=== PATIENT | female | born 1970 | race Caucasian/White ===

== ENCOUNTER → 2023-12-09 | Outpatient (CLI) | payer OTHER, SELFPAY ==
--- NOTE | 2023-12-09 15:57 | MRI_ITS ---
STUDY: MRI LUMBAR SPINE WITHOUT CONTRAST REASON FOR EXAM: Female, 53 years old. Pain TECHNIQUE: Standardized fat and water weighted pulse sequences were obtained in the sagittal and axial planes. COMPARISON: Radiograph lumbar spine November 20, 2023 FINDINGS: T12-L1: Normal endplates. Normal disc height, hydration and morphology. Normal bilateral facet joints. Normal central canal and bilateral lateral recesses. Normal bilateral intervertebral neural foramina. Normal lumbar lordosis. There is no substantial scoliosis. Normal conus medullaris that terminates at the L1 level. Buckling of the cauda equina. L1-2: Normal endplates. Normal disc height, hydration and morphology. Normal bilateral facet joints. Normal central canal and bilateral lateral recesses. Normal bilateral intervertebral neural foramina. L2-3: Fluid-filled hypertrophic facets and mild broad-based annular bulge causing mild narrowing of the thecal sac and neural foramina. L3-4: Moderate circumferential disc marginal osteophyte. Severe trefoil type narrowing of the thecal sac and neural foramina fluid-filled hypertrophic facet disease. L4-5: Normal endplates. Decreased disc height, hydration and morphology. Normal bilateral facet joints. Normal central canal and bilateral lateral recesses. Normal bilateral intervertebral neural foramina. Posterior fusion rods and bilateral pedicular screws L4 and L5. Laminectomy. L5-S1: Normal endplates. Decreased disc height, hydration and morphology. Normal bilateral facet joints. Normal central canal and bilateral lateral recesses. Normal bilateral intervertebral neural foramina. Bilateral pedicular screws and posterior fusion rods L5-S1. Laminectomy. Normal visualized sacral ala. Normal visualized paraspinous soft tissue structures. MRI/Spine Lumbar (Routine) IMPRESSION: Posterior interbody fusion L4-L5 and S1. Severe spinal stenosis and L3-4. Electronically Signed: Ned Parker MD at 1:12 EDT ,
== END | disposition home or self-care (01) ==
LOC: MRI 15:35
PROVIDERS: PCP Internal Medicine; Referring Provider Orthopaedic Surgery Orthopaedic Surgery of the Spine; Visit Provider Orthopaedic Surgery Orthopaedic Surgery of the Spine
DX: M43.16 Spondylolisthesis, lumbar region (principal)
CPT/HCPCS: 72148

== ENCOUNTER → 2024-12-13 | Outpatient (CLI) | payer OTHER, SELFPAY | END | disposition home or self-care (01) | LOC: LAB 15:33 | PROVIDERS: Referring Provider Anesthesiology; Visit Provider Anesthesiology | DX: E11.9 Type 2 diabetes mellitus without complications (principal) | CPT/HCPCS: 36415; 83036 ==

== ENCOUNTER → 2025-02-03 | Outpatient (CLI) | payer OTHER, SELFPAY | END | disposition home or self-care (01) | LOC: LAB 09:12 | PROVIDERS: Referring Provider Anesthesiology; Visit Provider Anesthesiology | DX: E11.9 Type 2 diabetes mellitus without complications (principal) | CPT/HCPCS: 36415; 83036 ==

== ENCOUNTER → 2025-03-16 | Outpatient (CLI) | payer OTHER, SELFPAY ==
--- NOTE | 2025-03-16 16:04 | MRI_ITS ---
PROCEDURE: SPINE CERVICAL (ROUTINE) 03/16/2025 REASON FOR EXAM: CERVICAL RADICULOPATHY TECHNIQUE: SPINE CERVICAL (ROUTINE) Multiplanar and multisequence images were obtained without IV contrast administration. COMPARISON: None. FINDINGS: Vertebrae: Cervical vertebral body heights are preserved. Bone marrow signal is unremarkable. Alignment: Normal. No spondylolisthesis. Spinal Cord: Cervical spinal cord is of normal size and signal intensities. Structures at the foramen magnum are unremarkable. C2-3: Facet joint arthropathy. No foraminal or canal stenosis. C3-4: Disc osteophyte complex. Facet joint arthropathy. Severe right and mild left foramina stenosis. No canal stenosis. C4-5: Disc osteophyte complex. Uncovertebral hypertrophy. Facet joint arthropathy. Severe left and mild right foramina stenosis. No canal stenosis. C5-6: Disc osteophyte complex. Uncovertebral hypertrophy. Facet joint arthropathy. Mild left and moderate right foramina stenosis. Mild canal stenosis. C6-7: Disc osteophyte complex. Facet joint arthropathy. Severe left and mild right foramina stenosis. Mild canal stenosis. C7-T1: Unremarkable MRI/Spine Cervical (Routine) IMPRESSION: Severe right foramina stenosis at C3-C4, severe left foramina stenosis at C4-C5 and C6-C7. No significant canal stenosis. Reading Location: [facility]
--- NOTE | 2025-03-16 16:04 | MRI_ITS ---
PROCEDURE: SPINE LUMBAR (ROUTINE) 03/16/2025 REASON FOR EXAM: LUMBAR RADICULOPATHY TECHNIQUE: SPINE LUMBAR (ROUTINE) COMPARISON: Lumbar spine MRI December 09, 2023. FINDINGS: Vertebrae: Preserved in height and signal Alignment: Normal alignment. Conus Medullaris: Unremarkable. Crowding at the cauda equina nerves posterior to L2. L1-2: No foraminal or canal stenosis. L2-3: Disc bulge. Prominence of the extra dural fat. Facet joint arthropathy. Severe narrowing of the lumbar canal. Mild bilateral inferior neural foramina stenosis. L3-4: Disc bulge. Facet joint arthropathy. Severe canal stenosis. Mild bilateral foramina stenosis. L4-5: Status post posterior fusion and laminectomies. No significant foraminal stenosis. L5-S1: Status post posterior fusion and laminectomies. No significant foraminal stenosis. Sacrum: Unremarkable. MRI/Spine Lumbar (Routine) IMPRESSION: Status post posterior fusion of L4-L5 and L5-S1. Severe canal stenosis at L2-L3 and L3-L4. Compared to MRI December 09, 2023, worsening stenosis of the canal at L2-L3. Reading Location: [id number]
== END | disposition home or self-care (01) ==
LOC: MRI 16:02
PROVIDERS: Referring Provider Orthopaedic Surgery Orthopaedic Surgery of the Spine; Visit Provider Orthopaedic Surgery Orthopaedic Surgery of the Spine
DX: M54.12 Radiculopathy, cervical region (principal); M54.16 Radiculopathy, lumbar region; M43.26 Fusion of spine, lumbar region; M43.16 Spondylolisthesis, lumbar region
CPT/HCPCS: 72141; 72148

== ENCOUNTER → 2025-06-08 | Outpatient (CLI) | payer OTHER, SELFPAY ==
--- NOTE | 2025-06-08 16:27 | CT_ITS ---
PROCEDURE: CT SPINE LUMBAR WITHOUT CONTRAST 06/08/2025 REASON FOR EXAM: LUMBAR STENOSIS TECHNIQUE: Procedure Code: CTSPL Modality: CT Procedure: SPINE LUMBAR WITHOUT CONTRAST Coronal and Sagittal reconstruction series were provided. One or more dose reduction techniques were used (e.g., Automated exposure control, adjustment of the mA and/or kV according to patient size, use of iterative reconstruction technique COMPARISON: Correlation with lumbar spine MRI 03/16/2025. RADIATION DOSE SUMMARY: CTDlvol: 41.85 mGy DLP: 1069.93 mGycm FINDINGS: Postoperative changes of dorsal decompressive laminectomy and posterior metallic instrumented fusion from L4-S1. No evidence of hardware loosening or failure. No acute fracture or subluxation. Alignment is anatomic. Multilevel spondylotic changes with varying degrees of disc space narrowing with vacuum disc phenomena, prominent endplate sclerosis with multiple scattered degenerative Schmorl's nodes and/or subchondral cysts, anterior endplate osteophytosis, and hypertrophic facet arthropathy. Redemonstrated disc bulging with moderate-advanced spinal canal stenosis at L3- 4, and mild-moderate stenosis at L2-3. No high-grade neural foraminal narrowing appreciated. CT/Spine Lumbar without Contrast IMPRESSION: Postop changes of dorsal decompression and instrumented fusion from L4-S1. Multilevel spondylotic changes with disc bulging at the adjacent segments, with redemonstrated moderate-advanced spinal canal stenosis at L3-4, and mild-moderate stenosis at L2-3, which is better depicted on the prior MRI from 03/16/2025. Reading Location: [id number]
== END | disposition home or self-care (01) ==
LOC: CT 16:22
PROVIDERS: Referring Provider Orthopaedic Surgery Orthopaedic Surgery of the Spine; Visit Provider Orthopaedic Surgery Orthopaedic Surgery of the Spine
DX: M48.062 Spinal stenosis, lumbar region with neurogenic claudication (principal); Z98.1 Arthrodesis status
CPT/HCPCS: 72131

== ENCOUNTER 2025-06-12 12:04 | Observation (INO) | payer OTHER, SELFPAY ==
--- NOTE | 2025-06-01 13:37 | EKG12_ITS ---
Test Reason : PREOP
[2025-06-01 15:11] LABS: Hematocrit 37.0 % (37-47); Hemoglobin 13.3 g/dL (12.0-15.0); Immature Granulocytes Count 0.040 X10^3/uL (0.0-0.0); Mean Corp Hgb Conc 35.9 g/dL (32-36); Mean Corpuscular Volume 84.9 fL (81-99); Mean Platelet Vol. 9.1 fl (6.2-12.0); NRBC Flagged by Analyzer 0 % (0-5); Platelet Count 297 K/mm3 (150-450); RBC Distribution Width CV 12.3 % (11.6-14.6); RBC Distribution Width SD 37.7 fl (35.1-43.9); Red Blood Count 4.36 M/mm3 (4.2-5.4); White Blood Count 7.1 K/mm3 (4.4-11.0)
[2025-06-01 16:02] LABS: Anion Gap 14 (5-15); BUN 13 mg/dL (4-19); BUN/Creat Ratio 25.1 RATIO (10-20); Calcium,Total 9.1 mg/dL (7.6-11.0); Carbon Dioxide 18.6 mmol/L (21.0-32.0); Chloride 95 mmol/L (98-108); Glucose 135 mg/dL (70-99); Magnesium 1.8 mg/dL (1.5-2.2); Potassium 4.4 mmol/L (3.3-5.1)
--- NOTE | 2025-06-02 17:22 | PAT.ANESEVAL ---
Pre-Assessment Diagnosis/Proposed Procedure Planned Operative Procedure(s): 360 LUMBAR FUSION L2-L3 L3-4 WITH REVISION OF POSTERIOR INSTRUMENTATION L2-3 L3-4 L4-5 L5-S1 REMOVAL OF PREVIOUS HARDWARE Anesthesia History Anesthesia History - gravedigger: Anesthesia History - gravedigger Hx Hospitalization No 05/26/25 10:10 Any Problems With Anesthesia No 05/26/25 10:10 Cholinesterase deficiency No 05/26/25 10:10 You/Your Family Experience No 05/26/25 10:10 fever (hyperthermia) with Relationship Recent Exposure to Contagious Disease Does patient have nerve No 05/26/25 10:10 stimulator Patient instructed to have device shut off --Does patient have Pacemaker or ICD? When Was Last Pacemaker Check QUESTION #4 FULL TEXT: You/Your Family Experience fever (hyperthermia) with Anesthesia Last Oral Intake Last Oral intake: Last Oral Intake NPO since Meds taken in AM with sips of water? Meds patient instructed to take am of surgery PONV PONV - gravedigger: PONV - gravedigger Female Yes 05/26/25 10:10 HX of Motion Sickness Yes 05/26/25 10:10 HX of N/V After Surgery No 05/26/25 10:10 Non-Smoker Yes 05/26/25 10:10 Duration of Surgery greater Yes 05/26/25 10:10 than 60 minutes Number of Risk Factors 4 05/26/25 10:10 PONV Score Severe Risk 05/26/25 10:10 Height & Weight Height & Weight: Anesthesia: Height & Weight Height 5 ft 6.5 in 03/23/25 13:41 Respiratory Assessment Respiratory Assessment - gravedigger: Respiratory Tract Infection Hx - gravedigger Hx Respiratory Tract Infection No 05/26/25 10:10 STOP Sleep Apnea STOP Sleep Apnea - gravedigger: STOP Sleep Apnea - gravedigger Hx Hypertension Yes: CONTROLLED WITH MEDS 05/26/25 10:10 Hx Sleep Apnea Yes 05/26/25 10:10 CPAP Yes 05/26/25 10:10 BIPAP No 05/26/25 10:10 Do you snore loudly (louder than talking or can be heard Do you often feel tired/ fatigued/ sleepy during daytime? Has anyone observed you stop breathing during sleep? STOP Results Positive 05/26/25 10:10 QUESTION #5 FULL TEXT : Do you snore loudly (louder than talking or can be heard through closed doors)? 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 Specify any problems Hx of Preganancy in last 3 No 05/26/25 10:10 Months Nurse Filling Out Transfusion DSCHRIBER 05/26/25 10:10 & Questions: Date: 05/26/25 05/26/25 10:10 Time: 10:12 05/26/25 10:10 Patient unable to answer at this time (ie. confused, unrespo /Reproduction History /Reproductive History - gravedigger: /Reproductive Hx- gravedigger Hx Now No 05/26/25 10:10 Gestational Age (in weeks): EDC: Hx Hx Para Hx Section SAB No 05/26/25 10:10 PFSH Medical History (Updated 05/26/25 @ 10:23 by Natalya Tejeda) Loss of hearing Wears glasses Post-menopausal Marijuana use Thyroid disease Ambulates with cane Walker as ambulation aid High cholesterol Back pain TIA (transient ischemic attack) Syncope Dietary restriction Vapes nicotine containing substance Former smoker CPAP (continuous positive airway pressure) dependence History of pain when walking History of echocardiogram Lumbar stenosis Cervical radiculopathy PTSD (post-traumatic stress disorder) Bipolar 1 disorder Vitamin D deficiency Neuropathy Hypertension Diabetes type 2, controlled Chronic bronchitis Arthritis Home Medications ?Medication ?Instructions ?Recorded ?Last Taken ?Type carvedilol 6.25 mg tablet 12.5 mg PO BID HEART 09/22/22 Unknown History losartan 100 mg tablet 100 mg PO DAILY BP 09/22/22 Unknown History multivitamin 1 tab PO DAILY SUPPLEMENT 09/22/22 Unknown History aspirin 81 mg tablet 81 mg PO DAILY HEART HEALTH 11/20/23 Unknown History magnesium 250 mg tablet 500 mg PO QHS CRAMPS 11/20/23 Unknown History nifedipine 30 mg tablet,extended 90 mg PO DAILY BP 11/20/23 Unknown History release turmeric root extract 500 mg 1,000 mg PO BID SUPPLEMENT 11/20/23 Unknown History capsule metformin 500 mg tablet,extended 1,000 mg PO BID DIABETES 12/17/23 Unknown History release 24 hr melatonin 3 mg capsule 5 mg PO HS PRN sleep 01/05/25 Unknown History bupropion HCl 300 mg 24 hr tablet, 300 mg PO QAM PTSD 30 days #30 tabs 05/23/25 Unknown Rx extended release venlafaxine 150 mg 150 mg PO DAILY BIPOLAR 30 days 05/23/25 Unknown Rx capsule,extended release 24 hr #30 caps INNO CLEANSE 2 cap PO DAILY FIBER 05/26/25 Unknown History NMNH 2 cap PO DAILY SUPPLEMENT 05/26/25 Unknown History aripiprazole 15 mg tablet 15 mg PO QHS BIPOLAR 05/26/25 Unknown History diclofenac potassium 50 mg tablet 50 mg PO TID PRN pain 05/26/25 Unknown History omega 2-itq-njp-fish oil 1,200 mg 2 cap PO DAILY SUPPLEMENT 05/26/25 Unknown History (144 mg-216 mg) capsule (Fish Oil) pioglitazone 30 mg tablet 30 mg PO QHS DIABETES 05/26/25 Unknown History vitamin D3 125 mcg (5,000 1 cap PO DAILY SUPPLEMENT 05/26/25 Unknown History unit)-vitamin K2 100 mcg capsule carbamazepine 200 mg tablet 300 mg (1.5 x 200 mg) PO BID 05/31/25 Unknown Rx BIPOLAR 30 days #90 tabs Allergy/AdvReac Type Severity Reaction Status Date / Time azithromycin Allergy Mild Hives Verified 05/26/25 09:51 Sulfa (Sulfonamide Allergy Mild Other Verified 05/26/25 09:51 Antibiotics) Family History Other Alcoholism Anxiety Arthritis defect Breast cancer CVA (cerebral vascular accident) Cancer Depression Diabetes Hypertension Mental disorder Myocardial infarction Suicide attempt Surgical History (Updated 05/26/25 @ 10:23 by Natalya Tejeda) Hx of colonoscopy Hx of dilation and curettage Hx of decompressive lumbar laminectomy History of lumbar fusion Social History Smoking Status: Former smoker Smokeless tobacco user: other alcohol intake: current alcohol intake frequency: other details: Rarley 3-4 a year substance use type: does not use Audit: Pertinent Findings Pertinent Findings EKG Perinent findings: 06/01/2025. Normal sinus rhythm. Additional pertinent findings: 06/01/2025. Sodium is 128. Recommendation Anesthesia Recommendation Anesthesia recommendation: F/U recommended (Patient's latest sodium is 128. No previous labs to compare. Patient needs sodium to be over 130 for surgery. Recommend medicine follow-up and treatment.)
--- NOTE | 2025-06-08 16:32 | PAT.ANESEVAL ---
Pre-Assessment Diagnosis/Proposed Procedure Planned Operative Procedure(s): 360 LUMBAR FUSION L2-L3 L3-4 WITH REVISION OF POSTERIOR INSTRUMENTATION L2-3 L3-4 L4-5 L5-S1 REMOVAL OF PREVIOUS HARDWARE Anesthesia History Anesthesia History - progress developer: Anesthesia History - progress developer Hx Hospitalization No 05/26/25 10:10 Any Problems With Anesthesia No 05/26/25 10:10 Cholinesterase deficiency No 05/26/25 10:10 You/Your Family Experience No 05/26/25 10:10 fever (hyperthermia) with Relationship Recent Exposure to Contagious Disease Does patient have nerve No 05/26/25 10:10 stimulator Patient instructed to have device shut off --Does patient have Pacemaker or ICD? When Was Last Pacemaker Check QUESTION #4 FULL TEXT: You/Your Family Experience fever (hyperthermia) with Anesthesia Last Oral Intake Last Oral intake: Last Oral Intake NPO since Meds taken in AM with sips of water? Meds patient instructed to take am of surgery PONV PONV - progress developer: PONV - progress developer Female Yes 05/26/25 10:10 HX of Motion Sickness Yes 05/26/25 10:10 HX of N/V After Surgery No 05/26/25 10:10 Non-Smoker Yes 05/26/25 10:10 Duration of Surgery greater Yes 05/26/25 10:10 than 60 minutes Number of Risk Factors 4 05/26/25 10:10 PONV Score Severe Risk 05/26/25 10:10 Height & Weight Height & Weight: Anesthesia: Height & Weight Height 5 ft 6.5 in 03/23/25 13:41 Respiratory Assessment Respiratory Assessment - progress developer: Respiratory Tract Infection Hx - progress developer Hx Respiratory Tract Infection No 05/26/25 10:10 STOP Sleep Apnea STOP Sleep Apnea - progress developer: STOP Sleep Apnea - progress developer Hx Hypertension Yes: CONTROLLED WITH MEDS 05/26/25 10:10 Hx Sleep Apnea Yes 05/26/25 10:10 CPAP Yes 05/26/25 10:10 BIPAP No 05/26/25 10:10 Do you snore loudly (louder than talking or can be heard Do you often feel tired/ fatigued/ sleepy during daytime? Has anyone observed you stop breathing during sleep? STOP Results Positive 05/26/25 10:10 QUESTION #5 FULL TEXT : Do you snore loudly (louder than talking or can be heard through closed doors)? 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 Specify any problems Hx of Preganancy in last 3 No 05/26/25 10:10 Months Nurse Filling Out Transfusion DSCHRIBER 05/26/25 10:10 & Questions: Date: 05/26/25 05/26/25 10:10 Time: 10:12 05/26/25 10:10 Patient unable to answer at this time (ie. confused, unrespo /Reproduction History /Reproductive History - progress developer: /Reproductive Hx- progress developer Hx Now No 05/26/25 10:10 Gestational Age (in weeks): EDC: Hx Hx Para Hx Section SAB No 05/26/25 10:10 PFSH Medical History (Updated 06/08/25 @ 15:43 by Karen Henry RN) Lumbar stenosis with neurogenic claudication Obesity (BMI 30-39.9) Loss of hearing Wears glasses Post-menopausal Marijuana use Thyroid disease Ambulates with cane Walker as ambulation aid High cholesterol Back pain TIA (transient ischemic attack) Syncope Dietary restriction Vapes nicotine containing substance Former smoker CPAP (continuous positive airway pressure) dependence History of pain when walking History of echocardiogram Lumbar stenosis Cervical radiculopathy PTSD (post-traumatic stress disorder) Bipolar 1 disorder Vitamin D deficiency Neuropathy Hypertension Diabetes type 2, controlled Chronic bronchitis Arthritis Home Medications ?Medication ?Instructions ?Recorded ?Last Taken ?Type carvedilol 6.25 mg tablet 12.5 mg PO BID HEART 09/22/22 Unknown History losartan 100 mg tablet 100 mg PO DAILY BP 09/22/22 Unknown History multivitamin 1 tab PO DAILY SUPPLEMENT 09/22/22 Unknown History aspirin 81 mg tablet 81 mg PO DAILY HEART HEALTH 11/20/23 Unknown History magnesium 250 mg tablet 500 mg PO QHS CRAMPS 11/20/23 Unknown History nifedipine 30 mg tablet,extended 90 mg PO DAILY BP 11/20/23 Unknown History release turmeric root extract 500 mg 1,000 mg PO BID SUPPLEMENT 11/20/23 Unknown History capsule metformin 500 mg tablet,extended 1,000 mg PO BID DIABETES 12/17/23 Unknown History release 24 hr melatonin 3 mg capsule 5 mg PO HS PRN sleep 01/05/25 Unknown History bupropion HCl 300 mg 24 hr tablet, 300 mg PO QAM PTSD 30 days #30 tabs 05/23/25 Unknown Rx extended release venlafaxine 150 mg 150 mg PO DAILY BIPOLAR 30 days 05/23/25 Unknown Rx capsule,extended release 24 hr #30 caps INNO CLEANSE 2 cap PO DAILY FIBER 05/26/25 Unknown History NMNH 2 cap PO DAILY SUPPLEMENT 05/26/25 Unknown History aripiprazole 15 mg tablet 15 mg PO QHS BIPOLAR 05/26/25 Unknown History diclofenac potassium 50 mg tablet 50 mg PO TID PRN pain 05/26/25 Unknown History omega 7-hdf-tpc-fish oil 1,200 mg 2 cap PO DAILY SUPPLEMENT 05/26/25 Unknown History (144 mg-216 mg) capsule (Fish Oil) pioglitazone 30 mg tablet 30 mg PO QHS DIABETES 05/26/25 Unknown History vitamin D3 125 mcg (5,000 1 cap PO DAILY SUPPLEMENT 05/26/25 Unknown History unit)-vitamin K2 100 mcg capsule carbamazepine 200 mg tablet 300 mg (1.5 x 200 mg) PO BID 05/31/25 Unknown Rx BIPOLAR 30 days #90 tabs Allergy/AdvReac Type Severity Reaction Status Date / Time azithromycin Allergy Mild Hives Verified 06/08/25 14:59 Sulfa (Sulfonamide Allergy Mild Other Verified 06/08/25 14:59 Antibiotics) Family History Other Alcoholism Anxiety Arthritis defect Breast cancer CVA (cerebral vascular accident) Cancer Depression Diabetes Hypertension Mental disorder Myocardial infarction Suicide attempt Surgical History Hx of colonoscopy Hx of dilation and curettage Hx of decompressive lumbar laminectomy History of lumbar fusion Social History Smoking Status: Former smoker Smokeless tobacco user: other alcohol intake: current alcohol intake frequency: other details: Rarley 3-4 a year substance use type: does not use Audit: Pertinent Findings HISTORY of Pertinent Findings History of Pertinent Findings: EKG Pertinent Findings EKG Perinent findings 06/01/2025. Normal sinus 06/02/25 17:24 rhythm. Additional Pertinent Findings Additional pertinent findings 06/01/2025. Sodium is 128. 06/02/25 17:24 Pertinent Findings Consult pertinent findings: 06/07/2025. [facility] family medicine. Hyponatremia due to medication per nephrology. Unable to wean medications secondary to dependency. Sodium is 130 on recheck. Sodium bicarb tablet 3 times daily x 3 days. Recommendation Anesthesia Recommendation Anesthesia recommendation: OPTIMIZED for anesthesia (Recheck sodium on day of surgery. As long as over 130, patient is cleared to proceed.)
[2025-06-12] VITALS (13 sets, daily range): BP systolic 114–199; BP diastolic 75–99; PULSE 60–98; RESP 14–18; TEMP 36.1–37.2; O2SAT 94–98; BMI 37.5; BMI 37.0
[2025-06-12] MEDS: Lactated Ringers 1,000 ML 15 ML IV (06:18)
[2025-06-12] MEDS: Magnesium 2 GM for ERAS IV (06:20)
--- NOTE | 2025-06-12 06:30 | RAD_ITS ---
RAD/Lumbar Spine 2 or 3 Views
--- NOTE | 2025-06-12 06:38 | PCM.PRE.AN2 ---
ASA Classification* ASA Classification ASA Classification: 2 Assessment & Plan Anesthesia* Anesthesia Assessment Anesthesia Assessment: Discussed sedation and/or anesthesia options, risks, benefits, and alternatives with patient/parents/legal guardian/POA. Questions invited. The patient/parents/legal guardian/POA seems to understand and agrees to proceed with anesthesia plan. Reviewed the physical assessment, medical history, allergy history and patient home medications list prior to surgery/procedure/anesthetic and documented any changes. Performed airway and anesthesia risk assessments. Anesthesia Type Anesthesia Type: General Anesthesia Focused Assessment* Temperature: 97.0 F Pulse Rate: 77 Blood Pressure: 164/99 Respiratory Rate: 18 Pulse Ox: 98 Airway Assessment Mouth opens: >3 cm Mallampati Score: II Labs Anesthesia Preop lab: CBC WBC, (4.4-11.0) 7.1 K/mm3 06/01/25, 14:22 RBC, (4.2-5.4) 4.36 M/mm3 06/01/25, 14:22 Hgb, (12.0-15.0) 13.3 g/dL 06/01/25, 14:22 Hct, (37-47) 37.0 % 06/01/25, 14:22 Plt Count, (150-450) 297 K/mm3 06/01/25, 14:22 CHEMISTRY Potassium, (3.3-5.1) 4.4 mmol/L 06/01/25, 14:22 Sodium, (133-145) 128 mmol/L L 06/01/25, 14:22 Magnesium, (1.5-2.2) 1.8 mg/dL 06/01/25, 14:22 BUN, (4-19) 13 mg/dL 06/01/25, 14:22 Creatinine, (0.70-1.20) 0.53 mg/dL L 06/01/25, 14:22 Glucose, (70-99) 135 mg/dL H 06/01/25, 14:22 COAG Pre-Assessment Diagnosis/Proposed Procedure Planned Operative Procedure(s): 360 LUMBAR FUSION L2-L3 L3-4 WITH REVISION OF POSTERIOR INSTRUMENTATION L2-3 L3-4 L4-5 L5-S1 REMOVAL OF PREVIOUS HARDWARE Anesthesia History 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 When Was Last Pacemaker Check QUESTION #4 FULL TEXT: You/Your Family Experience fever (hyperthermia) with Anesthesia Last Oral Intake Last Oral intake: Last Oral Intake NPO since 05:30 06/12/25 06:07 Meds taken in AM with sips of Yes 06/12/25 06:07 water? Meds patient instructed to see medlist 06/12/25 06:07 take am of surgery PONV PONV - marketing content specialist: PONV - marketing content specialist Female Yes 05/26/25 10:10 HX of Motion Sickness Yes 05/26/25 10:10 HX of N/V After Surgery No 05/26/25 10:10 Non-Smoker Yes 05/26/25 10:10 Duration of Surgery greater Yes 05/26/25 10:10 than 60 minutes Number of Risk Factors 4 05/26/25 10:10 PONV Score Severe Risk 05/26/25 10:10 Height & Weight Height & Weight: Anesthesia: Height & Weight Height 5 ft 6.5 in 06/12/25 06:07 Weight: 107 kg 06/12/25 06:07 Body Mass Index (BMI) 37.5 06/12/25 06:07 Respiratory Assessment Respiratory Assessment - marketing content specialist: Respiratory Tract Infection Hx - marketing content specialist Hx Respiratory Tract Infection No 05/26/25 10:10 STOP Sleep Apnea STOP Sleep Apnea - marketing content specialist: STOP Sleep Apnea - marketing content specialist Hx Hypertension Yes: CONTROLLED WITH MEDS 05/26/25 10:10 Hx Sleep Apnea Yes 05/26/25 10:10 CPAP Yes 05/26/25 10:10 BIPAP No 05/26/25 10:10 Do you snore loudly (louder than talking or can be heard Do you often feel tired/ fatigued/ sleepy during daytime? Has anyone observed you stop breathing during sleep? STOP Results Positive 05/26/25 10:10 QUESTION #5 FULL TEXT : Do you snore loudly (louder than talking or can be heard through closed doors)? Tobacco Use History Tobacco Use History - marketing content specialist: Tobacco Use History - marketing content specialist Tobacco Use Smoking Status Former smoker 05/26/25 10:10 Hx Tobacco Use No 05/26/25 10:10 Years Smoking Packs Smoked per Day Smoking Cessation Date was Yes - quit smoking within 15 05/26/25 10:10 within the last 15 years years Hx Smoking Cessation Date 08/10/22 05/26/25 10:10 Hx Smoking Cessation No 05/26/25 10:10 Counseling Hematologic Medial History Hematologic Hx - marketing content specialist: Hematologic Medical Hx - supervisor wet room Hx of Blood Transfusion No 05/26/25 10:10 Hx of Transfusion in last 3 No 05/26/25 10:10 Months Date of Last Transfusion (if within last 3 months) Ever experience any problems No 05/26/25 10:10 with transfusion(s)? Specify any problems Hx of Preganancy in last 3 No 05/26/25 10:10 Months Nurse Filling Out Transfusion DSCHRIBER 05/26/25 10:10 & Questions: Date: 05/26/25 05/26/25 10:10 Time: 10:12 05/26/25 10:10 Patient unable to answer at this time (ie. confused, unrespo /Reproduction History /Reproductive History - marketing content specialist: /Reproductive Hx- marketing content specialist Hx Now No 05/26/25 10:10 Gestational Age (in weeks): EDC: Hx Hx Para Hx Section SAB No 05/26/25 10:10 Active Medications Active Medications: Current Medications Generic Name Dose Route Start Last Admin Trade Name Freq PRN Reason Stop Dose Admin Acetaminophen 1,000 mg 06/12/25 07:30 06/12/25 06:19 Acetaminophen 500 Mg Tablet PO 06/12/25 07:31 1,000 mg PREOP ONE Administration Cefazolin Sodium 2 gm/ Sodium 110 mls @ 150 mls/hr 06/12/25 07:30 Chloride IV 06/12/25 08:13 INTRAOP ONE Tranexamic Acid 1,000 mg/ 110 mls @ 440 mls/hr 06/12/25 07:30 Sodium Chloride IV 06/12/25 07:44 INTRAOP ONE Tranexamic Acid 1,000 mg/ 110 mls @ 440 mls/hr 06/12/25 07:30 Sodium Chloride IV 06/12/25 07:44 INTRAOP ONE Magnesium Sulfate 2 gm/ 104 mls @ 208 mls/hr 06/12/25 07:30 06/12/25 06:20 Dextrose IV 06/12/25 07:59 208 mls/hr PREOP ONE Administration Lactated Ringer's 1,000 mls @ 15 mls/hr 06/12/25 05:45 06/12/25 06:18 IV 15 mls/hr .Q48H SANJUANA Administration Insulin Human Lispro 1 - 6 unit 06/12/25 07:30 Insulin Lispro 100 Unit/Ml Insuln.Pen SC 06/13/25 07:31 Q4H PRN PRN BG>/= 180, SEE PROTOCOL Protocol PFS Medical History Lumbar stenosis with neurogenic claudication Obesity (BMI 30-39.9) Loss of hearing Wears glasses Post-menopausal Marijuana use Thyroid disease Ambulates with cane Walker as ambulation aid High cholesterol Back pain TIA (transient ischemic attack) Syncope Dietary restriction Vapes nicotine containing substance Former smoker CPAP (continuous positive airway pressure) dependence History of pain when walking History of echocardiogram Lumbar stenosis Cervical radiculopathy PTSD (post-traumatic stress disorder) Bipolar 1 disorder Vitamin D deficiency Neuropathy Hypertension Diabetes type 2, controlled Chronic bronchitis Arthritis Home Medications ?Medication ?Instructions ?Recorded ?Last Taken ?Type carvedilol 6.25 mg tablet 12.5 mg PO BID HEART 09/22/22 06/12/25 History multivitamin 1 tab PO DAILY SUPPLEMENT 09/22/22 06/10/25 History aspirin 81 mg tablet 81 mg PO DAILY HEART HEALTH 11/20/23 06/10/25 History magnesium 250 mg tablet 500 mg PO QHS CRAMPS 11/20/23 06/10/25 History nifedipine 30 mg tablet,extended 90 mg PO DAILY BP 11/20/23 06/12/25 History release turmeric root extract 500 mg 1,000 mg PO BID SUPPLEMENT 11/20/23 06/10/25 History capsule metformin 500 mg tablet,extended 1,000 mg PO BID DIABETES 12/17/23 06/11/25 History release 24 hr melatonin 3 mg capsule 5 mg PO HS PRN sleep 01/05/25 06/10/25 History bupropion HCl 300 mg 24 hr tablet, 300 mg PO QAM PTSD 30 days #30 tabs 05/23/25 06/11/25 Rx extended release venlafaxine 150 mg 150 mg PO DAILY BIPOLAR 30 days 05/23/25 06/12/25 Rx capsule,extended release 24 hr #30 caps INNO CLEANSE 2 cap PO DAILY FIBER 05/26/25 Unknown History aripiprazole 15 mg tablet 15 mg PO QHS BIPOLAR 05/26/25 06/11/25 History omega 6-ohj-ysh-fish oil 1,200 mg 2 cap PO DAILY SUPPLEMENT 05/26/25 06/10/25 History (144 mg-216 mg) capsule (Fish Oil) pioglitazone 30 mg tablet 30 mg PO QHS DIABETES 05/26/25 06/11/25 History vitamin D3 125 mcg (5,000 1 cap PO DAILY SUPPLEMENT 05/26/25 06/10/25 History unit)-vitamin K2 100 mcg capsule carbamazepine 200 mg tablet 300 mg (1.5 x 200 mg) PO BID 05/31/25 06/12/25 Rx BIPOLAR 30 days #90 tabs meloxicam 7.5 mg tablet 7.5 mg PO DAILY 06/12/25 06/11/25 History valsartan 40 mg tablet (Diovan) 160 mg PO DAILY 06/12/25 06/12/25 History Allergy/AdvReac Type Severity Reaction Status Date / Time azithromycin Allergy Mild Hives Verified 06/12/25 06:01 Sulfa (Sulfonamide Allergy Mild Other Verified 06/12/25 06:01 Antibiotics) Family History Other Alcoholism Anxiety Arthritis defect Breast cancer CVA (cerebral vascular accident) Cancer Depression Diabetes Hypertension Mental disorder Myocardial infarction Suicide attempt Surgical History Hx of colonoscopy Hx of dilation and curettage Hx of decompressive lumbar laminectomy History of lumbar fusion Social History Smoking Status: Former smoker Smokeless tobacco user: other alcohol intake: current alcohol intake frequency: other details: Rarley 3-4 a year substance use type: does not use Review of Systems (Anesthesia) ROS Narrative System reviewed and no additional complaints, except as documented.
--- NOTE | 2025-06-12 07:16 | HP.PCM_ITS ---
History and Physical
--- NOTE | 2025-06-12 07:16 | PCM.HP.BLA ---
History and Physical Date of Admission: 06/12/25 MR#: [id number] Acct: [id number] Name: REINIER EWING Rep #: [id number] : 1970 Provider: Dr. Yair Benedict MD Age/Sex: 55/F Location: [facility] [place] Status: Signed Intake Vital Signs 03/23/2513:41 05/23/2513:49 06/08/2514:55 Height 5 ft 6.5 in 5 ft 6.5 in 5 ft 6.5 in Weight: 235 lb 2 oz 236 lb BMI 37.3 37.5 Intake Visit Reasons: lumbar spine Chief Complaint: Lumbar spine pre op Accompanied by: Self Is patient in pain?: Yes Pain scale (1-10): 5 Allergies azithromycin Allergy (Mild, Verified 06/08/25 14:59) Hives Sulfa (Sulfonamide Antibiotics) Allergy (Mild, Verified 06/08/25 14:59) Other Medications ?Medication ?Instructions ?Recorded ?Confirmed ?Type carvedilol 6.25 mg tablet 12.5 mg PO BID HEART 09/22/22 06/08/25 History losartan 100 mg tablet 100 mg PO DAILY BP 09/22/22 06/08/25 History multivitamin 1 tab PO DAILY SUPPLEMENT 09/22/22 06/08/25 History aspirin 81 mg tablet 81 mg PO DAILY HEART HEALTH 11/20/23 06/08/25 History magnesium 250 mg tablet 500 mg PO QHS CRAMPS 11/20/23 06/08/25 History nifedipine 30 mg tablet,extended 90 mg PO DAILY BP 11/20/23 06/08/25 History release turmeric root extract 500 mg 1,000 mg PO BID SUPPLEMENT 11/20/23 06/08/25 History capsule metformin 500 mg tablet,extended 1,000 mg PO BID DIABETES 12/17/23 06/08/25 History release 24 hr melatonin 3 mg capsule 5 mg PO HS PRN sleep 01/05/25 06/08/25 History bupropion HCl 300 mg 24 hr tablet, 300 mg PO QAM PTSD 30 days #30 tabs 05/23/25 06/08/25 Rx extended release venlafaxine 150 mg 150 mg PO DAILY BIPOLAR 30 days 05/23/25 06/08/25 Rx capsule,extended release 24 hr #30 caps INNO CLEANSE 2 cap PO DAILY FIBER 05/26/25 06/08/25 History NMNH 2 cap PO DAILY SUPPLEMENT 05/26/25 06/08/25 History aripiprazole 15 mg tablet 15 mg PO QHS BIPOLAR 05/26/25 06/08/25 History diclofenac potassium 50 mg tablet 50 mg PO TID PRN pain 05/26/25 06/08/25 History omega 7-wdm-yfk-fish oil 1,200 mg 2 cap PO DAILY SUPPLEMENT 05/26/25 06/08/25 History (144 mg-216 mg) capsule (Fish Oil) pioglitazone 30 mg tablet 30 mg PO QHS DIABETES 05/26/25 06/08/25 History vitamin D3 125 mcg (5,000 1 cap PO DAILY SUPPLEMENT 05/26/25 06/08/25 History unit)-vitamin K2 100 mcg capsule carbamazepine 200 mg tablet 300 mg (1.5 x 200 mg) PO BID 05/31/25 06/08/25 Rx BIPOLAR 30 days #90 tabs Have you fallen in the past year?: Yes PFSH Medical History (Updated 06/08/25 @ 15:43 by Karen Henry RN) Lumbar stenosis with neurogenic claudication Obesity (BMI 30-39.9) Loss of hearing Wears glasses Post-menopausal Marijuana use Thyroid disease Ambulates with cane Walker as ambulation aid High cholesterol Back pain TIA (transient ischemic attack) Syncope Dietary restriction Vapes nicotine containing substance Former smoker CPAP (continuous positive airway pressure) dependence History of pain when walking History of echocardiogram Lumbar stenosis Cervical radiculopathy PTSD (post-traumatic stress disorder) Bipolar 1 disorder Vitamin D deficiency Neuropathy Hypertension Diabetes type 2, controlled Chronic bronchitis Arthritis Surgical History Hx of colonoscopy Hx of dilation and curettage Hx of decompressive lumbar laminectomy History of lumbar fusion Family History Other Alcoholism Anxiety Arthritis defect Breast cancer CVA (cerebral vascular accident) Cancer Depression Diabetes Hypertension Mental disorder Myocardial infarction Suicide attempt Social History Smoking Status: Former smoker Smokeless tobacco user: other alcohol intake: current alcohol intake frequency: other details: Marc 3-4 a year substance use type: does not use HPI lumbar spine Details: This documentation accurately reflects the service provided and the decisions made by me, Dr. Yair Benedict MD 06/08/25 3077. Part of today?s visit was documented by Maliha Mckeon MA, acting as scribe. REINIER EWING is a 55 year old F here today for lumbar spine pre op. She is scheduled for L2-4 anterior and posterior fusion, revision posterior instrumentation from L2-S1, removal of previous hardware on 06-12-25. Patient states that her pain is a 5 today. She had a fall about 3 weeks ago. Patient states that she is okay. The patient is a 55-year-old female presenting with concerns related to hyponatremia and its impact on her upcoming spinal surgery. Hyponatremia has been persistent, with recent sodium levels recorded between 128 and 130 mmol/L, which is below the normal range of 135 to 145 mmol/L. The patient attributes the low sodium levels to excessive water intake and possibly her psychiatric medication, Tegretol, although her psychiatrist disagrees with this assessment. The patient has a history of bipolar disorder, for which she has been on mood stabilizers for the past 20 years. She experienced a manic episode when her medication dose was reduced, necessitating a return to her previous dosage. Her psychiatrist has advised against altering her current medication regimen due to the risk of exacerbating her psychiatric symptoms. The patient also has a history of diabetes mellitus, with a recent HbA1c of 6.3%. She is aware of the need to maintain strict glycemic control to minimize surgical risks. Nicotine use is another concern, as the patient vapes approximately one pod per day. She acknowledges the negative impact of nicotine on healing and plans to reduce her usage. The patient has a history of spinal stenosis and is scheduled for a revision spinal surgery involving levels L3-3 and L3-4. She previously underwent surgery from L4 to S1 and is concerned about the stability of the existing hardware and the potential need for additional fixation points. A CT scan has been ordered to assess bone growth over the previous screws, which will aid in surgical planning. - Neurological: Reports manic episodes when medication dose is reduced. Denies other neurological symptoms. - Endocrine: Reports diabetes mellitus with HbA1c of 6.3%. - Psychiatric: Reports stable mood with current medication regimen. Denies depressive symptoms. - Musculoskeletal: Reports spinal stenosis and previous spinal surgery. Attestation: Documentation on this patient encounter was supported using ambient scribe technology/ voice AI technology. The patient consented to recording for the purpose of documenting the encounter. Provider reviewed content of the generated note prior to signature. 03/23/25: REINIER EWING is a 55 year old F here today for lumbar spine and cervical spine MRI review. Patient states that her pain is an 8 today. She would like to go over the MRI results to discuss what the next step would be. Her last Epidural was about 2-[address] Tolentino. The epidural injection lasted 3 weeks for her. She states that her pain decreased down to a 2 when she got the injection. Patient states that she has done physical therapy in the past for her back. She states that the physical therapy made the pain worse. Patient is currently doing massage therapy at home for about a week. The massage therapy is helping decrease the numbness in the right leg, but the numbness is still there. She reports weakness in her legs the right leg is worse than the left. She does have sleep apnea and uses a CPAP at night. She does have hypertension. She does not take a blood thinner. Ortho Exam General General: Yes no acute distress Neurologic: Yes alert and Yes oriented x3 Psychologic: Yes reasonable and appropriate Spine SPINE TESTING CERVICAL THORACIC LUMBAR Musculoskeletal Strength 0=absent - 5=normal Details: Examination of the lower back shows midline incisional scar. There is midline and paraspinal tenderness to lower lumbar spine. Neurologic evaluation of lower extremity shows 5 x 5 power,, except right ankle dorsiflexion which is grade 4, normal sensations in all dermatomes. Passive straight leg raise test is negative. Upper extremity shows 5 of 5 strength. Fabiano's negative. Romberg's is positive. Gait shows imbalance. Exam Narrative - Musculoskeletal: Examination of the back revealed pain upon palpation and visible scar from previous surgery. - Neurological: Weakness in right foot ankle dorsiflexion noted. - Neurological: Strength testing of upper extremities was performed, including elbow flexion and extension, and hand vp strategic planning strength. Coding Level of Care Code Off vis,est,level 4 Diagnoses Cervical radiculopathy M54.12 Lumbar radiculopathy M54.16 Fusion of lumbar spine M43.26 Spondylolisthesis, lumbar region M43.16 Other intervertebral disc degeneration, lumbar region M51.36 Spinal stenosis of lumbar region with neurogenic claudication M48.062 Neurogenic claudication status: with neurogenic claudication Obesity (BMI 30-39.9) E66.9 Time Spent (min) 35 Assessment and Plan Assessment and Plan (1) Cervical radiculopathy: Status: Acute (2) Lumbar radiculopathy: Status: Acute (3) Fusion of lumbar spine: Status: Acute (4) Spondylolisthesis, lumbar region: Status: Acute (5) Other intervertebral disc degeneration, lumbar region: Status: Acute (6) Lumbar stenosis: Status: Acute Qualifiers: Neurogenic claudication status: with neurogenic claudication Qualified Code(s): M48.062 - Spinal stenosis, lumbar region with neurogenic claudication (7) Obesity (BMI 30-39.9): Status: Acute Orders: Orders Spine Lumbar without Contrast 06/08/25 M48.062 - Spinal stenosis, lumbar region with neurogenic claudication, Z98.1 - Arthrodesis status Plan Again reviewed pt's cervical and lumbar MRI's in detail with patient. Cervical spine shows multilevel cervical disc degeneration without significant cord compression. Multilevel foraminal stenosis noticed. Lumbar spine shows prior L4-S1 fusion with degenerative changes at L2-3 and L3-4 causing severe stenosis. L3-4 shows spondylolisthesis with mild dynamic instability and x-rays done previously. Severe epidural lipomatosis seen. 1. Hyponatremia - The patient's sodium levels are currently below the normal range, which may impact surgical clearance. - The primary care physician and anesthesiologist will review lab results to determine surgical eligibility. 2. Bipolar Disorder - The patient is stable on her current dose of Tegretol, and any changes to her psychiatric medication are not advised due to the risk of manic episodes. 3. Diabetes Mellitus - The patient is advised to maintain strict glycemic control to minimize surgical risks. - Her HbA1c is currently 6.3%. 4. Nicotine Use Disorder - The patient is encouraged to reduce nicotine use to improve surgical outcomes and healing. 5. Spinal Stenosis - The patient is scheduled for revision spinal surgery at levels L3-3 and L3-4. - A CT scan will assess bone growth over previous hardware to aid in surgical planning. - Monitor sodium levels and follow up with primary care physician and anesthesiologist for surgical clearance. - Maintain current psychiatric medication regimen to prevent manic episodes. - Keep diabetes under control with a target HbA1c of 6.3% or lower. - Reduce nicotine use to aid in surgical recovery and healing. - Prepare for upcoming spinal surgery and complete any pre-operative imaging as instructed. Regarding the neck I recommend PT and pain management. The MRI does not show significant pressure on the spinal cord of the cervical spine. There is no surgical intervention at this time regarding the cervical spine. Regarding the lumbar spine, it does show stenosis above her previous fusion at L2-L3 and L3-L4. We discussed options for this including surgical and non surgical. Non surgical would include PT and continuing with pain management. Surgery would be a lumbar fusion extending the fusion to up to L2-4, with revision of posterior instrumented fusion from L2-S1 or a shorter construct depending on difficulty with removing previous hardware. Possibility of doing his stand-alone anterior procedure was also discussed. Discussed this procedure in detail and explained the risks, benefits and alternatives. The risks of surgery include but are not limited to infection, bleeding, injury to nerves or vessels, need for further surgery, ileus, vascular injury, visceral injury, DVT, pulmonary embolism, pneumonia, atelectasis, cardiopulmonary event, pseudoarthrosis, hardware failure, gait abnormality, adjacent segment degeneration. Discussed post-surgery restrictions in detail such as no bending, lifting, or twisting. Answered all questions to the patient?s satisfaction. Patient understands and agrees to proceed with surgery. Consent was signed.Follow up 2 weeks post operatively or sooner if pain, swelling, numbness or associated symptoms, or concerns develop. All questions answered. Patient in agreement of plan.
[2025-06-12] MEDS: Midazolam 2 MG/2 ML Syringe IV (08:03)
[2025-06-12] MEDS: Lidocaine 1% (5 ml sdv) 5 ML Vial IV (08:07)
[2025-06-12] MEDS: Cefazolin 1 GM/5 ML Vial 2 GM IV (08:16)
[2025-06-12] MEDS: PROPOFOL 21.94 MG IV (11:23)
[2025-06-12] MEDS: TRANEXAMIC ACID 1,000 MG/10 ML ML 2000 MG IV (11:24)
--- NOTE | 2025-06-12 12:10 | OP.PCM_ITS ---
Procedures Musculoskeletal
--- NOTE | 2025-06-12 12:10 | PCM.OPRPT ---
Procedures Musculoskeletal [id number]: Other Procedure See Report Operative Report (Standard) Operative Information Date of Procedure: 06/12/25 Pre-Operative Diagnosis: L3-4 spondylolisthesis L2-4 disc degeneration, stenosis with neurogenic claudication, prior L4-S1 fusion Post-Operative Diagnosis: Same Surgery/Procedure Performed: L2-4 oblique lumbar interbody fusion, anterior instrumentation dry cell sealer: Yes Director Of Development And Marketing: Maria Luisa Taylor Tasks completed by list of first job ideas: Closing, Removing tissue, Implanting device, Hemostasis: Electrocautery and Retracting Type of Anesthesia: General RN Documented Start/Stop Times: Operation Date: 06/12/25 07:30 Case Time Into Pre-Op 06/12/25 05:40 Out of Pre-Op 06/12/25 07:51 Anesthesia Start 06/12/25 07:58 Into Room 06/12/25 07:58 Procedure Start 06/12/25 08:44 Procedure End 06/12/25 11:58 Anesthesia End 06/12/25 12:05 Out of Room 06/12/25 12:05 Procedure Start Time: 08:44 Procedure Stop Time: 11:58 Select all DRAINS/GRAFTS/IMPLANTS that apply: Graft Graft details: Allograft cancellous chips, autologous bone marrow aspirate from left iliac crest and Implanted device Implanted device details: DePuy cougar lateral lumbar interbody cage?peek, 4 web 2 hole plate x 2 Estimated Blood Loss: 50 cc Specimen collected: No Description of surgery: Preoperative diagnosis: L3-4 spondylolisthesis, L2-4 disc degeneration, stenosis with neurogenic claudication, prior L4-S1 fusion Postoperative diagnosis: Same Name of procedures L2-4 oblique lumbar interbody fusion (OLIF), anterior instrumentation, minimally invasive left sided approach, lateral decubitus: ? L2-3 anterolateral spinal fusion 80066 ? L3-4 anterolateral fusion 35676/51 ? L2-3 insertion of cage 55301 ? L3-4 insertion of cage 06645/51 . L2-3 anterior instrumentation 83707 . L3-4 anterior instrumentation 55308/51 ? Bone graft aspirate left iliac crest separate incision ? Allograft cancellous chips Attending Surgeon: Dr. Yair Benedict Estimated blood loss: 50 mL Anesthesia: General Complications: None Indications: Patient is a 55-year-old pleasant lady who has had a long history of low back pain and right worse than left lower extremity radiation, difficulty walking distances, baseline right partial foot drop. Xrays & MRI revealed L2-4 disc degeneration with stenosis, L3-4 spondylolisthesis, prior L4-S1 fusion. CT confirmed adequate fusion L4-S1. After undergoing a prolonged period of nonoperative treatment, the patient elected to undergo surgical decompression & fusion. All surgical options were discussed with the patient including anterior and posterior approaches. Due to a very old posterior system, decision was made to perform an anterior stand-alone fusion with indirect decompression. All risks and benefits associated with the procedure were explained to the patient. The risks include but are not limited to infection, bleeding, injury to nerves and vessels including major vessels like IVC and aorta, persistent paresthesia, persistent pain, dural tear, need for further procedures, adjacent segment degeneration, pseudoarthrosis, hardware failure, retrograde ejaculation, paralytic ileus, etc. Procedure: The patient was identified in the preoperative holding suite using Unique patient identifiers. Skin was marked, consent was reviewed, and all questions were answered. The patient was then brought back to the operative room. A surgical timeout was performed to make sure correct procedure was being done on the correct patient and all operative room staff were on the same page. General endotracheal anesthesia was then given to the patient. Servin catheter was inserted. The patient was then carefully positioned in right lateral decubitus position with the left side up on a regular OR table. Axillary roll was placed and all bony prominences were well- padded. Hip positioners were placed in the posterior buttocks and anterior sternal area. The surgical area was prepped and draped in usual fashion. Preoperative antibiotic was injected IV as preoperative antibiotic. A final timeout was then again done just before starting the procedure. A 2 inch incision oblique was taken in the left lower quadrant of the abdomen 2 fingerbreadths away from the iliac crest and the lower ribs. Sharp dissection with Bovie was carried out up to the fascia covering the external oblique. The external oblique, internal oblique and transversus abdominis muscles were split along the muscle fibers and retroperitoneal space was entered. Sponge sticks were utilized to move the bowel and peritoneum fix-hi-yar-way and psoas muscle was exposed staying within the retroperitoneal plane. P[employer]R Labpak retractor system was positioned and the retractor blade was applied onto the psoas. The interval between psoas and midline structures was developed and appropriate retractors were placed. Once adequate interval was cleared, a disc space was identified and a marker x-ray was taken. This identified the L3-4 disc level. The prepsoas interval was then traced superiorly to expose the L2-3 disc. Annulotomy was done with a long handled knife. Pituitary was used to remove disc material. Curettes were used to prepare the endplates. Disc space spreaders were utilized to distract and increase the disc height. Near complete discectomy was performed. Trials of serially increasing sizes were used. A Jamshidi needle was used to aspirate bone marrow from the left anterior iliac crest through a separate incision and this aspirate was mixed with the allograft bone chips. A Depuy [place] cage of size of the 18 x 50 x 10 mm with 15 degrees lordosis was packed with corticocancellous allograft bone chips mixed with bone marrow aspirate. This was inserted into the L3-4 disc space. The retractors were then repositioned to expose the L2-3 disc and the procedure was repeated with complete discectomy and endplate preparation. Smaller disc distractors were also used to bluntly perform a contralateral annulotomy at both levels. Cage size was 18 x 50 x 10 mm at L2-3. AP and lateral C-arm pictures were taken to confirm good position of the cage. Some bone chips were also packed around the cages. To provide the best fixation, decision was made to perform an anterior instrumentation at both levels. A 4 web 2 hole plate was placed over L3-4 with 2 screws going to L3 and L4 bodies under C-arm AP control to make sure adequate fixation was achieved. Screw sizes were 5.5 by 45 mm at L3 and L4. L4 screw was placed in a way to miss the L4 pedicle screw going inferior to the pedicle screw. A similar 2 hole plate was also applied over the L2-3. Both plates were separate from the cage. Screw through the L2-3 plate was 5.5 by 45 mm at L2 and 6.5 x 35 mm at L3. Both AP and lateral C-arm pictures showed adequate positioning of the anterior instrumentation. Hemostasis was confirmed. The retractor blades were removed. Closure was done in layers with a continuous strand of # 1 Vicryl in all muscle layers. 2-0 Vicryl was used for subcutaneous tissue and 4-0 for Monocryl for the skin. Steri-Strips were applied and 4 x 4 gauze and Tegaderm were applied. Clinical Documentation Manager Maria Luisa Taylor PA-C. My physician assistant superintendent was a vital part of this case. They were important in appropriate retraction during the case, and protection of soft tissues during the procedure. Their intimate knowledge of the case and my steps aided in safe and expedient completion of the procedure as well as appropriate position of the patient during the surgery. They were also vital in assisting with closure under my direct supervision. Surgical Findings: See operative note Complications Complications: No
--- NOTE | 2025-06-12 12:15 | POSTOP.ANE_ITS ---
Anesthesia: Postop Eval I
--- NOTE | 2025-06-12 12:15 | PCM.POST.ANE ---
Anesthesia: Postop Eval I Current Vital Signs Temperature: 97.3 F Pulse Rate: 78 Blood Pressure: 137/81 Respiratory Rate: 16 Pulse Ox: 96 Assessment Airway patent: Yes Spontaneous unlabored respirations: Yes nausea: No Vomiting: No Anesthesia Complication: No Fluid Hydration Crystalloid volume administer (ml): 1,700 Total IV fluid infused: 1,700 Progress Note Anesthesia document: Postop Eval 1 completed: Yes
--- NOTE | 2025-06-12 12:56 | POSTOPAN2_ITS ---
Anesthesia Postop Eval I Sum
--- NOTE | 2025-06-12 12:56 | PCM.POSTANE2 ---
Anesthesia Postop Eval I Sum Postop Eval Completion status Anesthesia document: Postop Eval 1 completed: Yes Anesthesia Postop Eval I Summary Anesthesia Postop Eval I Summary: Anesthesia Postop Eval I: Assessment Summary Airway patent Yes 06/12/25 12:15 DIESEL [email or web address] Spontaneous unlabored Yes 06/12/25 12:15 DIESEL BUS [email or web address] respirations Mental status nausea No 06/12/25 12:15 DIESEL [email or web address] Vomiting No 06/12/25 12:15 DIESEL [email or web address] Anesthesia Postop Eval I: Fluid Summary Crystalloid volume administer 1,700 06/12/25 12:15 DIESEL [email or web address] (ml) Colloids volume administered ( ml) Blood Product volume administered (ml) Total IV fluid infused 1,700 06/12/25 12:15 DIESEL [email or web address] Anesthesia Postop Eval I: Summary Notes Anesthesia Complication No 06/12/25 12:15 DIESEL [email or web address] Anesthesia Complication Comment: Post-operative progress note Anesthesia: Postop Eval II Evaluation Mental status: Awake Pain Level: 2 nausea: No Vomiting: No
--- NOTE | 2025-06-12 13:47 | SUR.PHASEII ---
PATIENT ATTEMPTED TO GET UP TO THE BSC BECAUSE SHE FELT LIKE SHE HAD TO VOID. SHE IS MOVING WELL, BUT WAS NOT ABLE TO VOID AT THIS TIME.
--- NOTE | 2025-06-12 15:59 | SUR.PHASEII ---
DR. ARAGON WAS MADE AWARE OF PATIENT C/O NUMB TONGUE. HE SAID PATIENT WAS A HARD INTUBATION AND THIS NUMBNESS WAS FROM THIS.
[2025-06-12] MEDS: Cefazolin 2 GM in 0.9% Normal Saline (100mL Bag) 100 ML IV (16:04)
--- NOTE | 2025-06-12 18:10 | SUR.PHASEII ---
DR. ARAGON WAS CALLED ABOUT PATIENT'S TONGUE AGAIN. SHE IS CONCERNED ABOUT IT AND WAS NOT GETTING HER QUESTIONS ANSWERED AND THIS NURSE WAS NOT ABLE TO ANSWER THEM. HE SAID TO CALL BERHANE RYAN AND HAVE HIM COME DOWN AND TALK TO HER. BERHANE RYAN CAME DOWN AND SPOKE TO THE PATIENT TO TRY AND REASSURE HER THAT IT SHOULD GET BETTER IN 2-[address] ARAGON.
--- NOTE | 2025-06-12 18:42 | POSTOPAN2_ITS ---
Anesthesia Postop Eval I Sum
--- NOTE | 2025-06-12 18:42 | PCM.POSTANE2 ---
Anesthesia Postop Eval I Sum Postop Eval Completion status Anesthesia document: Postop Eval 1 completed: Yes Anesthesia Postop Eval I Summary Anesthesia Postop Eval I Summary: Anesthesia Postop Eval I: Assessment Summary Airway patent Yes 06/12/25 12:15 SENIOR [email or web address] Spontaneous unlabored Yes 06/12/25 12:15 SENIOR STATISTICAL [email or web address] respirations Mental status Awake 06/12/25 12:56 nausea No 06/12/25 12:56 Vomiting No 06/12/25 12:56 Anesthesia Postop Eval I: Fluid Summary Crystalloid volume administer 1,700 06/12/25 12:15 SENIOR [email or web address] (ml) Colloids volume administered ( ml) Blood Product volume administered (ml) Total IV fluid infused 1,700 06/12/25 12:15 SENIOR [email or web address] Anesthesia Postop Eval I: Summary Notes Anesthesia Complication No 06/12/25 12:15 SENIOR [email or web address] Anesthesia Complication Comment: Post-operative progress note Anesthesia: Postop Eval II Evaluation Mental status: Awake and Calm Pain Level: 0 nausea: No Vomiting: No Progress Note Post-operative progress note: talked to pt regarding some tongue numbness she is c/o. gross motor intact, anterior portion of tongue numb per pt. observed patient talk and drink liquids without difficulty, reassured pt and will continue to monitor as needed. Complications Anesthesia Complication: No
--- NOTE | 2025-06-12 19:21 | PCM.CONS.GEN ---
Assessment & Plan Assessment/Plan (1) Lumbar stenosis with neurogenic claudication: PLAN: Plan Patient is a 55-year-old female who presented to [facility] on 06/12/2025 for planned lumbar fusion procedure. Medicine consulted postoperatively for medical management. 1. Lumbar stenosis with neurogenic claudication, history of L4-S1 fusion ? Orthopedic surgery primary. S/p L2-4 oblique lumbar interbody fusion procedure with Dr. Benedict on 06/12. Tolerated procedure well, no intraoperative complications noted. Postoperative pain control, DVT prophylaxis and further management per orthopedics. Follow-up a.m. labs. PT/OT/case management consulted. 2. Hypertension ? Mildly hypertensive to the 130s to 140s systolic postoperatively. Okay to resume home Coreg, nifedipine, and valsartan. 3. Type 2 diabetes mellitus ? A1c 6.4% on 06/01. Previous A1c's this year were between 7 to 8%. Blood glucose elevated to the 190s postoperatively presumed secondary to stress date. Patient preferred to hold off on POC glucose checks and sliding scale insulin while inpatient if possible as she notes her diabetes has been well-controlled with dietary changes recently. Will continue home metformin but hold home pioglitazone. Follow-up glucose on a.m. BMP tomorrow. Can order POC glucose checks and sliding scale insulin if needed. 4. Bipolar 1 disorder with insomnia ? Stable. Continue home aripiprazole, bupropion, carbamazepine, venlafaxine and melatonin at night. 5. Recent history of hyponatremia ? Sodium 128, chloride 95 on preoperative labs on 06/01. No labs prior to that available. Follow-up a.m. BMP tomorrow. 6. Class II obesity ? BMI 37 on admit. Complicates hospital course and care. DVT prophylaxis: Per orthopedics Total clinical time spent by myself addressing the patient's medical issues, reviewing all the data, and collaborating with patient's care team: 39 minutes. HPI Consult Data Date of Consult: 06/12/25 HPI Narrative Reason for Consultation: Postoperative medical management HPI Narrative: REINIER EWING, is a 55 F who presented to [facility] on 06/12/2025 for planned orthopedic procedure. Medicine consulted postoperatively for medical management. Patient had lumbar interbody fusion procedure done with Dr. Benedict today. Tolerated procedure well, no intraoperative complications noted. I saw the patient at bedside this evening. Patient was laying on her side in bed and appeared to be mildly uncomfortable. She noted moderate low back pain currently but stated she just been given a dose of pain medication for this and was hopeful it would kick in soon. She denied any other acute concerns currently. [facility] Medical History Lumbar stenosis with neurogenic claudication Obesity (BMI 30-39.9) Loss of hearing Wears glasses Post-menopausal Marijuana use Thyroid disease Ambulates with cane Walker as ambulation aid High cholesterol Back pain TIA (transient ischemic attack) Syncope Dietary restriction Vapes nicotine containing substance Former smoker CPAP (continuous positive airway pressure) dependence History of pain when walking History of echocardiogram Lumbar stenosis Cervical radiculopathy PTSD (post-traumatic stress disorder) Bipolar 1 disorder Vitamin D deficiency Neuropathy Hypertension Diabetes type 2, controlled Chronic bronchitis Arthritis Home Medications ?Medication ?Instructions ?Recorded ?Last Taken ?Type carvedilol 6.25 mg tablet 12.5 mg PO BID HEART 09/22/22 06/12/25 History multivitamin 1 tab PO DAILY SUPPLEMENT 09/22/22 06/10/25 History aspirin 81 mg tablet 81 mg PO DAILY HEART HEALTH 11/20/23 06/10/25 History magnesium 250 mg tablet 500 mg PO QHS CRAMPS 11/20/23 06/10/25 History nifedipine 30 mg tablet,extended 90 mg PO DAILY BP 11/20/23 06/12/25 History release turmeric root extract 500 mg 1,000 mg PO BID SUPPLEMENT 11/20/23 06/10/25 History capsule metformin 500 mg tablet,extended 1,000 mg PO BID DIABETES 12/17/23 06/11/25 History release 24 hr melatonin 3 mg capsule 5 mg PO HS PRN sleep 01/05/25 06/10/25 History bupropion HCl 300 mg 24 hr tablet, 300 mg PO QAM PTSD 30 days #30 tabs 05/23/25 06/11/25 Rx extended release venlafaxine 150 mg 150 mg PO DAILY BIPOLAR 30 days 05/23/25 06/12/25 Rx capsule,extended release 24 hr #30 caps INNO CLEANSE 2 cap PO DAILY FIBER 05/26/25 Unknown History aripiprazole 15 mg tablet 15 mg PO QHS BIPOLAR 05/26/25 06/11/25 History omega 4-zsj-evs-fish oil 1,200 mg 2 cap PO DAILY SUPPLEMENT 05/26/25 06/10/25 History (144 mg-216 mg) capsule (Fish Oil) pioglitazone 30 mg tablet 30 mg PO QHS DIABETES 05/26/25 06/11/25 History vitamin D3 125 mcg (5,000 1 cap PO DAILY SUPPLEMENT 05/26/25 06/10/25 History unit)-vitamin K2 100 mcg capsule carbamazepine 200 mg tablet 300 mg (1.5 x 200 mg) PO BID 05/31/25 06/12/25 Rx BIPOLAR 30 days #90 tabs meloxicam 7.5 mg tablet 7.5 mg PO DAILY 06/12/25 06/11/25 History valsartan 40 mg tablet (Diovan) 160 mg PO DAILY 06/12/25 06/12/25 History Allergy/AdvReac Type Severity Reaction Status Date / Time azithromycin Allergy Mild Hives Verified 06/12/25 06:01 Sulfa (Sulfonamide Allergy Mild Other Verified 06/12/25 06:01 Antibiotics) Family History Other Alcoholism Anxiety Arthritis defect Breast cancer CVA (cerebral vascular accident) Cancer Depression Diabetes Hypertension Mental disorder Myocardial infarction Suicide attempt Surgical History Hx of colonoscopy Hx of dilation and curettage Hx of decompressive lumbar laminectomy History of lumbar fusion Social History Smoking Status: Former smoker Smokeless tobacco user: other alcohol intake: current alcohol intake frequency: other details: Rarley 3-4 a year substance use type: does not use ROS Constitutional Constitutional: Denies chills, fatigue or fever(s) Cardiovascular Cardiovascular: Denies chest pain Respiratory/Chest Respiratory/Chest: Denies shortness of breath at rest Gastrointestinal Gastrointestinal: Denies abdominal pain Musculoskeletal Musculoskeletal: Reports back pain Neurologic Neurologic: Denies dizziness, focal weakness, numbness or tingling Physical Exam Const alert and oriented x3 Constitutional Narrative: Middle-age female, class II obesity, laying on her side in bed, mildly uncomfortable appearing due to low back pain, otherwise answering questions appropriately. General Appearance: cooperative HEENT normocephalic, head/scalp atraumatic, hearing grossly normal bilaterally, nasal mucous membranes and turbinates normal and moist oral mucous membranes Eyes PERRL, EOMs intact bilaterally and conjunctivae normal Neck full ROM Chest inspection of chest normal Resp normal respiratory effort, normal air movement, no use of accessory muscles and clear to auscultation bilaterally Cardio regular rate, regular rhythm, no murmurs and peripheral pulses 2+ throughout GI normal to inspection, nondistended, normoactive bowel sounds, soft to palpation, non-tender and non-distended Back/Spine Back/Spine Narrative: Surgical dressing in place. Extremity normal to inspection, full ROM and no pedal edema Skin no rashes or lesions noted Psych mental status grossly normal Lab / Micro Data 06/01/25 14:22 06/01/25 14:22 Labs: Laboratory Results - last 24 hr 06/12/25 06:30: POC Glucose 151 H 06/12/25 12:13: POC Glucose 231 H Charges/Coding Visit Charges Inpatient E&M: 46716 Subs Hosp L2
[2025-06-12] MEDS: metFORMIN (XR) 500 MG Tablet 1000 MG PO (21:59)
[2025-06-12] MEDS: Magnesium Chloride 64 MG Delay Rel.Tablet 128 MG PO (22:00)
[2025-06-12] MEDS: Senna/Docusate Sodium 1 Tablet 2 TABLET PO (22:00)
[2025-06-13] MEDS: Cefazolin 2 GM in 0.9% Normal Saline (100mL Bag) 100 ML IV (00:57)
[2025-06-13 02:39] VITALS: BP 185/76; PULSE 97; RESP 16; TEMP 37.6; O2SAT 96
[2025-06-13 03:00] VITALS: RESP 16
--- NOTE | 2025-06-13 07:00 | RAD_ITS ---
RAD/Lumbar Spine 2 or 3 Views
[2025-06-13] MEDS: NIFEdipine 90 MG Tablet PO (07:40)
[2025-06-13 07:42] LABS: Hematocrit 32.8 % (37-47); Hemoglobin 11.9 g/dL (12.0-15.0); Immature Granulocytes Count 0.060 X10^3/uL (0.0-0.0); Mean Corp Hgb Conc 36.3 g/dL (32-36); Mean Corpuscular Volume 84.3 fL (81-99); Mean Platelet Vol. 8.5 fl (6.2-12.0); NRBC Flagged by Analyzer 0 % (0-5); Platelet Count 255 K/mm3 (150-450); RBC Distribution Width CV 12.0 % (11.6-14.6); RBC Distribution Width SD 36.9 fl (35.1-43.9); Red Blood Count 3.89 M/mm3 (4.2-5.4); White Blood Count 10.2 K/mm3 (4.4-11.0)
[2025-06-13] MEDS: buPROPion (XL) 300 MG TABLET.XL PO (07:42)
[2025-06-13] MEDS: Senna/Docusate Sodium 1 Tablet 2 TABLET PO (07:43)
[2025-06-13] MEDS: metFORMIN (XR) 500 MG Tablet 1000 MG PO (07:44)
[2025-06-13] MEDS: Ensure Surgery 237 ML LIQUID PO ×2 (07:47→11:22)
[2025-06-13 08:12] LABS: Anion Gap 12 (5-15); BUN 11 mg/dL (4-19); BUN/Creat Ratio 18.9 RATIO (10-20); Calcium,Total 8.4 mg/dL (7.6-11.0); Carbon Dioxide 23.2 mmol/L (21.0-32.0); Chloride 88 mmol/L (98-108); Estimated Creatinine Clearance 134.48 ml/min (50-250); Glucose 181 mg/dL (70-99); Potassium 3.6 mmol/L (3.3-5.1)
[2025-06-13 08:32] VITALS: BP 143/70; PULSE 80; RESP 16; TEMP 36.6; O2SAT 98
--- NOTE | 2025-06-13 09:00 | PCM.PN.HOSP ---
Subjective Subjective Passing flatus but no bowel movement yet Objective Data Objective Data Vital Signs: Vital Signs Temp Pulse Resp BP Pulse Ox O2 Del Method O2 Flow Rate 98 F 80 16 143/70 H 98 Room Air 2 06/13/25 08:32 06/13/25 08:32 06/13/25 08:32 06/13/25 08:32 06/13/25 08:32 06/13/25 08:32 06/12/25 13:11 Oxygen Flow Rate (L/min) 2 Oxygen Delivery Method Room Air Weight: 229 lb 15.074 oz Body Mass Index (BMI) 37.0 Intake & Output: Intake and Output for Last 24 Hours 06/12/25 06/13/25 06/14/25 03:59 03:59 03:59 Intake Total 2824 / 2824 380 / 380 Output Total 1000 / 1000 Balance 1824 / 1824 380 / 380 Lab / Micro Data 06/13/25 07:23 06/13/25 07:23 Labs: Laboratory Results - last 24 hr 06/12/25 12:13: POC Glucose 231 H 06/12/25 15:38: POC Glucose 196 H 06/13/25 07:23: WBC 10.2, RBC 3.89 L, Hgb 11.9 L, Hct 32.8 L, MCV 84.3, MCH 30.6, MCHC 36.3 H, RDW Std Deviation 36.9, RDW Coeff of [place] 12.0, Plt Count 255, MPV 8.5, Immature Gran % (Auto) 0.600, Neut % (Auto) 65.9, Lymph % (Auto) 23.5, [place] % (Auto) 9.3, Eos % (Auto) 0.5, Baso % (Auto) 0.2, Absolute Neuts (auto) 6.8, Absolute Lymphs (auto) 2.40, Nucleated RBC % 0, Sodium 123 L, Potassium 3.6, Chloride 88 L, Carbon Dioxide 23.2, Anion Gap 12, BUN 11, Creatinine 0.57 L, Estim Creat Clear Calc 134.48, Est GFR (MDRD) Non-Af 106, BUN/Creatinine Ratio 18.9, Glucose 181 H, Calcium 8.4 Micro: Microbiology 06/01/25 14:22 Swab (Method) Nasal Screen MRSA/MSSA - Final Physical Exam Narrative General: Alert, Oriented x3, Cooperative, No apparent distress HEENT: Atraumatic, PERRLA, EOMI, Normocephalic Oral: Moist Mucosa Neck: Supple, No JVD Lungs: Clear to auscultation, Normal air movement, No rhonchi, No wheeze, No rales Cardiovascular: Regular rate, Regular Rhythm, Normal S1, Normal S2, No murmurs Abdomen: Soft, Non Tender, Non-Distended, No Hepato-splenomegaly Extremities: No edema, Capillary Refill Less than 3 Seconds Skin: No rashes, No breakdown, dressing and wound not visualized Musculoskeletal: No Tenderness to Palpation of Joints or Extremities Neurological: No focal neurological deficits, moves all extremities, sensation intact Psych/Mental Status: Normal Affect, Appropriate Assessment & Plan Assessment/Plan (1) Lumbar stenosis with neurogenic claudication: PLAN: Plan 1. Lumbar stenosis with neurogenic claudication, history of L4-S1 fusion status post L2-4 oblique lumbar interbody fusion on 06/12/2025 ? PT/OT ? Pain management per primary ? Discharge planning per primary ? From a medical standpoint stable for discharge home ? Will sign off please call with questions 2. Essential HTN ? Mildly hypertensive to the 130s to 140s systolic postoperatively ? Resume home Coreg, nifedipine, and valsartan. ? Will monitor make adjustments as necessary ? Renal function is stable 3. DM2 ? A1c between 7 and 8% ? Continue with insulin ? Can resume her home medications on discharge ? Accu-Cheks ? Will monitor and make adjustments as necessary 4. Bipolar 1 disorder with insomnia ? Stable ? Continue home aripiprazole, bupropion, carbamazepine, venlafaxine and melatonin at night. DVT: Per primary Charges/Coding Visit Charges Office Visits / Consults: 44722 OV L3 Est 20min
[2025-06-13 11:28] VITALS: BP 106/57; PULSE 75; RESP 16; TEMP 36.5; O2SAT 98
--- NOTE | 2025-06-13 11:43 | CASEMGMT ---
Noted pt ambulating halls indep. No PT or OT recommended after eval.
--- NOTE | 2025-06-13 11:51 | DCINST_ITS ---
Discharge Instructions
--- NOTE | 2025-06-13 11:51 | PCM.DC ---
Discharge Instructions DC O2, CPAP, BIPAP needs Home O2 Discharge instructions: No Follow Up Care Test Results: Test results from this visit will be discussed in further detail at your follow-up appointment, if applicable. Discharge Plan Admission Admit Date/Time: 06/12/25 12:04 Attending Provider: Yair Benedict Primary Care Provider: Suzanne Arroyo Consulting Providers: Kentrell Galindo Instructions Patient Instructions: Lumbar Fusion Dc Additional Instructions / Restrictions: Keep Tegaderm and gauze clean and dry. If Tegaderm is intact, okay to shower. After 5 days remove Tegaderm and gauze and cover with a Band-Aid. Replace Band-Aid daily thereafter. No bending lifting or twisting. Follow-up in clinic in 2 weeks. Discharge Orders/Prescriptions Prescriptions: New acetaminophen 500 mg Tablet 1,000 mg PO Q6H Qty: 30 0RF meloxicam 15 mg Tablet 15 mg PO DAILY Qty: 30 0RF methocarbamol 500 mg Tablet 750 mg PO TID PRN (Reason: Pain/spasms) Qty: 30 0RF oxycodone 5 mg Tablet 2.5 - 5 mg PO Q6H PRN (Reason: pain) 7 Days Qty: 28 0RF sennosides-docusate sodium [Stimulant Laxative Plus] 8.6-50 mg Tablet 2 tab PO BID PRN (Reason: constipation) Qty: 14 0RF Continued carvedilol 6.25 mg tablet 12.5 mg PO BID multivitamin Tablet 1 tab PO DAILY nifedipine 30 mg tablet extended release 90 mg PO DAILY turmeric root extract 500 mg capsule 1,000 mg PO BID magnesium 250 mg tablet 500 mg PO QHS metformin 500 mg tablet extended release 24 hr 1,000 mg PO BID melatonin 3 mg capsule 5 mg PO HS PRN (Reason: sleep) venlafaxine 150 mg capsule,extended release 24hr 150 mg PO DAILY 30 Days Qty: 30 2RF bupropion HCl 300 mg tablet extended release 24 hr 300 mg PO QAM 30 Days Qty: 30 2RF vitamin D3-vitamin K2 125 mcg (5,000 unit)-100 mcg capsule 1 cap PO DAILY omega 2-bid-jmp-fish oil [Fish Oil] 1,200 (144-216) mg capsule 2 cap PO DAILY INNO CLEANSE 2 cap PO DAILY pioglitazone 30 mg tablet 30 mg PO QHS aripiprazole 15 mg tablet 15 mg PO QHS valsartan [Diovan] 40 mg tablet 160 mg PO DAILY carbamazepine 200 mg tablet 300 mg PO BID 30 Days Qty: 90 2RF Held aspirin 81 mg tablet 81 mg PO DAILY Hold Instructions: Resume on 06/14/25. Discontinued meloxicam 7.5 mg tablet 7.5 mg PO DAILY Referrals / Follow Up: Suzanne Arroyo, FRUIT TRIMMER-C [Primary Care Provider, Family Practice] Disposition Disposition (needs filled in before D/C Order can be placed): Home, Self Care
--- NOTE | 2025-06-13 13:06 | PHA.DC_ITS ---
Pharmacy DC Med Rec Counseling
--- NOTE | 2025-06-13 13:06 | PHA.DC.MC.R ---
Pharmacy [facility] Counseling Pharmacy Service has performed discharge medication reconciliation and counseling for this patient. The patient's discharge medication list was reviewed for discrepancies and discrepancies were resolved. The patient was counseled on the following discharge medications and changes in medications for homegoing were reviewed. The Reason for Use, instructions for use, and potential side effects were reviewed for all new medications. The patient's questions regarding all of their medications were answered. 1. Meloxicam 15 mg PO daily 2. Acetaminophen 1000 mg PO Q6H 3. Methocarbamol 750 mg PO TID PRN 4. Oxycodone 2.5-5 mg PO Q6H PRN pain 5. Senna/docusate 2 tablets PO BID PRN constipation The patient was able to verbally demonstrate an understanding of their discharge medications. Medications at Discharge Home Medications carvedilol 6.25 mg tablet 12.5 mg PO BID HEART 09/22/22 multivitamin 1 tab PO DAILY SUPPLEMENT 09/22/22 aspirin 81 mg tablet 81 mg PO DAILY [facility] 11/20/23 Held on 06/13/25. Instructions: Resume on 06/14/25. magnesium 250 mg tablet 500 mg PO QHS CRAMPS 11/20/23 nifedipine 30 mg tablet,extended release 90 mg PO DAILY BP 11/20/23 turmeric root extract 500 mg capsule 1,000 mg PO BID SUPPLEMENT 11/20/23 metformin 500 mg tablet,extended release 24 hr 1,000 mg PO BID DIABETES 12/17/23 melatonin 3 mg capsule 5 mg PO HS PRN sleep 01/05/25 bupropion HCl 300 mg 24 hr tablet, extended release 300 mg PO QAM PTSD 30 days #30 tabs 05/23/25 venlafaxine 150 mg capsule,extended release 24 hr 150 mg PO DAILY BIPOLAR 30 days #30 caps 05/23/25 INNO CLEANSE 2 cap PO DAILY FIBER 05/26/25 aripiprazole 15 mg tablet 15 mg PO QHS BIPOLAR 05/26/25 omega 5-rwg-uph-fish oil 1,200 mg (144 mg-216 mg) capsule (Fish Oil) 2 cap PO DAILY SUPPLEMENT 05/26/25 pioglitazone 30 mg tablet 30 mg PO QHS DIABETES 05/26/25 vitamin D3 125 mcg (5,000 unit)-vitamin K2 100 mcg capsule 1 cap PO DAILY SUPPLEMENT 05/26/25 carbamazepine 200 mg tablet 300 mg (1.5 x 200 mg) PO BID BIPOLAR 30 days #90 tabs 05/31/25 valsartan 40 mg tablet (Diovan) 160 mg PO DAILY 06/12/25 acetaminophen 500 mg tablet 1,000 mg (2 x 500 mg) PO Q6H #30 tabs 06/13/25 meloxicam 15 mg tablet 15 mg PO DAILY #30 tabs 06/13/25 methocarbamol 500 mg tablet 750 mg (1.5 x 500 mg) PO TID PRN Pain/spasms #30 tabs 06/13/25 oxycodone 5 mg tablet 2.5 - 5 mg (0.5 - 1 x 5 mg) PO Q6H PRN pain 7 days #28 tabs 06/13/25 sennosides 8.6 mg-docusate sodium 50 mg tablet (Stimulant Laxative Plus) 2 tab PO BID PRN constipation #14 tabs 06/13/25
--- NOTE | 2025-06-13 15:21 | PCM.PN.ORT ---
Subjective Subjective The patient is postop day 1 L2-4 anterior fusion. She is doing relatively well with her pain controlled. The patient has been up to the bathroom. PT/OT has cleared her for home discharge. The patient was seen at the bedside today. When the patient was seen this morning she had passed gas, she will attempt a solid meal at breakfast, she has tolerated this well and is clear for a discharge. Seen with Dr. Benedict. Objective Data Objective Data Vital Signs: Vital Signs Temp Pulse Resp BP Pulse Ox O2 Del Method O2 Flow Rate 97.7 F L 75 16 106/57 L 98 Room Air 2 06/13/25 11:28 06/13/25 11:28 06/13/25 11:28 06/13/25 11:28 06/13/25 11:28 06/13/25 11:06/12/25 13:11 Oxygen Flow Rate (L/min) 2 Oxygen Delivery Method Room Air Weight: 229 lb 15.074 oz Body Mass Index (BMI) 37.0 Intake & Output: Intake and Output for Last 24 Hours 06/11/25 06/12/25 06/13/25 22:59 23:59 23:59 Intake Total 2714 / 2714 940 / 940 Output Total 1000 / 1000 Balance 1714 / 1714 940 / 940 Lab / Micro Data 06/13/25 07:23 06/13/25 07:23 Labs: Laboratory Results - last 24 hr 06/12/25 15:38: POC Glucose 196 H 06/13/25 07:23: WBC 10.2, RBC 3.89 L, Hgb 11.9 L, Hct 32.8 L, MCV 84.3, MCH 30.6, MCHC 36.3 H, RDW Std Deviation 36.9, RDW Coeff of Randell 12.0, Plt Count 255, MPV 8.5, Immature Gran % (Auto) 0.600, Neut % (Auto) 65.9, Lymph % (Auto) 23.5, [place] % (Auto) 9.3, Eos % (Auto) 0.5, Baso % (Auto) 0.2, Absolute Neuts (auto) 6.8, Absolute Lymphs (auto) 2.40, Nucleated RBC % 0, Sodium 123 L, Potassium 3.6, Chloride 88 L, Carbon Dioxide 23.2, Anion Gap 12, BUN 11, Creatinine 0.57 L, Estim Creat Clear Calc 134.48, Est GFR (MDRD) Non-Af 106, BUN/Creatinine Ratio 18.9, Glucose 181 H, Calcium 8.4 06/13/25 11:19: POC Glucose 234 H Micro: Microbiology 06/01/25 14:22 Swab (Method) Nasal Screen MRSA/MSSA - Final Radiography Diagnostic Testing: Radiology Impression Lumbar Spine X-Ray 06/12/25 06:30 IMPRESSION: Fluoroscopic guidance was used intraoperatively. Please refer to the operative note for further details. Reading Location: [facility] Lumbar Spine X-Ray 06/13/25 07:00 IMPRESSION: Postoperative changes as above. Reading Location: [facility] Physical Exam Narrative Neurological examination of the lower extremity showed 5X5 power. Normal sensation across all dermatomes. Physical examination of the belly showed Tegaderm and gauze CDI. Const alert, oriented x3 and no apparent distress Assessment & Plan Assessment/Plan (1) Status post lumbar spinal fusion: PLAN: Plan Postop day 1 L2-4 anterior fusion. Patient's pain has been well-controlled. Obtained reviewed x-rays today which show hardware and bone graft in good position. PT/OT cleared. Patient has passed gas and has tolerated a solid meal. Home meds include oxycodone, acetaminophen, methocarbamol, meloxicam, senna. OARRS reviewed. Educated and reviewed on the use of the incentive spirometer. Educated and reviewed restrictions of no bending, lifting, twisting. She will follow-up in the clinic in 2 weeks. Patient is in agreement to the plan.
--- NOTE | 2025-06-13 16:08 | CHAPLAIN ---
Type of Pastoral Visit _x__ Initial Visit ___ Follow-up Visit ___ On-call Visit ___ General Patient Visit ___ Spiritual Assessment ___ Family Conference ___ Bereavement ___ Rapid Response ___ Code Blue ___ Other (describe below) Pastoral Care Referral From _x__ Patient ___ Family ___ Nurse ___ Physician ___ Dry Cure Worker ___ Automotive Sales Manager ___ Other (describe below) Sacrament/Intervention _x__ Active listening ___ Anointing ___ Scientologist ___ Bereavement ___ Communion _x__ Minnie exploration ___ _x__ Life review _x__ Prayer ___ Reconciliation ___ Sacrament of Sick _x__ Supportive presence ___ Wedding ___ Other (describe below) Pastoral Comments patient is welcoming and describes her surgeries of past and current; pt is having discomfort but really wants to go home 'where I can sleep and be comfortable'; pt has concerns about getting back on her regular medications since she had to quit some before surgery; pt has a synagogue connection and a minnie that is important to her; pt welcomes prayer
== END 2025-06-13 13:43 | disposition home or self-care (01) ==
LOC: SDC 16:56 → MS3 16:56
PROVIDERS: Anesthesiology; Student in an Organized Health Care Education/Training Program; Admitting Provider Orthopaedic Surgery Orthopaedic Surgery of the Spine; Referring Provider Orthopaedic Surgery Orthopaedic Surgery of the Spine; Visit Provider Orthopaedic Surgery Orthopaedic Surgery of the Spine
PROC: (CPT 22558; principal; 2025-06-12 07:00)
DX: M48.062 Spinal stenosis, lumbar region with neurogenic claudication (principal); F31.9 Bipolar disorder, unspecified; J42 Unspecified chronic bronchitis; E11.40 Type 2 diabetes mellitus with diabetic neuropathy, unspecified; M43.16 Spondylolisthesis, lumbar region; I10 Essential (primary) hypertension; M51.16 Intervertebral disc disorders with radiculopathy, lumbar region; E87.1 Hypo-osmolality and hyponatremia; Z79.84 Long term (current) use of oral hypoglycemic drugs; Z98.1 Arthrodesis status; E66.812 Obesity, class 2; F17.290 Nicotine dependence, other tobacco product, uncomplicated; Z68.37 Body mass index [BMI] 37.0-37.9, adult; E78.00 Pure hypercholesterolemia, unspecified; M21.371 Foot drop, right foot; Z79.899 Other long term (current) drug therapy; G47.00 Insomnia, unspecified
CPT/HCPCS: 22558; 22585; 22853 ×2; 20930; 20939; 00670; 22845; 36415; 72100; 76000; 80048; 82962; 83036; 83735; 85025; 86850; 86900; 86901; 87077; 87081; 93005; 94668; 96365; 96366; 96375; 96376; 97162; 97165; 99221; C1713; G0378; J2405

== ENCOUNTER 2025-06-19 11:49 | Inpatient (IN) | payer OTHER, SELFPAY ==
[2025-06-19] VITALS (10 sets, daily range): BP systolic 120–165; BP diastolic 52–93; PULSE 68–85; RESP 16–17; TEMP 36.1–36.9; O2SAT 95–100; BMI 38.8; BMI 37.1
--- NOTE | 2025-06-19 13:23 | MRI_ITS ---
PROCEDURE: MRI SPINE LUMBAR W/WO CONTRAST 06/19/2025 REASON FOR EXAM: BACK PAIN, RECENT SURGERY TECHNIQUE: Procedure Code: [id number] Modality: MR Procedure: SPINE LUMBAR W/WO CONTRAST Multiplanar and multisequence images were obtained without and with intravenous gadolinium-based contrast administration. CONTRAST: Clariscan VOLUME: 20 mL COMPARISON: Lumbar spine MRI 03/16/2025, CT 06/08/2025, radiographs 06/13/2025. FINDINGS: No evidence of acute fracture or subluxation. Postoperative changes of dorsal decompressive laminectomies and instrumented fusion from L4-S1, and more recent interbody and metallic plate and screw fixation along the left aspect of the L2-L4 vertebral segments, with associated metallic susceptibility artifact at these levels. Persistent moderate-advanced spinal canal narrowing at the L2-L3 levels primarily due to prominent epidural fat/lipomatosis, and a broad-based dorsal disc bulge at L2-3, as well as ligamentum flavum/facet hypertrophy. Irregular mild-moderate spinal canal narrowing at L3-4. Crowding and possible impingement of the cauda equina at the L2-3 levels with redundancy, similar from prior exam. Neural foraminal narrowing is mild bilaterally at L2-3, L3-4, L4-5 and L5-S1. There is asymmetric edema and multiple small marginally enhancing fluid collections within the right psoas muscle, concerning for myositis and small intramuscular abscess formations. The largest collections measure up to 15 x 13 mm superiorly, and 12 x 11 mm anteroinferiorly (see chaudhary images). Metallic artifact otherwise limits evaluation of the immediately adjacent paravertebral soft tissues. MRI/Spine Lumbar W/WO Contrast IMPRESSION: Postoperative changes of dorsal decompressive laminectomies and instrumented fu nilda from L4-S1, and recent interbody and metallic plate and screw fixation from L2-L4. New asymmetric edema within the right psoas muscle belly with multiple small pe ripherally enhancing fluid collections compatible with myositis and intramuscular abscess formations. Findings are concerning for postoperative spondylodiscitis at the L2-3 levels. No appreciable abnormal fluid/abscess collection within the spinal can al, although evaluation is somewhat limited due to metallic artifact. Persistent moderate-advanced spinal canal stenosis from L2-L3 with crowding and possible impingement of the cauda equina. This is unchanged from prior exam. Findings communicated via telephone with provider Devon Lee 06/19/2025 at 7 p. m. MAGISTERIAL DISTRICT JUDGE. Reading Location: [id number]
[2025-06-19] MEDS: 0.9% Normal Saline (1000mL) 1,000 ML 999 ML IV (13:33)
[2025-06-19 13:44] LABS: Hematocrit 31.9 % (37-47); Hemoglobin 11.1 g/dL (12.0-15.0); Immature Granulocytes Count 0.060 X10^3/uL (0.0-0.0); Mean Corp Hgb Conc 34.8 g/dL (32-36); Mean Corpuscular Volume 85.3 fL (81-99); Mean Platelet Vol. 8.9 fl (6.2-12.0); NRBC Flagged by Analyzer 0 % (0-5); Platelet Count 340 K/mm3 (150-450); RBC Distribution Width CV 12.0 % (11.6-14.6); RBC Distribution Width SD 37.2 fl (35.1-43.9); Red Blood Count 3.74 M/mm3 (4.2-5.4); White Blood Count 8.6 K/mm3 (4.4-11.0)
[2025-06-19 14:11] LABS: AST(SGOT) 19 U/L (<=31); Alanine Aminotransfer ALT/SGPT 18 U/L (<=34); Albumin, Serum 3.7 g/dL (3.5-5.0); Alkaline Phosphatase 64 U/L (35-104); Anion Gap 13 (5-15); BUN 16 mg/dL (4-19); BUN/Creat Ratio 31.7 RATIO (10-20); Calcium,Total 9.7 mg/dL (7.6-11.0); Carbon Dioxide 23.0 mmol/L (21.0-32.0); Chloride 85 mmol/L (98-108); Estimated Creatinine Clearance 160.41 ml/min (50-250); Globulin 2.9 g/dL (2.2-4.2); Glucose 159 mg/dL (70-99); Potassium 4.4 mmol/L (3.3-5.1)
--- NOTE | 2025-06-19 15:30 | EX.ED.DYSGE1 ---
HPI History of Present Illness Chief Complaint: Back Narrative Narrative: Patient is a 55-year-old female with a past medical history of lumbar stenosis with neurogenic claudication, hypercholesteremia, TIA, CPAP, PTSD, bipolar disorder, hypertension, type 2 diabetes who presents to the emergency department the chief complaint of back pain. States that on Thursday of this past week 06/12/2025 Dr. Wnyn did surgery on her. She states that she bent over the wrong way several days ago and notes that she has had increased pain since then. States that she went to [facility] had a workup including a CT and states that they did some medication adjustments and diagnosed with a UTI and sent her home. States that she ran out of medications again and called Dr. Wynn's office and they advised her to come to the emergency department here to be further evaluated. She states that she is having difficulty taking care of herself at home secondary to the pain and feels that she may need rehab. She states that she is urinating and not soiling herself. [facility] Medical History Lumbar stenosis with neurogenic claudication Obesity (BMI 30-39.9) Loss of hearing Wears glasses Post-menopausal Marijuana use Thyroid disease Ambulates with cane Walker as ambulation aid High cholesterol Back pain TIA (transient ischemic attack) Syncope Dietary restriction Vapes nicotine containing substance Former smoker CPAP (continuous positive airway pressure) dependence History of pain when walking History of echocardiogram Lumbar stenosis Cervical radiculopathy PTSD (post-traumatic stress disorder) Bipolar 1 disorder Vitamin D deficiency Neuropathy Hypertension Diabetes type 2, controlled Chronic bronchitis Arthritis Home Medications Medication Instructions Recorded Last Taken Type multivitamin 1 tab PO DAILY SUPPLEMENT 09/22/22 06/10/25 History aspirin 81 mg tablet 81 mg PO DAILY HEART HEALTH 11/20/23 06/19/25 History magnesium 250 mg tablet 500 mg PO QHS CRAMPS 11/20/23 06/10/25 History turmeric root extract 500 mg 1,000 mg PO BID SUPPLEMENT 11/20/23 06/10/25 History capsule metformin 500 mg tablet,extended 1,000 mg PO BID DIABETES 12/17/23 06/19/25 History release 24 hr bupropion HCl 300 mg 24 hr tablet, 300 mg PO QAM PTSD 30 days #30 tabs 05/23/25 06/19/25 Rx extended release venlafaxine 150 mg 150 mg PO DAILY BIPOLAR 30 days 05/23/25 06/18/25 Rx capsule,extended release 24 hr #30 caps aripiprazole 15 mg tablet 15 mg PO QHS BIPOLAR 05/26/25 06/18/25 History omega 0-kne-zno-fish oil 1,200 mg 2 cap PO DAILY SUPPLEMENT 05/26/25 06/10/25 History (144 mg-216 mg) capsule (Fish Oil) pioglitazone 30 mg tablet 30 mg PO QHS DIABETES 05/26/25 06/18/25 History vitamin D3 125 mcg (5,000 1 cap PO DAILY SUPPLEMENT 05/26/25 06/10/25 History unit)-vitamin K2 100 mcg capsule acetaminophen 500 mg tablet 1,000 mg (2 x 500 mg) PO Q6H #30 06/13/25 06/19/25 Rx tabs meloxicam 15 mg tablet 15 mg PO DAILY #30 tabs 06/13/25 06/18/25 Rx methocarbamol 500 mg tablet 750 mg (1.5 x 500 mg) PO TID PRN 06/13/25 06/19/25 Rx Pain/spasms #30 tabs oxycodone 5 mg tablet 2.5 - 5 mg (0.5 - 1 x 5 mg) PO Q6H 06/13/25 06/19/25 Rx PRN pain 7 days #28 tabs carbamazepine 200 mg tablet 400 mg PO BID BIPOLAR 06/19/25 06/19/25 History carvedilol 12.5 mg tablet 12.5 mg PO BID 06/19/25 06/19/25 History cephalexin 500 mg capsule 500 mg PO 4X/DAY 06/19/25 06/19/25 History ketorolac 10 mg tablet 10 mg PO Q6H PRN PRN pain 06/19/25 06/19/25 History melatonin 5 mg capsule 5 mg PO QHS PRN 06/19/25 06/18/25 History nifedipine 90 mg tablet,extended 90 mg PO DAILY 06/19/25 06/19/25 History release valsartan 160 mg tablet 160 mg PO DAILY 06/19/25 06/19/25 History Allergy/AdvReac Type Severity Reaction Status Date / Time azithromycin Allergy Mild Hives Verified 06/19/25 11:51 Sulfa (Sulfonamide Allergy Mild Other Verified 06/19/25 11:51 Antibiotics) Family History Other Alcoholism Anxiety Arthritis defect Breast cancer CVA (cerebral vascular accident) Cancer Depression Diabetes Hypertension Mental disorder Myocardial infarction Suicide attempt Surgical History Hx of colonoscopy Hx of dilation and curettage Hx of decompressive lumbar laminectomy History of lumbar fusion Social History Smoking Status: Former smoker Smokeless tobacco user: other alcohol intake: current alcohol intake frequency: other details: Rarley 3-4 a year substance use type: does not use ROS ROS ED ROS Narrative Constitutional: Denies any fevers, chills, headaches Eyes: Denies change in vision double vision blurry vision Cardiovascular: Denies chest pain or palpitations Respiratory: Denies coughing wheezing shortness of breath Abdomen: Denies abdominal pain nausea vomit diarrhea : Denies urinary symptoms Neurological: Complains of pain shooting down her right leg to her thigh from her back Musculoskeletal: Complains of back pain that radiates as noted above Skin: Denies any rashes or lesions EXAM Physical Exam Const Vital Signs: 06/19/25 11:49 06/19/25 13:49 06/19/25 15:00 Temperature 96.9 F L Temperature Source Temporal Pulse Rate 77 68 Respiratory Rate 16 17 Blood Pressure 161/92 H 156/67 H 149/67 H Blood Pressure Mean 115 96 94 Pulse Ox 97 Oxygen Delivery Method Room Air MDM MDM MDM Narrative Medical decision making narrative: Patient is a 55-year-old female who presented to the emergency department the chief complaint of back pain. On the differential diagnose includes but limited to herniated disc, hardware failure, infected hardware, chronic back pain. Once workup is obtained and reviewed she will be reevaluated. I did reach out to Dr. Wynn and he states that we can obtain an MRI with and without contrast of her lumbar spine. Patient's CBC was reviewed which showed no evidence leukocytosis white blood count 8.6, hemoglobin 11.1, plate count of 340. Patient sodium is low at 122 however she is chronically hyponatremic, potassium normal 4.4, creatinine normal 0.49. Patient AST and ALT were 19 and 18 respectively. Patient's MRI will not be until 1800 therefore this case will be signed out to oncoming provider to follow-up on these results and call Dr. Wynn back and discussed with him. See addendum for further details. Lab Data Labs: Laboratory Results - last 24 hr 06/19/25 13:30 WBC 8.6 RBC 3.74 L Hgb 11.1 L Hct 31.9 L MCV 85.3 MCH 29.7 MCHC 34.8 RDW Std Deviation 37.2 RDW Coeff of Randell 12.0 Plt Count 340 MPV 8.9 Immature Gran % (Auto) 0.700 Neut % (Auto) 66.3 Lymph % (Auto) 22.1 [place] % (Auto) 8.7 Eos % (Auto) 1.9 Baso % (Auto) 0.3 Absolute Neuts (auto) 5.7 Absolute Lymphs (auto) 1.91 Nucleated RBC % 0 Sodium 122 L Potassium 4.4 Chloride 85 L Carbon Dioxide 23.0 Anion Gap 13 BUN 16 Creatinine 0.49 L Estim Creat Clear Calc 160.41 Est GFR (MDRD) Non-Af 111 BUN/Creatinine Ratio 31.7 H Glucose 159 H Calcium 9.7 Total Bilirubin 0.24 AST 19 ALT 18 Alkaline Phosphatase 64 Total Protein 6.7 Albumin 3.7 Globulin 2.9 Albumin/Globulin Ratio 1.3 Discharge Plan Triage Chief Complaint: Back ED Provider: Luis Antonio Gonzales Dx/Rx/DC Orders Clinical Impression: Back pain, Bipolar 1 disorder, PTSD (post-traumatic stress disorder), Fusion of lumbar spine Prescriptions: No Action multivitamin Tablet 1 tab PO DAILY aspirin 81 mg tablet 81 mg PO DAILY turmeric root extract 500 mg capsule 1,000 mg PO BID magnesium 250 mg tablet 500 mg PO QHS metformin 500 mg tablet extended release 24 hr 1,000 mg PO BID venlafaxine 150 mg capsule,extended release 24hr 150 mg PO DAILY 30 Days Qty: 30 2RF bupropion HCl 300 mg tablet extended release 24 hr 300 mg PO QAM 30 Days Qty: 30 2RF vitamin D3-vitamin K2 125 mcg (5,000 unit)-100 mcg capsule 1 cap PO DAILY omega 7-gvk-slk-fish oil [Fish Oil] 1,200 (144-216) mg capsule 2 cap PO DAILY pioglitazone 30 mg tablet 30 mg PO QHS aripiprazole 15 mg tablet 15 mg PO QHS acetaminophen 500 mg Tablet 1,000 mg PO Q6H Qty: 30 0RF meloxicam 15 mg Tablet 15 mg PO DAILY Qty: 30 0RF methocarbamol 500 mg Tablet 750 mg PO TID PRN (Reason: Pain/spasms) Qty: 30 0RF Patient Comments: finished this morning oxycodone 5 mg Tablet 2.5 - 5 mg PO Q6H PRN (Reason: pain) 7 Days Qty: 28 0RF Patient Comments: took last dose today carvedilol 12.5 mg tablet 12.5 mg PO BID ketorolac 10 mg tablet 10 mg PO Q6H PRN PRN (Reason: pain) Patient Comments: took last dose of medication at 4am cephalexin 500 mg capsule 500 mg PO 4X/DAY Patient Comments: took at 10 am nifedipine 90 mg tablet extended release 90 mg PO DAILY valsartan 160 mg tablet 160 mg PO DAILY melatonin 5 mg capsule 5 mg PO QHS PRN carbamazepine 200 mg tablet 400 mg PO BID Primary Care Provider: Suzanne Arroyo Referrals: Suzanne Arroyo, WOMEN SPECIALIST-C [Primary Care Provider, Family Practice] Print Language: Croatian
--- NOTE | 2025-06-19 18:26 | ED.RN ---
upon arrival back to ER from MRI. Pt. stood and pivoted to commode and back to bed. rating pain a 4/10 which is tolerable. VSS.
--- NOTE | 2025-06-19 21:08 | PCM.HP.STD ---
HPI - General General Date of Admission: 06/19/25 Date of Service: 06/19/25 Chief Complaint: Back pain HPI Narrative REINIER EWING, is a 55 F who presents to the emergency room with chief complaint of back pain. Patient has significant past medical history of lumbar stenosis with neurogenic claudication, hypercholesterolemia TIA, PTSD, bipolar disorder, hypertension, diabetes who is status post laminectomy done by Dr. Wynn on June 12, 2025. Patient states she moved the wrong way several days ago and noticed that she has had increased pain since that time. She went to the [facility] and workup including CT at that time was found to have a UTI and was sent home with antibiotics. Today she continued to have further pain and was sent to the emergency room here by Dr. Wynn's advice patient denies any urinary or fecal incontinence. Patient denies any chest pain, shortness of breath, nausea vomiting or diarrhea. Laboratory studies were show white blood cell count of 8.6, hemoglobin 11.1, hematocrit 31.9, platelets 340, sodium 122, potassium 4.4, chloride 85, bicarb 23, BUN 16, creatinine 0.49, glucose 159, AST 19, ALT 18, albumin 3.7. 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 And continued spinal stenosis of L2-3. Patient was started on vancomycin and Rocephin in the emergency room and given pain medication. Patient will be admitted to the medical surgical floor and Dr. Wynn will be consulted. [facility] Medical History Lumbar stenosis with neurogenic claudication Obesity (BMI 30-39.9) Loss of hearing Wears glasses Post-menopausal Marijuana use Thyroid disease Ambulates with cane Walker as ambulation aid High cholesterol Back pain TIA (transient ischemic attack) Syncope Dietary restriction Vapes nicotine containing substance Former smoker CPAP (continuous positive airway pressure) dependence History of pain when walking History of echocardiogram Lumbar stenosis Cervical radiculopathy PTSD (post-traumatic stress disorder) Bipolar 1 disorder Vitamin D deficiency Neuropathy Hypertension Diabetes type 2, controlled Chronic bronchitis Arthritis Home Medications Medication Instructions Recorded Last Taken Type multivitamin 1 tab PO DAILY SUPPLEMENT 09/22/22 06/10/25 History aspirin 81 mg tablet 81 mg PO DAILY HEART HEALTH 11/20/23 06/19/25 History magnesium 250 mg tablet 500 mg PO QHS CRAMPS 11/20/23 06/10/25 History turmeric root extract 500 mg 1,000 mg PO BID SUPPLEMENT 11/20/23 06/10/25 History capsule metformin 500 mg tablet,extended 1,000 mg PO BID DIABETES 12/17/23 06/19/25 History release 24 hr bupropion HCl 300 mg 24 hr tablet, 300 mg PO QAM PTSD 30 days #30 tabs 05/23/25 06/19/25 Rx extended release venlafaxine 150 mg 150 mg PO DAILY BIPOLAR 30 days 05/23/25 06/18/25 Rx capsule,extended release 24 hr #30 caps aripiprazole 15 mg tablet 15 mg PO QHS BIPOLAR 05/26/25 06/18/25 History omega 6-xbw-mby-fish oil 1,200 mg 2 cap PO DAILY SUPPLEMENT 05/26/25 06/10/25 History (144 mg-216 mg) capsule (Fish Oil) pioglitazone 30 mg tablet 30 mg PO QHS DIABETES 05/26/25 06/18/25 History vitamin D3 125 mcg (5,000 1 cap PO DAILY SUPPLEMENT 05/26/25 06/10/25 History unit)-vitamin K2 100 mcg capsule acetaminophen 500 mg tablet 1,000 mg (2 x 500 mg) PO Q6H #30 06/13/25 06/19/25 Rx tabs meloxicam 15 mg tablet 15 mg PO DAILY #30 tabs 06/13/25 06/18/25 Rx methocarbamol 500 mg tablet 750 mg (1.5 x 500 mg) PO TID PRN 06/13/25 06/19/25 Rx Pain/spasms #30 tabs oxycodone 5 mg tablet 2.5 - 5 mg (0.5 - 1 x 5 mg) PO Q6H 06/13/25 06/19/25 Rx PRN pain 7 days #28 tabs carbamazepine 200 mg tablet 400 mg PO BID BIPOLAR 06/19/25 06/19/25 History carvedilol 12.5 mg tablet 12.5 mg PO BID 06/19/25 06/19/25 History cephalexin 500 mg capsule 500 mg PO 4X/DAY 06/19/25 06/19/25 History ketorolac 10 mg tablet 10 mg PO Q6H PRN PRN pain 06/19/25 06/19/25 History melatonin 5 mg capsule 5 mg PO QHS PRN 06/19/25 06/18/25 History nifedipine 90 mg tablet,extended 90 mg PO DAILY 06/19/25 06/19/25 History release valsartan 160 mg tablet 160 mg PO DAILY 06/19/25 06/19/25 History Allergy/AdvReac Type Severity Reaction Status Date / Time azithromycin Allergy Mild Hives Verified 06/19/25 11:51 Sulfa (Sulfonamide Allergy Mild Other Verified 06/19/25 11:51 Antibiotics) Family History Other Alcoholism Anxiety Arthritis defect Breast cancer CVA (cerebral vascular accident) Cancer Depression Diabetes Hypertension Mental disorder Myocardial infarction Suicide attempt Surgical History Hx of colonoscopy Hx of dilation and curettage Hx of decompressive lumbar laminectomy History of lumbar fusion Social History Smoking Status: Former smoker Smokeless tobacco user: other alcohol intake: current alcohol intake frequency: other details: Rarley 3-4 a year substance use type: does not use ROS Constitutional Constitutional: Denies chills or fever(s) Eyes Eyes: Denies blurry vision ENT HEENT: Denies abnormal hearing Cardiovascular Cardiovascular: Denies chest pain Respiratory/Chest Respiratory/Chest: Denies shortness of breath at rest Gastrointestinal Gastrointestinal: Denies abdominal pain Genitourinary Genitourinary: Denies dysuria Musculoskeletal Musculoskeletal: Reports back pain and limited range of motion; Denies neck pain Integumentary Integumentary: Denies dry skin Neurologic Neurologic: Denies abnormal speech or confusion Psychiatric Psychiatric: Reports anxiety Vital Signs Vital Signs Vital Signs: 06/19/25 11:49 06/19/25 13:49 06/19/25 15:00 Temperature 96.9 F L Temperature Source Temporal Pulse Rate 77 68 Respiratory Rate 16 17 Blood Pressure 161/92 H 156/67 H 149/67 H Blood Pressure Mean 115 96 94 Pulse Ox 97 Oxygen Delivery Method Room Air 06/19/25 18:24 06/19/25 20:00 06/19/25 20:41 Temperature 98.4 F Temperature Source Pulse Rate 68 73 80 Respiratory Rate 16 16 16 Blood Pressure 120/62 143/93 H 128/56 H Blood Pressure Mean 81 109 80 Pulse Ox 100 99 95 Oxygen Delivery Method Room Air 06/19/25 20:42 Temperature 98.4 F Temperature Source Oral Pulse Rate 80 Respiratory Rate 16 Blood Pressure 128/56 H Blood Pressure Mean 80 Pulse Ox 96 Oxygen Delivery Method Room Air Weight Weight: 240 lb 11.916 oz Body Mass Index (BMI) 38.8 Physical Exam Const alert and oriented x3 General Appearance: cooperative and well developed HEENT normocephalic and head/scalp atraumatic Eyes PERRL Neck no lymphadenopathy Lymph Lymphatic: no lymphadenopathy noted Resp normal respiratory effort, normal air movement and clear to auscultation bilaterally Cardio regular rate, regular rhythm, S1 normal heart sound and S2 normal heart sound GI normal to inspection, nondistended, normoactive bowel sounds Extremity normal capillary refill Extremity Narrative: Lumbar back pain present Neuro no focal motor deficits and no sensory deficits noted Speech: speech normal Psych thought process normal, cooperative and affect normal Results Lab / Micro Data 06/19/25 13:30 06/19/25 13:30 Labs: Laboratory Results - last 24 hr 06/19/25 13:30: WBC 8.6, RBC 3.74 L, Hgb 11.1 L, Hct 31.9 L, MCV 85.3, MCH 29.7, MCHC 34.8, RDW Std Deviation 37.2, RDW Coeff of Randell 12.0, Plt Count 340, MPV 8.9, Immature Gran % (Auto) 0.700, Neut % (Auto) 66.3, Lymph % (Auto) 22.1, Orange % (Auto) 8.7, Eos % (Auto) 1.9, Baso % (Auto) 0.3, Absolute Neuts (auto) 5.7, Absolute Lymphs (auto) 1.91, Nucleated RBC % 0, Sodium 122 L, Potassium 4.4, Chloride 85 L, Carbon Dioxide 23.0, Anion Gap 13, BUN 16, Creatinine 0.49 L, Estim Creat Clear Calc 160.41, Est GFR (MDRD) Non-Af 111, BUN/Creatinine Ratio 31.7 H, Glucose 159 H, Calcium 9.7, Total Bilirubin 0.24, AST 19, ALT 18, Alkaline Phosphatase 64, Total Protein 6.7, Albumin 3.7, Globulin 2.9, Albumin/Globulin Ratio 1.3 Imaging Radiology Impression Lumbar Spine MRI 06/19/25 13:23 IMPRESSION: Postoperative changes of dorsal decompressive laminectomies and instrumented fusion from L4-S1, and recent interbody and metallic plate and screw fixation from L2-L4. New asymmetric edema within the right psoas muscle belly with multiple small peripherally enhancing fluid collections compatible with myositis and intramuscular abscess formations. Findings are concerning for postoperative spondylodiscitis at the L2-3 levels. No appreciable abnormal fluid/abscess collection within the spinal canal, although evaluation is somewhat limited due to metallic artifact. Persistent moderate-advanced spinal canal stenosis from L2-L3 with crowding and possible impingement of the cauda equina. This is unchanged from prior exam. Findings communicated via telephone with provider Devon Lee 06/19/2025 at 7 p.m. [employer]. Reading Location: [id number] Assessment & Plan Assessment/Plan (1) Back pain: (2) Status post lumbar spinal fusion: (3) Obesity (BMI 30-39.9): (4) PTSD (post-traumatic stress disorder): (5) Bipolar 1 disorder: PLAN: Plan 1 back pain status post lumbar surgery–MRI indicates possible discitis and right psoas muscle abscess–patient will be started on vancomycin and Rocephin, repeat CBC BMP in the a.m., consult Dr. Benedict. Continue Dilaudid 1 mg IV every 3 hours as needed pain 2. Bipolar disorder/PTSD continue routine psychiatric medication 3. CODE STATUS full verified 4. DVT prophylaxis–low molecular weight heparin Charges/Coding Visit Charges Inpatient E&M: 80852 Init Hosp L2
[2025-06-19] MEDS: Vancomycin HCl 2,000 MG in 0.9% Normal Saline (500mL Bag) 500 ML 250 MG IV (21:28)
--- OUTSIDE RECORDS SUMMARY | 2025-06-19 21:35 | XMS RPT_ITS | CCD ---
Author Organization [facility] Care Team Providers Care Drive Thru Order Taker Name Role Phone ANUSHKA CORDERO Unavailable SUKHDEV, NAYELYOHUA Unavailable SUKHDEV, CHAOHUA Unavailable ANUSHKA CORDERO Unavailable SUKHDEV, CHAOHUA Unavailable SUKHDEV, CHAOHUA Unavailable ANUSHKA CORDERO Unavailable SUKHDEV, CHAOHUA Unavailable SUKHDEV, CHAOHUA Unavailable ANUSHKA CORDREO Unavailable ANUSHKA CORDERO Unavailable SUKHDEV, CHAOHUA Unavailable ANUSHKA CORDERO Unavailable SUKHDEV, CHAOHUA Unavailable ANUSHKA CORDERO Unavailable SUKHDEV, CHAOHUA Unavailable ANUSHKA CORDERO Unavailable SUKHDEV, CHAOHUA Unavailable ANUSHKA CORDERO Unavailable PAOLONE, VINCENT Unavailable PAOLONE, VINCENT Unavailable ANUSHKA CORDERO Unavailable LILLIAM SANTIZO Attending Provider LILLIAM SANTIZO Admitting Physician [phone] ANUSHKA CORDERO Primary Care Provider ANUSHKA CORDERO Primary Care Provider No, Physician Primary Care Provider Unavailabl e MALCOM GARCIA Attending Un available MALCOM GARCIA Admitting Un available NO, PHYSICIAN Primary Care Unavailable James Sahu Unavailable [phone] Unavailable Unavailable Unavailable Unavailable Adelina, Dr. Rizo Primary Care Unavailabl e Jazmín, Dr. Ajit Norman Referring Unavaila ble Jazmín, Dr. Ajit Norman Attending Unavaila ble Jazmín, Dr. Ajit Norman Admitting Unavaila ble Unavailable Unavailable Lilliam Santizo Attending Unavailable Young, Ms. Emilie Kilpatrick Referring Unavailabl e Oberhauser, Dr. James Ervin Primary Care Unava ilable Young, Ms. Emilie Kilpatrick Attending Unavailabl e Young, Ms. Emilie Kilpatrick Referring Unavailabl e Oberhauser, Dr. James Ervin Primary Care Unava ilable Young, Ms. Emilie Kilpatrick Attending Unavailabl e Young, Ms. Emilie Kilpatrick Referring Unavailabl e Oberhauser, Dr. James Ervin Primary Care Unava ilable Young, MsKofi Kilpatrick Attending Unavailabl e Oberhauser, Dr. James Ervin Primary Care Unava ilable Oberhauser, Dr. James Ervin Attending Unava ilable Oberhauser, Dr. James Ervin Referring Unava ilable Oberhauser, Dr. James Ervin Primary Care Unava ilable Oberhauser, Dr. James Ervin Attending Unava ilable Oberhauser, Dr. James Ervin Referring Unava ilable Oberhauser, Dr. James Ervin Attending Unava ilable Oberhauser, Dr. James Ervin Referring Unava ilable Oberhauser, Dr. James Ervin Primary Care Unava ilable Oberhauser, Dr. James Ervin Primary Care Unava ilable Oberhauser, Dr. James Ervin Attending Unava ilable Oberhauser, Dr. James Ervin Referring Unava ilable Oberhauser, Dr. James Ervin Primary Care Unava ilable Young, Dr. Tom Cummings Referring Unavail able Young, Ms. Emilie Kilpatrick Attending Unavailabl e OberhausJames betancourt DO Primary Care Provider Oberhauser DO, Ajmes L Unavailable Oberhauser DO, James L Primary Care Provider Oberhauser DO, James L Unavailable Oberhauser, James L Primary Care Provider Kelsey gutierrez Oberhauser, James L Unavailable Unavailable Young EARLY CHILDHOOD LEAD TEACHER-SYSTEMS SUPPORT ENGINEER, DNP, Emilie M Unavailable Cruz EARLY CHILDHOOD LEAD TEACHER-SYSTEMS SUPPORT ENGINEER, Suzanne B Primary Care Provider OBERHAUSER, JAMES L Primary Care Unavailable CRUZ, SUZANNE B Referring Unavailable CRUZ, SUZANNE B Primary Care Unavailable Young EARLY CHILDHOOD LEAD TEACHER-SYSTEMS SUPPORT ENGINEER, DNP, Emilie M Unavailable Cruz EARLY CHILDHOOD LEAD TEACHER-SYSTEMS SUPPORT ENGINEER, Suzanne B Primary Care Provider LYNN KOCH Attending Unavailable CRUZ, SUZANNE B Primary Care Unavailable CRUZ, SUZANNE B Attending Unavailable CRUZ, SUZANNE B Primary Care Unavailable SARAHY CORNELIUSA M Attending Unavailable OBERHAUSER, JAMES L Primary Care Unavailable CRUZ, SUZANNE B Attending Unavailable OBERHAUSER, JAMES L Primary Care Unavailable CRUZ, SUZANNE B Referring Unavailable Benedict, Yair Admitting Unavailable Cruz, Suzanne Primary Care Unavailable Kentrell Galindo Consulting Unavailable Maria Luisa Taylor Attending Unavailable Benedict, Yair Referring Unavailable Benedict, Yair Consulting Unavailable Demario Reyes Attending Unavailable SeeseDemario Attending Unavailable Cruz, Suzanne Primary Care Unavailable Cruz, Suzanne Referring Unavailable SeeDemario harris Attending Unavailable Kentrell Galindo F Attending Unavailable Benedict, Yair Consulting Unavailable Benedict, Yair Referring Unavailable Benedict, Yair Attending Unavailable Cruz, Suzanne Primary Care Unavailable Olayinka Becker Attending Unavailable Olayinka Becker Consulting Unavailable Prayson, Kentrell Referring Unavailable Prayson, Kentrell Attending Unavailable Cruz, Suzanne Primary Care Unavailable Cruz, Suzanne Primary Care Unavailable Prayson, Kentrell Referring Unavailable Prayson, Kentrell Attending Unavailable Benedict, Yair Referring Unavailable Cruz, Suzanne Primary Care Unavailable Benedict, Yair Attending Unavailable Demario Reyes L Attending Unavailable Seese, Demario L Attending Unavailable Benedict, Yair Referring Unavailable Benedict, Yair Attending Unavailable Cruz, Suzanne Primary Care Unavailable Benedict, Yair Referring Unavailable Benedict, Yair Attending Unavailable Cruz, Suzanne Primary Care Unavailable Benedict, Yair Admitting Unavailable Benedict, Yair Referring Unavailable Kentrell Galindo Consulting Unavailable Cruz, Suzanne Primary Care Unavailable Benedict, Yair Attending Unavailable Benedict, Yair Attending Unavailable Cruz, Suzanne Referring Unavailable Cruz, Suzanne Primary Care Unavailable Matias Serna Attending Unavailable Cruz, Suzanne Primary Care Unavailable Cruz, Suzanne Primary Care Unavailable Cruz, Suzanne Referring Unavailable Benedict, Yair Attending Unavailable Cruz, Suzanne Referring Unavailable SeeseDemario Attending Unavailable Cruz, Suzanne Primary Care Unavailable Cruz, Suzanne Referring Unavailable Benedict, Yair Attending Unavailable Cruz, Suzanne Primary Care Unavailable Demario Reyes Attending Unavailable CRUZ, SUZANNE B Referring Unavailable OBERHAUSER, JAMES L Primary Care Unavailable CRUZ, SUZANNE B Primary Care Unavailable BREN KOWALSKI Attending Unavailable OBERHAUSER, JAMES L Primary Care Unavailable ODELL MOCK Attending Unavailable Allergies Allergy Classification Reported Allergen(s) Allergy Type Date of Onset Reaction(s) Facility (19 sources) Sulfonamides (Antibiotic); 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: [SULFA (SULFONAMIDE ANTIBIOTICS)] Propensity to adverse reactions to drug 5 Unknown [facility] (20 sources) Azithromycin; 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: [azithromycin] Drug Allergy 3 Unknown [facility] (20 sources) Sulfonamides (Antibiotic); 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: [Sulfa Antibiotics] Allergy to drug (finding) [facility] Work Phone: (2 sources) Azithromycin Drug Allergy [facility] ([place] (1 source) valsartan Drug Allergy 8 [facility] (1 source) wool Drug allergy (disorder) 8 [facility] Medications Current Medications Medication Drug Class(es) Dates Sig (Normalized) Sig (Original) acetaminophen 500 mg oral tablet (3 sources) take 2 tablets by mouth every six hours as needed acetaminophen (Tylenol) 500 mg tablet Take 2 tablets (1,000 mg) by mouth every 6 hours if needed for mild pain (1 - 3). Active amoxicillin 875 mg / clavulanate 125 mg oral tablet (2 sources) Penicillin-class Antibacterial Start: 04-25-2024 End: 05-05-2024 take 1 tablet by mouth twice daily amoxicillin-pot clavulanate (Augmentin) 875-125 mg tablet Indications: Chronic mucoid otitis media of both ears Take 1 tablet (875 mg) by mouth 2 times a day for 10 days. 20 tablet 04/25/2024 05/05/2024 Active Start: 09-10-2021 take 1 tablet by jacques th once daily Amoxicillin-Pot Clavulanate 875-125 MG Oral Tablet TAKE 1 TABLET EVERY 12 HOURS DAILY. Quantity: 20 Refills: 0 Ordered: 10-Sep-2021 James Sahu DO Start : 10-Sep-2021 Active ARIPiprazole 15 mg oral tablet (13 sources) Atypical Antipsychotic Start: 08-28-2023 take 0.5 tablet by mouth once daily ARIPiprazole (Abilify) 15 mg tablet Take 0.5 tablets (7.5 mg) by mouth once daily. 08/28/2023 Active Start: 02-11-2023 take 1 tablet by jacques th once daily ARIPiprazole (Abilify) 10 mg tablet Take 1 tablet (10 mg) by mouth once daily. 0 02/11/2023 Active take 1 tablet by jacques th once daily ARIPiprazole (ABILIFY) 10 MG tablet Take 10 mg by mouth daily. 0 Active aspirin 81 mg delayed release oral tablet (20 sources) Platelet Aggregation Inhibitor, Nonsteroidal Anti-inflammatory Drug Start: 10-12-2020 take 1 tablet by mouth once daily aspirin 81 mg EC tablet Take 1 tablet (81 mg) by mouth once daily. 10/12/2020 Active 24 hr buPROPion hydrochloride 300 mg extended release oral tablet (3 sources) Aminoketone Start: 03-31-2025 take 1 tablet by mouth once daily in the morning buPROPion XL (Wellbutrin XL) 300 mg 24 hr tablet Take 1 tablet (300 mg) by mouth once daily in the morning. 03/31/2025 Active Calcium Carbonate / Ergocalciferol (1 source) Provitamin D2 Compound take 1 tablet by mouth twice daily calcium carbonate-vitamin D2 500 mg(1,250mg) -200 unit tablet Take 1 tablet by mouth 2 (two) times a day. 0 Active carBAMazepine 200 mg oral tablet (20 sources) Mood Stabilizer Start: 01-22-2021 take 2 tablets by mouth twice daily carBAMazepine (TEGretol) 200 mg tablet Take 2 tablets (400 mg) by mouth 2 times a day. 01/22/2021 Active Start: 01-22-2021 take 1 tablet by jacques th three times daily carBAMazepine 200 MG Oral Tablet TAKE 1 TABLET 3 TIMES DAILY. Quantity: 270 Refills: 3 Ordered: 10-Sep-2021 James Sahu DO Start : 22-Jan-2021 Active take 1 tablet by jacques th twice daily carBAMazepine (TEGRETOL) 200 mg tablet Take 200 mg by mouth 2 (two) times a day. 0 Active carvedilol 12.5 mg oral tablet (20 sources) alpha-Adrenergic Irina, beta-Adrenergic Irina Start: 04-19-2025 End: 07-18-2025 take 1 tablet by mouth twice daily carvedilol (Coreg) 12.5 mg tablet Indications: Primary hypertension Take 1 tablet (12.5 mg) by mouth 2 times daily (morning and late afternoon). 60 tablet 2 04/19/2025 07/18/2025 Active Start: 05-31-2024 End: 04-19-2025 take 1 tablet by mouth twice daily carvedilol (Coreg) 6.25 mg tablet Indications: Primary hypertension Take 1 tablet (6.25 mg) by mouth 2 times daily (morning and late afternoon). 180 tablet 3 05/31/2024 04/19/2025 Discontinued (Reorder) Start: 06-23-2023 take 1 tablet by jacques th twice daily at mealtime carvedilol (Coreg) 6.25 mg tablet Indications: Primary hypertension Take 1 tablet (6.25 mg) by mouth 2 times a day with meals. 180 tablet 3 06/23/2023 Active Start: 02-23-2023 take 1 tablet by jacques th twice daily at mealtime carvedilol (Coreg) 6.25 mg tablet Indications: Primary hypertension Take 1 tablet (6.25 mg) by mouth 2 times a day with meals. 60 tablet 3 02/23/2023 Active Start: 09-10-2021 Carvedilol 3.1 25 MG Oral Tablet Quantity: 30 Refills: 0 Ordered: 06-Aug-2022 DO Start : 10-Sep-2021 Complete Start: 11-21-2020 take 1 tablet by jacques th twice daily at mealtime Carvedilol 6.25 MG Oral Tablet TAKE 1 TABLET TWICE DAILY WITH MEALS. Quantity: 60 Refills: 5 Ordered: 14-Jul-2022 Young DNP, EARLY CHILDHOOD LEAD TEACHER-SYSTEMS SUPPORT ENGINEER, Emilie Start : 21-Nov-2020 Active Start: 11-21-2020 take 1 tablet by jacques th once daily Carvedilol 3.125 MG Oral Tablet TAKE 1 TABLET BY MOUTH EVERY DAY Quantity: 90 Refills: 3 Ordered: 10-Sep-2021 James Sahu DO Start : 21-Nov-2020 Active Start: 08-21-2020 carvediloL (CO REG) 3.125 MG tablet cephalexin 500 mg oral capsule (3 sources) Cephalosporin Antibacterial Start: 06-16-2025 End: 06-26-2025 take 1 capsule by mouth four times daily cephalexin (Keflex) 500 mg capsule Indications: UTI (urinary tract infection), uncomplicated Take 1 capsule (500 mg) by mouth 4 times a day for 10 days. 40 capsule 06/16/2025 06/26/2025 Active Start: 06-17-2024 End: 06-27-2024 take 1 capsule by mouth four times daily cephalexin (Keflex) 500 mg capsule Indications: Urinary tract infection without hematuria, site unspecified , Hyponatremia Take 1 capsule (500 mg) by mouth 4 times a day for 10 days. 40 capsule 06/17/2024 06/27/2024 Active cholecalciferol 1.25 mg oral capsule (20 sources) Vitamin D Start: 09-10-2021 take 1 capsule by mouth in the morning cholecalciferol (Vitamin D-3) 1,250 mcg (50,000 unit) capsule Take 1 capsule (50,000 Units) by mouth in the morning. 0 09/10/2021 Active Start: 09-10-2021 take 1 capsule by mo ut once daily D3-50 1.25 MG (23083 UT) Oral Capsule TAKE 1 CAPSULE ONCE DAILY Quantity: 0 Refills: 0 Ordered: 10-Sep-2021 James Sahu DO Start : 10-Sep-2021 Active take 1 tablet by jacques th twice daily cholecalciferol (Vitamin D-3) 50 MCG (1999 UT) tablet Take 1 tablet (50 mcg) by mouth 2 times a day. Active take 1 tablet by jacques th twice daily cholecalciferol (Vitamin D-3) 50 MCG (1999 UT) tablet Take 1 tablet (2,000 Units) by mouth 2 times a day. Active ciprofloxacin 500 mg oral tablet (1 source) Quinolone Antimicrobial Start: 07-08-2024 End: 07-15-2024 take 1 tablet by mouth twice daily ciprofloxacin (Cipro) 500 mg tablet Indications: Acute cystitis without hematuria , Dysuria Take 1 tablet (500 mg) by mouth 2 times a day for 7 days. 14 tablet 07/08/2024 07/15/2024 Active ciprofloxacin 3 mg/ml / dexamethasone 1 mg/ml otic suspension (5 sources) Corticosteroid, Quinolone Antimicrobial Start: 04-13-2024 End: 04-20-2024 ciprofloxacin-dexam ethasone (Ciprodex) otic suspension Indications: Other infective acute otitis externa of left ear Administer 4 drops into the left ear 2 times a day for 7 days. 5 mL 04/13/2024 04/20/2024 Active Start: 04-15-2023 ciprofloxacin- dexamethasone (CiproDEX) otic suspension Indications: Acute diffuse otitis externa of left ear Administer 4 drops into the left ear 2 times a day. 7.5 mL 0 04/15/2023 Active Start: 03-20-2022 Ciprofloxacin- Dexamethasone 0.3-0.1 % Otic Suspension INSTILL 3 DROPS IN AFFECTED EAR(S) TWICE DAILY. Quantity: 1 Refills: 1 Ordered: 20-Mar-2022 James Sahu DO Start : 20-Mar-2022 Active diclofenac potassium 50 mg oral tablet (3 sources) Nonsteroidal Anti-inflammatory Drug Start: 03-24-2025 take 1 tablet by mouth three times daily diclofenac (Cataflam) 50 mg tablet Take 1 tablet (50 mg) by mouth 3 times a day. 03/24/2025 Active doxycycline monohydrate 100 mg oral tablet (1 source) Tetracycline-class Drug Start: 04-25-2024 End: 05-02-2024 take 1 tablet by mouth twice daily doxycycline (Adoxa) 100 mg tablet Indications: Acute bronchitis, unspecified organism Take 1 tablet (100 mg) by mouth 2 times a day for 7 days. Take with a full glass of water and do not lie down for at least 30 minutes after 14 tablet 04/25/2024 05/02/2024 Active eszopiclone 1 mg oral tablet (7 sources) Start: 06-17-2024 End: 06-07-2025 take 2 tablets by mouth once daily at bedtime eszopiclone (Lunesta) 1 mg tablet Take 2 tablets (2 mg) by mouth once daily at bedtime. 06/17/2024 06/07/2025 Discontinued (Therapy completed) Start: 06-17-2024 take 1 tablet by jacques th once daily at bedtime eszopiclone (Lunesta) 1 mg tablet Take 1 tablet (1 mg) by mouth once daily at bedtime. 06/17/2024 Active gemfibrozil 600 mg oral tablet (1 source) Peroxisome Proliferator Receptor alpha Agonist take 1 tablet by mouth twice daily before mealtime gemfibrozil (LOPID) 600 MG tablet Take 600 mg by mouth 2 (two) times a day before meals. 0 Active ketorolac tromethamine 10 mg oral tablet (3 sources) Nonsteroidal Anti-inflammatory Drug, Cyclooxygenase Inhibitor Start: 06-16-20 End: 06-21-20 take 1 tablet by mouth every six hours for pain ketorolac (Toradol) 10 mg tablet Indications: Periumbilical abdominal pain Take 1 tablet (10 mg) by mouth every 6 hours if needed for moderate pain (4 - 6) for up to 5 days. 20 tablet 06/16/2025 06/21/2025 Active Start: 06-16-2025 End: 06-16-2025 15 mg, intravenous, Once, On Thu06/16/25 at 0135, For 1 dose Start: 06-17-2024 End: 06-17-2024 30 mg, intravenous, Once, On Thu06/17/24 at 1215, For 1 dose losartan potassium 100 mg oral tablet (20 sources) Angiotensin 2 Receptor Irina Start: 06-14-2025 take 1 tablet by mouth once daily losartan (Cozaar) 100 mg tablet Indications: Primary hypertension TAKE 1 TABLET BY MOUTH DAILY 28 tablet 2 06/14/2025 Active Start: 09-01-2023 End: 06-07-2025 take 1 tablet by mouth once daily losartan (Cozaar) 100 mg tablet Indications: Primary hypertension Take 1 tablet (100 mg) by mouth once daily. 30 tablet 11 09/01/2023 06/07/2025 Discontinued (Therapy completed) Start: 05-16-2022 take 1 tablet by jacques th in the morning losartan (Cozaar) 100 mg tablet Take 1 tablet (100 mg) by mouth in the morning. 0 05/16/2022 Active magnesium gluconate 500 mg oral tablet (20 sources) take 1 tablet by jacques th once daily magnesium gluconate (Magonate) 27.5 mg magne- sium (500 mg) tablet Take 1 tablet (27.5 mg) by mouth once daily. Active take 1 tablet by mouth once zheng y Magnesium Gluconate 500 MG Oral Tablet TAKE 1 TABLET DAILY. Quantity: 0 Refills: 0 Ordered: 21-Aug-2022 DO Active melatonin 3 mg oral tablet (20 sources) Start: 09-10-2021 take 5 mg by mouth once daily at bedtime melatonin 3 mg tablet Take 5 mg by mouth once daily at bedtime. 09/10/2021 Active Start: 09-10-2021 take 1 tablet by jacques th once daily at bedtime melatonin 3 mg tablet Take 1 tablet (3 mg) by mouth once daily at bedtime. 09/10/2021 Active 24 hr metFORMIN hydrochloride 500 mg extended release oral tablet (20 sources) Biguanide Start: 11-23-2023 End: 10-20-2025 take 2 tablets by mouth twice daily metFORMIN XR (Glucophage-XR) 500 mg 24 hr tablet Indications: Type 2 diabetes mellitus without complication, without long-term current use of insulin (Multi) Take 2 tablets (1,000 mg) by mouth 2 times daily (morning and late afternoon). Do not crush, chew, or split. 360 tablet 3 10/20/2024 10/20/2025 Active Start: 12-05-2021 End: 04-15-2023 take 2 tablets by mouth every twenty-four hours at bedtime metFORMIN, OSM, (Fortamet) 500 mg 24 hr tablet Take 2 tablets (1,000 mg) by mouth in the morning and at bedtime. 0 12/05/2021 04/15/2023 Discontinued (Therapy completed) Start: 12-05-2021 take 2 tablets by [facility] twice daily metFORMIN HCl ER (OSM) 500 MG Oral Tablet Extended Release 24 Hour Take 2 tablets twice daily. Quantity: 120 Refills: 11 Ordered: 06-Dec-2021 James Sahu DO Start : 05-Dec-2021 Active PLEASE D/C 1000 MG BID Start: 09-10-2021 take 1 tablet by jacques th twice daily metFORMIN HCl - 1000 MG Oral Tablet take 1 tablet by mouth twice a day Quantity: 180 Refills: 1 Ordered: 10-Sep-2021 James Sahu DO Start : 10-Sep-2021 Active take 1 tablet by jacques th twice daily at mealtime metFORMIN (GLUCOPHAGE) 500 MG tablet Take 500 mg by mouth 2 (two) times a day with meals. 0 Active 24 hr metoprolol succinate 50 mg extended release oral tablet (2 sources) beta-Adrenergic Irina take 1 tablet by mouth once daily metoprolol succinate (TOPROL-XL) 50 MG 24 hr tablet Take 50 mg by mouth daily. 0 Active take 1 tablet by mouth twice josias ly metoprolol tartrate (LOPRESSOR) 100 MG tablet Take 100 mg by mouth 2 (two) times a day. 0 Active multivit-min/iron/folic/lute in (CENTRUM SILVER WOMEN ORAL) (12 sources) Start: 09-10-2021 take 1 tablet by mouth once in the morning multivit-min/iron/folic/lutein (CENTRUM SILVER WOMEN ORAL) Take 1 tablet by mouth in the morning. 09/10/2021 Active Start: 09-10-2021 take 1 tablet by jacques once in the morning multivit-min/iron/folic/lutein (CENTRUM SILVER WOMEN ORAL) Take 1 tablet by mouth in the morning. 0 09/10/2021 Active NIFEdipine 90 mg osmotic 24 hr extended release oral tablet (20 sources) Dihydropyridine Calcium Channel Irina Start: 05-31-2024 take 1 tablet by mouth once daily NIFEdipine ER (NIFEdipine CC) 90 mg 24 hr tablet Indications: Primary hypertension Take 1 tablet (90 mg) by mouth once daily. 90 tablet 04/20/2025 Active Start: 06-23-2023 take 1 tablet by jacques once daily NIFEdipine ER (NIFEdipine CC) 90 mg 24 hr tablet Indications: Primary hypertension Take 1 tablet (90 mg) by mouth once daily. 90 tablet 3 06/23/2023 Active Start: 02-23-2023 take 1 tablet by jacques th once daily NIFEdipine CC (Adalat CC) 90 mg 24 hr tablet Indications: Primary hypertension Take 1 tablet (90 mg) by mouth once daily. 30 tablet 3 02/23/2023 Active Start: 06-10-2022 take 1 tablet by jacques th once daily NIFEdipine ER 90 MG Oral Tablet Extended Release 24 Hour TAKE 1 TABLET DAILY. Quantity: 90 Refills: 3 Ordered: 13-Jun-2022 LUCÍA Cornelius DNP, Emilie Start : 10-Jun-2022 Active Start: 05-23-2022 take 2 tablets by mo ut once daily NIFEdipine ER 30 MG Oral Tablet Extended Release 24 Hour TAKE 2 TABLET Daily Quantity: 180 Refills: 3 Ordered: 10-Jun-2022 LUCÍA Cornelius DNP, Emilie Start : 23-May-2022 Active Start: 05-23-2022 take 1 tablet by jacques th once daily NIFEdipine ER 30 MG Oral Tablet Extended Release 24 Hour TAKE 1 TABLET DAILY. Quantity: 30 Refills: 6 Ordered: 23-May-2022 LUCÍA Cornelius DNP, Emilie Start : 23-May-2022 Active omega-3 acid ethyl esters (assisted) 1000 mg oral capsule (3 sources) omega-3 acid eth yl esters (Lovaza) 1 gram capsule Take 1 capsule (1 g) by mouth 2 times a day. Active phenazopyridine hydrochloride 200 mg oral tablet (1 source) Start: 2023 End: 2023 take 1 tablet by mouth three times daily phenazopyridine (Pyridium) 200 mg tablet Indications: Acute cystitis without hematuria , Dysuria Take 1 tablet (200 mg) by mouth 3 times daily (morning, midday, late afternoon) for 3 days. 9 tablet 07/08/2024 07/11/2024 Active pioglitazone 30 mg oral tablet (20 sources) Peroxisome Proliferator Receptor alpha Agonist, Peroxisome Proliferator Receptor gamma Agonist, Thiazolidinedione Start: 2024 End: 2025 take 1 tablet by mouth once daily pioglitazone (Actos) 30 mg tablet Indications: Type 2 diabetes mellitus without complication, without long-term current use of insulin (Multi) Take 1 tablet (30 mg) by mouth once daily. 30 tablet 11 10/20/2024 10/20/2025 Active Start: 06-23-2023 End: 09-28-2024 take 1 tablet by mouth once daily pioglitazone (Actos) 30 mg tablet Indications: Type 2 diabetes mellitus without complication, without long-term current use of insulin (Multi) Take 1 tablet (30 mg) by mouth once daily. 90 tablet 3 06/23/2023 09/28/2024 Discontinued (Therapy completed) Start: 05-26-2022 take 1 tablet by jacques th in the morning pioglitazone (Actos) 30 mg tablet Take 1 tablet (30 mg) by mouth in the morning. 0 05/26/2022 Active sodium chloride 1000 mg oral tablet (6 sources) Start: 06-17-2024 End: 06-23-2024 take 1 tablet by mouth once daily sodium chloride 1,000 mg tablet Indications: Urinary tract infection without hematuria, site unspecified , Hyponatremia Take 1 tablet (1 g) by mouth once daily for 3 doses. 3 tablet 06/17/2024 06/23/2024 Active Start: 06-17-2024 End: 06-17-2024 1,000 mL, intravenous, at 2, 000 mL/hr, Administer over 30 Minutes, Once, On Thu06/17/24 at 1515, For 1 dose Start: 10-23-2020 End: 10-23-2020 sodium chloride 0.9% (NS) adelaide amanda 500 mL Start: 10-23-2020 End: 10-23-2020 sodium chloride (PF) (NS) fl ush 5 mL 1 ml triamcinolone acetonide 40 mg/ml injection (4 sources) Corticosteroid Start: 09-28-2024 End: 09-28-2024 triamcinolone acetonide (Kenalog-40) injection 40 mg Start: 09-28-2024 End: 09-28-2024 inject 40 mg by intramuscular injection once 40 mg, intramuscular, Once, On Thu09/28/24 at 1345, For 1 dose Start: 08-21-2022 Triamcinolone Acetonide 0.1 % External Cream APPLY AND RUB IN A THIN FILM TO AFFECTED AREAS TWICE DAILY.(AM AND PM). Quantity: 1 Refills: 0 Ordered: 21-Aug-2022 James Sahu DO Start : 12-Isaias-2023 Active valsartan 160 mg oral tablet (2 sources) Angiotensin 2 Receptor Irina Start: 06-07-2025 End: 06-07-2026 take 1 tablet by mouth once daily valsartan (Diovan) 160 mg tablet Indications: Primary hypertension Take 1 tablet (160 mg) by mouth once daily. 30 tablet 11 06/07/2025 06/07/2026 Active 24 hr venlafaxine 75 mg extended release oral capsule (20 sources) Serotonin and Norepinephrine Reuptake Inhibitor Start: 04-01-2023 End: 09-28-2024 take 1 capsule by mouth once daily venlafaxine XR (Effexor-XR) 75 mg 24 hr capsule TAKE 1 CAPSULE BY MOUTH ONCE DAILY ALONG WITH THE 150 MG FOR TOTAL DAILY DOSE OF 225MG 04/01/2023 09/28/2024 Discontinued (Therapy completed) Start: 05-23-2020 take 1 capsule by [facility] every twenty-four hours Venlafaxine HCl ER 75 MG Oral Capsule Extended Release 24 Hour Quantity: 90 Refills: 0 Ordered: 19-Feb-2021 DO Start : 23-May-2020 Complete take 1 capsule by mo ut twice daily venlafaxine XR (Effexor-XR) 150 mg 24 hr capsule Take 1 capsule (150 mg) by mouth 2 times a day. Active take 1 capsule by pr ut every twenty-four hours in the morning venlafaxine XR (Effexor-XR) 150 mg 24 hr capsule Take 1 capsule (150 mg) by mouth in the morning. 0 Active take 1 capsule by mouth once josias ly Venlafaxine HCl ER 150 MG Oral Capsule Extended Release 24 Hour TAKE 1 CAPSULE DAILY WITH 75 MG DOSE Quantity: 0 Refills: 0 Ordered: 21-Aug-2022 DO Active End: 08-21-2022 take 1 tablet by mouth once daily Venlafaxine HCl - 75 MG Oral Tablet TAKE 1 TABLET DAILY WITH 150 MG DOSE Quantity: 0 Refills: 0 Ordered: 21-Aug-2022 DO End : 21-Aug-2022 Complete take 3 tablets by mouth once josias ly venlafaxine (EFFEXOR) 100 MG tablet Take 300 mg by mouth daily. 0 Active vitamin b12 1 mg extended release oral tablet (20 sources) Vitamin B12 End: 09-28-2024 take 1 tablet by mouth once daily cyanocobalamin, vitamin B-12, (Vitamin B-12) 1,000 mcg tablet extended release Take 1 tablet (1,000 mcg) by mouth once daily. 09/28/2024 Discontinued (Therapy completed) zinc sulfate 220 mg oral capsule (14 sources) zinc sulfate (Zi ncate) 220 (50 Zn) MG capsule Take by mouth. Active zinc sulfate (Zi ncate) 220 (50 Zn) MG capsule Take by mouth. 0 Active Completed/Discontinued Medications Medication Drug Class(es) Dates Sig (Normalized) Sig (Original) [id number] 200 actuat albuterol 0.09 mg/actuat metered dose inhaler (3 sources) beta2-Adrenergic Agonist Start: 04-25-2024 End: 04-25-2025 take 2 puff(s) by inhalation every six hours for wheezing albuterol 90 mcg/actuation inhaler Indications: Acute bronchitis, unspecified organism Inhale 2 puffs every 6 hours if needed for wheezing. 18 g 04/25/2024 06/23/2024 Discontinued (Therapy completed) amLODIPine 10 mg oral tablet (2 sources) Dihydropyridine Calcium Channel Irina Start: 10-25-2020 amLODIPine Besylate 10 MG Oral Tablet Quantity: 90 Refills: 0 Ordered: 25-Oct-2020 DO Start : 25-Oct-2020 Complete Start: 07-22-2020 amLODIPine (NO RVASC) 10 MG tablet amphetamine aspartate 5 mg / amphetamine sulfate 5 mg / dextroamphetamine saccharate 5 mg / dextroamphetamine sulfate 5 mg oral tablet (1 source) Central Nervous System Stimulant Start: 09-21-2020 Amphetamine-Dextroamphetamin e 20 MG Oral Tablet Quantity: 60 Refills: 0 Ordered: 25-Sep-2020 DO Start : 21-Sep-2020 Complete ascorbic acid 500 mg oral tablet (20 sources) Vitamin C Start: 09-10-2021 Vitamin C 500 MG Oral Tablet Quantity: 0 Refills: 0 Ordered: 10-Sep-2021 James Sahu DO Start : 10-Sep-2021 Active take 1 tablet by mouth once zheng y ascorbic acid (Vitamin C) 1,000 mg tablet Take 1 tablet (1,000 mg) by mouth once daily. Active B-12 Dots 500 MCG Oral Tablet Disintegrating (8 sources) Start: 09-10-2021 B-12 Dots 500 MCG Oral Tablet Disintegrating Quantity: 0 Refills: 0 Ordered: 10-Sep-2021 James Sahu DO Start : 10-Sep-2021 Active biotin 5 mg oral capsule (8 sources) Start: 09-10-2021 Biotin 5000 MC G Oral Capsule Quantity: 0 Refills: 0 Ordered: 10-Sep-2021 James Sahu DO Start : 10-Sep-2021 Active cefTRIAXone 1000 mg injection (2 sources) Cephalosporin Antibacterial Start: 06-16-2025 End: 06-16-2025 1 g, intravenous, at 100 mL/hr, Administer over 30 Minutes, Once, On Thu06/16/25 at 0135, For 1 dose, premix bag, Suspected Indication (Select all that apply): Urinary Tract Infection, Type of Therapy: Empiric, Type of Urinary Tract Infection: Uncomplicated, Indications: Urinary Tract Infection Start: 06-17-2024 End: 06-17-2024 2 g, intravenous, at 100 mL/ hr, Administer over 30 Minutes, Once, On Thu06/17/24 at 1430, For 1 dose, premix bag, Suspected Indication (Select all that apply): Urinary Tract Infection, Type of Therapy: Empiric, Type of Urinary Tract Infection: Uncomplicated, Indications: Urinary Tract Infection Centrum Silver 50+Women Oral Tablet (20 sources) Start: 09-10-2021 take 1 tablet by mouth once daily Centrum Silver 50+Women Oral Tablet TAKE 1 TABLET DAILY. Quantity: 0 Refills: 0 Ordered: 10-Sep-2021 James Sahu DO Start : 10-Sep-2021 Active clonazePAM 1 mg oral tablet (2 sources) Benzodiazepine Start: 10-19-2020 clonazePAM 1 M G Oral Tablet Quantity: 60 Refills: 0 Ordered: 28-Nov-2020 DO Start : 19-Oct-2020 Complete take 1 tablet by jacques th twice daily as needed for anxiety clonazePAM (KLONOPIN) 1 MG tablet Take 1 mg by mouth 2 (two) times a day as needed for anxiety. 0 Active dapagliflozin 10 mg oral tablet (4 sources) Sodium-Glucose Cotransporter 2 Inhibitor Start: 12-05-2021 take 1 tablet by mouth once daily in the morning Farxiga 10 MG Oral Tablet TAKE 1 TABLET BY MOUTH EVERY MORNING Quantity: 90 Refills: 3 Ordered: 05-Dec-2021 James Sahu DO Start : 05-Dec-2021 Active doxepin hydrochloride 25 mg oral capsule (5 sources) Tricyclic Antidepressant Start: 02-10-2024 End: 06-23-2024 take 1 capsule by mouth once daily at bedtime doxepin (SINEquan) 25 mg capsule Take 1 capsule (25 mg) by mouth once daily at bedtime. 02/10/2024 06/23/2024 Discontinued (Therapy completed) Start: 02-04-2023 take 1 capsule by [facility] once daily at bedtime doxepin (SINEquan) 10 mg capsule Take 1 capsule (10 mg) by mouth once daily at bedtime. 0 02/04/2023 Active empagliflozin 25 mg oral tablet (2 sources) Sodium-Glucose Cotransporter 2 Inhibitor Start: 05-16-2022 take 1 tablet by mouth once daily Jardiance 25 MG Oral Tablet TAKE 1 TABLET BY MOUTH ONCE DAILY Quantity: 30 Refills: 11 Ordered: 16-May-2022 James Sahu DO Start : 16-May-2022 Active Start: 12-03-2021 take 1 tablet by jacques once daily Jardiance 25 MG Oral Tablet TAKE 1 TABLET BY MOUTH ONCE DAILY Quantity: 30 Refills: 11 Ordered: 03-Dec-2021 James Sahu DO Start : 03-Dec-2021 Active erythromycin 250 mg oral tablet (2 sources) Macrolide, Macrolide Antimicrobial Start: 09-28-2024 End: 10-08-2024 take 1 tablet by mouth four times daily erythromycin base (E-Mycin) 250 mg tablet Indications: Folliculitis Take 1 tablet (250 mg) by mouth 4 times a day for 10 days. 40 tablet 09/28/2024 10/08/2024 glipiZIDE 5 mg oral tablet (4 sources) Sulfonylurea Start: 03-01-2024 End: 03-01-2025 take 1 tablet by mouth twice daily before mealtime glipiZIDE (Glucotrol) 5 mg tablet Indications: Type 2 diabetes mellitus without complication, without long-term current use of insulin (Multi) Take 1 tablet (5 mg) by mouth 2 times a day before meals. 60 tablet 11 03/01/2024 06/23/2024 Discontinued (Therapy completed) hydroCHLOROthiazide 25 mg / losartan potassium 100 mg oral tablet (7 sources) Thiazide Diuretic, Angiotensin 2 Receptor Irina Start: 01-03-2021 take 1 tablet by mouth once daily Losartan Potassium-HCTZ 100-25 MG Oral Tablet TAKE 1 TABLET ONCE DAILY. Quantity: 90 Refills: 3 Ordered: 10-Sep-2021 James Sahu DO Start : 03-Jan-2021 Active Start: 07-29-2020 losartan-hydro chlorothiazide (HYZAAR) 100-25 mg per tablet ibuprofen 600 mg oral tablet (20 sources) Nonsteroidal Anti-inflammatory Drug Start: 06-19-2022 Ibuprofen 600 MG Oral Tablet Quantity: 15 Refills: 0 Ordered: 19-Jun-2022 DO Start : 19-Jun-2022 Complete ibuprofen 200 mg tablet Take by mouth every 6 (six) hours. Active take 3 tablets by mouth every si x hours Ibuprofen 200 MG Oral Tablet TAKE 3 TABLET Every 6 hours PRN Quantity: 0 Refills: 0 Ordered: 21-Aug-2022 DO Active iohexol (OMNIPaque) 350 mg iodine/mL solution 70 mL (2 sources) Start: 06-16-2025 End: 06-16-2025 70 mL, intravenous, Once in imaging, Starting on Thu06/16/25 at 0233, For 1 dose Start: 06-17-2024 End: 06-17-2024 70 mL, intravenous, Once in imaging, Starting on Thu06/17/24 at 1345, For 1 dose Magnesium (8 sources) Start: 09-10-2021 take 1 tablet by mouth in the morning Magnesium 400 MG Oral Tablet TAKE 1 TABLET IN THE MORNING Quantity: 0 Refills: 0 Ordered: 10-Sep-2021 James Sahu DO Start : 10-Sep-2021 Active methylPREDNISolone (3 sources) Corticosteroid Start: 04-25-2024 End: 06-23-2024 methylPREDNISolone (Medrol Dospak) 4 mg tablets Indications: Acute bronchitis, unspecified organism Take as directed on package. 21 tablet 04/25/2024 06/23/2024 Discontinued (Therapy completed) Start: 04-25-2024 methylPREDNISo lone (Medrol Dospak) 4 mg tablets Indications: Acute bronchitis, unspecified organism Take as directed on package. 21 tablet 04/25/2024 Active mirtazapine 15 mg oral table t (19 sources) Start: 05-01-2021 Mirtazapine 15 MG Oral Tablet Quantity: 15 Refills: 0 Ordered: 21-Aug-2021 DO Start : 01-May-2021 Complete End: 06-23-2024 take 1 tablet by mouth once daily at bedtime mirtazapine (Remeron) 15 mg tablet Take 1 tablet (15 mg) by mouth once daily at bedtime. 06/23/2024 Discontinued (Therapy completed) Mounjaro 2.5 MG/0.5ML Subcutaneous Solution Pen-injector (2 sources) Start: 08-21-2022 Mounjaro 2.5 M G/0.5ML Subcutaneous Solution Pen-injector INJECT 1 PEN UNDER THE SKIN WEEKLY Quantity: 4 Refills: 1 Ordered: 21-Aug-2022 James Sahu DO Start : 21-Aug-2022 Active No home medication informati on (14 sources) No home medicati on information SITagliptin 100 mg oral tablet (2 sources) Dipeptidyl Peptidase 4 Inhibitor Start: 05-23-2022 take 1 tablet by mouth once daily Januvia 100 MG Oral Tablet TAKE 1 TABLET DAILY. Quantity: 30 Refills: 5 Ordered: 23-May-2022 James Sahu DO Start : 23-May-2022 Active Start: 05-19-2022 take 1 tablet by jacques once daily Januvia 100 MG Oral Tablet TAKE 1 TABLET DAILY. Quantity: 30 Refills: 5 Ordered: 19-May-2022 James Sahu DO Start : 19-May-2022 Active traZODone hydrochloride 50 mg oral tablet (3 sources) Serotonin Reuptake Inhibitor Start: 05-26-2024 End: 06-23-2024 traZODone (Desyrel) 50 mg tablet Take 1 tablet (50 mg) by mouth. 05/26/2024 06/23/2024 Discontinued (Therapy completed) Start: 01-22-2021 traZODone HCl - 50 MG Oral Tablet Quantity: 90 Refills: 0 Ordered: 21-Aug-2021 DO Start : 22-Jan-2021 Complete turmeric extract 500 mg oral capsule (13 sources) take 2 tablets by [facility] once daily Turmeric 500 MG Oral Tablet TAKE 2 TABLET Daily Quantity: 0 Refills: 0 Ordered: 21-Aug-2022 DO Active take 2 tablets by mouth once josias ly Turmeric 500 MG Oral Tablet TAKE 2 TABLET Daily Quantity: 0 Refills: 0 Ordered: 23-May-2022 DO Active turmeric root extract 500 mg tablet (5 sources) End: 06-23-2024 take 2 tablets by mouth in the morning turmeric root extract 500 mg tablet Take 2 tablets by mouth in the morning. 06/23/2024 Discontinued (Therapy completed) [facility] turmeric root extract 500 mg tablet Take 2 tablets by mouth in the morning. Active take 2 [facility] turmeric root extract 500 mg tablet Take 2 tablets by mouth in the morning. 0 Active vitamin a 2.4 mg oral capsule (8 sources) Vitamin A Start: 09-10-2021 Vitamin A 2400 MCG (8000 UT) Oral Capsule TAKE DIRECTED. Quantity: 0 Refills: 0 Ordered: 10-Sep-2021 Theo Sahu DOn Start : 10-Sep-2021 Active vitamin e 180 mg oral capsule (8 sources) Start: 09-10-2021 Vitamin E 180 MG (400 UNIT) Oral Capsule Quantity: 0 Refills: 0 Ordered: 10-Sep-2021 Theo Sahu DOn Start : 10-Sep-2021 Active Zinc (11 sources) Zinc CAPS Quanti ty: 0 Refills: 0 Ordered: 23-May-2022 DO Active Problems Active Problems Problem Classification Problem Date Documented Da te Episodic/Chronic Abdominal pain (4 sources) Epigastric pain; 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: [Periumbilical pain] Onset: 2 06-16-2025 Episodic Anxiety disorders (1 source) Post-traumatic stress disorder, unspecified; 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: [Post-traumatic stress disorder, unspecified] Onset: 5 Chronic Diabetes mellitus without complication (20 sources) Diabetes mellitus; 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: [Diabetes mellitus without mention of complication, type II or unspecified type, not stated as uncontrolled] Onset: 2 04-15-2023 Chronic Diabetes mellitus without complication (1 source) Hyperglycemia; 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: [Hyperglycemia] Episodic E Codes: Adverse effects of medical drugs (2 sources) Adverse effect of carbonic-anhydrase inhibitors, benzothiadiazides and other diuretics, initial encounter; 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: [Adverse effect of iminostilbenes, initial encounter] Onset: 2 Episodic Essential hypertension (20 sources) Hypertensive disorder; 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: [Unspecified essential hypertension] Onset: 2 09-18-2022 Chronic Menstrual disorders (5 sources) Irregular periods; 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: [Irregular menstrual cycle] Chronic Miscellaneous mental health disorders (1 source) Primary insomnia; 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: [Primary insomnia] 04-15-2023 Chronic Mood disorders (20 sources) Depressive disorder; 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: [Depressive disorder, not elsewhere classified] Onset: 2 Resolved: 3 04-15-2023 Chronic Other aftercare (1 source) 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; 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: [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] Onset: 2 Episodic Other aftercare (1 source) terminal computer operator (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) use of aspirin; 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: [halfway (current) use of aspirin] Onset: 2 Episodic Other circulatory disease (20 sources) History of cerebrovascular accident; 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: [Personal history of transient ischemic attack (TIA), and cerebral infarction without residual deficits] Episodic Other circulatory disease (1 source) Personal history of transient ischemic attack (TIA), and cerebral infarction without residual deficits; 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: [Prsnl hx of TIA (TIA), and cereb infrc w/o resid deficits] Onset: 2 Episodic Other connective tissue disease (2 sources) Arthrodesis status; 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: [Arthrodesis status] Onset: 5 Episodic Other ear and sense organ disorders (1 source) Acute otitis externa; 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: [Diffuse otitis externa, left ear] 04-15-2023 Episodic Other endocrine disorders (5 sources) Syndrome of inappropriate secretion of antidiuretic hormone; 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: [Syndrome of inappropriate secretion of antidiuretic hormone] Onset: 2 Chronic Other endocrine disorders (11 sources) Syndrome of inappropriate vasopressin secretion; 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: [Syndrome of inappropriate secretion of antidiuretic hormone] Onset: 4 09-01-2023 Chronic Other gastrointestinal disorders (1 source) Constipation, unspecified; 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: [Constipation, unspecified] Onset: 2 Episodic Other nervous system disorders (2 sources) Demyelinating disease of central nervous system, unspecified Onset: 7 Chronic Other nutritional; endocrine; and metabolic disorders (20 sources) Obesity; 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: [Obesity, unspecified] Chronic Other nutritional; endocrine; and metabolic disorders (2 sources) Body mass index 40+ - severely obese; 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: [Morbid obesity] Chronic Other nutritional; endocrine; and metabolic disorders (20 sources) H/O: diabetes mellitus; 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: [Personal history of other endocrine, metabolic, and immunity disorders] Episodic Other nutritional; endocrine; and metabolic disorders (20 sources) H/O: thyroid disorder; 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: [Personal history of other endocrine, metabolic, and immunity disorders] Episodic Other skin disorders (1 source) Folliculitis; 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: [Follicular disorder, unspecified] 09-28-2024 Episodic Other upper respiratory infections (1 source) Acute upper respiratory infection; 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: [Acute URI] Episodic Personality disorders (11 sources) Personality disorder; 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: [Personality disorder, unspecified] Onset: 4 09-01-2023 Chronic Residual codes; unclassified (1 source) Obstructive sleep apnea (adult) (pediatric); 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: [Obstructive sleep apnea (adult) (pediatric)] Onset: 2 Chronic Residual codes; unclassified (11 sources) Obstructive sleep apnea syndrome; 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: [Obstructive sleep apnea (adult) (pediatric)] Onset: 4 09-01-2023 Chronic Residual codes; unclassified (1 source) Insomnia, unspecified; 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: [Insomnia, unspecified] Onset: 2 Episodic Spondylosis; intervertebral disc disorders; other back problems (10 sources) Acute low back pain; 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: [Acute low back pain without sciatica, unspecified back pain laterality] Onset: 5 09-28-2024 Episodic Substance-related disorders (1 source) Nicotine dependence, cigarettes, uncomplicated; 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: [Nicotine dependence, cigarettes, uncomplicated] Onset: 2 Chronic Unclassified (1 source) Contact with and (suspected) exposure to COVID-19; 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: [Contact with and (suspected) exposure to COVID-19] Onset: 2 Unclassified (2 sources) Patient encounter status 09-28-2024 Unclassified (1 source) Low back pain, unspecified; 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: [Low back pain, unspecified] Onset: Urinary tract infections (9 sources) Urinary tract infection, site not specified; 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: [Urinary tract infectious disease] Onset: 06-17-2024 Episodic Past or Other Problems Problem Classification Problem Date Documented Da te Episodic/Chronic Acute bronchitis (1 source) Acute bronchitis; 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: [Acute bronchitis, unspecified] 04-25-2024 Episodic Allergic reactions (14 sources) Allergy status to sulfonamides status; 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: [Eczema] Onset: 04-30-2022 09-01-2023 Episodic Diseases of mouth; excluding dental (11 sources) Sialoadenitis; 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: [Sialoadenitis, unspecified] Onset: 09-01-2023 09-01-2023 Episodic Epilepsy; convulsions (20 sources) Seizure; 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: [Other convulsions] Onset: 09-18-2022 04-15-2023 Episodic Fluid and electrolyte disorders (20 sources) Dehydration; 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: [Hyponatremia] Onset: 09-18-2022 Resolved: 09-18-2022 09-18-2022 Episodic Genitourinary symptoms and ill-defined conditions (3 sources) Dysuria; 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: [Dysuria] Onset: 07-08-2024 07-08-2024 Episodic Mood disorders (3 sources) Mood disorders Onset: 04-19-2025 04-19-2025 Other acquired deformities (2 sources) Spondylolisthesis, lumbar region; 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: [Spondylolisthesis, lumbar region] Onset: 02-24-2025 Episodic Other ear and sense organ disorders (20 sources) Otitis externa; 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: [Infective otitis externa, unspecified] Onset: 09-18-2022 Resolved: 09-18-2022 09-18-2022 Chronic Other ear and sense organ disorders (1 source) Acute infective otitis externa; 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: [Other infective otitis externa, left ear] 04-13-2024 Episodic Other nervous system disorders (20 sources) H/O: ear disorder; 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: [Personal history of other disorders of nervous system and sense organs] Onset: 09-18-2022 Resolved: 09-18-2022 09-18-2022 Episodic Other screening for suspected conditions (not mental disorders or infectious disease) (9 sources) Patient encounter status; 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: [Encounter for screening for malignant neoplasm of colon] Onset: 09-28-2024 09-28-2024 Episodic Other skin disorders (2 sources) Follicular disorder, unspecified; 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: [Follicular disorder, unspecified] Onset: 09-28-2024 Episodic Other upper respiratory infections (20 sources) Sinusitis; 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: [Unspecified sinusitis (chronic)] Onset: 09-18-2022 Resolved: 09-18-2022 09-18-2022 Chronic Residual codes; unclassified (20 sources) Insomnia; 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: [Insomnia, unspecified] Onset: 09-18-2022 09-18-2022 Episodic Thyroid disorders (20 sources) Goiter; 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: [Goiter, unspecified] Onset: 04-30-2022 Resolved: 09-18-2022 09-18-2022 Chronic Unclassified (20 sources) Onset: 04-15-2023 Resolved: 04-19-2025 04-15-2023 Unclassified (1 source) Low back pain, unspecified; 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: [Low back pain, unspecified] Onset: 09-28-2024 Results Test Name Value Interpretation Reference Range Facility [facility] 06-16-2025 Bacteria identified Cx Nom (U) Test: Urine Culture Specimen Source: Clean Catch/Voided Specimen Type: Urine Specimen Date: 06/16/2025104 Result Date: 06/17/2025657 Result Status: Final result Abnormal: No Resulting Lab: [facility] [address] [place] [address] CULTURE Clinically insignificant growth based on current clinical standards. [facility] Comment on above: Performed By: #### 6 30-4 #### ANTONIETA Wagner ([id number]) [facility] ([facility]) [address] [place] [address] CBC W Auto Differential pane l (Bld)on 06-16-2025 Basophils (Bld) [#/Vol] 0.03 10*3/uL [facility] Basophils/100 WBC (Bld) 0.3 % 0.0 - 2.0 % [facility] Eosinophils (Bld) [#/Vol] 0.11 10*3/uL [facility] Eosinophils/100 WBC (Bld) 1.1 % 0.0 - 6.0 % [facility] Erythrocyte distribution width (RBC) [Ratio] 11.9 % 11.5 - 14.5 % [facility] Hematocrit (Bld) [Volume fraction] 29.4 % Low 36.0 - 46.0 % [facility] Hemoglobin (Bld) [Mass/Vol] 10.5 g/dL Low 12.0 - 16.0 g/dL [facility] Immature granulocytes (Bld) [#/Vol] 0.05 10*3/uL [facility] Immature granulocytes/100 WBC (Bld) 0.5 % 0.0 - 0.9 % [facility] Comment on above: Immature Granulocyte Count (IG) includes promyelocytes, myelocytes and metamyelocytes but does not include bands. Percent differential counts (%) should be interpreted in the context of the absolute cell counts (cells/UL). Interpretation and review of laboratory results Abnormal [facility] Lymphocytes (Bld) [#/Vol] 1.94 10*3/uL [facility] Lymphocytes/100 WBC (Bld) 19.4 % 13.0 - 44.0 % [facility] MCH (RBC) [Entitic mass] 30.5 pg 26.0 - 34.0 pg [facility] MCHC (RBC) [Mass/Vol] 35.7 g/dL 32.0 - 36.0 g/dL [facility] MCV (RBC) [Entitic vol] 86 fL 80 - 100 fL [facility] Monocytes (Bld) [#/Vol] 0.84 10*3/uL [facility] Monocytes/100 WBC (Bld) 8.4 % 2.0 - 10.0 % [facility] Neutrophils (Bld) [#/Vol] 7.01 10*3/uL [facility] Comment on above: Percent differential counts (%) should be interpreted in the context of the absolute cell counts (cells/uL). Neutrophils/100 WBC (Bld) 70.3 % 40.0 - 80.0 % [facility] Nucleated RBC/100 WBC (Bld) [Ratio] 0.0 % [facility] Platelets (Bld) [#/Vol] 235 10*3/uL [facility] RBC (Bld) [#/Vol] 3.44 10*6/uL Low [facility] WBC (Bld) [#/Vol] 10.0 10*3/uL [facility] Basophils (Bld) [#/Vol] 0.03 x10*3/uL Normal 0.00-0.10 [facility] Comment on above: Performed By: #### 5 7021-8 #### VELIA HAUSER ([id number]) [facility] ([facility]) [address] [place] [id number] Basophils/100 WBC (Bld) 0.3 % Normal 0.0-2.0 [facility] Comment on above: Performed By: #### 5 7021-8 #### VELIA HAUSER ([id number]) [facility] ([facility]) [address] [place] [id number] Eosinophils (Bld) [#/Vol] 0.11 x10*3/uL Normal 0.00-0.70 [facility] Comment on above: Performed By: #### 5 7021-8 #### VELIA HAUSER ([id number]) [facility] ([facility]) [address] [place] [id number] Eosinophils/100 WBC (Bld) 1.1 % Normal 0.0-6.0 [facility] Comment on above: Performed By: #### 5 7021-8 #### VELIA HAUSER ([id number]) [facility] ([facility]) [address] [place] [address] 11823 Erythrocyte distribution width (RBC) [Ratio] 11.9 % Normal 11.5-14.5 [facility] Comment on above: Performed By: #### 5 7021-8 #### VELIA HAUSER ([id number]) [facility] ([facility]) [address] [place] [id number] Hematocrit (Bld) [Volume fraction] 29.4 % Low 36.0-46.0 [facility] Comment on above: Performed By: #### 5 7021-8 #### VELIA HAUSER ([id number]) [facility] ([facility]) [address] [place] [id number] Hemoglobin (Bld) [Mass/Vol] 10.5 g/dL Low 12.0-16.0 [facility] Comment on above: Performed By: #### 5 7021-8 #### VELIA HAUSER ([id number]) [facility]. [facility] ([facility]) [address] [place] [address] 05218 Immature granulocytes (Bld) [#/Vol] 0.05 x10*3/uL Normal 0.00-0.70 [facility] Comment on above: Performed By: #### 5 7021-8 #### VELIA HAUSER ([id number]) [facility] ([facility]) [address] [place] [address] 76793 Immature granulocytes/100 WBC (Bld) 0.5 % Normal 0.0-0.9 [facility] Comment on above: Result Comment: Opal ture Granulocyte Count (IG) includes promyelocytes, myelocytes and metamyelocytes but does not include bands. Percent differential counts (%) should be interpreted in the context of the absolute cell counts (cells/UL). Performed By: #### 5 7021-8 #### VELIA HAUSER ([id number]) [facility] ([facility]) [address] [place] [address] 82948 Lymphocytes (Bld) [#/Vol] 1.94 x10*3/uL Normal 1.20-4.80 [facility] Comment on above: Performed By: #### 5 7021-8 #### VELIA HAUSER ([id number]) [facility] ([facility]) [address] [place] [address] 10329 Lymphocytes/100 WBC (Bld) 19.4 % Normal 13.0-44.0 [facility] Comment on above: Performed By: #### 5 7021-8 #### VELIA HAUSER ([id number]) [facility] ([facility]) [address] [place] [address] 77007 MCH (RBC) [Entitic mass] 30.5 pg Normal 26.0-34.0 [facility] Comment on above: Performed By: #### 5 7021-8 #### VELIA HAUSER ([id number]) [facility] ([facility]) [address] [place] [address] 87299 MCHC (RBC) [Mass/Vol] 35.7 g/dL Normal 32.0-36.0 [facility] Comment on above: Performed By: #### 5 7021-8 #### VELIA HAUSER ([id number]) [facility] ([facility]) [address] [place] [address] 74270 MCV (RBC) [Entitic vol] 86 fL Normal 80-100 [facility] Comment on above: Performed By: #### 5 7021-8 #### VELIA HAUSER ([id number]) [facility] ([facility]) [address] [place] [address] 07578 Monocytes (Bld) [#/Vol] 0.84 x10*3/uL Normal 0.10-1.00 [facility] Comment on above: Performed By: #### 5 7021-8 #### VELIA HAUSER ([id number]) [facility] ([facility]) [address] [place] [address] 03592 Monocytes/100 WBC (Bld) 8.4 % Normal 2.0-10.0 [facility] Comment on above: Performed By: #### 5 7021-8 #### VELIA HAUSER ([id number]) [facility] ([facility]) [address] [place] [address] 20818 Neutrophils (Bld) [#/Vol] 7.01 x10*3/uL Normal 1.20-7.70 [facility] Comment on above: Result Comment: Perc ent differential counts (%) should be interpreted in the context of the absolute cell counts (cells/uL). Performed By: #### 5 7021-8 #### VELIA HAUSER ([id number]) [facility] ([facility]) [address] [place] [address] 53799 Neutrophils/100 WBC (Bld) 70.3 % Normal 40.0-80.0 [facility] Comment on above: Performed By: #### 5 7021-8 #### VELIA HAUSER ([id number]) [facility] ([facility]) [address] [place] [address] 37566 Nucleated RBC/100 WBC (Bld) [Ratio] 0.0 /100 WBCs Normal 0.0-0.0 [facility] Comment on above: Performed By: #### 5 7021-8 #### VELIA HAUSER ([id number]) [facility] ([facility]) [address] [place] [address] 88952 Platelets (Bld) [#/Vol] 235 x10*3/uL Normal 150-450 [facility] Comment on above: Performed By: #### 5 7021-8 #### VELIA HAUSER ([id number]) [facility] ([facility]) [address] [place] [address] 32481 RBC (Bld) [#/Vol] 3.44 x10*6/uL Low 4.00-5.20 [facility] Comment on above: Performed By: #### 5 7021-8 #### VELIA HAUSER ([id number]) [facility] ([facility]) [address] [place] [address] 10398 WBC (Bld) [#/Vol] 10.0 x10*3/uL Normal 4.4-11.3 [facility] Comment on above: Performed By: #### 5 7021-8 #### VELIA HAUSER ([id number]) [facility] ([facility]) [address] [place] [address] ABDOMEN PELVIS W IV CONTR Zack 06-16-2025 CT ABDOMEN PELVIS W IV CONTRAST Interpreted By: Randy Painter, STUDY: CT ABDOMEN PELVIS W IV CONTRAST; 06/16/2025 2:47 am INDICATION: Signs/Symptoms:pain. COMPARISON: CT ABDOMEN PELVIS W IV CONTRAST 06/17/2024 ACCESSION NUMBER(S): [id number] ORDERING CLINICIAN: BREN KOWALSKI TECHNIQUE: Axial CT images of the abdomen and pelvis with coronal and sagittal reconstructed images obtained. 70 ML of Omnipaque 350 was administered intravenously without immediate complication. FINDINGS: LOWER CHEST: Mild subsegmental atelectasis. LIVER: Hepatomegaly measuring 18.5 cm craniocaudal. Hepatic hypoattenuation, likely secondary to steatosis. BILE DUCTS: Normal caliber. GALLBLADDER: No calcified stones. No wall thickening. PANCREAS: Within normal limits. SPLEEN: Within normal limits. ADRENALS: Within normal limits. KIDNEYS, URETERS, and BLADDER: Bilateral renal cysts and additional cortical hypodensities which are too small to characterize. No hydronephrosis or urinary calculi. Ureters are non-dilated. Urinary bladder within normal limits. REPRODUCTIVE: Calcified fundal uterine fibroid. VESSELS: Moderate atherosclerosis. No abdominal aortic aneurysm. RETROPERITONEUM and LYMPH NODES: No adenopathy. There is left retroperitoneal fat stranding with numerous foci of gas extending along the left lower retroperitoneum to the level of the pelvis. There is mild thickening of the left lateral abdominal wall musculature. The fat stranding and gas extends to the left lateral aspect of the lumbar spine at the site of L2-L4 lateral fusion plate and screws. BOWEL: The stomach is unremarkable. Small bowel is non-dilated. Appendix not definitely visualized. No pericecal inflammation. Large bowel is normal. PERITONEUM: No ascites or free air. No fluid collection. BODY WALL: Small fat containing periumbilical hernia. MUSCULOSKELETAL: Postsurgical change related to L4-S1 posterior spinal fusion and laminectomy with intact appearing hardware and similar alignment compared to 06/17/2024. Interval placement of left lateral interbody fusion device spanning L2-L3 and L3-L4 with mild overlying fat stranding/gas. Hardware appears intact. No fluid collection. Gas tracking along the left peritoneal surgical site without evidence of organized fluid collection. IMPRESSION: 1. Postsurgical change related to recent left lateral spinal fusion extending from L2-L4 with intact appearing hardware. Gas and fat stranding within the left retroperitoneal soft tissues compatible with recent surgery. No distinct organized fluid collection. 2. Hepatic steatosis and hepatomegaly. 3. Additional chronic/incidental findings described above. Signed by: Randy Painter 06/16/2025 3:11 AM Dictation workstation: [id number] [facility] CT Abdomen and Pelvis W cont rast Jose Angel 06-16-2025 1. Postsurgical judd ge related to recent left lateral spinal fusion extending from L2-L4 with intact appearing hardware. Gas and fat stranding within the left retroperitoneal soft tissues compatible with recent surgery. No distinct organized fluid collection. 2. Hepatic steatosis and hepatomegaly. 3. Additional chronic/incidental findings described above. Signed by: Randy Painter 06/16/2025 3:11 AM Dictation workstation: [id number] [facility] Interpreted By: Randy Painter, STUDY: CT ABDOMEN PELVIS W IV CONTRAST; 06/16/2025 2:47 am INDICATION: Signs/Symptoms:pain. COMPARISON: CT ABDOMEN PELVIS W IV CONTRAST 06/17/2024 ACCESSION NUMBER(S): [id number] ORDERING CLINICIAN: BREN KOWALSKI TECHNIQUE: Axial CT images of the abdomen and pelvis with coronal and sagittal reconstructed images obtained. 70 ML of Omnipaque 350 was administered intravenously without immediate complication. FINDINGS: LOWER CHEST: Mild subsegmental atelectasis. LIVER: Hepatomegaly measuring 18.5 cm craniocaudal. Hepatic hypoattenuation, likely secondary to steatosis. BILE DUCTS: Normal caliber. GALLBLADDER: No calcified stones. No wall thickening. PANCREAS: Within normal limits. SPLEEN: Within normal limits. ADRENALS: Within normal limits. KIDNEYS, URETERS, and BLADDER: Bilateral renal cysts and additional cortical hypodensities which are too small to characterize. No hydronephrosis or urinary calculi. Ureters are non-dilated. Urinary bladder within normal limits. REPRODUCTIVE: Calcified fundal uterine fibroid. VESSELS: Moderate atherosclerosis. No abdominal aortic aneurysm. RETROPERITONEUM and LYMPH NODES: No adenopathy. There is left retroperitoneal fat stranding with numerous foci of gas extending along the left lower retroperitoneum to the level of the pelvis. There is mild thickening of the left lateral abdominal wall musculature. The fat stranding and gas extends to the left lateral aspect of the lumbar spine at the site of L2-L4 lateral fusion plate and screws. BOWEL: The stomach is unremarkable. Small bowel is non-dilated. Appendix not definitely visualized. No pericecal inflammation. Large bowel is normal. PERITONEUM: No ascites or free air. No fluid collection. BODY WALL: Small fat containing periumbilical hernia. MUSCULOSKELETAL: Postsurgical change related to L4-S1 posterior spinal fusion and laminectomy with intact appearing hardware and similar alignment compared to 06/17/2024. Interval placement of left lateral interbody fusion device spanning L2-L3 and L3-L4 with mild overlying fat stranding/gas. Hardware appears intact. No fluid collection. Gas tracking along the left peritoneal surgical site without evidence of organized fluid collection. [facility] Randy Painter, DO - 06/16/2025 Interpreted By: Randy Painter, STUDY: CT ABDOMEN PELVIS W IV CONTRAST; 06/16/2025 2:47 am INDICATION: Signs/Symptoms:pain. COMPARISON: CT ABDOMEN PELVIS W IV CONTRAST 06/17/2024 ACCESSION NUMBER(S): [id number] ORDERING CLINICIAN: BREN KOWALSKI TECHNIQUE: Axial CT images of the abdomen and pelvis with coronal and sagittal reconstructed images obtained. 70 ML of Omnipaque 350 was administered intravenously without immediate complication. FINDINGS: LOWER CHEST: Mild subsegmental atelectasis. LIVER: Hepatomegaly measuring 18.5 cm craniocaudal. Hepatic hypoattenuation, likely secondary to steatosis. BILE DUCTS: Normal caliber. GALLBLADDER: No calcified stones. No wall thickening. PANCREAS: Within normal limits. SPLEEN: Within normal limits. ADRENALS: Within normal limits. KIDNEYS, URETERS, and BLADDER: Bilateral renal cysts and additional cortical hypodensities which are too small to characterize. No hydronephrosis or urinary calculi. Ureters are non-dilated. Urinary bladder within normal limits. REPRODUCTIVE: Calcified fundal uterine fibroid. VESSELS: Moderate atherosclerosis. No abdominal aortic aneurysm. RETROPERITONEUM and LYMPH NODES: No adenopathy. There is left retroperitoneal fat stranding with numerous foci of gas extending along the left lower retroperitoneum to the level of the pelvis. There is mild thickening of the left lateral abdominal wall musculature. The fat stranding and gas extends to the left lateral aspect of the lumbar spine at the site of L2-L4 lateral fusion plate and screws. BOWEL: The stomach is unremarkable. Small bowel is non-dilated. Appendix not definitely visualized. No pericecal inflammation. Large bowel is normal. PERITONEUM: No ascites or free air. No fluid collection. BODY WALL: Small fat containing periumbilical hernia. MUSCULOSKELETAL: Postsurgical change related to L4-S1 posterior spinal fusion and laminectomy with intact appearing hardware and similar alignment compared to 06/17/2024. Interval placement of left lateral interbody fusion device spanning L2-L3 and L3-L4 with mild overlying fat stranding/gas. Hardware appears intact. No fluid collection. Gas tracking along the left peritoneal surgical site without evidence of organized fluid collection. IMPRESSION: 1. Postsurgical change related to recent left lateral spinal fusion extending from L2-L4 with intact appearing hardware. Gas and fat stranding within the left retroperitoneal soft tissues compatible with recent surgery. No distinct organized fluid collection. 2. Hepatic steatosis and hepatomegaly. 3. Additional chronic/incidental findings described above. Signed by: Randy Painter 06/16/2025 3:11 AM Dictation workstation: [id number] [facility] Work Phone: Radiology Study observation (narrative) [facility] Work Phone: CT Abdomen and Pelvis W cont rast IVOrdered By: Randy Painter on 06-16-2025 [facility] Work Phone: Comprehensive metabolic 2000 panelon 06-16-2025 Albumin BCP dye [Mass/Vol] 3.7 g/dL 3.4 - 5.0 g/dL [facility] ALP [Catalytic activity/Vol] 54 U/L 33 - 110 U/L [facility] ALT With P-5'-P [Catalytic activity/Vol] 17 U/L 7 - 45 U/L [facility] Comment on above: Patients treated wit h Sulfasalazine may generate falsely decreased results for ALT. Anion gap [Moles/Vol] 13 mmol/L [facility] AST With P-5'-P [Catalytic activity/Vol] 16 U/L 9 - 39 U/L [facility] Bilirubin [Mass/Vol] 0.3 mg/dL 0.0 - 1 .2 mg/dL [facility] Calcium [Mass/Vol] 8.9 mg/dL 8.6 - 10. 3 mg/dL [facility] Chloride [Moles/Vol] 91 mmol/L Low 98 - 10 7 mmol/L [facility] CO2 [Moles/Vol] 26 mmol/L 21 - 32 mmol/L [facility] Comment on above: Bicarbonate results may be falsely elevated when Lactate Dehydrogenase (LDH) concentrations exceed 2,000 U/L due to a temporary reagent manufacturing issue. If significantly elevated LDH levels are suspected, interpret bicarbonate results with caution, correlate with the patient s clinical status, and consider confirming CO2 values using a blood gas analyzer. Creatinine [Mass/Vol] 0.43 mg/dL Low 0.50 - 1.05 mg/dL [facility] eGFR - PINF [facility] Comment on above: Calculations of nick mated GFR are performed using the 2020 CKD-EPI Study Refit equation without the race variable for the IDMS-Traceable creatinine methods. https://jasn.asnjournals.org/content/early/ASN.7729142 988 Glucose [Mass/Vol] 209 mg/dL High 74 - 99 mg/dL [facility] Interpretation and review of laboratory results Abnormal [facility] Potassium [Moles/Vol] 3.7 mmol/L 3.5 - 5.3 mmol/L [facility] Protein [Mass/Vol] 6.4 g/dL 6.4 - 8.2 g/dL [facility] Sodium [Moles/Vol] 126 mmol/L Low 136 - 145 mmol/L [facility] Urea nitrogen [Mass/Vol] 9 mg/dL 6 - 23 mg/dL [facility] Albumin BCP dye [Mass/Vol] 3.7 g/dL Normal 3.4-5.0 [facility] Comment on above: Performed By: #### 2 4323-8 #### VELIA HAUSER ([id number]) [facility] ([facility]) [address] [place] [address] 41628 ALP [Catalytic activity/Vol] 54 U/L Normal 33-110 [facility] Comment on above: Performed By: #### 2 4323-8 #### VELIA HAUSER ([id number]) [facility] ([facility]) [address] [place] [address] 65080 ALT With P-5'-P [Catalytic activity/Vol] 17 U/L Normal 7-45 [facility] Comment on above: Result Comment: Sharmila ents treated with Sulfasalazine may generate falsely decreased results for ALT. Performed By: #### 2 4323-8 #### VELIA HAUSER ([id number]) [facility] ([facility]) [address] [place] [address] Anion gap [Moles/Vol] 13 mmol/L Normal [facility] Comment on above: Performed By: #### 2 4323-8 #### VELIA HAUSER ([id number]) [facility] ([facility]) [address] [place] [address] AST With P-5'-P [Catalytic activity/Vol] 16 U/L Normal 9-39 [facility] Comment on above: Performed By: #### 2 4322-8 #### VELIA HAUSER ([id number]) [facility] ([facility]) [address] [place] [address] 87643 Bilirubin [Mass/Vol] 0.3 mg/dL Normal 0.0-1.2 [facility] Comment on above: Performed By: #### 2 4322-8 #### VELIA HAUSER ([id number]) [facility] ([facility]) [address] [place] [address] 38429 Calcium [Mass/Vol] 8.9 mg/dL Normal 8.6-10.3 [facility] Comment on above: Performed By: #### 2 4323-8 #### VELIA HAUSER ([id number]) [facility] ([facility]) [facility] [place] [address] Chloride [Moles/Vol] 91 mmol/L Low 98-107 [facility] Comment on above: Performed By: #### 2 4323-8 #### VELIA HAUSER ([id number]) [facility] ([facility]) [facility] [place] [address] CO2 [Moles/Vol] 26 mmol/L Normal 21-32 [facility] Comment on above: Result Comment: Bica rbonate results may be falsely elevated when Lactate Dehydrogenase (LDH) concentrations exceed 2,000 U/L due to a temporary reagent manufacturing issue. If significantly elevated LDH levels are suspected, interpret bicarbonate results with caution, correlate with the patient's clinical status, and consider confirming CO2 values using a blood gas analyzer. Performed By: #### 2 4323-8 #### VELIA HAUSER ([id number]) [facility] ([facility]) [address] [place] [address] 12984 Creatinine [Mass/Vol] 0.43 mg/dL Low 0.50-1.05 [facility] Comment on above: Performed By: #### 2 4323-8 #### VELIA HAUSER ([id number]) [facility] ([facility]) [address] [place] [address] 39141 Glomerular filtration rate >90 Normal >60 [facility] Comment on above: Result Comment: Calc ulations of estimated GFR are performed using the 2020 CKD-EPI Study Refit equation without the race variable for the IDMS-Traceable creatinine methods. https://jasn.asnjournals.org/content/early//ASN.2313897 988 Performed By: #### 2 432-8 #### VELIA HAUSER ([id number]) [facility] ([facility]) [address] [place] [address] 11622 Glucose [Mass/Vol] 209 mg/dL High 74-99 [facility] Comment on above: Performed By: #### 2 432-8 #### VELIA HAUSER ([id number]) [facility] ([facility]) [address] [place] [address] 03732 Potassium [Moles/Vol] 3.7 mmol/L Normal 3.5-5.3 [facility] Comment on above: Performed By: #### 2 4323-8 #### VELIA HAUSER ([id number]) [facility] ([facility]) [address] [place] [address] 58567 Protein [Mass/Vol] 6.4 g/dL Normal 6.4-8.2 [facility] Comment on above: Performed By: #### 2 4323-8 #### VELIA HAUSER ([id number]) [facility] ([facility]) [address] [place] [address] 72253 Sodium [Moles/Vol] 126 mmol/L Low 136-145 [facility] Comment on above: Performed By: #### 2 4323-8 #### VELIA HAUSER ([id number]) [facility] ([facility]) [address] [place] [address] Urea nitrogen [Mass/Vol] 9 mg/dL Normal 6-23 [facility] Comment on above: Performed By: #### 2 4323-8 #### VELIA HAUSER ([id number]) [facility] ([facility]) [address] [place] [address] Lactateon 06-16-2025 Lactate [Moles/Vol] 1.9 mmol/L 0.4 - 2. 0 mmol/L [facility] Lactate [Moles/Vol] 1.9 mmol/L Normal 0.4-2.0 [facility] Comment on above: Order Comment: Venip uncture immediately after or during the administration of Metamizole may lead to falsely low results. Testing should be performed immediately prior to Metamizole dosing. Performed By: #### 2 524-7 #### VELIA HAUSER ([id number]) [facility] ([facility]) [facility] [place] [address] Lactate [Moles/Vol]on 2024 Interpretation and review of laboratory results Normal [facility] Venipuncture immedia tely after or during the administration of Metamizole may lead to falsely low results. Testing should be performed immediately prior to Metamizole dosing. [facility] No Panel Informationon 06-16 Interpretation and review of laboratory results Abnormal [facility] Urinalysis complete W Reflex Culture panel (U)on 06-16-2025 Appearance (U) Clear Clear [facility] Bilirubin (U) [Mass/Vol] Negative NEGATIVE mg/dL [facility] Color (U) Light-Yellow Light-Yellow , Yellow, Dark-Yellow [facility] Glucose Auto test strip (U) [Mass/Vol] 200 (2+) Abnormal Normal mg/dL [facility] Ketones (U) [Mass/Vol] Negative NEGATIVE mg/dL [facility] Leukocyte esterase Auto test strip Ql (U) 75 Paulina/uL Abnormal NEGATIVE [facility] Nitrite Auto test strip Ql (U) Negative NEGATIVE [facility] pH (U) 7.0 [pH] 5.0, 5.5, 6.0, 6.5, 7.0, 7.5, 8.0 [facility] Protein (U) [Mass/Vol] 10 (TRACE) NEGATIVE, 10 (TRACE), 20 (TRACE) mg/dL [facility] RBC (U) [#/Vol] Negative NEGATIVE mg/dL [facility] Specific gravity (U) [Rel density] 1.011 1.005 - 1.035 [facility] Urobilinogen (U) [Mass/Vol] Normal Normal mg/dL [facility] Appearance (U) Clear Normal Clear [facility] Comment on above: Performed By: #### 5 8077-9 #### VELIA HAUSER ([id number]) [facility] ([facility]) [address] [place] [address] Bilirubin (U) [Mass/Vol] Negative Normal NEGATIVE [facility] Comment on above: Performed By: #### 5 8077-9 #### VELIA HAUSER ([id number]) [facility] ([facility]) [address] [place] [address] Color (U) Light-Yellow Normal Light-Yellow , Yellow, Dark-Yellow [facility] Comment on above: Performed By: #### 5 8077-9 #### VELIA HAUSER ([id number]) [facility] ([facility]) [address] [place] [address] Glucose Auto test strip (U) [Mass/Vol] 200 (2+) Abnormal Normal [facility] Comment on above: Performed By: #### 5 8077-9 #### VELIA HAUSER ([id number]) [facility] ([facility]) [address] [place] [address] Ketones (U) [Mass/Vol] Negative Normal NEGATIVE [facility] Comment on above: Performed By: #### 5 8077-9 #### VELIA HAUSER ([id number]) [facility] ([facility]) [address] [place] [address] Leukocyte esterase Auto test strip Ql (U) 75 Paulina/uL Abnormal NEGATIVE [facility] Comment on above: Performed By: #### 5 8077-9 #### VELIA HAUSER ([id number]) [facility] ([facility]) [address] [place] [address] 18729 Nitrite Auto test strip Ql (U) Negative Normal NEGATIVE [facility] Comment on above: Performed By: #### 5 8077-9 #### VELIA HAUSER ([id number]) [facility] ([facility]) [address] [place] [address] 40737 pH (U) 7.0 [pH] Normal 5.0, 5.5, 6.0, 6.5, 7.0, 7.5, 8.0 [facility] Comment on above: Performed By: #### 5 8077-9 #### VELIA HAUSER ([id number]) [facility] ([facility]) [address] [place] [address] 31586 Protein (U) [Mass/Vol] 10 (TRACE) Normal NEGATIVE, 10 (TRACE), 20 (TRACE) [facility] Comment on above: Performed By: #### 5 8077-9 #### VELIA HAUSER ([id number]) [facility] ([facility]) [address] [place] [address] 17863 RBC (U) [#/Vol] Negative Normal NEGATIVE [facility] Comment on above: Performed By: #### 5 8077-9 #### VELIA HAUSER ([id number]) [facility] ([facility]) [address] [place] [address] 72837 Specific gravity (U) [Rel density] 1.011 Normal 1.005-1.035 [facility] Comment on above: Performed By: #### 5 8077-9 #### VELIA HAUSER ([id number]) [facility] ([facility]) [address] [place] [address] 52965 Urobilinogen (U) [Mass/Vol] Normal Normal Normal [facility] Comment on above: Performed By: #### 5 8077-9 #### VELIA HAUSER ([id number]) [facility] ([facility]) [facility] [place] [address] Urinalysis microscopic panel Auto Ql (U)on 06-16-2025 Bacteria Auto (Urine sed) [#/Area] 1+ Abnormal NONE SEEN /HPF [facility] Crystals.amorphous Computer assisted (U) [#/Area] 1+ NONE, 1+, 2+ /HPF [facility] Epithelial cells.squamous Auto (Urine sed) [#/Area] 1-9 (SPARSE) Reference range not established. /HPF [facility] RBC Auto (Urine sed) [#/Area] 1-2 NONE, 1-2, 3-5 /HPF [facility] WBC Auto (Urine sed) [#/Area] 6-10 Abnormal 1-5, NONE /HPF [facility] Yeast.budding Computer assisted (U) [#/Area] PRESENT Abnormal NONE /HPF [facility] Bacteria Auto (Urine sed) [#/Area] 1+ /HPF Abnormal NONE SEEN [facility] Comment on above: Performed By: #### 5 3315-8 #### VELIA HAUSER ([id number]) [facility] ([facility]) [address] [place] [address] Crystals.amorphous Computer assisted (U) [#/Area] 1+ /HPF Normal NONE, 1+, 2+ [facility] Comment on above: Performed By: #### 5 3315-8 #### VELIA HAUSER ([id number]) [facility] ([facility]) [address] [place] [address] Epithelial cells.squamous Auto (Urine sed) [#/Area] 1-9 (SPARSE) Normal Reference range not established. [facility] Comment on above: Performed By: #### 5 3315-8 #### VELIA HAUSER ([id number]) [facility] ([facility]) [address] [place] [address] RBC Auto (Urine sed) [#/Area] 1-2 Normal NONE, 1-2, 3-5 [facility] Comment on above: Performed By: #### 5 3315-8 #### VELIA HAUSER ([id number]) [facility] ([facility]) [address] [place] [address] WBC Auto (Urine sed) [#/Area] 6-10 Abnormal 1-5, NONE [facility] Comment on above: Performed By: #### 5 3315-8 #### VELIA HAUSER ([id number]) [facility] ([facility]) [facility] [place] [address] Yeast.budding Computer assisted (U) [#/Area] PRESENT Abnormal NONE [facility] Comment on above: Performed By: #### 5 3315-8 #### VELIA HAUSER ([id number]) [facility] ([facility]) [address] [place] [address] 50758 Basic Metabolic Profile (BMP )on 06-13-2025 BUN/CRE 18.9 RATIO Normal 10-20 [facility] Comment on above: Performed By: #### L 500.2500, L100.0100 ####[facility] [address] [place], [address] Calcium [Mass/Vol] 8.4 mg/dL Normal 7.6-11.0 [facility] Comment on above: Performed By: #### L 500.2500, L100.0100 ####[facility] [address] [place], [address] Chloride [Moles/Vol] 88 mmol/L Low 98-108 [facility] Comment on above: Performed By: #### L 500.2500, L100.0100 ####[facility] [address] [place], [address] CO2 [Moles/Vol] 23.2 mmol/L Normal 21.0-32.0 [facility] Comment on above: Performed By: #### L 500.2500, L100.0100 ####[facility] [address] [place], [address] Creatinine [Mass/Vol] 0.57 mg/dL Low 0.70-1.20 [facility] Comment on above: Performed By: #### L 500.2500, L100.0100 ####[facility] [address] [place], [address] ECRCL 134.48 ml/min Normal 50-250 [facility] Comment on above: Performed By: #### L 500.2500, L100.0100 ####[facility] [address] [place], [address] GAP 12 Normal 5-15 [facility] Comment on above: Performed By: #### L 500.2500, L100.0100 ####[facility] [address] [place], [address] GFR/1.73 sq M.predicted among non-blacks MDRD (S/P/Bld) [Vol rate/Area] 106 mL/min/{1.73_m2} Normal >60 [facility] Comment on above: Result Comment: mL/m in/1.73m2 CKD-EPI Creatinine Equation (2020) Performed By: #### L 500.2500, L100.0100 ####[facility] [address] [place], [address] Glucose [Mass/Vol] 181 mg/dL High 70-99 [facility] Comment on above: Performed By: #### L 500.2500, L100.0100 ####[facility] [address] [place], [address] Potassium [Moles/Vol] 3.6 mmol/L Normal 3.3-5.1 [facility] Comment on above: Performed By: #### L 500.2500, L100.0100 ####[facility] [address] [place], [address] Sodium [Moles/Vol] 123 mmol/L Low 133-145 [facility] Comment on above: Performed By: #### L 500.2500, L100.0100 ####[facility] [address] [place], [address] Urea nitrogen [Mass/Vol] 11 mg/dL Normal 4-19 [facility] Comment on above: Performed By: #### L 500.2500, L100.0100 ####[facility] [address] [place], [address] Bedside Glucoseon 06-13-2025 FINGERSTICK GLU 234 mg/dL High 74-106 [facility] Comment on above: Result Comment: PARTH WERNER OF PATIENT CARE PER NURSING PROTOCOL Performed By: #### L 501.080 #### [facility] [address] [place], [address] CBC W/Diff, Automatedon Absolute Lymph 2.40 X10 3/uL Normal 0.83-4.51 [facility] Comment on above: Performed By: #### L 500.2500, L100.0100 #### [facility] [address] [place], [address] Absolute Neut 6.8 X10 3/uL Normal 2.0-7.7 [facility] Comment on above: Performed By: #### L 500.2500, L100.0100 #### [facility] [address] [place], [address] Basophils/100 WBC (Bld) 0.2 % Normal 0-1 [facility] Comment on above: Performed By: #### L 500.2500, L100.0100 #### [facility] [address] [place], [address] Eosinophils/100 WBC (Bld) 0.5 % Normal 0-5 [facility] Comment on above: Performed By: #### L 500.2500, L100.0100 #### [facility] [address] [place], [address] Erythrocyte distribution width (RBC) [Ratio] 12.0 % Normal 11.6-14.6 [facility] Comment on above: Performed By: #### L 500.2500, L100.0100 #### [facility] [address] [place], [address] Hematocrit (Bld) [Volume fraction] 32.8 % Low 37-47 [facility] Comment on above: Performed By: #### L 500.2500, L100.0100 #### [facility] [address] [place], [address] Hemoglobin (Bld) [Mass/Vol] 11.9 g/dL Low 12.0-15.0 [facility] Comment on above: Performed By: #### L 500.2500, L100.0100 #### [facility] [address] [place], [address] IG% 0.600 Normal 0.0-0.9 [facility] Comment on above: Result Comment: IG% - Immature Granulocytes (promyelocytes, myelocytes and metamyelocytes) > 1% indicates that a LEFT SHIFT is Present. Performed By: #### L 500.2500, L100.0100 #### [facility] [address] [place], [address] Lymphocytes/100 WBC (Bld) 23.5 % Normal 19-41 [facility] Comment on above: Performed By: #### L 500.2500, L100.0100 #### [facility] [address] [place], [address] MCH (RBC) [Entitic mass] 30.6 pg Normal 27.0-32.0 [facility] Comment on above: Performed By: #### L 500.2500, L100.0100 #### [facility] [address] [place], [address] MCHC (RBC) [Mass/Vol] 36.3 g/dL High 32-36 [facility] Comment on above: Performed By: #### L 500.2500, L100.0100 #### [facility] [address] [place], [address] MCV (RBC) [Entitic vol] 84.3 fL Normal 81-99 [facility] Comment on above: Performed By: #### L 500.2500, L100.0100 #### [facility] [address] [place], [address] Monocytes/100 WBC (Bld) 9.3 % Normal 0-10 [facility] Comment on above: Performed By: #### L 500.2500, L100.0100 #### [facility] [address] [place], [address] Neutrophils/100 WBC (Bld) 65.9 % Normal 47-70 [facility] Comment on above: Performed By: #### L 500.2500, L100.0100 #### [facility] [address] [place], [address] Nucleated RBC (Bld) [#/Vol] 0 10*3/uL Normal 0-5 [facility] Comment on above: Performed By: #### L 500.2500, L100.0100 #### [facility] [address] [place], [address] Platelet mean volume (Bld) [Entitic vol] 8.5 fL Normal 6.2-12.0 [facility] Comment on above: Performed By: #### L 500.2500, L100.0100 #### [facility] [address] [place], [address] Platelets (Bld) [#/Vol] 255 10*3/uL Normal 150-450 [facility] Comment on above: Performed By: #### L 500.2500, L100.0100 #### [facility] [address] [place], [address] RBC (Bld) [#/Vol] 3.89 10*6/uL Low 4.2-5.4 [facility] Comment on above: Performed By: #### L 500.2500, L100.0100 #### [facility] [address] [place], [address] RDW SD 36.9 fl Normal 35.1-43.9 [facility] Comment on above: Performed By: #### L 500.2500, L100.0100 #### [facility] [address] [place], [address] WBC (Bld) [#/Vol] 10.2 10*3/uL Normal 4.4-11.0 [facility] Comment on above: Performed By: #### L 500.2500, L100.0100 #### [facility] [address] [place], [address] Discharge Instructionon 11-0 Discharge Instruction [facility] Medical Records Department [address] [place] [address] Instructions for Home/Discharge Instructions 06/13/25 1151 MR#: [id number] Acct: [id number] Name: REINIER MENDOZA Rep #: [id number] : 1970 55 From: Maria Luisa BRENNAN PCP: REGGIE Arias Status:ADM ANSON Discharge Instructions DC O2, CPAP, BIPAP needs Home O2 Discharge instructions: No Follow Up Care Test Results: Test results from this visit will be discussed in further detail at your follow-up appointment, if applicable. Discharge Plan Admission Admit Date/Time: 06/12/25 12:04 Attending Provider: Yair Benedict Primary Care Provider: Suzanne Arroyo Consulting Providers: Kentrell Galindo Instructions Patient Instructions: Lumbar Fusion Dc Additional Instructions / Restrictions: Keep Tegaderm and gauze clean and dry. If Tegaderm is intact, okay to shower. After 5 days remove Tegaderm and gauze and cover with a Band-Aid. Replace Band-Aid daily thereafter. No bending lifting or twisting. Follow-up in clinic in 2 weeks. Discharge Orders/Prescriptions Prescriptions: New acetaminophen 500 mg Tablet 1,000 mg PO Q6H Qty: 30 0RF meloxicam 15 mg Tablet 15 mg PO DAILY Qty: 30 0RF methocarbamol 500 mg Tablet 750 mg PO TID PRN (Reason: Pain/spasms) Qty: 30 0RF oxycodone 5 mg Tablet 2.5 - 5 mg PO Q6H PRN (Reason: pain) 7 Days Qty: 28 0RF sennosides-docusate sodium [Stimulant Laxative Plus] 8.6-50 mg Tablet 2 tab PO BID PRN (Reason: constipation) Qty: 14 0RF Continued carvedilol 6.25 mg tablet 12.5 mg PO BID multivitamin Tablet 1 tab PO DAILY nifedipine 30 mg tablet extended release 90 mg PO DAILY turmeric root extract 500 mg capsule 1,000 mg PO BID magnesium 250 mg tablet 500 mg PO QHS metformin 500 mg tablet extended release 24 hr 1,000 mg PO BID melatonin 3 mg capsule 5 mg PO HS PRN (Reason: sleep) venlafaxine 150 mg capsule,extended release 24hr 150 mg PO DAILY 30 Days Qty: 30 2RF bupropion HCl 300 mg tablet extended release 24 hr 300 mg PO QAM 30 Days Qty: 30 2RF vitamin D3-vitamin K2 125 mcg (5,000 unit)-100 mcg capsule 1 cap PO DAILY omega 1-iaf-gej-fish oil [Fish Oil] 1,200 (144-216) mg capsule 2 cap PO DAILY INNO CLEANSE 2 cap PO DAILY pioglitazone 30 mg tablet 30 mg PO QHS aripiprazole 15 mg tablet 15 mg PO QHS valsartan [Diovan] 40 mg tablet 160 mg PO DAILY carbamazepine 200 mg tablet 300 mg PO BID 30 Days Qty: 90 2RF Held aspirin 81 mg tablet 81 mg PO DAILY Hold Instructions: Resume on 06/14/25. Discontinued meloxicam 7.5 mg tablet 7.5 mg PO DAILY Referrals / Follow Up: Suzanne Arroyo NP-C [Primary Care Provider, Family Practice] Disposition Disposition (needs filled in before D/C Order can be placed): Home, Self Care 06/13/25 1151 Maria Luisa BRENNAN CC: REGGIE Arroyo; Dr. Kentrell Galindo MD Signed [facility] Lumbar Spine 2 or 3 Viewson 06-13-2025 Lumbar Spine 2 or 3 Views [facility] Imaging Services [address] [place], [place] [address] Lumbar Spine 2 or 3 Views MR#: [id number] Acct: [id number] Name: REINIER MENDOZA Rep #: [id number] : 1970 F 55 From: Bren Alfonso MD PCP: REGGIE Arias Status: ADM ANSON Study: Lumbar Spine 2 or 3 Views Date of Exam: Exam# [id number] Ordering Dr: Maria Luisa Taylor EXAM: XR Lumbosacral Spine, 2 or 3 Views CLINICAL INDICATION: S/P LUMBAR FUSION TECHNIQUE: Frontal and lateral views of the lumbar spine and sacrum. COMPARISON: No relevant prior studies available. FINDINGS: VERTEBRAE: Unremarkable. No acute fracture. Normal alignment. SACRUM/COCCYX: Unremarkable as visualized. No acute fracture. DISC SPACES: Status post posterior fusion of L4-S1. Status post lateral fixation plate and screws to the L2-L4 with disc spaces. SOFT TISSUES: Unremarkable. RAD/Lumbar Spine 2 or 3 Views IMPRESSION: Postoperative changes as above. Reading Location[facility] CC: REGGIE Arroyo; MIKA Allen [employer] Supervisor: Signed Normal [facility] Bedside Glucoseon 06-12-2025 FINGERSTICK GLU 196 mg/dL High 74-106 [facility] Comment on above: Result Comment: PARTH GEMENT OF PATIENT CARE PER NURSING PROTOCOL Performed By: #### L 501.080 #### [facility] [address] [place], [address] FINGERSTICK GLU 231 mg/dL High 74-106 [facility] Comment on above: Result Comment: PARTH GEMENT OF PATIENT CARE PER NURSING PROTOCOL Performed By: #### L 501.080 #### [facility] [address] [place], [address] FINGERSTICK GLU 151 mg/dL High 74-106 [facility] Comment on above: Result Comment: PARTH WERNER OF PATIENT CARE PER NURSING PROTOCOL Performed By: #### L 501.080 #### [facility] [address] [place], [address] Consultation - Hospitaliston 06-12-2025 Consultation - Hospitalist [facility] Medical Records Department [address] [place] [address] Consultation - Hospitalist 06/12/25 1921 MR#: [id number] Acct: [id number] Name: REINIER MENDOZA Rep #: [id number] : 1970 55 From: Olayinka Becker DO PCP: REGGIE Arias Status:ADM ANSON Location: [place] [id number] Assessment Plan Assessment/Plan (1) Lumbar stenosis with neurogenic claudication: PLAN: Plan Patient is a 55-year-old female who presented to [facility] on 06/12/2025 for planned lumbar fusion procedure. Medicine consulted postoperatively for medical management. 1. Lumbar stenosis with neurogenic claudication, history of L4-S1 fusion ??? Orthopedic surgery primary. S/p L2-4 oblique lumbar interbody fusion procedure with Dr. Benedict on 06/12. Tolerated procedure well, no intraoperative complications noted. Postoperative pain control, DVT prophylaxis and further management per orthopedics. Follow-up a.m. labs. PT/OT/case management consulted. 2. Hypertension ??? Mildly hypertensive to the 130s to 140s systolic postoperatively. Okay to resume home Coreg, nifedipine, and valsartan. 3. Type 2 diabetes mellitus ??? A1c 6.4% on 06/01. Previous A1c's this year were between 7 to 8%. Blood glucose elevated to the 190s postoperatively presumed secondary to stress date. Patient preferred to hold off on POC glucose checks and sliding scale insulin while inpatient if possible as she notes her diabetes has been well-controlled with dietary changes recently. Will continue home metformin but hold home pioglitazone. Follow-up glucose on a.m. BMP tomorrow. Can order POC glucose checks and sliding scale insulin if needed. 4. Bipolar 1 disorder with insomnia ??? Stable. Continue home aripiprazole, bupropion, carbamazepine, venlafaxine and melatonin at night. 5. Recent history of hyponatremia ??? Sodium 128, chloride 95 on preoperative labs on 06/01. No labs prior to that available. Follow- up a.m. BMP tomorrow. 6. Class II obesity ??? BMI 37 on admit. Complicates hospital course and care. DVT prophylaxis: Per orthopedics Total clinical time spent by myself addressing the patient's medical issues, reviewing all the data, and collaborating with patient's care team: 39 minutes. HPI Consult Data Date of Consult: 06/12/25 HPI Narrative Reason for Consultation: Postoperative medical management HPI Narrative: REINIER MENDOZA, is a 55 F who presented to [facility] on 06/12/2025 for planned orthopedic procedure. Medicine consulted postoperatively for medical management. Patient had lumbar interbody fusion procedure done with Dr. Benedict today. Tolerated procedure well, no intraoperative complications noted. I saw the patient at bedside this evening. Patient was laying on her side in bed and appeared to be mildly uncomfortable. She noted moderate low back pain currently but stated she just been given a dose of pain medication for this and was hopeful it would kick in soon. She denied any other acute concerns currently. [facility] Medical History Lumbar stenosis with neurogenic claudication Obesity (BMI 30-39.9) Loss of hearing Wears glasses Post-menopausal Marijuana use Thyroid disease Ambulates with cane Walker as ambulation aid High cholesterol Back pain TIA (transient ischemic attack) Syncope Dietary restriction Vapes nicotine containing substance Former smoker CPAP (continuous positive airway pressure) dependence History of pain when walking History of echocardiogram Lumbar stenosis Cervical radiculopathy PTSD (post-traumatic stress disorder) Bipolar 1 disorder Vitamin D deficiency Neuropathy Hypertension Diabetes type 2, controlled Chronic bronchitis Arthritis Home Medications ???Medication ???Instructions ???Recorded ???Last Taken ???Type carvedilol 6.25 mg tablet 12.5 mg PO BID HEART 09/22/2211/01 History multivitamin 1 tab PO DAILY SUPPLEMENT 09/22/22 06/10/25 History aspirin 81 mg tablet 81 mg PO DAILY HEART HEALTH 06/10/25 History magnesium 250 mg tablet 500 mg PO QHS CRAMPS 11/20/2309/03 History nifedipine 30 mg tablet,extended 90 mg PO DAILY BP 11/20/23 5 History release turmeric root extract 500 mg 1,000 mg PO BID SUPPLEMENT 4 06/10/25 History capsule metformin 500 mg tablet,extended 1,000 mg PO BID DIABETES 12/17/23 06/11/25 History release 24 hr melatonin 3 mg capsule 5 mg PO HS PRN sleep 01/05/25/09/03 History bupropion HCl 300 mg 24 hr tablet, 300 mg PO QAM PTSD 30 days #30 t abs 05/23/25 06/11/25 Rx extended release venlafaxine 150 mg 150 mg PO DAILY BIPOLAR 30 days 06/12/25 Rx capsule,extended release 24 hr #30 caps INNO CLEANSE 2 cap PO DAILY FIBER 05/26/25 Unkn own History aripiprazol (more content not included)... Normal [facility] Lumbar Spine 2 or 3 Viewson 06-12-2025 Lumbar Spine 2 or 3 Views [facility] Imaging Services [address] [place], [place] [address] Lumbar Spine 2 or 3 Views MR#: [id number] Acct: [id number] Name: REINIER MENDOZA Rep #: [id number] : 1970 F 55 From: Bren Alfonso MD PCP: REGGIE Arias Status: ADM ANSON Study: Lumbar Spine 2 or 3 Views Date of Exam: Exam# [id number] Ordering Dr: Yair Benedict MD EXAM: XR Lumbosacral Spine, 2 or 3 Views CLINICAL INDICATION: ERAS, 360 LUMBAR FUSION L2-3, L3-4 TECHNIQUE: Frontal and lateral views of the lumbar spine and sacrum. COMPARISON: No relevant prior studies available. FINDINGS: A total of 8 fluoroscopic image were obtained. Total fluoroscopy time 31.3 seconds. Total radiation dose 27.9 mGy. RAD/Lumbar Spine 2 or 3 Views IMPRESSION: Fluoroscopic guidance was used intraoperatively. Please refer to the operative note for further details. Reading Location: [facility] CC: SUPERVISOR MAPPING-C Suzanne Arroyo; Dr. Yair Benedict MD Structural [employer] Supervisor: Signed Normal [facility] MR/POSTOP.ANEon 06-12-2025 MR/POSTOP.[facility] Medical Records Department [address] [place] [address] Anesthesia Postop Eval I 06/12/25 1215 MR#: [id number] Acct: [id number] Name: REINIER MENDOZA Rep #: [id number] : 1970 55 From: Olayinka Quinones CRNA PCP: CARLI AriasC Status:REG SDC Y Race: C Location: [place] [address] Anesthesia: Postop Eval I Current Vital Signs Temperature: 97.3 F Pulse Rate: 78 Blood Pressure: 137/81 Respiratory Rate: 16 Pulse Ox: 96 Assessment Airway patent: Yes Spontaneous unlabored respirations: Yes nausea: No Vomiting: No Anesthesia Complication: No Fluid Hydration Crystalloid volume administer (ml): 1,700 Total IV fluid infused: 1,700 Progress Note Anesthesia document: Postop Eval 1 completed: Yes 06/12/25 1216 Date Olayinka Quinones CRNA Cosigner Signature: Date CC: Signed [facility] MR/[id number] 06-12-2025 MR/POSTOPAN2 [facility] Medical Records Department [address] [place] [address] Anesthesia Postop Eval II 06/12/25 1842 MR#: [id number] Acct: [id number] Name: RENIIER MENDOZA Rep #: [id number] : 1970 55 From: Santos Milian CRNA PCP: REGGIE Arias Status:ADM ANSON Y Race: C Location: [facility] KD158-7 Anesthesia Postop Eval I Sum Postop Eval Completion status Anesthesia document: Postop Eval 1 completed: Yes Anesthesia Postop Eval I Summary Anesthesia Postop Eval I Summary: Anesthesia Postop Eval I: Assessment Summary Airway patent Yes 06/12/25 12:15 AGRICULTURAL EQUIPMENT DESIGN ENGINEER.ABAR Spontaneous unlabored Yes 06/12/25 12:15 AGRICULTURAL EQUIPMENT DESIGN ENGINEER.ABAR respirations Mental status Awake 06/12/25 12:56 nausea No 06/12/25 12:56 Vomiting No 06/12/25 12:56 Anesthesia Postop Eval I: Fluid Summary Crystalloid volume administer 1,700 06/12/25 12:15 AGRICULTURAL EQUIPMENT DESIGN ENGINEER.ABAR (ml) Colloids volume administered ( ml) Blood Product volume administered (ml) Total IV fluid infused 1,700 06/12/25 12:15 AGRICULTURAL EQUIPMENT DESIGN ENGINEER.ABAR Anesthesia Postop Eval I: Summary Notes Anesthesia Complication No 06/12/25 12:15 AGRICULTURAL EQUIPMENT DESIGN ENGINEER.ABAR Anesthesia Complication Comment: Post-operative progress note Anesthesia: Postop Eval II Evaluation Mental status: Awake and Calm Pain Level: 0 nausea: No Vomiting: No Progress Note Post-operative progress note: talked to pt regarding some tongue numbness she is c/o. gross motor intact, anterior portion of tongue numb per pt. observed patient talk and drink liquids without difficulty, reassured pt and will continue to monitor as needed. Complications Anesthesia Complication: No 06/12/25 1844 Date Santos Milian CRNA Cosigner Signature: Date CC: Signed Normal [facility] MR/POSTOPAN2 [facility] Medical Records Department [address] [place] [address] Anesthesia Postop Eval II 06/12/25 1256 MR#: [id number] Acct: [id number] Name: REINIER MENDOZA Rep #: [id number] : 1970 55 From: Alexander Levy MD PCP: REGGIE Arias Status:REG SDC Y Race: C Location: AC AC01-1 Anesthesia Postop Eval I Sum Postop Eval Completion status Anesthesia document: Postop Eval 1 completed: Yes Anesthesia Postop Eval I Summary Anesthesia Postop Eval I Summary: Anesthesia Postop Eval I: Assessment Summary Airway patent Yes 06/12/25 12:15 AGRICULTURAL EQUIPMENT DESIGN ENGINEER.ABAR Spontaneous unlabored Yes 06/12/25 12:15 AGRICULTURAL EQUIPMENT DESIGN ENGINEER.ABAR respirations Mental status nausea No 06/12/25 12:15 AGRICULTURAL EQUIPMENT DESIGN ENGINEER.ABAR Vomiting No 06/12/25 12:15 AGRICULTURAL EQUIPMENT DESIGN ENGINEER.ABAR Anesthesia Postop Eval I: Fluid Summary Crystalloid volume administer 1,700 06/12/25 12:15 AGRICULTURAL EQUIPMENT DESIGN ENGINEER.ABAR (ml) Colloids volume administered ( ml) Blood Product volume administered (ml) Total IV fluid infused 1,700 06/12/25 12:15 AGRICULTURAL EQUIPMENT DESIGN ENGINEER.ABAR Anesthesia Postop Eval I: Summary Notes Anesthesia Complication No 06/12/25 12:15 AGRICULTURAL EQUIPMENT DESIGN ENGINEER.ABAR Anesthesia Complication Comment: Post-operative progress note Anesthesia: Postop Eval II Evaluation Mental status: Awake Pain Level: 2 nausea: No Vomiting: No 06/12/25 1256 Date Alexander Alfaro Signature: Date CC: Signed Normal [facility] Operative Reporton 5 Operative Report [facility] Medical Records Department [address] [place] [address] Operative Report 06/12/25 1210 MR#: [id number] Acct: [id number] Name: REINIER MENDOZA Rep #: [id number] : 1970 55 From: Yair Benedict MD PCP: REGGIE Arias Status:REG [facility] Location: [facility]-1 Procedures Musculoskeletal 20xxx-29xxx: Other Procedure See Report Operative Report (Standard) Operative Information Date of Procedure: 06/12/25 Pre-Operative Diagnosis: L3-4 spondylolisthesis L2-4 disc degeneration, stenosis with neurogenic claudication, prior L4-S1 fusion Post-Operative Diagnosis: Same Surgery/Procedure Performed: L2-4 oblique lumbar interbody fusion, anterior instrumentation bushler: Yes Resident Services Director: Maria Luisa Taylor Tasks completed by bankruptcy legal assistant: Closing, Removing tissue, Implanting device, Hemostasis: Electrocautery and Retracting Type of Anesthesia: General RN Documented Start/Stop Times: Operation Date: 06/12/25 07:30 Case Time Into Pre-Op 06/12/25 05:40 Out of Pre-Op 06/12/25 07:51 Anesthesia Start 06/12/25 07:58 Into Room 06/12/25 07:58 Procedure Start 06/12/25 08:44 Procedure End 06/12/25 11:58 Anesthesia End 06/12/25 12:05 Out of Room 06/12/25 12:05 Procedure Start Time: 08:44 Procedure Stop Time: 11:58 Select all DRAINS/GRAFTS/IMPLANTS that apply: Graft Graft details: Allograft cancellous chips, autologous bone marrow aspirate from left iliac crest and Implanted device Implanted device details: DePuy cougar lateral lumbar interbody cage???peek, 4 web 2 hole plate x 2 Estimated Blood Loss: 50 cc Specimen collected: No Description of surgery: Preoperative diagnosis: L3-4 spondylolisthesis, L2-4 disc degeneration, stenosis with neurogenic claudication, prior L4-S1 fusion Postoperative diagnosis: Same Name of procedures L2-4 oblique lumbar interbody fusion (OLIF), anterior instrumentation, minimally invasive left sided approach, lateral decubitus: ??? L2-3 anterolateral spinal fusion 24798 ??? L3-4 anterolateral fusion 92776/51 ??? L2-3 insertion of cage 11161 ??? L3-4 insertion of cage 22107/51 . L2-3 anterior instrumentation 70077 . L3-4 anterior instrumentation 28727/51 ??? Bone graft aspirate left iliac crest separate incision ??? Allograft cancellous chips Attending Surgeon: Dr. Yair Benedict Estimated blood loss: 50 mL Anesthesia: General Complications: None Indications: Patient is a 55-year-old pleasant lady who has had a long history of low back pain and right worse than left lower extremity radiation, difficulty walking distances, baseline right partial foot drop. Xrays MRI revealed L2-4 disc degeneration with stenosis, L3-4 spondylolisthesis, prior L4-S1 fusion. CT confirmed adequate fusion L4-S1. After undergoing a prolonged period of nonoperative treatment, the patient elected to undergo surgical decompression fusion. All surgical options were discussed with the patient including anterior and posterior approaches. Due to a very old posterior system, decision was made to perform an anterior stand-alone fusion with indirect decompression. All risks and benefits associated with the procedure were explained to the patient. The risks include but are not limited to infection, bleeding, injury to nerves and vessels including major vessels like IVC and aorta, persistent paresthesia, persistent pain, dural tear, need for further procedures, adjacent segment degeneration, pseudoarthrosis, hardware failure, retrograde ejaculation, paralytic ileus, etc. Procedure: The patient was identified in the preoperative holding suite using Unique patient identifiers. Skin was marked, consent was reviewed, and all questions were answered. The patient was then brought back to the operative room. A surgical timeout was performed to make sure correct procedure was being done on the correct patient and all operative room staff were on the same page. General endotracheal anesthesia was then given to the patient. Servin catheter was inserted. The patient was then carefully positioned in right lateral decubitus position with the left side up on a regular OR table. Axillary roll was placed and all bony prominences were well- padded. Hip positioners were placed in the posterior buttocks and anterior sternal area. The surgical area was prepped and draped in usual fashion. Preoperative antibiotic was injected IV as preoperative antibiotic. A final timeout was then again done just before starting the procedure. A 2 inch incision oblique was taken in the left lower quadrant of the abdomen 2 fingerbreadths away from the iliac crest and the lower ribs. Sharp dissection with Bovie was carried out up to the fascia covering the external oblique. The external oblique, internal oblique and transversus abdominis muscles were split along the muscle fi (more content not included)... Normal [facility] CBC (INCLUDES DIFF/PLT)on Basophils (Bld) [#/Vol] 0.03 10*3/uL Normal 0-200 [facility] Comment on above: Performed By: #### 9 [id number], 5893 #### [facility] [address], [address] [place] [id number] [employer] Supervisor: Fahad Moore MD Basophils/100 WBC (Bld) 0.4 % Normal [facility] Comment on above: Performed By: #### 9 2664, 6399 #### [facility] [place] [address] [employer] Supervisor: Fahad Moore MD Eosinophils (Bld) [#/Vol] 0.133 10*3/uL Normal 15-500 [facility] Comment on above: Performed By: #### 9 2664, 6399 #### [facility] of [address], [address] [place] [address] [employer] Supervisor: Fahad Moore MD Eosinophils/100 WBC (Bld) 1.8 % Normal [facility] Comment on above: Performed By: #### 9 844, 6399 #### [facility] [place] [address] [employer] Supervisor: Fahad Moore MD Erythrocyte distribution width (RBC) [Ratio] 13.0 % Normal 11.0-15.0 [facility] Comment on above: Performed By: #### 9 306, 6399 #### [facility] [place] [address] [employer] Supervisor: Fahad Moore MD Hematocrit (Bld) [Volume fraction] 40.3 % Normal 35.0-45.0 [facility] Comment on above: Performed By: #### 9 397, 6399 #### [facility] [place] [address] [employer] Supervisor: Fahad Moore MD Hemoglobin (Bld) [Mass/Vol] 13.6 g/dL Normal 11.7-15.5 [facility] Comment on above: Performed By: #### 9 336, 6399 #### [facility] [place] [address] [employer] Supervisor: Fahad Moore MD Lymphocytes (Bld) [#/Vol] 2.19 10*3/uL Normal 850-3900 [facility] Comment on above: Performed By: #### 9 985, 6399 #### [facility] [place] [address] [employer] Supervisor: Fahad Moore MD Lymphocytes/100 WBC (Bld) 29.6 % Normal [facility] Comment on above: Performed By: #### 9 953, 6399 #### [facility] [place] [address] [employer] Supervisor: Fahad Moore MD MCH (RBC) [Entitic mass] 30.5 pg Normal 27.0-33.0 [facility] Comment on above: Performed By: #### 9 287, 6399 #### [facility] [place] [address] [employer] Supervisor: Fahad Moore MD MCHC (RBC) [Mass/Vol] 33.7 g/dL Normal 32.0-36.0 [facility] Comment on above: Result Comment: For adults, a slight decrease in the calculated MCHC value (in the range of 30 to 32 g/dL) is most likely not clinically significant; however, it should be interpreted with caution in correlation with other red cell parameters and the patient's clinical condition. Performed By: #### 9 180, 6399 #### [facility] [place] [address] [employer] Supervisor: Fahad Moore MD MCV (RBC) [Entitic vol] 90.4 fL Normal 80.0-100.0 [facility] Comment on above: Performed By: #### 9 398, 6399 #### [facility] [place] [address] [employer] Supervisor: Fahad Moore MD Monocytes (Bld) [#/Vol] 0.57 10*3/uL Normal 200-950 [facility] Comment on above: Performed By: #### 9 308, 6399 #### [facility] [place] [address] [employer] Supervisor: Fahad Moore MD Monocytes/100 WBC (Bld) 7.7 % Normal [facility] Comment on above: Performed By: #### 9 2664, 6399 #### [facility] of [address], [address] [place] [address] [employer] Supervisor: Fahad Moore MD Neutrophils (Bld) [#/Vol] 4.477 10*3/uL Normal 8999-2804 [facility] Comment on above: Performed By: #### 9 2664, 6399 #### [facility] of [address], [address] [place] [address] [employer] Supervisor: Fahad Moore MD Neutrophils/100 WBC (Bld) 60.5 % Normal [facility] Comment on above: Performed By: #### 9 2664, 6399 #### [facility] [place] [address] [employer] Supervisor: Fahad Moore MD Platelet mean volume (Bld) [Entitic vol] 9.4 fL Normal 7.5-12.5 [facility] Comment on above: Performed By: #### 9 2664, 6399 #### [facility] of [address], [address] [place] [address] [employer] Supervisor: Fahad Moore MD Platelets (Bld) [#/Vol] 311 10*3/uL Normal 140-400 [facility] Comment on above: Performed By: #### 9 2664, 6399 #### [facility] [place] [address] [employer] Supervisor: Fahad Moore MD RBC (Bld) [#/Vol] 4.46 10*6/uL Normal 3.80-5.10 [facility] Comment on above: Performed By: #### 9 2664, 6399 #### [facility] [place] [address] [employer] Supervisor: Fahad Moore MD WBC (Bld) [#/Vol] 7.4 10*3/uL Normal 3.8-10.8 [facility] Comment on above: Performed By: #### 9 2664, 6399 #### [facility] of [address], [address] [place] [address] [employer] Supervisor: Fahad Moore MD COMPREHENSIVE METABOLIC PANE L W/ANION GAPon 06-08-2025 Albumin [Mass/Vol] 4.4 g/dL Normal 3.6-5.1 [facility] Comment on above: Performed By: #### 9 4825, 6399 #### [facility] of [address], [address] [place] [address] [employer] Supervisor: Fahad Moore MD ALP [Catalytic activity/Vol] 54 U/L Normal 37-153 [facility] Comment on above: Performed By: #### 9 508, 6399 #### [facility] of [address], [address] [place] [address] [employer] Supervisor: Fahad Moore MD ALT [Catalytic activity/Vol] 18 U/L Normal 6-29 [facility] Comment on above: Performed By: #### 9 109, 6399 #### [facility] of [address], [address] [place] [address] [employer] Supervisor: Fahad Moore MD AST [Catalytic activity/Vol] 16 U/L Normal 10-35 [facility] Comment on above: Performed By: #### 9 963, 6399 #### [facility] of [address], [address] [place] [address] [employer] Supervisor: Fahad Moore MD Bilirubin [Mass/Vol] 0.4 mg/dL Normal 0.2-1.2 [facility] Comment on above: Performed By: #### 9 378, 6399 #### [facility] of [address], [address] [place] [address] [employer] Supervisor: Fahad Moore MD Calcium [Mass/Vol] 9.6 mg/dL Normal 8.6-10.4 [facility] Comment on above: Performed By: #### 9 555, 6399 #### [facility] of [address], [address] [place] [address] [employer] Supervisor: Fahad Moore MD Chloride [Moles/Vol] 93 mmol/L Low 98-110 [facility] Comment on above: Performed By: #### 9 6445, 6399 #### [facility] [address], [address] [place] [address] [employer] Supervisor: Fahad Moore MD CO2 [Moles/Vol] 27 mmol/L Normal 20-32 [facility] Comment on above: Performed By: #### 9 4175, 6399 #### [facility] [place] [address] [employer] Supervisor: Fahad Moore MD Creatinine [Mass/Vol] 0.52 mg/dL Normal 0.50-1.03 [facility] Comment on above: Performed By: #### 9 0955, 6399 #### [facility] [place] [address] [employer] Supervisor: Fahad Moore MD ELECTROLYTE BALANCE 10 mmol/L (calc) Normal 7-17 [facility] Comment on above: Performed By: #### 9 291, 6399 #### [facility] [place] [address] [employer] Supervisor: Fahad Moore MD GFR/1.73 sq M.predicted among non-blacks MDRD (S/P/Bld) [Vol rate/Area] 109 mL/min/{1.73_m2} Normal > OR = 60 [facility] Comment on above: Performed By: #### 9 2095, 6399 #### [facility] [place] [address] [employer] Supervisor: Fahad Moore MD Glucose [Mass/Vol] 144 mg/dL High 65-99 [facility] Comment on above: Result Comment: Fasting reference interval For someone without known diabetes, a glucose value >125 mg/dL indicates that they may have diabetes and this should be confirmed with a follow-up test. Performed By: #### 9 026, 6399 #### [facility] [address], [address] [place] [address] [employer] Supervisor: Fahad Moore MD Potassium [Moles/Vol] 4.4 mmol/L Normal 3.5-5.3 [facility] Comment on above: Performed By: #### 9 2665, 6399 #### [facility] [address], [address] [place] [address] [employer] Supervisor: Fahad Moore MD Protein [Mass/Vol] 7.1 g/dL Normal 6.1-8.1 [facility] Comment on above: Performed By: #### 9 2665, 6399 #### [facility] of [address], [address] [place] [address] [employer] Supervisor: Fahad Moore MD Sodium [Moles/Vol] 130 mmol/L Low 135-146 [facility] Comment on above: Performed By: #### 9 2665, 6399 #### [facility] [address], [address] [place] [address] [employer] Supervisor: Fahad Moore MD Urea nitrogen [Mass/Vol] 15 mg/dL Normal 7-25 [facility] Comment on above: Performed By: #### 9 2665, 6399 #### [facility] [address], [address] [place] [address] [employer] Supervisor: Fahad Moore MD MR/PAT.JAE 06-08-2025 MR/PAT.JAE [facility] Medical Records Department [address] [place] [address] PAT - Anesthesia 06/08/25 1632 MR#: [id number] Acct: [id number] Name: REINIER MENDOZA Rep #: [id number] : 1970 55 From: Stephen Martin MD PCP: REGGIE Arias Status:PRE [facility] [place] Race: C [place] [facility] [place] Pre-Assessment Diagnosis/Proposed Procedure Planned Operative Procedure(s): 360 LUMBAR FUSION L2-L3 L3-4 WITH REVISION OF POSTERIOR INSTRUMENTATION L2-3 L3-4 L4-5 L5-S1 REMOVAL OF PREVIOUS HARDWARE Anesthesia History Anesthesia History - site leasing agent: Anesthesia History - site leasing agent Hx Hospitalization No 05/26/25 10:10 Any Problems With Anesthesia No 05/26/25 10:10 Cholinesterase deficiency No 05/26/25 10:10 You/Your Family Experience No 05/26/25 10:10 fever (hyperthermia) with Relationship Recent Exposure to Contagious Disease Does patient have nerve No 05/26/25 10:10 stimulator Patient instructed to have device shut off --Does patient have Pacemaker or ICD? When Was Last Pacemaker Check QUESTION #4 FULL TEXT: You/Your Family Experience fever (hyperthermia) with Anesthesia Last Oral Intake Last Oral intake: Last Oral Intake NPO since Meds taken in AM with sips of water? Meds patient instructed to take am of surgery PONV PONV - site leasing agent: PONV - site leasing agent Female Yes 05/26/25 10:10 HX of Motion Sickness Yes 05/26/25 10:10 HX of N/V After Surgery No 05/26/25 10:10 Non-Smoker Yes 05/26/25 10:10 Duration of Surgery greater Yes 05/26/25 10:10 than 60 minutes Number of Risk Factors 4 05/26/25 10:10 PONV Score Severe Risk 05/26/25 10:10 Height Weight Height Weight: Anesthesia: Height Weight Height 5 ft 6.5 in 03/23/25 13:41 Respiratory Assessment Respiratory Assessment - site leasing agent: Respiratory Tract Infection Hx - site leasing agent Hx Respiratory Tract Infection No 05/26/25 10:10 STOP Sleep Apnea STOP Sleep Apnea - site leasing agent: STOP Sleep Apnea - site leasing agent Hx Hypertension Yes: CONTROLLED WITH MEDS 05/26/25 10:10 Hx Sleep Apnea Yes 05/26/25 10:10 CPAP Yes 05/26/25 10:10 BIPAP No 05/26/25 10:10 Do you snore loudly (louder than talking or can be heard Do you often feel tired/ fatigued/ sleepy during daytime? Has anyone observed you stop breathing during sleep? STOP Results Positive 05/26/25 10:10 QUESTION #5 FULL TEXT : Do you snore loudly (louder than talking or can be heard through closed doors)? 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 Specify any problems Hx of Preganancy in last 3 No 05/26/25 10:10 Months Nurse Filling Out Transfusion DSCHRIBER 05/26/25 10:10 Questions: Date: 05/26/25 05/26/25 10:10 Time: 10:12 05/26/25 10:10 Patient unable to answer at this time (ie. confused, unrespo /Reproduction History /Reproductive History - site leasing agent: /Reproductive Hx- site leasing agent Hx Now No 05/26/25 10:10 Gestational Age (in weeks): EDC: Hx Hx Para Hx Section SAB No 05/26/25 10:10 PFSH Medical History (Updated 06/08/25 @ 15:43 by Karen Henry, [place]) Lumbar stenosis with neurogenic claudication Obesity (BMI 30-39.9) Loss of hearing Wears glasses Post-menopausal Marijuana use Thyroid disease Ambulates with cane Walker as ambulation aid High cholesterol Back pain TIA (transient ischemic attack) Syncope Dietary restriction Vapes nicotine containing substance Former smoker CPAP (continuous positive airway pressure) dependence History of pain when walking History of echocardiogram Lumbar stenosis Cervical radiculopathy PTSD (post-traumatic stress disorder) Bipolar 1 disorder Vitamin D deficiency Neuropathy Hypertension Diabetes type 2, controlled Chronic bronchitis Arthritis Home Medications ???Medication ???Instructions ???Recorded ? (more content not included)... Normal [facility] Orthopedic Visit Reporton Orthopedic Visit Report [facility] [address] [place] [address] OFFICE VISIT Date of Service: 06/08/25 MR#: [id number] Acct: [id number] Name: REINIER MENDOZA Rep #: [id number] : 1970 Provider: Dr. Yair Benedict MD Age/Sex: 55/F Location: [facility] Status: Signed Intake Vital Signs 03/23/25 13:41 05/23/25 13:49 06/08/25 14:55 Height 5 ft 6.5 in 5 ft 6.5 in 5 ft 6.5 in Weight: 235 lb 2 oz 236 lb BMI 37.3 37.5 Intake Visit Reasons: lumbar spine Chief Complaint: Lumbar spine pre op Accompanied by: Self Is patient in pain?: Yes Pain scale (1-10): 5 Allergies azithromycin Allergy (Mild, Verified 06/08/25 14:59) Hives Sulfa (Sulfonamide Antibiotics) Allergy (Mild, Verified 06/08/25 14:59) Other Medications ???Medication ???Instructions ???Recorded ???Confirmed ???Type carvedilol 6.25 mg tablet 12.5 mg PO BID HEART 09/22/2205/12 History losartan 100 mg tablet 100 mg PO DAILY BP 09/22/22 History multivitamin 1 tab PO DAILY SUPPLEMENT 09/22/22 06/08/25 History aspirin 81 mg tablet 81 mg PO DAILY HEART HEALTH 06/08/25 History magnesium 250 mg tablet 500 mg PO QHS CRAMPS 11/20/2305/12 History nifedipine 30 mg tablet,extended 90 mg PO DAILY BP 11/20/23 5 History release turmeric root extract 500 mg 1,000 mg PO BID SUPPLEMENT 4 06/08/25 History capsule metformin 500 mg tablet,extended 1,000 mg PO BID DIABETES 12/17/23 06/08/25 History release 24 hr melatonin 3 mg capsule 5 mg PO HS PRN sleep 01/05/2505/12 History bupropion HCl 300 mg 24 hr tablet, 300 mg PO QAM PTSD 30 days #30 t abs 05/23/25 06/08/25 Rx extended release venlafaxine 150 mg 150 mg PO DAILY BIPOLAR 30 days 06/08/25 Rx capsule,extended release 24 hr #30 caps INNO CLEANSE 2 cap PO DAILY FIBER 05/26/2505/12 History NMNH 2 cap PO DAILY SUPPLEMENT 05/26/25 06/08/25 History aripiprazole 15 mg tablet 15 mg PO QHS BIPOLAR 05/26/25 10 History diclofenac potassium 50 mg tablet 50 mg PO TID PRN pain 05/26/25 History omega 1-lyh-dyb-fish oil 1,200 mg 2 cap PO DAILY SUPPLEMENT 5 06/08/25 History (144 mg-216 mg) capsule (Fish Oil) pioglitazone 30 mg tablet 30 mg PO QHS DIABETES 05/26/25 History vitamin D3 125 mcg (5,000 1 cap PO DAILY SUPPLEMENT 05/26/25 06/08/25 History unit)-vitamin K2 100 mcg capsule carbamazepine 200 mg tablet 300 mg (1.5 x 200 mg) PO BID 05/3106/08/25 Rx BIPOLAR 30 days #90 tabs Have you fallen in the past year?: Yes PFSH Medical History (Updated 06/08/25 @ 15:43 by Karen Henry RN) Lumbar stenosis with neurogenic claudication Obesity (BMI 30-39.9) Loss of hearing Wears glasses Post-menopausal Marijuana use Thyroid disease Ambulates with cane Walker as ambulation aid High cholesterol Back pain TIA (transient ischemic attack) Syncope Dietary restriction Vapes nicotine containing substance Former smoker CPAP (continuous positive airway pressure) dependence History of pain when walking History of echocardiogram Lumbar stenosis Cervical radiculopathy PTSD (post-traumatic stress disorder) Bipolar 1 disorder Vitamin D deficiency Neuropathy Hypertension Diabetes type 2, controlled Chronic bronchitis Arthritis Surgical History Hx of colonoscopy Hx of dilation and curettage Hx of decompressive lumbar laminectomy History of lumbar fusion Family History Other Alcoholism Anxiety Arthritis defect Breast cancer CVA (cerebral vascular accident) Cancer Depression Diabetes Hypertension Mental disorder Myocardial infarction Suicide attempt Social History Smoking Status: Former smoker Smokeless tobacco user: other alcohol intake: current alcohol intake frequency: other details: Rarley 3-4 a year substance use type: does not use HPI lumbar spine Details: This documentation accurately reflects the service provided and the decisions made by me, Dr. Yair Benedict MD 06/08/25 1455. Part of today???s visit was documented by Maliha Mckeon MA, acting as scribe. REINIER MENDOZA is a 55 year old F here today for lumbar spine pre op. She is scheduled for L2-4 anterior and posterior fusion, revision posterior instrumentation from L2-S1, removal of previous hardware on 06-12-25. Patient states that her pain is a 5 today. She had a fall about 3 weeks ago. Patient states that she is okay. The patient is a 55-year-old female presenting with concerns related to hyponatremia and its impact on her upcoming spinal surgery. Hyponatrem (more content not included)... Normal [facility] PROTHROMBIN TIME-INRon 06-08 INR Coag (PPP) [Relative time] 1.0 {INR} Normal [facility] Comment on above: Result Comment: Refe rence Range 0.9-1.1 Moderate-intensity Warfarin Therapy 2.0-3.0 Higher-intensity Warfarin Therapy 3.0-4.0 Performed By: #### 9 8945, 6399 #### [facility] [address], [address] [place] [address] [employer] Supervisor: Fahad Moore MD PT Coag (PPP) [Time] 10.2 s Normal 9.0-11.5 [facility] Comment on above: Result Comment: For additional information, please refer to http://education.Precognate.CommitChange/faq/ZFS626 (This link is being provided for informational/ educational purposes only.) Performed By: #### 9 8655, 6399 #### [facility] [address], [address] [place] [address] [employer] Supervisor: Fahad Moore MD Spine Lumbar without Contras ton 06-08-2025 Spine Lumbar without Contrast [facility] Imaging Services [address] [place] [address] Spine Lumbar without Contrast MR#: [id number] Acct: [id number] Name: REINIER MENDOZA Rep #: [id number] : 1970 F 55 From: Fred Santoyo MD PCP: Suzanne Cruz, SUPERVISOR MAPPING-C Status: REG CLI Study: Spine Lumbar without Contrast Date of Exam: Exam# [id number] Ordering Dr: Yair Benedict MD PROCEDURE: CT SPINE LUMBAR WITHOUT CONTRAST 06/08/2025 REASON FOR EXAM: LUMBAR STENOSIS TECHNIQUE: Procedure Code: CTSPL Modality: CT Procedure: SPINE LUMBAR WITHOUT CONTRAST Coronal and Sagittal reconstruction series were provided. One or more dose reduction techniques were used (e.g., Automated exposure control, adjustment of the mA and/or kV according to patient size, use of iterative reconstruction technique COMPARISON: Correlation with lumbar spine MRI 03/16/2025. RADIATION DOSE SUMMARY: CTDlvol: 41.85 mGy DLP: 1069.93 mGycm FINDINGS: Postoperative changes of dorsal decompressive laminectomy and posterior metallic instrumented fusion from L4-S1. No evidence of hardware loosening or failure. No acute fracture or subluxation. Alignment is anatomic. Multilevel spondylotic changes with varying degrees of disc space narrowing with vacuum disc phenomena, prominent endplate sclerosis with multiple scattered degenerative Schmorl's nodes and/or subchondral cysts, anterior endplate osteophytosis, and hypertrophic facet arthropathy. Redemonstrated disc bulging with moderate-advanced spinal canal stenosis at L3-4, and mild-moderate stenosis at L2-3. No high-grade neural foraminal narrowing appreciated. CT/Spine Lumbar without Contrast IMPRESSION: Postop changes of dorsal decompression and instrumented fusion from L4-S1. Multilevel spondylotic changes with disc bulging at the adjacent segments, with redemonstrated moderate-advanced spinal canal stenosis at L3-4, and mild-moderate stenosis at L2-3, which is better depicted on the prior MRI from 03/16/2025. Reading Location: [facility] CC: SUPERVISOR MAPPING-C Suzanne Arroyo; Dr. Yair Benedict MD Structural Steel Erection Supervisor: Signed Normal [facility] MRSA/SAID NASAL SCREENon MRSA+SAID SCRN Reason for Exam: Linda lindsey MRSA MRSA Negative S. AUREUS S. aureus PositiveA Normal [facility] Comment on above: Performed By: #### M 100.651, L500.2500, L501.9985, BTSPAT, L100.0100 ####[facility] [address] [place], [address] MR/PATKofiJAEagnieszka 06-02-2025 MR/KALI [facility] Medical Records Department [address] [place] [address] PAT - Anesthesia 06/02/25 1722 MR#: [id number] Acct: [id number] Name: REINIER MENDOZA Rep #: [id number] : 1970 55 From: Stephen Martin MD PCP: Suzanne Arroyo SUPERVISOR MAPPING-C Status:PRE IN Y Race: C Location: [facility] Pre-Assessment Diagnosis/Proposed Procedure Planned Operative Procedure(s): 360 LUMBAR FUSION L2-L3 L3-4 WITH REVISION OF POSTERIOR INSTRUMENTATION L2-3 L3-4 L4-5 L5-S1 REMOVAL OF PREVIOUS HARDWARE Anesthesia History Anesthesia History - site leasing agent: Anesthesia History - site leasing agent Hx Hospitalization No 05/26/25 10:10 Any Problems With Anesthesia No 05/26/25 10:10 Cholinesterase deficiency No 05/26/25 10:10 You/Your Family Experience No 05/26/25 10:10 fever (hyperthermia) with Relationship Recent Exposure to Contagious Disease Does patient have nerve No 05/26/25 10:10 stimulator Patient instructed to have device shut off --Does patient have Pacemaker or ICD? When Was Last Pacemaker Check QUESTION #4 FULL TEXT: You/Your Family Experience fever (hyperthermia) with Anesthesia Last Oral Intake Last Oral intake: Last Oral Intake NPO since Meds taken in AM with sips of water? Meds patient instructed to take am of surgery PONV PONV - site leasing agent: PONV - site leasing agent Female Yes 05/26/25 10:10 HX of Motion Sickness Yes 05/26/25 10:10 HX of N/V After Surgery No 05/26/25 10:10 Non-Smoker Yes 05/26/25 10:10 Duration of Surgery greater Yes 05/26/25 10:10 than 60 minutes Number of Risk Factors 4 05/26/25 10:10 PONV Score Severe Risk 05/26/25 10:10 Height Weight Height Weight: Anesthesia: Height Weight Height 5 ft 6.5 in 03/23/25 13:41 Respiratory Assessment Respiratory Assessment - site leasing agent: Respiratory Tract Infection Hx - site leasing agent Hx Respiratory Tract Infection No 05/26/25 10:10 STOP Sleep Apnea STOP Sleep Apnea - site leasing agent: STOP Sleep Apnea - site leasing agent Hx Hypertension Yes: CONTROLLED WITH MEDS 05/26/25 10:10 Hx Sleep Apnea Yes 05/26/25 10:10 CPAP Yes 05/26/25 10:10 BIPAP No 05/26/25 10:10 Do you snore loudly (louder than talking or can be heard Do you often feel tired/ fatigued/ sleepy during daytime? Has anyone observed you stop breathing during sleep? STOP Results Positive 05/26/25 10:10 QUESTION #5 FULL TEXT : Do you snore loudly (louder than talking or can be heard through closed doors)? 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 Specify any problems Hx of Preganancy in last 3 No 05/26/25 10:10 Months Nurse Filling Out Transfusion DSCHRIBER 05/26/25 10:10 Questions: Date: 05/26/25 05/26/25 10:10 Time: 10:12 05/26/25 10:10 Patient unable to answer at this time (ie. confused, unrespo /Reproduction History /Reproductive History - site leasing agent: /Reproductive Hx- site leasing agent Hx Now No 05/26/25 10:10 Gestational Age (in weeks): EDC: Hx Hx Para Hx Section SAB No 05/26/25 10:10 PFSH Medical History (Updated 05/26/25 @ 10:23 by Natalya Tejeda) Loss of hearing Wears glasses Post-menopausal Marijuana use Thyroid disease Ambulates with cane Walker as ambulation aid High cholesterol Back pain TIA (transient ischemic attack) Syncope Dietary restriction Vapes nicotine containing substance Former smoker CPAP (continuous positive airway pressure) dependence History of pain when walking History of echocardiogram Lumbar stenosis Cervical radiculopathy PTSD (post-traumatic stress disorder) Bipolar 1 disorder Vitamin D deficiency Neuropathy Hypertension Diabetes type 2, controlled Chronic bronchitis Arthritis Home Medications ???Medication ???Instructions ???Recorded ???Last Taken ???Type carvedilol 6.25 mg tablet 12.5 mg PO BID HEART 0 (more content not included)... Normal [facility] 12 Lead EKGon 06-01-2025 12 Lead EKG [facility] Cardiovascular Services [address] [place] [address] 12 Lead EKG 06/01/25 1404 MR#: [id number] Acct: [id number] Name: REINIER MENDOZA Rep #: [id number] : 1970 55 From: Francesco Dorado MD Attending Dr: Dr. Yair Benedict MD Status: PRE IN Ordering Dr: Yair Benedict MD Date: 06/01/25 Location: [facility] Sex: F C Admitted: Test Reason : PREOP Blood Pressure : */* mmHG Vent. Rate : 67 BPM Atrial Rate : 67 BPM P-R Int : 180 ms QRS Dur : 90 ms QT Int : 426 ms P-R-T Axes : 39 -3 40 degrees QTcB Int : 450 ms Normal sinus rhythm Normal ECG Confirmed by Francesco Dorado ([id number]), video effects editor KEVIN SQUIRES ([id number]) on 06/02/2025 7:08:29 AM Referred By: Yair Benedict Confirmed By: Francesco Dorado 06/02/25 0708 Date Francesco Dorado MD CC: REGGIE Arroyo; Dr. Yair Benedict MD Signed Normal [facility] Basic Metabolic Profile (BMP )on 06-01-2025 BUN/CRE 25.1 RATIO High 05-29 [facility] Comment on above: Performed By: #### M 100.651, L500.2500, L501.9985, BTSPAT, L100.0100 ####[facility] [address] [place], [address] Calcium [Mass/Vol] 9.1 mg/dL Normal 7.6-11.0 [facility] Comment on above: Performed By: #### M 100.651, L500.2500, L501.9985, BTSPAT, L100.0100 ####[facility] [address] [place], [address] Chloride [Moles/Vol] 95 mmol/L Low 98-108 [facility] Comment on above: Performed By: #### M 100.651, L500.2500, L501.9985, BTSPAT, L100.0100 ####[facility] [address] [place], [address] CO2 [Moles/Vol] 18.6 mmol/L Low 21.0-32.0 [facility] Comment on above: Performed By: #### M 100.651, L500.2500, L501.9985, BTSPAT, L100.0100 ####[facility] [address] [place], [address] Creatinine [Mass/Vol] 0.53 mg/dL Low 0.70-1.20 [facility] Comment on above: Performed By: #### M 100.651, L500.2500, L501.9985, BTSPAT, L100.0100 ####[facility] [address] [place], [address] GAP 14 Normal 5-15 [facility] Comment on above: Performed By: #### M 100.651, L500.2500, L501.9985, BTSPAT, L100.0100 ####[facility] [address] [place], [address] GFR/1.73 sq M.predicted among non-blacks MDRD (S/P/Bld) [Vol rate/Area] 109 mL/min/{1.73_m2} Normal >60 [facility] Comment on above: Result Comment: mL/m in/1.73m2 CKD-EPI Creatinine Equation (2020) Performed By: #### M 100.651, L500.2500, L501.9985, BTSPAT, L100.0100 ####[facility] [address] [place], [address] Glucose [Mass/Vol] 135 mg/dL High 70-99 [facility] Comment on above: Performed By: #### M 100.651, L500.2500, L501.9985, BTSPAT, L100.0100 ####[facility] [address] [place], [address] Potassium [Moles/Vol] 4.4 mmol/L Normal 3.3-5.1 [facility] Comment on above: Performed By: #### M 100.651, L500.2500, L501.9985, BTSPAT, L100.0100 ####[facility] [address] [place], [address] Sodium [Moles/Vol] 128 mmol/L Low 133-145 [facility] Comment on above: Performed By: #### M 100.651, L500.2500, L501.9985, BTSPAT, L100.0100 ####[facility] [address] [place], [address] Urea nitrogen [Mass/Vol] 13 mg/dL Normal 4-19 [facility] Comment on above: Performed By: #### M 100.651, L500.2500, L501.9985, BTSPAT, L100.0100 ####[facility] [address] [place], [address] CBC W/Diff, Automatedon 10-2 Absolute Lymph 2.20 X10 3/uL Normal 0.83-4.51 [facility] Comment on above: Performed By: #### M 100.651, L500.2500, L501.9985, BTSPAT, L100.0100 ####[facility] [address] [place], [address] Absolute Neut 4.1 X10 3/uL Normal 2.0-7.7 [facility] Comment on above: Performed By: #### M 100.651, L500.2500, L501.9985, BTSPAT, L100.0100 ####[facility] [address] [place], [address] Basophils/100 WBC (Bld) 0.4 % Normal 0-1 [facility] Comment on above: Performed By: #### M 100.651, L500.2500, L501.9985, BTSPAT, L100.0100 ####[facility] [address] [place], [address] Eosinophils/100 WBC (Bld) 1.7 % Normal 0-5 [facility] Comment on above: Performed By: #### M 100.651, L500.2500, L501.9985, BTSPAT, L100.0100 ####[facility] [address] [place], [address] Erythrocyte distribution width (RBC) [Ratio] 12.3 % Normal 11.6-14.6 [facility] Comment on above: Performed By: #### M 100.651, L500.2500, L501.9985, BTSPAT, L100.0100 ####[facility] [address] [place], [address] Hematocrit (Bld) [Volume fraction] 37.0 % Normal 37-47 [facility] Comment on above: Performed By: #### M 100.651, L500.2500, L501.9985, BTSPAT, L100.0100 ####[facility] [address] [place], [address] Hemoglobin (Bld) [Mass/Vol] 13.3 g/dL Normal 12.0-15.0 [facility] Comment on above: Performed By: #### M 100.651, L500.2500, L501.9985, BTSPAT, L100.0100 ####[facility] [address] [place], [address] IG% 0.600 Normal 0.0-0.9 [facility] Comment on above: Result Comment: IG% - Immature Granulocytes (promyelocytes, myelocytes and metamyelocytes) > 1% indicates that a LEFT SHIFT is Present. Performed By: #### M 100.651, L500.2500, L501.9985, BTSPAT, L100.0100 ####[facility] [address] [place], [address] Lymphocytes/100 WBC (Bld) 30.9 % Normal 19-41 [facility] Comment on above: Performed By: #### M 100.651, L500.2500, L501.9985, BTSPAT, L100.0100 ####[facility] [address] [place], [address] MCH (RBC) [Entitic mass] 30.5 pg Normal 27.0-32.0 [facility] Comment on above: Performed By: #### M 100.651, L500.2500, L501.9985, BTSPAT, L100.0100 ####[facility] [address] [place], [address] MCHC (RBC) [Mass/Vol] 35.9 g/dL Normal 32-36 [facility] Comment on above: Performed By: #### M 100.651, L500.2500, L501.9985, BTSPAT, L100.0100 ####[facility] [address] [place], [address] MCV (RBC) [Entitic vol] 84.9 fL Normal 81-99 [facility] Comment on above: Performed By: #### M 100.651, L500.2500, L501.9985, BTSPAT, L100.0100 ####[facility] [address] [place], [address] Monocytes/100 WBC (Bld) 8.7 % Normal 0-10 [facility] Comment on above: Performed By: #### M 100.651, L500.2500, L501.9985, BTSPAT, L100.0100 ####[facility] [address] [place], [address] Neutrophils/100 WBC (Bld) 57.7 % Normal 47-70 [facility] Comment on above: Performed By: #### M 100.651, L500.2500, L501.9985, BTSPAT, L100.0100 ####[facility] [address] [place], [address] Nucleated RBC (Bld) [#/Vol] 0 10*3/uL Normal 0-5 [facility] Comment on above: Performed By: #### M 100.651, L500.2500, L501.9985, BTSPAT, L100.0100 ####[facility] [address] [place], [address] Platelet mean volume (Bld) [Entitic vol] 9.1 fL Normal 6.2-12.0 [facility] Comment on above: Performed By: #### M 100.651, L500.2500, L501.9985, BTSPAT, L100.0100 ####[facility] [address] [place], [address] Platelets (Bld) [#/Vol] 297 10*3/uL Normal 150-450 [facility] Comment on above: Performed By: #### M 100.651, L500.2500, L501.9985, BTSPAT, L100.0100 ####[facility] [address] [place], [address] RBC (Bld) [#/Vol] 4.36 10*6/uL Normal 4.2-5.4 [facility] Comment on above: Performed By: #### M 100.651, L500.2500, L501.9985, BTSPAT, L100.0100 ####[facility] [address] [place], [address] RDW SD 37.7 fl Normal 35.1-43.9 [facility] Comment on above: Performed By: #### M 100.651, L500.2500, L501.9985, BTSPAT, L100.0100 ####[facility] [address] [place], [address] WBC (Bld) [#/Vol] 7.1 10*3/uL Normal 4.4-11.0 [facility] Comment on above: Performed By: #### M 100.651, L500.2500, L501.9985, BTSPAT, L100.0100 ####[facility] [address] [place], [address] Hemoglobin A1con 06-01-2025 HbA1c (Bld) [Mass fraction] 6.4 % High <=5.6 [facility] Comment on above: Result Comment: Norm al < 5.7 % Prediabetic 5.7 - 6.4 % Diabetic >or= 6.5 % Please note range changes. Performed By: #### M 100.651, L500.2500, L501.9985, BTSPAT, L100.0100 ####[facility] [address] [place], [address] Magnesiumon 06-01-2025 Magnesium [Mass/Vol] 1.8 mg/dL Normal 1.5-2.2 [facility] Comment on above: Performed By: #### L 501.5200 ####[facility] [address] [place], [place], [address] Type AND Screen - PAT ONLYon 06-01-2025 ABO and Rh group Nom (Bld) Blood group O Rh(D) positive Normal [facility] Comment on above: Order Comment: Surge ry Date: 06/12/25Reason for Laboratory Test [id number] LUMBAR FUSION Performed By: #### M 100.651, L500.2500, L501.9985, BTSPAT, L100.0100 ####[facility] [address] [place], [place], [address] MR/BMS.BPon 05-23-2025 MR/BMS.BP [address], [address] [place], [place] [address] OFFICE VISIT Date of Service: 05/23/25 MR#: [id number] Acct: [id number] Name: REINIER MENDOZA Rep #: [id number] : 1970 Provider: Dr. Demario Jin se, DO Age/Sex: 55/F Location: [facility].BPV Status: Signed Intake Vital Signs 03/23/25 13:41 05/23/25 13:49 Height 5 ft 6.5 in 5 ft 6.5 in Weight: 235 lb 2 oz BMI 37.3 BP Intake Visit Reasons: 2-3mfu Allergies azithromycin Allergy (Mild, Verified 03/23/25 13:45) Hives Sulfa (Sulfonamide Antibiotics) Allergy (Mild, Verified 03/23/25 13:45) Other [facility] Medical History (Updated 03/23/25 @ 14:22 by Karen Henry RN) Lumbar stenosis Sleep apnea Cervical radiculopathy Insomnia PTSD (post-traumatic stress disorder) Bipolar 1 disorder Vitamin D deficiency Stroke Pneumonia Neuropathy Hives High cholesterol Hypertension Headache Goiter Diabetes type 2, controlled Chronic bronchitis Breast lump UTI (urinary tract infection) Bone fracture History of back problems Arthritis Family History Other Alcoholism Anxiety Arthritis defect Breast cancer CVA (cerebral vascular accident) Cancer Depression Diabetes Hypertension Mental disorder Myocardial infarction Suicide attempt Social History Smoking Status: Heavy Smoker (>10/day) Smokeless tobacco user: other alcohol intake: current alcohol intake frequency: other details: Rarley 3-4 a year substance use type: does not use HPI History of Present Illness History provided by: patient Chief complaint: Depression/medical concerns HPI: Reinier Mendoza is a 55 year old female who presents today for follow up evaluation via virtual visit. Patient reports that she is scheduled for back surgery in about 3 weeks. Has been feeling somewhat nervous about this, but is overall prepared. Has had surgery in the past and did very well. Won't be able to drive for about 3-4 weeks. Mood is "pretty good." Recently started a supplement that her son had been taking for weight loss, and has felt better since she was taking. She is unsure of what she is even taking. Sleep has been fair. Does wake up around 3:30 am to 4 am and then goes back to bed after some time. Generally up for about 30-90 minutes. Energy throughout the day has been doing largely well. Feels like medications are working largely well. Somewhat nervous about her blood sugar being low enough for surgeon to feel comfortable. This tele-medicine visit was performed via audio/video technology. Review of Systems Constitutional Denies: fever(s) or chills Eyes Denies: change in vision or blurry vision Ears, Nose, Mouth, Throat Denies: throat pain, neck pain, ear or mastoid pain, ear discharge, change in hearing or nasal discharge Cardiovascular Denies: chest pain, palpitations or dyspnea Respiratory Denies: dyspnea, cough or wheezing Gastrointestinal Denies: abdominal pain, nausea, vomiting, diarrhea or constipation Genitourinary Denies: dysuria, urinary urgency or difficulty voiding Musculoskeletal Reports: back pain, extremity pain, limited range of motion and muscle weakness; Denies: neck pain or joint pain Integumentary/Breast Denies: rash or new lesions Neurological Denies: headache(s), dizziness or confusion Endocrine Denies: excessive sweating Hematologic/Lymphatic Denies: easy bruising or easy bleeding Allergic/Immunologic Denies: wheezing Exam Mental Status Exam - Psych Appearance adequately groomed Attitude cooperative Activity/Motor Behavior MSE activity/motor behavior finding no adventitious movements Speech regular rate, regular volume and regular prosody Mood other ("All right") Affect constricted Thought Process linear, logical and coherent Thought Content no delusions and no hallucinations Suicidal Ideation none Homicidal Ideation none Attention intact Concentration intact Sensorium/Orientation awake, alert and oriented x3 Memory/Cognition other (appropriate for stated age) Insight fair Judgement fair Assessment Plan Assessment Plan (1) Bipolar 1 disorder: Plan: - Largely doing well however some apprehension about upcoming back surgery ??? We will reduce carbamazepine to 200 mg twice a day as she continues to have some intermittent hyponatremia ??? We will continue other psychiatric medications as previously prescribed including Abilify, Wellbutrin, Effexor as previous (2) PTSD (post-traumatic stress disorder): Plan: - See above Medications: Changed From carbamazepine 300 mg (1.5 x 200 mg) PO BID 90 days 270 tabs 2RF To carbamazepine 200 mg PO BID 60 (more content not included)... Normal [facility] COMPREHENSIVE METABOLIC PANE L W/ANION GAPon 04-20-2025 Albumin [Mass/Vol] 4.4 g/dL Normal 3.6-5.1 [facility] Comment on above: Performed By: #### 1 6802, 29826, 59095 #### [facility] of [address], [address] [place] [address] Automobile Assembly Supervisor: Fahad Moore MD ALP [Catalytic activity/Vol] 51 U/L Normal 37-153 [facility] Comment on above: Performed By: #### 1 6802, 47465, 74951 #### [facility] [place] [address] [employer] Supervisor: Fahad Moore MD ALT [Catalytic activity/Vol] 23 U/L Normal 6-29 [facility] Comment on above: Performed By: #### 1 6802, 04961, 29293 #### [facility] [address], [address] [place] [address] [employer] Supervisor: Fahad Moore MD AST [Catalytic activity/Vol] 21 U/L Normal 10-35 [facility] Comment on above: Performed By: #### 1 6801, 29165, 92980 #### [facility] of [place] [address] [employer] Supervisor: Fahad Moore MD Bilirubin [Mass/Vol] 0.3 mg/dL Normal 0.2-1.2 [facility] Comment on above: Performed By: #### 1 6801, 38950, 47268 #### [facility] of [place] [address] [employer] Supervisor: Fahad Moore MD Calcium [Mass/Vol] 9.6 mg/dL Normal 8.6-10.4 [facility] Comment on above: Performed By: #### 1 6801, , 86838 #### [facility] of [place] [address] [employer] Supervisor: Fahad Moore MD Chloride [Moles/Vol] 92 mmol/L Low 98-110 [facility] Comment on above: Performed By: #### 1 6801, 62917, 00582 #### [facility] of [place] [address] [employer] Supervisor: Fahad Moore MD CO2 [Moles/Vol] 25 mmol/L Normal 20-32 [facility] Comment on above: Performed By: #### 1 6801, 63729, 78122 #### [facility] of [place] [address] [employer] Supervisor: Fahad Moore MD Creatinine [Mass/Vol] 0.47 mg/dL Low 0.50-1.03 [facility] Comment on above: Performed By: #### 1 6801, 92737, 16758 #### [facility] [place] [address] [employer] Supervisor: Fahad Moore MD ELECTROLYTE BALANCE 10 mmol/L (calc) Normal 7-17 [facility] Comment on above: Performed By: #### 1 6801, 83514, 91608 #### [facility] [address], [address] [place] [address] [employer] Supervisor: Fahad Moore MD GFR/1.73 sq M.predicted among non-blacks MDRD (S/P/Bld) [Vol rate/Area] 112 mL/min/{1.73_m2} Normal > OR = 60 [facility] Comment on above: Performed By: #### 1 6801, 60601, 97008 #### [facility] of [address], [address] [place] [address] [employer] Supervisor: Fahad Moore MD Glucose [Mass/Vol] 117 mg/dL High 65-99 [facility] Comment on above: Result Comment: Fasting reference interval For someone without known diabetes, a glucose value between 100 and 125 mg/dL is consistent with prediabetes and should be confirmed with a follow-up test. Performed By: #### 1 6801, , 24275 #### [facility] of [address], [address] [place] [address] [employer] Supervisor: Fahad Moore MD Potassium [Moles/Vol] 4.4 mmol/L Normal 3.5-5.3 [facility] Comment on above: Performed By: #### 1 6801, , 77766 #### [facility] [place] [address] [employer] Supervisor: Fahad Moore MD Protein [Mass/Vol] 7.2 g/dL Normal 6.1-8.1 [facility] Comment on above: Performed By: #### 1 6801, 52663, 95546 #### [facility] [place] [address] [employer] Supervisor: Fahad Moore MD Sodium [Moles/Vol] 127 mmol/L Low 135-146 [facility] Comment on above: Performed By: #### 1 6801, 13456, 45514 #### [facility] [address], [address] [place], [place] [address] [employer] Supervisor: Fahad Moore MD Urea nitrogen [Mass/Vol] 21 mg/dL Normal 7-25 [facility] Comment on above: Performed By: #### 1 2, 30466, 75267 #### [facility] [place] [address] [employer] Supervisor: Fahad Moore MD HEMOGLOBIN A1c WITH eAGon eAG (mmol/L) 9.0 mmol/L Normal [facility] Comment on above: Performed By: #### 1 6802, 76942, 48024 #### [facility] [place] [address] [employer] Supervisor: Fahad Moore MD HbA1c (Bld) [Mass fraction] 7.3 % High <5.7 [facility] Comment on above: Result Comment: For someone without known diabetes, a hemoglobin A1c value of 6.5% or greater indicates that they may have diabetes and this should be confirmed with a follow-up test. For someone with known diabetes, a value <7% indicates that their diabetes is well controlled and a value greater than or equal to 7% indicates suboptimal control. A1c targets should be individualized based on duration of diabetes, age, comorbid conditions, and other considerations. Currently, no consensus exists regarding use of hemoglobin A1c for diagnosis of diabetes for children. Performed By: #### 1 2, 20877, 35014 #### [facility] [place] [address] [employer] Supervisor: Fahad Moore MD Magnesium [Mass/Vol] 163 mg/dL Normal [facility] Comment on above: Performed By: #### 1 2, 80138, 25945 #### [facility] [place] [address] [employer] Supervisor: Fahad Moore MD TSH W/REFLEX TO FT4on 2024 TSH W/REFLEX TO FT4 Normal [facility] Comment on above: Performed By: #### 1 2, 44583, 61810 #### [facility] [place] [id number] [employer] Supervisor: Fahad Moore MD Orthopedic Visit Reporton Orthopedic Visit Report [facility] [facility] [address] [place] [address] OFFICE VISIT Date of Service: 03/23/25 MR#: [id number] Acct: [id number] Name: REINIER MENDOZA Rep #: [id number] : 1970 Provider: Dr. Yair Benedict MD Age/Sex: 55/F Location: [facility] Status: Signed Intake Vital Signs 01/05/25 14:26 03/07/25 16:21 03/23/25 13:41 Height 5 ft 6.5 in 5 ft 6.5 in 5 ft 6.5 in Weight: 235 lb 2 oz BMI 37.3 Intake Visit Reasons: LUMBAR SPINE Chief Complaint: Lumbar spine and Cervical MRI review Accompanied by: Self Is patient in pain?: Yes Pain scale (1-10): 8 Allergies azithromycin Allergy (Mild, Verified 03/23/25 13:45) Hives Sulfa (Sulfonamide Antibiotics) Allergy (Mild, Verified 03/23/25 13:45) Other Medications ???Medication ???Instructions ???Recorded ???Confirmed ???Type carvedilol 6.25 mg tablet tablet PO 09/22/22 03/23/25 Histor y ibuprofen 200 mg tablet 200 mg PO Q6H PRN 09/22/22 5 History losartan 100 mg tablet tablet PO 09/22/22 03/23/25 Histor y multivitamin 1 tab PO DAILY 09/22/22 03/23/25 H istory aspirin 81 mg tablet 81 mg PO DAILY 11/20/23 03/23/25 H istory cholecalciferol (vitamin D3) 125 125 mcg PO DAILY 11/20/23 03/23/25 History mcg (5,000 unit) capsule magnesium 250 mg tablet 500 mg PO DAILY 11/20/23 03/23/25 History nifedipine 30 mg tablet,extended 90 mg PO DAILY 11/20/23 03/23/25 H istory release turmeric root extract 500 mg 1,000 mg PO BID 11/20/23 03/23/25 History capsule zinc acetate 50 mg (zinc) capsule 50 mg PO DAILY 11/20/23 03/23/25 History metformin 500 mg tablet,extended 1,000 mg PO BID 12/17/23 03/23/25 History release 24 hr melatonin 3 mg capsule 9 mg PO HS PRN 01/05/25 03/23/25 H istory aripiprazole 15 mg tablet 15 mg PO DAILY 30 days #30 tabs 03/23/25 Rx bupropion HCl 300 mg 24 hr tablet, 300 mg PO QAM 30 days #30 tabs 0 03/07/25 03/23/25 Rx extended release carbamazepine 200 mg tablet 300 mg (1.5 x 200 mg) PO BID 90 03/23/25 Rx days #270 tabs venlafaxine 150 mg 150 mg PO DAILY 30 days #30 caps 0 03/07/25 03/23/25 Rx capsule,extended release 24 hr omega-3 acid ethyl esters 1 gram 1 cap PO QDAY 03/23/25 03/23/25 Hi story capsule psyllium husk 0.4 gram capsule 0.4 g PO ONCE 03/23/25 03/23/25 Hi story (Daily Fiber) Have you fallen in the past year?: Yes [facility] Medical History (Updated 03/23/25 @ 14:22 by Karen Henry RN) Lumbar stenosis Sleep apnea Cervical radiculopathy Insomnia PTSD (post-traumatic stress disorder) Bipolar 1 disorder Vitamin D deficiency Stroke Pneumonia Neuropathy Hives High cholesterol Hypertension Headache Goiter Diabetes type 2, controlled Chronic bronchitis Breast lump UTI (urinary tract infection) Bone fracture History of back problems Arthritis Family History Other Alcoholism Anxiety Arthritis defect Breast cancer CVA (cerebral vascular accident) Cancer Depression Diabetes Hypertension Mental disorder Myocardial infarction Suicide attempt Social History Smoking Status: Heavy Smoker (>10/day) Smokeless tobacco user: other alcohol intake: current alcohol intake frequency: other details: Diptiley 3-4 a year substance use type: does not use HPI LUMBAR SPINE Details: This documentation accurately reflects the service provided and the decisions made by me, Dr. Yair Benedict MD 03/23/25 1341. Part of today???s visit was documented by Maliha Mckeon MA and Karen Henry RN, acting as scribe. REINIER MENDOZA is a 55 year old F here today for lumbar spine and cervical spine MRI review. Patient states that her pain is an 8 today. She would like to go over the MRI results to discuss what the next step would be. Her last Epidural was about 2-[address] Tolentino. The epidural injection lasted 3 weeks for her. She states that her pain decreased down to a 2 when she got the injection. Patient states that she has done physical therapy in the past for her back. She states that the physical therapy made the pain worse. Patient is currently doing massage therapy at home for about a week. The massage therapy is helping decrease the numbness in the right leg, but the numbness is still there. She reports weakness in her legs the right leg is worse than the left. She does have sleep apnea and uses a CPAP at night. She does have hypertension. She does not take a blood thinner. The patient is a 55-year-old female presenting with issues related to cervical radiculopathy and lumbar spinal stenosis. The cervical radiculopathy is characterized by intermittent severe pain in (more content not included)... Normal [facility] Spine Cervical (Routine)on 0 03-16-2025 Spine Cervical (Routine) [facility] Imaging Services [address] [place] [address] Spine Cervical (Routine) MR#: [id number] Acct: [id number] Name: REINIER MENDOZA Rep #: [id number] : 1970 F 55 From: Jim Ochoa MD PCP: Suzanne Arroyo NP-Jonh Status: REG CLI Study: Spine Cervical (Routine) Date of Exam: Exam# [id number] Ordering Dr: Yair Benedict MD PROCEDURE: SPINE CERVICAL (ROUTINE) 03/16/2025 REASON FOR EXAM: CERVICAL RADICULOPATHY TECHNIQUE: SPINE CERVICAL (ROUTINE) Multiplanar and multisequence images were obtained without IV contrast administration. COMPARISON: None. FINDINGS: Vertebrae: Cervical vertebral body heights are preserved. Bone marrow signal is unremarkable. Alignment: Normal. No spondylolisthesis. Spinal Cord: Cervical spinal cord is of normal size and signal intensities. Structures at the foramen magnum are unremarkable. C2-3: Facet joint arthropathy. No foraminal or canal stenosis. C3-4: Disc osteophyte complex. Facet joint arthropathy. Severe right and mild left foramina stenosis. No canal stenosis. C4-5: Disc osteophyte complex. Uncovertebral hypertrophy. Facet joint arthropathy. Severe left and mild right foramina stenosis. No canal stenosis. C5-6: Disc osteophyte complex. Uncovertebral hypertrophy. Facet joint arthropathy. Mild left and moderate right foramina stenosis. Mild canal stenosis. C6-7: Disc osteophyte complex. Facet joint arthropathy. Severe left and mild right foramina stenosis. Mild canal stenosis. C7-T1: Unremarkable MRI/Spine Cervical (Routine) IMPRESSION: Severe right foramina stenosis at C3-C4, severe left foramina stenosis at C4-C5 and C6-C7. No significant canal stenosis. Reading Location: [facility] CC: REGGIE Arroyo; Dr. Yair Benedict MD [employer] Supervisor: Signed Normal [facility] Spine Lumbar (Routine)on Spine Lumbar (Routine) [facility] Imaging Services [address] [place] [id number] Spine Lumbar (Routine) MR#: [id number] Acct: [id number] Name: REINIER MENDOZA Rep #: [id number] : 1970 F 55 From: Jim Ochoa MD PCP: REGGIE Arias Status: REG CLI Study: Spine Lumbar (Routine) Date of Exam: 03/16/25 Exam# [id number] Ordering Dr: Yair Benedict MD PROCEDURE: SPINE LUMBAR (ROUTINE) 03/16/2025 REASON FOR EXAM: LUMBAR RADICULOPATHY TECHNIQUE: SPINE LUMBAR (ROUTINE) COMPARISON: Lumbar spine MRI December 09, 2023. FINDINGS: Vertebrae: Preserved in height and signal Alignment: Normal alignment. Conus Medullaris: Unremarkable. Crowding at the cauda equina nerves posterior to L2. L1-2: No foraminal or canal stenosis. L2-3: Disc bulge. Prominence of the extra dural fat. Facet joint arthropathy. Severe narrowing of the lumbar canal. Mild bilateral inferior neural foramina stenosis. L3-4: Disc bulge. Facet joint arthropathy. Severe canal stenosis. Mild bilateral foramina stenosis. L4-5: Status post posterior fusion and laminectomies. No significant foraminal stenosis. L5-S1: Status post posterior fusion and laminectomies. No significant foraminal stenosis. Sacrum: Unremarkable. MRI/Spine Lumbar (Routine) IMPRESSION: Status post posterior fusion of L4-L5 and L5-S1. Severe canal stenosis at L2-L3 and L3-L4. Compared to MRI December 09, 2023, worsening stenosis of the canal at L2-L3. Reading Location: [facility] CC: REGGIE Arroyo; Dr. Yair Benedict MD [employer] Supervisor: Signed [facility] MR/BMS.BPon 03-07-2025 MR/BMS.[address], [address] [place] [address] OFFICE VISIT Date of Service: 03/07/25 MR#: [id number] Acct: [id number] Name: REINIER MENDOZA Rep #: [id number] : 1970 Provider: Dr. Demario Jin se DO Age/Sex: 55/F Location: [facility] Status: Signed Intake Vital Signs 01/05/25 14:26 03/07/25 16:21 Height 5 ft 6.5 in 5 ft 6.5 in BP Intake Visit Reasons: 2 M FU Allergies azithromycin Allergy (Mild, Verified 09/27/24 13:55) Hives Sulfa (Sulfonamide Antibiotics) Allergy (Mild, Verified 09/27/24 13:55) Other [facility] Medical History (Updated 02/24/25 @ 12:13 by Karen Henry RN) Cervical radiculopathy Insomnia PTSD (post-traumatic stress disorder) Bipolar 1 disorder Vitamin D deficiency Stroke Pneumonia Neuropathy Hives High cholesterol Hypertension Headache Goiter Diabetes type 2, controlled Chronic bronchitis Breast lump UTI (urinary tract infection) Bone fracture History of back problems Arthritis Family History Other Alcoholism Anxiety Arthritis defect Breast cancer CVA (cerebral vascular accident) Cancer Depression Diabetes Hypertension Mental disorder Myocardial infarction Suicide attempt Social History Smoking Status: Heavy Smoker (>10/day) Smokeless tobacco user: other alcohol intake: current alcohol intake frequency: other details: Rarley 3-4 a year substance use type: does not use HPI History of Present Illness History provided by: patient Chief complaint: Depression HPI: Reinier Mendoza is a 54 year old female who presents today for follow up evaluation via virtual visit. Patient reports that she has been "alright, just tired." Patient reports that her sleep has been messed up since running out of magnesium supplement but plans to get more Thursday, but felt that it did help when she was taking. Has been following with Dr. Tolentino and Dr. Benedict for pain and weakness. Has been using a walker in the past week or so after feeling more weak. Comments that she has had some drop foot in recent past. Denies any tremor. Describes pain down the back of her legs. Has been unable to shower because she feels unsteady in her shower alone. Spending a lot of time in her house due to mobility. Has been talking to a friend at night and sleeping during the day. Son has not been having seizures which has been a positive, and he has been back to work. Reinier has not been babysitting or been able to see her grandchildren. Feels like medication are doing largely well. Denies any significant side effects. This tele-medicine visit was performed via audio/video technology. Review of Systems Constitutional Reports: change in weight (some recent weight loss); Denies: fever(s) or chills Eyes Denies: change in vision or blurry vision Ears, Nose, Mouth, Throat Denies: throat pain, neck pain, ear or mastoid pain, ear discharge, change in hearing or nasal discharge Cardiovascular Denies: chest pain, palpitations or dyspnea Respiratory Denies: dyspnea, cough or wheezing Gastrointestinal Denies: abdominal pain, nausea, vomiting, diarrhea or constipation Genitourinary Denies: dysuria, urinary urgency or difficulty voiding Musculoskeletal Reports: back pain, extremity pain, limited range of motion and muscle weakness; Denies: neck pain or joint pain Integumentary/Breast Denies: rash or new lesions Neurological Denies: headache(s), dizziness or confusion Endocrine Denies: excessive sweating Hematologic/Lymphatic Denies: easy bruising or easy bleeding Allergic/Immunologic Denies: wheezing Exam Mental Status Exam - Psych Appearance adequately groomed Attitude cooperative Activity/Motor Behavior MSE activity/motor behavior finding no adventitious movements Speech regular rate, regular volume and regular prosody Mood depressed (Secondary to physical symptoms) Affect irritable (Mild) Thought Process linear, logical and coherent Thought Content no delusions and no hallucinations Suicidal Ideation none Homicidal Ideation none Attention intact Concentration intact Sensorium/Orientation awake, alert and oriented x3 Memory/Cognition other (appropriate for stated age) Insight fair Judgement fair Assessment Plan Assessment Plan (1) Bipolar 1 disorder: Plan: - Has been feeling somewhat more down secondary to back pain with associated weakness ??? We will continue psychiatric medications as previously prescribed including Abilify, Wellbutrin, Tegretol, Effexor as previous (2) PTSD (post-traumatic stress disorder): Plan: - See above Medications: Refilled aripiprazole 15 mg PO DAILY 30 tabs 2RF 30 days F31.9 - Bipolar disorder, unspecified bupropion (more content not included)... Normal [facility] L/S Spine Min 4 Viewson 02-07 L/S Spine Min 4 Views [facility] Imaging Services [address] [place] [address] L/S Spine Min 4 Views MR#: [id number] Acct: [id number] Name: REINIER MENDOZA Rep #: [id number] : 1970 F 55 From: Heidi Akers PCP: REGGIE Arias Status: DEP AMB Study: L/S Spine Min 4 Views Date of Exam: 02/24/25 Exam# [id number] Ordering Dr: Maria Luisa Taylor PROCEDURE: L/S SPINE MIN 4 VIEWS 02/24/2025 REASON FOR EXAM: BACK PAIN TECHNIQUE: L/S SPINE MIN 4 VIEWS COMPARISON: Lumbosacral spine study dated 11/20/2023 FINDINGS: There are 5 lumbar-type vertebral bodies below the last set of paired ribs. The vertebral body heights are within normal limits. There are subtle loss of the normal lordotic lumbar curvature. Mild degenerative changes of the lumbar spine are noted. There is 2 mm of retrolisthesis of L4 in relationship to L5 and 2 mm of anterior listhesis of L3 in relationship to L4. Radiopaque hardware is projected over the posterior aspect of the L4, L5 and S1 levels. There is no fracture or loosening of the radiopaque hardware. Disc space narrowing is seen involving the L3-L4, L4-L5 and L5-S1 levels. Sacrum appears unremarkable without evidence of fracture. Arteriosclerotic vascular disease of the aorta is noted. RAD/L/S Spine Min 4 Views IMPRESSION: Degenerative and postsurgical changes of the lumbar spine. Reading Location: [id number] CC: REGGIE Arroyo; MIKA Allen [employer] Supervisor: Signed Normal [facility] Orthopedic Visit Reporton Orthopedic Visit Report [facility] [address] [place] [address] OFFICE VISIT Date of Service: 02/24/25 MR#: [id number] Acct: [id number] Name: REINIER MENDOZA Rep #: [id number] : 1970 Provider: Dr. Yair Benedict MD Age/Sex: 55/F Location: [facility] Status: Signed Intake Vital Signs 01/05/25 14:26 Height 5 ft 6.5 in Intake Visit Reasons: LUMBAR SPINE Allergies azithromycin Allergy (Mild, Verified 09/27/24 13:55) Hives Sulfa (Sulfonamide Antibiotics) Allergy (Mild, Verified 09/27/24 13:55) Other Medications ???Medication ???Instructions ???Recorded ???Confirmed ???Type carvedilol 6.25 mg tablet tablet PO 09/22/22 02/24/25 Histor y ibuprofen 200 mg tablet 200 mg PO Q6H PRN 09/22/22 5 History losartan 100 mg tablet tablet PO 09/22/22 02/24/25 Histor y multivitamin 1 tab PO DAILY 09/22/22 02/24/25 H istory aspirin 81 mg tablet 81 mg PO DAILY 11/20/23 02/24/25 H istory cholecalciferol (vitamin D3) 125 125 mcg PO DAILY 11/20/23 02/24/25 History mcg (5,000 unit) capsule magnesium 250 mg tablet 500 mg PO DAILY 11/20/23 02/24/25 History nifedipine 30 mg tablet,extended 90 mg PO DAILY 11/20/23 02/24/25 H istory release turmeric root extract 500 mg 1,000 mg PO BID 11/20/23 02/24/25 History capsule zinc acetate 50 mg (zinc) capsule 50 mg PO DAILY 11/20/23 02/24/25 History metformin 500 mg tablet,extended 1,000 mg PO BID 12/17/23 02/24/25 History release 24 hr carbamazepine 200 mg tablet 300 mg (1.5 x 200 mg) PO BID 90 02/24/25 Rx days #270 tabs eszopiclone 2 mg tablet 2 mg PO QHS #15 tabs 09/27/2402/07 Rx aripiprazole 15 mg tablet 15 mg PO DAILY 30 days #30 tabs 02/24/25 Rx bupropion HCl 300 mg 24 hr tablet, 300 mg PO QAM 30 days #30 tabs 0 01/05/25 02/24/25 Rx extended release melatonin 3 mg capsule 9 mg PO HS PRN 01/05/25 02/24/25 H istory venlafaxine 150 mg 150 mg PO DAILY 30 days #30 caps 0 01/05/25 02/24/25 Rx capsule,extended release 24 hr PFSH Medical History (Updated 02/24/25 @ 12:13 by Karen Henry RN) Cervical radiculopathy Insomnia PTSD (post-traumatic stress disorder) Bipolar 1 disorder Vitamin D deficiency Stroke Pneumonia Neuropathy Hives High cholesterol Hypertension Headache Goiter Diabetes type 2, controlled Chronic bronchitis Breast lump UTI (urinary tract infection) Bone fracture History of back problems Arthritis Family History Other Alcoholism Anxiety Arthritis defect Breast cancer CVA (cerebral vascular accident) Cancer Depression Diabetes Hypertension Mental disorder Myocardial infarction Suicide attempt Social History Smoking Status: Heavy Smoker (>10/day) Smokeless tobacco user: other alcohol intake: current alcohol intake frequency: other details: Rarley 3-4 a year substance use type: does not use HPI LUMBAR SPINE Details: This documentation accurately reflects the service provided and the decisions made by me, Dr. Yair Benedict MD 02/24/25 1123. Part of today???s visit was documented by Gaby QUEZADA and Karen Henry RN, acting as scribe. REINIER MENDOZA is a 55 year old F here today for continued low back pain. She presents ambulating with a cane. She reports a few falls recently. On 12/21/24 she had a diagnostic bilateral lumbar facet injection at L2-3 L3-[address] Tolentino which gave her relief for 3 weeks. She states that she has not gotten anymore injections with Dr. Tolentino because her A1C is down and does not want to disrupt it. Dr. Tolentino told her that she should follow up to talk about surgery which is why she is here today. Dr. Tolentino has been checking her A1C which was last done on 02/03/25 and was at 7. Patient is ambulating with a cane and notes that her pain is affecting her function such as showering. She cannot go grocery shopping anymore she has her groceries delivered. She stays home mostly due to her mobility worsening. The pain is the worst down into her lateral thigh. She reports weakness in her right foot and toes. She also complains of neck pain that extends down into her arms bilaterally. She reports mini strokes in 2001. The patient is a 55-year-old female presenting with chronic back pain. The pain is described as severe and has been persistent since her previous surgery in 2005. She reports difficulty walking and frequent falls, necessitating the use of a cane for the past month and a half. The patient has a history of diabetes mellitus, which is currently managed with metformin and another unspecified medication. She has been focusing on a low carbohydrate diet to control her blood glucose levels, r (more content not included)... Normal [facility] Hemoglobin A1con 02-03-2025 HbA1c (Bld) [Mass fraction] 7.0 % High <=5.6 [facility] Comment on above: Result Comment: Norm al < 5.7 % Prediabetic 5.7 - 6.4 % Diabetic >or= 6.5 % Please note range changes. Performed By: #### L [id number] #### [facility] [address] [place], [address] MR/BMS.BPon 01-05-2025 MR/BMS.BP [facility] [address] [facility], [address] [place], [place] [address] OFFICE VISIT Date of Service: 01/05/25 MR#: [id number] Acct: [id number] Name: REINIER MENDOZA Rep #: [id number] : 1970 Provider: Dr. Demario Jin se, Age/Sex: 54/F Location: [facility] Status: Signed Intake Vital Signs 11/23/24 15:37 01/05/25 14:26 Height 5 ft 6.5 in 5 ft 6.5 in BP Intake Visit Reasons: 6 wk FU Allergies azithromycin Allergy (Mild, Verified 09/27/24 13:55) Hives Sulfa (Sulfonamide Antibiotics) Allergy (Mild, Verified 09/27/24 13:55) Other [facility] Medical History (Updated 06/08/24 @ 10:22 by Mackenzie Shrestha) Insomnia PTSD (post-traumatic stress disorder) Bipolar 1 disorder Vitamin D deficiency Stroke Pneumonia Neuropathy Hives High cholesterol Hypertension Headache Goiter Diabetes type 2, controlled Chronic bronchitis Breast lump UTI (urinary tract infection) Bone fracture History of back problems Arthritis Family History Other Alcoholism Anxiety Arthritis defect Breast cancer CVA (cerebral vascular accident) Cancer Depression Diabetes Hypertension Mental disorder Myocardial infarction Suicide attempt Social History Smoking Status: Heavy Smoker (>10/day) Smokeless tobacco user: other alcohol intake: current alcohol intake frequency: other details: Diptiley 3-4 a year substance use type: does not use HPI History of Present Illness History provided by: patient Chief complaint: Depression HPI: Reinier Mendoza is a 54 year old female who presents today for follow up evaluation via virtual visit. Patient reports that she has been "alright, but tired." Son is supposed to be seeing a neurologist in the near future for possible seizure disorder. He has still not been able to work, so Reinier has not needed to baby sit her grandson. Recently had epidural injections, and is trying to get A1c down to 7 to be approved for surgery so has been working on losing weight. Has been feeling somewhat better in regards to pain since starting Mobic. Has been able to sleep with use of melatonin 9 mg and magnesium supplement. Does overall feel "ok." Still has some poor motivation intermittently, specifically in regards to getting a shower. Denies SI/HI or AVH. Has found some benefit with restarting wellbutrin after last appointment. This tele-medicine visit was performed via audio/video technology. Review of Systems Constitutional Denies: fever(s), chills or change in weight Eyes Denies: change in vision or blurry vision Ears, Nose, Mouth, Throat Denies: throat pain, neck pain, ear or mastoid pain, ear discharge, change in hearing or nasal discharge Cardiovascular Denies: chest pain, palpitations or dyspnea Respiratory Denies: dyspnea, cough or wheezing Gastrointestinal Denies: abdominal pain, nausea, vomiting, diarrhea or constipation Genitourinary Denies: dysuria, urinary urgency or difficulty voiding Musculoskeletal Denies: back pain, neck pain, joint pain or muscle weakness Integumentary/Breast Denies: rash or new lesions Neurological Denies: headache(s), dizziness or confusion Endocrine Denies: excessive sweating Hematologic/Lymphatic Denies: easy bruising or easy bleeding Allergic/Immunologic Denies: wheezing Exam Mental Status Exam - Psych Appearance well kempt Attitude cooperative Activity/Motor Behavior MSE activity/motor behavior finding no adventitious movements Speech regular rate, regular volume and regular prosody Mood depressed (Better than previous) Affect irritable (Mild) Thought Process linear, logical and coherent Thought Content no delusions and no hallucinations Suicidal Ideation none Homicidal Ideation none Attention intact Concentration intact Sensorium/Orientation awake, alert and oriented x3 Memory/Cognition other (appropriate for stated age) Insight fair Judgement fair Assessment Plan Assessment Plan (1) Bipolar 1 disorder: Plan: - Has noticed benefits since restarting Wellbutrin however still has difficulty with motivation, we will increase to 300 mg every day of Wellbutrin -Patient was informed of the risks, benefits and likely side effects of Wellbutrin. These side effects include but are not limited to appetite suppression, headache, diaphoresis, tachycardia, nausea, and insomnia. Wellbutrin can lower the seizure threshold, if you have a history of seizure disorder or have a seizure while taking the medication, please discontinue the medication and inform office immediately. -Patient was informed of the risk, benefits, and possible side effects of antipsychotics medications. Side effects of these medications can include but are not limited to o (more content not included)... Normal [facility] Hemoglobin A1con 12-13-2024 HbA1c (Bld) [Mass fraction] 8.0 % High <=5.6 [facility] Comment on above: Result Comment: Norm al < 5.7 % Prediabetic 5.7 - 6.4 % Diabetic >or= 6.5 % Please note range changes. Performed By: #### L [id number] #### [facility] [address] [place], [place], [address] MR/BMS.BPon 11-23-2024 MR/BMS.[address], [address] [place] [address] [id number] OFFICE VISIT Date of Service: 11/23/24 MR#: [id number] Acct: [id number] Name: REINIER MENDOZA Rep #: [id number] : 1970 Provider: Dr. Demario Jin se, DO Age/Sex: 54/F Location: [facility].BPV Status: Signed Intake Vital Signs 09/27/24 13:52 10/13/24 15:09 11/23/24 15:37 Height 5 ft 6.5 in 5 ft 6.5 in 5 ft 6.5 in Weight: 236 lb BMI 37.5 BP 151/85 H Blood Pressure Location Lt brachial Position Sitting Respiration 16 Pulse 97 Pulse Source Monitor BP Intake Visit Reasons: 2mfu Allergies azithromycin Allergy (Mild, Verified 09/27/24 13:55) Hives Sulfa (Sulfonamide Antibiotics) Allergy (Mild, Verified 09/27/24 13:55) Other [facility] Medical History (Updated 06/08/24 @ 10:22 by Mackenzie Shrestha) Insomnia PTSD (post-traumatic stress disorder) Bipolar 1 disorder Vitamin D deficiency Stroke Pneumonia Neuropathy Hives High cholesterol Hypertension Headache Goiter Diabetes type 2, controlled Chronic bronchitis Breast lump UTI (urinary tract infection) Bone fracture History of back problems Arthritis Family History Other Alcoholism Anxiety Arthritis defect Breast cancer CVA (cerebral vascular accident) Cancer Depression Diabetes Hypertension Mental disorder Myocardial infarction Suicide attempt Social History Smoking Status: Heavy Smoker (>10/day) Smokeless tobacco user: other alcohol intake: current alcohol intake frequency: other details: Rarley 3-4 a year substance use type: does not use HPI History of Present Illness History provided by: patient Chief complaint: Anxiety HPI: Reinier Mendoza is a 54 year old female who presents today for follow up evaluation via virtual visit. Reports that her son recently had a seizure and she has been told they believe it was a grand mal seizure. Now has to wait until January to see a neurologist. Patient reports that she recently had a fight with her daughter in law. She has not been watching her grandson because her son is unable to work due to seizure. Sleep has been doing much better. Had been doing largely good until having fight with daughter in law. Does continue to feel somewhat depressed. Feels like her motivation is somewhat low. Has been showering about every other day but this is improved from where she was showering ever 3-4 days. Denies SI/HI or AVH. This tele-medicine visit was performed via audio/video technology. Review of Systems Constitutional Reports: change in sleep pattern (Improving in recent past); Denies: fever(s), chills or change in weight Eyes Denies: change in vision or blurry vision Ears, Nose, Mouth, Throat Denies: throat pain, neck pain, ear or mastoid pain, ear discharge, change in hearing or nasal discharge Cardiovascular Denies: chest pain, palpitations or dyspnea Respiratory Denies: dyspnea, cough or wheezing Gastrointestinal Denies: abdominal pain, nausea, vomiting, diarrhea or constipation Genitourinary Denies: dysuria, urinary urgency or difficulty voiding Musculoskeletal Denies: back pain, neck pain, joint pain or muscle weakness Integumentary/Breast Denies: rash or new lesions Neurological Denies: headache(s), dizziness or confusion Endocrine Denies: excessive sweating Hematologic/Lymphatic Denies: easy bruising or easy bleeding Allergic/Immunologic Denies: wheezing Exam Mental Status Exam - Psych Appearance well kempt Attitude agitated (Very mildly when discussing recent argument) Activity/Motor Behavior MSE activity/motor behavior finding no adventitious movements Speech regular rate, regular volume and regular prosody Mood depressed Affect irritable Thought Process linear, logical and coherent Thought Content no delusions and no hallucinations Suicidal Ideation none Homicidal Ideation none Attention intact Concentration intact Sensorium/Orientation awake, alert and oriented x3 Memory/Cognition other (appropriate for stated age) Insight fair Judgement questionable Assessment Plan Assessment Plan (1) Bipolar 1 disorder: Plan: Has had an improvement in depressive and anxious symptoms since increasing Abilify to 15 mg with does still feel depressed ??? Has had previous success with Wellbutrin however was using his monotherapy at the time. We will restart Wellbutrin 150 mg every day to assist with continued depressive symptoms. Do feel safe to use in this context given that she is on both Abilify and carbamazepine which provide some mood stabilization and seizure prophylaxis -Patient was informed of the risks, benefits and likely side effects of Wellbutrin. These side effects incl (more content not included)... Normal [facility] BI TRANSFER OF OUTSIDE FILMS on 10-24-2024 BI TRANSFER OF OUTSIDE FILMS Outside images for comparison or treatment purposes, not interpreted by Radiologists. Normal [facility] Study Interpretation of outs iwona studyon 10-24-2024 Outside images for comparison or treatment purposes, not interpreted by Radiologists. IMAGING MR/BMS.BPon 10-13-2024 MR/BMS.[address], [address] [place] [address] OFFICE VISIT Date of Service: 10/13/24 MR#: [id number] Acct: [id number] Name: REINIER MENDOZA Rep #: [id number] : 1970 Provider: Dr. Demario Jin se, DO Age/Sex: 54/F Location: [facility].BPV Status: Signed Intake Vital Signs 09/27/24 13:52 10/13/24 15:09 Height 5 ft 6.5 in 5 ft 6.5 in Weight: 236 lb BMI 37.5 BP 151/85 H Blood Pressure Location Lt brachial Position Sitting Respiration 16 Pulse 97 Pulse Source Monitor BP Intake Visit Reasons: acute visit Allergies azithromycin Allergy (Mild, Verified 09/27/24 13:55) Hives Sulfa (Sulfonamide Antibiotics) Allergy (Mild, Verified 09/27/24 13:55) Other [facility] Medical History (Updated 06/08/24 @ 10:22 by Mackenzie Shrestha) Insomnia PTSD (post-traumatic stress disorder) Bipolar 1 disorder Vitamin D deficiency Stroke Pneumonia Neuropathy Hives High cholesterol Hypertension Headache Goiter Diabetes type 2, controlled Chronic bronchitis Breast lump UTI (urinary tract infection) Bone fracture History of back problems Arthritis Family History Other Alcoholism Anxiety Arthritis defect Breast cancer CVA (cerebral vascular accident) Cancer Depression Diabetes Hypertension Mental disorder Myocardial infarction Suicide attempt Social History Smoking Status: Heavy Smoker (>10/day) Smokeless tobacco user: other alcohol intake: current alcohol intake frequency: other details: Rarley 3-4 a year substance use type: does not use HPI History of Present Illness History provided by: patient Chief complaint: Insomnia/hypomania HPI: Reinier Mendoza is a 54 year old female who presents today for follow up evaluation via virtual visit. Patient reports that she has had significant issues with getting to sleep, but still feels tired all the time. Has tried Lunesta and felt that is has not helped. Feels like she might be manic. Doesn't feel like she has had a lot of energy. Did make an impulsive decision of buying a couch however it didn't cost a significant amount of money. Gautier like she "Had to have" the couch. Does feel like he thoughts are somewhat racing. Moved her furniture around at 7 am the other morning. Denies SI HI or AVH. This tele-medicine visit was performed via audio/video technology. Review of Systems Constitutional Reports: change in sleep pattern (Reduced); Denies: fever(s), chills or change in weight Eyes Denies: change in vision or blurry vision Ears, Nose, Mouth, Throat Denies: throat pain, neck pain, ear or mastoid pain, ear discharge, change in hearing or nasal discharge Cardiovascular Denies: chest pain, palpitations or dyspnea Respiratory Denies: dyspnea, cough or wheezing Gastrointestinal Denies: abdominal pain, nausea, vomiting, diarrhea or constipation Genitourinary Denies: dysuria, urinary urgency or difficulty voiding Musculoskeletal Denies: back pain, neck pain, joint pain or muscle weakness Integumentary/Breast Denies: rash or new lesions Neurological Denies: headache(s), dizziness or confusion Endocrine Denies: excessive sweating Hematologic/Lymphatic Denies: easy bruising or easy bleeding Allergic/Immunologic Denies: wheezing Exam Mental Status Exam - Psych Appearance casually dressed Attitude calm Activity/Motor Behavior MSE activity/motor behavior finding no adventitious movements Speech regular rate, regular volume and regular prosody Mood elevated Affect full range Thought Process linear, logical and coherent Thought Content no delusions and no hallucinations Suicidal Ideation none Homicidal Ideation none Attention intact Concentration intact Sensorium/Orientation awake, alert and oriented x3 Memory/Cognition other (appropriate for stated age) Insight fair Judgement questionable Assessment Plan Assessment Plan (1) Bipolar 1 disorder: Plan: We will increase Abilify to 15 mg every day secondary to concern for hypomania/shea symptoms -Patient was informed of the risk, benefits, and possible side effects of antipsychotics medications. Side effects of these medications can include but are not limited to orthostatic hypotension (low blood pressure), weight gain, metabolic side effects, extrapyramidal side effects, and tardive dyskinesia. If you notice any abnormal movements including involuntary movement of muscles of face, lips, torso or legs please contact the office immediately. -As symptoms are relatively mild at this time do not believe hospitalization is appropriate (2) PTSD (post-traumatic stress disorder): Plan: - See above Medications: Changed From aripiprazole 7.5 m (more content not included)... Normal [facility] BI MAMMO BILATERAL SCREENING TOMOSYNTHESISon 10-11-2024 BI MAMMO BILATERAL SCREENING TOMOSYNTHESIS Interpreted By: Cricket Whelan, STUDY: BI MAMMO BILATERAL SCREENING TOMOSYNTHESIS; 10/11/2024 2:22 pm ACCESSION NUMBER(S): [id number] ORDERING CLINICIAN: SUZANNE ARROYO INDICATION: Screening. COMPARISON: None. FINDINGS: CC and MLO 2D digital mammograms and digital breast tomosynthesis images were obtained of the bilateral breasts. 3-D volume images were reconstructed in 4 views at an independent workstation as 1 mm slices through the breasts in both the CC and MLO projections. Density: The breasts are almost entirely fatty. No discrete mass or focal asymmetry is identified. No suspicious microcalcifications or foci of architectural distortion are seen. This study was interpreted with CAD. IMPRESSION: No mammographic evidence of malignancy. BI-RADS CATEGORY: BI-RADS Category: 1 Negative. Recommendation: Annual Screening. Recommended Date: 1 Year. Laterality: Bilateral. MACRO: None Signed by: Cricket Whelan 10/20/2024 8:42 AM Dictation workstation: [id number] [facility] MR/BMS.BPon 09-27-2024 MR/BMS.BP [facility] [address] [place] [address], [address] [place] [address] OFFICE VISIT Date of Service: 09/27/24 MR#: [id number] Acct: [id number] Name: REINIER MENDOZA Rep #: [id number] : 1970 Provider: Dr. Demario Jin se, DO Age/Sex: 54/F Location: [facility].BP Status: Signed Intake Vital Signs 07/26/24 11:17 09/27/24 13:52 Height 5 ft 6.5 in 5 ft 6.5 in Weight: 236 lb BMI 37.5 BP 151/85 H Blood Pressure Location Lt brachial Position Sitting Respiration 16 Pulse 97 Pulse Source Monitor BP Intake Visit Reasons: 2mfu Accompanied by: Self Allergies azithromycin Allergy (Mild, Verified 09/27/24 13:55) Hives Sulfa (Sulfonamide Antibiotics) Allergy (Mild, Verified 09/27/24 13:55) Other Medications ???Medication ???Instructions ???Recorded ???Confirmed ???Type carvedilol 6.25 mg tablet tablet PO 09/22/22 09/27/24 Histor y ibuprofen 200 mg tablet 200 mg PO Q6H PRN 09/22/22 5 History losartan 100 mg tablet tablet PO 09/22/22 09/27/24 Histor y multivitamin 1 tab PO DAILY 09/22/22 09/27/24 H istory aspirin 81 mg tablet 81 mg PO DAILY 11/20/23 09/27/24 H istory cholecalciferol (vitamin D3) 125 125 mcg PO DAILY 11/20/23 09/27/24 History mcg (5,000 unit) capsule magnesium 250 mg tablet 500 mg PO DAILY 11/20/23 09/27/24 History nifedipine 30 mg tablet,extended 90 mg PO DAILY 11/20/23 09/27/24 H istory release turmeric root extract 500 mg 1,000 mg PO BID 11/20/23 09/27/24 History capsule zinc acetate 50 mg (zinc) capsule 50 mg PO DAILY 11/20/23 09/27/24 History metformin 500 mg tablet,extended 1,000 mg PO BID 12/17/23 09/27/24 History release 24 hr aripiprazole 15 mg tablet 7.5 mg (1/2 x 15 mg) PO DAILY 30 0 09/27/24 09/27/24 Rx days #15 tabs carbamazepine 200 mg tablet 300 mg (1.5 x 200 mg) PO BID 90 09/27/24 Rx days #270 tabs eszopiclone 2 mg tablet 2 mg PO QHS #15 tabs 09/27/2409/10 Rx melatonin 3 mg capsule 12 mg PO HS PRN 09/27/24 09/27/24 History venlafaxine 150 mg 150 mg PO DAILY 30 days #30 caps 0 09/27/24 09/27/24 Rx capsule,extended release 24 hr PFSH Medical History (Updated 06/08/24 @ 10:22 by Mackenzie Shrestha) Insomnia PTSD (post-traumatic stress disorder) Bipolar 1 disorder Vitamin D deficiency Stroke Pneumonia Neuropathy Hives High cholesterol Hypertension Headache Goiter Diabetes type 2, controlled Chronic bronchitis Breast lump UTI (urinary tract infection) Bone fracture History of back problems Arthritis Family History Other Alcoholism Anxiety Arthritis defect Breast cancer CVA (cerebral vascular accident) Cancer Depression Diabetes Hypertension Mental disorder Myocardial infarction Suicide attempt Social History Smoking Status: Heavy Smoker (>10/day) Smokeless tobacco user: other alcohol intake: current alcohol intake frequency: other details: Diptiley 3-4 a year substance use type: does not use HPI History of Present Illness History provided by: patient HPI: Reinier Mendoza is a 54 year old female who presents today for follow up evaluation. Has been sleeping somewhat better in the last few months, but not as good as she should be. Was going up to 2-3 days largely without any sleep. Son was seasonal work so didn't need to watch her grandson. 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 Son is having another son who is due in February. Has cut back how much venlafaxine she is taking and feels like this has led to her feeling significantly better. Specifically has only been taking 150 mg, and feels like she has a ringing in her head that has been improving. Has continued to take Lunesta, but has not been taking trazodone. Has gained a few pounds but no significant amount of weight. Has had some fleeting thoughts of suicide secondary to holiday stress, however denies any intent or plan. Has been doing some Facebook dating which has been fair. Feels like aripiprazole and carbamazepine are working largely well. Balance and dizziness has improved with reduction in medication therapies. Denies AVH. Pain has been somewhat bad in recent past. Review of Systems Constitutional Reports: change in sleep pattern (sleep); Denies: fever(s), chills or change in weight Eyes Denies: change in vision or blurry vision Ears, Nose, Mouth, Throat Denies: throat pain, neck pain, ear or mastoid pain, ear discharge, change in hearing or nasal discharge Cardiovascular Denies: chest pain, palpitations or dyspnea Respiratory Denies: dyspnea, cough or wheezing Gastrointestinal Denies: abdominal pain, nausea, vomiting, diarrhea or constipation Genitourinary Denies: dysuria, urinary urge (more content not included)... Normal [facility] MR/BMS.BPon 07-26-2024 MR/BMS.[facility] [address] [place] [address], [address] [place] [address] OFFICE VISIT Date of Service: 07/26/24 MR#: [id number] Acct: [id number] Name: REINIER MENDOZA Rep #: [id number] : 1970 Provider: Dr. Demario Jin se, DO Age/Sex: 54/F Location: [facility].BPV Status: Signed Intake Vital Signs 05/26/24 13:04 07/26/24 11:17 Height 5 ft 6.5 in 5 ft 6.5 in BP Intake Visit Reasons: 2 M FU Allergies azithromycin Allergy (Mild, Verified 12/17/23 13:29) Hives Sulfa (Sulfonamide Antibiotics) Allergy (Mild, Verified 12/17/23 13:29) Other [facility] Medical History (Updated 06/08/24 @ 10:22 by Mackenzie Shrestha) Insomnia PTSD (post-traumatic stress disorder) Bipolar 1 disorder Vitamin D deficiency Stroke Pneumonia Neuropathy Hives High cholesterol Hypertension Headache Goiter Diabetes type 2, controlled Chronic bronchitis Breast lump UTI (urinary tract infection) Bone fracture History of back problems Arthritis Family History Other Alcoholism Anxiety Arthritis defect Breast cancer CVA (cerebral vascular accident) Cancer Depression Diabetes Hypertension Mental disorder Myocardial infarction Suicide attempt Social History Smoking Status: Heavy Smoker (>10/day) Smokeless tobacco user: other alcohol intake: current alcohol intake frequency: other details: Rarley 3-4 a year substance use type: does not use HPI History of Present Illness History provided by: patient HPI: Reinier Mendoza is a 54 year old female who presents today for follow up evaluation via virtual video visit. Patient reports that she has been "tired." About every 2-3 nights will sleep well and other nights will sleeps much worse. Even with Lunesta doesn't feel like she noticed a significant improvement in sleep. Has even tried a THC pen and felt it helped for a few nights then stopped working. Does feel "ok" when she gets a good night sleep. Feels as though many of her mood concerns related to her daily fatigue and lack of good quality sleep. Denies any SI HI or AVH. Denies any significant side effects at this time. This tele-medicine visit was performed via audio/video technology. Review of Systems Constitutional Reports: change in sleep pattern (Reduced); Denies: fever(s), chills or change in weight Eyes Denies: change in vision or blurry vision Ears, Nose, Mouth, Throat Denies: throat pain, neck pain, ear or mastoid pain, ear discharge, change in hearing or nasal discharge Cardiovascular Denies: chest pain, palpitations or dyspnea Respiratory Denies: dyspnea, cough or wheezing Gastrointestinal Denies: abdominal pain, nausea, vomiting, diarrhea or constipation Genitourinary Denies: dysuria, urinary urgency or difficulty voiding Musculoskeletal Denies: back pain, neck pain, joint pain or muscle weakness Integumentary/Breast Denies: rash or new lesions Neurological Denies: headache(s), dizziness or confusion Endocrine Denies: excessive sweating Hematologic/Lymphatic Denies: easy bruising or easy bleeding Allergic/Immunologic Denies: wheezing Exam Mental Status Exam - Psych Appearance casually dressed Attitude calm Activity/Motor Behavior MSE activity/motor behavior finding no adventitious movements Speech regular rate, regular volume and regular prosody Mood other ("Tired") Affect full range Thought Process linear, logical and coherent Thought Content no delusions and no hallucinations Suicidal Ideation none Homicidal Ideation none Attention intact Concentration intact Sensorium/Orientation awake, alert and oriented x3 Memory/Cognition other (appropriate for stated age) Insight fair Judgement good Assessment Plan Assessment Plan (1) Bipolar 1 disorder: Plan: - Continues to sleep poorly despite trialing several hypnotic medications ??? We will try a moderate reduction in carbamazepine use. Autoinduction properties of carbamazepine may be causing an increase activity at cyp 3a4 leading to a more rapid metabolism of aripiprazole and eszopiclone and to some minor degree venlafaxine. Therefore by reducing medication we can reduce the level of enzyme induction and potentially lead to better efficacy. - continue effexor at 300 mg every day - continue abilify (2) PTSD (post-traumatic stress disorder): Plan: - See above Medications: Changed From carbamazepine take 2 tablets by mouth twice a day 120 tabs 2RF To carbamazepine 300 mg (1.5 x 200 mg) PO BID 90 days 270 tabs 2RF Refilled aripiprazole 7.5 mg (1/2 x 15 mg) PO DAILY 30 days 15 tabs 2RF F31.9 - Bipolar disorder, unspecified venlafaxine ER 300 mg (2 x 150 mg) PO DAILY 30 days 60 caps 2RF F31.9 - Bipolar disorde (more content not included)... Normal [facility] Bacteria identifiedon 2023 Bacteria identified Cx Nom (U) Test: Urine Culture Specimen Source: Clean Catch/Voided Specimen Type: Urine Specimen Date: 07/08/2024 1051 Result Date: 07/11/2024 0926 Result Status: Final result Abnormal: Yes Resulting Lab: [facility] [address] [address] CULTURE >=100,000 CFU/mL Klebsiella pneumoniae/variicola (Abnormal) SUSCEPTIBILITY Klebsiella pneumoniae/variicola METHOD MICROSCAN - AMOXICILLIN/CLAVULANATE <=8/4 ug/ml Susceptible AMPICILLIN >16.000 ug/ml Resistant AMPICILLIN/SULBACTAM <=4/2 ug/ml Susceptible CEFAZOLIN <=2 ug/ml Susceptible CEFAZOLIN (UNCOMPLICATED UTIS ONLY) <=2 ug/ml Susceptible CIPROFLOXACIN <=0.250 ug/ml Susceptible GENTAMICIN <=2.000 ug/ml Susceptible NITROFURANTOIN <=32 ug/ml Susceptible PIPERACILLIN/TAZOBACTAM <=8.000 ug/ml Susceptible TRIMETHOPRIM/SULFAMETHOXA ZOLE <=2/38 ug/ml Susceptible Abnormal [facility] Comment on above: Performed By: #### 6 30-4 #### ANTONIETA Wagner ([id number]) [facility] ([facility]) [address] [place] [address] POCT UA Automated manually r esultedOrdered By: Tashi Mays on 07-08-2024 Appearance (U) Cloudy Abnormal Clear [facility] Glucose Test strip (U) [Mass/Vol] 100 (1+) Abnormal NEGATIVE mg/dl [facility] Hemoglobin Ql (U) Negative NEGATIVE [facility] Interpretation and review of laboratory results Abnormal [facility] Leukocyte esterase Test strip Ql (U) SMALL (1+) Abnormal NEGATIVE [facility] Nitrite Ql (U) Positive Abnormal NEGATIVE [facility] pH (U) 6.5 [pH] No Reference Range Established [facility] POC Bilirubin, Urine Negative NEGATIVE [facility] POC Color, Urine Yellow Straw, Yellow, Light-Yellow [facility] POC Ketones, Urine Negative NEGATIVE mg/dl [facility] POC Protein, Urine 300 (3+) Abnormal NEGATIVE, 30 (1+) mg/dl [facility] POC Specific [place], Urine 1.020 1.005 - 1.035 [facility] POC Urobilinogen, Urine 0.2 0.2, 1.0 EU/DL [facility] Basic metabolic 2000 panelon 06-20-2024 Anion gap [Moles/Vol] 12 mmol/L Normal 10-20 [facility] Comment on above: Performed By: #### 2 4321-2 #### VELIA HAUSER ([id number]) [facility] ([facility]) [address] [place] [address] Calcium [Mass/Vol] 9.2 mg/dL Normal 8.6-10.3 [facility] Comment on above: Performed By: #### 2 4321-2 #### VELIA HAUSER ([id number]) [facility] ([facility]) [address] [place] [address] Chloride [Moles/Vol] 98 mmol/L Normal 98-107 [facility] Comment on above: Performed By: #### 2 4321-2 #### VELIA HAUSER ([id number]) [facility] ([facility]) [address] [place] [address]98 CO2 [Moles/Vol] 25 mmol/L Normal 21-32 [facility] Comment on above: Performed By: #### 2 4321-2 #### VELIA HAUSER ([id number]) [facility] ([facility]) [address] [place] [address] Creatinine [Mass/Vol] 0.52 mg/dL Normal 0.50-1.05 [facility] Comment on above: Performed By: #### 2 4321-2 #### VELIA HAUSER ([id number]) [facility] ([facility]) [address] [place] [address] 41684 GFR/1.73 sq M.predicted MDRD (S/P/Bld) [Vol rate/Area] mL/min/{1.73_m2} Normal >60 [facility] Comment on above: Result Comment: Calc ulations of estimated GFR are performed using the 2020 CKD-EPI Study Refit equation without the race variable for the IDMS-Traceable creatinine methods. https://jasn.asnjournals.org/content/early/ASN.7330347 988 Performed By: #### 2 4321-2 #### VELIA HAUSER ([id number]) [facility] ([facility]) [address] [place] [address] Glucose [Mass/Vol] 185 mg/dL High 74-99 [facility] Comment on above: Performed By: #### 2 4321-2 #### VELIA HAUSER ([id number]) [facility] ([facility]) [address] [place] [address] Potassium [Moles/Vol] 4.3 mmol/L Normal 3.5-5.3 [facility] Comment on above: Performed By: #### 2 4321-2 #### VELIA HAUSER ([id number]) [facility] ([facility]) [address] [place] [address] 36849 Sodium [Moles/Vol] 131 mmol/L Low 136-145 [facility] Comment on above: Performed By: #### 2 4321-2 #### VELIA HAUSER ([id number]) [facility] ([facility]) [address] [place] [address] Urea nitrogen [Mass/Vol] 12 mg/dL Normal 6-23 [facility] Comment on above: Performed By: #### 2 4321-2 #### VELIA HAUSER ([id number]) [facility] ([facility]) [address] [place] [address]16 HbA1c (Bld) [Mass fraction]o n 06-20-2024 Average glucose Estimated from glycated hemoglobin (Bld) [Mass/Vol] 146 mg/dL Normal Not Established [facility] Comment on above: Order Comment: Diagn osis of Diabetes-Adults Non-Diabetic: < or = 5.6% Increased risk for developing diabetes: 5.7-6.4% Diagnostic of diabetes: > or = 6.5% Performed By: #### 4 548-4 #### ANTONIETA Wagner ([id number]) [facility] ([facility]) [address] [place] [address] Hemoglobin A1c/Hemoglobin.to zulema 06-20-2024 HbA1c (Bld) [Mass fraction] 6.7 % High See comment [facility] Comment on above: Order Comment: Diagn osis of Diabetes-Adults Non-Diabetic: < or = 5.6% Increased risk for developing diabetes: 5.7-6.4% Diagnostic of diabetes: > or = 6.5% Performed By: #### 4 548-4 #### ANTONIETA Wagner ([id number]) [facility] ([facility]) [address] [place] [address] Basic metabolic 2000 panelon 06-17-2024 Anion gap [Moles/Vol] 12 mmol/L 10 - 20 mmol/L [facility] Calcium [Mass/Vol] 9 mg/dL 8.6 - 10. 3 mg/dL [facility] Chloride [Moles/Vol] 93 mmol/L Low 98 - 10 7 mmol/L [facility] CO2 [Moles/Vol] 24 mmol/L 21 - 32 mmol/L [facility] Creatinine [Mass/Vol] 0.58 mg/dL 0.50 - 1.05 mg/dL [facility] eGFR - PINF [facility] Comment on above: Calculations of nick mated GFR are performed using the 2020 CKD-EPI Study Refit equation without the race variable for the IDMS-Traceable creatinine methods. https://jasn.asnjournals.org/content/early/ASN.0298946 988 Glucose [Mass/Vol] 151 mg/dL High 74 - 99 mg/dL [facility] Interpretation and review of laboratory results Abnormal [facility] Potassium [Moles/Vol] 4.1 mmol/L 3.5 - 5.3 mmol/L [facility] Sodium [Moles/Vol] 125 mmol/L Low 136 - 145 mmol/L [facility] Urea nitrogen [Mass/Vol] 15 mg/dL 6 - 23 mg/dL [facility] CBC W Auto Differential pane l (Bld)on 06-17-2024 Basophils (Bld) [#/Vol] 0.02 10*3/uL [facility] Basophils/100 WBC (Bld) 0.3 % 0.0 - 2.0 % [facility] Eosinophils (Bld) [#/Vol] 0.03 10*3/uL [facility] Eosinophils/100 WBC (Bld) 0.5 % 0.0 - 6.0 % [facility] Erythrocyte distribution width (RBC) [Ratio] 12.9 % 11.5 - 14.5 % [facility] Hematocrit (Bld) [Volume fraction] 34.9 % Low 36.0 - 46.0 % [facility] Hemoglobin (Bld) [Mass/Vol] 12.3 g/dL 12.0 - 16.0 g/dL [facility] Immature granulocytes (Bld) [#/Vol] 0.04 10*3/uL [facility] Immature granulocytes/100 WBC (Bld) 0.6 % 0.0 - 0.9 % [facility] Comment on above: Immature Granulocyte Count (IG) includes promyelocytes, myelocytes and metamyelocytes but does not include bands. Percent differential counts (%) should be interpreted in the context of the absolute cell counts (cells/UL). Interpretation and review of laboratory results Abnormal [facility] Lymphocytes (Bld) [#/Vol] 1.39 10*3/uL [facility] Lymphocytes/100 WBC (Bld) 22 % 13.0 - 44.0 % [facility] MCH (RBC) [Entitic mass] 29.6 pg 26.0 - 34.0 pg [facility] MCHC (RBC) [Mass/Vol] 35.2 g/dL 32.0 - 36.0 g/dL [facility] MCV (RBC) [Entitic vol] 84 fL 80 - 100 fL [facility] Monocytes (Bld) [#/Vol] 0.58 10*3/uL [facility] Monocytes/100 WBC (Bld) 9.2 % 2.0 - 10.0 % [facility] Neutrophils (Bld) [#/Vol] 4.25 10*3/uL [facility] Comment on above: Percent differential counts (%) should be interpreted in the context of the absolute cell counts (cells/uL). Neutrophils/100 WBC (Bld) 67.4 % 40.0 - 80.0 % [facility] Nucleated RBC/100 WBC (Bld) [Ratio] 0 % [facility] Platelets (Bld) [#/Vol] 215 10*3/uL [facility] RBC (Bld) [#/Vol] 4.15 10*6/uL [facility] WBC (Bld) [#/Vol] 6.3 10*3/uL [facility] CT Abdomen and Pelvis W cont rast Jose Angel 06-17-2024 No acute findings, o nly one indeterminate small renal lesion on either side that are probably hemorrhagic cysts but are technically indeterminate, for which I recommend nonemergent outpatient follow-up MRI kidneys without and with intravenous contrast No stone anywhere in the urinary tract No sign of recent stone transit out of the urinary tract. No hydroureteronephrosis or periureteric inflammatory fat stranding on either side No compelling CT evidence for acute cystitis No alternate source for pain outside the urinary tract: No acute appendicitis, diverticulitis or other colitis No bowel obstruction, perforation, abscess or free fluid No acute pancreatitis No acute renal or splenic infarct No gallbladder or biliary duct dilation No abdominal aortic aneurysm No acute hemorrhage or hematoma, retroperitoneal or otherwise MACRO: None Signed by: Bren Banks 06/17/2024 1:55 PM Dictation workstation: [id number] [facility] MMODAL Interpreted By: Bren Wall, STUDY: CT ABDOMEN PELVIS W IV CONTRAST; 06/17/2024 1:44 pm INDICATION: Signs/Symptoms:bilat flank pain, urinary symptoms. COMPARISON: None. ACCESSION NUMBER(S): [id number] ORDERING CLINICIAN: KARISSA ELLINGTON TECHNIQUE: CT of the abdomen and pelvis from the lung bases through the symphysis pubis after the uneventful administration of intravenous contrast (70 mL Omnipaque 350). No oral contrast. FINDINGS: LOWER CHEST: No acute airspace disease. BONES: No acute skeletal findings. LIVER: Normal. No enlargement or evidence of cirrhosis or fatty change. No mass or other suspect lesion. SPLEEN: Normal. No enlargement, mass or evidence of splenic vein thrombosis. PANCREAS: Normal. No CT evidence of acute or chronic pancreatitis. No duct dilation. No mass. GALLBLADDER: Normal CT appearance. No dilation, calcified, or gas-containing stones. Other types of gallstones could be occult on CT and detectable only by ultrasound. BILE DUCTS: Normal. No biliary duct dilation. ADRENAL GLANDS: Normal. No nodule or mass. KIDNEYS AND URETERS: No hydronephrosis or stone on either side No compelling CT evidence for acute pyelonephritis on either side noting no imaging study of any variety can exclude acute pyelonephritis Incidental renal lesions: Well above water attenuation technically indeterminate subcentimeter right renal lesion laterally between the poles, axial series 2, image 65; coronal series 5, image 58. Immediately medial to it is an even smaller lesion too small to characterize and there is another too small to characterize lesion laterally towards the lower pole right kidney 1 cm or smaller, just slightly above water attenuation left renal lesion, same axial series image 56; same coronal series image 66 LYMPH NODES: No adenopathy, intraperitoneal, retroperitoneal, pelvic or otherwise APPENDIX: Normal. Not dilated, thick walled or in any other way inflamed in appearance. No inflammatory change about the appendix. COLON: Normal. No sign of acute diverticulitis or other colitis. No annular constricting mass. SMALL BOWEL: Normal. No small bowel dilation or any other sign of small bowel obstruction. No sign of active inflammatory bowel disease. STOMACH / DUODENUM: Grossly normal by CT which has limited sensitivity and specificity for the stomach and duodenum. RETROPERITONEUM: Normal. No acute hemorrhage or inflammatory change. Lymph nodes in a separate dedicated section. OMENTUM, MESENTERY AND PERITONEAL SPACES: Free intraperitoneal air: Negative Free intraperitoneal fluid: Negative Abscess: Negative Other: n/a URINARY BLADDER: Normal. No wall thickening, large diverticula, radiodense stone or surrounding inflammatory change. PELVIS: No obvious acute adnexal abnormality by CT. Calcified fibroid at the uterine fundus measures up to 3.7 cm VASCULATURE: Aortic and iliac atherosclerotic calcifications without aneurysm or other acute finding. No high grade stenosis of the major abdominal aortic branch vessels. Portal venous system patent. ABDOMINAL WALL: Hernia: Negative Other: No acute or contributory abnormality. MMODAL Bren Banks MD - 06/17/2024 Interpreted By: Bren Banks, STUDY: CT ABDOMEN PELVIS W IV CONTRAST; 06/17/2024 1:44 pm INDICATION: Signs/Symptoms:bilat flank pain, urinary symptoms. COMPARISON: None. ACCESSION NUMBER(S): [id number] ORDERING CLINICIAN: KARISSA ELLINGTON TECHNIQUE: CT of the abdomen and pelvis from the lung bases through the symphysis pubis after the uneventful administration of intravenous contrast (70 mL Omnipaque 350). No oral contrast. FINDINGS: LOWER CHEST: No acute airspace disease. BONES: No acute skeletal findings. LIVER: Normal. No enlargement or evidence of cirrhosis or fatty change. No mass or other suspect lesion. SPLEEN: Normal. No enlargement, mass or evidence of splenic vein thrombosis. PANCREAS: Normal. No CT evidence of acute or chronic pancreatitis. No duct dilation. No mass. GALLBLADDER: Normal CT appearance. No dilation, calcified, or gas-containing stones. Other types of gallstones could be occult on CT and detectable only by ultrasound. BILE DUCTS: Normal. No biliary duct dilation. ADRENAL GLANDS: Normal. No nodule or mass. KIDNEYS AND URETERS: No hydronephrosis or stone on either side No compelling CT evidence for acute pyelonephritis on either side noting no imaging study of any variety can exclude acute pyelonephritis Incidental renal lesions: Well above water attenuation technically indeterminate subcentimeter right renal lesion laterally between the poles, axial series 2, image 65; coronal series 5, image 58. Immediately medial to it is an even smaller lesion too small to characterize and there is another too small to characterize lesion laterally towards the lower pole right kidney 1 cm or smaller, just slightly above water attenuation left renal lesion, same axial series image 56; same coronal series image 66 LYMPH NODES: No adenopathy, intraperitoneal, retroperitoneal, pelvic or otherwise APPENDIX: Normal. Not dilated, thick walled or in any other way inflamed in appearance. No inflammatory change about the appendix. COLON: Normal. No sign of acute diverticulitis or other colitis. No annular constricting mass. SMALL BOWEL: Normal. No small bowel dilation or any other sign of small bowel obstruction. No sign of active inflammatory bowel disease. STOMACH / DUODENUM: Grossly normal by CT which has limited sensitivity and specificity for the stomach and duodenum. RETROPERITONEUM: Normal. No acute hemorrhage or inflammatory change. Lymph nodes in a separate dedicated section. OMENTUM, MESENTERY AND PERITONEAL SPACES: Free intraperitoneal air: Negative Free intraperitoneal fluid: Negative Abscess: Negative Other: n/a URINARY BLADDER: Normal. No wall thickening, large diverticula, radiodense stone or surrounding inflammatory change. PELVIS: No obvious acute adnexal abnormality by CT. Calcified fibroid at the uterine fundus measures up to 3.7 cm VASCULATURE: Aortic and iliac atherosclerotic calcifications without aneurysm or other acute finding. No high grade stenosis of the major abdominal aortic branch vessels. Portal venous system patent. ABDOMINAL WALL: Hernia: Negative Other: No acute or contributory abnormality. IMPRESSION: No acute findings, only one indeterminate small renal lesion on either side that are probably hemorrhagic cysts but are technically indeterminate, for which I recommend nonemergent outpatient follow-up MRI kidneys without and with intravenous contrast No stone anywhere in the urinary tract No sign of recent stone transit out of the urinary tract. No hydroureteronephrosis or periureteric inflammatory fat stranding on either side No compelling CT evidence for acute cystitis No alternate source for pain outside the urinary tract: No acute appendicitis, diverticulitis or other colitis No bowel obstruction, perforation, abscess or free fluid No acute pancreatitis No acute renal or splenic infarct No gallbladder or biliary duct dilation No abdominal aortic aneurysm No acute hemorrhage or hematoma, retroperitoneal or otherwise MACRO: None Signed by: Bren Banks 06/17/2024 1:55 PM Dictation workstation: [id number] [facility] Work Phone: Radiology Study observation (narrative) [facility] Work Phone: CT Abdomen and Pelvis W cont rast IVOrdered By: Bren Banks on 06-17-2024 [facility] Work Phone: Hepatic function 2000 panelo n 06-17-2024 Albumin BCP dye [Mass/Vol] 4 g/dL 3.4 - 5.0 g/dL [facility] ALP [Catalytic activity/Vol] 54 U/L 33 - 110 U/L [facility] ALT With P-5'-P [Catalytic activity/Vol] 26 U/L 7 - 45 U/L [facility] Comment on above: Patients treated wit h Sulfasalazine may generate falsely decreased results for ALT. AST With P-5'-P [Catalytic activity/Vol] 24 U/L 9 - 39 U/L [facility] Bilirubin [Mass/Vol] 0.4 mg/dL 0.0 - 1 .2 mg/dL [facility] Bilirubin.direct [Mass/Vol] 0.1 mg/dL 0.0 - 0.3 mg/dL [facility] Protein [Mass/Vol] 6.9 g/dL 6.4 - 8.2 g/dL [facility] Lipaseon 06-17-2024 Lipase [Catalytic activity/Vol] 44 U/L 9 - 82 U/L [facility] Lipase [Catalytic activity/V ol]on 06-17-2024 Venipuncture immedia tely after or during the administration of Metamizole may lead to falsely low results. Testing should be performed immediately prior to Metamizole dosing. [facility] No Panel Informationon 06-17 Interpretation and review of laboratory results Normal [facility] Interpretation and review of laboratory results Abnormal [facility] Urinalysis complete W Reflex Culture panel (U)on 06-17-2024 Appearance (U) Clear Clear [facility] Bilirubin (U) [Mass/Vol] Negative NEGATIVE [facility] Color (U) Yellow Light-Yellow , Yellow, Dark-Yellow [facility] Glucose Auto test strip (U) [Mass/Vol] Normal Normal mg/dL [facility] Ketones (U) [Mass/Vol] Negative NEGATIVE mg/dL [facility] Leukocyte esterase Auto test strip Ql (U) 250 Paulina/ L Abnormal NEGATIVE [facility] Nitrite Auto test strip Ql (U) Negative NEGATIVE [facility] pH (U) 6.5 [pH] 5.0, 5.5, 6.0, 6.5, 7.0, 7.5, 8.0 [facility] Protein (U) [Mass/Vol] 70 (1+) Abnormal NEGATIVE, 10 (TRACE), 20 (TRACE) mg/dL [facility] RBC (U) [#/Vol] Negative NEGATIVE [facility] Specific gravity (U) [Rel density] 1.027 1.005 - 1.035 [facility] Urobilinogen (U) [Mass/Vol] Normal Normal mg/dL [facility] Urinalysis microscopic panel Auto Ql (U)on 06-17-2024 Bacteria Auto (Urine sed) [#/Area] 1+ Abnormal NONE SEEN /HPF [facility] Crystals.amorphous Computer assisted (U) [#/Area] 1+ NONE, 1+, 2+ /HPF [facility] Epithelial cells.squamous Auto (Urine sed) [#/Area] 1-9 (SPARSE) Reference range not established. /HPF [facility] RBC Auto (Urine sed) [#/Area] 3-5 NONE, 1-2, 3-5 /HPF [facility] Transitional cells Computer assisted (U) [#/Area] 1-2 (FEW) Reference range not established. /HPF [facility] WBC Auto (Urine sed) [#/Area] 21-50 Abnormal 1-5, NONE /HPF [facility] POCT SARS-COV-2/FLU/RSV PCR SYMPTOMATIC manually resultedOrdered By: Thalia Michelle on 04-25-2024 FLUAV RNA KATHERIN+probe Ql (Resp) Not detected Not Detected [facility] FLUBV RNA KATHERIN+probe Ql (Resp) Not detected Not Detected [facility] RSV RNA KATHERIN+probe Ql (Resp) Not detected Not Detected [facility] SARS-CoV-2 (COVID-19) RNA KATHERIN+probe Ql (Resp) Not detected Not Detected [facility] HEMOGLOBIN A1Con 03-11-2023 Glucose [Mass/Vol] 209 mg/dL Normal [facility] Comment on above: Performed By: #### H BA1E #### [address] [place] [address] HbA1c (Bld) [Mass fraction] 8.9 % Abnormal [facility] Comment on above: Result Comment: Diag nosis of Diabetes-Adults Non-Diabetic: < or = 5.6% Increased risk for developing diabetes: 5.7-6.4% Diagnostic of diabetes: > or = 6.5% . Monitoring of Diabetes Age (y) Therapeutic Goal (%) Adults: >18 <7.0 Pediatrics: 13-18 <7.5 7-12 <8.0 0- 6 7.5-8.5 [employer] [employer]. Diabetes Care 33(S1), Aug 2009. Performed By: #### H BA1E #### [facility] [address] [place] [address] Blood Pressure Cuff Sizeon 0 08-21-2022 Fall risk assessment a) No falls within the last year [facility] Work Phone: Tobacco use status [facility] a) Yes [facility] Work Phone: [phone] Blood Pressure Cuff Size Adult [facility] Work Phone: [phone] Blood Pressure Cuff Size Yes [facility] Work Phone: [phone] Office Visit (Internal Medic ine)on 08-21-2022 Follow-up visit Diagnoses/Problems Assessed Diabetes (250.00) (E11.9) Bipolar depression (296.50) (F31.9) Class 2 obesity with body mass index (BMI) of 36.0 to 36.9 in adult (278.00,V85.36) (E66.9,Z68.36) Depression (311) (F32.A) HTN (hypertension) (401.9) (I10) Hyponatremia (276.1) (E87.1) Seizures (780.39) (R56.9) Morbid obesity with BMI of 40.0-44.9, adult (278.01,V85.41) (E66.01,Z68.41) Eczema (692.9) (L30.9) Orders Diabetes Start: Mounjaro 2.5 MG/0.5ML Subcutaneous Solution Pen-injector; INJECT 1 PEN UNDER THE SKIN WEEKLY Rx By: James Sahu; Dispense: 0 Days ; #:4 X 0.5 ML Pen; Refill: 1;For: Diabetes; JAMIE = N; Verified Transmission to [address]; Last Updated By: Jose Alejandro Bondsy; 08/21/2022 3:35:32 PM Hemoglobin A1C; Status:Active; Requested for:19Nov2022; Perform:Lab Services - Lab To Draw (Blood Test); Due:[id number];Ordered; For:Diabetes; Ordered By:James Sahu; Eczema Start: Triamcinolone Acetonide 0.1 % External Cream; APPLY AND RUB IN A THIN FILM TO AFFECTED AREAS TWICE DAILY.(AM AND PM) Rx By: James Sahu; Dispense: 0 Days ; #:1 X 30 GM Tube; Refill: 0;For: Eczema; JAMIE = N; Verified Transmission to [facility] [facility]; Last Updated By: System, Bondsy; 08/21/2022 3:42:40 PM Provider Impressions .1. Uncontrolled DMII - a1c was 10.6 in 11/29 -> 9.9% - jardiance and farxgia too expensive - continue metformin 1000mg po bid - on pioglitazone - will see if mounjaro or other once weekly injection is covered 2 HTN - on coreg, losartan 3. Bipolar depression, anxiety - sees psych , will be changing to [place] - on Effexor and mirtazapine 4. VADIM on CPAP - is still using recalled [employer] machine, needs to have a new order sent to local [employer] company om anyone - reports last one sleep study was in [place] - looks like we faxed and order back in Sep but she states she never heard from them Chief Complaint 52 y/o female presents for 6 month f/u BS 206 prior to her visit She had a donut with her coffee this morning Pt states she cannot do insulin injections Rash on B/L hands since 11/2021 Dry blistering rash (dyshidrotic eczema)? History of Present IllnessPatient is here today for 6 mo follow up PTs a1c was 9.9% She is currently doing metformin 1000mg po bid, pioglitazone 30mg po daily Farxgia and jardiance was too expensive. On Pioglitazone but a1c is increased to 9.9% from 9.4% Will see if any once a week injectables are covered but not super expensive. she really has made changes to her diet and is cooking more and watching her carbs. Review of Systems Constitutional: no fever and no chills. ENT: no nosebleeds, no nasal discharge and no sore throat. Integumentary: a skin rash. Active Problems Problems Bipolar depression (296.50) (F31.9) Class 2 obesity with body mass index (BMI) of 36.0 to 36.9 in adult (278.00,V85.36) (E66.9,Z68.36) Depression (311) (F32.A) Diabetes (250.00) (E11.9) Goiter (240.9) (E04.9) History of recurrent ear infection (V12.49) (Z86.69) HTN (hypertension) (401.9) (I10) Hyponatremia (276.1) (E87.1) Insomnia (780.52) (G47.00) Irregular periods (626.4) (N92.6) Otitis externa (380.10) (H60.90) Seizures (780.39) (R56.9) Sinus infection (473.9) (J32.9) Past Medical History Problems History of cerebrovascular accident (V12.54) (Z86.73) History of diabetes mellitus (V12.29) (Z86.39) History of thyroid disorder (V12.29) (Z86.39) Surgical History Problems History of Back surgery Family History Mother Family history of DM II (diabetes mellitus, type II), controlled Other Family history of Alzheimer's disease (V17.2) (Z82.0) Family history of cerebrovascular accident (CVA) (V17.1) (Z82.3) Family history of dementia (V17.2) (Z81.8) Family history of diabetes mellitus (V18.0) (Z83.3) Family history of Psychiatric diagnosis Social History Problems Coffee Light cigarette smoker (1-9 cigarettes per day) (305.1) (F17.210) No illicit drug use Occasional alcohol use Allergies Medication azithromycin Recorded By: James Sahu; 09/10/2021 3:20:00 PM Sulfa Antibiotics Recorded By: James Sahu; 09/10/2021 3:20:00 PM Current Meds Medication NameInstruction Accu-Chek Guide In Vitro StripTEST TWICE DAILY. Accu-Chek Guide w/Device KitTEST SUGARS TWICE DAILY Aspirin Low Dose 81 MG Oral Tablet Delayed ReleaseTAKE 1 TABLET BY MOUTH EVERY DAY carBAMazepine 200 MG Oral TabletTAKE 2 TABLETS TWICE DAILY Carvedilol 6.25 MG Oral TabletTAKE 1 TABLET TWICE DAILY WITH MEALS. Centrum Silver 50+Women Oral TabletTAKE 1 TABLET DAILY. D3-50 1.25 MG (25825 UT) Oral CapsuleTAKE 1 CAPSULE ONCE DAILY FreeStyle Beena 3 SensorUse with cell phone gareth. Change sensor every 2 weeks. Ibuprofen 200 MG Oral TabletTAKE 3 TABLET Every 6 hours PRN Losartan Potassium 100 MG Oral TabletTake 1 tablet daily Magnesium Gluconate 500 MG Oral TabletTAKE 1 TABLET DAILY. Clau (more content not included)... Normal [employer] CBC AND DIFFERENTIALon 08-18 % AUTOMATED IMMATURE GRAN 0.5 % Normal 0.0 - 0.9 [facility] Comment on above: Result Comment: Opal ture Granulocyte Count (IG) includes promyelocytes, myelocytes and metamyelocytes but does not include bands. Percent differential counts (%) should be interpreted in the context of the absolute cell counts (cells/L). Performed By: #### C BCDF #### [address] [address] Basophils (Bld) [#/Vol] 0.04 10*3/uL Normal 0.00 - 0.10 [facility] Comment on above: Performed By: #### C BCDF #### [address] [address] Basophils/100 WBC (Bld) 0.5 % Normal 0.0 - 2.0 [facility] Comment on above: Performed By: #### C BCDF #### [address] [address] Eosinophils (Bld) [#/Vol] 0.14 10*3/uL Normal 0.00 - 0.70 [facility] Comment on above: Performed By: #### C BCDF #### [address] [address] Eosinophils/100 WBC (Bld) 1.8 % Normal 0.0 - 6.0 [facility] Comment on above: Performed By: #### C BCDF #### [address] [address] Erythrocyte distribution width (RBC) [Ratio] 12.6 % Normal 11.5 - 14.5 [facility] Comment on above: Performed By: #### C BCDF #### [address] [address] Hematocrit (Bld) [Volume fraction] 37.5 % Normal 36.0 - 46.0 [facility] Comment on above: Performed By: #### C BCDF #### [address] [address] Hemoglobin (Bld) [Mass/Vol] 13.0 g/dL Normal 12.0 - 16.0 [facility] Comment on above: Performed By: #### C BCDF #### [address] [address] Lymphocytes (Bld) [#/Vol] 2.92 10*3/uL Normal 1.20 - 4.80 [facility] Comment on above: Performed By: #### C BCDF #### [address] [address] Lymphocytes/100 WBC (Bld) 36.8 % Normal 13.0 - 44.0 [facility] Comment on above: Performed By: #### C BCDF #### [address] [address] MCHC (RBC) [Mass/Vol] 34.7 g/dL Normal 32.0 - 36.0 [facility] Comment on above: Performed By: #### C BCDF #### [address] [address] MCV (RBC) [Entitic vol] 90 fL Normal 80 - 100 [facility] Comment on above: Performed By: #### C BCDF #### [address] [address] Monocytes (Bld) [#/Vol] 0.54 10*3/uL Normal 0.10 - 1.00 [facility] Comment on above: Performed By: #### C BCDF #### [address] [address] Monocytes/100 WBC (Bld) 6.8 % Normal 2.0 - 10.0 [facility] Comment on above: Performed By: #### C BCDF #### [address] [address] Neutrophils (Bld) [#/Vol] 4.25 10*3/uL Normal 1.20 - 7.70 [facility] Comment on above: Result Comment: Perc ent differential counts (%) should be interpreted in the context of the absolute cell counts (cells/L). Performed By: #### C BCDF #### [address] [address] Neutrophils/100 WBC (Bld) 53.6 % Normal 40.0 - 80.0 [facility] Comment on above: Performed By: #### C BCDF #### [address] [address] Platelets (Bld) [#/Vol] 269 10*3/uL Normal 150 - 450 [facility] Comment on above: Performed By: #### C BCDF #### [address] [address] RBC 4.16 x10E12/L Normal 4.00 - 5.20 [facility] Comment on above: Performed By: #### C BCDF #### [address] [address] WBC (Bld) [#/Vol] 7.9 10*3/uL Normal 4.4 - 11.3 [facility] Comment on above: Performed By: #### C BCDF #### [address] [address] COMPREHENSIVE PANELon 2022 Albumin [Mass/Vol] 4.1 g/dL Normal 3.4 - 5.0 [facility] Comment on above: Performed By: #### C MP #### [address] [address] ALP [Catalytic activity/Vol] 68 U/L Normal 33 - 110 [facility] Comment on above: Performed By: #### C MP #### [address] [address] ALT [Catalytic activity/Vol] 42 U/L Normal 7 - 45 [facility] Comment on above: Result Comment: Sharmila ents treated with Sulfasalazine may generate falsely decreased results for ALT. Performed By: #### C MP #### [address] [address] Anion gap [Moles/Vol] 15 mmol/L Normal 10 - 20 [facility] Comment on above: Performed By: #### C MP #### [address] [address] AST [Catalytic activity/Vol] 36 U/L Normal 9 - 39 [facility] Comment on above: Performed By: #### C MP #### [address] [address] Bilirubin [Mass/Vol] 0.4 mg/dL Normal 0.0 - 1.2 [facility] Comment on above: Performed By: #### C MP #### [address] [address] Calcium [Mass/Vol] 9.3 mg/dL Normal 8.6 - 10.3 [facility] Comment on above: Performed By: #### C MP #### [address] [address] Chloride [Moles/Vol] 96 mmol/L Low 98 - 107 [facility] Comment on above: Performed By: #### C MP #### [address] [address] Creatinine [Mass/Vol] 0.50 mg/dL Normal 0.50 - 1.05 [facility] Comment on above: Performed By: #### C MP #### [address] [address] eGFR FEMALE >90 Normal >90 [facility] Comment on above: Result Comment: CALC ULATIONS OF ESTIMATED GFR ARE PERFORMED USING THE 2020 CKD-EPI STUDY REFIT EQUATION WITHOUT THE RACE VARIABLE FOR THE IDMS-TRACEABLE CREATININE METHODS. https://jasn.asnjournals.org/content//ASN.0160982 988 Performed By: #### C MP #### [address] [address] Glucose [Mass/Vol] 334 mg/dL High 74 - 99 [facility] Comment on above: Performed By: #### C MP #### [address] [address] HCO3 (Bld) [Moles/Vol] 24 mmol/L Normal 21 - 32 [facility] Comment on above: Performed By: #### C MP #### [address] [address] Potassium [Moles/Vol] 4.3 mmol/L Normal 3.5 - 5.3 [facility] Comment on above: Performed By: #### C MP #### [address] [address] Protein [Mass/Vol] 6.9 g/dL Normal 6.4 - 8.2 [facility] Comment on above: Performed By: #### C MP #### [address] [address] Sodium [Moles/Vol] 131 mmol/L Low 136 - 145 [facility] Comment on above: Performed By: #### C MP #### [address] [address] Urea nitrogen [Mass/Vol] 9 mg/dL Normal 6 - 23 [facility] Comment on above: Performed By: #### C MP #### [address] [address] Complete Blood Count + Diffe rentialon 08-18-2022 Basophils/100 WBC (Bld) 0.5 % 0.0 - 2.0 [facility] Work Phone: [phone] Erythrocyte distribution width (RBC) [Ratio] 12.6 % See Below [facility] Work Phone: [phone] Comment on above: Reference Range: 11. 5 - 14.5 Hematocrit (Bld) [Volume fraction] 37.5 % See Below [facility] Work Phone: [phone] Comment on above: Reference Range: 36. 0 - 46.0 Hemoglobin (Bld) [Mass/Vol] 13.0 g/dL See Below [facility] Work Phone: [phone] Comment on above: Reference Range: 12. 0 - 16.0 Lymphocytes/100 WBC (Bld) 36.8 % See Below [facility] Work Phone: [phone] Comment on above: Reference Range: 13. 0 - 44.0 MCHC (RBC) [Mass/Vol] 34.7 g/dL See Below [facility] Work Phone: [phone] Comment on above: Reference Range: 32. 0 - 36.0 MCV (RBC) [Entitic vol] 90 fL 80 - 100 [facility] Work Phone: [phone] Monocytes/100 WBC (Bld) 6.8 % 2.0 - 10.0 [facility] Work Phone: [phone] Neutrophils/100 WBC (Bld) 53.6 % See Below [facility] Work Phone: [phone] Comment on above: Reference Range: 40. 0 - 80.0 Platelets (Bld) [#/Vol] 269 10*3/uL 150 - 450 [facility] Work Phone: [phone] RBC (Bld) [#/Vol] 4.16 {x10E12/L} See Below [facility] Work Phone: [phone] Comment on above: Reference Range: 4.0 0 - 5.20 WBC (Bld) [#/Vol] 7.9 10*3/uL 4.4 - 11.3 [facility] Work Phone: [phone] Complete Blood Count + Differential 0.04 {x10E9/L} See Below [facility] Work Phone: [phone] Comment on above: Reference Range: 0.0 0 - 0.10 Complete Blood Count + Differential 0.14 {x10E9/L} See Below [facility] Work Phone: [phone] Comment on above: Reference Range: 0.0 0 - 0.70 Complete Blood Count + Differential 0.54 {x10E9/L} See Below [facility] Work Phone: Comment on above: Reference Range: 0.1 0 - 1.00 Complete Blood Count + Differential 2.92 {x10E9/L} See Below [facility] [place] Work Phone: Comment on above: Reference Range: 1.2 0 - 4.80 Complete Blood Count + Differential 4.25 {x10E9/L} See Below [facility] Work Phone: Comment on above: Reference Range: 1.2 0 - 7.70 Percent differential counts (%) should be interpreted in the context of the absolute cell counts (cells/L). Complete Blood Count + Differential 1.8 % 0.0 - 6.0 [facility] Work [facility]: Complete Blood Count + Differential 0.5 % 0.0 - 0.9 [facility] Work Phone: Comment on above: Immature Granulocyte Count (IG) includes promyelocytes, myelocytes and metamyelocytes but does not include bands. Percent differential counts (%) should be interpreted in the context of the absolute cell counts (cells/L). FSH + LHon 08-18-2022 FOLLICLE STIM. HORMONE 24.7 IU/L Normal [facility] Comment on above: Result Comment: REF VALUES FOLLICULAR 2-12 MID-CYCLE 12-25 LUTEAL PHASE 2-12 MENOPAUSE 30-150 PREPUBERTY 50% ADULT ADULT MALE 2-10 INFANTS 0-1 Performed By: #### F [facility] #### [facility] [address] [place] [address] LUTEINIZING HORMONE 17.6 IU/L Normal [facility] Comment on above: Result Comment: REF VALUES FOLLICULAR PHASE 1.9-12.5 MID-CYCLE 8.7-76.3 LUTEAL PHASE 0.5-16.9 POST MENOPAUSE 5.0-55.2 CHILDREN 0- 6.0 ADULT MALE 18-70 1.5- 9.3 ADULT MALE >70 3.1-34.6 Performed By: #### F SH #### [facility] [address] [place] [address] HEMOGLOBIN A1Con 08-18-2022 Glucose [Mass/Vol] 237 mg/dL Normal [facility] Comment on above: Performed By: #### H BA1E #### [address] [address] HbA1c (Bld) [Mass fraction] 9.9 % Abnormal [facility] Comment on above: Result Comment: Diag nosis of Diabetes-Adults Non-Diabetic: < or = 5.6% Increased risk for developing diabetes: 5.7-6.4% Diagnostic of diabetes: > or = 6.5% . Monitoring of Diabetes Age (y) Therapeutic Goal (%) Adults: >18 <7.0 Pediatrics: 13-18 <7.5 7-12 <8.0 0- 6 7.5-8.5 [employer]. Diabetes Care 33(S1), Aug 2009. Performed By: #### H BA1E #### [address] [address] Hemoglobin A1Con 08-18-2022 Glucose [Mass/Vol] 237 mg/dL [facility] Work Phone: HbA1c (Bld) [Mass fraction] 9.9 % Abnormal [facility] Work Phone: Comment on above: Diagnosis of Diabete s-Adults Non-Diabetic: < or = 5.6% Increased risk for developing diabetes: 5.7-6.4% Diagnostic of diabetes: > or = 6.5%. Monitoring of Diabetes Age (y) Therapeutic Goal (%) Adults: >18 <7.0 Pediatrics: 13-18 <7.5 7-12 <8.0 0- 6 7.5-8.5 [employer]. Diabetes Care 33(S1), Aug 2009. LIPID PANEL (CORONARY RISK 2 )on 08-18-2022 Cholesterol [Mass/Vol] 284 mg/dL High 0 - 199 [facility] Comment on above: Result Comment: . AGE DESIRABLE BORDERLINE HIGH HIGH 0-19 Y 0 - 169 170 - 199 >/= 200 20-24 Y 0 - 189 190 - 224 >/= 225 >24 Y 0 - 199 200 - 239 >/= 240 All ranges are based on fasting samples. Specific therapeutic targets will vary based on patient-specific cardiac risk. . Pediatric guidelines reference:Pediatrics 2011, 128(S5). Adult guidelines reference: NCEP ATPIII Guidelines, JS 2001, 258:2486-97 . Venipuncture immediately after or during the administration of Metamizole may lead to falsely low results. Testing should be performed immediately prior to Metamizole dosing. Performed By: #### B MP #### [address] [address] Cholesterol in HDL [Mass/Vol] 51.0 mg/dL Normal [facility] Comment on above: Result Comment: . AGE VERY LOW LOW NORMAL HIGH 0-19 Y < 35 < 40 40-45 ---- 20-24 Y ---- < 40 >45 ---- >24 Y ---- < 40 40-60 >60 . Performed By: #### B MP #### [address] [address] Cholesterol.total/Ch olesterol in HDL [Mass ratio] 5.6 {ratio} Abnormal [facility] Comment on above: Result Comment: REF VALUES DESIRABLE < 3.4 HIGH RISK > 5.0 Performed By: #### B MP #### [address] [address] LDL - Normal 0 - 99 [facility] Comment on above: Result Comment: . NEAR BORD AGE DESIRABLE OPTIMAL HIGH HIGH VERY HIGH 0-19 Y 0 - 109 --- 110-129 >/= 130 ---- 20-24 Y 0 - 119 --- 120-159 >/= 160 ---- >24 Y 0 - 99 100-129 130-159 160-189 >/=190 . THE CALCULATION OF LDL AND VLDL ARE INACCURATE WHEN TRIGLYCERIDES ARE GREATER THAN 400 MG/DL OR WHEN THE PATIENT IS NON-FASTING. IF LDL MEASUREMENT IS NECESSARY CONTACT THE TESTING LABORATORY FOR AN ALTERNATIVE LDL ASSAY. Performed By: #### B MP #### [address] [address] Triglyceride [Mass/Vol] 658 mg/dL High 0 - 149 [facility] Comment on above: Result Comment: . AGE DESIRABLE BORDERLINE HIGH HIGH VERY HIGH 0 D-90 D 19 - 174 ---- ---- ---- 91 D- 9 Y 0 - 74 75 - 99 >/= 100 ---- 10-19 Y 0 - 89 90 - 129 >/= 130 ---- 20-24 Y 0 - 114 115 - 149 >/= 150 ---- >24 Y 0 - 149 150 - 199 200- 499 >/= 500 . Venipuncture immediately after or during the administration of Metamizole may lead to falsely low results. Testing should be performed immediately prior to Metamizole dosing. Performed By: #### B MP #### [address] [address] VLDL SEE COMMENT Normal 0 - 40 [facility] Comment on above: Result Comment: Unab le to calculate VLDL. Performed By: #### B MP #### [address] [address] Laboratory - Chemistry and C hemistry - challengeon 08-18-2022 Albumin BCP dye [Mass/Vol] 4.1 g/dL 3.4 - 5.0 [facility] Work Phone: [phone] ALP [Catalytic activity/Vol] 68 U/L 33 - 110 [facility] Work Phone: [phone] ALT With P-5'-P [Catalytic activity/Vol] 42 U/L 7 - 45 [facility] Work Phone: [phone] Comment on above: Patients treated wit h Sulfasalazine may generate falsely decreased results for ALT. Anion gap [Moles/Vol] 15 mmol/L 10 - 20 [facility] Work Phone: [phone] AST With P-5'-P [Catalytic activity/Vol] 36 U/L 9 - 39 [facility] Work Phone: [phone] Bilirubin [Mass/Vol] 0.4 mg/dL 0.0 - 1.2 -[facility] Work Phone: [phone] Calcium [Mass/Vol] 9.3 mg/dL 8.6 - 10.3 [facility] Work Phone: [phone] Chloride [Moles/Vol] 96 mmol/L below low threshold 98 - 107 [facility] Work Phone: [phone] CO2 [Moles/Vol] 24 mmol/L 21 - 32 [facility] Work Phone: [phone] Creatinine [Mass/Vol] 0.50 mg/dL See Below [facility] Work Phone: [phone] Comment on above: Reference Range: 0.5 0 - 1.05 Follitropin Qn 24.7 {IU/L} [facility] Work Phone: [phone] Comment on above: REF VALUESFOLLICULAR 6-45HXA-CUWLO 12-25LUTEAL PHASE 2-12MENOPAUSE 30-150PREPUBERTY 50% ADULTADULT MALE 2-10INFANTS 0-1 Glucose [Mass/Vol] 334 mg/dL above high threshold 74 - 99 [facility] Work Phone: [phone] Lutropin Qn 17.6 {IU/L} [facility] Work Phone: [phone] Comment on above: REF VALUESFOLLICULAR PHASE 1.9-12.5MID-CYCLE 8.7-76.3LUTEAL PHASE 0.5-16.9POST MENOPAUSE 5.0-55.2CHILDREN 0- 6.0ADULT MALE 18-70 1.5- 9.3ADULT MALE >70 3.1-34.6 Potassium [Moles/Vol] 4.3 mmol/L 3.5 - 5.3 [facility] Work Phone: [phone] Protein [Mass/Vol] 6.9 g/dL 6.4 - 8.2 [facility] Work Phone: [phone] Sodium [Moles/Vol] 131 mmol/L below low threshold 136 - 145 [facility] Work Phone: [phone] Urea nitrogen [Mass/Vol] 9 mg/dL 6 - [facility] Work Phone: [phone] Lipid Panelon 08-18-2022 Cholesterol [Mass/Vol] 284 mg/dL above high threshold 0 - 199 [facility] Work Phone: [phone] Comment on above: . AGE DESIRABLE BORD CHIVO HIGH HIGH 0-19 Y 0 - 169 170 - 199 >/= 200 20-24 Y 0 - 189 190 - 224 >/= 225 >24 Y 0 - 199 200 - 239 >/= 240 All ranges are based on fasting samples. Specific therapeutic targets will vary based on patient-specific cardiac risk.. Pediatric guidelines reference:Pediatrics 2011, 128(S5). Adult guidelines reference: NCEP ATPIII Guidelines, JS 2001, 258:2486-97. Venipuncture immediately after or during the administration of Metamizole may lead to falsely low results. Testing should be performed immediately prior to Metamizole dosing. Cholesterol in HDL [Mass/Vol] 51.0 mg/dL [facility] Work Phone: [phone] Comment on above: . AGE VERY LOW LOW N ORMAL HIGH 0-19 Y < 35 < 40 40-45 ---- 20- 24 Y ---- < 40 >45 ---- >24 Y ---- < 40 40-60 >60. Cholesterol in LDL [Mass/Vol] - 0 - 99 [facility] Work Phone: [phone] Comment on above: . NEAR BORD AGE DAMON RABLE OPTIMAL HIGH HIGH VERY HIGH 0-19 Y 0 - 109 --- 110-129 >/= 130 ---- 20-24 Y 0 - 119 --- 120-159 >/= 160 ---- >24 Y 0 - 99 100-129 130-159 160-189 >/=190.THE CALCULATION OF LDL AND VLDL ARE INACCURATEWHEN TRIGLYCERIDES ARE GREATER THAN 400 MG/DLOR WHEN THE PATIENT IS NON-FASTING. IF LDLMEASUREMENT IS NECESSARY CONTACT THE TESTINGLABORATORY FOR AN ALTERNATIVE LDL ASSAY. Cholesterol.total/Ch olesterol in HDL [Mass ratio] 5.6 {ratio} Abnormal [facility]: Comment on above: REF VALUESDESIRABLE < 3.4HIGH RISK > 5.0 Triglyceride [Mass/Vol] 658 mg/dL above high threshold 0 - [facility] Work [facility]: Comment on above: . AGE DESIRABLE BORD CHIVO HIGH HIGH VERY HIGH 0 D-90 D 19 - 174 ---- ---- ----91 D- 9 Y 0 - 74 75 - 99 >/= 100 ---- 10-19 Y 0 - 89 90 - 129 >/= 130 ---- 20-24 Y 0 - 114 115 - 149 >/= 150 ---- >24 Y 0 - 149 150 - 199 200- 499 >/= 500. Venipuncture immediately after or during the administration of Metamizole may lead to falsely low results. Testing should be performed immediately prior to Metamizole dosing. Lipid Panel SEE COMMENT 0 - [facility] Work [facility]: Comment on above: Unable to calculate VLDL. No Panel Informationon 08-18 >90 >90 [facility]: Comment on above: CALCULATIONS OF NICK MATED GFR ARE PERFORMED USING THE 2020 CKD-EPI STUDY REFIT EQUATION WITHOUT THE RACE VARIABLE FOR THE IDMS-TRACEABLE CREATININE METHODS.https://jasn.asnjournals.org/content/early/ASN .8322324159 TSHon 08-18-2022 TSH Qn 1.10 m[IU]/L Normal 0.44 - 3.98 [facility] Comment on above: Result Comment: TSH testing is performed using different testing methodology at [facility] than at other [facility]. Direct result comparisons should only be made within the same method. Performed By: #### T SH2 #### [facility] [address] [place] [address] TSH - Thyroid Stimulating Ho isra, Serumon 08-18-2022 TSH Qn 1.10 m[IU]/L See Below -[facility] Work Phone: Comment on above: Reference Range: 0.4 4 - 3.98 TSH testing is performed using different testing methodology at [facility] than at other [facility]. Direct result comparisons should only be made within the same method. Established Visit (Nephrolog y)on 07-14-2022 Established Visit (Nephrology) Diagnoses/Problems Hyponatremia (276.1) (E87.1) HTN (hypertension) (401.9) (I10) Diabetes (250.00) (E11.9) Orders HTN (hypertension) Renew: Carvedilol 6.25 MG Oral Tablet; TAKE 1 TABLET TWICE DAILY WITH MEALS Hyponatremia Basic Metabolic Panel; Status:Active; Requested for:[id number]; Patient Discussion/Summary Issues: 1. Hyponatremia-sodium is within normal limits, with corrected sodium secondary to her hyperglycemia her sodium level is 138 2. Hypertension-blood pressure is improving however is still elevated, at this time she is on losartan 100 mg daily nifedipine 90 mg daily, at this time we will increase her carvedilol to 6.25 mg twice a day, she was only taking 3.125 mg daily, we are trying to use medications that she has however if she does not get improvement with her blood pressure with the increase of carvedilol we can start doxazosin instead, she is also slightly tachycardic so the beta-irina will help with this also. She will call me in 2 weeks with her blood pressures At that time I will possibly increase her carvedilol if she continues to be elevated She will return to the office in 1 month and have lab work prior to her appointment. 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 Hypertension-uncontrolled Diabetes mellitus type 2 Bipolar disorder Chief Complaint 1 MO FUV- HTN AND HYPONATREMIA History of Present IllnessPatient being seen in follow-up for hypertension and hyponatremia Labs reviewed Glucose 380 Sodium 131, potassium 4.1, chloride 95, bicarb 23 Renal function with BUN of 12 and creatinine of 0.6 She states that she is doing much better She is not as drowsy She is watching her blood pressure at home the beginning of the month that she was routinely in the 170s and 180s, at this time she is running in the 140s to the 160s systolically Review of Systems Constitutional: no fever, no chills, no recent weight gain and no recent weight loss. Eyes: no blurred vision and no diplopia. ENT: no hearing loss, no earache, no sore throat, no swollen glands in the neck and no nasal discharge. Cardiovascular: no chest pain, no palpitations and no lower extremity edema. Respiratory: no shortness of breath, no chronic cough and no shortness of breath during exertion. Gastrointestinal: no abdominal pain, no constipation, no heartburn, no vomiting, no bloody stools and no change in bowel movements. Genitourinary: no dysuria and no hematuria. Musculoskeletal: no arthralgias and no myalgias. Skin: no rashes and no skin lesions. Neurological: no headaches and no dizziness. Psychiatric: no confusion, no depression and no anxiety. Endocrine: no heat intolerance, no cold intolerance, appetite not increased, no thyroid disorder, no increased urinary frequency and no dry skin. Hematologic/Lymphatic: does not bleed easily and does not bruise easily. All other systems have been reviewed and are negative for complaint. Active Problems Bipolar depression (296.50) (F31.9) Class 2 obesity with body mass index (BMI) of 36.0 to 36.9 in adult (278.00,V85.36) (E66.9,Z68.36) Depression (311) (F32.A) Diabetes (250.00) (E11.9) Goiter (240.9) (E04.9) History of recurrent ear infection (V12.49) (Z86.69) HTN (hypertension) (401.9) (I10) Hyponatremia (276.1) (E87.1) Insomnia (780.52) (G47.00) Otitis externa (380.10) (H60.90) Seizures (780.39) (R56.9) Sinus infection (473.9) (J32.9) Past Medical History History of cerebrovascular accident (V12.54) (Z86.73) History of diabetes mellitus (V12.29) (Z86.39) History of thyroid disorder (V12.29) (Z86.39) Surgical History History of Back surgery Family History Family history of DM II (diabetes mellitus, type II), controlled Family history of Alzheimer's disease (V17.2) (Z82.0) Family history of cerebrovascular accident (CVA) (V17.1) (Z82.3) Family history of dementia (V17.2) (Z81.8) Family history of diabetes mellitus (V18.0) (Z83.3) Family history of Psychiatric diagnosis Social History Coffee Light cigarette smoker (1-9 cigarettes per day) (305.1) (F17.210) No illicit drug use Occasional alcohol use Allergies azithromycin Recorded By: James Sahu; 09/10/2021 3:20:00 PM Sulfa Antibiotics Recorded By: James Sahu; 09/10/2021 3:20:00 PM Current Meds Medication NameInstruction Accu-Chek Guide In Vitro StripTEST TWICE DAILY. Accu-Chek Guide w/Device KitTEST SUGARS TWICE DAILY Aspirin Low Dose 81 MG Oral Tablet Delayed ReleaseTAKE 1 TABLET BY MOUTH EVERY DAY carBAMazepine 200 MG Oral TabletTAKE 2 TABLETS TWICE DAILY Carvedilol 3.125 MG Oral TabletTAKE 1 TABLET BY MOUTH EVERY DAY Centrum Silver 50+Women Oral TabletTAKE 1 TABLET DAILY. D3-50 1.25 MG (55836 UT) Oral CapsuleTAKE 1 CAPSULE ONCE DAILY FreeStyle Beena 3 SensorUse with cell phone gareth. Change sensor every 2 weeks. Ibuprofen 200 MG Oral TabletTAKE 3 TABLET Every 6 hours PRN Losartan Potassium 1 (more content not included)... Normal PlanG BASIC METABOLIC PANELon 12-0 Anion gap [Moles/Vol] 17 mmol/L Normal 10 - 20 [facility] Comment on above: Performed By: #### B MP #### [address] [address] Calcium [Mass/Vol] 9.3 mg/dL Normal 8.6 - 10.3 [facility] Comment on above: Performed By: #### B MP #### [address] [address] Chloride [Moles/Vol] 95 mmol/L Low 98 - 107 [facility] Comment on above: Performed By: #### B MP #### [address] [address] Creatinine [Mass/Vol] 0.60 mg/dL Normal 0.50 - 1.05 [facility] Comment on above: Performed By: #### B MP #### [address] [address] eGFR FEMALE >90 Normal >90 [facility] Comment on above: Result Comment: CALC ULATIONS OF ESTIMATED GFR ARE PERFORMED USING THE 2020 CKD-EPI STUDY REFIT EQUATION WITHOUT THE RACE VARIABLE FOR THE IDMS-TRACEABLE CREATININE METHODS. https://jasn.asnjournals.org/content/early//ASN.3022996 988 Performed By: #### B MP #### [address] [address] Glucose [Mass/Vol] 380 mg/dL High 74 - 99 [facility] Comment on above: Performed By: #### B MP #### [address] [address] HCO3 (Bld) [Moles/Vol] 23 mmol/L Normal 21 - 32 [facility] Comment on above: Performed By: #### B MP #### [address] [address] Potassium [Moles/Vol] 4.1 mmol/L Normal 3.5 - 5.3 [facility] Comment on above: Result Comment: MILD HEMOLYSIS DETECTED. The result may be falsely elevated due to hemolysis or other interferents. Clinical correlation is recommended. Repeat testing may be considered. Performed By: #### B MP #### [address] [address] Sodium [Moles/Vol] 131 mmol/L Low 136 - 145 [facility] Comment on above: Performed By: #### B MP #### [address] [address] Urea nitrogen [Mass/Vol] 12 mg/dL Normal 6 - 23 [facility] Comment on above: Performed By: #### B #### [facility] [address] [place] [address] Laboratory - Chemistry and C hemistry - challengeon 07-11-2022 Anion gap [Moles/Vol] 17 mmol/L 10 - 20 MP-Nephrolog [facility] 3 DO Work Phone: [phone] Calcium [Mass/Vol] 9.3 mg/dL 8.6 - 10.3 MP-Nep hrolog [facility] 3 DO Work Phone: [phone] Chloride [Moles/Vol] 95 mmol/L below low threshold 98 - 107 -Nephrolog [place] [address] DO Work Phone: [phone] CO2 [Moles/Vol] 23 mmol/L 21 - 32 -Nephro log [place] [address] DO Work Phone: [phone] Creatinine [Mass/Vol] 0.60 mg/dL See Below [facility] [address] [place] Work Phone: [phone] Comment on above: Reference Range: 0.5 0 - 1.05 Glucose [Mass/Vol] 380 mg/dL above high threshold 74 - 99 [facility] [place] [address] DO Work Phone: [phone] Potassium [Moles/Vol] 4.1 mmol/L 3.5 - 5.3 [facility] [place] [address] DO Work Phone: [phone] Comment on above: MILD HEMOLYSIS DETEC BERTA. The result may be falsely elevated due tohemolysis or other interferents. Clinical correlation is recommended.Repeat testing may be considered. Sodium [Moles/Vol] 131 mmol/L below low threshold 136 - 145 -Nephrolog [place] [address] DO Work Phone: [phone] Urea nitrogen [Mass/Vol] 12 mg/dL 6 - 23 -Nephrolog [place] [address] DO Work Phone: No Panel Informationon 12-02 -2022 >90 >90 MP-Nephrolog y-[facility] 3 DO Work Phone: Comment on above: CALCULATIONS OF NICK MATED GFR ARE PERFORMED USING THE 2020 CKD-EPI STUDY REFIT EQUATION WITHOUT THE RACE VARIABLE FOR THE IDMS-TRACEABLE CREATININE METHODS.https://jasn.asnjournals.org/content/early/ASN .5872670303 BASIC METABOLIC PANELon 11- Anion gap [Moles/Vol] 12 mmol/L Normal 10 - 20 [facility] Comment on above: Performed By: #### B MP #### [address] [address] Sodium [Moles/Vol] 129 mmol/L Low 136 - 145 [facility] Comment on above: Result Comment: Conf irmed by repeat analysis Performed By: #### B MP #### [address] [address] Calcium [Mass/Vol] 9.2 mg/dL Normal 8.6 - 10.3 [facility] Comment on above: Performed By: #### B MP #### [address] [address] Chloride [Moles/Vol] 94 mmol/L Low 98 - 107 [facility] Comment on above: Performed By: #### B MP #### [address] [address] Creatinine [Mass/Vol] 0.53 mg/dL Normal 0.50 - 1.05 [facility] Comment on above: Performed By: #### B MP #### [address] [address] eGFR FEMALE >90 Normal >90 [facility] Comment on above: Result Comment: CALC ULATIONS OF ESTIMATED GFR ARE PERFORMED USING THE 2020 CKD-EPI STUDY REFIT EQUATION WITHOUT THE RACE VARIABLE FOR THE IDMS-TRACEABLE CREATININE METHODS. https://jasn.asnjournals.org/content/early/ASN.1275500 988 Performed By: #### B MP #### [place] [address] [place] [address] Glucose [Mass/Vol] 218 mg/dL High 74 - 99 [facility] Comment on above: Performed By: #### B MP #### [address] [address] HCO3 (Bld) [Moles/Vol] 27 mmol/L Normal 21 - 32 [facility] Comment on above: Performed By: #### B MP #### [address] [address] Potassium [Moles/Vol] 4.2 mmol/L Normal 3.5 - 5.3 [facility] Comment on above: Performed By: #### B MP #### [address] [address] Urea nitrogen [Mass/Vol] 12 mg/dL Normal 6 - 23 [facility] Comment on above: Performed By: #### B MP #### [address] [address] Laboratory - Chemistry and C hemistry - challengeon 06-24-2022 Anion gap [Moles/Vol] 12 mmol/L 10 - 20 -Nephrolog [facility] 3 DO Work Phone: Calcium [Mass/Vol] 9.2 mg/dL 8.6 - 10.3 -Nep hrolog [facility] 3 DO Work Phone: [phone] Chloride [Moles/Vol] 94 mmol/L below low threshold 98 - 107 -Nephrolog [facility] 3 DO Work Phone: [phone] CO2 [Moles/Vol] 27 mmol/L 21 - 32 -Nephro log [facility] 3 DO Work Phone: [phone] Creatinine [Mass/Vol] 0.53 mg/dL See Below -Nephrolog [facility] 3 DO Work Phone: Comment on above: Reference Range: 0.5 0 - 1.05 Glucose [Mass/Vol] 218 mg/dL above high threshold 74 - 99 -Nephrolog [facility] 3 DO Work Phone: [phone] Potassium [Moles/Vol] 4.2 mmol/L 3.5 - 5.3 -Nephrolog [place] [address] DO Work Phone: [phone] Sodium [Moles/Vol] 129 mmol/L below low threshold 136 - 145 -Nephrolog [place] [address] DO Work Phone: [phone] Comment on above: Confirmed by repeat analysis Urea nitrogen [Mass/Vol] 12 mg/dL - -Nephrolog [place] [address] DO Work Phone: No Panel Informationon 06-24 >90 >90 [facility] [place] [address] DO Work Phone: Comment on above: CALCULATIONS OF NICK MATED GFR ARE PERFORMED USING THE 2020 CKD-EPI STUDY REFIT EQUATION WITHOUT THE RACE VARIABLE FOR THE IDMS-TRACEABLE CREATININE METHODS.https://jasn.asnjournals.org/content/early/ASN .5626143297 BASIC METABOLIC PANELon ANION GAP Canceled Normal [facility] Comment on above: Order Comment: TEST BASIC METABOLIC PANEL WAS CANCELLED, 06/12/2022 16:16 GROSSLY HEMOLYZED. Performed By: #### B MP #### [place] [address] BICARBONATE Canceled Normal [facility] Comment on above: Order Comment: TEST BASIC METABOLIC PANEL WAS CANCELLED, 06/12/2022 16:16 GROSSLY HEMOLYZED. Performed By: #### B MP #### [place] [id number] CALCIUM Canceled Normal [facility] Comment on above: Order Comment: TEST BASIC METABOLIC PANEL WAS CANCELLED, 06/12/2022 16:16 GROSSLY HEMOLYZED. Performed By: #### B MP #### [place] [id number] CHLORIDE Canceled Normal [facility] Comment on above: Order Comment: TEST BASIC METABOLIC PANEL WAS CANCELLED, 06/12/2022 16:16 GROSSLY HEMOLYZED. Performed By: #### B MP #### [address] [address] CREATININE Canceled Normal [facility] Comment on above: Order Comment: TEST BASIC METABOLIC PANEL WAS CANCELLED, 06/12/2022 16:16 GROSSLY HEMOLYZED. Performed By: #### B MP #### [address] [address] eGFR FEMALE Canceled Normal [facility] Comment on above: Order Comment: TEST BASIC METABOLIC PANEL WAS CANCELLED, 06/12/2022 16:16 GROSSLY HEMOLYZED. Result Comment: CALC ULATIONS OF ESTIMATED GFR ARE PERFORMED USING THE 2020 CKD-EPI STUDY REFIT EQUATION WITHOUT THE RACE VARIABLE FOR THE IDMS-TRACEABLE CREATININE METHODS. https://jasn.asnjournals.org/content/early/ASN.0713722 988 Performed By: #### B MP #### [address] [address] eGFR MALE Canceled Normal [facility] Comment on above: Order Comment: TEST BASIC METABOLIC PANEL WAS CANCELLED, 06/12/2022 16:16 GROSSLY HEMOLYZED. Result Comment: CALC ULATIONS OF ESTIMATED GFR ARE PERFORMED USING THE 2020 CKD-EPI STUDY REFIT EQUATION WITHOUT THE RACE VARIABLE FOR THE IDMS-TRACEABLE CREATININE METHODS. https://jasn.asnjournals.org/content/early/ASN.2503075 988 Performed By: #### B MP #### [address] [address] GLUCOSE Canceled Normal [facility] Comment on above: Order Comment: TEST BASIC METABOLIC PANEL WAS CANCELLED, 06/12/2022 16:16 GROSSLY HEMOLYZED. Performed By: #### B MP #### [address] [address] POTASSIUM Canceled Normal [facility] Comment on above: Order Comment: TEST BASIC METABOLIC PANEL WAS CANCELLED, 06/12/2022 16:16 GROSSLY HEMOLYZED. Performed By: #### B MP #### [address] [address] SODIUM Canceled Normal [facility] Comment on above: Order Comment: TEST BASIC METABOLIC PANEL WAS CANCELLED, 06/12/2022 16:16 GROSSLY HEMOLYZED. Performed By: #### B MP #### [address] [address] UREA NITROGEN Canceled Normal [facility] Comment on above: Order Comment: TEST BASIC METABOLIC PANEL WAS CANCELLED, 06/12/2022 16:16 GROSSLY HEMOLYZED. Performed By: #### B MP #### [address] [address] Established Visit (Nephrolog y)on 06-12-2022 Established Visit (Nephrology) Diagnoses/Problems HTN (hypertension) (401.9) (I10) Hyponatremia (276.1) (E87.1) Patient Discussion/Summary Issues: 1. HTN- restart Nifedipine at 90 mg daily, Call with blood pressures next . 2. Hyponatremia. No change made at this time as labs results are pending. Continue fluid restriction will call with lab results Follow-up in 1 month as long as labs and blood pressure is stable. 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 Brought blood pressure readings into the office for review. Blood pressures last 2 days were 152/94 and 161/83, Ran out of medication on Thursday. Reports experiencing headaches and dizziness when off the medication. Denies any visual disturbances when wearing her glasses. Complains of excessive sweating which is not acute. Questions if this is potentially related to menopause. Labs drawn within the past hour and have not been resulted yet. Review of Systems Constitutional: no fever, no chills, no recent weight gain and no recent weight loss . as noted in HPI. Eyes: no blurred vision and no diplopia. ENT: no hearing loss, no earache, no sore throat, no swollen glands in the neck and no nasal discharge. Cardiovascular: no chest pain, no palpitations and no lower extremity edema. Respiratory: no shortness of breath, no chronic cough and no shortness of breath during exertion. Gastrointestinal: no abdominal pain, no constipation, no heartburn, no vomiting, no bloody stools and no change in bowel movements. Genitourinary: no dysuria and no hematuria. Musculoskeletal: no arthralgias and no myalgias. Skin: no rashes and no skin lesions. Neurological: headaches and dizziness . as noted in HPI. Psychiatric: no confusion, no depression and no anxiety. Endocrine: no heat intolerance, no cold intolerance, appetite not increased, no thyroid disorder, no increased urinary frequency and no dry skin. Hematologic/Lymphatic: does not bleed easily and does not bruise easily. All other systems have been reviewed and are negative for complaint. Active Problems Bipolar depression (296.50) (F31.9) Class 2 obesity with body mass index (BMI) of 36.0 to 36.9 in adult (278.00,V85.36) (E66.9,Z68.36) Depression (311) (F32.A) Diabetes (250.00) (E11.9) Goiter (240.9) (E04.9) History of recurrent ear infection (V12.49) (Z86.69) HTN (hypertension) (401.9) (I10) Hyponatremia (276.1) (E87.1) Insomnia (780.52) (G47.00) Otitis externa (380.10) (H60.90) Seizures (780.39) (R56.9) Sinus infection (473.9) (J32.9) Past Medical History History of cerebrovascular accident (V12.54) (Z86.73) History of diabetes mellitus (V12.29) (Z86.39) History of thyroid disorder (V12.29) (Z86.39) Surgical History History of Back surgery Family History Family history of DM II (diabetes mellitus, type II), controlled Family history of Alzheimer's disease (V17.2) (Z82.0) Family history of cerebrovascular accident (CVA) (V17.1) (Z82.3) Family history of dementia (V17.2) (Z81.8) Family history of diabetes mellitus (V18.0) (Z83.3) Family history of Psychiatric diagnosis Social History Coffee Light cigarette smoker (1-9 cigarettes per day) (305.1) (F17.210) No illicit drug use Occasional alcohol use Allergies azithromycin Recorded By: James Sahu; 09/10/2021 3:20:00 PM Sulfa Antibiotics Recorded By: James Sahu; 09/10/2021 3:20:00 PM Current Meds Medication NameInstruction Accu-Chek Guide In Vitro StripTEST TWICE DAILY. Accu-Chek Guide w/Device KitTEST SUGARS TWICE DAILY Aspirin Low Dose 81 MG Oral Tablet Delayed ReleaseTAKE 1 TABLET BY MOUTH EVERY DAY carBAMazepine 200 MG Oral TabletTAKE 2 TABLETS TWICE DAILY Carvedilol 3.125 MG Oral TabletTAKE 1 TABLET BY MOUTH EVERY DAY Centrum Silver 50+Women Oral TabletTAKE 1 TABLET DAILY. D3-50 1.25 MG (75457 UT) Oral CapsuleTAKE 1 CAPSULE ONCE DAILY [employer] 3 SensorUse with cell phone gareth. Change sensor every 2 weeks. Ibuprofen 200 MG Oral TabletTAKE 3 TABLET Every 6 hours PRN Losartan Potassium 100 MG Oral TabletTake 1 tablet daily Magnesium Gluconate 500 MG Oral TabletTAKE 1 TABLET DAILY. Melatonin 3 MG Oral TabletTAKE 1 TABLET Bedtime PRN sleep At Bedtime Take 1 cap 1 hour before bedtime for sleep. metFORMIN HCl ER (OSM) 500 MG Oral Tablet Extended Release 24 HourTake 2 tablets twice daily. Mirtazapine 15 MG Oral TabletTAKE 1 TABLET AT BEDTIME. NIFEdipine ER 30 MG Oral Tablet Extended Release 24 HourTAKE 2 TABLET Daily NIFEdipine ER 90 MG Oral Tablet Extended Release 24 HourTAKE 1 TABLET DAILY. Pioglitazone HCl - 30 MG Oral TabletTAKE 1 TABLET ONCE DAILY. Turmeric 500 MG Oral TabletTAKE 2 TABLET Daily Venlafaxine HCl - 75 MG Oral TabletTAKE 1 TABLET DAILY W (more content not included)... Normal PlanG Laboratory - Chemistry and C hemistry - challengeon 06-12-2022 Calcium [Mass/Vol] Canceled [facility] 3 DO Work Phone: Chloride [Moles/Vol] Canceled MP-N ephrolog [facility] 3 DO Work Phone: CO2 [Moles/Vol] Canceled MP-Nephro log y-[facility] 3 DO Work Phone: Creatinine [Mass/Vol] Canceled MP-Nephrolog -[facility] 3 DO Work Phone: Glucose [Mass/Vol] Canceled MP-Nep hrolog [facility] 3 DO Work Phone: Potassium [Moles/Vol] Canceled MP-Nephrolog [place] [address] DO Work Phone: Sodium [Moles/Vol] Canceled MP-Nep hrolog [place] [address] DO Work Phone: Urea nitrogen [Mass/Vol] Canceled -Nephrolog [place] [address] DO Work Phone: No Panel Informationon 06-12 Canceled MP-Nephrolog [place] [address] DO Work Phone: Comment on above: CALCULATIONS OF NICK MATED GFR ARE PERFORMED USING THE 2020 CKD-EPI STUDY REFIT EQUATION WITHOUT THE RACE VARIABLE FOR THE IDMS-TRACEABLE CREATININE METHODS.https://jasn.asnjournals.org/content/early/ASN .5395777342 Tobacco Screening.on [address] [facility] a) Yes [facility] 230 DO Work Phone: [phone] Established Visit (Nephrolog y)on 05-29-2022 Established Visit (Nephrology) Diagnoses/Problems Bipolar depression (296.50) (F31.9) HTN (hypertension) (401.9) (I10) Hyponatremia (276.1) (E87.1) Orders Hyponatremia Basic Metabolic Panel; Status:Active; Requested for:29May2022; Patient Discussion/Summary Issues 1. Hypertension -blood pressure continues to be elevated but has improved on nifedipine 30 mg, will increase Nifedipine to 60 mg po daily. Continue to monitor blood pressure at home and record. Call office in 1 week with readings. Consider dose increase again if readings remain elevated. 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 States she has noticed a decrease. History of Present IllnessPt presents for a 1 week follow-up fopr elevated blood pressures. Started on Nifedipine 30 mg at appointment last week. Brought blood pressure log to the office. Systolic and diastolic readings remain elevated 150s-170s/100 but have improved. Reports sleep has improved since her blood pressures have been lower. Spoke w/ her psychiatrist about Tegretol dose and sodium levels. She notes psychiatrist is willing to work with nephrology to prevent significant issues w/ sodium levels. Review of Systems Constitutional: no fever, no chills, no recent weight gain and no recent weight loss. Eyes: no blurred vision and no diplopia. ENT: no hearing loss, no earache, no sore throat, no swollen glands in the neck and no nasal discharge. Cardiovascular: no chest pain, no palpitations and no lower extremity edema. Respiratory: no shortness of breath, no chronic cough and no shortness of breath during exertion. Gastrointestinal: no abdominal pain, no constipation, no heartburn, no vomiting, no bloody stools and no change in bowel movements. Genitourinary: no dysuria and no hematuria. Musculoskeletal: no arthralgias and no myalgias. Skin: no rashes and no skin lesions. Neurological: no headaches, no dizziness, no tingling and no numbness. Psychiatric: no confusion, no depression and no anxiety. Endocrine: no heat intolerance, no cold intolerance, appetite not increased, no thyroid disorder, no increased urinary frequency and no dry skin. Hematologic/Lymphatic: does not bleed easily and does not bruise easily. All other systems have been reviewed and are negative for complaint. Active Problems Bipolar depression (296.50) (F31.9) Class 2 obesity with body mass index (BMI) of 36.0 to 36.9 in adult (278.00,V85.36) (E66.9,Z68.36) Depression (311) (F32.A) Diabetes (250.00) (E11.9) Goiter (240.9) (E04.9) History of recurrent ear infection (V12.49) (Z86.69) HTN (hypertension) (401.9) (I10) Hyponatremia (276.1) (E87.1) Insomnia (780.52) (G47.00) Otitis externa (380.10) (H60.90) Seizures (780.39) (R56.9) Sinus infection (473.9) (J32.9) Past Medical History History of cerebrovascular accident (V12.54) (Z86.73) History of diabetes mellitus (V12.29) (Z86.39) History of thyroid disorder (V12.29) (Z86.39) Surgical History History of Back surgery Family History Family history of DM II (diabetes mellitus, type II), controlled Family history of Alzheimer's disease (V17.2) (Z82.0) Family history of cerebrovascular accident (CVA) (V17.1) (Z82.3) Family history of dementia (V17.2) (Z81.8) Family history of diabetes mellitus (V18.0) (Z83.3) Family history of Psychiatric diagnosis Social History Coffee Light cigarette smoker (1-9 cigarettes per day) (305.1) (F17.210) No illicit drug use Occasional alcohol use Allergies azithromycin Recorded By: James Sahu; 09/10/2021 3:20:00 PM Sulfa Antibiotics Recorded By: James Sahu; 09/10/2021 3:20:00 PM Current Meds Medication NameInstruction Accu-Chek Guide In Vitro StripTEST TWICE DAILY. Accu-Chek Guide w/Device KitTEST SUGARS TWICE DAILY Aspirin Low Dose 81 MG Oral Tablet Delayed ReleaseTAKE 1 TABLET BY MOUTH EVERY DAY carBAMazepine 200 MG Oral TabletTAKE 2 TABLETS TWICE DAILY Carvedilol 3.125 MG Oral TabletTAKE 1 TABLET BY MOUTH EVERY DAY Centrum Silver 50+Women Oral TabletTAKE 1 TABLET DAILY. D3-50 1.25 MG (84111 UT) Oral CapsuleTAKE 1 CAPSULE ONCE DAILY Ibuprofen 200 MG Oral TabletTAKE 3 TABLET Every 6 hours PRN Losartan Potassium 100 MG Oral TabletTake 1 tablet daily Magnesium Gluconate 500 MG Oral TabletTAKE 1 TABLET DAILY. Melatonin 3 MG Oral TabletTAKE 1 TABLET Bedtime PRN sleep At Bedtime Take 1 cap 1 hour before bedtime for sleep. metFORMIN HCl ER (OSM) 500 MG Oral Tablet Extended Release 24 HourTake 2 tablets twice daily. Mirtazapine 15 MG Oral TabletTAKE 1 TABLET AT BEDTIME. NIFEdipine ER 30 MG Oral Tablet Extended Release 24 HourTAKE 2 TABLET Daily Pioglitazone HCl - 30 MG Oral TabletTAKE 1 TABLET ONCE DAILY. Turmeric 500 MG Oral TabletTAKE 2 T (more content not included)... Normal PlanG Tobacco Screening.on 022 Tobacco use status CPHS a) Yes ZN-Njpeurx-A [facility] 230 DO Work Phone: [phone] Tobacco Screening. Yes MG-Uro logy-A [facility] 230 DO Work Phone: BASIC METABOLIC PANELon 05-10 Anion gap [Moles/Vol] 17 mmol/L Normal [facility] Comment on above: Performed By: #### B MP #### [address] [address] Calcium [Mass/Vol] 9.8 mg/dL Normal 8.6 - 10.3 [facility] Comment on above: Performed By: #### B MP #### [address] [address] Chloride [Moles/Vol] 95 mmol/L Low 98 - 107 [facility] Comment on above: Performed By: #### B MP #### [address] [address] Creatinine [Mass/Vol] 0.51 mg/dL Normal 0.50 - 1.05 [facility] Comment on above: Performed By: #### B MP #### [address] [address] eGFR FEMALE >90 Normal >90 [facility] Comment on above: Result Comment: CALC ULATIONS OF ESTIMATED GFR ARE PERFORMED USING THE 2020 CKD-EPI STUDY REFIT EQUATION WITHOUT THE RACE VARIABLE FOR THE IDMS-TRACEABLE CREATININE METHODS. https://jasn.asnjournals.org/content/early/ASN.4306791 988 Performed By: #### B MP #### [address] [address] Glucose [Mass/Vol] 250 mg/dL High 74 - 99 [facility] Comment on above: Performed By: #### B MP #### [address] [address] HCO3 (Bld) [Moles/Vol] 24 mmol/L Normal 21 - 32 [facility] Comment on above: Performed By: #### B MP #### [address] [address] Potassium [Moles/Vol] 4.6 mmol/L Normal 3.5 - 5.3 [facility] Comment on above: Performed By: #### B MP #### [address] [address] Sodium [Moles/Vol] 131 mmol/L Low 136 - 145 [facility] Comment on above: Performed By: #### B MP #### [address] [address] Urea nitrogen [Mass/Vol] 14 mg/dL Normal 6 - 23 [facility] Comment on above: Performed By: #### B MP #### [address] [address] CARBAMAZEPINEon 05-23-2022 CARBAMAZEPINE 12.1 ug/mL High 4.0 - 12.0 [facility] Comment on above: Performed By: #### B MP #### [address] [address] CBC AND DIFFERENTIALon 05-23 Basophils (Bld) [#/Vol] 0.00 10*3/uL Normal 0.00 - 0.10 [facility] Comment on above: Performed By: #### B MP #### [address] [address] Basophils/100 WBC (Bld) 0.4 % Normal 0.0 - 2.0 [facility] Comment on above: Performed By: #### B MP #### [address] [address] Eosinophils (Bld) [#/Vol] 0.10 10*3/uL Normal 0.00 - 0.70 [facility] Comment on above: Performed By: #### B MP #### [address] [address] Eosinophils/100 WBC (Bld) 1.8 % Normal 0.0 - 6.0 [facility] Comment on above: Performed By: #### B MP #### [address] [address] Erythrocyte distribution width (RBC) [Ratio] 13.1 % Normal 11.5 - 14.5 [facility] Comment on above: Performed By: #### B MP #### [address] [address] Hematocrit (Bld) [Volume fraction] 42.2 % Normal 36.0 - 46.0 [facility] Comment on above: Performed By: #### B MP #### [address] [address] Hemoglobin (Bld) [Mass/Vol] 14.3 g/dL Normal 12.0 - 16.0 [facility] Comment on above: Performed By: #### B MP #### [address] [address] Lymphocytes (Bld) [#/Vol] 3.10 10*3/uL Normal 1.20 - 4.80 [facility] Comment on above: Performed By: #### B MP #### [address] [address] Lymphocytes/100 WBC (Bld) 37.5 % Normal 13.0 - 44.0 [facility] Comment on above: Performed By: #### B MP #### [address] [address] MCHC (RBC) [Mass/Vol] 34.0 g/dL Normal 32.0 - 36.0 [facility] Comment on above: Performed By: #### B MP #### [address] [address] MCV (RBC) [Entitic vol] 90 fL Normal 80 - 100 [facility] Comment on above: Performed By: #### B MP #### [address] [address] Monocytes (Bld) [#/Vol] 0.60 10*3/uL Normal 0.10 - 1.00 [facility] Comment on above: Performed By: #### B MP #### [address] [address] Monocytes/100 WBC (Bld) 6.8 % Normal 2.0 - 10.0 [facility] Comment on above: Performed By: #### B MP #### [address] [address] Neutrophils (Bld) [#/Vol] 4.40 10*3/uL Normal 1.20 - 7.70 [facility] Comment on above: Result Comment: Perc ent differential counts (%) should be interpreted in the context of the absolute cell counts (cells/L). Performed By: #### B MP #### [address] [address] Neutrophils/100 WBC (Bld) 53.5 % Normal 40.0 - 80.0 [facility] Comment on above: Performed By: #### B MP #### [address] [address] NUCLEATED RBC 0.1 /100 WBC Normal [facility] Comment on above: Performed By: #### B MP #### [address] [address] Platelets (Bld) [#/Vol] 288 10*3/uL Normal 150 - 450 [facility] Comment on above: Performed By: #### B MP #### [address] [address] RBC 4.68 x10E12/L Normal 4.00 - 5.20 [facility] Comment on above: Performed By: #### B MP #### [address] [address] WBC (Bld) [#/Vol] 8.2 10*3/uL Normal 4.4 - 11.3 [facility] Comment on above: Performed By: #### B MP #### [address] [place] [address] Carbamazepine Level, Serumon 05-23-2022 carBAMazepine [Mass/Vol] 12.1 ug/mL above high threshold 4.0 - 12.0 [facility] [place] [place] [address] [place] Work Phone: Complete Blood Count + Diffe rentialon 05-23-2022 Basophils/100 WBC (Bld) 0.4 % 0.0 - 2.0 [facility] [place] [place] [address] DO Work Phone: [phone] Erythrocyte distribution width (RBC) [Ratio] 13.1 % See Below [place] [address] DO Work Phone: Comment on above: Reference Range: 11. 5 - 14.5 Hematocrit (Bld) [Volume fraction] 42.2 % See Below [place] [address] DO Work Phone: [phone] Comment on above: Reference Range: 36. 0 - 46.0 Hemoglobin (Bld) [Mass/Vol] 14.3 g/dL See Below [place] [address] DO Work Phone: Comment on above: Reference Range: 12. 0 - 16.0 Lymphocytes/100 WBC (Bld) 37.5 % See Below [place] [address] DO Work Phone: Comment on above: Reference Range: 13. 0 - 44.0 MCHC (RBC) [Mass/Vol] 34.0 g/dL See Below [place] [address] DO Work Phone: Comment on above: Reference Range: 32. 0 - 36.0 MCV (RBC) [Entitic vol] 90 fL 80 - 100 [place] [address] DO Work Phone: [phone] Monocytes/100 WBC (Bld) 6.8 % 2.0 - 10.0 [place] [address] DO Work Phone: Neutrophils/100 WBC (Bld) 53.5 % See Below [facility] [place] [place] [address] DO Work Phone: Comment on above: Reference Range: 40. 0 - 80.0 Platelets (Bld) [#/Vol] 288 10*3/uL 150 - 450 [facility] [place] [address] DO Work Phone: [phone] RBC (Bld) [#/Vol] 4.68 {x10E12/L} See Below [facility] [place] [address] DO Work Phone: Comment on above: Reference Range: 4.0 0 - 5.20 WBC (Bld) [#/Vol] 8.2 10*3/uL 4.4 - 11.3 -Nep hrolog [place] [address] DO Work Phone: [phone] Complete Blood Count + Differential 0.00 {x10E9/L} See Below [facility] [place] [address] DO Work Phone: [phone] Comment on above: Reference Range: 0.0 0 - 0.10 Complete Blood Count + Differential 0.10 {x10E9/L} See Below [facility] [place] [address] DO Work Phone: Comment on above: Reference Range: 0.0 0 - 0.70 Complete Blood Count + Differential 0.60 {x10E9/L} See Below [facility] [place] [place] [address] DO Work Phone: Comment on above: Reference Range: 0.1 0 - 1.00 Complete Blood Count + Differential 3.10 {x10E9/L} See Below [facility] [place] [address] DO Work Phone: Comment on above: Reference Range: 1.2 0 - 4.80 Complete Blood Count + Differential 4.40 {x10E9/L} See Below [facility] [place] [address] DO Work Phone: Comment on above: Reference Range: 1.2 0 - 7.70 Percent differential counts (%) should be interpreted in the context of the absolute cell counts (cells/L). Complete Blood Count + Differential 1.8 % 0.0 - 6.0 -Nephrolog [place] [address] DO Work Phone: Complete Blood Count + Differential 0.1 {/100_WBC} [facility] [place] [address] DO Work Phone: HEMOGLOBIN A1Con 05-23-2022 Glucose [Mass/Vol] 223 mg/dL Normal [facility] Comment on above: Performed By: #### H BA1E #### [address] [address] HbA1c (Bld) [Mass fraction] 9.4 % Abnormal [facility] Comment on above: Result Comment: Diag nosis of Diabetes-Adults Non-Diabetic: < or = 5.6% Increased risk for developing diabetes: 5.7-6.4% Diagnostic of diabetes: > or = 6.5% . Monitoring of Diabetes Age (y) Therapeutic Goal (%) Adults: >18 <7.0 Pediatrics: 13-18 <7.5 7-12 <8.0 0- 6 7.5-8.5 [employer]. Diabetes Care 33(S1), Aug 2009. Performed By: #### H BA1E #### [address] [address] HEPATIC FUNCTION PANELon Albumin [Mass/Vol] 4.4 g/dL Normal 3.4 - 5.0 [facility] Comment on above: Performed By: #### B MP #### [address] [address] ALP [Catalytic activity/Vol] 68 U/L Normal 33 - 110 [facility] Comment on above: Performed By: #### B MP #### [address] [address] ALT [Catalytic activity/Vol] 41 U/L Normal 7 - 45 [facility] Comment on above: Result Comment: Sharmila ents treated with Sulfasalazine may generate falsely decreased results for ALT. Performed By: #### B MP #### [address] [address] AST [Catalytic activity/Vol] 32 U/L Normal 9 - 39 [facility] Comment on above: Performed By: #### B MP #### [address] [address] Bilirubin [Mass/Vol] 0.4 mg/dL Normal 0.0 - 1.2 [facility] Comment on above: Performed By: #### B MP #### [address] [address] Bilirubin.indirect [Mass/Vol] 0.1 mg/dL Normal 0.0 - 0.3 [facility] Comment on above: Performed By: #### B MP #### [address] [address] Protein [Mass/Vol] 7.2 g/dL Normal 6.4 - 8.2 [facility] Comment on above: Performed By: #### B MP #### [address] [address] Hemoglobin A1Con 05-23-2022 Glucose [Mass/Vol] 223 mg/dL MP-Nep hrolog [facility] Darryn 3 DO Work Phone: HbA1c (Bld) [Mass fraction] 9.4 % Abnormal -Nephrolog [facility] 3 DO Work Phone: Comment on above: Diagnosis of Diabete s-Adults Non-Diabetic: < or = 5.6% Increased risk for developing diabetes: 5.7-6.4% Diagnostic of diabetes: > or = 6.5%. Monitoring of Diabetes Age (y) Therapeutic Goal (%) Adults: >18 <7.0 Pediatrics: 13-18 <7.5 7-12 <8.0 0- 6 7.5-8.5 [employer]. Diabetes Care 33(S1), Aug 2009. Hepatic Function Panelon Albumin BCP dye [Mass/Vol] 4.4 g/dL 3.4 - 5.0 -Nephrolog [place] [address] DO Work Phone: [phone] ALP [Catalytic activity/Vol] 68 U/L 33 - 110 -Nephrolog [place] [address] DO Work Phone: [phone] ALT With P-5'-P [Catalytic activity/Vol] 41 U/L 7 - 45 [facility] [place] [address] DO Work Phone: [phone] Comment on above: Patients treated wit h Sulfasalazine may generate falsely decreased results for ALT. AST With P-5'-P [Catalytic activity/Vol] 32 U/L 9 - 39 -Nephrolog [place] [address] DO Work Phone: [phone] Bilirubin [Mass/Vol] 0.4 mg/dL 0.0 - 1.2 -N ephrolog [place] [address] DO Work Phone: [phone] Bilirubin.direct [Mass/Vol] 0.1 mg/dL 0.0 - 0.3 -Nephrolog [place] [address] DO Work Phone: Protein [Mass/Vol] 7.2 g/dL 6.4 - 8.2 -Nep hrolog [place] [address] DO Work Phone: Initial Visit (Nephrology)on 05-23-2022 Initial Visit (Nephrology) Diagnoses/Problems HTN (hypertension) (401.9) (I10) Hyponatremia (276.1) (E87.1) Diabetes (250.00) (E11.9) Depression (311) (F32.A) Bipolar depression (296.50) (F31.9) Orders Start: NIFEdipine ER 30 MG Oral Tablet Extended Release 24 Hour; TAKE 1 TABLET DAILY Basic Metabolic Panel; Status:Active; Requested for:23May2022; Patient Discussion/Summary Issues: 1. Hyponatremia secondary to polydipsia and medications-sodium was rechecked on May 14 and at that time had improved to 135, she does state that she has been drinking more and her Tegretol medication was increased back to its normal dose, we will recheck her lab work today 2. Hypertension-blood pressure is elevated, she is not routinely checking her blood pressure at home however it was also elevated at her family doctor's appointment, we will start nifedipine 30 mg daily, she will take her blood pressure every day and return to the office in 1 week, she states she is not sure she will be able to remember to check her blood pressure and close follow-up will be instituted at this time to try to get her blood pressure back to within normal ranges. Recheck lab work today Start nifedipine 30 mg daily Check blood pressures at home Return to the office in 1 week. 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 Hypertension-uncontrolled Diabetes mellitus type 2 Bipolar disorder Chief Complaint [employer]- Hospital follow-up Lab review 05/14/2022 History of Present IllnessPatient being seen post discharge from the hospital for hyponatremia She was found to have underlying SIADH secondary to her medications and also had polydipsia she was drinking significant amounts of fluid Labs are reviewed On May 14 sodium was 135, potassium 4.1, chloride 96, bicarb 25 Renal function with a BUN of 10 and creatinine of 0.59 While hospitalized her sodium was as low as 124 She has predominantly been placed on a fluid restriction She states that she feels she has been drinking more fluid recently as her Tegretol has been increased She did not sleep well last night Her blood pressure is elevated in the office today, she does have a blood pressure cuff at home but does not check her blood pressure She thinks that if I give her a paper she may remember to check her blood pressure She does have difficulty getting to the office that she depends on her son and [id number] to give her a ride Review of Systems Constitutional: no fever, no chills, no recent weight gain and no recent weight loss. Eyes: no blurred vision and no diplopia. ENT: no hearing loss, no earache, no sore throat, no swollen glands in the neck and no nasal discharge. Cardiovascular: no chest pain, no palpitations and no lower extremity edema. Respiratory: no shortness of breath, no chronic cough and no shortness of breath during exertion. Gastrointestinal: no abdominal pain, no constipation, no heartburn, no vomiting, no bloody stools and no change in bowel movements. Genitourinary: no dysuria and no hematuria. Musculoskeletal: no arthralgias and no myalgias. Skin: no rashes and no skin lesions. Neurological: no headaches and no dizziness. Psychiatric: no confusion, no depression and no anxiety. Endocrine: no heat intolerance, no cold intolerance, appetite not increased, no thyroid disorder, no increased urinary frequency and no dry skin. Hematologic/Lymphatic: does not bleed easily and does not bruise easily. All other systems have been reviewed and are negative for complaint. Active Problems Bipolar depression (296.50) (F31.9) Class 2 obesity with body mass index (BMI) of 36.0 to 36.9 in adult (278.00,V85.36) (E66.9,Z68.36) Depression (311) (F32.A) Diabetes (250.00) (E11.9) Goiter (240.9) (E04.9) History of recurrent ear infection (V12.49) (Z86.69) HTN (hypertension) (401.9) (I10) Hyponatremia (276.1) (E87.1) Insomnia (780.52) (G47.00) Otitis externa (380.10) (H60.90) Seizures (780.39) (R56.9) Sinus infection (473.9) (J32.9) Past Medical History History of cerebrovascular accident (V12.54) (Z86.73) History of diabetes mellitus (V12.29) (Z86.39) History of thyroid disorder (V12.29) (Z86.39) Surgical History History of Back surgery Family History Family history of DM II (diabetes mellitus, type II), controlled Family history of Alzheimer's disease (V17.2) (Z82.0) Family history of cerebrovascular accident (CVA) (V17.1) (Z82.3) Family history of dementia (V17.2) (Z81.8) Family history of diabetes mellitus (V18.0) (Z83.3) Family history of Psychiatric diagnosis Social History Coffee Light cigarette smoker (1-9 cigarettes per day) (305.1) (F17.210) No illicit drug use Occasional alcohol use Allergies azithromycin Recorded By: James Sahu; 09/10/2021 3:20:00 PM Sulfa Antibiotics Recorded By: James Sahu; 09/10/2021 3:20:00 PM Current Meds Medication NameInstruction Accu-Chek Guide In Vitro (more content not included)... Normal [facility] - Chemistry and C hemistry - challengeon 05-23-2022 Anion gap [Moles/Vol] 17 mmol/L 10 - 20 MP-Nephrolog [facility] 3 DO Work Phone: [phone] Calcium [Mass/Vol] 9.8 mg/dL 8.6 - 10.3 MP-Nep hrolog [facility] 3 DO Work Phone: [phone] Chloride [Moles/Vol] 95 mmol/L below low threshold 98 - 107 -Nephrolog [place] [address] DO Work Phone: [phone] CO2 [Moles/Vol] 24 mmol/L 21 - 32 MP-Nephro log [facility] 3 DO Work Phone: [phone] Creatinine [Mass/Vol] 0.51 mg/dL See Below -Nephrolog [facility] 3 DO Work Phone: Comment on above: Reference Range: 0.5 0 - 1.05 Glucose [Mass/Vol] 250 mg/dL above high threshold 74 - 99 -Nephrolog [facility] 3 DO Work Phone: [phone] Potassium [Moles/Vol] 4.6 mmol/L 3.5 - 5.3 -Nephrolog [facility] 3 DO Work Phone: [phone] Sodium [Moles/Vol] 131 mmol/L below low threshold 136 - 145 -Nephrolog [facility] 3 DO Work Phone: [phone] Urea nitrogen [Mass/Vol] 14 mg/dL 6 - 23 -Nephrolog [place] [address] DO Work Phone: [phone] No Panel Informationon 05-23 >90 >90 -Nephrolog [facility] 3 DO Work Phone: Comment on above: CALCULATIONS OF NICK MATED GFR ARE PERFORMED USING THE 2020 CKD-EPI STUDY REFIT EQUATION WITHOUT THE RACE VARIABLE FOR THE IDMS-TRACEABLE CREATININE METHODS.https://jasn.asnjournals.org/content/early/ASN .7414787440 Tobacco Screening.on 022 Tobacco use status CPHS a) Yes MP-Nephrolog [facility] Darryn 3 DO Work Phone: Office Visit (Internal Medic ine)on 05-16-2022 Follow-up visit Diagnoses/Problems Assessed Diabetes (250.00) (E11.9) Bipolar depression (296.50) (F31.9) Class 2 obesity with body mass index (BMI) of 36.0 to 36.9 in adult (278.00,V85.36) (E66.9,Z68.36) Depression (311) (F32.A) HTN (hypertension) (401.9) (I10) Hyponatremia (276.1) (E87.1) Orders Diabetes Start: Jardiance 25 MG Oral Tablet; TAKE 1 TABLET BY MOUTH ONCE DAILY Rx By: James Sahu; Dispense: 30 Days ; #:30 Tablet; Refill: 11;For: Diabetes; JAMIE = N; Verified Transmission to [facility]; Last Updated By: SystemEndymed; 05/16/2022 1:51:21 PM Hemoglobin A1C; Status:Active; Requested for:16May2022; Perform:Lab Services - Lab To Draw (Blood Test); Due:14Aug2022;Ordered; For:Diabetes; Ordered By:James Sahu; HTN (hypertension) Stop: Losartan Potassium-HCTZ 100-25 MG Oral Tablet Rx By: James Sahu; Dispense: 90 Days ; #:90 Tablet; Refill: 3;For: HTN (hypertension); JAMIE = N; Sent To: [facility] [facility] follow up for lethargy and weakness found to have UTI and low Na - Na recovered to 135 wwith fluid restriction, hctz DC - has follow up ith Dr Cornelius 2. Uncontrolled DMII - a1c was 10.6 in 11/29 - pt did not start farxiga as it was too expensive, will see if jardiance is covered or what is cheaper to add - continue metformin 1000mg po bid - due tp pts bipolar depression she finds it cumbersome and difficult to check her blood sugars and struggles with motivation and doing what she knows she should do. d I believe that a freestyle beena would benefit her greatly as far as easier for her tp use, less steps and allows her to check more often and increase her compliance in regards to getting her diabetes under better control 3. HTN - on coreg, losartan 4. Bipolar depression, anxiety - sees psych - on Effexor and mirtazapine Chief Complaint 52 y/o female presents for hospital f/u Pt was hospitalized 04/28-04/30 due to bladder infection and low sodium She states she is doing better She is following up with Dr. Cornelius Thursday History of Present IllnessPatient is here today for Hospital follow up[ Patient went to the ED on 04/28/22 with vague symptoms including chills, achy, lethargic. Workup found that her NA was 124, she has had this issue in the past, POsitive for UTI. Was admitted for the sodium. Her Na did improve to 135. The day after she got home form the hospital she noticed that she had a tack stuck to the bottom of her slipper and it had poked into her foot, it Looks like it is healing well. Do recommend that she see podiatry. DMII - pt did not start farxiga because it was $80.SHe is only on metformin. SHe admits that she does not check her blood sugars because it is difficult for her to go through all the steps to prick her finger I think a FreeStyle beena would enable her to be more complaint as I think her bipolar depression makes it more difficult for her to care for herself and do what she needs to do, admits that she is not the best with her diet. Review of Systems Constitutional: no fever, no chills and not feeling poorly. ENT: no nosebleeds and no nasal discharge. Active Problems Problems Bipolar depression (296.50) (F31.9) Class 2 obesity with body mass index (BMI) of 36.0 to 36.9 in adult (278.00,V85.36) (E66.9,Z68.36) Depression (311) (F32.A) Diabetes (250.00) (E11.9) Goiter (240.9) (E04.9) History of recurrent ear infection (V12.49) (Z86.69) HTN (hypertension) (401.9) (I10) Hyponatremia (276.1) (E87.1) Insomnia (780.52) (G47.00) Otitis externa (380.10) (H60.90) Seizures (780.39) (R56.9) Sinus infection (473.9) (J32.9) Past Medical History Problems History of cerebrovascular accident (V12.54) (Z86.73) History of diabetes mellitus (V12.29) (Z86.39) History of thyroid disorder (V12.29) (Z86.39) Surgical History Problems History of Back surgery Family History Mother Family history of DM II (diabetes mellitus, type II), controlled Other Family history of Alzheimer's disease (V17.2) (Z82.0) Family history of cerebrovascular accident (CVA) (V17.1) (Z82.3) Family history of dementia (V17.2) (Z81.8) Family history of diabetes mellitus (V18.0) (Z83.3) Family history of Psychiatric diagnosis Social History Problems Coffee Light cigarette smoker (1-9 cigarettes per day) (305.1) (F17.210) No illicit drug use Occasional alcohol use Allergies Medication azithromycin Recorded By: James Sahu; 09/10/2021 3:20:00 PM Sulfa Antibiotics Recorded By: James Sahu; 09/10/2021 3:20:00 PM Current Meds Medication NameInstruction Accu-Chek Guide In Vitro StripTEST TWICE DAILY. Accu-Chek Guide w/Device KitTEST SUGARS TWICE DAILY Aspirin Low Dose 81 MG Oral Tablet Delayed ReleaseTAKE 1 TABLET BY MOUTH EVERY DAY B-12 Dots 500 MCG Oral Tablet Disintegrating Biotin 5000 MCG Oral Capsule carBAMazepine 200 MG Oral TabletTAKE 1 TABLET 3 TIMES DAILY. Carvedilol 3.12 (more content not included)... Normal [facility] Tobacco Screening.on 022 Fall risk assessment a) No falls within the last year [facility] Work Phone: Tobacco use status [facility] a) Yes [facility] Work Phone: Tobacco Screening. Yes [facility] Work Phone: Tobacco Screening. Adult [facility] Work Phone: BASIC METABOLIC PANELon 10-0 -2021 Anion gap [Moles/Vol] 18 mmol/L Normal 10 - 20 [facility] Comment on above: Performed By: #### B MP #### [address] [address] Calcium [Mass/Vol] 9.7 mg/dL Normal 8.6 - 10.3 [facility] Comment on above: Performed By: #### B MP #### [address] [address] Chloride [Moles/Vol] 96 mmol/L Low 98 - 107 [facility] Comment on above: Performed By: #### B MP #### [address] [address] Creatinine [Mass/Vol] 0.59 mg/dL Normal 0.50 - 1.05 [facility] Comment on above: Performed By: #### B MP #### [address] [address] eGFR FEMALE >90 Normal >90 [facility] Comment on above: Result Comment: CALC ULATIONS OF ESTIMATED GFR ARE PERFORMED USING THE 2020 CKD-EPI STUDY REFIT EQUATION WITHOUT THE RACE VARIABLE FOR THE IDMS-TRACEABLE CREATININE METHODS. https://jasn.asnjournals.org/content//ASN.7280491 988 Performed By: #### B MP #### [address] [address] Glucose [Mass/Vol] 311 mg/dL High 74 - 99 [facility] Comment on above: Performed By: #### B MP #### [address] [address] HCO3 (Bld) [Moles/Vol] 25 mmol/L Normal 21 - 32 [facility] Comment on above: Performed By: #### B MP #### [address] [address] Potassium [Moles/Vol] 4.1 mmol/L Normal 3.5 - 5.3 [facility] Comment on above: Performed By: #### B MP #### [address] [address] Sodium [Moles/Vol] 135 mmol/L Low 136 - 145 [facility] Comment on above: Performed By: #### B MP #### [address] [address] Urea nitrogen [Mass/Vol] 10 mg/dL Normal 6 - 23 [facility] Comment on above: Performed By: #### B MP #### [address] [address] Laboratory - Chemistry and C hemistry - challengeon 05-14-2022 Anion gap [Moles/Vol] 18 mmol/L 10 - 20 -Nephrolog [facility] 3 DO Work Phone: [phone] Calcium [Mass/Vol] 9.7 mg/dL 8.6 - 10.3 MP-Nep hrolog [facility] 3 DO Work Phone: [phone] Chloride [Moles/Vol] 96 mmol/L below low threshold 98 - 107 -Nephrolog [facility] 3 DO Work Phone: [phone] CO2 [Moles/Vol] 25 mmol/L 21 - 32 -Nephro log [facility] 3 DO Work Phone: [phone] Creatinine [Mass/Vol] 0.59 mg/dL See Below -Nephrolog [facility] 3 DO Work Phone: Comment on above: Reference Range: 0.5 0 - 1.05 Glucose [Mass/Vol] 311 mg/dL above high threshold 74 - 99 -Nephrolog [facility] 3 DO Work Phone: Potassium [Moles/Vol] 4.1 mmol/L 3.5 - 5.3 -Nephrolog [place] [address] DO Work Phone: [phone] Sodium [Moles/Vol] 135 mmol/L below low threshold 136 - 145 [facility] [place] [address] DO Work Phone: [phone] Urea nitrogen [Mass/Vol] 10 mg/dL 6 - [facility] [place] [address] DO Work Phone: No Panel Informationon 05-14 >90 >90 [facility] [place] [address] DO Work Phone: Comment on above: CALCULATIONS OF NICK MATED GFR ARE PERFORMED USING THE 2020 CKD-EPI STUDY REFIT EQUATION WITHOUT THE RACE VARIABLE FOR THE IDMS-TRACEABLE CREATININE METHODS.https://jasn.asnjournals.org/content/early//ASN .7469190544 Clinical Event Note-ED Post Discharge Result Follow Up: Betzaida 05-01-2022 Clinical Event Note-ED Post Discharge Result Follow Up: Brad Clinical Event: Clinical Event Note: TopicED Post Discharge Result Follow Up: Attempt 1, Complete: Urine Culture: E. coli Details Pharmacist Name: Lay Linares, Date: 05/01/22, Time: 12:14PM, Number Called: [phone], Spoke With: PatientReinier Patient contacted in regards a positive urine culture. She is currently on nitrofurantoin 1 capsule Q12H which is sensitive. Patient was instructed to continue taking full course of antibiotics and to f/u with PCP if symptoms worsen. Patient educated on the worsening signs and symptoms of UTI including an increase in flank pain or suprapubic pain, chills, fever, urgency, burning, frequency, foul smelling urine, blood in urine, and any abnormal discharge. Made aware to seek medical attention if experiencing any new or worsening symptoms and to follow up with PCP. Pt verbalizes understanding and has no other questions or concerns. Patient verbalized understanding and had no further questions or concerns. If there are any other questions for the ED Post-Discharge Culture Follow Up Team, please contact [phone]. . Lay Linares PharmD. PGY1 Resident [facility] Electronic Signatures: Cindy Metcalf (PharmD) (Signed 02-May-2022 08:42) Co-Signer: Clinical Event Note Lay Linares ([facility]) (Signed 01-May-2022 12:16) Authored: Clinical Event Note Last Updated: 02-May-2022 08:42 by Cindy Metcalf (PharmD) Normal [facility] BASIC METABOLIC PANELon 09- Anion gap [Moles/Vol] 13 mmol/L Normal 10 - 20 [facility] Comment on above: Performed By: #### B MP ####[address] [address] Calcium [Mass/Vol] 8.8 mg/dL Normal 8.6 - 10.[address] [facility] Comment on above: Performed By: #### B MP ####[address] [address] Chloride [Moles/Vol] 100 mmol/L Normal 98 - 107 [facility] Comment on above: Performed By: #### B MP ####[address] [address] Creatinine [Mass/Vol] 0.42 mg/dL Low 0.50 - 1.05 [facility] Comment on above: Performed By: #### B MP ####[address] [address] eGFR FEMALE >90 Normal >90 [facility] Comment on above: Result Comment: CALC ULATIONS OF ESTIMATED GFR ARE PERFORMED USING THE 2020 CKD-EPI STUDY REFIT EQUATION WITHOUT THE RACE VARIABLE FOR THE IDMS-TRACEABLE CREATININE METHODS. https://jasn.asnjournals.org/content/early//ASN.8978191 988 Performed By: #### B MP ####[address] [address] Glucose [Mass/Vol] 244 mg/dL High 74 - [address] [facility] Comment on above: Performed By: #### B MP ####[address] [address] HCO3 (Bld) [Moles/Vol] 25 mmol/L Normal 21 - 32 [facility] Comment on above: Performed By: #### B MP ####[address] [address] Potassium [Moles/Vol] 3.8 mmol/L Normal 3.5 - 5.3 [facility] Comment on above: Performed By: #### B MP ####[address] [address] Sodium [Moles/Vol] 134 mmol/L Low 136 - [address] [facility] Comment on above: Performed By: #### B MP ####[place] [id number] Urea nitrogen [Mass/Vol] 11 mg/dL Normal 6 - 23 [facility] Comment on above: Performed By: #### B MP ####[address] [address] Clinical Note - Pharmacy v2- Discharge Med Counselingon 04-30-2022 Clinical Note - Pharmacy v2-Discharge Med Counseling Clinical Note - Pharmacy v2: Discharge Meds: Document TopicDischarge Med Counseling Time [id number] minutes Prescription Scientific Editor Medications Home Medications Review Status for Reconciliation: Incomplete Med Status: Incomplete Medication History Drug Name: CARBAMAZEPINE 200 MG TABLET Instructions: 2 tab(s) orally 2 times a day Drug Name: CARVEDILOL 3.125 MG TABLET Instructions: 1 tab(s) orally once a day Drug Name: LOSARTAN POTASSIUM 100 MG TAB Instructions: 1 tab(s) orally once a day Drug Name: METFORMIN HCL ER 500 MG TABLET Instructions: 2 tab(s) orally 2 times a day Drug Name: MIRTAZAPINE 15 MG TABLET Instructions: 1 tab(s) orally once a day (at bedtime) Drug Name: VENLAFAXINE HCL ER 150 MG CAP Instructions: 1 cap(s) orally once a day with 75mg dose Drug Name: venlafaxine 75 mg oral capsule, extended release Instructions: 1 cap(s) orally once a day with 150mg dose Drug Name: Centrum Silver oral tablet Instructions: 1 tab(s) orally once a day Drug Name: ibuprofen 200 mg oral tablet Instructions: 3 tab(s) orally every 6 hours, As Needed Drug Name: Vitamin B-12 1000 mcg oral tablet Instructions: 1 tab(s) orally once a day Drug Name: Vitamin D3 50 mcg (2000 intl units) oral tablet Instructions: 1 tab(s) orally 2 times a day Drug Name: Zinc 140 mg (as elemental zinc 50 mg) oral tablet Instructions: 1 tab(s) orally once a day Drug Name: aspirin 81 mg oral tablet Instructions: 1 tab(s) orally once a day Drug Name: Vitamin C 1000 mg oral tablet Instructions: 1 tab(s) orally once a day Drug Name: Turmeric 500 mg oral capsule Instructions: 2 cap(s) orally once a day Drug Name: magnesium gluconate 500 mg oral tablet Instructions: 1 tab(s) orally once a day (at bedtime) Drug Name: nitrofurantoin macrocrystals-monohydrate 100 mg oral capsule Instructions: 1 cap(s) orally every 12 hours Medications DeliveredMacrobid Medications Delivered Topatient Delivery Date/[id number] 11:10 Medications ReviewedMacrobid Education TopicADR counseling; dosage, frequency, storage; medication indication; medication interactions; missed dose explanation; refills Learnerpatient Barriers to Learningnone Methodverbal Outcome Evaluation2=meets goals/outcomes Additional NotesDiscussed discharge medications with patient. Patient was given home medication summary and Lexicomp patient education handout for Macrobid. Reviewed when next doses of medications are due based on last doses given inpatient. Review of medications included therapy expectations, side effects and drug interactions. She was advised to finish the full course of medicine so as to avoid recurrent/resistant infection, and to return back to the ED if she develops any worsening hematuria/dysuria, flank pain or systemic signs/symptoms of infection (ex. fever/chills). Patient was agreeable to having Macrobid filled @ [facility] and was subsequently brought to the bedside. Patient verbalized understanding of medications. Allergy: Allergies Summary Allergy Allergen: sulfa drugs Type: Drug Category Reaction: Unknown Electronic Signatures: Franko Gonzalez (PharmD) (Signed 30-Apr-2022 11:23) Authored: Discharge Meds, Allergy Last Updated: 30-Apr-2022 11:23 by Franko Gonzalez (PharmD) [facility] Discharge [id number] Discharge Profile2 Discharge Orders: Anticipated Discharge Date: Anticipated Discharge [id number] Anticipated Discharge Time09:27 Problem List: Additional Dx: UTI (urinary tract infection): Catalog Name: Urinary tract infection, site not specified Hyponatremia: Catalog Name: Hypo-osmolality and hyponatremia DNAR: Code Status at Discharge: Full Code Activity: activity as tolerated. May shower. May return to school/work Instructions: May drive. Diet: Dietresume normal diet, diabetic/carbohydrate counted Diabetic/Carbohydrate Tsjyvhr44/gram Carb/meal, 30gram Carb snack (2) Diet Consistency/Textureregula r / thin Additional Orders: Additional Instructions discharge plan follow up with primary care phyiscian within two weeks post discharge follow up with dr christian, podiatry for diabetic foot wound care follow up with endocrionlogist for DM management follow up with dr cornelius for hyponatremia STOP taking hydrochloathizide Dont drink alot of fluids this will deplete your sodium can resume other home medications call 911 or go to nearest ED if symptoms worsen/persist Call Provider If (Homegoing Patients): Breathing faster than normal. Breathing harder than normal or having retractions. Fever of 100.4 F (38 C) or higher. Temperature is greater than 102 degrees. Chills. Drinking less than normal. Not being able to go 4-6 hours between albuterol treatments. Urinating less than normal, over 1 day. Urinating less than 4 times per day. Acting very sleepy and difficult to awaken. Vomiting (throwing up) and not able to eat or drink for 12 hours. 3 or more loose, watery bowel movements in 24 hours (diarrhea). Any new concerning symptoms. Provider FINAL REVIEW of Orders: Final Review: Final Review of Medication Reconciliation and Orders Completedby EARLY CHILDHOOD LEAD TEACHER Reviewing LUCÍA Emery at 30-Apr-2022 09:47:04 Appointments: Follow-Up Appointment 01: Physician/Dept/ServiceDr. Sahu Reason for Referralpost hospitalization Call to Schedule in2 [place] [address] Phone [phone] CommentsPlease call to schedule within 2 weeks of discharge Follow-Up Appointment 02: Physician/Dept/ServiceDr. Cornelius Reason for Referralhypnatremia Call to Schedule in2 weeks [id number] [place] [address] Phone [phone] CommentsPlease call to schedule within 2 weeks of discharge Follow-Up Appointment 03: Physician/Dept/ServiceDr. Christian Reason for ReferralDM foot care Call to Schedule in2 weeks [id number] [facility] [address] [facility], [address] [place] [address] Phone [phone] CommentsPlease call to schedule within 2 weeks of discharge Follow-Up Appointment 04: Physician/Dept/ServiceDr. Jordan Reason for ReferralDM, Endocrinology Call to Schedule in2 weeks [id number] [facility], [address] [place] [address] Phone [phone] CommentsPlease call to schedule within 2 weeks of discharge Electronic Signatures: Katerina Akbar (EARLY CHILDHOOD LEAD TEACHER-SYSTEMS SUPPORT ENGINEER) (Signed 30-Apr-2022 09:47) Authored: Discharge Orders, Provider FINAL REVIEW of Orders, Appointments, Gold Form - Churn Operator Summary Vane Moran ([facility]) (Signed 30-Apr-2022 10:30) Authored: Discharge Orders, Appointments Last Updated: 30-Apr-2022 10:30 by Vane Moran ([facility]) Normal [facility] GLUCOSE-POCTon 04-30-2022 Glucose [Mass/Vol] 249 mg/dL High 74 - [address] [facility] Comment on above: Performed By: #### G MATTHEW #### [facility] [address] [place] [address] Laboratory - Chemistry and C hemistry - challengeon 04-30-2022 Glucose [Mass/Vol] 249 mg/dL above high threshold 74 - 99 MP-Nephrolog [facility] 3 DO Work Phone: [phone] Anion gap [Moles/Vol] 13 mmol/L 10 - 20 MP-Nephrolog [facility] Darryn 3 DO Work Phone: [phone] Calcium [Mass/Vol] 8.8 mg/dL 8.6 - 10.3 MP-Nep hrolog [facility]ryn 3 DO Work Phone: [phone] Chloride [Moles/Vol] 100 mmol/L 98 - 107 -N ephrolog [place] [address] DO Work Phone: [phone] CO2 [Moles/Vol] 25 mmol/L 21 - 32 -Nephro log [place] [address] DO Work Phone: [phone] Creatinine [Mass/Vol] 0.42 mg/dL below low threshold See Below [facility] [place] [address] DO Work Phone: Comment on above: Reference Range: 0.5 0 - 1.05 Glucose [Mass/Vol] 244 mg/dL above high threshold 74 - 99 [facility] [place] [address] DO Work Phone: [phone] Potassium [Moles/Vol] 3.8 mmol/L 3.5 - 5.3 [facility] [place] [address] DO Work Phone: [phone] Sodium [Moles/Vol] 134 mmol/L below low threshold 136 - 145 [place] [address] [place] Work Phone: [phone] Urea nitrogen [Mass/Vol] 11 mg/dL 6 - 23 [facility] [address] DO Work Phone: No Panel Informationon 04-30 >90 >90 [facility] [place] [address] DO Work Phone: Comment on above: CALCULATIONS OF NICK MATED GFR ARE PERFORMED USING THE 2020 CKD-EPI STUDY REFIT EQUATION WITHOUT THE RACE VARIABLE FOR THE IDMS-TRACEABLE CREATININE METHODS.https://jasn.asnjournals.org/content//ASN .1448076204 Nutrition Therapy-Assessment on 04-30-2022 Nutrition Therapy-Assessment Assessment Subjective/Objective: Note Type: Assessment Note Authored by: Registered Dietitian Chief Of Production Pager Number: [phone] Nutrition Note: The patient is a 52 year old Female admitted to the medical service for UTI and hyponatremia. MST score 3 - weight loss and decreased po PMHx: htn, bipolar and DM, Tia, thyroid goiter, VADIM. Objective Information: T PRBPMAPSpO2 [id number]/8596% Date/Time04/30 7: 7: 7: 7: 7:14 Range(35C - 36C ) (67 - 82 ) (16 - 18 ) (133 - 163 )/ (77 - 90 ) (94% - 99% ) Pain reported at 04/30 7:42: 0 = None ---- Intake and Output ----- Mn/Dy/Year TimeIntakeOutputNet Apr 30, 2022 6:00 [id number] Apr 29, 2022 10:00 [id number] Apr 29, 2022 2:00 [id number] The Intake and Output Totals for the last 24 hours are: IntakeOutputNet [id number] Height/Weight: Height in cm: 167.5 centimeter(s) Weight (kg): 97.7 BMI (kg/m2): 34.822 square meter DBW (kg): 59 %DBW: 166 Weight history/ % weight change: Usual weight 230# (105 kg) loss of 6.8 kg (6.5%) over 1 month - thinks was due to infection Significant Weight Loss: yes; 6.5% in 1 months Interpretation of Weight Loss: >5% in 1 month Recent Lab Results: Results: I have reviewed these laboratory results: Glucose_POCT 30-Apr-2022 07:48:00 ResultValue Glucose-POCT 249 H Basic Metabolic Panel 30-Apr-2022 04:37:00 ResultValue Glucose, Serum 244 H NA 134 L K 3.8 CL 100 Bicarbonate, Serum 25 Anion Gap, Serum 13 BUN 11 CREAT 0.42 L GFR Female >90 Calcium, Serum 8.8 Nutrition Labs: Special Chemistry: 03-Dec-2021 14:20, Hemoglobin A1C Hemoglobin A1C, Level10.6 Diagnosis of Diabetes-Adults Non-Diabetic: < or = 5.6% Increased risk for developing diabetes: 5.7-6.4% Diagnostic of diabetes: > or = 6.5% . Monitoring of Diabetes Age (y) Therapeutic Goal (%) Adults: >18 <7.0 Pediatrics: 13-18 <7.5 7-12 <8.0 0- 6 7.5-8.5 [employer]. Diabetes Care 33(S1), Aug 2009. Estimated Average [id number] Current Active Medications/PN: Ascorbic Acid, Tablet (VITAMIN C) DOSE = 1,000 mg Oral Daily, 28-Apr-2022 Cyanocobalamin, Tablet DOSE = 1,000 microgram(s) Oral Daily, 28-Apr-2022 Mirtazapine - PEDS, Tablet (REMERON) DOSE = 15 mg Oral Every Night Ca mg/DOSE x 1 = 15 mg/Dose (Daily Total is 15 mg), 28-Apr-2022 Docusate, Capsule (COLACE) DOSE = 100 mg Oral 2 Times a Day, PRN Constipation, 28-Apr-2022 Pantoprazole, Enteric Coated Tablet (PROTONIX) DOSE = 40 mg Oral Daily, 28-Apr-2022 Insulin Lispro Mild Corrective Scale, Give SubCutaneous 3 Times a Day Before Meals Hypoglycemia Protocol Call LIP unit(s) if Blood Glucose is between 0 - 70 0 unit(s) if Blood Glucose is between 71 - 150 2 unit(s) if Blood Glucose is between 151 - 200 4 unit(s) if Blood Glucose is between 201 - 250 6 unit(s) if Blood Glucose is between 251 - 300 8 unit(s) if Blood Glucose is between 301 - 350 10 unit(s) if Blood Glucose is between 351 - 400 Notify Provider unit(s) if Blood Glucose is greater than 400 Notes from Pharmacy: [facility], 28-Apr-2022 Metoprolol Injectable, (LOPRESSOR) DOSE = 5 mg IntraVenous Push Every 6 Hours, PRN hypertension Ca mg/DOSE x 1 = 5 mg/Dose (Daily Total is 20 mg) Clinician Notes: give if SBP >150/90, HOLD IF HR<75, 28-Apr-2022 carBAMazepine, Tablet (TEGRETOL) DOSE = 400 mg Oral 2 Times a Day Notes from Pharmacy: Reproductive Risk- Single Nitrile Glove, 29-Apr-2022 Losartan, Tablet (COZAAR) DOSE = 100 mg Oral Daily, 29-Apr-2022 Nitrofurantoin Extended Release, Capsule (MACROBID) DOSE = 100 mg Oral Every 12 Hours, 29-Apr-2022 Nutrition Orders: Diet, Cardiac; Diabetic Adult Fluid Management: Restrict Fluids to 1500 ml/day 60gram Carb/meal, 30gram Carb evening snack (0906-3740 calories), 28-Apr-2022 Food/Nutrition Related History: Energy Intake: good > 75% Food/Nutrition Related History: Seen at breakfast ate all of meal. Stated had not been eating right at home - a lot of carbs and processed food, just didn't care anymore to eat right. Now understands that she needs to watch her diet. GI Symptoms: none Time Frame for GI Symptoms Greater Than 2 Weeks: not applicable Oral Problems: denies Mobility: normal activity Nutritional Supplements: denies, hasn't taken for a long time Nutrition Focused Physical Findings: Physical Findings: deferred Subcutaneous Fat Loss: Orbital Fat Pads: Well Nourished (Slightly bulging fat pads) Buccal Fat Pads: Well Nourished (Full, rounded cheeks) Triceps: Well nourished (Ample fat tissue) Muscle Wasting: Temporalis: Well nourished (Well-defined muscle) Pectoralis (Clavicular Region): Well nourished (Clavicle not visible) Deltoid/Trapezius: Well Nourished (Rounded appearance at arm, shoulder and neck) Estimated Needs: kcals/day: 1692-4965 Predictive Equation Used: [facility] [place] protein/day: 78-98 (more content not included)... [facility] Order Reconciliationon 04-30 Order Reconciliation Page 1 Discharge Reconciliation Document Reconciliation Type: Discharge requested on behalf of Katerina Akbar (Advanced Practice Nurse) done by Katerina Akbar (EARLY CHILDHOOD LEAD TEACHER-[facility]) Discharge - Partial Reconciliation: 30-Apr-2022 09:27 by: Katerina Akbar (EARLY CHILDHOOD LEAD TEACHER-[facility]) Discharge - Reconciliation: 30-Apr-2022 09:39 by: Katerina Akbar (EARLY CHILDHOOD LEAD TEACHER-SYSTEMS SUPPORT ENGINEER) Home Medications EnteredHOME MEDICATIONS AT DISCHARGE DateReconciliation Comment/ Additional Information aspirin 81 mg oral tablet 1 tab(s) orally once a day 28-Apr-2022 12:54 aspirin 81 mg oral tablet 1 tab(s) orally once a day 28-Apr-2022 12:54 aspirin 81 mg oral tablet is continued as aspirin 81 mg oral tablet CARBAMAZEPINE 200 MG TABLET 2 tab(s) orally 2 times a day 28-Apr-2022 10:37 CARBAMAZEPINE 200 MG TABLET 2 tab(s) orally 2 times a day 28-Apr-2022 10:37 CARBAMAZEPINE 200 MG TABLET is continued as CARBAMAZEPINE 200 MG TABLET CARVEDILOL 3.125 MG TABLET 1 tab(s) orally once a day 28-Apr-2022 10:37 CARVEDILOL 3.125 MG TABLET 1 tab(s) orally once a day 28-Apr-2022 10:37 CARVEDILOL 3.125 MG TABLET is continued as CARVEDILOL 3.125 MG TABLET Centrum Silver oral tablet 1 tab(s) orally once a day 28-Apr-2022 12:52 Centrum Silver oral tablet 1 tab(s) orally once a day 28-Apr-2022 12:52 Centrum Silver oral tablet is continued as Centrum Silver oral tablet HYDROCHLOROTHIAZIDE 25 MG TAB 1 tab(s) orally once a day 28-Apr-2022 10:37 Discontinued; Discontinue from ORM HYDROCHLOROTHIAZIDE 25 MG TAB is not required ibuprofen 200 mg oral tablet 3 tab(s) orally every 6 hours, As Needed 28-Apr-2022 12:52 ibuprofen 200 mg oral tablet 3 tab(s) orally every 6 hours, As Needed 28-Apr-2022 12:52 ibuprofen 200 mg oral tablet is continued as ibuprofen 200 mg oral tablet LOSARTAN POTASSIUM 100 MG TAB 1 tab(s) orally once a day 28-Apr-2022 10:37 LOSARTAN POTASSIUM 100 MG TAB 1 tab(s) orally once a day 28-Apr-2022 10:37 LOSARTAN POTASSIUM 100 MG TAB is continued as LOSARTAN POTASSIUM 100 MG TAB magnesium gluconate 500 mg oral tablet 1 tab(s) orally once a day (at bedtime) 28-Apr-2022 12:55 magnesium gluconate 500 mg oral tablet 1 tab(s) orally once a day (at bedtime) 28-Apr-2022 12:55 magnesium gluconate 500 mg oral tablet is continued as magnesium gluconate 500 mg oral tablet METFORMIN HCL ER 500 MG TABLET 2 tab(s) orally 2 times a day 28-Apr-2022 10:37 METFORMIN HCL ER 500 MG TABLET 2 tab(s) orally 2 times a day 28-Apr-2022 10:37 METFORMIN HCL ER 500 MG TABLET is continued as METFORMIN HCL ER 500 MG TABLET MIRTAZAPINE 15 MG TABLET 1 tab(s) orally once a day (at bedtime) 28-Apr-2022 10:38 MIRTAZAPINE 15 MG TABLET 1 tab(s) orally once a day (at bedtime) 28-Apr-2022 10:38 MIRTAZAPINE 15 MG TABLET is continued as MIRTAZAPINE 15 MG TABLET Turmeric 500 mg oral capsule 2 cap(s) orally once a day 28-Apr-2022 12:55 Turmeric 500 mg oral capsule 2 cap(s) orally once a day 28-Apr-2022 12:55 Turmeric 500 mg oral capsule is continued as Turmeric 500 mg oral capsule venlafaxine 75 mg oral capsule, extended release 1 cap(s) orally once a day with 150mg dose 28-Apr-2022 12:51 venlafaxine 75 mg oral capsule, extended release 1 cap(s) orally once a day with 150mg dose 28-Apr-2022 12:51 venlafaxine 75 mg oral capsule, extended release is continued as venlafaxine 75 mg oral capsule, extended release VENLAFAXINE HCL ER 150 MG CAP 1 cap(s) orally once a day with 75mg dose 28-Apr-2022 10:38 VENLAFAXINE HCL ER 150 MG CAP 1 cap(s) orally once a day with 75mg dose 28-Apr-2022 10:38 VENLAFAXINE HCL ER 150 MG CAP is continued as VENLAFAXINE HCL ER 150 MG CAP Vitamin B-12 1000 mcg oral tablet 1 tab(s) orally once a day 28-Apr-2022 12:53 Vitamin B-12 1000 mcg oral tablet 1 tab(s) orally once a day 28-Apr-2022 12:53 Vitamin B-12 1000 mcg oral tablet is continued as Vitamin B-12 1000 mcg oral tablet Vitamin C 1000 mg oral tablet 1 tab(s) orally once a day 28-Apr-2022 12:54 Vitamin C 1000 mg oral tablet 1 tab(s) orally once a day 28-Apr-2022 12:54 Vitamin C 1000 mg oral tablet is continued as Vitamin C 1000 mg oral tablet Vitamin D3 50 mcg (2000 intl units) oral tablet 1 tab(s) orally 2 times a day 28-Apr-2022 12:53 Vitamin D3 50 mcg (2000 intl units) oral tablet 1 tab(s) orally 2 times a day 28-Apr-2022 12:53 Vitamin D3 50 mcg (2000 intl units) oral tablet is continued as Vitamin D3 50 mcg (2000 intl units) oral tablet Zinc 140 mg (as elemental zinc 50 mg) oral tablet 1 tab(s) orally once a day 28-Apr-2022 12:53 Zinc 140 mg (as elemental zinc 50 mg) oral tablet 1 tab(s) orally once a day 28-Apr-2022 12:53 Zinc 140 mg (as elemental zinc 50 mg) oral tablet is continued as Zinc 140 mg (as elemental zinc 50 mg) oral tablet Current OrdersDateHOME MEDICATIONS AT DISCHARGE DateReconciliation Comment/ Additional Information Acetaminophen Tablet (TYLENOL)DOSE = 650 mg Oral Every 4 Hours, PRN Temp Greater Than or Equal to 38.0 C 28-Apr-2022 13:59 Acetaminophen is not required A (more content not included)... Normal [facility] CBC AND DIFFERENTIALon 04-29 Basophils (Bld) [#/Vol] 0.00 10*3/uL Normal 0.00 - 0.10 [facility] Comment on above: Performed By: #### C BCDF ####[address] [address] Basophils/100 WBC (Bld) 0.3 % Normal 0.0 - 2.0 [facility] Comment on above: Performed By: #### C BCDF ####[address] [address] Eosinophils (Bld) [#/Vol] 0.10 10*3/uL Normal 0.00 - 0.70 [facility] Comment on above: Performed By: #### C BCDF ####[address] [address] Eosinophils/100 WBC (Bld) 1.9 % Normal 0.0 - 6.0 [facility] Comment on above: Performed By: #### C BCDF ####[address] [address] Erythrocyte distribution width (RBC) [Ratio] 13.3 % Normal 11.5 - 14.5 [facility] Comment on above: Performed By: #### C BCDF ####[address] [address] Hematocrit (Bld) [Volume fraction] 38.9 % Normal 36.0 - 46.0 [facility] Comment on above: Performed By: #### C BCDF ####[address] [address] Hemoglobin (Bld) [Mass/Vol] 13.4 g/dL Normal 12.0 - 16.0 [facility] Comment on above: Performed By: #### C BCDF ####[address] [address] Lymphocytes (Bld) [#/Vol] 2.00 10*3/uL Normal 1.20 - 4.80 [facility] Comment on above: Performed By: #### C BCDF ####[address] [address] Lymphocytes/100 WBC (Bld) 43.9 % Normal 13.0 - 44.0 [facility] Comment on above: Performed By: #### C BCDF ####[address] [address] MCHC (RBC) [Mass/Vol] 34.5 g/dL Normal 32.0 - 36.0 [facility] Comment on above: Performed By: #### C BCDF ####[address] [address] MCV (RBC) [Entitic vol] 89 fL Normal 80 - 100 [facility] Comment on above: Performed By: #### C BCDF ####[address] [address] Monocytes (Bld) [#/Vol] 0.40 10*3/uL Normal 0.10 - 1.00 [facility] Comment on above: Performed By: #### C BCDF ####[address] [address] Monocytes/100 WBC (Bld) 9.8 % Normal 2.0 - 10.0 [facility] Comment on above: Performed By: #### C BCDF ####[address] [address] Neutrophils (Bld) [#/Vol] 2.00 10*3/uL Normal 1.20 - 7.70 [facility] Comment on above: Result Comment: Perc ent differential counts (%) should be interpreted in the context of the absolute cell counts (cells/L). Performed By: #### C BCDF ####[address] [address] Neutrophils/100 WBC (Bld) 44.1 % Normal 40.0 - 80.0 [facility] Comment on above: Performed By: #### C BCDF ####[address] [address] NUCLEATED RBC 0.1 /100 WBC Normal [facility] Comment on above: Performed By: #### C BCDF ####[address] [address] Platelets (Bld) [#/Vol] 225 10*3/uL Normal 150 - 450 [facility] Comment on above: Performed By: #### C BCDF ####[address] [address] RBC 4.34 x10E12/L Normal 4.00 - 5.20 [facility] Comment on above: Performed By: #### C BCDF ####[address] [address] WBC (Bld) [#/Vol] 4.5 10*3/uL Normal 4.4 - 11.[address] [facility] Comment on above: Performed By: #### C BCDF ####[address] [address] COMPREHENSIVE PANELon 2021 Albumin [Mass/Vol] 3.7 g/dL Normal 3.4 - 5.[address] [facility] Comment on above: Performed By: #### C MP ####[address] [address] ALP [Catalytic activity/Vol] 58 U/L Normal 33 - 110 [facility] Comment on above: Performed By: #### C MP ####[address] [address] ALT [Catalytic activity/Vol] 58 U/L High 7 - 45 [facility] Comment on above: Result Comment: Sharmila ents treated with Sulfasalazine may generate falsely decreased results for ALT. Performed By: #### C MP ####[address] [address] Anion gap [Moles/Vol] 14 mmol/L Normal 10 - 20 [facility] Comment on above: Performed By: #### C MP ####[address] [address] AST [Catalytic activity/Vol] 60 U/L High 9 - 39 [facility] Comment on above: Performed By: #### C MP ####[address] [address] Bilirubin [Mass/Vol] 0.4 mg/dL Normal 0.0 - 1.2 [facility] Comment on above: Performed By: #### C MP ####[address] [address] Calcium [Mass/Vol] 8.5 mg/dL Low 8.6 - 10.[address] [facility] Comment on above: Performed By: #### C MP ####[address] [address] Chloride [Moles/Vol] 97 mmol/L Low 98 - 107 [facility] Comment on above: Performed By: #### C MP ####[address] [address] Creatinine [Mass/Vol] 0.40 mg/dL Low 0.50 - 1.05 [facility] Comment on above: Performed By: #### C MP ####[address] [address] eGFR FEMALE >90 Normal >90 [facility] Comment on above: Result Comment: CALC ULATIONS OF ESTIMATED GFR ARE PERFORMED USING THE 2020 CKD-EPI STUDY REFIT EQUATION WITHOUT THE RACE VARIABLE FOR THE IDMS-TRACEABLE CREATININE METHODS. https://jasn.asnjournals.org/content//ASN.5361045 988 Performed By: #### C MP ####[address] [place] [address] Glucose [Mass/Vol] 259 mg/dL High 74 - [address] [facility] Comment on above: Performed By: #### C MP ####[address] [address] HCO3 (Bld) [Moles/Vol] 25 mmol/L Normal 21 - 32 [facility] Comment on above: Performed By: #### C MP ####[address] [address] Potassium [Moles/Vol] 3.6 mmol/L Normal 3.5 - 5.3 [facility] Comment on above: Performed By: #### C MP ####[address] [address] Protein [Mass/Vol] 6.4 g/dL Normal 6.4 - 8.[address] [facility] Comment on above: Performed By: #### C MP ####[address] [address] Sodium [Moles/Vol] 132 mmol/L Low 136 - [address] [facility] Comment on above: Performed By: #### C MP ####[address] [address] Urea nitrogen [Mass/Vol] 9 mg/dL Normal 6 - 23 [facility] Comment on above: Performed By: #### C MP ####[address] [address] Complete Blood Count + Diffe rentialon 04-29-2022 Basophils/100 WBC (Bld) 0.3 % 0.0 - 2.0 -Nephrolog [place] [address] DO Work Phone: Erythrocyte distribution width (RBC) [Ratio] 13.3 % See Below [facility] [place] [address] DO Work Phone: Comment on above: Reference Range: 11. 5 - 14.5 Hematocrit (Bld) [Volume fraction] 38.9 % See Below [facility] [place] [place] [address] DO Work Phone: Comment on above: Reference Range: 36. 0 - 46.0 Hemoglobin (Bld) [Mass/Vol] 13.4 g/dL See Below [facility] [address] DO Work Phone: Comment on above: Reference Range: 12. 0 - 16.0 Lymphocytes/100 WBC (Bld) 43.9 % See Below [facility] [place] [address] DO Work Phone: Comment on above: Reference Range: 13. 0 - 44.0 MCHC (RBC) [Mass/Vol] 34.5 g/dL See Below [facility] [address] DO Work Phone: [phone] Comment on above: Reference Range: 32. 0 - 36.0 MCV (RBC) [Entitic vol] 89 fL 80 - 100 [place] [address] DO Work Phone: [phone] Monocytes/100 WBC (Bld) 9.8 % 2.0 - 10.0 [facility] [address] DO Work Phone: [phone] Neutrophils/100 WBC (Bld) 44.1 % See Below [place] [address] DO Work Phone: [phone] Comment on above: Reference Range: 40. 0 - 80.0 Platelets (Bld) [#/Vol] 225 10*3/uL 150 - 450 [facility] [place] [address] DO Work Phone: [phone] RBC (Bld) [#/Vol] 4.34 {x10E12/L} See Below [facility] [place] [address] DO Work Phone: Comment on above: Reference Range: 4.0 0 - 5.20 WBC (Bld) [#/Vol] 4.5 10*3/uL 4.4 - 11.3 -Nep hrolog [place] [address] DO Work Phone: [phone] Complete Blood Count + Differential 0.00 {x10E9/L} See Below [facility] [address] DO Work Phone: Comment on above: Reference Range: 0.0 0 - 0.10 Complete Blood Count + Differential 0.10 {x10E9/L} See Below [place] [address] DO Work Phone: Comment on above: Reference Range: 0.0 0 - 0.70 Complete Blood Count + Differential 0.40 {x10E9/L} See Below [place] [address] DO Work Phone: Comment on above: Reference Range: 0.1 0 - 1.00 Complete Blood Count + Differential 2.00 {x10E9/L} See Below [place] [address] DO Work Phone: Comment on above: Reference Range: 1.2 0 - 4.80 Reference Range: 1.2 0 - 7.70 Percent differential counts (%) should be interpreted in the context of the absolute cell counts (cells/L). Complete Blood Count + Differential 1.9 % 0.0 - 6.0 [place] [address] DO Work Phone: Complete Blood Count + Differential 0.1 {/100_WBC} [place] [address] DO Work Phone: Consult-Nephrologyon 022 Consult-Nephrology Service: Service: Nephrology Consult: Consult requested by (Attending Name): Ajit Torrez Reason: hyponatremia History of Present Illness: HPI: REINIER MENDOZA is a 52 year old Female She presented to the emergency room secondary to not feeling well for about 3 days. She has had decreased p.o. intake chills fatigue and body aches. She is also felt weak pretty much globally. She was found to have low sodium. She has a past medical history of hypertension, bipolar disorder, thyroid disorder, TIAs and obstructive sleep apnea for which she wears a CPAP machine as well as diabetes. Her past surgical history includes back surgery and a D&C Her family history includes diabetes Her social history includes that she lives at home independently she is a smoker. She states that she does binge smoke. She also drinks alcohol although very rarely. She states that she has had a bipolar disorder for many years. She has had multiple episodes of having issues with her sodium secondary to her bipolar medications. She also states that she does binge drink at times. She drinks tons of IV fluids at a time. She states that she drinks gallons of water per day This a.m. she is feeling pretty well She has no major complaints currently A full 10 point review of systems was obtained and is negative except HPI as above Review Family/Social History and ROS: Social History: Smoking Status: moderate user (uses 11-30 cig/day, OR 0.5-1.5 ppd, OR 2-3 cans/pouches loose leaf tobacco per week, OR 0.5-1.5 vape pods per day) (1) Alcohol Use: occasionally(1) Drug Use: denies (1) Allergies: sulfa drugs: Unknown Objective: Objective Information: T PRBPMAPSpO2 [id number]% Date/Time04/29 7: 7: 7:329 7: 13: 7:32 Range(35C - 36.8C ) (67 - 87 ) (15 - 18 ) (139 - 188 )/ (78 - 113 ) (109 - 113 ) (94% - 99% ) Physical Exam by System: Constitutional: Awake, alert, oriented, no acute distress Eyes: Extraocular muscles intact ENMT: Moist mucous membranes Head/Neck: Normocephalic, atraumatic Respiratory/Thorax: Bilateral equal breath sounds Cardiovascular: Regular rate and rhythm Gastrointestinal: Soft, nontender, nondistended Musculoskeletal: Moving all extremities with equal strength and ambulating on her own Extremities: No peripheral edema Neurological: Awake, alert, oriented Psychological: Cooperative Skin: Warm and dry Medications: Medications: Continuous Medications ------- No continuous medications are active Scheduled Medications ------- 1. Ascorbic Acid: 1000 mg Oral Daily 2. Aspirin Chewable: 81 mg Oral Daily 3. Carvedilol - PEDS: 3.125 mg Oral Daily 4. cefTRIAXone 1 gram/ Dextrose 5% IVPB Premixed Soln 50 mL: 50 mL IntraVenous Piggyback Every 24 Hours 5. Cyanocobalamin: 1000 microgram(s) Oral Daily 6. Enoxaparin SubCutaneous: 40 mg SubCutaneous Every 24 Hours 7. Insulin Lispro Mild Corrective Scale: unit(s) SubCutaneous 3 Times a Day Before Meals 8. Mirtazapine - PEDS: 15 mg Oral Every Night 9. Pantoprazole: 40 mg Oral Daily 10. Venlafaxine Extended Release: 150 mg Oral Daily 11. Venlafaxine Extended Release: 75 mg Oral Daily PRN Medications ------- 1. Acetaminophen: 650 mg Oral Every 4 Hours 2. Dextrose 50% in Water Injectable: 25 gram(s) IntraVenous Push Every 15 Minutes 3. Docusate: 100 mg Oral 2 Times a Day 4. Glucagon Injectable: 1 mg IntraMuscular Every 15 Minutes 5. Magnesium Hydroxide -Al Hydrox -Simethicone Oral Liquid: 30 mL Oral Every 6 Hours 6. Magnesium Hydroxide Oral Liquid CONCENTRATE: 10 mL Oral Every 24 Hours 7. Metoprolol Injectable: 5 mg IntraVenous Push Every 6 Hours 8. Ondansetron Injectable: 4 mg IntraVenous Push Every 4 Hours 9. Sodium Chloride 0.9% Injectable Flush: 10 mL IntraVenous Flush Every 8 Hours and as Needed Recent Lab Results: Results: I have reviewed these laboratory results: Glucose_POCT [Drawn 29-Apr-2022 07:25:00], Complete Blood Count + Differential [Drawn 29-Apr-2022 05:18:00], Complete Blood Count + Differential [Drawn 28-Apr-2022 11:03:00], Comprehensive Metabolic Panel [Drawn 29-Apr-2022 05:18:00], Sodium, Urine Spot [Drawn 29-Apr-2022 02:20:00], Thyroid Stimulating Hormone, Serum [Drawn 28-Apr-2022 15:52:00], Free Thyroxine, Serum [Drawn 28-Apr-2022 15:52:00], Basic Metabolic Panel [Drawn 28-Apr-2022 12:12:00], Basic Metabolic Panel [Drawn 28-Apr-2022 11:03:00], Urinalysis with Culture if Indicated [Drawn 28-Apr-2022 11:15:00], Urinalysis, Microscopic [Drawn 28-Apr-2022 11:15:00], Coronavirus 2019 by PCR [Drawn 28-Apr-2022 11:03:00], Lactate, Level [Drawn 28-Apr-2022 11:03:00]. 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 Normal [facility] Daily Progress Note-General Internal Medicineon 04-29-2022 Daily Progress Note-General Internal Medicine Consult Type: subsequent visit/care Service: General Internal Medicine Subjective Data: REINIER MENDOZA is a 52 year old Female who is Hospital Day # 2. Overnight Events: Patient had an uneventful night. Additional Information: 0800am: patient examined at bedside, no others present for exam. patient is lying in bed, denies any c/o at this time. Objective Data: Objective Information: T PRBPMAPSpO2 [id number]% Date/Time04/29 7: 7: 7: 7: 13: 7:32 Range(35C - 36.8C ) (67 - 87 ) (15 - 18 ) (139 - 188 )/ (78 - 113 ) (109 - 113 ) (94% - 99% ) Pain reported at 04/29 8:00: 0 = None Physical Exam Narrative: Physical Exam: General Appearance: AAO x , not in acute distress Skin: skin color, texture, turgor normal; no suspicious rashes or lesions Eyes : PERRL, EOM's intact, conjunctiva pink ENT: no oral thrush, no pharyngeal erythema or exudates Neck: no JVD, no lymphadenopathy Respiratory: lungs clear to auscultation; no wheezing, rhonchi, or crackles Heart: RRR without murmur, gallop, or rubs, no ectopy Abdomen: Nondistended, positive bowel sounds, soft, nontender Extremities: no edema Peripheral pulses: normal and present x 4 extremities Neuro: alert, coherent and conversant, no focal motor deficits Medication: Medications: Continuous Medications ------- No continuous medications are active Scheduled Medications ------- 1. Ascorbic Acid: 1000 mg Oral Daily 2. Aspirin Chewable: 81 mg Oral Daily 3. carBAMazepine: 200 mg Oral 2 Times a Day 4. Carvedilol - PEDS: 3.125 mg Oral Daily 5. Cyanocobalamin: 1000 microgram(s) Oral Daily 6. Enoxaparin SubCutaneous: 40 mg SubCutaneous Every 24 Hours 7. Insulin Lispro Mild Corrective Scale: unit(s) SubCutaneous 3 Times a Day Before Meals 8. Losartan: 25 mg Oral Daily 9. Mirtazapine - PEDS: 15 mg Oral Every Night 10. Pantoprazole: 40 mg Oral Daily 11. Venlafaxine Extended Release: 150 mg Oral Daily 12. Venlafaxine Extended Release: 75 mg Oral Daily PRN Medications ------- 1. Acetaminophen: 650 mg Oral Every 4 Hours 2. Dextrose 50% in Water Injectable: 25 gram(s) IntraVenous Push Every 15 Minutes 3. Docusate: 100 mg Oral 2 Times a Day 4. Glucagon Injectable: 1 mg IntraMuscular Every 15 Minutes 5. Magnesium Hydroxide -Al Hydrox -Simethicone Oral Liquid: 30 mL Oral Every 6 Hours 6. Magnesium Hydroxide Oral Liquid CONCENTRATE: 10 mL Oral Every 24 Hours 7. Metoprolol Injectable: 5 mg IntraVenous Push Every 6 Hours 8. Ondansetron Injectable: 4 mg IntraVenous Push Every 4 Hours 9. Sodium Chloride 0.9% Injectable Flush: 10 mL IntraVenous Flush Every 8 Hours and as Needed Recent Lab Results: Results: CBC: 04/29/2022 05:18 \\ Hgb / \\ 13.4 / WBC Plt 4.5 225 / Hct \\ / 38.9 \\ RBC: 4.34 MCV: 89 Neutrophil %: 44.1 BMP: 04/28/2022 12:12 NA+ Cl- BUN / 125 L 94 L 9 / ------- Glucose -- 257 H K+ HCO3- Creat \\ 3.6 23 0.37 L \\ Calcium : 7.8 L Anion Gap : 12 CMP: 04/29/2022 05:18 NA+ Cl- BUN / 132 L 97 L 9 / ------- Glucose -- 259 H K+ HCO3- Creat \\ 3.6 25 0.40 L \\ \\ T Bili / \\ 0.4 / AST x ---- x ALT 60 Hx ---- x 58 H / Alk P \\ / 58 \\ Calcium : 8.5 L Anion Gap : 14 Albumin : 3.7 T Protein : 6.4 Radiology Results: Results: Impression: No acute cardiopulmonary disease. Xray Chest 1 View [Apr 28 2022 11:10AM] Assessment and Plan: Code Status: Code StatusFull Code Assessment: REINIER MENDOZA is a 52 year old Female with Pmhx of htn, bipolar, thyroid goiter, TIAs , VADIM (wears CPAP at home) and DM presenting to ED on 04/28 for body aches, chills, fatigue, decreased PO intake, and generalized weakness x 3 days. In ed, labs significant for sodium 124/125, CL 94, creatinine 0.37, and calcium 7.8. UA was positive for trace leukocytes and positive for nitrites. CXR was negative for acute process. In ed, patient vital signs were 9.7 temp, 87 HR, 18 RR, 99& on RA, and BP 188/113. patient was given NS bolus one liter, and OT dose of ceftriaxone 1g. patient will be admitted to the medical service for UTI and hyponatremia. PLAN: nephrology is following, appreciate recs continue cardiac diet with fluid restriction 1500 losartan restarted per nephro recs, tegretol is also restarted, will not resume home HCTZ patient is taking the tegretol for Bipolar ordered AM labs, continue CPAP at HS urine culture prelim results show gram negative baclilli, will start on macrobid pain -continue tylenol cardiac prophylaxis -continue ASA HTN -continue coreg -IV metorpolol with parameters PRN -restarted on losartan UTI -continue rocephin day 2 consti (more content not included)... Normal [facility] Glucose [Mass/Vol] 243 mg/dL High 74 - [address] [facility] Comment on above: Performed By: #### G MATTHEW ####[address] [address] Glucose [Mass/Vol] 228 mg/dL High 74 - [address] [facility] Comment on above: Performed By: #### B MP #### [address] [address] Glucose [Mass/Vol] 264 mg/dL High 74 - [address] [place] [address] Comment on above: Performed By: #### B MP #### [address] [address] Glucose [Mass/Vol] 291 mg/dL High 74 - [address] [place] [address] Comment on above: Performed By: #### B MP #### [address] [address] Laboratory - Chemistry and C hemistry - challengeon 04-29-2022 Glucose [Mass/Vol] 243 mg/dL above high threshold 74 - 99 -Nephrolog [facility] Darryn 3 DO Work Phone: Glucose [Mass/Vol] 228 mg/dL above high threshold 74 - 99 -Nephrolog [facility] [place] 3 DO Work Phone: Glucose [Mass/Vol] 264 mg/dL above high threshold 74 - 99 [facility] 3 DO Work Phone: Glucose [Mass/Vol] 291 mg/dL above high threshold 74 - 99 -Nephrolog [place] [address] DO Work Phone: [phone] Albumin BCP dye [Mass/Vol] 3.7 g/dL 3.4 - 5.0 -Nephrolog [place] [address] DO Work Phone: [phone] ALP [Catalytic activity/Vol] 58 U/L 33 - 110 -Nephrolog [place] [address] DO Work Phone: [phone] ALT With P-5'-P [Catalytic activity/Vol] 58 U/L above high threshold 7 - 45 -Nephrolog [place] [address] DO Work Phone: [phone] Comment on above: Patients treated wit h Sulfasalazine may generate falsely decreased results for ALT. Anion gap [Moles/Vol] 14 mmol/L 10 - 20 -Nephrolog [place] [address] DO Work Phone: [phone] AST With P-5'-P [Catalytic activity/Vol] 60 U/L above high threshold 9 - 39 -Nephrolog [place] [address] DO Work Phone: [phone] Bilirubin [Mass/Vol] 0.4 mg/dL 0.0 - 1.2 -N ephrolog [place] [address] DO Work Phone: [phone] Calcium [Mass/Vol] 8.5 mg/dL below low threshold 8.6 - 10.3 -Nephrolog [place] [address] DO Work Phone: [phone] Chloride [Moles/Vol] 97 mmol/L below low threshold 98 - 107 -Nephrolog [place] [address] DO Work Phone: [phone] CO2 [Moles/Vol] 25 mmol/L 21 - 32 -Nephro log [place] [address] DO Work Phone: [phone] Creatinine [Mass/Vol] 0.40 mg/dL below low threshold See Below -Nephrolog [place] [address] DO Work Phone: [phone] Comment on above: Reference Range: 0.5 0 - 1.05 Glucose [Mass/Vol] 259 mg/dL above high threshold 74 - 99 [facility] [place] [address] DO Work Phone: [phone] Potassium [Moles/Vol] 3.6 mmol/L 3.5 - 5.3 [facility] [place] [address] DO Work Phone: [phone] Protein [Mass/Vol] 6.4 g/dL 6.4 - 8.2 -Nep hrolog [place] [address] DO Work Phone: [phone] Sodium [Moles/Vol] 132 mmol/L below low threshold 136 - 145 [facility] [place] [address] DO Work Phone: [phone] Urea nitrogen [Mass/Vol] 9 mg/dL 6 - 23 [facility] [place] [address] DO Work Phone: [phone] Creatinine (U) [Mass/Vol] 26.0 mg/dL See Below [facility] [address] DO Work Phone: Comment on above: Reference Range: 20. 0 - 320.0 Sodium (U) [Moles/Vol] 32 mmol/L See Below [place] [address] DO Work Phone: Comment on above: Reference Range: Not Established Sodium/Creatinine (U) [Ratio] 123 {mmol/g_Creat} See Below [facility] [place] [address] DO Work Phone: Comment on above: Reference Range: Not Established No Panel Informationon 04-29 >90 >90 [place] [address] DO Work Phone: Comment on above: CALCULATIONS OF NICK MATED GFR ARE PERFORMED USING THE 2020 CKD-EPI STUDY REFIT EQUATION WITHOUT THE RACE VARIABLE FOR THE IDMS-TRACEABLE CREATININE METHODS.https://jasn.asnjournals.org/content/early/ASN .9902787753 OSMOLALITY,URINE SPOTon 04-11 OSMOLALITY,URINE SPOT 168 mOsm/kg Low 200 - 1200 [facility] Comment on above: Performed By: #### O SMSP ####[id number] [place] [address] Osmolality, Urine Spoton Osmolality (U) [Osmolality] 168 mosm/kg below low threshold 200 - 1200 MP-Nephrolog [facility] 3 DO Work Phone: SODIUM, URINE SPOTon 022 CREATININE,URINE 26.0 mg/dL Normal 20.0 - 320.[address] [facility] Comment on above: Performed By: #### S ODS2 #### [address] [address] Sodium (U) [Moles/Vol] 32 mmol/L Normal Not Established [facility] Comment on above: Performed By: #### S ODS2 #### [address] [address] SODIUM/CREAT RATIO 123 mmol/g Creat Normal Not Established [facility] Comment on above: Performed By: #### S ODS2 #### [address] [address] TRIIODOTHYRONINEon TRIIODOTHYRONINE 91 ng/dL Normal 60 - 200 [facility] Comment on above: Performed By: #### B MP #### [address] [address] Triiodothyronine, Level (T3) on 04-29-2022 T3 [Mass/Vol] 91 ng/dL 60 - 200 MP-Nephrolo g [facility] 3 DO Work Phone: Admission Risk Screen - Adul ton 04-28-2022 Admission Risk Screen - Adult Allergies: Allergies: sulfa drugs: Unknown Patient Verification: New W ID Band Applied in my Departmentyes Patient Identity Verified Bypatient ID Band FULL Name, include Middle, spelling matches patient's ID used for verificationyes ID Band Matches Patient ID used for Verficationyes ID Band MRN Matches EMR MRNyes Visitor Restriction: Coronavirus Visitor Restriction: Reasonable restrictions to in-person visitors will be observed due to current coronavirus pandemic. Travel History: COVID-19 Screening Completedno exposure or symptoms(1) Travel or Exposure Past 30 DaysNO travel to International locations in the past 30 days Ebola AlertFor Ebola-like Symptoms: Isolate Patient and Notify Provider/Boxing And Pressing Supervisor For Contact: Notify Provider/Boxing And Pressing Supervisor Advance Directive: Advance Directive/DNRno Advance Directive Information Givenpatient/family declined Short Fall Screen: History of falling (immediate or previous)yes (25) Secondary Diagnosisyes (15) Intravenous Therapy/ Heparin/Saline Lockyes (20) Gait/Transferringweak (10) Ambulatory Aidscrutches/walker/cane (15) Mental Statusoriented to own ability (0) Score: Low risk (<25). Moderate risk (25-44). High risk (>44).85 Short InterventionsHIGH INTERVENTIONS *Low and Moderate Interventions Plus: * supervised toileting at all times Family Violence Screen: Are you or have you been threatened or abused physically, emotionally, or sexually by anyoneno Has anyone ever threatened to hurt your family or your petsno Does anyone try to keep you from having/contacting other friends or doing things outside your homeno Do you feel UNSAFE going back to the place where you are livingno Do you feel anyone has exploited or taken advantage of you financially or of your personal propertyno Clinical assessment: Are there any apparent signs of injuries/behaviors that could be related to abuse/neglectno Social Service Consult for abuse/neglect needed this visitno Functional Screen: Functional Screen: In the recent/past 2-4 weeks, patient or family have noticedno issues that require a speech/language consult at this time AM-PAC- Basic Mobility/Daily Activity: Patient baseline bedboundno Turning from your back to your side while in a flat bed without using bedrailsnone Moving from lying on your back to sitting on the side of a flat bed without using bedrailsnone Moving to and from bed to chair (including a wheelchair)none Standing up from a chair using your arms (e.g. wheelchair or bedside chair) none To walk in hospital rooma little Climbing 3-5 steps with railinga little Basic Mobility - Total Score22 Putting on and taking off regular lower body clothingnone Bathing (including washing, rinsing, drying)a little Putting on and taking off regular upper body clothinga little Toileting, which includes using toilet, bedpan or urinala little Taking care of personal grooming such as brushing teetha little Eating Mealsa little Daily Activity - Total Score19 Learning Assessment (Patient): Patient is Able to be Assessed for Learningyes Factors Influencing Readiness to Learnmotivation to learn Factors that Impact Ability to Learnnone Devices/Methods Used to Communicatenone, glasses Learning Preferencesverbal instruction; written material Cultural Considerationsnone Developmental Considerationsnone Worship Considerationsnone Learning Assessment (Other Learner): Other learner availableno Depression Screen: During the past month, have you often been bothered by feeling down, depressed or hopelessno During the past month, have you often had little interest or pleasure in doing thingsno Have you had any thoughts of harming anyone elseno (1) Romayor Suicide: Risk Screen Not Applicable/Able to Answerable to be screened In the Past Month: Have you wished you were or could go to sleep and not wake upno(1) In the Past Month: Have you had any actual thoughts of killing yourself no(1) Lifetime: Have you ever done, started to do, or prepared to do anything to end your lifeno Romayor Suicide Risknegative Adult Nutrition Screen: Have you recently lost weight without tryingyes; 14-23 lb Have you been eating poorly because of a decreased appetiteyes Malnutrition Screening Tool Score3 Malnutrition Screening Tool RiskMST = 2 or more At Risk. Eating poorly and/or recent weight loss Nutrition Consult needed this visitno Can Patient Participate in Room Serviceyes Patient requires Paper Dishes/Plastic Utensilsno Pain Screen: Pain Scalenumerical 0-10 Pain Scale Educationteaching provided Current Pain Level0 = None Acceptable Pain Level0 = None Expression of Pain (nonverbal)none Chronic Painno Spiritual Screen: Are there any cultural, spiritual, anabaptist practices/values/needs that are important for us to knowno CAGE: Is this an in (more content not included)... Normal [facility] BASIC METABOLIC PANELon 04-10 Anion gap [Moles/Vol] 12 mmol/L Normal - [facility] Comment on above: Performed By: #### B MP #### [address] [address] Calcium [Mass/Vol] 7.8 mg/dL Low 8.6 - 10.[address] [facility] Comment on above: Performed By: #### B MP #### [address] [address] Chloride [Moles/Vol] 94 mmol/L Low 98 - 107 [facility] Comment on above: Performed By: #### B MP #### [address] [address] Creatinine [Mass/Vol] 0.37 mg/dL Low 0.50 - 1.05 [facility] Comment on above: Performed By: #### B MP #### [address] [address] eGFR FEMALE >90 Normal >90 [facility] Comment on above: Result Comment: CALC ULATIONS OF ESTIMATED GFR ARE PERFORMED USING THE 2020 CKD-EPI STUDY REFIT EQUATION WITHOUT THE RACE VARIABLE FOR THE IDMS-TRACEABLE CREATININE METHODS. https://jasn.asnjournals.org/content//ASN.8718565 988 Performed By: #### B MP #### [address] [address] Glucose [Mass/Vol] 257 mg/dL High 74 - [address] [facility] Comment on above: Performed By: #### B MP #### [address] [address] HCO3 (Bld) [Moles/Vol] 23 mmol/L Normal 21 - 32 [facility] Comment on above: Performed By: #### B MP #### [address] [address] Potassium [Moles/Vol] 3.6 mmol/L Normal 3.5 - 5.3 [facility] Comment on above: Performed By: #### B MP #### [address] [address] Sodium [Moles/Vol] 125 mmol/L Low 136 - [address] [facility] Comment on above: Result Comment: willie qureshi with earlier result Performed By: #### B MP #### [address] [address] Urea nitrogen [Mass/Vol] 9 mg/dL Normal 6 - 23 [facility] Comment on above: Performed By: #### B MP #### [address] [address] Anion gap [Moles/Vol] 13 mmol/L Normal 10 - 20 [facility] Comment on above: Performed By: #### B MP #### [address] [address] Sodium [Moles/Vol] 124 mmol/L Low 136 - [address] [facility] Comment on above: Result Comment: repe ated and verified Performed By: #### B MP #### [address] [address] Calcium [Mass/Vol] 8.4 mg/dL Low 8.6 - 10.[address] [facility] Comment on above: Performed By: #### B MP #### [address] [address] Chloride [Moles/Vol] 90 mmol/L Low 98 - 107 [facility] Comment on above: Performed By: #### B MP #### [address] [address] Creatinine [Mass/Vol] 0.47 mg/dL Low 0.50 - 1.05 [facility] Comment on above: Performed By: #### B MP #### [address] [address] eGFR FEMALE >90 Normal >90 [facility] Comment on above: Result Comment: CALC ULATIONS OF ESTIMATED GFR ARE PERFORMED USING THE 2020 CKD-EPI STUDY REFIT EQUATION WITHOUT THE RACE VARIABLE FOR THE IDMS-TRACEABLE CREATININE METHODS. https://jasn.asnjournals.org/content/early/ASN.2120255 988 Performed By: #### B MP #### [address] [address] Glucose [Mass/Vol] 284 mg/dL High 74 - [address] [facility] Comment on above: Performed By: #### B MP #### [address] [address] HCO3 (Bld) [Moles/Vol] 25 mmol/L Normal 21 - 32 [facility] Comment on above: Performed By: #### B MP #### [address] [address] Potassium [Moles/Vol] 3.7 mmol/L Normal 3.5 - 5.3 [facility] Comment on above: Performed By: #### B MP #### [address] [address] Urea nitrogen [Mass/Vol] 10 mg/dL Normal 6 - 23 [facility] Comment on above: Performed By: #### B MP #### [address] [address] CBC AND DIFFERENTIALon 04-28 Basophils (Bld) [#/Vol] 0.00 10*3/uL Normal 0.00 - 0.10 [facility] Comment on above: Performed By: #### C BCDF ####[address] [address] Basophils/100 WBC (Bld) 0.3 % Normal 0.0 - 2.0 [facility] Comment on above: Performed By: #### C BCDF ####[address] [address] Eosinophils (Bld) [#/Vol] 0.10 10*3/uL Normal 0.00 - 0.70 [facility] Comment on above: Performed By: #### C BCDF ####[address] [address] Eosinophils/100 WBC (Bld) 1.7 % Normal 0.0 - 6.0 [facility] Comment on above: Performed By: #### C BCDF ####[address] [address] Erythrocyte distribution width (RBC) [Ratio] 13.0 % Normal 11.5 - 14.5 [facility] Comment on above: Performed By: #### C BCDF ####[address] [address] Hematocrit (Bld) [Volume fraction] 40.9 % Normal 36.0 - 46.0 [facility] Comment on above: Performed By: #### C BCDF ####[address] [address] Hemoglobin (Bld) [Mass/Vol] 14.0 g/dL Normal 12.0 - 16.0 [facility] Comment on above: Performed By: #### C BCDF ####[address] [address] Lymphocytes (Bld) [#/Vol] 1.20 10*3/uL Normal 1.20 - 4.80 [facility] Comment on above: Performed By: #### C BCDF ####[address] [address] Lymphocytes/100 WBC (Bld) 25.3 % Normal 13.0 - 44.0 [facility] Comment on above: Performed By: #### C BCDF ####[address] [address] MCHC (RBC) [Mass/Vol] 34.2 g/dL Normal 32.0 - 36.0 [facility] Comment on above: Performed By: #### C BCDF ####[address] [address] MCV (RBC) [Entitic vol] 88 fL Normal 80 - 100 [facility] Comment on above: Performed By: #### C BCDF ####[address] [address] Monocytes (Bld) [#/Vol] 0.40 10*3/uL Normal 0.10 - 1.00 [facility] Comment on above: Performed By: #### C BCDF ####[address] [address] Monocytes/100 WBC (Bld) 8.2 % Normal 2.0 - 10.0 [facility] Comment on above: Performed By: #### C BCDF ####[address] [address] Neutrophils (Bld) [#/Vol] 3.00 10*3/uL Normal 1.20 - 7.70 [facility] Comment on above: Result Comment: Perc ent differential counts (%) should be interpreted in the context of the absolute cell counts (cells/L). Performed By: #### C BCDF ####[address] [address] Neutrophils/100 WBC (Bld) 64.5 % Normal 40.0 - 80.0 [facility] Comment on above: Performed By: #### C BCDF ####[address] [address] Platelets (Bld) [#/Vol] 213 10*3/uL Normal 150 - 450 [facility] Comment on above: Performed By: #### C BCDF ####[address] [address] RBC 4.63 x10E12/L Normal 4.00 - 5.20 [facility] Comment on above: Performed By: #### C BCDF ####[address] [address] WBC (Bld) [#/Vol] 4.6 10*3/uL Normal 4.4 - 11.[address] [facility] Comment on above: Performed By: #### C BCDF ####[address] [address] CHEST 1 VIEWon 04-28-2022 CHEST 1 VIEW Patient Name: REINIER MENDOZA STUDY: CHEST 1 VIEW; 04/28/2022 10:37 am INDICATION: chills . COMPARISON: None. ACCESSION NUMBER(S): [id number] ORDERING CLINICIAN: ARNOLDO BILLS TECHNIQUE: FINDINGS: Heart is normal in size. There is no consolidation or pleural fluid. There is mild tortuosity of the aorta. The bones are unremarkable. COMPARISON OF FINDING: IMPRESSION: No acute cardiopulmonary disease. Electronically signed by: MARKUS CORNELIUS MD Normal [facility] CORONAVIRUS 2019 BY PCRon SARS-CoV-2 (COVID-19) RNA KATHERIN+probe Ql (Unsp spec) Not detected Normal Not Detected [facility] Comment on above: Result Comment: . This test has received FDA Emergency Use Authorization (EUA) and has been verified by [facility]. This test is only authorized for the duration of time that circumstances exist to justify the authorization of the emergency use of in vitro diagnostic tests for the detection of SARS-CoV-2 virus and/or diagnosis of COVID-19 infection under section 564(b)(1) of the Act, 21 U.S.C. 360bbb-3(b)(1), unless the authorization is terminated or revoked sooner. [facility] is certified under CLIA-88 as qualified to perform high complexity testing. Testing is performed in the [facility] laboratory located at [address] [place] [address]. SARS-CoV-2/Flu/RSV Multiplex Test: Fact sheet for providers: https://www.fda.gov/media/747327/download Fact sheet for patients: https://www.fda.gov/media/387050/download Performed By: #### C OV19 #### [place] [address] Lab Specimen Source Nasal, Nasopharyngeal Normal [facility] Comment on above: Performed By: #### C OV19 #### [place] [address] Complete Blood Count + Diffe rentialon 04-28-2022 Basophils/100 WBC (Bld) 0.3 % 0.0 - 2.0 [facility] [place] [address] DO Work Phone: Erythrocyte distribution width (RBC) [Ratio] 13.0 % See Below [place] [address] DO Work Phone: Comment on above: Reference Range: 11. 5 - 14.5 Hematocrit (Bld) [Volume fraction] 40.9 % See Below [place] [address] DO Work Phone: Comment on above: Reference Range: 36. 0 - 46.0 Hemoglobin (Bld) [Mass/Vol] 14.0 g/dL See Below [facility] [address] DO Work Phone: Comment on above: Reference Range: 12. 0 - 16.0 Lymphocytes/100 WBC (Bld) 25.3 % See Below [facility] [place] [address] DO Work Phone: Comment on above: Reference Range: 13. 0 - 44.0 MCHC (RBC) [Mass/Vol] 34.2 g/dL See Below [facility] [place] [address] DO Work Phone: Comment on above: Reference Range: 32. 0 - 36.0 MCV (RBC) [Entitic vol] 88 fL 80 - 100 [place] [address] DO Work Phone: Monocytes/100 WBC (Bld) 8.2 % 2.0 - 10.0 [place] [address] DO Work Phone: Neutrophils/100 WBC (Bld) 64.5 % See Below [place] [address] DO Work Phone: Comment on above: Reference Range: 40. 0 - 80.0 Platelets (Bld) [#/Vol] 213 10*3/uL 150 - 450 [facility] [address] DO Work Phone: [phone] RBC (Bld) [#/Vol] 4.63 {x10E12/L} See Below [facility] [address] DO Work Phone: Comment on above: Reference Range: 4.0 0 - 5.20 WBC (Bld) [#/Vol] 4.6 10*3/uL 4.4 - 11.3 -Nep [facility]rolog [place] [address] DO Work Phone: Complete Blood Count + Differential 0.00 {x10E9/L} See Below [place] [address] DO Work Phone: Comment on above: Reference Range: 0.0 0 - 0.10 Complete Blood Count + Differential 0.10 {x10E9/L} See Below [place] [address] DO Work Phone: Comment on above: Reference Range: 0.0 0 - 0.70 Complete Blood Count + Differential 0.40 {x10E9/L} See Below [place] [address] DO Work Phone: Comment on above: Reference Range: 0.1 0 - 1.00 Complete Blood Count + Differential 1.20 {x10E9/L} See Below [place] [address] DO Work Phone: Comment on above: Reference Range: 1.2 0 - 4.80 Complete Blood Count + Differential 3.00 {x10E9/L} See Below [place] [address] DO Work Phone: Comment on above: Reference Range: 1.2 0 - 7.70 Percent differential counts (%) should be interpreted in the context of the absolute cell counts (cells/L). Complete Blood Count + Differential 1.7 % 0.0 - 6.0 [place] [address] DO Work Phone: Coronavirus 2019 RNA by PCR, Symptomaticon 04-28-2022 Coronavirus 2019 RNA by PCR, Symptomatic Not detected Normal See Below [place] [address] DO Work Phone: Comment on above: SOURCE: Nasal, Nasop haryngealReference Range: Not Detected.This test has received FDA Emergency Use Authorization (EUA) and has been verified by [facility]. This test is only authorized for the duration of time that circumstances exist to justify the authorization of the emergency use of in vitro diagnostic tests for the detection of SARS-CoV-2 virus and/or diagnosis of COVID-19 infection under section 564(b)(1) of the Act, 21 U.S.C. 360bbb-3(b)(1), unless the authorization is terminated or revoked sooner. [facility] is certified under CLIA-88 as qualified to perform high complexity testing. Testing is performed in the [facility] laboratory located at [address] [place] [address].SARS-CoV-2/Flu/RSV Multiplex Test: Fact sheet for providers: https://www.fda.gov/media/171368/downloadFact sheet for patients: https://www.fda.gov/media/744283/download Covid 19 Resultson 2 SARS-CoV-2 (COVID-19) RNA KATHERIN+probe Ql (Unsp spec) NEGATIVE COVID-19 Test Coronaviruses are common world-wide and are the cause of many common colds. SARS-COV2 is a new coronavirus that began circulating worldwide in 2019 so we are calling it COVID-19. It has been estimated that four out of five patients with COVID-19 will recover at home without the need for medical attention. Symptoms of COVID-19 may include cough, fever, shortness of breath, loss of taste or smell and other flu-like symptoms including chills, sore muscles, sore throat, and headache. Severe illness is more common in older people and people with other health problems such as high blood pressure, obesity, and immune system problems. If the test is positive, you have COVID-19. You will be contacted by the ordering physicians office and instructed to remain on home isolation, in accordance with CDC guidelines. You may also be contacted by the [facility] to see if any of your close contacts may have been exposed to the virus and need to quarantine. If the test is negative, you likely do not have COVID-19 at this time, but you still may have a different illness that can spread to other people (like Influenza, or the Flu) and could still be at risk for getting COVID-19. We recommend that you stay away from other people to limit the spread of illness until your symptoms are improving and you are fever-free for 24 hours without the use of fever lowering medications such as acetaminophen or ibuprofen. No test is 100% accurate so if you are still concerned you may have COVID-19, talk to your doctor about the need to continue to stay away from others. Medicines Unless your provider told you not to use the following: Acetaminophen (Tylenol and others) is generally safe. Anti-inflammatory medications, such as Ibuprofen (Advil or Motrin) or Naproxen (Aleve) can also be used. Aqem-zfw-laainnm cough and cold medicines can be used according to the instructions on the package. Some kohc-xlk-njrrjqu medicines also contain acetaminophen. Make sure you are not taking more than your recommended dose. For those not hospitalized, there is no specific treatment available for this illness. Antibiotics do not treat Coronaviruses. Follow-Up Follow up with your doctor by scheduling a virtual visit or consider follow-up at one of our urgent care fever clinics. If you are having difficulty breathing, or are very weak and having difficulty standing, this is a medical emergency. Call 911 or have someone take you to the nearest emergency room immediately. If possible, wear a facemask. Additional guidance from the CDC for patients who tested POSITIVE for COVID-19 How to isolate: Isolate yourself in a specific room at home and limit your contact with others. Use a separate bathroom from other members of the household, when possible. Leave home only to get essential medical care. Do not go to work, school or public areas. Avoid using public transportation, ride-sharing, or taxis. Restrict contact with pets and other animals. If you must care for your pet or be around animals while you are sick, wash your hands before and after your interaction and wear a facemask. Make sure that shared spaces in the home have good airflow, such as by an air conditioner or an opened window, weather permitting. Personal Hygiene Procedures: Wear a face mask when in the same room as other people or pets. If a face mask interferes with your breathing, others should wear a mask when sharing space with you. Frequent hand-washing: wash your hands with soap and water for at least 20 seconds. If soap and water are not available, use alcohol-based hand merchandise buyer. Avoid touching your eyes, nose, and mouth with unwashed hands. Household Hygiene Procedures: Avoid sharing personal household items such as dishes, glassware, cups, eating utensils, towels or bedding with other people or pets in your home. After use, these items should be washed with soap and hot water. Disinfect all high-touch surfaces every day with antibacterial cleaning solutions such as Lysol wipes, bleach, cleansers, etc. High-touch surfaces include tabletops, doorknobs, bathroom fixtures, toilets, phones, keyboards, tablets and bedside tables. Immediately clean any surfaces that may have blood, poop or body fluids on them, using antibacterial cleaning solutions such as Lysol wipes, bleach, cleansers, etc. If clothing or bedding come into contact with blood, poop or body fluids, they should be washed immediately. Follow the directions on the laundry detergent and clothing labels but hot water is recommended when possible. Stopping home isolation precautions: If possible, consult your doctor before stopping home isolation precautions. According to the CDC, you can discontinue home isolation precautions when you have met both of these criteria: Your fever and respiratory symptoms have been gone for 24 agueda (more content not included)... Normal [facility] Cult, Urineon 04-28-2022 Bacteria identified Cx Nom (U) Abnormal MP-Nephrolog y-[facility] 3 DO Work Phone: GLUCOSE-POCTon 04-28-2022 Glucose [Mass/Vol] 244 mg/dL High - [address] [place] [address] Comment on above: Performed By: #### G MATTHEW ####[address] [address] Glucose [Mass/Vol] 297 mg/dL High [address] [place] [address] Comment on above: Performed By: #### G MATTHEW ####[address] [address] Glucose [Mass/Vol] 217 mg/dL High 74 - [address] [place] [address] Comment on above: Performed By: #### G MATTHEW ####[address] [address] LACTATEon 04-28-2022 Lactate [Moles/Vol] 1.5 mmol/L Normal 0.4 - 2.0 [facility] Comment on above: Result Comment: Carole puncture immediately after or during the administration of Metamizole may lead to falsely low results. Testing should be performed immediately prior to Metamizole dosing. Performed By: #### B #### [facility] [address] [place] [address] Laboratory - Chemistry and C hemistry - challengeon 04-28-2022 Glucose [Mass/Vol] 244 mg/dL above high threshold 74 - 99 -Nephrolog [facility] 3 DO Work Phone: Glucose [Mass/Vol] 297 mg/dL above high threshold 74 - 99 [facility] Work Phone: Glucose [Mass/Vol] 217 mg/dL above high threshold 74 - 99 -[facility] [place] [address] DO Work Phone: Anion gap [Moles/Vol] 12 mmol/L 10 - 20 -[facility] [place] [address] DO Work Phone: Calcium [Mass/Vol] 7.8 mg/dL below low threshold 8.6 - 10.3 -[facility] [place] [address] DO Work Phone: Chloride [Moles/Vol] 94 mmol/L below low threshold 98 - 107 -Nephrolog [facility] 3 DO Work Phone: [phone] CO2 [Moles/Vol] 23 mmol/L 21 - 32 -Nephro log [facility] 3 DO Work Phone: Creatinine [Mass/Vol] 0.37 mg/dL below low threshold See Below -Ne[place]rolog [place] [address] DO Work Phone: Comment on above: Reference Range: 0.5 0 - 1.05 Glucose [Mass/Vol] 257 mg/dL above high threshold 74 - 99 -Ne[facility]rolog [place] [address] DO Work Phone: [phone] Potassium [Moles/Vol] 3.6 mmol/L 3.5 - 5.3 -[facility] [place] [address] DO Work Phone: [phone] Sodium [Moles/Vol] 125 mmol/L below low threshold 136 - 145 -[facility] [place] [address] DO Work Phone: [phone] Comment on above: verified with juanis padilla result Urea nitrogen [Mass/Vol] 9 mg/dL 6 - -[facility] [place] [address] DO Work Phone: [phone] Anion gap [Moles/Vol] 13 mmol/L 10 - 20 -[facility] [place] [address] DO Work Phone: [phone] Calcium [Mass/Vol] 8.4 mg/dL below low threshold 8.6 - 10.3 -[facility] [place] [address] DO Work Phone: [phone] Chloride [Moles/Vol] 90 mmol/L below low threshold 98 - 107 -[facility] [place] [address] DO Work Phone: [phone] CO2 [Moles/Vol] 25 mmol/L 21 - 32 -Nephro log [place] [address] DO Work Phone: [phone] Creatinine [Mass/Vol] 0.47 mg/dL below low threshold See Below [facility] [place] [address] [place] Work Phone: [phone] Comment on above: Reference Range: 0.5 0 - 1.05 Glucose [Mass/Vol] 284 mg/dL above high threshold 74 - 99 -Nephrolog [facility] 3 DO Work Phone: [phone] Potassium [Moles/Vol] 3.7 mmol/L 3.5 - 5.3 -Nephrolog [facility] 3 DO Work Phone: [phone] Sodium [Moles/Vol] 124 mmol/L below low threshold 136 - 145 -[facility] [place] [address] DO Work Phone: [phone] Comment on above: repeated and verifie d Urea nitrogen [Mass/Vol] 10 mg/dL 6 - MP-Nephrolog [facility] 3 DO Work Phone: Lactate, Levelon 04-28-2022 Lactate [Moles/Vol] 1.5 mmol/L 0.4 - 2.0 MP-Ne phrolog [facility] 3 DO Work Phone: Comment on above: Venipuncture immedia tely after or during the administration of Metamizole may lead to falsely low results. Testing should be performed immediately prior to Metamizole dosing. No Panel Informationon 04-28 >90 >90 -[facility] [place] [address] DO Work Phone: Comment on above: CALCULATIONS OF NICK MATED GFR ARE PERFORMED USING THE 2020 CKD-EPI STUDY REFIT EQUATION WITHOUT THE RACE VARIABLE FOR THE IDMS-TRACEABLE CREATININE METHODS.https://jasn.asnjournals.org/content/early/ASN .5896553692 >90 >90 -Ne[facility]rolog [place] [address] DO Work Phone: Comment on above: CALCULATIONS OF NICK MATED GFR ARE PERFORMED USING THE 2020 CKD-EPI STUDY REFIT EQUATION WITHOUT THE RACE VARIABLE FOR THE IDMS-TRACEABLE CREATININE METHODS.https://jasn.asnjournals.org/content//ASN .9886722242 Order Reconciliationon 04-28 Order Reconciliation Page 1 Admission Reconciliation Document Reconciliation Type: Admission requested on behalf of Katerina Akbar (Advanced Practice Nurse) done by Katerina Akbar (EARLY CHILDHOOD LEAD TEACHER-SYSTEMS SUPPORT ENGINEER) Admission - Reconciliation: 28-Apr-2022 13:52 by: Katerina Akbar (EARLY CHILDHOOD LEAD TEACHER-SYSTEMS SUPPORT ENGINEER) Home MedicationsEnteredLast Dose TakenReconciled with current Order Reconciliation Comment/ Additional Information aspirin 81 mg oral tablet 1 tab(s) orally once a [id number] 8:00 AM Aspirin TabletDOSE = 81 mg Oral Dailyaspirin 81 mg oral tablet continued as the inpatient order Aspirin CARBAMAZEPINE 200 MG TABLET 2 tab(s) orally 2 times a [id number]-Apr-2022 8:00 AM Reviewed and Held CARVEDILOL 3.125 MG TABLET 1 tab(s) orally once a [id number] 8:00 AM Carvedilol - PEDS Tablet (COREG)DOSE = 3.125 mg Oral Daily CARVEDILOL 3.125 MG TABLET continued as the inpatient order Carvedilol - PEDS Centrum Silver oral tablet 1 tab(s) orally once a [id number] 8:00 AM Reviewed and Held HYDROCHLOROTHIAZIDE 25 MG TAB 1 tab(s) orally once a [id number]-Apr-2022 8:00 AM Reviewed and Held ibuprofen 200 mg oral tablet 3 tab(s) orally every 6 hours, As Needed 4:00 AM Reviewed and Held LOSARTAN POTASSIUM 100 MG TAB 1 tab(s) orally once a [id number]-Apr-2022 8:00 AM Reviewed and Held magnesium gluconate 500 mg oral tablet 1 tab(s) orally once a day (at bedtime) PM Reviewed and Held METFORMIN HCL ER 500 MG TABLET 2 tab(s) orally 2 times a [id number]-Apr-2022 8:00 AM Reviewed and Held MIRTAZAPINE 15 MG TABLET 1 tab(s) orally once a day (at bedtime)28-Apr-2022 PM Mirtazapine - PEDS Tablet (REMERON)DOSE = 15 mg Oral Every NightCa mg/DOSE x 1 = 15 mg/Dose (Daily Total is 15 mg)MIRTAZAPINE 15 MG TABLET continued as the inpatient order Mirtazapine - PEDS Turmeric 500 mg oral capsule 2 cap(s) orally once a [id number] 8:00 AM Reviewed and Held venlafaxine 75 mg oral capsule, extended release 1 cap(s) orally once a day with 150mg [id number] 8:00 AM Venlafaxine Extended Release Capsule, Extended Release (EFFEXOR XR)DOSE = 75 mg Oral Dailyvenlafaxine 75 mg oral capsule, extended release continued as the inpatient order Venlafaxine Extended Release VENLAFAXINE HCL ER 150 MG CAP 1 cap(s) orally once a day with 75mg dose 8:00 AM Venlafaxine Extended Release Capsule, Extended Release (EFFEXOR XR)DOSE = 150 mg Oral DailyVENLAFAXINE HCL ER 150 MG CAP continued as the inpatient order Venlafaxine Extended Release Vitamin B-12 1000 mcg oral tablet 1 tab(s) orally once a [id number]-Apr-2022 8:00 AM Cyanocobalamin TabletDOSE = 1,000 microgram(s) Oral Daily Vitamin B-12 1000 mcg oral tablet continued as the inpatient order Cyanocobalamin Vitamin C 1000 mg oral tablet 1 tab(s) orally once a [id number]-2022 8:00 AM Ascorbic Acid Tablet (VITAMIN C)DOSE = 1,000 mg Oral DailyVitamin C 1000 mg oral tablet continued as the inpatient order Ascorbic Acid Vitamin D3 50 mcg (2000 intl units) oral tablet 1 tab(s) orally 2 times a day 8:00 AM Reviewed and Held Zinc 140 mg (as elemental zinc 50 mg) oral tablet 1 tab(s) orally once a day 8:00 AM Reviewed and Held Normal [facility] Patient Profile - Adult v2on 04-28-2022 Patient Profile - Adult v2 Profile: Initial Info: How to be AddressedDana Spoken Language PreferredEnglish Stated Reason for Admissionweakness Wants Family/Rep Notified of Admissionyes, primary contact Notify PCPnotify PCP Informed of Patient Visiting Rightsyes Arrived Fromemergency department Patient Belongingsremains with patient Patient Belongings Remaining with Patientpurse/wallet; clothing; cell phone/electronics; vision aids Medications Brought to Hospitalno General Health: Weight in kg97.7 kilogram(s)(1) Weight in jns097.3 pound(s) Weight Methodstated Scale Typebed Height in cm167.5 centimeter(s)(1) Height in feet5 feet Height in inches5.98 inch(es) Height Methodstated BMI (kg/m2)34.822 square meter RSP Based Care: How would you like to participate in your careactive What is the number one concern for you during this hospitalizationget better, gain strength What is the most important thing we can do to support you during this hospitalizationavailable Is there anything we need to know to best care for youpatient has sleep apnea Substance: Smoking Statusmoderate user (uses 11-30 cig/day, OR 0.5-1.5 ppd, OR 2-3 cans/pouches loose leaf tobacco per week, OR 0.5-1.5 vape pods per day) Tobacco Cessation Education (provide if tobacco use within the last 12 mos) patient declined Alcohol Useoccasionally Drug Usedenies Health Mgmt: Symptoms/Conditions Managed at Homeendocrine; musculoskeletal; neurological; respiratory; behavioral health; cardiovascular Are You no (2) Behavioral Health Symptoms/Conditionsbipola r affective disorder Behavioral Management Strategiesmedication therapy Behavioral Health Managementmanaged Cardiovascular Symptoms/Conditionshypert ension Cardiovascular Management Strategiesmedication therapy Cardiovascular Managementmanaged Endocrine Symptoms/Conditionsdiabet es; thyroid disease Endocrine Management Strategiesmedication therapy Endocrine Managementnot managed Musculoskeletal Managementmanaged Musculoskeletal Symptoms/Conditions Commentback surgery 2006 Neurological Managementmanaged Neurological Symptoms/Conditions CommentTIA, small vessel disease Respiratory Symptoms/Conditionssleep disordered breathing Respiratory Management StrategiesCPAP Respiratory Managementmanaged Relationship/Environ: Resource/Environmental Concernsreliable transportation Transportation Concernsrides, unreliable from others Primary Source of Support/Comfortchild(ronald) Lives Withalone Living Arrangementshouse Services Anticipated at Transitionnone Anticipated Transition Tohome Significant IndicatorsComplete Information Review: Allergies, Home Meds and Significant Events have been Reviewed and Verified with Patient/Familyyes ALLERGY, INTOLERANCE, ADVERSE EVENT: Allergies: sulfa drugs: Drug Category, Unknown, Active Electronic Signatures: Thalia Myers (SUPV) (Signed 28-Apr-2022 14:36) Authored: Initial Info, General Health, RSP Based Care, Substance, Health Mgmt, Relationship/Environ, Additional Information Last Updated: 28-Apr-2022 14:36 by Thalia Myers (SUPV) References: 1. Data Referenced From 1. Vital Signs 28-Apr-2022 10:22 2. Data Referenced From History and Physical 28-Apr-2022 13:48 Normal [facility] Provider Note - ED v3on 09-1 Provider Note - ED v3 Provider Note: Chart Review: ED NOTES ED NOTES: HPI: Patient presents the ER today complaining of 3 days of multiple vague complaints. She states she feels achy has chills but denies any nausea vomiting fever cough congestion urinary burning or frequency. She states that she knows that she is going septic. ROS: All systems are negative other than as noted in HPI. Physical Exam I have reviewed the triage vital signs. Const: Well nourished, well developed, appears stated age, no acute distress Eyes: PERRL, EOM intact, no conjunctival injection, vision grossly normal HENT: Neck supple without meningismus , Moist mucous membranes, no pharyengeal swelling or exudate CV: Regular rate and rhythm, Warm, well-perfused extremities. Chest non tender RESP: Lungs clear bilaterally, Unlabored respiratory effort GI: soft, non-tender, non-distended, no masses : MSK: No gross deformities appreciated Back: Non tender, no pain with ROM Skin: Warm, dry. No rashes Neuro: Alert and oriented x4, GCS 15 , photographic supervisor II-XII grossly intact. Sensation and motor function of extremities grossly intact. Psych: Appropriate mood and affect. I have reviewed and confirmed nurses/medics notes for patient past, social and family history. Portions of this note were dictated by speech recognition. An attempt at proof reading was made to minimize errors. 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 HISTORY OF PRESENTING ILLNESS REINIER is a 52 year old Female and was seen by me at 28-Apr-2022 10:19 for a chief complaint of fatigue and weakness (Pt. ambulated to ED today with c/o fatigue and weakness and chills. Symptoms began about 3 days ago. denies N/V . some loose stools. pt. states she is afraid she is septic.)(1). Triage Information: Most recent Vital Sign Value Date Temp (F): 95.7 04-28-2022 10:22 Temp (C): 35.3 04-28-2022 10:22 Heart Rate (beats/min): 87 04-28-2022 10:22 Respirations (breaths/min): 18 04-28-2022 10:22 SpO2 (%): 99 04-28-2022 10:22 BP Systolic (mm Hg): 188 04-28-2022 10:22 BP Diastolic (mm Hg): 113 04-28-2022 10:22 PAST MEDICAL HISTORY ALLERGIES/INTOLERANCES: Allergy Allergen: sulfa drugs Type: Drug Category Reaction: Unknown HEALTH HISTORY: No documented data. OUTPATIENT MEDICATIONS: Home Medications Review Status for Reconciliation: Complete Med Status: Patient Currently Takes Medications Drug Name: CARBAMAZEPINE 200 MG TABLET Instructions: 2 tab(s) orally 2 times a day Drug Name: CARVEDILOL 3.125 MG TABLET Instructions: 1 tab(s) orally once a day Drug Name: HYDROCHLOROTHIAZIDE 25 MG TAB Instructions: 1 tab(s) orally once a day Drug Name: LOSARTAN POTASSIUM 100 MG TAB Instructions: 1 tab(s) orally once a day Drug Name: METFORMIN HCL ER 500 MG TABLET Instructions: 2 tab(s) orally 2 times a day Drug Name: MIRTAZAPINE 15 MG TABLET Instructions: 1 tab(s) orally once a day (at bedtime) Drug Name: VENLAFAXINE HCL ER 150 MG CAP Instructions: 1 cap(s) orally once a day SIGNIFICANT EVENTS: No documented data. CRITICAL CARE RESULTS: Recent Lab Results: I have reviewed these laboratory results: Urinalysis with Culture if Indicated 28-Apr-2022 11:15:00 ResultValue Color, Urine YELLOW Reference Range: STRAW,YELLOW Appearance, Urine CLEAR Specific [place], Urine 1.015 pH, Urine 7.0 Protein, Urine 30 (1+) A Glucose, Urine 150 (2+) A Blood, Urine NEGATIVE Ketones, Urine NEGATIVE Bilirubin, Urine NEGATIVE Urobilinogen, Urine <2.0 Nitrite, Urine POSITIVE A Leukocyte Esterase, Urine TRACE A Urinalysis, Microscopic 28-Apr-2022 11:15:00 ResultValue White Cells 9 A Red Blood Cells 2 Epithelial Cells, Squamous 3 Bacteria, Urine 4+ A Complete Blood Count + Differential 28-Apr-2022 11:03:00 ResultValue White Blood Cell Count 4.6 Red Blood Cell Count 4.63 HGB 14.0 HCT 40.9 MCV 88 MCHC 34.2 PLT 213 RDW-CV 13.0 Neutrophil % 64.5 Lymphocyte % 25.3 Monocyte % 8.2 Eosinophil % 1.7 Basophil % 0.3 Neutrophil Count 3.00 Lymphocyte Count 1.20 Monocyte Count 0.40 Eosinophil Count 0.10 Basophil Count 0.00 Basic Metabolic Panel 28-Apr-2022 11:03:00 ResultValue Glucose, Serum 284 H NA 124 L K 3.7 CL 90 L Bicarbonate, Serum 25 Anion Gap, Serum 13 BUN 10 CREAT 0.47 L GFR Female >90 Calcium, Serum 8.4 L Coronavirus 2019 by PCR 28-Apr-2022 11:03:00 ResultValue Fluid Source Nasal, Nasopharyngeal Coronavirus 2019,PCR NOT DETECTED Reference Range: Not Detected .This test has received FDA Emergency Use Authorization (EUA) and has been verified by [facility]. This test is only authorized for the duration of time that circum Lactate, Level 28-Apr-2022 11:03:00 ResultValue Lactate, Level 1.5 Radiology Results: Impression: No acute cardiopulmonary disease. Xray Chest 1 View [Apr 28 (more content not included)... Normal [facility] Radiologyon 04-28-2022 XR Chest Single view Normal [facility] Work Phone: T4 - Free Thyroxine, Serumon 04-28-2022 Free T4 [Mass/Vol] 0.94 ng/dL See Below [facility] Work Phone: Comment on above: Reference Range: 0.6 1 - 1.12 Thyroxine Free testing is performed using different testing methodology at [facility] than at other [facility]. Direct result comparisons should only be made within the same method.. Biotin can cause falsely elevated free T4 results. Patients taking a Biotin dose of up to 10 mg/day should refrain from taking Biotin for 24 hours before sample collection. Patient taking a Biotin dose of >10 mg/day should consult with their physician or the laboratory before the blood draw. THYROXINE,FREEon 04-28-2022 THYROXINE,FREE 0.94 ng/dL Normal 0.61 - 1.12 [facility] Comment on above: Result Comment: Thyr oxine Free testing is performed using different testing methodology at [facility] than at other [facility]. Direct result comparisons should only be made within the same method. . Biotin can cause falsely elevated free T4 results. Patients taking a Biotin dose of up to 10 mg/day should refrain from taking Biotin for 24 hours before sample collection. Patient taking a Biotin dose of >10 mg/day should consult with their physician or the laboratory before the blood draw. Performed By: #### B MP #### [place] [id number] TSHon 04-28-2022 TSH Qn 0.82 m[IU]/L Normal 0.44 - 3.98 [facility] Comment on above: Result Comment: TSH testing is performed using different testing methodology at [facility] than at other [facility]. Direct result comparisons should only be made within the same method. Performed By: #### T SH2 #### [place] [address] TSH - Thyroid Stimulating Ho rmone, Serumon 04-28-2022 TSH Qn 0.82 m[IU]/L See Below MP-Nephrolog [facility] Darryn 3 DO Work Phone: Comment on above: Reference Range: 0.4 4 - 3.98 TSH testing is performed using different testing methodology at [facility] than at other [facility]. Direct result comparisons should only be made within the same method. UA MICROSCOPICon 04-28-2022 BACTERIA 4+ /HPF Abnormal [facility] Comment on above: Performed By: #### U AMIC #### [place] [id number] RBC 2 /HPF Normal 0-5 [facility] Comment on above: Performed By: #### U AMIC #### [place] [id number] SQUAMOUS EPITH. CELLS 3 /HPF Normal [facility] Comment on above: Performed By: #### U AMIC #### [address] [address] WBC 9 /HPF Abnormal 0-5 [facility] Comment on above: Performed By: #### U AMIC #### [address] [address] URINALYSIS WITH CULTURE IF I NDICATEDon 04-28-2022 Appearance (U) CLEAR Normal CLEAR [facility] Comment on above: Performed By: #### U ARFX #### [place] [address] Bilirubin Ql (U) Negative Normal NEGATIVE [facility] Comment on above: Performed By: #### U ARFX #### [place] [address] Color (U) YELLOW Normal STRAW,YELLOW [facility] Comment on above: Performed By: #### U ARFX #### [place] [address] Glucose Ql (U) 150 (2+) Abnormal NEGATIVE [facility] Comment on above: Performed By: #### U ARFX #### [place] [address] Hemoglobin Ql (U) Negative Normal NEGATIVE [facility] Comment on above: Performed By: #### U ARFX #### [place] [address] Ketones Ql (U) Negative Normal NEGATIVE [facility] Comment on above: Performed By: #### U ARFX #### [place] [address] Leukocyte esterase Test strip Ql (U) TRACE Abnormal NEGATIVE [facility] Comment on above: Performed By: #### U ARFX #### [place] [address] Nitrite Ql (U) Positive Abnormal NEGATIVE [facility] Comment on above: Performed By: #### U ARFX #### [place] [address] pH (U) 7.0 [pH] Normal 5.0 - 8.0 [facility] Comment on above: Performed By: #### U ARFX #### [place] [address] Protein Ql (U) 30 (1+) Abnormal NEGATIVE [facility] Comment on above: Performed By: #### U ARFX #### [place] [address] Specific gravity (U) [Rel density] 1.015 Normal 1.005 - 1.035 [facility] Comment on above: Performed By: #### U ARFX #### [facility] [address] [place] [address] Urobilinogen (U) [Mass/Vol] mg/dL Normal 0.0 - 1.9 [facility] Comment on above: Performed By: #### U ARFX #### [facility] [address] [place] [address] Color (U) YELLOW See Below MP-Nephrolog [place] [address] DO Work Phone: Comment on above: Reference Range: STR AW,YELLOW Glucose Ql (U) 150 (2+) Abnormal NEGATIVE MP-Nephrol og [place] [address] DO Work Phone: Ketones Ql (U) Negative NEGATIVE MP-Nephrol [facility] [place] [address] DO Work Phone: Leukocyte esterase Test strip Ql (U) TRACE Abnormal NEGATIVE -Ne[facility]rolog [place] [address] DO Work Phone: pH (U) 7.0 [pH] 5.0 - 8.0 MP-Nephrolog [place] [address] DO Work Phone: Protein (U) [Mass/Vol] 30 (1+) Abnormal NEGATIVE -Ne[facility]rolog [place] [address] DO Work Phone: RBC (U) [#/Vol] Negative NEGATIVE MP-Nephro log [place] [address] DO Work Phone: Specific gravity (U) [Rel density] 1.015 1 See Below MP-Nephrolog [place] [address] DO Work Phone: Comment on above: Reference Range: 1.0 05 - 1.035 URINALYSIS WITH CULTURE IF INDICATED Positive Abnormal NEGATIVE MP-Nephrolo g [place] [address] DO Work Phone: URINALYSIS WITH CULTURE IF INDICATED <2.0 0.0 - 1.9 MP-Nephrolo g [place] [address] DO Work Phone: URINALYSIS WITH CULTURE IF INDICATED Negative NEGATIVE MP-Nephrolo g [place] [address] DO Work Phone: URINALYSIS WITH CULTURE IF INDICATED CLEAR CLEAR -Nephrolo g [place] [address] DO Work Phone: URINE CULTURE,BACTERIALon URINE CULTURE,BACTERIAL PATIENT: REINIER MENDOZA LOCATION: [address]#: [id number] : 68 AGE: SEX: F ORDERED BY: ARNOLDO BILLS SOURCE: URINE COLLECTED: 04/28/22 11:15 ANTIBIOTICS AT [facility].: RECEIVED : 04/28/22 18:03 SITE: [facility] URINE CULTURE,BACTERIAL FINAL 04/30/22 14:26 ISOLATE1 : Escherichia coli >100,000 CFU/ML Organism E coli Antibiotic BP INTRP Ampicillin S Ceftriaxone S Cefazolin S Ciprofloxacin S Nitrofurantoin S Gentamicin S Levofloxacin S Piperc/Tazobact N/R Trimeth/Sulfa S ___ S=SUSCEPTIBLE I=INTERMEDIATE R=RESISTANT SDD=SUSCEPTIBLE DOSE DEPENDENT NS=NONSUSCEPTIBLE X=REPORTED IN ERROR ___ Normal [facility] Comment on above: Performed By: #### B MP #### [facility] [address] [place] [address] Urinalysis, Microscopicon Urinalysis, Microscopic 4+ Abnormal [facility] 3 DO Work Phone: [phone] Urinalysis, Microscopic 3 {/HPF} [facility] 3 DO Work Phone: Urinalysis, Microscopic 2 {/HPF} 0-5 [facility] DO Work Phone: Urinalysis, Microscopic 9 {/HPF} Abnormal 0-5 [facility] [place] [address] DO Work Phone: Office Visit (Internal Medic ine)on 03-20-2022 Follow-up visit Diagnoses/Problems Assessed Otitis externa (380.10) (H60.90) History of recurrent ear infection (V12.49) (Z86.69) Orders History of recurrent ear infection, Otitis externa Otolaryngology - General Referral Evaluation and Treatment Evaluate AND Treat Status: Complete Done: 20Mar2022 Ordered;For: History of recurrent ear infection, Otitis externa; Ordered By: James Sahu Performed: Due: 18Jun2022; Last Updated By: Melissa Saldana; 03/20/2022 3:53:36 PM FAXED REFERAL TO DR RIDLEY Otitis externa Start: Cipro HC 0.2-1 % Otic Suspension; INSTILL 3 DROPS IN AFFECTED EAR(S) TWICE DAILY Rx By: James Sahu; Dispense: 0 Days ; #:1 X 10 ML Bottle; Refill: 0;For: Otitis externa; JAMIE = N; Sent To: [id number]; Last Updated By: Jose AlejandroNMT Medicaler; 03/20/2022 3:49:16 PM Provider Impressions 1. It looks like she has a sore in her right ear canal that is crusting, I don?t think it is actually a swimmers ear, will try drops but as this has been bothering her for some time i recommend that she seen ENT Chief Complaint 52 y/o female presents with complaint of RT ear infection Was at Urgent care for LT ear infection tx with Tetracycline in January History of Present IllnessPatient is here today for ear pain. Patient reports that she was treated for an ear infection in January with antibiotics. She states that it still bothers her. She had her fan blowing on her and she had a really sharp pain. Review of Systems Constitutional: no fever, no chills and not feeling poorly. ENT: no nasal discharge and no sore throat. Cardiovascular: no chest pain and no palpitations. Respiratory: no cough and not coughing up sputum. Gastrointestinal: no abdominal pain, no melena and no nausea. Active Problems Problems Bipolar depression (296.50) (F31.9) Class 2 obesity with body mass index (BMI) of 36.0 to 36.9 in adult (278.00,V85.36) (E66.9,Z68.36) Depression (311) (F32.A) Diabetes (250.00) (E11.9) Goiter (240.9) (E04.9) HTN (hypertension) (401.9) (I10) Insomnia (780.52) (G47.00) Seizures (780.39) (R56.9) Sinus infection (473.9) (J32.9) Past Medical History Problems History of cerebrovascular accident (V12.54) (Z86.73) History of diabetes mellitus (V12.29) (Z86.39) History of thyroid disorder (V12.29) (Z86.39) Surgical History Problems History of Back surgery Family History Mother Family history of DM II (diabetes mellitus, type II), controlled Other Family history of Alzheimer's disease (V17.2) (Z82.0) Family history of cerebrovascular accident (CVA) (V17.1) (Z82.3) Family history of dementia (V17.2) (Z81.8) Family history of diabetes mellitus (V18.0) (Z83.3) Family history of Psychiatric diagnosis Social History Problems Coffee Light cigarette smoker (1-9 cigarettes per day) (305.1) (F17.210) No illicit drug use Occasional alcohol use Allergies Medication azithromycin Recorded By: James Sahu; 09/10/2021 3:20:00 PM Sulfa Antibiotics Recorded By: James Sahu; 09/10/2021 3:20:00 PM Current Meds Medication NameInstruction Accu-Chek Guide In Vitro StripTEST TWICE DAILY. Accu-Chek Guide w/Device KitTEST SUGARS TWICE DAILY Aspirin Low Dose 81 MG Oral Tablet Delayed ReleaseTAKE 1 TABLET BY MOUTH EVERY DAY B-12 Dots 500 MCG Oral Tablet Disintegrating Biotin 5000 MCG Oral Capsule carBAMazepine 200 MG Oral TabletTAKE 1 TABLET 3 TIMES DAILY. Carvedilol 3.125 MG Oral TabletTAKE 1 TABLET BY MOUTH EVERY DAY Centrum Silver 50+Women Oral TabletTAKE 1 TABLET DAILY. D3-50 1.25 MG (47178 UT) Oral CapsuleTAKE 1 CAPSULE ONCE DAILY Farxiga 10 MG Oral TabletTAKE 1 TABLET BY MOUTH EVERY MORNING Losartan Potassium-HCTZ 100-25 MG Oral TabletTAKE 1 TABLET ONCE DAILY. Magnesium 400 MG Oral TabletTAKE 1 TABLET IN THE MORNING Melatonin 3 MG Oral TabletTAKE 1 TABLET Bedtime PRN sleep At Bedtime Take 1 cap 1 hour before bedtime for sleep. metFORMIN HCl ER (OSM) 500 MG Oral Tablet Extended Release 24 HourTake 2 tablets twice daily. Vitamin A 2400 MCG (8000 UT) Oral CapsuleTAKE DIRECTED. Vitamin C 500 MG Oral Tablet Vitamin E 180 MG (400 UNIT) Oral Capsule Vitals Vital Signs Recorded: 20Mar2022 03:33PM Heart Rate98 [id number] [id number] Height5 ft Emtchh272 lb BMI Xkozairaok95.94 kg/m2 BSA Calculated1.96 Tobacco Usea) Yes Patient encouraged to stop using tobacco productsYes PHQ-2 Patient Declined/Screening not indicatedYes Falls Screening (Age 18+)a) No falls within the last year Physical Exam Constitutional General appearance: Alert and in no acute distress. Eyes Inspection of eyes: Sclera and conjunctiva were normal. Pupil exam: Pupils were equal in size. Extraocular movements were intact. Ears, Nose, Mouth, and Throat External inspection of ears and nose: Abnormal. Otoscopic examination: Tympanic membranes: Normal with no congestion and no discharge. Otic Canals: Normal without tenderness, congestion or discharge. Jeanette (more content not included)... Normal PlanG Tobacco Screening.on 022 Fall risk assessment a) No falls within the last year [facility] Work Phone: [phone] [facility] a) Yes [facility] [place] Work Phone: [phone] Tobacco Screening. Yes [facility] [place] Work Phone: [phone] Complete Blood Count + Diffe rentialon 12-03-2021 Basophils/100 WBC (Bld) 0.4 % 0.0 - 2.0 [facility] [place] Work Phone: [phone] Erythrocyte distribution width (RBC) [Ratio] 13.0 % See Below [facility] Work Phone: [phone] Comment on above: Reference Range: 11. 5 - 14.5 Hematocrit (Bld) [Volume fraction] 42.6 % See Below [facility] Work Phone: [phone] Comment on above: Reference Range: 36. 0 - 46.0 Hemoglobin (Bld) [Mass/Vol] 15.0 g/dL See Below [facility] Work Phone: [phone] Comment on above: Reference Range: 12. 0 - 16.0 Lymphocytes/100 WBC (Bld) 35.1 % See Below [facility] Work Phone: [phone] Comment on above: Reference Range: 13. 0 - 44.0 MCHC (RBC) [Mass/Vol] 35.1 g/dL See Below [facility] Work Phone: [phone] Comment on above: Reference Range: 32. 0 - 36.0 MCV (RBC) [Entitic vol] 91 fL 80 - 100 [facility] [place] Work Phone: [phone] Monocytes/100 WBC (Bld) 7.5 % 2.0 - 10.0 [facility] Work Phone: [phone] Neutrophils/100 WBC (Bld) 55.5 % See Below [facility] Work Phone: [phone] Comment on above: Reference Range: 40. 0 - 80.0 Platelets (Bld) [#/Vol] 303 10*3/uL 150 - 450 [facility] Work Phone: [phone] RBC (Bld) [#/Vol] 4.70 {x10E12/L} See Below [facility] Work Phone: [phone] Comment on above: Reference Range: 4.0 0 - 5.20 WBC (Bld) [#/Vol] 8.0 10*3/uL 4.4 - 11.3 [facility] Work Phone: [phone] Complete Blood Count + Differential 0.00 {x10E9/L} See Below [facility] Work Phone: [phone] Comment on above: Reference Range: 0.0 0 - 0.10 Complete Blood Count + Differential 0.10 {x10E9/L} See Below [facility] Work Phone: [phone] Comment on above: Reference Range: 0.0 0 - 0.70 Complete Blood Count + Differential 0.60 {x10E9/L} See Below [facility] Work Phone: [phone] Comment on above: Reference Range: 0.1 0 - 1.00 Complete Blood Count + Differential 2.80 {x10E9/L} See Below [facility] Work Phone: [phone] Comment on above: Reference Range: 1.2 0 - 4.80 Complete Blood Count + Differential 4.40 {x10E9/L} See Below [facility] Work Phone: [phone] Comment on above: Reference Range: 1.2 0 - 7.70 Percent differential counts (%) should be interpreted in the context of the absolute cell counts (cells/L). Complete Blood Count + Differential 1.5 % 0.0 - 6.0 [facility] Work Phone: [phone] Hemoglobin A1Con 12-03-2021 Glucose [Mass/Vol] 258 mg/dL [facility] Work Phone: [phone] HbA1c (Bld) [Mass fraction] 10.6 % Abnormal [facility] Work Phone: [phone] Comment on above: Diagnosis of Diabete s-Adults Non-Diabetic: < or = 5.6% Increased risk for developing diabetes: 5.7-6.4% Diagnostic of diabetes: > or = 6.5%. Monitoring of Diabetes Age (y) Therapeutic Goal (%) Adults: >18 <7.0 Pediatrics: 13-18 <7.5 7-12 <8.0 0- 6 7.5-8.5 [employer]. Diabetes Care 33(S1), Aug 2009. Laboratory - Chemistry and C hemistry - challengeon 12-03-2021 Albumin BCP dye [Mass/Vol] 4.3 g/dL 3.4 - 5.0 [facility] Work Phone: [phone] ALP [Catalytic activity/Vol] 73 U/L 33 - 110 [facility] Work Phone: [phone] ALT With P-5'-P [Catalytic activity/Vol] 39 U/L 7 - 45 [facility] Work Phone: [phone] Comment on above: Patients treated wit h Sulfasalazine may generate falsely decreased results for ALT. Anion gap [Moles/Vol] 14 mmol/L 10 - 20 [facility] Work Phone: [phone] AST With P-5'-P [Catalytic activity/Vol] 35 U/L 9 - 39 [facility] Work Phone: [phone] Bilirubin [Mass/Vol] 0.3 mg/dL 0.0 - 1.2 [facility] Work Phone: [phone] Calcium [Mass/Vol] 9.7 mg/dL 8.6 - 10.3 [facility] Work Phone: [phone] Chloride [Moles/Vol] 96 mmol/L below low threshold 98 - 107 [facility] Work Phone: [phone] CO2 [Moles/Vol] 25 mmol/L 21 - 32 [facility] Work Phone: [phone] Creatinine [Mass/Vol] 0.67 mg/dL See Below [facility] Work Phone: [phone] Comment on above: Reference Range: 0.5 0 - 1.05 Glucose [Mass/Vol] 289 mg/dL above high threshold 74 - 99 [facility] Work Phone: [phone] Potassium [Moles/Vol] 4.1 mmol/L 3.5 - 5.3 [facility] [place] Work Phone: [phone] Protein [Mass/Vol] 7.5 g/dL 6.4 - 8.2 [facility] Work Phone: [phone] Sodium [Moles/Vol] 131 mmol/L below low threshold 136 - 145 [facility] Work Phone: [phone] TSH Qn 1.05 m[IU]/L See Below [facility] Work Phone: [phone] Comment on above: Reference Range: 0.4 4 - 3.98 TSH testing is performed using different testing methodology at [facility] than at other [facility]. Direct result comparisons should only be made within the same method. Urea nitrogen [Mass/Vol] 17 mg/dL 6 - 23 [facility] Work Phone: [phone] No Panel Informationon 12-03 >90 >90 [facility] Work Phone: Comment on above: CALCULATIONS OF NICK MATED GFR ARE PERFORMED USING THE 2020 CKD-EPI STUDY REFIT EQUATION WITHOUT THE RACE VARIABLE FOR THE IDMS-TRACEABLE CREATININE METHODS.https://jasn.asnjournals.org/content//ASN .3317785554 Blood Pressure Cuff Sizeon 0 09-10-2021 Fall risk assessment a) No falls within the last year [facility] Work Phone: [phone] Tobacco use status [facility] a) Yes [facility] Work Phone: [phone] Blood Pressure Cuff Size Adult [facility] Work Phone: Blood Pressure Cuff Size Yes [facility] Work Phone: COVID-19, MOLECULARon 2020 SARS-COV-2 (KATE ID) Not Detected Normal Not Detected [facility] Comment on above: Result Comment: This test was performed under the FDA's Emergency Use Authorization (EUA). Testing was performed using the Kate ID NOW COVID-19 assay on the ID NOW platform. This test has not been approved for use in asymptomatic patients and its performance in this patient population has not been evaluated. Negative results do not rule out the presence of SARS-CoV-2/COVID-19. Fact sheets for the EUA can be found at the following links: For Healthcare Providers: https://www.fda.gov/media/025898/download For Patients: https://www.fda.gov/media/609507/download COVID-19, Molecularon 2020 Interpretation and review of laboratory results Normal [facility] SARS-CoV-2 Not Detected Not Detected [facility] Comment on above: This test was perfor med under the FDA's Emergency Use Authorization (EUA). Testing was performed using the Kate ID NOW COVID-19 assay on the ID NOW platform. This test has not been approved for use in asymptomatic patients and its performance in this patient population has not been evaluated. Negative results do not rule out the presence of SARS-CoV-2/COVID-19. Fact sheets for the EUA can be found at the following links: For Healthcare Providers: https://www.fda.gov/media/416610/download For Patients: https://www.fda.gov/media/095170/download POC CBC and Differentialon 0 10-23-2020 Basophils (Bld) [#/Vol] 0.02 10*3/uL [facility] Basophils/100 WBC (Bld) 0.3 % [facility] Eosinophils (Bld) [#/Vol] 0.16 10*3/uL [facility] Eosinophils/100 WBC (Bld) 2.2 % [facility] Erythrocyte distribution width (RBC) [Entitic vol] 12.2 % 11.6 - 14.8 % [facility] Hematocrit (Bld) [Volume fraction] 41.0 % 36.0 - 46.0 % [facility] Hemoglobin (Bld) [Mass/Vol] 14.1 g/dL 12.0 - 16.0 g/dL [facility] Immature granulocytes (Bld) [#/Vol] 0.05 10*3/uL [facility] Immature granulocytes/100 WBC (Bld) 0.70 % [facility] Comment on above: The IG parameter is the percentage of metamyelocytes, myelocytes and promyelocytes. An immature granulocyte count (IG) of 1% or more suggests the possibility of infection, an IG count of 3% is very likely related to an infection. Interpretation and review of laboratory results Abnormal [facility] Lymphocytes (Bld) [#/Vol] 2.41 10*3/uL [facility] Lymphocytes/100 WBC (Bld) 32.5 % [facility] MCH (RBC) [Entitic mass] 31.2 pg 26.0 - 34.0 pg [facility] MCHC (RBC) [Mass/Vol] 34.4 g/dL 31.0 - 37.0 g/dL [facility] MCV (RBC) [Entitic vol] 90.7 fL 80.0 - 100.0 fL [facility] Monocytes (Bld) [#/Vol] 0.60 10*3/uL [facility] Monocytes/100 WBC (Bld) 8.1 % [facility] Neutrophils (Bld) [#/Vol] 4.18 10*3/uL [facility] Neutrophils/100 WBC (Bld) 56.2 % [facility] Platelet mean volume (Bld) [Entitic vol] 9.2 fL Low 9.4 - 12.4 fL [facility] Platelets (Bld) [#/Vol] 259 10*3/uL [facility] RBC (Bld) [#/Vol] 4.52 10*6/uL [facility] WBC (Bld) [#/Vol] 7.42 10*3/uL [facility] POC Influenza A/Bon 10-24-19 Interpretation and review of laboratory results Normal [facility] POC Influenza B Ag Not Detected Not Detected [facility] POC Rapid Influenza A Ag Not Detected Not Detected [facility] POC Liver Panel Pluson 10-23 Albumin [Mass/Vol] 3.4 g/dL 3.2 - 5.2 g/dL [facility] ALP [Catalytic activity/Vol] 67 U/L 40 - 150 U/L [facility] ALT [Catalytic activity/Vol] 37 U/L 0 - 40 U/L [facility] Amylase [Catalytic activity/Vol] 56 U/L 25 - 115 U/L [facility] AST [Catalytic activity/Vol] 39 U/L 0 - 45 U/L [facility] Bilirubin [Mass/Vol] 0.6 mg/dL 0.0 - 1 .3 mg/dL [facility] Gamma glutamyl transferase [Catalytic activity/Vol] 75 U/L High 7 - 33 U/L [facility] Interpretation and review of laboratory results Abnormal [facility] Protein [Mass/Vol] 7.6 g/dL 6.0 - 8.0 g/dL [facility] POC Urinalysis Dipstick, Aut oon 10-23-2020 Bilirubin Ql (U) Negative Negative [facility] Glucose Ql (U) Negative Negative mg/dL [facility] Hemoglobin Ql (U) Negative Negative [facility] Interpretation and review of laboratory results Abnormal [facility] Ketones Ql (U) Negative Negative mg/dL [facility] Leukocyte esterase Test strip Ql (U) Negative Negative [facility] Nitrite Ql (U) Negative Negative [facility] pH (U) 7.0 [pH] [facility] Protein Ql (U) 100 Abnormal Negative mg/dL [facility] Specific gravity (U) [Rel density] 1.020 [facility] Urobilinogen Qn (U) 0.2 mg/dL <2.0 [facility] POC Venous Blood Gases with Full Panelon 10-23-2020 Base excess Calc (BldV) [Moles/Vol] 0.0 mmol/L [facility] Calcium.ionized [Mass/Vol] 4.5 mg/dL 4.5 - 5.3 mg/dL [facility] Chloride [Moles/Vol] 98 mmol/L 98 - 10 8 mmol/L [facility] CO2 (BldV) [Partial pressure] 41.6 mm[Hg] [facility] Creatinine [Mass/Vol] 0.81 mg/dL 0.40 - 1.10 [facility] GFR/1.73 sq M predicted among non-blacks MDRD (S/P/Bld) [Vol rate/Area] The eGFR should be used for monitoring renal function only and not for medication dosing. Specimens collected in a lithium heparin tube may show erroneous pO2, pCO2 and related calculations due to aerobic handling. If the most accurate venous blood gas results are needed, use a heparinized blood gas syringe. [facility] GFR/1.73 sq M.predicted MDRD (S/P/Bld) [Vol rate/Area] 84 mL/min/{1.73_m2} >=60 mL/min/1.73 m2 [facility] Glucose [Mass/Vol] 203 mg/dL High 65 - 99 mg/dL [facility] HCO3 (Bld) [Moles/Vol] 25.2 mmol/L 24.0 - 28.0 mmol/L [facility] Hematocrit (Bld) [Volume fraction] 45 % 36 - 46 % [facility] Hemoglobin (Bld) [Mass/Vol] 15.4 g/dL 12.0 - 16.0 g/dL [facility] Interpretation and review of laboratory results Abnormal [facility] Lactate [Moles/Vol] 1.9 mmol/L 0.6 - 2. 0 mmol/L [facility] Oxygen (BldV) [Partial pressure] 48 mm[Hg] High [facility] Oxygen saturation in Venous blood 83.1 % High 40.0 - 70.0 % [facility] pH (BldV) 7.39 [pH] [facility] Potassium [Moles/Vol] 4.2 mmol/L 3.5 - 5.1 mmol/L [facility] Sodium [Moles/Vol] 132 mmol/L Low 135 - 145 mmol/L [facility] Urea nitrogen [Mass/Vol] 17 mg/dL 8 - 25 mg/dL [facility] CSF CELL COUNT Aon 7 CSF COMMENT 12 CC CLEAR,COLORLESS CSF Normal [facility] CSF RBC NONE SEEN /UL Normal 0 [facility] WBC #/vol (Bld) NONE SEEN /UL Normal 0-5 [facility] CSF GLUCOSEon 12-19-2016 CSF GLUCOSE 120 H MG/DL Abnormal 40-70 [facility] CSF TOTAL PROTEIon 7 CSF TOTAL PROTEIN 27 MG/DL Normal 15-45 [facility] LUMBAR PUNCTUREon 12-19-2016 LUMBAR PUNCTURE FLUORO GUIDANCE CPT [facility] IM Normal [facility] URINE PREGNANCYon 12-19-2016 HCG.beta subunit ( test) Ql (U) Negative Normal [facility] CBC WITH DIFFon 05-27-2016 ABSOLUTE BASO 0.00 K/UL Normal 0.00-0.20 [facility] ABSOLUTE EOS 0.10 K/UL Normal 0-0.33 [facility] ABSOLUTE LYMPHOCYTE 2.90 K/UL Normal 1.1-4.8 [facility] ABSOLUTE MONOCYTE 0.70 K/UL Normal 0.2-0.7 [facility] ABSOLUTE NEUTROPHIL 7.70 K/UL Normal 1.83-8.70 [facility] Basophils Auto #/vol (Bld) 0.4 % Normal 0.0-1.5 [facility] DIFF TYPE AUTO Normal [facility] Eosinophils/100 leukocytes 0.9 % Normal 0.0-3.0 [facility] Erythrocyte distribution width Auto Ratio (RBC) 13.3 % Normal 10.9-14.3 [facility] Erythrocytes (RBC) 4.50 M/UL Normal 4.00-4.90 [facility] Hematocrit (HCT) 40.7 % Normal 37.0-47.0 [facility] Hemoglobin mass conc (Bld) 13.9 g/dL Normal 12.0-15.0 [facility] Lymphocytes/100 leukocytes 25 % Normal 24-44 [facility] MCH 30.9 pg Normal 28.0-34.0 [facility] MCHC mass conc (RBC) 34.2 MG/DL Normal 33.0-37.0 [facility] MCV 90.5 fL Normal 80-100 [facility] Monocytes/100 leukocytes 6.5 % Normal 3.4-9.0 [facility] NEUTROPHIL 67.2 % Normal 40.0-74.0 [facility] Platelets 262 10*3/uL Normal 150-450 [facility] WBC (Leukocytes) 11.5 10*3/uL Abnormal 4.5-11.0 [facility] HEPATIC FUNCTIONon 10-18-201 6 Alanine aminotransferase (ALT) 18 U/L Normal 10-54 [facility] Albumin 3.9 g/dL Normal 3.4-4.8 [facility] Albumin/Globulin Ratio 1.2 {ratio} Normal 1.1-2.2 [facility] ALK PHOS 54 U/L Normal 42-121 [facility] Aspartate aminotransferase (AST) 22 U/L Normal 10-41 [facility] Bilirubin (direct) 0.5 mg/dL Normal 0.3-1.5 [facility] Bilirubin (direct) 0.1 mg/dL Normal 0.0-0.5 [facility] Globulin 3.2 g/dL Normal 1.9-3.9 [facility] INDIRECT BILI 0.4 MG/DL Normal 0.0-1.0 [facility] Protein 7.1 g/dL Normal 5.9-7.8 [facility] TEGRETOLon 05-27-2016 CARBAMAZEPINE 6.9 UG/ML Normal 4-12 [facility] Vital Signs Date Time Vital Sign Value Performing Clinician Facility 06-16-2025 03:36-0500 Diastolic blood pressure 68 mm[Hg] Bren Kowalski DO Work Phone: [phone] [place] [address] 06-16-2025 03:36-0500 Heart rate 86 /min Bren Kowalski DO Work Phone: [phone] [place] [address] 06-16-2025 03:36-0500 Respiratory rate 18 /min Rben Kowalski DO Work Phone: [phone] [place] [address] 06-16-2025 03:36-0500 SaO2% (BldA) [Mass fraction] 95 % Bren Kowalski DO Work Phone: [phone] [place] [address] 06-16-2025 03:36-0500 Systolic blood pressure 139 mm[Hg] Bren Kowalski DO Work Phone: [phone] [place] [address] 06-16-2025 00:50-0500 Body height 167.6 cm Bren Kowalski DO Work Phone: [phone] [place] [address] 06-16-2025 00:50-0500 Body mass index (BMI) [Ratio] 38.58 kg/m2 Bren Kowalski DO Work Phone: [phone] [place] [address] 06-16-2025 00:50-0500 Body temperature 98.2 [degF] Bren Kowalski DO Work Phone: [phone] [place] [address] 06-16-2025 00:50-0500 Body weight 108.41 kg Bren Kowalski DO Work Phone: [phone] [place] [address] 06-07-2025 10:17-0400 Body height 168.9 cm Suzanne Arroyo EARLY CHILDHOOD LEAD TEACHER-SYSTEMS SUPPORT ENGINEER Work Phone: [facility] 06-07-2025 10:17-0400 Body mass index (BMI) [Ratio] 37.6 kg/m2 Suzanne Arroyo EARLY CHILDHOOD LEAD TEACHER-SYSTEMS SUPPORT ENGINEER Work Phone: [facility] 06-07-2025 10:17-0400 Body weight 107.28 kg Suzanne Arroyo EARLY CHILDHOOD LEAD TEACHER-SYSTEMS SUPPORT ENGINEER Work Phone: [facility] 06-07-2025 10:17-0400 Diastolic blood pressure 81 mm[Hg] Suzanne Jerezman EARLY CHILDHOOD LEAD TEACHER-SYSTEMS SUPPORT ENGINEER Work Phone: [facility] 06-07-2025 10:17-0400 Heart rate 70 /min Suzanne Arroyo EARLY CHILDHOOD LEAD TEACHER-SYSTEMS SUPPORT ENGINEER Work Phone: [facility] 06-07-2025 10:17-0400 Systolic blood pressure 139 mm[Hg] Suzanne Arroyo EARLY CHILDHOOD LEAD TEACHER-SYSTEMS SUPPORT ENGINEER Work Phone: [facility] 04-19-2025 15:58-0400 Diastolic blood pressure 96 mm[Hg] Lynn Koch EARLY CHILDHOOD LEAD TEACHER-SYSTEMS SUPPORT ENGINEER Work Phone: [facility] 04-19-2025 15:58-0400 Systolic blood pressure 169 mm[Hg] Lynn Koch EARLY CHILDHOOD LEAD TEACHER-SYSTEMS SUPPORT ENGINEER Work Phone: [facility] 04-19-2025 14:50-0400 Body height 168.9 cm Lynn Koch EARLY CHILDHOOD LEAD TEACHER-SYSTEMS SUPPORT ENGINEER Work Phone: [facility] 04-19-2025 14:50-0400 Body mass index (BMI) [Ratio] 39.06 kg/m2 Lynn Koch EARLY CHILDHOOD LEAD TEACHER-SYSTEMS SUPPORT ENGINEER Work Phone: [facility] 04-19-2025 14:50-0400 Body weight 111.45 kg Lynn Koch EARLY CHILDHOOD LEAD TEACHER-SYSTEMS SUPPORT ENGINEER Work Phone: [facility] 04-19-2025 14:50-0400 Heart rate 78 /min Lynn Koch EARLY CHILDHOOD LEAD TEACHER-SYSTEMS SUPPORT ENGINEER Work Phone: [facility] 04-19-2025 14:50-0400 SaO2% (BldA) [Mass fraction] 97 % Lynn Koch EARLY CHILDHOOD LEAD TEACHER-SYSTEMS SUPPORT ENGINEER Work Phone: [facility] 09-28-2024 12:41-0500 Body height 167.6 cm Suzanne Jerezman EARLY CHILDHOOD LEAD TEACHER-SYSTEMS SUPPORT ENGINEER Work Phone: [facility] 09-28-2024 12:41-0500 Body mass index (BMI) [Ratio] 38.51 kg/m2 Suzanne Cruz EARLY CHILDHOOD LEAD TEACHER-SYSTEMS SUPPORT ENGINEER Work Phone: [facility] 09-28-2024 12:41-0500 Body weight 108.23 kg Suzanne Cruz EARLY CHILDHOOD LEAD TEACHER-SYSTEMS SUPPORT ENGINEER Work Phone: [facility] 09-28-2024 12:41-0500 Diastolic blood pressure 84 mm[Hg] Suzanne Jerezman EARLY CHILDHOOD LEAD TEACHER-SYSTEMS SUPPORT ENGINEER Work Phone: [facility] 09-28-2024 12:41-0500 Heart rate 83 /min Suzanne Jerezman EARLY CHILDHOOD LEAD TEACHER-SYSTEMS SUPPORT ENGINEER Work Phone: [facility] 09-28-2024 12:41-0500 Systolic blood pressure 139 mm[Hg] Suzanne Cruz EARLY CHILDHOOD LEAD TEACHER-SYSTEMS SUPPORT ENGINEER Work Phone: [facility] 07-08-2024 10:42-0500 Body height 167.6 cm Odell Newbill PA-C Work Phone: [facility] 07-08-2024 10:42-0500 Body mass index (BMI) [Ratio] 37.93 kg/m2 Odell Newbill PA-C Work Phone: [facility] 07-08-2024 10:42-0500 Body temperature 97.59 [degF] Odell Newbill PA-C Work Phone: [facility] 07-08-2024 10:42-0500 Body weight 106.59 kg Odell Newbill PA-C Work Phone: [facility] 07-08-2024 10:42-0500 Diastolic blood pressure 88 mm[Hg] Odell Newbill PA-C Work Phone: [facility] 07-08-2024 10:42-0500 Heart rate 80 /min Odell Newbill PA-C Work Phone: [facility] 07-08-2024 10:42-0500 Respiratory rate 16 /min Odell Newbill PA-C Work Phone: [facility] 07-08-2024 10:42-0500 SaO2% (BldA) [Mass fraction] 98 % Odell Newbill PA-C Work Phone: [facility] 07-08-2024 10:42-0500 Systolic blood pressure 138 mm[Hg] Odell Newbill PA-C Work Phone: [facility] 06-23-2024 14:28-0500 Body height 167.6 cm Emilie CASTREJON, DNP Work Phone: [facility] 06-23-2024 14:28-0500 Body mass index (BMI) [Ratio] 38.09 kg/m2 Emilie CASTREJON, DNP Work Phone: [facility] 06-23-2024 14:28-0500 Body weight 107.05 kg Emilie CASTREJON, DNP Work Phone: [facility] 06-23-2024 14:28-0500 Diastolic blood pressure 76 mm[Hg] Emilie CASTREJON, DNP Work Phone: [facility] 06-23-2024 14:28-0500 Heart rate 73 /min Emilie CASTREJON, DNP Work Phone: [facility] 06-23-2024 14:28-0500 Systolic blood pressure 140 mm[Hg] Emilie CASTREJON, DNP Work Phone: [facility] 06-17-2024 16:00-0500 Diastolic blood pressure 94 mm[Hg] Franko Murray MD Work Phone: [facility] 06-17-2024 16:00-0500 Heart rate 80 /min Franko Murray MD Work Phone: [facility] 06-17-2024 16:00-0500 Respiratory rate 16 /min Franko Murray MD Work Phone: [facility] 06-17-2024 16:00-0500 SaO2% (BldA) [Mass fraction] 97 % Franko Murray MD Work Phone: [facility] [facility] 06-17-2024 16:00-0500 Systolic blood pressure 152 mm[Hg] Franko Murray MD Work Phone: [facility] 06-17-2024 11:47-0500 Body height 167.6 cm Franko Murray MD Work Phone: [facility] 06-17-2024 11:47-0500 Body mass index (BMI) [Ratio] 36.32 kg/m2 Franko Murray MD Work Phone: [facility] 06-17-2024 11:47-0500 Body temperature 98.01 [degF] Franko Murray MD Work Phone: [facility] 06-17-2024 11:47-0500 Body weight 102.06 kg Franko Murray MD Work Phone: [facility] 04-25-2024 12:05-0400 Body height 167.6 cm Josh Harris EARLY CHILDHOOD LEAD TEACHER-SYSTEMS SUPPORT ENGINEER Work Phone: [facility] 04-25-2024 12:05-0400 Body mass index (BMI) [Ratio] 37.12 kg/m2 Josh Harris EARLY CHILDHOOD LEAD TEACHER-SYSTEMS SUPPORT ENGINEER Work Phone: [facility] 04-25-2024 12:05-0400 Body temperature 97.7 [degF] Josh Harris EARLY CHILDHOOD LEAD TEACHER-SYSTEMS SUPPORT ENGINEER Work Phone: [facility] 04-25-2024 12:05-0400 Body weight 104.33 kg Josh Harris EARLY CHILDHOOD LEAD TEACHER-SYSTEMS SUPPORT ENGINEER Work Phone: [facility] 04-25-2024 12:05-0400 Diastolic blood pressure 77 mm[Hg] Josh Ayalaenivaleria EARLY CHILDHOOD LEAD TEACHER-SYSTEMS SUPPORT ENGINEER Work Phone: [facility] 04-25-2024 12:05-0400 Heart rate 85 /min Josh Harris EARLY CHILDHOOD LEAD TEACHER-SYSTEMS SUPPORT ENGINEER Work Phone: [facility] 04-25-2024 12:05-0400 Respiratory rate 14 /min Josh Jamieblossom EARLY CHILDHOOD LEAD TEACHER-SYSTEMS SUPPORT ENGINEER Work Phone: [facility] 04-25-2024 12:05-0400 SaO2% (BldA) [Mass fraction] 94 % Josh Jamieenivaleria EARLY CHILDHOOD LEAD TEACHER-SYSTEMS SUPPORT ENGINEER Work Phone: [facility] 04-25-2024 12:05-0400 Systolic blood pressure 126 mm[Hg] Josh Harris EARLY CHILDHOOD LEAD TEACHER-SYSTEMS SUPPORT ENGINEER Work Phone: [facility] 04-13-2024 15:21-0400 Body height 168.9 cm Josh Harris EARLY CHILDHOOD LEAD TEACHER-SYSTEMS SUPPORT ENGINEER Work Phone: [facility] 04-13-2024 15:21-0400 Body mass index (BMI) [Ratio] 38.16 kg/m2 Josh Harris EARLY CHILDHOOD LEAD TEACHER-SYSTEMS SUPPORT ENGINEER Work Phone: [facility] 04-13-2024 15:21-0400 Body temperature 98.2 [degF] Josh Harris EARLY CHILDHOOD LEAD TEACHER-SYSTEMS SUPPORT ENGINEER Work Phone: [facility] 04-13-2024 15:21-0400 Body weight 108.86 kg Josh Ayalaenivaleria EARLY CHILDHOOD LEAD TEACHER-SYSTEMS SUPPORT ENGINEER Work Phone: [facility] 04-13-2024 15:21-0400 Diastolic blood pressure 87 mm[Hg] Josh Harris EARLY CHILDHOOD LEAD TEACHER-SYSTEMS SUPPORT ENGINEER Work Phone: [facility] 04-13-2024 15:21-0400 Heart rate 81 /min Josh Harris EARLY CHILDHOOD LEAD TEACHER-SYSTEMS SUPPORT ENGINEER Work Phone: [facility] 04-13-2024 15:21-0400 Respiratory rate 14 /min Josh Harris EARLY CHILDHOOD LEAD TEACHER-SYSTEMS SUPPORT ENGINEER Work Phone: [facility] 04-13-2024 15:21-0400 SaO2% (BldA) [Mass fraction] 97 % Josh Harris EARLY CHILDHOOD LEAD TEACHER-SYSTEMS SUPPORT ENGINEER Work Phone: [facility] 04-13-2024 15:21-0400 Systolic blood pressure 147 mm[Hg] Josh Harris EARLY CHILDHOOD LEAD TEACHER-SYSTEMS SUPPORT ENGINEER Work Phone: [facility] 04-15-2023 12:51-0400 Body height 152.4 cm James Oberhauser DO Work Phone: [facility] 04-15-2023 12:51-0400 Body mass index (BMI) [Ratio] 42.77 kg/m2 James Oberhauser DO Work Phone: [facility] 04-15-2023 12:51-0400 Body weight 99.34 kg James Oberhauser DO Work Phone: [facility] 04-15-2023 12:51-0400 Diastolic blood pressure 82 mm[Hg] James Oberhauser DO Work Phone: [facility] 04-15-2023 12:51-0400 Heart rate 76 /min James Oberhauser DO Work Phone: [facility] 04-15-2023 12:51-0400 Systolic blood pressure 126 mm[Hg] James Oberhauser DO Work Phone: [facility] 08-21-2022 15:19-0500 Body height 152.4 cm James L Oberhauser Work Phone: [facility] Work Phone: 08-21-2022 15:19-0500 Body mass index (BMI) [Ratio] 44.72 kg/m2 James L Oberhauser Work Phone: [facility] Work Phone: 08-21-2022 15:19-0500 Body surface area Derived from formula 1.98 m2 James L Oberhauser Work Phone: [facility] Work Phone: 08-21-2022 15:19-0500 Body weight 103.87 kg James L Oberhauser Work Phone: [facility] Work Phone: 08-21-2022 15:19-0500 Diastolic blood pressure 86 mm[Hg] James L Oberhauser Work Phone: [facility] Work Phone: 08-21-2022 15:19-0500 Heart rate 91 /min James L Oberhauser Work Phone: [facility] Work Phone: 08-21-2022 15:19-0500 Systolic blood pressure 150 mm[Hg] James L Oberhauser Work Phone: [facility] Work Phone: 07-14-2022 11:30-0500 Body height 152.4 cm James L Oberhauser Work Phone: [facility] 3 DO Work Phone: 07-14-2022 11:30-0500 Body mass index (BMI) [Ratio] 44.72 kg/m2 James L Oberhauser Work Phone: [facility] 3 DO Work Phone: 07-14-2022 11:30-0500 Body surface area Derived from formula 1.98 m2 James L Oberhauser Work Phone: [facility] 3 DO Work Phone: 07-14-2022 11:30-0500 Body weight 103.87 kg James L Oberhauser Work Phone: [facility] 3 DO Work Phone: 07-14-2022 11:30-0500 Diastolic blood pressure 90 mm[Hg] James L Oberhauser Work Phone: [facility] 3 DO Work Phone: 07-14-2022 11:30-0500 Heart rate 106 /min James L Oberhauser Work Phone: [facility] 3 DO Work Phone: 07-14-2022 11:30-0500 SaO2% (BldA) [Mass fraction] 98 % James L Oberhauser Work Phone: [facility] 3 DO Work Phone: 07-14-2022 11:30-0500 Systolic blood pressure 160 mm[Hg] James L Oberhauser Work Phone: [facility] 3 DO Work Phone: 06-12-2022 15:23-0400 Body mass index (BMI) [Ratio] 44.37 kg/m2 James L Oberhauser Work Phone: NA-Goecuub-Mkbvkcp 230 DO Work Phone: 06-12-2022 15:23-0400 Body surface area Derived from formula 1.97 m2 James L Oberhauser Work Phone: CQ-Jtdpzss-Beayfop 230 DO Work Phone: 06-12-2022 15:23-0400 Body weight 103.06 kg James L Oberhauser Work Phone: NN-Zylisth-Cezikxn 230 DO Work Phone: 06-12-2022 15:23-0400 Diastolic blood pressure 110 mm[Hg] James L Oberhauser Work Phone: SR-Aejikdl-Iydkigk 230 DO Work Phone: 06-12-2022 15:23-0400 Heart rate 88 /min James L Oberhauser Work Phone: SY-Eueysvj-Sprcyuu 230 DO Work Phone: 06-12-2022 15:23-0400 SaO2% (BldA) [Mass fraction] 97 % James L Oberhauser Work Phone: XK-Wmsycvi-Zjbgqga 230 DO Work Phone: 06-12-2022 15:23-0400 Systolic blood pressure 180 mm[Hg] James L Oberhauser Work Phone: UX-Bsmirpt-Eyxmxek 230 DO Work Phone: 05-29-2022 09:53-0400 Body height 152.4 cm James L Oberhauser Work Phone: MK-Zvceafo-Cbozjfe 230 DO Work Phone: 05-29-2022 09:53-0400 Body mass index (BMI) [Ratio] 44.14 kg/m2 James L Oberhauser Work Phone: UR-Jocxngc-Qybbomr 230 DO Work Phone: 05-29-2022 09:53-0400 Body surface area Derived from formula 1.97 m2 James L Oberhauser Work Phone: OA-Tussymu-Wkksqgq 230 DO Work Phone: 05-29-2022 09:53-0400 Body weight 102.51 kg James L Oberhauser Work Phone: SD-Vrtlohn-Svpdtdz 230 DO Work Phone: 05-29-2022 09:53-0400 Diastolic blood pressure 100 mm[Hg] James L Oberhauser Work Phone: YL-Htceasu-Ypkmyja 230 DO Work Phone: 05-29-2022 09:53-0400 Heart rate 95 /min James L Oberhauser Work Phone: NG-Fnbortn-Lscigmj 230 DO Work Phone: 05-29-2022 09:53-0400 Systolic blood pressure 174 mm[Hg] James L Oberhauser Work Phone: RI-Uxbzzma-Oqirybs 230 DO Work Phone: 05-23-2022 10:34-0400 Body mass index (BMI) [Ratio] 44.49 kg/m2 James L Oberhauser Work Phone: [facility] 3 DO Work Phone: 05-23-2022 10:34-0400 Body surface area Derived from formula 1.97 m2 James L Oberhauser Work Phone: [facility] 3 DO Work Phone: 05-23-2022 10:34-0400 Body weight 103.33 kg James L Oberhauser Work Phone: [facility] 3 DO Work Phone: 05-23-2022 10:34-0400 Diastolic blood pressure 120 mm[Hg] James L Oberhauser Work Phone: [facility] 3 DO Work Phone: 05-23-2022 10:34-0400 Heart rate 90 /min James L Oberhauser Work Phone: [facility] 3 DO Work Phone: 05-23-2022 10:34-0400 SaO2% (BldA) [Mass fraction] 98 % James L Oberhauser Work Phone: K[facility]afhud[facility] 3 DO Work Phone: 05-23-2022 10:34-0400 Systolic blood pressure 204 mm[Hg] James L Oberhauser Work Phone: [facility] 3 DO Work Phone: 05-16-2022 13:24-0400 Body height 152.4 cm James L Oberhauser Work Phone: [facility] Work Phone: 05-16-2022 13:24-0400 Body mass index (BMI) [Ratio] 44.33 kg/m2 James L Oberhauser Work Phone: [facility] Work Phone: 05-16-2022 13:24-0400 Body surface area Derived from formula 1.97 m2 James L Oberhauser Work Phone: [facility] Work Phone: 05-16-2022 13:24-0400 Body weight 102.97 kg James L Oberhauser Work Phone: [facility] Work Phone: 05-16-2022 13:24-0400 Diastolic blood pressure 97 mm[Hg] James L Oberhauser Work Phone: [facility] Work Phone: 05-16-2022 13:24-0400 Heart rate 92 /min James L Oberhauser Work Phone: [facility] Work Phone: 05-16-2022 13:24-0400 Systolic blood pressure 175 mm[Hg] James L Oberhauser Work Phone: [facility] Work Phone: 03-20-2022 15:33-0400 Body height 152.4 cm James L Oberhauser Work Phone: [facility] Work Phone: 03-20-2022 15:33-0400 Body mass index (BMI) [Ratio] 43.94 kg/m2 James L Oberhauser Work Phone: [facility] Work Phone: 03-20-2022 15:33-0400 Body surface area Derived from formula 1.96 m2 James L Oberhauser Work Phone: [facility] Work Phone: 03-20-2022 15:33-0400 Body weight 102.06 kg James L Oberhauser Work Phone: [facility] Work Phone: 03-20-2022 15:33-0400 Diastolic blood pressure 100 mm[Hg] James L Oberhauser Work Phone: [facility] Work Phone: 03-20-2022 15:33-0400 Heart rate 98 /min James L Oberhauser Work Phone: [facility] Work Phone: 03-20-2022 15:33-0400 Systolic blood pressure 178 mm[Hg] James L Oberhauser Work Phone: [facility] Work Phone: 09-10-2021 14:41-0500 Body height 170.18 cm James L Oberhauser Work Phone: [facility] Work Phone: 09-10-2021 14:41-0500 Body mass index (BMI) [Ratio] 36.34 kg/m2 James L Oberhauser Work Phone: [facility] Work Phone: 09-10-2021 14:41-0500 Body surface area Derived from formula 2.15 m2 James L Oberhauser Work Phone: [facility] Work Phone: 09-10-2021 14:41-0500 Body temperature 97.8 [degF] James L Oberhauser Work Phone: [facility] Work Phone: 09-10-2021 14:41-0500 Body weight 105.24 kg James L Oberhauser Work Phone: [facility] Work Phone: 09-10-2021 14:41-0500 Diastolic blood pressure 95 mm[Hg] James L Oberhauser Work Phone: [facility] Work Phone: 09-10-2021 14:41-0500 Heart rate 94 /min James L Oberhauser Work Phone: [facility] Work Phone: 09-10-2021 14:41-0500 Systolic blood pressure 149 mm[Hg] James L Oberhauser Work Phone: [facility] Work Phone: 10-23-2020 18:11-0400 BMI (Body Mass Index) 35.77 kg/m2 [facility]-2020 18:11-0400 Body Temperature 98.2 [degF] [facility] 10-23-2020 18:11-0400 Body weight 102.06 kg [facility] 10-23-2020 18:11-0400 BP Diastolic 101 mm[Hg] [facility] 10-23-2020 18:11-0400 BP Systolic 159 mm[Hg] [facility] 10-23-2020 18:0400 Height 168.9 cm Malcomfarrah Garcia [facility] 10-23-2020 18:11-0400 Pulse (Heart Rate) 92 /min [facility] 10-23-2020 18:11-0400 Pulse Oximetry 99 % [facility] 10-23-2020 18:-0400 Respiratory Rate 18 /min [facility] Encounters Encounter Date Encounter Type Care Provider Facility Start: 06-16-2025 Encounter for other preprocedural examination [facility] Start: 06-16-2025 End: 06-16-2025 Emergency department patient visit Bren Aguilar Kowalski DO Work Phone: [facility] Comment on above: UTI (urinary tract i nfection), uncomplicated (Primary Dx); Periumbilical abdominal pain Start: 06-12-2025 End: 06-13-2025 ambulatory [facility] Facility:[facility] Start: 06-12-2025 ambulatory [facility] Start: 06-08-2025 End: 06-08-2025 ambulatory [facility] Start: 06-07-2025 End: 06-08-2025 ambulatory [facility] Amb[facility] Start: 06-07-2025 End: 06-07-2025 Encounter for other preprocedural examination [facility] Ambulatory Start: 06-07-2025 End: 06-07-2025 Office outpatient visit 15 minutes Suzanne Arroyo EARLY CHILDHOOD LEAD TEACHER-SYSTEMS SUPPORT ENGINEER Work Phone: [facility] Comment on above: Primary hypertension (Primary Dx); Hyponatremia; Pre-operative clearance Start: 06-07-2025 End: 06-07-2025 Preoperative state Suzanne Arroyo EARLY CHILDHOOD LEAD TEACHER-SYSTEMS SUPPORT ENGINEER Work Phone: [facility] Work Phone: Start: 05-23-2025 End: 05-23-2025 ambulatory [facility] Facility:[facility] Start: 04-19-2025 End: 04-19-2025 Office outpatient visit 25 minutes Lynn Koch EARLY CHILDHOOD LEAD TEACHER-SYSTEMS SUPPORT ENGINEER Work Phone: [facility] Comment on above: Type 2 diabetes anny itus without complication, without long- term current use of insulin (Primary Dx); Primary hypertension Start: 04-19-2025 End: 04-19-2025 ambulatory [facility] Valeria [facility] Ambulatory Start: 03-23-2025 End: 03-23-2025 ambulatory Suzanne Arroyo Facility:[facility] Start: 03-16-2025 ambulatory [facility] Facility:[facility] Start: 03-16-2025 End: 03-16-2025 ambulatory [facility] Facility:[facility] Start: 03-07-2025 End: 03-07-2025 ambulatory Demario Wagner Seese Facility:[facility] Start: 02-24-2025 End: 02-24-2025 ambulatory [facility] Facility:[facility] Start: 02-03-2025 End: 02-03-2025 ambulatory Kentrell Tolentino Facility:[facility] Start: 01-05-2025 End: 01-05-2025 ambulatory Demario L Seese Facility:[facility] Start: 12-13-2024 End: 12-13-2024 ambulatory Suzanne Cruz Facility:[facility] Start: 11-23-2024 End: 11-23-2024 ambulatory Demario L Seese Facility:[facility] Start: 10-24-2024 End: 10-24-2024 Subsequent hospital visit by physician Rad External Film EF RAD EXTERNAL FILM [facility]IRTUAL Comment on above: Arrived Start: 10-24-2024 End: [facility] Start: 10-13-2024 End: 10-13-2024 ambulatory Demario L Seese Facility:[facility] Start: 10-11-2024 End: 10-11-2024 Subsequent hospital visit by physician Jadon Marina [facility] Comment on above: Encounter for screen ing mammogram for malignant neoplasm of breast Start: 10-11-2024 End: 10-11-2024 [facility] Start: 09-28-2024 End: 09-28-2024 Office outpatient visit 25 minutes Suzanne Arroyo EARLY CHILDHOOD LEAD TEACHER-SYSTEMS SUPPORT ENGINEER Work Phone: [facility] Comment on above: Screening for colon cancer (Primary Dx); Folliculitis; Encounter for screening mammogram for malignant neoplasm of breast; Acute low back pain without sciatica, unspecified back pain laterality Start: 09-28-2024 End: 09-28-2024 ambulatory [facility] Start: 09-27-2024 End: 09-27-2024 ambulatory Demario Wagner See Facility:[facility] Start: 07-26-2024 End: 07-26-2024 ambulatory Demario L Seese Facility:[facility] Start: 07-08-2024 End: 07-08-2024 Office outpatient new 45 minutes Odell Mock PA-C Work Phone: [facility] Comment on above: Acute cystitis witho ut hematuria (Primary Dx); Dysuria Start: 07-08-2024 End: 07-08-2024 ambulatory [facility] Start: 06-23-2024 End: 06-23-2024 Office outpatient visit 15 minutes Emilie Cornelius APRN-SYSTEMS SUPPORT ENGINEER, DNP Work Phone: [facility] Comment on above: Hyponatremia (Primar y Dx); Primary hypertension Start: 06-23-2024 End: 06-23-2024 ambulatory [facility] Ambulatory Start: 06-20-2024 End: 06-20-2024 [facility] Start: 06-17-2024 End: 06-17-2024 Emergency department patient visit Franko Murray MD Work Phone: [facility] Comment on above: Urinary tract infect ion without hematuria, site unspecified (Primary Dx); Hyponatremia Start: 04-25-2024 End: 04-25-2024 Patient encounter procedure Josh Harris APRN-SYSTEMS SUPPORT ENGINEER Work Phone: [facility] Comment on above: Acute bronchitis, un specified organism (Primary Dx) Start: 04-13-2024 End: 04-13-2024 Patient encounter procedure Josh Harris APRN-SYSTEMS SUPPORT ENGINEER Work Phone: [facility] Comment on above: Other infective acut e otitis externa of left ear (Primary Dx) Start: 04-15-2023 End: 04-15-2023 Office outpatient visit 25 minutes James Sahu DO Work Phone: [facility] Comment on above: Type 2 diabetes anny itus without complication, without long- term current use of insulin ([facility]) (Primary Dx); Recurrent major depressive disorder, in partial remission ([facility]); Seizures ([facility]); Primary insomnia; Acute diffuse otitis externa of left ear Start: 09-05-2022 Rx Renewal James Elliott user Work Phone: [facility] Work Phone: Start: 08-21-2022 FUV, Provider: James Sahu, Status: Pen, Time: 3:20 PM James Sahu Work Phone: [facility] Work Phone: Start: 08-21-2022 Office outpatient vi sit 25 minutes James Sahu Work Phone: [facility] Work Phone: Start: 08-21-[address] James Sahu Facility:[id number] Start: 08-20-2022 Chart Update James Wagner Oberrossi user Work Phone: [facility] Work Phone: Start: 08-18-2022 Chart Update James Robertserha user Work Phone: [facility] Work Phone: Start: 08-14-2022 AUDIT James Robertserrossi user Work Phone: [facility] Work Phone: Start: 07-14-2022 Office outpatient vi sit 15 minutes James L Oberhauser Work Phone: [facility] 3 DO Work Phone: Start: 07-14-2022 ambulatory Ms. Emilie Cornelius Fa cility:[id number] Start: 06-25-2022 Chart Update James L Oberha user Work Phone: [facility] 3 DO Work Phone: Start: 06-13-2022 Chart Update James L Oberha user Work Phone: [facility] 3 DO Work Phone: Start: 06-12-2022 FUV, Provider: Emilie Cornelius, Status: Pen, Time: 3:30 PM James L Oberhauser Work Phone: [facility] 3 DO Work Phone: Start: 06-12-2022 Office outpatient vi sit 15 minutes James L Oberhauser Work Phone: JJ-Ijfipfr-Eapszaq 230 DO Work Phone: Start: 06-12-2022 ambulatory MsKofi Lee cility:[id number] Start: 06-09-2022 AUDIT James L Oberha user Work Phone: [facility] 3 DO Work Phone: Start: 05-29-2022 AUDIT James L Oberha user Work Phone: [facility] Work Phone: Start: 05-29-2022 Office outpatient vi sit 15 minutes James L Oberhauser Work Phone: EC-Sthrdzq-Iawdjyy 230 DO Work Phone: Start: 05-29-2022 ambulatory Ms. Emilie Cornelius Fa cility:[id number] Start: 05-23-2022 Office outpatient vi sit 15 minutes James Sahu Work Phone: [facility] Work Phone: Start: 05-23-[address] James Sahu Facility:[id number] Start: 05-19-2022 AUDIT James Taterossi user Work Phone: [facility] Work Phone: Start: 05-16-[address] James Sahu Facility:[id number] Start: 05-16-2022 [facility], Provider: James Sahu, Status: Pen, Time: 1:20 PM James Sahu Work Phone: [facility] 3 DO Work Phone: Start: 05-16-2022 Office outpatient vi sit 25 minutes James Sahu Work Phone: [facility] Work Phone: Start: 05-14-2022 Chart Update James Taterossi user Work Phone: [facility] 3 DO Work Phone: Start: 04-30-2022 AUDIT James Elliott user Work Phone: [facility] 3 DO Work Phone: Start: 04-28-2022 End: 04-30-2022 Evaluation and management of inpatient Dr. James Sahu Facility:[id number] Start: 04-11-[address] James Sahu Facility:[id number] Start: 04-11-2022 Patient encounter procedure James Sahu Work Phone: [facility] Work Phone: Start: 03-20-[address] James Sahu Facility:[id number] Start: 12-06-2021 AUDIT James Elliott user Work Phone: [facility] Work Phone: Start: 12-03-2021 Chart Update James Elliott user Work Phone: [facility] Work Phone: Start: 09-10-2021 Office outpatient ne w 45 minutes James Sahu Work Phone: [facility] Work Phone: Start: 10-23-2020 End: 10-23-2020 Emergency department patient visit MALCOM CLAUDINE SHEETS [facility] Start: 10-23-2020 End: 10-23-2020 Emergency department patient visit Palmer Claudine Sheets [place] Work Phone: [facility] Start: 09-28-2018 End: 09-28-2018 ambulatory [facility] Facility:[facility] Procedures Date Procedure Procedure Detail Performing Clinician Start: 06-16-2025 Ct abdomen & pelvis w/contrast material Bren Cedeñoft DO Work Phone: Start: 06-16-2025 Comprehensive metabo lic panel Bren Aguilar Kowalski DO Work Phone: Start: 06-16-2025 Urinalysis microscop ic panel - Urine Qualitative by Automated Bren Aguilar Kowalski DO Work Phone: Start: 06-16-2025 Urnls dip stick/tabl et reagent auto microscopy Bren Aguilar Kowalski DO Work Phone: Start: 10-24-2024 Study Interpretation of outside study Suzanne Arroyo EARLY CHILDHOOD LEAD TEACHER-SYSTEMS SUPPORT ENGINEER Work Phone: Start: 10-11-2024 Mammography Rad Film Start: 07-08-2024 Urnls dip stick/tabl et rgnt auto w/o microscopy Odell NUNNC Work Phone: Start: 06-17-2024 Ct abdomen & pelvis w/contrast material Karissa Dossnabor PANDA Work Phone: Start: 06-17-2024 Urinalysis microscop ic panel - Urine Qualitative by Automated Karissa Villalobosabel PANDA Work Phone: Start: 06-17-2024 Urnls dip stick/tabl et reagent auto microscopy Karissa Ellington EDOUARDC Work Phone: Start: 06-17-2024 Comprehensive metabo lic panel Karissa Ellington EDOUARDJonh Work Phone: Start: 04-25-2024 POCT SARS-COV-2/FLU/ RSV PCR SYMPTOMATIC Josh Harris EARLY CHILDHOOD LEAD TEACHERQvolve Work Phone: Start: 02-29-2024 Lipid 1996 panel - S oma or Plasma Josh Harris APRNQvolve Work Phone: Start: 08-18-2022 Lipid 1996 panel - S oma or Plasma James Sahu DO Work Phone: Start: 10-23-2020 Iaadiadoo influenza [facility] Start: 10-23-2020 COVID-19, MOLECULAR Gar tatiana Garcia Work Phone: Start: 10-23-2020 Urnls dip stick/tabl et rgnt auto w/o microscopy [facility] Start: 10-23-2020 Blood gases any comb ination ph pco2 po2 co2 hco3 [facility] Start: 10-23-2020 Albumin serum plasma /whole blood [facility] Start: 10-23-2020 Blood count complete auto&auto difrntl wbc Malcom Garcia Work Phone: Start: 12-31-2017 Mammography James richeyuser DO Work Phone: Start: 12-19-2016 Lumbar puncture CHAOHUA SUKHDEV Procedure on back James moralez Work Phone: Plan of Treatment Date Care Activity Detail Author Start: 10-11-2027 Screening for malign ant neoplasm of colon [facility] Start: 10-11-2025 Screening for malign ant neoplasm of breast Mammogram [facility] Start: 09-07-2025 End: 09-07-2025 Patient encounter procedure 09/07/2025 10:50 AM EST Office Visit [facility] [address] [place] [address] Suzanne Arroyo, EARLY CHILDHOOD LEAD TEACHER-SYSTEMS SUPPORT ENGINEER [address] [facility], [address] [place] [address] [facility] Start: 07-19-2025 Hemoglobin A1c measurement Diabetes: Hemoglobin A1C [facility] Start: 06-07-2025 End: 06-07-2026 CBC W Auto Differential panel - Blood CBC and Auto Differential Lab Routine Pre-operative clearance Expected: 06/07/2025 (Approximate), Expires: 06/07/2026 [facility] Work Phone: Comment on above: Expected: 06/07/2025 (Approximate), Expires: 06/07/2026 Start: 06-07-2025 End: 06-07-2026 Comprehensive metabolic 2000 panel - Serum or Plasma Comprehensive metabolic panel Lab Routine Hyponatremia Expected: 06/07/2025 (Approximate), Expires: 06/07/2026 [facility] Service Area Work Phone: Comment on above: Expected: 06/07/2025 (Approximate), Expires: 06/07/2026 Start: 06-07-2025 End: 06-07-2026 Prothrombin time (PT) Protime-INR Lab Routine Pre-operative clearance Expected: 06/07/2025 (Approximate), Expires: 06/07/2026 [facility] Work Phone: Comment on above: Expected: 06/07/2025 (Approximate), Expires: 06/07/2026 Start: 04-19-2025 End: 04-19-2026 Comprehensive metabolic 2000 panel - Serum or Plasma [facility] Work Phone: Comment on above: Expected: 04/19/2025 (Approximate), Expires: 04/19/2026 Start: 04-19-2025 End: 04-19-2026 Hemoglobin A1c/Hemoglobin.total in Blood [facility] Service Area Work Phone: Comment on above: Expected: 04/19/2025 (Approximate), Expires: 04/19/2026 Start: 04-19-2025 End: 04-19-2026 TSH with reflex to Free T4 if abnormal [facility] Work Phone: Comment on above: Expected: 04/19/2025 (Approximate), Expires: 04/19/2026 Start: 04-10-2025 COVID-19 Vaccine ( season) COVID-19 Vaccine ( season) [facility] Start: 04-10-2025 COVID-19 Vaccine ( season) COVID-19 Vaccine () [facility] Start: 04-10-2025 Influenza vaccination Influenza Vacc ine (#1) [facility] Start: 04-06-2025 End: 04-06-2025 Patient encounter procedure [facility] Start: 03-15-2025 Hemoglobin A1c measurement Diabetes: Hemoglobin A1C [facility] Start: 03-10-2025 Influenza vaccination Influenza Vacc ine (#1) [facility] Start: 02-28-2025 Lipid panel Lipid Panel [facility] Start: 10-11-2024 End: 10-11-2024 Patient encounter procedure 10/11/2024 2:00 PM EST Appointment [address] [phone] [facility] Start: 09-28-2024 End: 09-28-2025 Cologuard colon cancer screening Cologuard colon cancer screening Lab Routine Screening for colon cancer Expected: 09/28/2024 (Approximate), Expires: 09/28/2025 [facility] Service Area Work Phone: Comment on above: Expected: 09/28/2024 (Approximate), Expires: 09/28/2025 Start: 09-28-2024 End: 11-26-2025 DBT Breast - bilateral BI mammo bilateral screening tomosynthesis Imaging Routine Encounter for screening mammogram for malignant neoplasm of breast Expected: 09/28/2024, Expires: 11/26/2025 [facility] Work Phone: Comment on above: Expected: 09/28/2024 , Expires: 11/26/2025 Start: 09-20-2024 Hemoglobin A1c measurement Diabetes: Hemoglobin A1C [facility] Start: 07-26-2024 End: 07-26-2024 Patient encounter procedure 07/26/2024 12:40 PM EST Office Visit [facility] [address] [place] [id number] James Sahu DO [address] [facility] [place] [address] [facility] Start: 07-23-2024 End: 06-23-2025 Basic metabolic 2000 panel - Serum or Plasma Basic metabolic panel Lab Routine Hyponatremia Expected: 07/23/2024 (Approximate), Expires: 06/23/2025 [facility] Service Area Work Phone: Comment on above: Expected: 07/23/2024 (Approximate), Expires: 06/23/2025 Start: 07-21-2024 End: 07-21-2024 Patient encounter procedure 07/21/2024 2:00 PM EST Office Visit [facility] [address] [place] [address] Emilie Cornelius, EARLY CHILDHOOD LEAD TEACHER-SYSTEMS SUPPORT ENGINEER, DNP [address] [place] [address] [address] [facility] Start: 06-09-2024 End: 06-09-2024 Patient encounter procedure 06/09/2024 1:20 PM EDT Office Visit [facility] [address] [place] [phone] James Sahu DO [address] [facility] [place] [address] [facility] Start: 05-31-2024 Hemoglobin A1c measurement Diabetes: Hemoglobin A1C [facility] Start: 04-10-2024 COVID-19 Vaccine ( season) COVID-19 Vaccine () [facility] Start: 04-10-2024 COVID-19 Vaccine () COVID-19 Vaccine () [facility] Start: 04-10-2024 Influenza vaccination Influenza Vacc ine (#1) [facility] Start: 08-18-2023 Lipid panel Lipid Panel [facility] Start: 06-11-2023 Hemoglobin A1c measurement Diabetes: Hemoglobin A1C [facility] Start: 04-15-2023 End: 04-15-2024 Comprehensive metabolic 2000 panel - Serum or Plasma Comprehensive Metabolic Panel Lab Routine Type 2 diabetes mellitus without complication, without long-term current use of insulin (CMS/HCC) Expected: 04/15/2023 (Approximate), Expires: 04/15/2024 [facility] Work Phone: Comment on above: Expected: 04/15/2023 (Approximate), Expires: 04/15/2024 Start: 04-15-2023 End: 04-15-2024 Hemoglobin A1c/Hemoglobin.total in Blood Hemoglobin A1C Lab Routine Type 2 diabetes mellitus without complication, without long-term current use of insulin (CMS/HCC) Expected: 04/15/2023 (Approximate), Expires: 04/15/2024 [facility] Service Area Work Phone: Comment on above: Expected: 04/15/2023 (Approximate), Expires: 04/15/2024 Start: 04-15-2023 End: 04-15-2024 Lipid 1996 panel - Serum or Plasma Lipid Panel Lab Routine Type 2 diabetes mellitus without complication, without long-term current use of insulin (CMS/HCC) Expected: 04/15/2023 (Approximate), Expires: 04/15/2024 [facility] Work Phone: Comment on above: Expected: 04/15/2023 (Approximate), Expires: 04/15/2024 Start: 04-10-2023 Influenza vaccination Influenza Vacc ine (#1) [facility] Start: 11-20-2022 FUV, Provider: James Sahu, Status: Pen, Time: 10:40 AM FUV, Provider: James Sahu, Status: Pen, Time: 10:40 AM [facility] Work Phone: Start: 10-02-2022 FUV, Provider: James Sahu, Status: Pen, Time: 3:00 PM FUV, Provider: James Sahu, Status: Pen, Time: 3:00 PM [facility] Work Phone: Start: 08-21-2022 FUV, Provider: James Sahu, Status: Pen, Time: 3:20 PM FUV, Provider: James Sahu, Status: Pen, Time: 3:20 PM [facility] Work Phone: Start: 08-18-2022 FUV, Provider: Emilie Cornelius, Status: Pen, Time: 10:00 AM FUV, Provider: Emilie Cornelius, Status: Pen, Time: 10:00 AM [id number] [address] DO Work Phone: Start: 07-10-2022 FUV, Provider: Emilie Cornelius, Status: Pen, Time: 2:15 PM FUV, Provider: Emilie Cornelius, Status: Pen, Time: 2:15 PM MO-Dkuhasz-Usyzoac 230 DO Work Phone: Start: 06-12-2022 FUV, Provider: Emilie Cornelius, Status: Pen, Time: 3:30 PM FUV, Provider: Emilie Cornelius, Status: Pen, Time: 3:30 PM GP-Utrbjyb-Ypvzapr 230 DO Work Phone: Start: 05-29-2022 FUV, Provider: Young,Emilie, Status: Pen, Time: 10:00 AM FUV, Provider: Emilie Cornelius, Status: Pen, Time: 10:00 AM [facility] Work Phone: Start: 05-23-2022 NPV, Provider: Emilie Cornelius, Status: Pen, Time: 10:30 AM NPV, Provider: Emilie Cornelius, Status: Pen, Time: 10:30 AM [facility] Work Phone: Start: 05-19-2022 NPV, Provider: Tom Cornelius, Status: Pen, Time: 10:30 AM NPV, Provider: Tom Cornelius, Status: Pen, Time: 10:30 AM [facility] 3 DO Work Phone: Start: 05-16-2022 FUVHOSP, Provider: James Sahu, Status: Pen, Time: 1:20 PM FUVHOSP, Provider: James Sahu, Status: Pen, Time: 1:20 PM [facility] 3 DO Work Phone: Start: 12-24-2021 Urine screening for protein Diabetes: Urine Protein Screening [facility] Start: 12-10-2021 FUV, Provider: James Sahu, Status: Pen, Time: 2:20 PM FUV, Provider: James Sahu, Status: Pen, Time: 2:20 PM [facility] Work Phone: Start: 2019 Zoster Vaccines (1 of 2) Zoste r Vaccines (1 of 2) [facility] Start: 12-31-2018 Screening for malign ant neoplasm of breast Mammogram [facility] Start: 1991 DTaP/Tdap/Td Vaccine s (1 - Tdap) DTaP/Tdap/Td Vaccines (1 - Tdap) [facility] Start: 1990 Screening for malign ant neoplasm of cervix [facility] Start: 02-14-1988 Hepatitis B Vaccines (1 of 3 - 19+ 3-dose series) Hepatitis B Vaccines (1 of 3 - 19+ 3-dose series) [facility] Start: 02-14-1988 Pneumococcal vaccination Pneum ococcal Vaccine (1 of 2 - PCV) [facility] Start: 1987 Hepatitis C screening Hepatitis C Sc yasmany [facility] Start: 1979 Diabetic foot examination Diabetes: Foot Exam [facility] Start: 1979 Glaucoma screening Diabetes: R etinopathy Screening [facility] Start: 1975 Pneumococcal Vaccine : Pediatrics (0 to 5 Years) and At-Risk Patients (6 to 64 Years) (1 - PCV) Pneumococcal Vaccine: Pediatrics (0 to 5 Years) and At-Risk Patients (6 to 64 Years) (1 - PCV) [facility] Start: 1975 Pneumococcal Vaccine : Pediatrics (0 to 5 Years) and At-Risk Patients (6 to 64 Years) (1 of 2 - PCV) Pneumococcal Vaccine: Pediatrics (0 to 5 Years) and At-Risk Patients (6 to 64 Years) (1 of 2 - PCV) [facility] Start: 1970 MMR Vaccines (1 of 1 - Standard series) MMR Vaccines (1 of 1 - Standard series) [facility] Start: 1969 COVID-19 Vaccine (#1) COVID-19 Vacci ne (#1) [facility] Start: 1969 Hepatitis B Vaccines (1 of 3 - 3-dose series) Hepatitis B Vaccines (1 of 3 - 3-dose series) [facility] Start: 1969 HIV screening HIV Screening [facility] Start: 1969 Screening for malign ant neoplasm of colon [facility] Start: 1969 Yearly Adult Physical Yearly Adult P hysical [facility] End: 06-17-2024 Bacteria identified in Urine by Culture [facility] Work Phone: Comment on above: Once (Lab) for 1 Occ urrences starting 06/17/2024 until 06/17/2024 Bacteria identified in Urine by Culture Urine Culture Microbiology Routine Acute cystitis without hematuria Dysuria 07/08/2024 10:51 AM EST [facility] Service Area Work Phone: End: 06-16-2025 Bacteria identified in Urine by Culture Urine Culture Microbiology Routine Once (Lab) for 1 Occurrences starting 06/16/2025 until 06/16/2025 [facility] Work Phone: Comment on above: Once (Lab) for 1 Occ urrences starting 06/16/2025 until 06/16/2025 Bacteria identified in Urine by Culture Urine Culture Microbiology STAT 06/16/2025 1:05 AM EST [facility] Work Phone: End: 10-11-2024 DBT Breast - bilateral [facility] Service Area Work Phone: Comment on above: Once for 1 Occurrenc es starting 10/11/2024 until 10/11/2024 End: 06-17-2024 Extra Urine Childress Tube [facility] Work Phone: Comment on above: Once for 1 Occurrenc es starting 06/17/2024 until 06/17/2024 End: 06-16-2025 Extra Urine Childress Tube Extra Urine Childress Tube Lab Timed Once for 1 Occurrences starting 06/16/2025 until 06/16/2025 [facility] Work Phone: Comment on above: Once for 1 Occurrenc es starting 06/16/2025 until 06/16/2025 End: 06-17-2024 Urinalysis complete W Reflex Culture panel - Urine [facility] Service Area Work Phone: Comment on above: Once (Lab) for 1 Occ urrences starting 06/17/2024 until 06/17/2024 End: 06-16-2025 Urinalysis complete W Reflex Culture panel - Urine Urinalysis with Reflex Culture Lab STAT Once (Lab) for 1 Occurrences starting 06/16/2025 until 06/16/2025 [facility] Service Area Work Phone: Comment on above: Once (Lab) for 1 Occ urrences starting 06/16/2025 until 06/16/2025 Urinalysis complete W Reflex Culture panel - Urine Urinalysis with Reflex Culture Lab STAT 06/16/2025 1:05 AM EST [facility] Work Phone: Payers Date Payer Category Payer Managed Care (Private) [id number] [id number] 2022 Unknown 2018 Self-pay 2014 Unknown [employer] S [employer]PER[employer] PPO [id number] 2014-Present [id number] 2014 Unknown [id number] 1969 Unknown [id number] 2.16.840.1.425245.3.579.2.9 02 1969 Unknown [id number] 2.16.840.1.668553.3.579.2.1 069 1969 Unknown [id number] 2.16.840.1.258141.3.579.2.3 56 1969 Unknown [id number] 2.16.840.1.206145.3.579.2.3 56 1969 Unknown [id number] 2.16.840.1.488276.3.579.2.3 56 1969 Unknown [id number] 2.16.840.1.912962.3.579.2.3 56 1969 Unknown [id number] 2.16.840.1.560695.3.579.2.3 56 1969 Unknown [id number] 2.16.840.1.347694.3.579.2.3 56 1969 Unknown [id number] 2.16.840.1.431940.3.579.2.3 56 1969 Unknown [id number] 2.16.840.1.640359.3.579.2.3 56 1969 Unknown [id number] 2.16.840.1.584817.3.579.2.1 245 1969 Unknown [id number] 2.16.840.1.716859.3.579.2.1 245 1969 Unknown [id number] 2.16.840.1.808870.3.579.2.1 244 1969 Unknown [id number] 2.16.840.1.632538.3.579.2.1 244 1969 Unknown [id number] 2.16.840.1.946298.3.579.2.1 244 1969 Unknown [id number] 2.16.840.1.013159.3.579.2.1 244 1969 Unknown [id number] 2.16.840.1.286300.3.579.2.1 243 1969 Unknown [id number] 2.16.840.1.658753.3.579.2.1 243 1969 Unknown [id number] 2.16.840.1.875796.3.579.2.1 243 Unknown [id number] 2.16.840.1.024709.3.579.2.9 21 Unknown [id number] 2.16.840.1.970880.3.579.2.4 62 Unknown [id number] 2.16.840.1.906982.3.579.2.4 62 Unknown [id number] 2.16.840.1.387499.3.579.2.4 62 Unknown [id number] 2.16.840.1.550798.3.579.2.4 62 Unknown [id number] 2.16.840.1.002786.3.579.2.4 62 Unknown [id number] 2.16.840.1.244904.3.579.2.4 62 Unknown [id number] 2.16.840.1.334129.3.579.2.4 62 Unknown [id number] 2.16.840.1.731762.3.579.2.4 62 Unknown [id number] 2.16.840.1.877927.3.579.2.4 62 Unknown [id number] 2.16.840.1.034954.3.579.2.4 62 Unknown [id number] 2.16.840.1.677818.3.579.2.4 62 Unknown [id number] 2.16.840.1.519220.3.579.2.4 62 Unknown [id number] 2.16.840.1.377986.3.579.2.4 62 Unknown [id number] 2.16.840.1.818993.3.579.2.4 62 Unknown [id number] 2.16.840.1.085396.3.579.2.4 62 Unknown [id number] 2.16.840.1.955845.3.579.2.4 62 Unknown [id number] 2.16.840.1.661350.3.579.2.4 62 Unknown [id number] 2.16.840.1.801803.3.579.2.4 62 Unknown [id number] 2.16.840.1.997376.3.579.2.4 62 Unknown [id number] 2.16.840.1.101541.3.579.2.4 62 Unknown [id number] 2.16.840.1.811825.3.579.2.4 62 Social History Date Type Detail Facility Unknown if ever smoked [facility] Start: 10-23-2020 End: 12-01-2023 Tobacco smoking status NHIS Current every day smoker [facility] History of tobacco use Cigarette Smoker [facility] Start: 10-23-2020 End: 06-07-2025 Cigarettes smoked current (pack per day) - Reported [facility] Start: 10-23-2020 End: 06-07-2025 Alcohol intake Current drinker of alcohol (finding) [facility] Start: 1970 Sex Assigned At Not on file [facility] Start: 04-03-2024 End: 10-11-2024 Exposure to SARS-CoV-2 (event) Not sure [facility] Start: 04-15-2023 End: 06-23-2024 Tobacco use and exposure Smokeless tobacco non-user [facility] Work Phone: Start: 04-15-2023 End: 06-07-2025 Tobacco use panel [facility] Work Phone: Start: 06-23-2024 Tobacco smoking status NHIS Ex-smoker [facility] History of tobacco use [facility] Start: 1970 Sex assigned at Female [facility] Start: 10-11-2024 Gender identity Identifies as female gender (finding) [facility] Work Phone: Start: 10-11-2024 Sexual orientation Heterosexual (finding) [facility] Work Phone: Start: 04-19-2025 Alcohol Comment rarely [facility] Work Phone: Start: 07-05-2022 Sex Female [facility] Start: 07-05-2022 Sex Female (finding) [facility] Medical Equipment Procedure Code Equipment Code Equipment Origin al Text Equipment Identifier Dates twice a day. [id number] Start: 12-05-2021 2 strips 2 times a day as needed (Blood sugars). [id number] Start: 11-26-2023 TEST SUGARS 1-2 TIMES DAILY [id number] Start: 11-26-2023 2 strips once da grupo as needed (Blood sugars). [id number] Start: 06-21-2024 TEST SUGARS 2 TI MES DAILY [id number] Start: 06-21-2024 Functional Status Date Assessment Result Facility 06-16-2025 Functional status [facility] 06-16-2025 [facility] Work Phone: 06-16-2025 [facility] s everity rating scale screener - recent [C-SSRS] [facility] Work Phone: 06-07-2025 Functional status 139/81 [facility] Work Phone: 06-07-2025 Vital signs 70 06/07/2025 10 :17 AM Emily Ochoa MA [facility] Work Phone: 06-07-2025 Patient Health [facility] ionnaire 2 item (PHQ-2) [Reported] [facility] Work Phone: 06-07-2025 [facility] Work Phone: 04-19-2025 Patient Health [facility] ionnaire 2 item (PHQ-2) [Reported] [facility] Work Phone: [facility] Work Phone: [facility] Clinical Notes 08-29-2021 to 06-16-2025 Bren Kowalski, DO - 06/16/2025 12:50 AM Brittany Kowalski, DO - 06/16/2025 12:50 AM Jim Arroyo APRN-SYSTEMS SUPPORT ENGINEER - 06/07/2025 10:10 AM Kailee Koch APRN-[facility] - 04/19/2025 2:20 PM EDTAttachments Note Date & Type Note Facility 06-16-2025 Physician Emergency department Note HPI Chief Complaint Patient presents with Flank Pain 55-year-old female presents with chief complaint of polyuria and some dysuria. Patient had some type of back surgery done several days ago and feels that this is related to a possible bladder infection. Patient denies any fever or chills at present. The patient was given 1 g of Rocephin and 15 mg of IV Toradol. She has also had IV fluids. Patient states she feels better after treatment. I did go over the results of the blood work and CAT scan with the patient. She is improved upon discharge. I have instructed her to call her family doctor today for follow-up sooner than 2 weeks. History provided by: Patient Patient History Medical History[1] Surgical History[2] Family History[3] Social History[4] Physical Exam ED Triage Vitals Temp Pulse Resp BP -- -- -- -- SpO2 Temp src Heart Rate Source Patient Position -- -- -- -- BP Location FiO2 (%) -- -- Physical Exam Vitals and nursing note reviewed. Constitutional: Appearance: Normal appearance. HENT: Head: Normocephalic and atraumatic. Right Ear: Tympanic membrane normal. Left Ear: Tympanic membrane normal. Nose: Nose normal. Mouth/Throat: Mouth: Mucous membranes are moist. Eyes: Extraocular Movements: Extraocular movements intact. Pupils: Pupils are equal, round, and reactive to light. Cardiovascular: Rate and Rhythm: Normal rate. Pulmonary: Effort: Pulmonary effort is normal. Breath sounds: Normal breath sounds. Abdominal: General: Abdomen is flat. Palpations: Abdomen is soft. Tenderness: There is abdominal tenderness. Comments: Mild suprapubic tenderness to palpation. Dressing in the left flank area with no erythema or tenderness to palpation. Musculoskeletal: General: Normal range of motion. Cervical back: Normal range of motion. Skin: General: Skin is warm and dry. Neurological: General: No focal deficit present. Mental Status: She is alert and oriented to person, place, and time. Labs Reviewed CBC WITH AUTO DIFFERENTIAL - Abnormal Result Value WBC 10.0 nRBC 0.0 RBC 3.44 (*) Hemoglobin 10.5 (*) Hematocrit 29.4 (*) MCV 86 MCH 30.5 MCHC 35.7 RDW 11.9 Platelets 235 Neutrophils % 70.3 Immature Granulocytes %, Automated 0.5 Lymphocytes % 19.4 Monocytes % 8.4 Eosinophils % 1.1 Basophils % 0.3 Neutrophils Absolute 7.01 Immature Granulocytes Absolute, Automated 0.05 Lymphocytes Absolute 1.94 Monocytes Absolute 0.84 Eosinophils Absolute 0.11 Basophils Absolute 0.03 COMPREHENSIVE METABOLIC PANEL - Abnormal Glucose 209 (*) Sodium 126 (*) Potassium 3.7 Chloride 91 (*) Bicarbonate 26 Anion Gap 13 Urea Nitrogen 9 Creatinine 0.43 (*) eGFR >90 Calcium 8.9 Albumin 3.7 Alkaline Phosphatase 54 Total Protein 6.4 AST 16 Bilirubin, Total 0.3 ALT 17 URINALYSIS WITH REFLEX CULTURE - Abnormal Color, Urine Light-Yellow Appearance, Urine Clear Specific [place], Urine 1.011 pH, Urine 7.0 Protein, Urine 10 (TRACE) Glucose, Urine 200 (2+) (*) Blood, Urine NEGATIVE Ketones, Urine NEGATIVE Bilirubin, Urine NEGATIVE Urobilinogen, Urine Normal Nitrite, Urine NEGATIVE Leukocyte Esterase, Urine 75 Paulina/uL (*) MICROSCOPIC ONLY, URINE - Abnormal WBC, Urine 6-10 (*) RBC, Urine 1-2 Squamous Epithelial Cells, Urine 1-9 (SPARSE) Bacteria, Urine 1+ (*) Budding Yeast, Urine PRESENT (*) Amorphous Crystals, Urine 1+ LACTATE - Normal Lactate 1.9 Narrative: Venipuncture immediately after or during the administration of Metamizole may lead to falsely low results. Testing should be performed immediately prior to Metamizole dosing. URINE CULTURE URINALYSIS WITH REFLEX CULTURE Narrative: The following orders were created for panel order Urinalysis with Reflex Culture. Procedure Abnormality Status --------- ------ Urinalysis with Reflex C...[[id number]] Abnormal Final result Extra Urine Childress Tube[[id number]] Please view results for these tests on the individual orders. EXTRA URINE CHILDRESS TUBE CT abdomen pelvis w IV contrast Final Result 1. Postsurgical change related to recent left lateral spinal fusion extending from L2-L4 with intact appearing hardware. Gas and fat stranding within the left retroperitoneal soft tissues compatible with recent surgery. No distinct organized fluid collection. 2. Hepatic steatosis and hepatomegaly. 3. Additional chronic/incidental findings described above. Signed by: Randy Painter 06/16/2025 3:11 AM Dictation workstation: [id number] ED Course & MDM Diagnoses as of 06/16/25 0317 UTI (urinary tract infection), uncomplicated Periumbilical abdominal pain No data recorded Medical Decision Making 1 take medication as prescribed 2 increase fluids 3 resume home medications 4 call family medical doctor today for follow-up, if symptoms worsen return to ED. Procedure Procedures [1] Past Medical History: Diagnosis Date Bipolar depression (Multi) 09/18/2022 Fibrocystic breast Decades ago Goiter 09/18/2022 History of recurrent ear infection 09/18/2022 Hyponatremia 09/18/2022 Otitis externa 09/18/2022 Personal history of other endocrine, nutritional and metabolic disease History of diabetes mellitus Personal history of other endocrine, nutritional and metabolic disease History of thyroid disorder Personal history of transient ischemic attack (TIA), and cerebral infarction without residual deficits History of cerebrovascular accident [2] Past Surgical History: Procedure Laterality Date OTHER SURGICAL HISTORY 09/10/2021 Back surgery [3] Family History Problem Relation Name Age of Onset Breast cancer Paternal Grandmother Marisel mendoza 66 Breast cancer Father's Sister 37 [4] Social History Tobacco Use Smoking status: Former Current packs/day: 0.25 Types: Cigarettes Smokeless tobacco: Never Vaping Use Vaping status: Every Day Substances: Nicotine Substance Use Topics Alcohol use: Yes Comment: rarely Drug use: Never Bren Kowalski DO 06/16/25 0318 [facility] Work Phone: 06-16-2025 Emergency department Note HPI Chief Complaint Patient presents with Flank Pain 55-year-old female presents with chief complaint of polyuria and some dysuria. Patient had some type of back surgery done several days ago and feels that this is related to a possible bladder infection. Patient denies any fever or chills at present. The patient was given 1 g of Rocephin and 15 mg of IV Toradol. She has also had IV fluids. Patient states she feels better after treatment. I did go over the results of the blood work and CAT scan with the patient. She is improved upon discharge. I have instructed her to call her family doctor today for follow-up sooner than 2 weeks. History provided by: Patient Patient History Medical History[1] Surgical History[2] Family History[3] Social History[4] Physical Exam ED Triage Vitals Temp Pulse Resp BP -- -- -- -- SpO2 Temp src Heart Rate Source Patient Position -- -- -- -- BP Location FiO2 (%) -- -- Physical Exam Vitals and nursing note reviewed. Constitutional: Appearance: Normal appearance. HENT: Head: Normocephalic and atraumatic. Right Ear: Tympanic membrane normal. Left Ear: Tympanic membrane normal. Nose: Nose normal. Mouth/Throat: Mouth: Mucous membranes are moist. Eyes: Extraocular Movements: Extraocular movements intact. Pupils: Pupils are equal, round, and reactive to light. Cardiovascular: Rate and Rhythm: Normal rate. Pulmonary: Effort: Pulmonary effort is normal. Breath sounds: Normal breath sounds. Abdominal: General: Abdomen is flat. Palpations: Abdomen is soft. Tenderness: There is abdominal tenderness. Comments: Mild suprapubic tenderness to palpation. Dressing in the left flank area with no erythema or tenderness to palpation. Musculoskeletal: General: Normal range of motion. Cervical back: Normal range of motion. Skin: General: Skin is warm and dry. Neurological: General: No focal deficit present. Mental Status: She is alert and oriented to person, place, and time. Labs Reviewed CBC WITH AUTO DIFFERENTIAL - Abnormal Result Value WBC 10.0 nRBC 0.0 RBC 3.44 (*) Hemoglobin 10.5 (*) Hematocrit 29.4 (*) MCV 86 MCH 30.5 MCHC 35.7 RDW 11.9 Platelets 235 Neutrophils % 70.3 Immature Granulocytes %, Automated 0.5 Lymphocytes % 19.4 Monocytes % 8.4 Eosinophils % 1.1 Basophils % 0.3 Neutrophils Absolute 7.01 Immature Granulocytes Absolute, Automated 0.05 Lymphocytes Absolute 1.94 Monocytes Absolute 0.84 Eosinophils Absolute 0.11 Basophils Absolute 0.03 COMPREHENSIVE METABOLIC PANEL - Abnormal Glucose 209 (*) Sodium 126 (*) Potassium 3.7 Chloride 91 (*) Bicarbonate 26 Anion Gap 13 Urea Nitrogen 9 Creatinine 0.43 (*) eGFR >90 Calcium 8.9 Albumin 3.7 Alkaline Phosphatase 54 Total Protein 6.4 AST 16 Bilirubin, Total 0.3 ALT 17 URINALYSIS WITH REFLEX CULTURE - Abnormal Color, Urine Light-Yellow Appearance, Urine Clear Specific [place], Urine 1.011 pH, Urine 7.0 Protein, Urine 10 (TRACE) Glucose, Urine 200 (2+) (*) Blood, Urine NEGATIVE Ketones, Urine NEGATIVE Bilirubin, Urine NEGATIVE Urobilinogen, Urine Normal Nitrite, Urine NEGATIVE Leukocyte Esterase, Urine 75 Paulina/uL (*) MICROSCOPIC ONLY, URINE - Abnormal WBC, Urine 6-10 (*) RBC, Urine 1-2 Squamous Epithelial Cells, Urine 1-9 (SPARSE) Bacteria, Urine 1+ (*) Budding Yeast, Urine PRESENT (*) Amorphous Crystals, Urine 1+ LACTATE - Normal Lactate 1.9 Narrative: Venipuncture immediately after or during the administration of Metamizole may lead to falsely low results. Testing should be performed immediately prior to Metamizole dosing. URINE CULTURE URINALYSIS WITH REFLEX CULTURE Narrative: The following orders were created for panel order Urinalysis with Reflex Culture. Procedure Abnormality Status --------- ------ Urinalysis with Reflex C...[[id number]] Abnormal Final result Extra Urine Childress Tube[[id number]] Please view results for these tests on the individual orders. EXTRA URINE CHILDRESS TUBE CT abdomen pelvis w IV contrast Final Result 1. Postsurgical change related to recent left lateral spinal fusion extending from L2-L4 with intact appearing hardware. Gas and fat stranding within the left retroperitoneal soft tissues compatible with recent surgery. No distinct organized fluid collection. 2. Hepatic steatosis and hepatomegaly. 3. Additional chronic/incidental findings described above. Signed by: Randy Painter 06/16/2025 3:11 AM Dictation workstation: [id number] ED Course & MDM Diagnoses as of 06/16/25316 UTI (urinary tract infection), uncomplicated Periumbilical abdominal pain No data recorded Medical Decision Making 1 take medication as prescribed 2 increase fluids 3 resume home medications 4 call family medical doctor today for follow-up, if symptoms worsen return to ED. Procedure Procedures [1] Past Medical History: Diagnosis Date Bipolar depression (Multi) 09/18/2022 Fibrocystic breast Decades ago Goiter 09/18/2022 History of recurrent ear infection 09/18/2022 Hyponatremia 09/18/2022 Otitis externa 09/18/2022 Personal history of other endocrine, nutritional and metabolic disease History of diabetes mellitus Personal history of other endocrine, nutritional and metabolic disease History of thyroid disorder Personal history of transient ischemic attack (TIA), and cerebral infarction without residual deficits History of cerebrovascular accident [2] Past Surgical History: Procedure Laterality Date OTHER SURGICAL HISTORY 09/10/2021 Back surgery [3] Family History Problem Relation Name Age of Onset Breast cancer Paternal Grandmother Marisel mendoza 66 Breast cancer Father's Sister 37 [4] Social History Tobacco Use Smoking status: Former Current packs/day: 0.25 Types: Cigarettes Smokeless tobacco: Never Vaping Use Vaping status: Every Day Substances: Nicotine Substance Use Topics Alcohol use: Yes Comment: rarely Drug use: Never Bren Kowalski DO 06/16/25317 documented in this encounter [facility] Work Phone: 06-12-2025 Note [facility] Medical Records Department [address] [place] [address] History Physical Exam 06/12/25 0716 MR#: [id number] Acct: [id number] Name: REINIER MENDOZA Rep #: [id number] : 1970 55 From: Yair Benedict MD PCP: REGGIE Arias Status:[facility] Location: [place] [address] History and Physical Date of Admission: 06/12/25 MR#: [id number] Acct: [id number] Name: REINIER MENDOZA Rep #: [id number] : 1970 Provider: Dr. Yair Benedict MD Age/Sex: 55/F Location: [facility] Status: Signed Intake Vital Signs 03/23/2513:41 05/23/2513:49 06/08/2514:55 Height 5 ft 6.5 in 5 ft 6.5 in 5 ft 6.5 in Weight: 235 lb 2 oz 236 lb BMI 37.3 37.5 Intake Visit Reasons: lumbar spine Chief Complaint: Lumbar spine pre op Accompanied by: Self Is patient in pain?: Yes Pain scale (1-10): 5 Allergies azithromycin Allergy (Mild, Verified 06/08/25 14:59) Hives Sulfa (Sulfonamide Antibiotics) Allergy (Mild, Verified 06/08/25 14:59) Other Medications ???Medication ???Instructions ???Recorded ???Confirmed ???Type carvedilol 6.25 mg tablet 12.5 mg PO BID HEART 09/22/22 06/08/25 History losartan 100 mg tablet 100 mg PO DAILY BP 09/22/22 06/08/25 History multivitamin 1 tab PO DAILY SUPPLEMENT 09/22/22 06/08/25 Histor y aspirin 81 mg tablet 81 mg PO DAILY HEART HEALTH 11/20/23 06/08/25 Hist ory magnesium 250 mg tablet 500 mg PO QHS CRAMPS 11/20/23 06/08/25 History nifedipine 30 mg tablet,extended 90 mg PO DAILY BP 11/20/23 06/08/25 History release turmeric root extract 500 mg 1,000 mg PO BID SUPPLEMENT 11/20/23 06/08/25 Histo ry capsule metformin 500 mg tablet,extended 1,000 mg PO BID DIABETES 12/17/23 06/08/25 History release 24 hr melatonin 3 mg capsule 5 mg PO HS PRN sleep 01/05/25 06/08/25 History bupropion HCl 300 mg 24 hr tablet, 300 mg PO QAM PTSD 30 days #30 tabs 05/23/2506/08 Rx extended release venlafaxine 150 mg 150 mg PO DAILY BIPOLAR 30 days 05/23/25 06/08/25 Rx capsule,extended release 24 hr #30 caps INNO CLEANSE 2 cap PO DAILY FIBER 05/26/25 06/08/25 History NMNH 2 cap PO DAILY SUPPLEMENT 05/26/25 06/08/25 Histor y aripiprazole 15 mg tablet 15 mg PO QHS BIPOLAR 05/26/25 06/08/25 History diclofenac potassium 50 mg tablet 50 mg PO TID PRN pain 05/26/25 06/08/25 History omega 9-ink-ubz-fish oil 1,200 mg 2 cap PO DAILY SUPPLEMENT 05/26/25 06/08/25 Histor y (144 mg-216 mg) capsule (Fish Oil) pioglitazone 30 mg tablet 30 mg PO QHS DIABETES 05/26/25 06/08/25 History vitamin D3 125 mcg (5,000 1 cap PO DAILY SUPPLEMENT 05/26/25 06/08/25 Histor y unit)-vitamin K2 100 mcg capsule carbamazepine 200 mg tablet 300 mg (1.5 x 200 mg) PO BID 05/31/25 06/08/25 Rx BIPOLAR 30 days #90 tabs Have you fallen in the past year?: Yes [facility] Medical History (Updated 06/08/25 @ 15:43 by Karen Henry RN) Lumbar stenosis with neurogenic claudication Obesity (BMI 30-39.9) Loss of hearing Wears glasses Post-menopausal Marijuana use Thyroid disease Ambulates with cane Walker as ambulation aid High cholesterol Back pain TIA (transient ischemic attack) Syncope Dietary restriction Vapes nicotine containing substance Former smoker CPAP (continuous positive airway pressure) dependence History of pain when walking History of echocardiogram Lumbar stenosis Cervical radiculopathy PTSD (post-traumatic stress disorder) Bipolar 1 disorder Vitamin D deficiency Neuropathy Hypertension Diabetes type 2, controlled Chronic bronchitis Arthritis Surgical History Hx of colonoscopy Hx of dilation and curettage Hx of decompressive lumbar laminectomy History of lumbar fusion Family History Other Alcoholism Anxiety Arthritis defect Breast cancer CVA (cerebral vascular accident) Cancer Depression Diabetes Hypertension Mental disorder Myocardial infarction Suicide attempt Social History Smoking Status: Former smoker Smokeless tobacco user: other alcohol intake: current alcohol intake frequency: other details: Rarley 3-4 a year substance use type: does not use HPI lumbar spine Details: This documentation accurately reflects the service provided and the decisions made by me, Dr. Yair Benedict MD 06/08/25 8228. Part of today???s visit was documented by Maliha Mckeon MA, acting as scribe. REINIER MENDOZA is a 55 year old F here today for lumbar spine pre op. She is scheduled for L2-4 anterior and posterior f (more content not included)... [facility] 06-07-2025 History of Present illness Narrative Subjective Patient ID: Reinier Mendoza is a 55 y.o. female who presents for Pre-op Exam (Scheduled for 06/12). HPI Here today for surgical clearance, surgery is scheduled for 06/[address] Wynn in [place] she is getting an L2-L4 fusion. In April her BP was elevated in the office and her coreg was increased to 12.5 BID. She follows with psych in [place] for bipolar, she tried to reduce her Carbamezapine dose and went into a manic state, that is not a treatment option, will consider lithium next. Due to hyponatremia we may need to start a sodium tablet. Per he chart she was diagnosed with SIADH at one point, will order lab work after this back surgery is complete. Review of Systems Constitutional: Negative for chills, fatigue and fever. Respiratory: Negative for cough and shortness of breath. Neurological: Negative for dizziness, seizures, light-headedness, numbness and headaches. Objective BP 139/81 (Patient Position: Sitting) Pulse 70 Ht 1.689 m (5' 6.5") Wt 107 kg (236 lb 8 oz) BMI 37.60 kg/m Physical Exam Cardiovascular: Rate and Rhythm: Normal rate and regular rhythm. Neurological: Mental Status: She is alert and oriented to person, place, and time. Assessment/Plan Problem List Items Addressed This Visit ICD-10-CM HTN (hypertension) - Primary I10 Relevant Medications valsartan (Diovan) 160 mg tablet Hyponatremia E87.1 Relevant Orders Comprehensive metabolic panel Other Visit Diagnoses Codes Pre-operative clearance Z01.818 Relevant Orders CBC and Auto Differential Protime-INR HTN -Continue coreg 12.5 BID -switch losartan to valsartan -continue nifedipine 90 mg daily Hyponatremia -CMP ordered -consider sodium tablets if still low -likely due to Carbamezapine dose, psych in [place] just reduced her dose and she got manic, so that is not an option for treatment -has seen nephrology in the past and was diagnosed hyponatremia due to medication Pending lab work will addend this note for surgical clearance documented in this encounter [facility] Work Phone: 04-19-2025 History of Present illness Narrative Subjective Patient ID: Reinier Mendoza is a 55 y.o. female who presents for Follow-up (6 month follow up needs labs order/PHQ2/9:18). 55 yo female patient presents for 6 mo follow up. She is having surgery on her lumbar spine and needs to get her BS and BP down. States she has been eating too much lately. States she lost a significant amt of weight when she was drinking protein shakes and she restarted this diet plan. Shake in afternoon and evening meal. Discussed proper nutrition. Review of Systems Constitutional: Positive for appetite change. Negative for chills, fatigue and fever. HENT: Negative. Respiratory: Negative. Cardiovascular: Negative. Gastrointestinal: Negative. Endocrine: Negative for polydipsia, polyphagia and polyuria. Genitourinary: Negative. Musculoskeletal: Positive for arthralgias. Psychiatric/Behavioral: The patient is nervous/anxious. Objective Physical Exam Vitals and nursing note reviewed. Constitutional: General: She is not in acute distress. HENT: Head: Normocephalic. Cardiovascular: Rate and Rhythm: Normal rate and regular rhythm. Pulses: Normal pulses. Heart sounds: Normal heart sounds. No murmur heard. No friction rub. No gallop. Pulmonary: Effort: Pulmonary effort is normal. Breath sounds: Normal breath sounds. No wheezing, rhonchi or rales. Abdominal: General: Bowel sounds are normal. Musculoskeletal: Right lower leg: No edema. Left lower leg: No edema. Skin: General: Skin is warm and dry. Neurological: Mental Status: She is alert and oriented to person, place, and time. Psychiatric: Mood and Affect: Mood is anxious. BP (!) 169/96 Pulse 78 Ht 1.689 m (5' 6.5") Wt 111 kg (245 lb 11.2 oz) SpO2 97% BMI 39.06 kg/m Current Medications[1] Medical History[2] Surgical History[3] Family History[4] Assessment/Plan Problem List Items Addressed This Visit Diabetes (Multi) - Primary Relevant Medications omega-3 acid ethyl esters (Lovaza) 1 gram capsule Other Relevant Orders Hemoglobin A1c Comprehensive metabolic panel TSH with reflex to Free T4 if abnormal HTN (hypertension) Relevant Medications carvedilol (Coreg) 12.5 mg tablet Htn: Will have her increase her Coreg to 12.5mg bid and monitor bp at home. Follow up in 2 wks for htn. [1] Current Outpatient Medications: acetaminophen (Tylenol) 500 mg tablet, Take 2 tablets (1,000 mg) by mouth every 6 hours if needed for mild pain (1 - 3)., Disp: , Rfl: ARIPiprazole (Abilify) 15 mg tablet, Take 0.5 tablets (7.5 mg) by mouth once daily., Disp: , Rfl: ascorbic acid (Vitamin C) 1,000 mg tablet, Take 1 tablet (1,000 mg) by mouth once daily., Disp: , Rfl: aspirin 81 mg EC tablet, Take 1 tablet (81 mg) by mouth once daily., Disp: , Rfl: blood sugar diagnostic (Accu-Chek Guide test strips) strip, 2 strips once daily as needed (Blood sugars)., Disp: 100 strip, Rfl: 11 buPROPion XL (Wellbutrin XL) 300 mg 24 hr tablet, Take 1 tablet (300 mg) by mouth once daily in the morning., Disp: , Rfl: carBAMazepine (TEGretol) 200 mg tablet, Take 2 tablets (400 mg) by mouth 2 times a day., Disp: , Rfl: diclofenac (Cataflam) 50 mg tablet, Take 1 tablet (50 mg) by mouth 3 times a day., Disp: , Rfl: ibuprofen 200 mg tablet, Take by mouth every 6 (six) hours., Disp: , Rfl: lancets misc, TEST SUGARS 2 TIMES DAILY, Disp: 100 each, Rfl: 3 losartan (Cozaar) 100 mg tablet, Take 1 tablet (100 mg) by mouth once daily., Disp: 30 tablet, Rfl: 11 magnesium gluconate (Magonate) 27.5 mg magne- sium (500 mg) tablet, Take 1 tablet (27.5 mg) by mouth once daily., Disp: , Rfl: melatonin 3 mg tablet, Take 5 mg by mouth once daily at bedtime., Disp: , Rfl: metFORMIN XR (Glucophage-XR) 500 mg 24 hr tablet, Take 2 tablets (1,000 mg) by mouth 2 times daily (morning and late afternoon). Do not crush, chew, or split., Disp: 360 tablet, Rfl: 3 multivit-min/iron/folic/lutein (CENTRUM SILVER WOMEN ORAL), Take 1 tablet by mouth in the morning., Disp: , Rfl: NIFEdipine ER (NIFEdipine CC) 90 mg 24 hr tablet, Take 1 tablet (90 mg) by mouth once daily., Disp: 90 tablet, Rfl: 3 omega-3 acid ethyl esters (Lovaza) 1 gram capsule, Take 1 capsule (1 g) by mouth 2 times a day., Disp: , Rfl: pioglitazone (Actos) 30 mg tablet, Take 1 tablet (30 mg) by mouth once daily., Disp: 30 tablet, Rfl: 11 venlafaxine XR (Effexor-XR) 150 mg 24 hr capsule, Take 1 capsule (150 mg) by mouth 2 times a day., Disp: , Rfl: zinc sulfate (Zincate) 220 (50 Zn) MG capsule, Take by mouth., Disp: , Rfl: carvedilol (Coreg) 12.5 mg tablet, Take 1 tablet (12.5 mg) by mouth 2 times daily (morning and late afternoon)., Disp: 60 tablet, Rfl: 2 cholecalciferol (Vitamin D-3) 50 MCG (2000 UT) tablet, Take 1 tablet (50 mcg) by mouth 2 times a day. (Patient not taking: Reported on 04/19/2025), Disp: , Rfl: eszopiclone (Lunesta) 1 mg tablet, Take 2 tablets (2 mg) by mouth once daily at bedtime. (Patient not taking: Reported on 04/19/2025), Disp: , Rfl: [2] Past Medical History: Diagnosis Date Bipolar depression (Multi) 09/18/2022 Fibrocystic breast Decades ago Goiter 09/18/2022 History of recurrent ear infection 09/18/2022 Hyponatremia 09/18/2022 Otitis externa 09/18/2022 Personal history of other endocrine, nutritional and metabolic disease History of diabetes mellitus Personal history of other endocrine, nutritional and metabolic disease History of thyroid disorder Personal history of transient ischemic attack (TIA), and cerebral infarction without residual deficits History of cerebrovascular accident [3] Past Surgical History: Procedure Laterality Date OTHER SURGICAL HISTORY 09/10/2021 Back surgery [4] Family History Problem Relation Name Age of Onset Breast cancer Paternal Grandmother Marisel mendoza 66 Breast cancer Father's Sister 37 documented in this encounter [facility] Work Phone: 09-28-2024 History of Present illness Narrative Subjective Patient ID: Reinier Mendoza is a 54 y.o. female who presents for Establish Care, Sinusitis, and Cyst. HPI Here today to establish as a new patient with me Reportts she got lab work done today She has multiple concerns Reports she gets folliculitis especially in her bikini line, and she has many cysts that she is embarrassed about. Reports PO azithromycin usually helps clear them up. DM2, her A1C is down to 6.7 and was taking metformin 1000mg BID and stopped taking her actos. Acute concerns, she fell on her back on the ice and only has pain right at the site she fell on. Review of Systems Constitutional: Negative for chills, fatigue and fever. HENT: Positive for congestion. Negative for sinus pain. Respiratory: Negative for cough and shortness of breath. Cardiovascular: Negative for chest pain, palpitations and leg swelling. Gastrointestinal: Negative for abdominal pain, constipation and diarrhea. Genitourinary: Negative for dysuria. Skin: Positive for wound. Neurological: Negative for dizziness, light-headedness and numbness. Objective BP 139/84 (Patient Position: Sitting) Pulse 83 Ht 1.676 m (5' 6") Wt 108 kg (238 lb 9.6 oz) BMI 38.51 kg/m Physical Exam Cardiovascular: Rate and Rhythm: Normal rate and regular rhythm. Heart sounds: Normal heart sounds. Skin: Capillary Refill: Capillary refill takes less than 2 seconds. Neurological: Mental Status: She is oriented to person, place, and time. Assessment/Plan Problem List Items Addressed This Visit None Visit Diagnoses Codes Screening for colon cancer - Primary Z12.11 Relevant Orders Cologuard colon cancer screening Folliculitis L73.9 Relevant Medications erythromycin base (E-Mycin) 250 mg tablet Encounter for screening mammogram for malignant neoplasm of breast Z12.31 Relevant Orders BI mammo bilateral screening tomosynthesis Acute low back pain without sciatica, unspecified back pain laterality M54.50 Relevant Medications triamcinolone acetonide (Kenalog-40) injection 40 mg (Completed) (Start on 09/28/2024 1:45 PM) Dm2 -A1C is 6.7, rechecked today -Continue metformin 1000mg BID -IF A1C is elevated will add actos 30mg Folliculitis -Erythromycin 250 mg QID x 10 days Acute back pain -Pt requesting steroid IM for her acute back pain Care gaps -Mammo ordered -Cologuard ordered today -Due for diabetic eye exam, she is going to [facility] -Lab work ordered -February due for physical HTN -Continue nifedipine 90mg -Continue losartan 100 mg daily -CMP done today -Coreg 6.25mg daily Bipolar disease -Follows with psych every 2 months -Continue abilify, effexor, tegretol and lunesta documented in this encounter [facility] Work Phone: 07-08-2024 History of Present illness Narrative Subjective Patient ID: Reinier Mendoza is a 54 y.o. female who presents for UTI (UTI sx for about 1 week. Pt has back pain, frequency.). HPI Female presents for evaluation of dysuria. Patient reports several days of increased urinary frequency, mild suprapubic discomfort, and with urination. Patient denies fever, nausea, vomiting, or other constitutional signs and symptoms. Patient reports similar episodes in the past diagnosed as urinary tract infections. No other complaints. Review of Systems Constitutional: See HPI Genitourinary: See HPI. Neurologic: Alert and oriented X4, No numbness, No tingling. All other systems are negative Objective BP 138/88 (BP Location: Right arm, Patient Position: Sitting) Pulse 80 Temp 36.4 C (97.6 F) (Temporal) Resp 16 Ht 1.676 m (5' 6") Wt 107 kg (235 lb) SpO2 98% BMI 37.93 kg/m Physical Exam General: Alert and oriented, No acute distress. Eye: Pupils are equal, round and reactive to light, Normal conjunctiva. HENT: Normocephalic, Neck: Supple Respiratory: Respirations are non-labored Musculoskeletal: Normal ROM and strength Integumentary: Warm, Dry, Intact, No pallor, No rash. Neurologic: Alert, Oriented, Normal sensory, Cranial Nerves II-XII are grossly intact Psychiatric: Cooperative, Appropriate mood & affect. Assessment/Plan Urinalysis with leukocyte esterase and nitrites consistent with UTI. Prescription for Cipro and Pyridium. Urine sent for culture. Patient's clinical presentation is otherwise unremarkable at this time. Patient is discharged with instructions to follow-up with primary care or seek emergency medical attention for worsening symptoms or any new concerns. Problem List Items Addressed This Visit None Visit Diagnoses Acute cystitis without hematuria - Primary Relevant Medications ciprofloxacin (Cipro) 500 mg tablet phenazopyridine (Pyridium) 200 mg tablet Other Relevant Orders POCT UA Automated manually resulted Urine Culture Dysuria Relevant Medications ciprofloxacin (Cipro) 500 mg tablet phenazopyridine (Pyridium) 200 mg tablet Other Relevant Orders POCT UA Automated manually resulted Urine Culture Final diagnoses: [N30.00] Acute cystitis without hematuria [R30.0] Dysuria documented in this encounter [facility] Work Phone: 06-23-2024 Evaluation + Plan note Associated Problem(s): Hyponatremia Had significant decrease in her sodium to 125 on the eighth, was given 3 tablets of sodium chloride, repeat lab work on the th had increased to 131, she has had significant increase in her fluid intake, at this time she is drinking 7-8 14 to 16 ounce glasses of water per day along with 2-12 to 14 ounce cups of coffee per day, she has agreed to decrease her fluid intake, she will buy some bottles of water and drink 616 ounce bottles of water per day, I did explain to her that this is still higher than what would normally be recommended, she will not drink any coffee, will repeat labs in 1 month and make further recommendations at that time [facility] Work Phone: 06-23-2024 Miscellaneous Notes Associated Problem(s): Hyponatremia Had significant decrease in her sodium to 125 on the eighth, was given 3 tablets of sodium chloride, repeat lab work on the had increased to 131, she has had significant increase in her fluid intake, at this time she is drinking 7-8 14 to 16 ounce glasses of water per day along with 2-12 to 14 ounce cups of coffee per day, she has agreed to decrease her fluid intake, she will buy some bottles of water and drink 616 ounce bottles of water per day, I did explain to her that this is still higher than what would normally be recommended, she will not drink any coffee, will repeat labs in 1 month and make further recommendations at that time documented in this encounter [facility] Work Phone: 06-23-2024 History of Present illness Narrative Subjective Patient ID: Reinier Mendoza is a 54 y.o. female who presents for Follow-up (Review labs) and Abnormal Sodium. Patient being seen in follow-up secondary to hyponatremia with recent UTI Labs reviewed Glucose 185 Sodium 131, potassium 4.3, chloride 98, bicarb 25 Renal functions BUN of 12 and creatinine of 0.52 Hemoglobin A1c 6.7 She was in the emergency room on the eighth at which time her sodium was 125, she was started on salt tablets 1 tablet 3 times a day, for 1 day only Drinking about 7-8 glasses of water per day, 2 cups of coffee, occasional milk, She does state that she has noticed that she has had increase in her fluid intake She has tried to decrease this She is added some electrolytes to her water to try to help with her sodium She has no edema Review of Systems Constitutional: Negative. Respiratory: Negative. Cardiovascular: Negative. Gastrointestinal: Negative. Endocrine: Negative. Genitourinary: Negative. Musculoskeletal: Negative. Skin: Negative. Neurological: Negative. Psychiatric/Behavioral: Negative. Objective Physical Exam Vitals reviewed. Constitutional: Appearance: Normal appearance. She is obese. HENT: Head: Normocephalic. Cardiovascular: Rate and Rhythm: Normal rate and regular rhythm. Pulmonary: Effort: Pulmonary effort is normal. Breath sounds: Normal breath sounds. Abdominal: Palpations: Abdomen is soft. Musculoskeletal: General: Normal range of motion. Skin: General: Skin is warm and dry. Neurological: Mental Status: She is alert and oriented to person, place, and time. Psychiatric: Mood and Affect: Mood normal. Behavior: Behavior normal. Assessment/Plan Problem List Items Addressed This Visit ICD-10-CM HTN (hypertension) I10 Hyponatremia - Primary E87.1 Had significant decrease in her sodium to 125 on the eighth, was given 3 tablets of sodium chloride, repeat lab work on the had increased to 131, she has had significant increase in her fluid intake, at this time she is drinking 7-8 14 to 16 ounce glasses of water per day along with 2-12 to 14 ounce cups of coffee per day, she has agreed to decrease her fluid intake, she will buy some bottles of water and drink 616 ounce bottles of water per day, I did explain to her that this is still higher than what would normally be recommended, she will not drink any coffee, will repeat labs in 1 month and make further recommendations at that time Relevant Orders Basic metabolic panel Follow Up In Nephrology Hyponatremia: Secondary to medications and polydipsia Hypertension-uncontrolled Diabetes mellitus type 2 Bipolar disorder Emilie M LUCÍA Cornelius DNP 06/23/24 2:41 PM documented in this encounter [facility] Work Phone: 06-23-2024 Instructions LUCÍA Campo DNP - 06/23/2024 2:30 PM EST 6 -16 ounce bottles of water a day Recheck labs in one month. documented in this encounter [facility] Work Phone: 06-17-2024 Hospital Discharge instructions Karissa Ellington PA-C - 06/17/2024 3:20 PM EST You have a urinary tract infection. You had been prescribed oral antibiotics. Recommended follow-up with your family physician. Your urine has been sent for culture, if it grows out a bacteria that the antibiotic you are currently on does not treat, you will be called in a different antibiotic. In addition your sodium was noted to be low. You do have a history of hyponatremia and you were given IV fluids. You are not too far from your baseline. It is recommended that you follow up with Dr. Cornelius The following attachments cannot be sent through Care Everywhere.Urinary Tract Infection, Adult ED (Lithuanian)Hyponatremia (Lithuanian)documented in this encounter [facility] Work Phone: 04-25-2024 History of Present illness Narrative 54 y.o. female presents for evaluation of URI. Symptoms including cough, congestion, body aches, malaise, and headache have been present for several days and refractory to OTC meds. No fever, chills, nausea, vomiting, abdominal pain, CP, or SOB. No exacerbating factors. Exposure to sick grandchildren. Vitals: 04/25/24 1205 BP: 126/77 Pulse: 85 Resp: 14 Temp: 36.5 C (97.7 F) SpO2: 94% Allergies Allergen Reactions Azithromycin Unknown Sulfa (Sulfonamide Antibiotics) Unknown Medication Documentation Review Audit Reviewed by Mackenzie Schneider MA (Agricultural Engineer) on 04/25/24 at 1203 Medication Order Taking? Sig Documenting Provider Last Dose Status amoxicillin-pot clavulanate (Augmentin) 875-125 mg tablet [id number] Yes Take 1 tablet (875 mg) by mouth 2 times a day for 10 days. James Sahu, DO Taking Active ARIPiprazole (Abilify) 15 mg tablet [id number] Yes Take 0.5 tablets (7.5 mg) by mouth once daily. Historical Provider, Taking Active ascorbic acid (Vitamin C) 1,000 mg tablet [id number] Yes Take 1 tablet (1,000 mg) by mouth once daily. James Sahu DO Taking Active aspirin 81 mg EC tablet [id number] Yes Take 1 tablet (81 mg) by mouth once daily. James Sahu DO Taking Active blood sugar diagnostic (Accu-Chek Guide test strips) strip [id number] Yes 2 strips 2 times a day as needed (Blood sugars). James Sahu DO Taking Active carBAMazepine (TEGretol) 200 mg tablet [id number] Yes Take 2 tablets (400 mg) by mouth 2 times a day. James Sahu DO Taking Active carvedilol (Coreg) 6.25 mg tablet [id number] Yes Take 1 tablet (6.25 mg) by mouth 2 times a day with meals. James Sahu DO Taking Active cholecalciferol (Vitamin D-3) 50 MCG (2000 UT) tablet [id number] No Take 1 tablet (2,000 Units) by mouth 2 times a day. James Sahu DO Not Taking Active ciprofloxacin-dexamethasone (Ciprodex) otic suspension [id number] Administer 4 drops into the left ear 2 times a day for 7 days. Josh Harris APRN-SYSTEMS SUPPORT ENGINEER 04/20/24 1040 cyanocobalamin, vitamin B-12, (Vitamin B-12) 1,000 mcg tablet extended release [id number] No Take 1 tablet (1,000 mcg) by mouth once daily. James L Oberhauser, DO Not Taking Active doxepin (SINEquan) 25 mg capsule [id number] Yes Take 1 capsule (25 mg) by mouth once daily at bedtime. Historical Provider, Taking Active glipiZIDE (Glucotrol) 5 mg tablet [id number] No Take 1 tablet (5 mg) by mouth 2 times a day before meals. Patient not taking: Reported on 04/13/2024 James Sahu DO Not Taking Active ibuprofen 200 mg tablet [id number] No Take by mouth every 6 (six) hours. James Sahu, DO Not Taking Active lancets misc [id number] Yes TEST SUGARS 1-2 TIMES DAILY James Sahu DO Taking Active losartan (Cozaar) 100 mg tablet [id number] Yes Take 1 tablet (100 mg) by mouth once daily. James Sahu, DO Taking Active magnesium gluconate (Magonate) 27.5 mg magne- sium (500 mg) tablet [id number] No Take 1 tablet (27.5 mg) by mouth once daily. James Sahu, DO Not Taking Active melatonin 3 mg tablet [id number] No Take 1 tablet (3 mg) by mouth once daily at bedtime. James Sahu, DO Not Taking Active metFORMIN XR (Glucophage-XR) 500 mg 24 hr tablet [id number] Yes Take 2 tablets (1,000 mg) by mouth 2 times a day with meals. Do not crush, chew, or split. James Sahu, DO Taking Active mirtazapine (Remeron) 15 mg tablet [id number] No Take 1 tablet (15 mg) by mouth once daily at bedtime. James Sahu, DO Not Taking Active multivit-min/iron/folic/lutein (CENTRUM SILVER WOMEN ORAL) [id number] No Take 1 tablet by mouth in the morning. James Sahu, DO Not Taking Active NIFEdipine ER (NIFEdipine CC) 90 mg 24 hr tablet [id number] Yes Take 1 tablet (90 mg) by mouth once daily. James Sahu, DO Taking Active pioglitazone (Actos) 30 mg tablet [id number] Yes Take 1 tablet (30 mg) by mouth once daily. James Sahu, DO Taking Active turmeric root extract 500 mg tablet [id number] No Take 2 tablets by mouth in the morning. James Sahu, DO Not Taking Active venlafaxine XR (Effexor-XR) 150 mg 24 hr capsule [id number] No Take 1 capsule (150 mg) by mouth 2 times a day. James Sahu, DO Not Taking Active venlafaxine XR (Effexor-XR) 75 mg 24 hr capsule [id number] Yes TAKE 1 CAPSULE BY MOUTH ONCE DAILY ALONG WITH THE 150 MG FOR TOTAL DAILY DOSE OF 225MG Historical Provider, Taking Active zinc sulfate (Zincate) 220 (50 Zn) MG capsule [id number] No Take by mouth. James Sahu, DO Not Taking Active Past Medical History: Diagnosis Date Bipolar depression (Multi) 09/18/2022 Goiter 09/18/2022 History of recurrent ear infection 09/18/2022 Hyponatremia 09/18/2022 Otitis externa 09/18/2022 Personal history of other endocrine, nutritional and metabolic disease History of diabetes mellitus Personal history of other endocrine, nutritional and metabolic disease History of thyroid disorder Personal history of transient ischemic attack (TIA), and cerebral infarction without residual deficits History of cerebrovascular accident Past Surgical History: Procedure Laterality Date OTHER SURGICAL HISTORY 09/10/2021 Back surgery ROS See HPI Physical Exam Vitals and nursing note reviewed. Constitutional: Appearance: Normal appearance. She is ill-appearing (mildly). HENT: Head: Normocephalic and atraumatic. Right Ear: Tympanic membrane and ear canal normal. Left Ear: Tympanic membrane and ear canal normal. Nose: Congestion present. Mouth/Throat: Mouth: Mucous membranes are moist. Pharynx: Oropharynx is clear. Eyes: Extraocular Movements: Extraocular movements intact. Conjunctiva/sclera: Conjunctivae normal. Pupils: Pupils are equal, round, and reactive to light. Cardiovascular: Rate and Rhythm: Normal rate. Pulmonary: Effort: Pulmonary effort is normal. Breath sounds: Wheezing (faint scattered) present. Comments: Moist cough Lymphadenopathy: Cervical: No cervical adenopathy. Skin: General: Skin is warm and dry. Neurological: General: No focal deficit present. Mental Status: She is alert and oriented to person, place, and time. Psychiatric: Mood and Affect: Mood normal. Behavior: Behavior normal. Recent Results (from the past 1 hour(s)) POCT SARS-COV-2/FLU/RSV PCR SYMPTOMATIC manually resulted Collection Time: 04/25/24 12:55 PM Result Value Ref Range POC Coronavirus 2019, PCR Not Detected Not Detected POC Flu A Result Not Detected Not Detected POC Flu B Result Not Detected Not Detected POC RSV PCR Not Detected Not Detected Assessment/Plan/MDM Reinier was seen today for uri. Diagnoses and all orders for this visit: Acute bronchitis, unspecified organism (Primary) - POCT SARS-COV-2/FLU/RSV PCR SYMPTOMATIC manually resulted - doxycycline (Adoxa) 100 mg tablet; Take 1 tablet (100 mg) by mouth 2 times a day for 7 days. Take with a full glass of water and do not lie down for at least 30 minutes after - methylPREDNISolone (Medrol Dospak) 4 mg tablets; Take as directed on package. - albuterol 90 mcg/actuation inhaler; Inhale 2 puffs every 6 hours if needed for wheezing. Encouraged pt to continue otc cold remedies PRN, push PO fluids and rest. Patient's clinical presentation is otherwise unremarkable at this time. Patient is discharged with instructions to follow-up with primary care or seek emergency medical attention for worsening symptoms or any new concerns. I did personally review Reinier's past medical history, surgical history, social history, as well as family history (when relevant). In this case, I also oversaw the her drug management by reviewing her medication list, allergy list, as well as the medications that I prescribed during the UC course and/or recommended as an out-patient (including possible OTC medications such as acetaminophen, NSAIDs , etc). After reviewing the items above, I did look at previous medical documentation, such as recent hospitalizations, office visits, and/or recent consultations with PCP/specialist. SDOH: Another factor that I considered in Reinier's care was her Social Determinants of Health (SDOH). During this UC encounter, she did not have social determinants of health. Those SDOH influencing Reinier's care are: none Josh Harris CNP [facility] [phone] documented in this encounter [facility] Work Phone: 04-13-2024 History of Present illness Narrative [facility] NOTE: Name: Reinier Mendoza, 54 y.o. CSN:[id number] PCP: James Sahu, ALL: Allergies Allergen Reactions Azithromycin Unknown Sulfa (Sulfonamide Antibiotics) Unknown History: Chief Complaint: Earache (Left ear pain x 1 day) Encounter Date: 04/13/2024 15:30 HPI: The history was obtained from the patient. Reinier is a 54 y.o. female, who presents with a chief complaint of Earache (Left ear pain x 1 day) Patient states pain began this morning. It is associated with muffled hearing. Patient states there is clear discharge from the ear. She typically experiences allergy symptoms this time of year, but her allergy symptoms were worse this episode compared to before. She has taken tylenol for the pain with minimal relief. PMHx: Past Medical History: Diagnosis Date Bipolar depression (Multi) 09/18/2022 Goiter 09/18/2022 History of recurrent ear infection 09/18/2022 Hyponatremia 09/18/2022 Otitis externa 09/18/2022 Personal history of other endocrine, nutritional and metabolic disease History of diabetes mellitus Personal history of other endocrine, nutritional and metabolic disease History of thyroid disorder Personal history of transient ischemic attack (TIA), and cerebral infarction without residual deficits History of cerebrovascular accident Current Outpatient Medications Medication Sig Dispense Refill ARIPiprazole (Abilify) 15 mg tablet Take 0.5 tablets (7.5 mg) by mouth once daily. aspirin 81 mg EC tablet Take 1 tablet (81 mg) by mouth once daily. blood sugar diagnostic (Accu-Chek Guide test strips) strip 2 strips 2 times a day as needed (Blood sugars). 100 strip 3 carBAMazepine (TEGretol) 200 mg tablet Take 2 tablets (400 mg) by mouth 2 times a day. carvedilol (Coreg) 6.25 mg tablet Take 1 tablet (6.25 mg) by mouth 2 times a day with meals. 180 tablet 3 lancets misc TEST SUGARS 1-2 TIMES DAILY 50 each 11 losartan (Cozaar) 100 mg tablet Take 1 tablet (100 mg) by mouth once daily. 30 tablet 11 metFORMIN XR (Glucophage-XR) 500 mg 24 hr tablet Take 2 tablets (1,000 mg) by mouth 2 times a day with meals. Do not crush, chew, or split. 336 tablet 3 multivit-min/iron/folic/lutein (CENTRUM SILVER WOMEN ORAL) Take 1 tablet by mouth in the morning. NIFEdipine ER (NIFEdipine CC) 90 mg 24 hr tablet Take 1 tablet (90 mg) by mouth once daily. 90 tablet 3 pioglitazone (Actos) 30 mg tablet Take 1 tablet (30 mg) by mouth once daily. 90 tablet 3 ascorbic acid (Vitamin C) 1,000 mg tablet Take 1 tablet (1,000 mg) by mouth once daily. cholecalciferol (Vitamin D-3) 50 MCG (2000 UT) tablet Take 1 tablet (2,000 Units) by mouth 2 times a day. cyanocobalamin, vitamin B-12, (Vitamin B-12) 1,000 mcg tablet extended release Take 1 tablet (1,000 mcg) by mouth once daily. doxepin (SINEquan) 25 mg capsule Take 1 capsule (25 mg) by mouth once daily at bedtime. glipiZIDE (Glucotrol) 5 mg tablet Take 1 tablet (5 mg) by mouth 2 times a day before meals. (Patient not taking: Reported on 04/13/2024) 60 tablet 11 ibuprofen 200 mg tablet Take by mouth every 6 (six) hours. magnesium gluconate (Magonate) 27.5 mg magne- sium (500 mg) tablet Take 1 tablet (27.5 mg) by mouth once daily. melatonin 3 mg tablet Take 1 tablet (3 mg) by mouth once daily at bedtime. mirtazapine (Remeron) 15 mg tablet Take 1 tablet (15 mg) by mouth once daily at bedtime. turmeric root extract 500 mg tablet Take 2 tablets by mouth in the morning. venlafaxine XR (Effexor-XR) 150 mg 24 hr capsule Take 1 capsule (150 mg) by mouth 2 times a day. venlafaxine XR (Effexor-XR) 75 mg 24 hr capsule TAKE 1 CAPSULE BY MOUTH ONCE DAILY ALONG WITH THE 150 MG FOR TOTAL DAILY DOSE OF 225MG zinc sulfate (Zincate) 220 (50 Zn) MG capsule Take by mouth. No current facility-administered medications for this visit. PMSx: Past Surgical History: Procedure Laterality Date OTHER SURGICAL HISTORY 09/10/2021 Back surgery Fam Hx: No family history on file. SOC. Hx: Social History Socioeconomic History Marital status: Single Spouse name: Not on file Number of children: Not on file Years of education: Not on file Highest education level: Not on file Occupational History Not on file Tobacco Use Smoking status: Every Day Current packs/day: 0.25 Types: Cigarettes Smokeless tobacco: Never Vaping Use Vaping status: Never Used Substance and Sexual Activity Alcohol use: Yes Drug use: Never Sexual activity: Not on file Other Topics Concern Not on file Social History Narrative Not on file Social Determinants of Health Financial Resource Strain: Not on file Food Insecurity: Not on file Transportation Needs: Not on file Physical Activity: Not on file Stress: Not on file Social Connections: Not on file Intimate Partner Violence: Not on file Housing Stability: Not on file Vitals: 04/13/24 1521 BP: 147/87 Pulse: 81 Resp: 14 Temp: 36.8 C (98.2 F) SpO2: 97% 109 kg (240 lb) Physical Exam Vitals reviewed. Constitutional: General: She is not in acute distress. Appearance: Normal appearance. She is not ill-appearing or diaphoretic. HENT: Head: Normocephalic. Jaw: There is normal jaw occlusion. Right Ear: Hearing, tympanic membrane, ear canal and external ear normal. No drainage. Tympanic membrane is not injected. Left Ear: Hearing normal. Swelling and tenderness present. Ears: Comments: Pain on palpation of the tragus. Patient did not tolerate scope. TM unable to visualize due to canal swelling. Neurological: Mental Status: She is alert. LABORATORY @ RADIOLOGICAL IMAGING (if done): No results found for this or any previous visit (from the past 24 hour(s)). I did personally review Reinier's past medical history, surgical history, social history, as well as family history (when relevant). In this case, I also oversaw the her drug management by reviewing her medication list, allergy list, as well as the medications that I prescribed during the UC course and/or recommended as an out-patient (including possible OTC medications such as acetaminophen, NSAIDs , etc). After reviewing the items above, I did look at previous medical documentation, such as recent hospitalizations, office visits, and/or recent consultations with PCP/specialist. SDOH: Another factor that I considered in Reinier's care was her Social Determinants of Health (SDOH). During this UC encounter, she did not have social determinants of health. Those SDOH influencing Reinier's care are: none UC COURSE/MEDICAL DECISION MAKING: Reinier is a 54 y.o., who presents with a working diagnosis of No diagnosis found. with a differential to include: Otitis Externa, Otitis Media, TMJ, viral/bacterial Sinusitis, allergic sinusitis, eustachian tube dysfunction Plan: Given patients onset of symptoms, history of allergies and ear exam it is likely the patient has Otitis externa. Patient will be treated with steroid combined antibiotic (Ciprodex) to manage inflammation and concurrent infection. Patient should follow-up with primary care for evaluation of recurrent allergy symptoms. I, Alex Cotton, [employer] student, helped prepare the medical record for my supervising clinician. Supervised by Josh Harris CNP Advanced Practice Provider [facility] I was present with the PA student who participated in the documentation of this note. I have personally seen and re-examined the patient and performed the medical decision-making components (assessment and plan of care). I have reviewed the PA student documentation and verified the findings in the note as written with additions or exceptions as stated in the body of this note. Alex Cotton PA-S documented in this encounter [facility] Work Phone: 04-15-2023 History of Present illness Narrative Subjective Patient ID: Reinier Mendoza is a 53 y.o. female who presents for Sinusitis (Tx with Cefdinir 300; slowing getting better/Still has mucus in her head/) and Follow-up (9 month). Sinusitis Pertinent negatives include no chills, congestion, coughing, shortness of breath, sinus pressure or sore throat. Patient is here today for follow up Patient report that she was seen at the Urgent Care and was given Cefdinir. She wash having ear pain and some drainage. She finished the antibiotic a few weeks ago. Review of Systems Constitutional: Negative for activity change, appetite change, chills and fatigue. HENT: Negative for congestion, postnasal drip, sinus pressure, sinus pain and sore throat. Respiratory: Negative for cough, shortness of breath and wheezing. Cardiovascular: Negative for chest pain and leg swelling. Gastrointestinal: Negative for abdominal distention, diarrhea, nausea and vomiting. Musculoskeletal: Negative for back pain. Neurological: Negative for weakness and numbness. Objective BP 126/82 (BP Location: Right arm, Patient Position: Sitting, BP Cuff Size: Adult) Pulse 76 Ht 1.524 m (5') Wt 99.3 kg (219 lb) BMI 42.77 kg/m Physical Exam Constitutional: General: She is not in acute distress. Appearance: Normal appearance. HENT: Head: Normocephalic. Nose: Nose normal. Mouth/Throat: Pharynx: No oropharyngeal exudate. Eyes: General: Right eye: No discharge. Left eye: No discharge. Extraocular Movements: Extraocular movements intact. Pupils: Pupils are equal, round, and reactive to light. Cardiovascular: Rate and Rhythm: Normal rate and regular rhythm. Heart sounds: No murmur heard. No gallop. Pulmonary: Effort: Pulmonary effort is normal. No respiratory distress. Breath sounds: Normal breath sounds. No wheezing. Musculoskeletal: General: No swelling. Normal range of motion. Skin: General: Skin is warm and dry. Coloration: Skin is not jaundiced. Neurological: General: No focal deficit present. Mental Status: She is alert and oriented to person, place, and time. Cranial Nerves: No cranial nerve deficit. Psychiatric: Mood and Affect: Mood normal. Behavior: Behavior normal. Assessment/Plan Problem List Items Addressed This Visit Depression Diabetes (CMS/HCC) - Primary Insomnia Seizures (CMS/HCC) .1. Uncontrolled DMII , improving - a1c was 10.6 in 11/29 -> 9.9% -> 8.9% - jardiance and farxgia too expensive , moo she states was $50 a month - stopped metformin due to diarrhea, did not tolerate either regular or er - on pioglitazone 2 HTN - on coreg, losartan 3. Bipolar depression, anxiety - sees psych - on Effexor and mirtazapine 4. VADIM on CPAP - using cpap, still has not gotten a new one, needs new order Final diagnoses: [E11.9] Type 2 diabetes mellitus without complication, without long-term current use of insulin ([facility]) [F33.41] Recurrent major depressive disorder, in partial remission (CMS/[facility]) [R56.9] Seizures (CMS/[facility]) [F51.01] Primary insomnia documented in this encounter [facility] Work Phone: 08-21-2022 History of Present illness Narrative Patient is here today for 6 mo follow upPTs a1c was 9.9%She is currently doing metformin 1000mg po bid, pioglitazone 30mg po dailyFarxgia and jardiance was too expensive.On Pioglitazone but a1c is increased to 9.9% from 9.4%Will see if any once a week injectables are covered but not super expensive.she really has made changes to her diet and is cooking more and watching her carbs. [facility] Work Phone: 06-11-2022 History of Present illness Narrative Pt presents for a 2 week follow-up for elevated blood pressures.Brought blood pressure readings into the office for review. Blood pressures last 2 days were 152/94 and 161/83,Ran out of medication on Thursday.Reports experiencing headaches and dizziness when off the medication.Denies any visual disturbances when wearing her glasses.Complains of excessive sweating which is not acute. Questions if this is potentially related to menopause.Labs drawn within the past hour and have not been resulted yet. [id number]-Iavyzxl 230 DO Work Phone: 05-25-2022 History of Present illness Narrative Pt presents for a 1 week follow-up fopr elevated blood pressures.Started on Nifedipine 30 mg at appointment last week.Brought blood pressure log to the office.Systolic and diastolic readings remain elevated 150s-170s/100 but have improved.Reports sleep has improved since her blood pressures have been lower.Spoke w/ her psychiatrist about Tegretol dose and sodium levels. She notes psychiatrist is willing to work with nephrology to prevent significant issues w/ sodium levels. [id number]-Vfmvsag-Uzzalab 230 DO Work Phone: 05-14-2022 History of Present illness Narrative Patient being seen post discharge from the hospital for hyponatremiaShe was found to have underlying SIADH secondary to her medications and also had polydipsia she was drinking significant amounts of fluidLabs are reviewedOn May 14 sodium was 135, potassium 4.1, chloride 96, bicarb 25Renal function with a BUN of 10 and creatinine of 0.59While hospitalized her sodium was as low as 124She has predominantly been placed on a fluid restrictionShe states that she feels she has been drinking more fluid recently as her Tegretol has been increasedShe did not sleep well last nightHer blood pressure is elevated in the office today, she does have a blood pressure cuff at home but does not check her blood pressureShe thinks that if I give her a paper she may remember to check her blood pressureShe does have difficulty getting to the office that she depends on her son and [id number] to give her a ride [facility] Work Phone: 04-30-2022 Note Send Summary: Discharge Summary Providers: Provider RoleProvider Name ReferringAjit Torrez AttendingAjit Torrez [facility] HospitalTom cordero Nurse PractitionerKaterina Akbar Megan L Note Recipients: James Sahu, DO Discharge: Summary: Admission Date: .28-Apr-2022 10:14:00 Discharge Date: 30-Apr-2022 Attending Physician at Discharge: jazmín Admission Reason: low sodium Final Discharge Diagnoses: Hyponatremia, UTI (urinary tract infection) Procedures: none Condition at Discharge: satisfactory Disposition at Discharge: home Vital Signs: T PRBPMAPSpO2 [id number]/8596% Date/Time04/30 7: 7: 7: 7: 7:14 Range(35C - 36C ) (67 - 82 ) (16 - 18 ) (133 - 163 )/ (77 - 90 ) (94% - 99% ) Date: Weight/Scale Type:Height: 28-Apr-2022 14:1897.7 kg / ovm246.5 cm Physical Exam: General Appearance: AAO x 3, not in acute distress Skin: skin color, texture, turgor normal; no suspicious rashes or lesions Eyes : PERRL, EOM's intact, conjunctiva pink ENT: no oral thrush, no pharyngeal erythema or exudates Neck: no JVD, no lymphadenopathy Respiratory: lungs clear to auscultation; no wheezing, rhonchi, or crackles Heart: RRR without murmur, gallop, or rubs, no ectopy Abdomen: Nondistended, positive bowel sounds, soft, nontender Extremities: no edema Peripheral pulses: normal and present x 4 extremities Neuro: alert, coherent and conversant, no focal motor deficits Hospital Course: REINIER MENDOZA is a 52 year old Female with Pmhx of htn, bipolar, thyroid goiter, TIAs , VADIM (wears CPAP at home) and DM presenting to ED on 04/28 for body aches, chills, fatigue, decreased PO intake, and generalized weakness x 3 days. In ed, labs significant for sodium 124/125, CL 94, creatinine 0.37, and calcium 7.8. UA was positive for trace leukocytes and positive for nitrites. CXR was negative for acute process. In ed, patient vital signs were 9.7 temp, 87 HR, 18 RR, 99& on RA, and BP 188/113. patient was given NS bolus one liter, and OT dose of ceftriaxone 1g. patient will be admitted to the medical service for UTI and hyponatremia. PLAN: nephrology is following, appreciate recs continue cardiac diet with fluid restriction 1500 losartan restarted per nephro recs, tegretol is also restarted, will not resume home HCTZ patient is taking the tegretol for Bipolar ordered AM labs, continue CPAP at HS urine culture prelim results show gram negative baclilli, will start on macrobid pain -continue tylenol cardiac prophylaxis -continue ASA HTN -continue coreg -IV metorpolol with parameters PRN -restarted on losartan UTI -continue rocephin day 2 constipation -continue on colace -continue on MOM dyspepsia -continue maalox DM -continue sliding scale depression/insmonia -continue home remeron & home effexor -restarted tegretol GI prophylaxis -continue protonix dispo: d/c home today with macrobid, d/c hctz, FU with pcp, endo, podiatry, and nephro Discharge Information: and Continuing Care: Lab Results - Pending: Culture, Urine Drawn at 28-Apr-2022 11:15:00 Radiology Results - Pending: None Discharge Instructions: Activity: activity as tolerated. May shower.. May return to school/work. May drive.. Nutrition/Diet: resume normal diet, diabetic/carbohydrate counted Diabetic/Carbohydrate Counted: 75/gram Carb/meal, 30gram Carb snack (2) Diet Consistency/Texture: regular / thin Additional Orders: Additional Instructions: discharge plan follow up with primary care phyiscian within two weeks post discharge follow up with dr christian, podiatry for diabetic foot wound care follow up with endocrionlogist for DM management follow up with dr cornelius for hyponatremia STOP taking hydrochloathizide Dont drink alot of fluids this will deplete your sodium can resume other home medications call 911 or go to nearest ED if symptoms worsen/persist Follow Up Appointments: Follow-Up Appointment 01: Physician/Dept/Service: primary care physician Reason for Referral: post hospitalization Call to Schedule in: 2 weeks Follow-Up Appointment 02: Physician/Dept/Service: dr cornelius Reason for Referral: hypnatremia Call to Schedule in: 2 weeks Follow-Up Appointment 03: Physician/Dept/Service: dr christian Reason for Referral: DM foot care Call to Schedule in: 2 weeks Follow-Up Appointment 04: Physician/Dept/Service: dr jordan Reason for Referral: DM Call to Schedule in: 2 weeks Discharge Medications: Home Medication CARBAMAZEPINE 200 MG TABLET - 2 tab(s) orally 2 times a day CARVEDILOL 3.125 MG TABLET - 1 tab(s) orally once a day LOSARTAN POTASSIUM 100 MG TAB - 1 tab(s) orally once a day METFORMIN HCL ER 500 MG TABLET - 2 tab(s) orally 2 times a day MIRTAZAPINE 15 MG TABLET - 1 tab(s) orally once a day (at bedtime) (more content not included)... [facility] 04-28-2022 Note History of Present I llness: /Lactating: Are You no (1) Are You Currently Breastfeedingno (1) HPI: REINIER MENDOZA is a 52 year old Female with Pmhx of htn, bipolar, thyroid goiter, TIAs , VADIM (wears CPAP at home) and DM presenting to ED on 04/28 for body aches, chills, fatigue, decreased PO intake, and generalized weakness x 3 days. In ed, labs significant for sodium 124/125, CL 94, creatinine 0.37, and calcium 7.8. UA was positive for trace leukocytes and positive for nitrites. CXR was negative for acute process. In ed, patient vital signs were 9.7 temp, 87 HR, 18 RR, 99& on RA, and BP 188/113. patient was given NS bolus one liter, and OT dose of ceftriaxone 1g. patient will be admitted to the medical service for UTI and hyponatremia. 215pm: patient examined at bedside, reports she is hungry, states she hasnt been eating much either. she states her last BM was yesterday. denies any nausea or vomiting at this time. Pmhx: htn, bipolar and DM, Tia, thyroid goiter, VADIM Psoc: current smoker, no ETOH, no illicit drugs Psurg: back surgery 2005, D & C 10 point ROS was reviewed and negative other than listed above. Comorbidities: Comorbidites: Comorbid Conditionsdiabetes, hypertension Diabetes TypeType 2 Insulin Dependentno DM Acuity or Statusunknown DM Complicationsunknown Allergies: sulfa drugs: Unknown Medications Prior to Admission: Admission Medication Reconciliation has not been completed for this patient. Objective: Objective Information: T PRBPMAPSpO2 [id number]% Date/Time04/28 10: 13: 13: 13: 13: 13:00 Range(35.3C - 35.3C ) (80 - 87 ) (15 - 18 ) (142 - 188 )/ (93 - 113 ) (109 - 113 ) (96% - 99% ) Physical Exam Narrative: Physical Exam: General Appearance: AAO x , not in acute distress Skin: skin color, texture, turgor normal; no suspicious rashes or lesions Eyes : PERRL, EOM's intact, conjunctiva pink ENT: no oral thrush, no pharyngeal erythema or exudates Neck: no JVD, no lymphadenopathy Respiratory: lungs clear to auscultation; no wheezing, rhonchi, or crackles Heart: RRR without murmur, gallop, or rubs, no ectopy Abdomen: Nondistended, positive bowel sounds, soft, nontender Extremities: no edema Peripheral pulses: normal Neuro: alert, coherent and conversant, no focal motor deficits Medications: Medications: Continuous Medications No continuous medications are active Scheduled Medications 1. Ascorbic Acid: 1000 mg Oral Daily 2. Aspirin: 81 mg Oral Daily 3. Carvedilol - PEDS: 3.125 mg Oral Daily 4. cefTRIAXone 1 gram/ Dextrose 5% IVPB Premixed Soln 50 mL: 50 mL IntraVenous Piggyback Every 24 Hours 5. Cyanocobalamin: 1000 microgram(s) Oral Daily 6. Enoxaparin SubCutaneous: 40 mg SubCutaneous Every 24 Hours 7. Insulin Lispro Mild Corrective Scale: unit(s) SubCutaneous 3 Times a Day Before Meals 8. Mirtazapine - PEDS: 15 mg Oral Every Night 9. Pantoprazole: 40 mg Oral Daily 10. Venlafaxine Extended Release: 150 mg Oral Daily 11. Venlafaxine Extended Release: 75 mg Oral Daily PRN Medications 1. Acetaminophen: 650 mg Oral Every 4 Hours 2. Dextrose 50% in Water Injectable: 25 gram(s) IntraVenous Push Every 15 Minutes 3. diazePAM (VALIUM) Injectable: 5 mg IntraVenous Push Once 4. Docusate: 100 mg Oral 2 Times a Day 5. Glucagon Injectable: 1 mg IntraMuscular Every 15 Minutes 6. Magnesium Hydroxide -Al Hydrox -Simethicone Oral Liquid: 30 mL Oral Every 6 Hours 7. Magnesium Hydroxide Oral Liquid CONCENTRATE: 10 mL Oral Every 24 Hours 8. Ondansetron Injectable: 4 mg IntraVenous Push Every 4 Hours 9. Sodium Chloride 0.9% Injectable Flush: 10 mL IntraVenous Flush Every 8 Hours and as Needed Recent Lab Results: Results: CBC: 04/28/2022 11:03 \\ Hgb / \\ 14.0 / WBC Plt 4.6 213 / Hct \\ / 40.9 \\ RBC: 4.63 MCV: 88 Neutrophil %: 64.5 BMP: 04/28/2022 12:12 NA+ Cl- BUN / 125 L 94 L 9 / Glucose 257 H K+ HCO3- Creat \\ 3.6 23 0.37 L \\ Calcium : 7.8 L Anion Gap : 12 Radiology Results: Results: Impression: No acute cardiopulmonary disease. Xray Chest 1 View [Apr 28 2022 11:10AM] Assessment and Plan: Assessment: REINIER MENDOZA is a 52 year old Female with Pmhx of htn, bipolar, thyroid goiter, TIAs , VADIM (wears CPAP at home) and DM presenting to ED on 04/28 for body aches, chills, fatigue, decreased PO intake, and generalized weakness x 3 days. In ed, labs significant for sodium 124/125, CL 94, creatinine 0.37, and calcium 7.8. UA was positive for trace leukocytes and positive for nitrites. CXR was negative for acute process. In ed, patient vital signs were 9.7 temp, 87 HR, 18 RR, 99& on RA (more content not included)... [facility] 04-28-2022 History of Present illness Narrative Patient is here today for Hospital follow up[Patient went to the ED on 04/28/22 with vague symptoms including chills, achy, lethargic.Workup found that her NA was 124, she has had this issue in the past, POsitive for UTI. Was admitted for the sodium.Her Na did improve to 135.The day after she got home form the hospital she noticed that she had a tack stuck to the bottom of her slipper and it had poked into her foot, it Looks like it is healing well. Do recommend that she see podiatry.DMII - pt did not start farxiga because it was $80.SHe is only on metformin. SHe admits that she does not check her blood sugars because it is difficult for her to go through all the steps to prick her finger I think a FreeStyle beena would enable her to be more complaint as I think her bipolar depression makes it more difficult for her to care for herself and do what she needs to do, admits that she is not the best with her diet. [facility] Work Phone: 08-29-2021 Note HNO ID: [id number] Author: Antionette Wilkerson OD Service: ? Author Type: WATCH SUPERVISOR Type: Progress Notes Filed: 08/29/2021 3:32 PM Note Text: ASSESSMENT/PLAN: 1. Myopia, bilateral - ICD9: 367.1, ICD10: H52.13 (primary diagnosis) 2. Regular astigmatism, bilateral - ICD9: 367.21, ICD10: H52.223 3. Presbyopia - ICD9: 367.4, ICD10: H52.4 Trial framed the updated saeed and she appreciated the update. Will refer for glaucoma evaluation. Recommended yearly exams. Antionette Wilkerson, TONA [facility] Evaluation note Diagnosis Type 2 diabetes mellitus without complication, without long-term current use of insulin ([facility])- Primary Recurrent major depressive disorder, in partial remission (CMS/HCC) Seizures (CMS/HCC) Other convulsions Primary insomnia Persistent disorder of initiating or maintaining sleep Acute diffuse otitis externa of left ear documented in this encounter [facility] Work Phone: Evaluation note* Diagnosis Urinary tract infection without hematuria, site unspecified- Primary Hyponatremia Hyposmolality and/or hyponatremia documented in this encounter [facility] Work Phone: Evaluation note* Diagnosis Hyponatremia- Primary Hyposmolality and/or hyponatremia Primary hypertension Unspecified essential hypertension documented in this encounter [facility] Work Phone: Evaluation note* Diagnosis Hyponatremia- Primary Hyposmolality and/or hyponatremia Primary hypertension Unspecified essential hypertension Acute cystitis without hematuria- Primary Dysuria documented in this encounter [facility] Work Phone: Evaluation note* Diagnosis Other infective acute otitis externa of left ear- Primary documented in this encounter [facility] Work Phone: Evaluation note* Diagnosis Acute bronchitis, unspecified organism- Primary documented in this encounter [facility] Work Phone: Evaluation note* Diagnosis Hyponatremia- Primary Hyposmolality and/or hyponatremia Primary hypertension Unspecified essential hypertension Screening for colon cancer- Primary Special screening for malignant neoplasms, colon Folliculitis Other specified disease of hair and hair follicles Encounter for screening mammogram for malignant neoplasm of breast Acute low back pain without sciatica, unspecified back pain laterality documented in this encounter [facility] Work Phone: Evaluation note* Diagnosis Hyponatremia- Primary Hyposmolality and/or hyponatremia Primary hypertension Unspecified essential hypertension Encounter for screening mammogram for malignant neoplasm of breast documented in this encounter [facility] Work Phone: Evaluation note* Diagnosis Hyponatremia- Primary Hyposmolality and/or hyponatremia Primary hypertension Unspecified essential hypertension Type 2 diabetes mellitus without complication, without long-term current use of insulin- Primary Primary hypertension Unspecified essential hypertension documented in this encounter [facility] Work Phone: Evaluation note* Diagnosis Hyponatremia- Primary Hyposmolality and/or hyponatremia Primary hypertension Unspecified essential hypertension Primary hypertension- Primary Unspecified essential hypertension Hyponatremia Hyposmolality and/or hyponatremia Pre-operative clearance Unspecified pre-operative examination documented in this encounter [facility] Work Phone: Evaluation note* Diagnosis Hyponatremia- Primary Hyposmolality and/or hyponatremia Primary hypertension Unspecified essential hypertension UTI (urinary tract infection), uncomplicated- Primary Urinary tract infection, site not specified Periumbilical abdominal pain Abdominal pain, periumbilic documented in this encounter [facility] Work Phone: History of Present illness Narrative* Patient is a 51 y.o. female who is here today to establish care. * Patient reports that she has VADIM but her machine was recalled and she is still using it, she wants a new order so she can pay out of pocket. I discussed that they were all recalled plus supply issuesI am not sure that she will be able to get one. * She has a history of HTN, multiple "mini-strokes", Type II DM, Thyroid disease, has a goiter than has had a biopsy in the past which was normal. * Hx of strokes - she has some memory and concentration issues, has seen neurology in the past, was on low dose asa currently. * DMII - diagnosed in the last few years, she is more diet controlled, I see her last a1c was 10.6% in Jun * She complains of a foul smelling urine that she has had for 2 years, describes it as dark and foamy. She has not seen a urologist. * She has a history of Bipolar depression, hx of anxiety, she has been seeing Dr Gomes, in [place], [place], she has been seeing him for years, she has been off Klonopin since February of 2021, she is currently on Mirtazapine 7.5mg po daily, effexor er 150mg pobid * Does not know her fathers side history of any of her siblings. [facility] Work Phone: History of Present illness Narrative* Patient being seen in follow-up for hypertension and hyponatremia * Labs reviewed * Glucose 380 * Sodium 131, potassium 4.1, chloride 95, bicarb 23 * Renal function with BUN of 12 and creatinine of 0.6 * She states that she is doing much better * She is not as drowsy * She is watching her blood pressure at home the beginning of the month that she was routinely in sul039o and 180s, at this time she is running in the 140s to the 160s systolically [facility] 3 DO Work Phone: Hospital Discharge instructions* Attachments The following attachments cannot be sent through Care Everywhere. * Abdominal pain in adults ED discharge instructions (Lithuanian) [facility]: Reason for referral (narrative)* Consultation (Routine) - Authorized Specialty Diagnoses / Procedures Referred By Daysi yan Referred To Contact Primary Care Procedures Follow Up In Primary Care - Established James Sahu, DO [address] [facility] [place] [address] Referral ID Status Reason Start Date Expiration Date V isits Requested Visits Authorized [id number] Authorized 04/15/2023 10/12/2023 1 1 [facility] Work Phone: Reason for visit Narrative* Imaging (Routine) - Authorized Specialty Diagnoses / Procedures Referred By Contzaheer t Referred To Contact Radiology Diagnoses Encounter for screening mammogram for malignant neoplasm of breast Procedures BI mammo bilateral screening tomosynthesis Suzanne Arroyo, [employer] [address] [facility] [place] [address] Phone: tel: fax: Referral ID Status Reason Start Date Expiration Date Visits Requested Visits Authorized [id number] Authorized Perform Procedure 09/28/2024 09/28/2025 1 1 [facility] Work Phone: Hospital Course Discharge Summary No Discharge Summary Informa tion Discharge Instructions Discharge Instructions No Discharge Instructions Assessments Diagnosis Acute URI- Primary Acute upper respiratory infections of unspecified site Dehydration Hyperglycemia Other abnormal glucose Hyponatremia Hyposmolality and/or hyponatremia Advance Directives No Advanced Directives Records FoundDocuments on File Type Date Recorded Patient Chronic Condition Nurse Expl anation Advance Directives and Livin g Will 10/23/2020 6:28 PM Summary Purpose Family History No Family History Records FoundUnknown Family Member Name Dates Details Family history of dementia: Other(V17.2, Z81.8) Status:Active Family history of Alzheimer' s disease: Other(V17.2, Z82.0) Status:Active Family history of cerebrovas cular accident (CVA): Other(V17.1, Z82.3) Status:Active Psychiatric diagnosis: Other Status:Active Family history of diabetes m ellitus: Other(V18.0, Z83.3) Status:Active DM II (diabetes mellitus, ty pe II), controlled: Mother Status:Active Unknown Family Member Name Dates Details Family history of dementia: Other(V17.2, Z81.8) Status:Active Family history of Alzheimer' s disease: Other(V17.2, Z82.0) Status:Active Family history of cerebrovas cular accident (CVA): Other(V17.1, Z82.3) Status:Active Psychiatric diagnosis: Other Status:Active Family history of diabetes m ellitus: Other(V18.0, Z83.3) Status:Active DM II (diabetes mellitus, ty pe II), controlled: Mother Status:Active Unknown Family Member Name Dates Details Family history of dementia: Other(V17.2, Z81.8) Status:Active Family history of Alzheimer' s disease: Other(V17.2, Z82.0) Status:Active Family history of cerebrovas cular accident (CVA): Other(V17.1, Z82.3) Status:Active Psychiatric diagnosis: Other Status:Active Family history of diabetes m ellitus: Other(V18.0, Z83.3) Status:Active DM II (diabetes mellitus, ty pe II), controlled: Mother Status:Active Unknown Family Member Name Dates Details DM II (diabetes mellitus, ty pe II), controlled: Mother Status:Active Family history of dementia: Other(V17.2, Z81.8) Status:Active Family history of Alzheimer' s disease: Other(V17.2, Z82.0) Status:Active Family history of cerebrovas cular accident (CVA): Other(V17.1, Z82.3) Status:Active Psychiatric diagnosis: Other Status:Active Family history of diabetes m ellitus: Other(V18.0, Z83.3) Status:Active Unknown Family Member Name Dates Details Family history of dementia: Other(V17.2, Z81.8) Status:Active Family history of Alzheimer' s disease: Other(V17.2, Z82.0) Status:Active Family history of cerebrovas cular accident (CVA): Other(V17.1, Z82.3) Status:Active Psychiatric diagnosis: Other Status:Active Family history of diabetes m ellitus: Other(V18.0, Z83.3) Status:Active DM II (diabetes mellitus, ty pe II), controlled: Mother Status:Active Unknown Family Member Name Dates Details DM II (diabetes mellitus, ty pe II), controlled: Mother Status:Active Family history of diabetes m ellitus: Other(V18.0, Z83.3) Status:Active Psychiatric diagnosis: Other Status:Active Family history of cerebrovas cular accident (CVA): Other(V17.1, Z82.3) Status:Active Family history of Alzheimer' s disease: Other(V17.2, Z82.0) Status:Active Family history of dementia: Other(V17.2, Z81.8) Status:Active Unknown Family Member Name Dates Details Family history of dementia: Other(V17.2, Z81.8) Status:Active Family history of Alzheimer' s disease: Other(V17.2, Z82.0) Status:Active Family history of cerebrovas cular accident (CVA): Other(V17.1, Z82.3) Status:Active Psychiatric diagnosis: Other Status:Active Family history of diabetes m ellitus: Other(V18.0, Z83.3) Status:Active DM II (diabetes mellitus, ty pe II), controlled: Mother Status:Active Unknown Family Member Name Dates Details Family history of dementia: Other(V17.2, Z81.8) Status:Active Family history of Alzheimer' s disease: Other(V17.2, Z82.0) Status:Active Family history of cerebrovas cular accident (CVA): Other(V17.1, Z82.3) Status:Active Psychiatric diagnosis: Other Status:Active Family history of diabetes m ellitus: Other(V18.0, Z83.3) Status:Active DM II (diabetes mellitus, ty pe II), controlled: Mother Status:Active Unknown Family Member Name Dates Details Family history of dementia: Other(V17.2, Z81.8) Status:Active Family history of Alzheimer' s disease: Other(V17.2, Z82.0) Status:Active Family history of cerebrovas cular accident (CVA): Other(V17.1, Z82.3) Status:Active Psychiatric diagnosis: Other Status:Active Family history of diabetes m ellitus: Other(V18.0, Z83.3) Status:Active DM II (diabetes mellitus, ty pe II), controlled: Mother Status:Active Unknown Family Member Name Dates Details Family history of dementia: Other(V17.2, Z81.8) Status:Active Family history of Alzheimer' s disease: Other(V17.2, Z82.0) Status:Active Family history of cerebrovas cular accident (CVA): Other(V17.1, Z82.3) Status:Active Psychiatric diagnosis: Other Status:Active Family history of diabetes m ellitus: Other(V18.0, Z83.3) Status:Active DM II (diabetes mellitus, ty pe II), controlled: Mother Status:Active Unknown Family Member Name Dates Details DM II (diabetes mellitus, ty pe II), controlled: Mother Status:Active Family history of diabetes m ellitus: Other(V18.0, Z83.3) Status:Active Psychiatric diagnosis: Other Status:Active Family history of cerebrovas cular accident (CVA): Other(V17.1, Z82.3) Status:Active Family history of Alzheimer' s disease: Other(V17.2, Z82.0) Status:Active Family history of dementia: Other(V17.2, Z81.8) Status:Active Unknown Family Member Name Dates Details Family history of dementia: Other(V17.2, Z81.8) Status:Active Family history of Alzheimer' s disease: Other(V17.2, Z82.0) Status:Active Family history of cerebrovas cular accident (CVA): Other(V17.1, Z82.3) Status:Active Psychiatric diagnosis: Other Status:Active Family history of diabetes m ellitus: Other(V18.0, Z83.3) Status:Active DM II (diabetes mellitus, ty pe II), controlled: Mother Status:Active Unknown Family Member Name Dates Details Family history of dementia: Other(V17.2, Z81.8) Status:Active Family history of Alzheimer' s disease: Other(V17.2, Z82.0) Status:Active Family history of cerebrovas cular accident (CVA): Other(V17.1, Z82.3) Status:Active Psychiatric diagnosis: Other Status:Active Family history of diabetes m ellitus: Other(V18.0, Z83.3) Status:Active DM II (diabetes mellitus, ty pe II), controlled: Mother Status:Active Unknown Family Member Name Dates Details Family history of diabetes m ellitus: Other(V18.0, Z83.3) Status:Active DM II (diabetes mellitus, ty pe II), controlled: Mother Status:Active Psychiatric diagnosis: Other Status:Active Family history of cerebrovas cular accident (CVA): Other(V17.1, Z82.3) Status:Active Family history of Alzheimer' s disease: Other(V17.2, Z82.0) Status:Active Family history of dementia: Other(V17.2, Z81.8) Status:Active Unknown Family Member Name Dates Details Family history of dementia: Other(V17.2, Z81.8) Status:Active Family history of Alzheimer' s disease: Other(V17.2, Z82.0) Status:Active Family history of cerebrovas cular accident (CVA): Other(V17.1, Z82.3) Status:Active Psychiatric diagnosis: Other Status:Active Family history of diabetes m ellitus: Other(V18.0, Z83.3) Status:Active DM II (diabetes mellitus, ty pe II), controlled: Mother Status:Active Unknown Family Member Name Dates Details Family history of dementia: Other(V17.2, Z81.8) Status:Active Family history of Alzheimer' s disease: Other(V17.2, Z82.0) Status:Active Family history of cerebrovas cular accident (CVA): Other(V17.1, Z82.3) Status:Active Psychiatric diagnosis: Other Status:Active Family history of diabetes m ellitus: Other(V18.0, Z83.3) Status:Active DM II (diabetes mellitus, ty pe II), controlled: Mother Status:Active Unknown Family Member Name Dates Details Family history of dementia: Other(V17.2, Z81.8) Status:Active Family history of Alzheimer' s disease: Other(V17.2, Z82.0) Status:Active Family history of cerebrovas cular accident (CVA): Other(V17.1, Z82.3) Status:Active Psychiatric diagnosis: Other Status:Active Family history of diabetes m ellitus: Other(V18.0, Z83.3) Status:Active DM II (diabetes mellitus, ty pe II), controlled: Mother Status:Active Unknown Family Member Name Dates Details Family history of dementia: Other(V17.2, Z81.8) Status:Active Family history of Alzheimer' s disease: Other(V17.2, Z82.0) Status:Active Family history of cerebrovas cular accident (CVA): Other(V17.1, Z82.3) Status:Active Psychiatric diagnosis: Other Status:Active Family history of diabetes m ellitus: Other(V18.0, Z83.3) Status:Active DM II (diabetes mellitus, ty pe II), controlled: Mother Status:Active Unknown Family Member Name Dates Details Family history of dementia: Other(V17.2, Z81.8) Status:Active Family history of Alzheimer' s disease: Other(V17.2, Z82.0) Status:Active Family history of cerebrovas cular accident (CVA): Other(V17.1, Z82.3) Status:Active Psychiatric diagnosis: Other Status:Active Family history of diabetes m ellitus: Other(V18.0, Z83.3) Status:Active DM II (diabetes mellitus, ty pe II), controlled: Mother Status:Active Unknown Family Member Name Dates Details Family history of dementia: Other(V17.2, Z81.8) Status:Active Family history of Alzheimer' s disease: Other(V17.2, Z82.0) Status:Active Family history of cerebrovas cular accident (CVA): Other(V17.1, Z82.3) Status:Active Psychiatric diagnosis: Other Status:Active Family history of diabetes m ellitus: Other(V18.0, Z83.3) Status:Active DM II (diabetes mellitus, ty pe II), controlled: Mother Status:Active Unknown Family Member Name Dates Details Family history of dementia: Other(V17.2, Z81.8) Status:Active Family history of Alzheimer' s disease: Other(V17.2, Z82.0) Status:Active Family history of cerebrovas cular accident (CVA): Other(V17.1, Z82.3) Status:Active Psychiatric diagnosis: Other Status:Active Family history of diabetes m ellitus: Other(V18.0, Z83.3) Status:Active DM II (diabetes mellitus, ty pe II), controlled: Mother Status:Active Chief Complaint * 51 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 Cornelius Thursday * SUPERVISOR MAPPING- Hospital follow-up * Lab review 05/14/2022 Patient here today for 1 week fu on new BP medication. States she has noticed a decrease.2 week follow-up- HTN1 MO FUV- HTN AND HYPONATREMIA* 52 y/o female presents for 6 month f/u * BS 206 prior to her visit * She had a donut with her coffee this morning * Pt states she cannot do insulin injections * Rash on B/L hands since 11/2021 * Dry blistering rash (dyshidrotic eczema)? Additional Source Comments Reason for Visit (unrecogniz ed section and content) Reason Comments Dysuria Nausea Reason Comments Sinusitis Tx with Cefdinir 300 ; slowing getting betterStill has mucus in her head Follow-up 9 month Reason Comments Urinary Frequency Pt states urinary fr equency during the night and strong smelling urine during the day for the past 4 days. Today achy, sweaty, clammy and bilat mid back pain. Reason Comments Follow-up Review labs Abnormal Sodium Reason Comments UTI UTI sx for about 1 w [place]. Pt has back pain, frequency. Reason Comments Earache Left ear pain x 1 da y Reason Comments URI Sob, congestion, lia rrhea x 1 day Reason Comments Establish Care Sinusitis Cyst Specialty Diagnoses / Procedures Referred By Contac t Referred To Contact Diagnoses Acute low back pain without sciatica, unspecified back pain laterality Suzanne Arroyo, EARLY CHILDHOOD LEAD TEACHER-SYSTEMS SUPPORT ENGINEER [address] [facility] [place] [address] Phone: tel: fax: Referral ID Status Reason Start Date Expiration Date V isits Requested Visits Authorized [id number] Pending Review 09/28/2024 09/28/2025 1 1 Reason Comments Follow-up 6 month follow up ne eds labs orderPHQ2/9:18 Reason Comments Pre-op Exam Scheduled for 06/12 Reason Comments Pain C/o bilateral lower back pain, wrapping around into abd, along with aching in her bilateral hips, legs, and shoulders. Pt reports she had a spinal fusion between L2 and L4 on Mon. Reports taking prescribed pain meds around 2300 without relief Difficulty Urinating Pt also reports dif ficulty urinating, reports hx of frequent UTIs. Malcom Garcia MD - 10/23/2020 6:46 PM EDTBDaniela echavarria RN - 10/23/2020 6:11 PM EDT ED Notes (unrecognized secti on and content) ED PROVIDER NOTE [facility] EMERGENCY DEPARTMENT NAME: Reinier Mendoza AGE: 50 y.o. : 1970 VISIT DATE: 10/23/2020 CSN: [id number] PCP: Physician No Chief Complaint Patient presents with Dysuria Nausea HPI HPI: 50-year-old female, with history of diabetes, hypertension, VADIM, tobacco use, now presenting for evaluation of suspected UTI. Patient reports gradual onset of symptoms over the last 1.5 weeks including low-grade subjective fever, nausea (without vomiting), fatigue, cloudy foul-smelling urine, urinary frequency, bilateral maxillary sinus pressure, productive cough with white sputum. Patient feels dehydrated despite drinking lemon water. Contact w/ confirmed/suspected COVID19: No Severity: Moderate Location: as above* Radiating to: only as above; otherwise none* Exacerbated by: only as above; otherwise none* Relieved by: only as above; otherwise none* Associated with: only as above; otherwise none* Historian(s) deny any other concerns. ROS negative except as above. I have reviewed and agree with the available nursing notes except as otherwise reported. I have reviewed available medical records. REVIEW OF SYSTEMS: Const: Subjective fever No medical lethargy Eyes: No redness No discharge ENT: No otalgia congestion No sore throat CV: No chest discomfort No syncope Resp: cough No SOB GI: No Abdo pain nausea No vomiting No diarrhea No constipation : Foul-smelling cloudy urine Urinary frequency MSK: Negative except as noted in HPI Skin: No rash Neuro: Nl mental status No RICHEY Hem: No bleeding/clotting problems Psych: Nl behavior except as otherwise noted Special isolation precautions are in place with signage outside this patient's room. This transitional care manager performs hand hygiene and enters the patient room wearing: ? gloves ? an appropriately fitting (N-95, PAPR, Aura) mask ? face shield ? protective gown to provide care. See documentation for the care provided. PHYSICAL EXAM: Patient Vitals for the past 24 hrs: BP Temp Temp src Pulse Resp SpO2 Height Weight 10/23/20 1811 (!) 159/101 98.2 F (36.8 C) Oral 92 18 99 % 5' 6.5" 102.1 kg (225 lb) VS Reviewed. Constitutional: Non-toxic Head: Normocephalic Atraumatic Eyes: PERRL EOMi No hemorrhage No injection No discharge ENT: ? Ears ? ? Nose ? Nasal congestion ? Throat/Mouth ? Mucus membranes moist ? No pharyngeal injection ? No oral / oropharyngeal edema ? No tonsillar enlargement ? No exudate ? No signs of SENIOR INFORMATICA ETL DEVELOPER / deep-space infection ? No significant gingivitis ? No induration/Carmelo's ? Sinuses ? NTTP ? Mastoids ? R nl ? L nl Neck: Nl ROM No meningeal signs Trachea midline No objective swelling No stridor No JVD No significant lymphadenopathy No palpable masses Cardiovascular: RRR Nl heart sounds Respiratory: No resp distress Symmetric chest movement No retractions No accessory muscles CTAB Not diminished or absent Gastrointestinal: Non-distended Nl bowel sounds Soft NTTP No guarding No rebound No pulsatile mass Genitourinary: Deferred Back Upper Extremities: Nl inspection Nl peripheral pulses Lower Extremities: No pitting edema NTTP No cording Neurologic: Alert Answers questions appropriately No focal deficits Psych: Appropriate Skin: Warm Dry Nl color No acute/emergency findings unless otherwise specified Past Medical History: Diagnosis Date Bipolar 1 disorder (HCC) Diabetes mellitus (HCC) DJD (degenerative joint disease) Hyperlipidemia Hypertension PTSD (Post-Traumatic Stress Disorder) Past Surgical History: Procedure Laterality Date BACK SURGERY History reviewed. No pertinent family history. Social History Socioeconomic History Marital status: Single Spouse name: Not on file Number of children: Not on file Years of education: Not on file Highest education level: Not on file Occupational History Not on file Social Needs Financial resource strain: Not on file Food insecurity Worry: Not on file Inability: Not on file Transportation needs Medical: Not on file Non-medical: Not on file Tobacco Use Smoking status: Current Every Day Smoker Packs/day: 1.50 Types: Cigarettes Substance and Sexual Activity Alcohol use: Yes Comment: socially Drug use: No Sexual activity: Not on file Lifestyle Physical activity Days per week: Not on file Minutes per session: Not on file Stress: Not on file Relationships Social connections Talks on phone: Not on file Gets together: Not on file Attends anabaptist service: Not on file Active member of club or organization: Not on file Attends meetings of clubs or organizations: Not on file Relationship status: Not on file Other Topics Concern Not on file Social History Narrative Not on file Previous Medications Medication Sig amLODIPine (NORVASC) 10 MG tablet ARIPiprazole (ABILIFY) 10 MG tablet Take 10 mg by mouth daily. aspirin 81 MG EC tablet calcium carbonate-vitamin D2 500 mg(1,250mg) -200 unit tablet Take 1 tablet by mouth 2 (two) times a day. carBAMazepine (TEGRETOL) 200 mg tablet Take 200 mg by mouth 2 (two) times a day. carvediloL (COREG) 3.125 MG tablet clonazePAM (KLONOPIN) 1 MG tablet Take 1 mg by mouth 2 (two) times a day as needed for anxiety. gemfibrozil (LOPID) 600 MG tablet Take 600 mg by mouth 2 (two) times a day before meals. losartan-hydrochlorothiazide (HYZAAR) 100-25 mg per tablet metFORMIN (GLUCOPHAGE) 500 MG tablet Take 500 mg by mouth 2 (two) times a day with meals. metoprolol succinate (TOPROL-XL) 50 MG 24 hr tablet Take 50 mg by mouth daily. metoprolol tartrate (LOPRESSOR) 100 MG tablet Take 100 mg by mouth 2 (two) times a day. venlafaxine (EFFEXOR) 100 MG tablet Take 300 mg by mouth daily. Allergies Allergen Reactions Sulfa (Sulfonamide Antibiotics) Hives Review of Systems Patient Vitals for the past 24 hrs: BP Temp Temp src Pulse Resp SpO2 Height Weight 10/23/20 1811 (!) 159/101 98.2 F (36.8 C) Oral 92 18 99 % 5' 6.5" 102.1 kg (225 lb) Physical Exam Laboratory & Radiographic Imaging (if done): Results for orders placed or performed during the hospital encounter of 10/23/20 POC CBC and Differential Result Value Ref Range WBC 7.42 4.50 - 11.00 K/mcL RBC 4.52 4.00 - 5.20 M/mcL Hemoglobin 14.1 12.0 - 16.0 g/dL Hematocrit 41.0 36.0 - 46.0 % MCV 90.7 80.0 - 100.0 fL MCH 31.2 26.0 - 34.0 pg MCHC 34.4 31.0 - 37.0 g/dL RDW - CV 12.2 11.6 - 14.8 % Platelets 259 150 - 400 K/mcL MPV 9.2 (L) 9.4 - 12.4 fL Neutrophils 56.2 % Lymphocytes 32.5 % Monocytes 8.1 % Eosinophils 2.2 % Basophils 0.3 % IG Percent 0.70 % Neutrophils Abs 4.18 1.70 - 7.00 K/mcL Lymphocytes Abs 2.41 0.90 - 4.00 K/mcL Monocytes Abs 0.60 0.30 - 0.90 K/mcL Eosinophils Abs 0.16 0.00 - 0.50 K/mcL Basophils Abs 0.02 0.00 - 0.30 K/mcL IG Absolute 0.05 0.00 - 0.30 K/mcL COVID-19, Molecular Specimen: Nasopharyngeal; Swab Result Value Ref Range SARS-CoV-2 Not Detected Not Detected POC Venous Blood Gases with Full Panel Result Value Ref Range pH, Venous 7.39 7.32 - 7.42 pCO2, Oliver 41.6 41.0 - 51.0 mm Hg pO2, Oliver 48 (H) 25 - 40 mm Hg Base Excess, Oliver 0.0 -2.0 - 2.0 HCO3, Oliver 25.2 24.0 - 28.0 mmol/L O2 Sat, Oliver 83.1 (H) 40.0 - 70.0 % Hemoglobin, Calculated 15.4 12.0 - 16.0 g/dL Hematocrit 45 36 - 46 % Glucose 203 (H) 65 - 99 mg/dL BUN 17 8 - 25 mg/dL Creatinine 0.81 0.40 - 1.10 mg/dL Sodium 132 (L) 135 - 145 mmol/L Potassium 4.2 3.5 - 5.1 mmol/L Chloride 98 98 - 108 mmol/L Lactate 1.9 0.6 - 2.0 mmol/L Ionized Calcium 4.5 4.5 - 5.3 mg/dL GFR 84 >=60 mL/min/1.73 m2 POC Urinalysis Dipstick, Auto Result Value Ref Range Spec Grav, UA 1.020 1.005 - 1.025 pH, UA 7.0 5.0 - 7.0 Protein, UA 100 (A) Negative mg/dL Glucose, UA Negative Negative mg/dL Ketones, UA Negative Negative mg/dL Bilirubin, UA Negative Negative Urobilinogen, UA 0.2 <2.0 mg/dL Blood, UA Negative Negative Nitrite, UA Negative Negative Leukocyte Esterase, UA Negative Negative POC Liver Panel Plus Result Value Ref Range Albumin 3.4 3.2 - 5.2 g/dL Alkaline Phosphatase 67 40 - 150 U/L ALT (SGPT) 37 0 - 40 U/L AST (SGOT) 39 0 - 45 U/L Bilirubin, Total 0.6 0.0 - 1.3 mg/dL Total Protein 7.6 6.0 - 8.0 g/dL Amylase 56 25 - 115 U/L GGT 75 (H) 7 - 33 U/L POC Influenza A/B Result Value Ref Range POC Rapid Influenza A Ag Not Detected Not Detected POC Influenza B Ag Not Detected Not Detected No orders to display Procedures MDM DDX Including but not limited to: UTI, pyelonephritis COVID19 Influenza Other viral infection Sepsis unlikely but possible; will check a CBC, VBG/lactate but I suspect this will be negative No indication of: Bacterial Pharyngitis Bacterial Sinusitis Bacterial Bronchitis Bacterial PNA Deep infection of neck Epiglottitis Tracheitis Tick-borne infection CHF ACS ED Course as of Oct 23 1933 Tue Oct 23, [id number] WBC: 7.42 [GN] 1844 HGB: 14.1 [GN] 1844 Platelets: 259 [GN] 1844 pH, Venous: 7.39 [GN] 1844 pCO2, Oliver: 41.6 [GN] 184 pO2, Oliver(!): 48 [GN] 1844 HCO3, Oliver: 25.2 [GN] 184 Lactate: 1.9 [GN] 1844 Glucose(!): 203 [GN] 1844 Sodium(!): 132 [GN] 1855 Proteinuria, otherwise unremarkable POC Urinalysis Dipstick, Auto(!) [GN] 1855 Modestly elevated GGT with otherwise normal LFTs POC Liver Panel Plus(!) [GN] 190 POC Rapid Influenza A Ag: Not Detected [GN] 190 POC Influenza B Ag: Not Detected [GN] 1918 SARS-CoV-2: Not Detected [GN] 1932 Patient is doing well. Discussed her lab results with her at the bedside. At this time, she seems to have a viral infection, nonspecific. We discussed her diet and blood sugar control; she reports that she usually runs in the low 100s but did have some store-bought barbecue sauce tonight which has sugar. [GN] ED Course User Index [GN] Malcom Garcia MD Considered appropriately wide DDx. At this time, acutely dangerous emergency conditions found to be unlikely based on history, exam, vitals and any testing, except as otherwise specified, and patient is appropriate for outpatient management. Pt will return to the ED if condition is worsening in any way, or if new sx arise. They understand, are appreciative and comfortable with outpatient plan including follow-up and return ED recommendations as discussed. Pt appears nontoxic, well-hydrated and comfortable. COVID-19 Testing: NEGATIVE. Even so, we cannot definitively rule out COVID-19. I provided education and recommendations on home care and social distancing to help prevent the spread of illness. . Clinical Impression: 1. Acute URI 2. Dehydration 3. Hyperglycemia 4. Hyponatremia ED Disposition ED Disposition Condition Comment Discharge Stable Reinier Mendoza discharged to home/self care in stable condition. Follow-up Information 1. your regular primary care provider, or a primary care (or urgent care) clinic of your choice. Why: For recheck, to make sure that you are improving Contact information for after-discharge care Follow-up information has not been specified. Malcom Garcia MD 10/23/201933 Pt arrives with reports of fatigue and "I think I have a UTI because my urine is dark and foamy." Pt alert & oriented x4 and appears in no distress. Pt respirations equal and unlabored. Pt able to talk in clear and complete sentences. documented in this encounter INFORMATION SOURCE (unrecogn ized section and content) DATE CREATED AUTHOR 10/29/2020 [facility] DATE CREATED AUTHOR AUTHOR'S ORGANIZ ATION 10/31/2021 [facility] DATE CREATED AUTHOR AUTHOR'S ORGANIZ ATION 05/13/2022 [facility] DATE CREATED AUTHOR AUTHOR'S ORGANIZ ATION 07/02/2022 [facility] DATE CREATED AUTHOR AUTHOR'S ORGANIZ ATION 10/01/2022 [employer] DATE CREATED AUTHOR AUTHOR'S ORGANIZ ATION 03/12/2023 [facility] DATE CREATED AUTHOR AUTHOR'S ORGANIZ ATION 06/08/2025 [facility] DATE CREATED AUTHOR AUTHOR'S ORGANIZ ATION 06/09/2025 [facility] DATE CREATED AUTHOR AUTHOR'S ORGANIZ ATION 06/10/2025 [facility] DATE CREATED AUTHOR AUTHOR'S ORGANIZ ATION 06/16/2025 [facility] DATE CREATED AUTHOR AUTHOR'S ORGANIZ ATION 06/19/2025 [facility] Care Teams (unrecognized sec tion and content) Drive Thru Order Taker Relationship Specialty Start Date End Date James Sahu DO [address] [facility] [place] [address] PCP - General 09/10/21 James Sahu DO [address] [facility] [place] [address] PCP - MMO ACO PCP 11/08/21 Drive Thru Order Taker Relationship Specialty Start Date End Date James Sahu DO [address] [facility] [place] [address] PCP - General 09/10/21 James Sahu DO [address] [facility] [place] [address] PCP - MMO ACO PCP 11/08/21 Drive Thru Order Taker Relationship Specialty Start Date End Date James Sahu DO [address] [facility] [place] [address] PCP - General 09/10/21 James Sahu, DO [address] [facility] [place] [address] PCP - MMO ACO PCP 11/08/21 Drive Thru Order Taker Relationship Specialty Start Date End Date James Sahu DO [address] [place] [address] PCP - General 09/10/21 James Sahu, DO [address] [facility] [place] [address] PCP - MMO ACO PCP 11/08/21 Drive Thru Order Taker Relationship Specialty Start Date End Date James Sahu, [address] [facility] [place] [address] PCP - General 09/10/21 James Sahu, DO [address] [facility] [place] [address] PCP - MMO ACO PCP 11/08/21 Drive Thru Order Taker Relationship Specialty Start Date End Date James Sahu, DO [address] [facility] [place] [address] PCP - General 09/10/21 ObJames moralez, DO [address] [facility] [place] [address] PCP - MMO ACO PCP 11/08/21 Drive Thru Order Taker Relationship Specialty Start Date End Date James Sahu DO [address] [facility] [place] [address] PCP - General 09/10/21 James Sahu, DO [address] [facility] [place] [address] PCP - MMO ACO PCP 11/08/21 Drive Thru Order Taker Relationship Specialty Start Date End Date James Sahu DO [address] [facility] [place] [address] PCP - General 09/10/21 James Sahu DO [address] [facility] [place] [address] PCP - MMO ACO PCP 11/08/21 Drive Thru Order Taker Relationship Specialty Start Date End Date James Sahu PCP - General 09/10/21 ObJames moralez PCP - MMO ACO PCP 11/08/21 Drive Thru Order Taker Relationship Specialty Start Date End Date Emilie Cornelius, EARLY CHILDHOOD LEAD TEACHER-SYSTEMS SUPPORT ENGINEER, DNP [facility] [address] [address] PCP - MMO ACO PCP 01/08/25 Suzanne Arroyo, EARLY CHILDHOOD LEAD TEACHER-SYSTEMS SUPPORT ENGINEER [address] [facility] [place] [address] PCP - General Family Medicine 03/27/25 Drive Thru Order Taker Relationship Specialty Start Date End Date Emilie Cornelius, EARLY CHILDHOOD LEAD TEACHER-SYSTEMS SUPPORT ENGINEER, DNP [address] [facility] [address] [place], [place] [id number] PCP - MMO ACO PCP 01/08/25 Suzanne Arroyo, EARLY CHILDHOOD LEAD TEACHER-SYSTEMS SUPPORT ENGINEER [address] [facility] [place] [address] PCP - General Family Medicine 03/27/25 Drive Thru Order Taker Relationship Specialty Start Date End Date Suzanne Arroyo, EARLY CHILDHOOD LEAD TEACHER-SYSTEMS SUPPORT ENGINEER [address] [facility] [place] [id number] PCP - General Family Medicine 03/27/25 Scheduled Active and Recently Administ ered Medications (unrecognized section and content) Medication Order 06/15/2024 06/16/2024 06/17/2024 cefTRIAXone (Rocephin) 2 g in dextrose (iso) IV 50 mL (COMPLETED) 2 g, intravenous, at 100 mL/hr, Administer over 30 Minutes, Once, On Thu06/17/24 at 1430, For 1 dose, premix bag, Suspected Indication (Select all that apply): Urinary Tract Infection, Type of Therapy: Empiric, Type of Urinary Tract Infection: Uncomplicated, Indications: Urinary Tract Infection 1443 (New Bag - Prov ider: January Preston RN)1516 (Stopped - Provider: Grzegorz Owen RN) iohexol (OMNIPaque) 350 mg iodine/mL solution 70 mL (COMPLETED) 70 mL, intravenous, Once in imaging, Starting on Thu06/17/24 at 1345, For 1 dose 1347 (Given - Provid er: Sade Fooet) ketorolac (Toradol) injection 30 mg (COMPLETED) 30 mg, intravenous, Once, On Thu06/17/24 at 1215, For 1 dose 1238 (Given - Provid er: Naheed Villatoro RN) sodium chloride 0.9 % bolus 1,000 mL (COMPLETED) 1,000 mL, intravenous, at 2,000 mL/hr, Administer over 30 Minutes, Once, On Thu06/17/24 at 1430, For 1 dose 1443 (New Bag - Prov ider: January Preston RN)1542 (Stopped - Provider: Grzegorz Owen RN) sodium chloride 0.9 % bolus 1,000 mL (COMPLETED) 1,000 mL, intravenous, at 2,000 mL/hr, Administer over 30 Minutes, Once, On Thu06/17/24 at 1515, For 1 dose 1543 (New Bag - Prov ider: Grzegorz Owen RN)1645 (Stopped - Provider: Liliana Rendon RN) Scheduled Medication Order 06/14/2025 06/15/2025 06/16/2025 cefTRIAXone (Rocephin) 1 g in dextrose (iso) IV 50 mL (COMPLETED) 1 g, intravenous, at 100 mL/hr, Administer over 30 Minutes, Once, On Thu06/16/25 at 0135, For 1 dose, premix bag, Suspected Indication (Select all that apply): Urinary Tract Infection, Type of Therapy: Empiric, Type of Urinary Tract Infection: Uncomplicated, Indications: Urinary Tract Infection 0204 (New Bag - Prov ider: Yuliya Arellano RN)0241 (Stopped - Provider: Yuliya Arellano RN) iohexol (OMNIPaque) 350 mg iodine/mL solution 70 mL (COMPLETED) 70 mL, intravenous, Once in imaging, Starting on Thu06/16/25 at 0233, For 1 dose 0243 (Given - Provid er: Jadon Calderon) ketorolac (Toradol) injection 15 mg (COMPLETED) 15 mg, intravenous, Once, On Thu06/16/25 at 0135, For 1 dose 0200 (Given - Provid er: Yuliya Arellano RN) FOR RECORDS PERTAINING TO PATIENTS WHO ARE OR HAVE BEEN ENROLLED IN A CHEMICAL DEPENDENCY/SUBSTANCEABUSE PROGRAM, SOME INFORMATION MAY BE OMITTED. This clinical summary was aggregated from multiple sources. Caution should be exercised in using it in the provision of clinical care. This summary normalizes information from multiple sources, and as a consequence, information in this document may materially change the coding, format and clinical context of patient data. In addition, data may be omitted in some cases. CLINICAL DECISIONS SHOULD BE BASED ON THE PRIMARY CLINICAL RECORDS. [facility]. provides no warranty or guarantee of the accuracy or completeness of information in this document.
[2025-06-19] MEDS: MELATONIN 10 MG TABLET 5 MG PO (23:12)
[2025-06-19] MEDS: Magnesium Chloride 64 MG Delay Rel.Tablet 128 MG PO (23:13)
[2025-06-19] MEDS: Pioglitazone Hydrochloride 30 MG Tablet PO (23:13)
--- NOTE | 2025-06-19 23:24 | PHA.PHARE_ITS ---
Consult Antibiotic Management Pharmacy has been consulted to manage selected antibiotic: Vancomycin Type of Intervention Type of Consult: New start Suspected Infection Suspected Infection: Skin/Soft tissue Prior Doses of Antibiotics Prior Doses of Antibiotics Received/Current Regimen: received vanc 2000mg IV in E.R. starting at 21:28 tonight Labs Labs: Sodium 122 mmol/L (133-145) L 06/19/25 13:30 Potassium 4.4 mmol/L (3.3-5.1) 06/19/25 13:30 Chloride 85 mmol/L (98-108) L 06/19/25 13:30 Carbon Dioxide 23.0 mmol/L (21.0-32.0) 06/19/25 13:30 Anion Gap 13 (5-15) 06/19/25 13:30 BUN 16 mg/dL (4-19) 06/19/25 13:30 Creatinine 0.49 mg/dL (0.70-1.20) L 06/19/25 13:30 Est GFR (MDRD) Non-Af 111 (>60) 06/19/25 13:30 BUN/Creatinine Ratio 31.7 RATIO (10-20) H 06/19/25 13:30 Glucose 159 mg/dL (70-99) H 06/19/25 13:30 Dosing Weight Weight used for dosin.3 kg Estimated Creatinine Clearance Estimated Creatinine Clearance: 160ml/min Goal Trough Goal Trough: 10-15 mcg/mL Pharmacy Plan for Drug Dosing Pharmacy Plan for Drug Dosing: Starting 12 hours after the E.R. dose continue with vanc 1750mg IV q12h per [facility] dosing protocol. Check a trough before the 4th overall dose. Pharmacy Service will continue to monitor and adjust dosing as required. Follow-Up Labs Follow-Up Labs: Trough: Vancomycin Date/Time Labs Ordered Labs to be done on [date and time ordered]: 06/21/25 08:30
[2025-06-20 04:02] VITALS: BP 154/87; PULSE 80; RESP 16; TEMP 36.3; O2SAT 94
[2025-06-20] MEDS: 0.9% Saline Lock 10 ML Syringe IV ×4 (06:33→21:42)
[2025-06-20 06:45] LABS: Hematocrit 30.9 % (37-47); Hemoglobin 11.0 g/dL (12.0-15.0); Immature Granulocytes Count 0.060 X10^3/uL (0.0-0.0); Mean Corp Hgb Conc 35.6 g/dL (32-36); Mean Corpuscular Volume 85.4 fL (81-99); Mean Platelet Vol. 8.6 fl (6.2-12.0); NRBC Flagged by Analyzer 0 % (0-5); Platelet Count 332 K/mm3 (150-450); RBC Distribution Width CV 12.2 % (11.6-14.6); RBC Distribution Width SD 37.9 fl (35.1-43.9); Red Blood Count 3.62 M/mm3 (4.2-5.4); White Blood Count 7.9 K/mm3 (4.4-11.0)
[2025-06-20 07:17] LABS: Anion Gap 12 (5-15); BUN 13 mg/dL (4-19); BUN/Creat Ratio 25.0 RATIO (10-20); Calcium,Total 9.2 mg/dL (7.6-11.0); Carbon Dioxide 24.1 mmol/L (21.0-32.0); Chloride 91 mmol/L (98-108); Estimated Creatinine Clearance 150.33 ml/min (50-250); Glucose 172 mg/dL (70-99); Potassium 4.5 mmol/L (3.3-5.1)
[2025-06-20] MEDS: Vancomycin HCl 1,750 MG in 0.9% Normal Saline (500mL Bag) 500 ML 250 MG IV ×2 (09:00→21:29)
[2025-06-20] MEDS: NIFEdipine 90 MG Tablet PO (09:02)
[2025-06-20] MEDS: metFORMIN (XR) 500 MG Tablet 1000 MG PO ×2 (09:03→17:31)
[2025-06-20] MEDS: buPROPion (XL) 300 MG TABLET.XL PO (09:03)
[2025-06-20 09:14] LABS: CRP 62.50 mg/L (0.0-3.0)
[2025-06-20 10:00] VITALS: BP 154/82; PULSE 80; RESP 16; TEMP 36.4; O2SAT 97
--- NOTE | 2025-06-20 13:32 | CASEMGMT ---
CALDERON RODRIGUEZ Assessment: Face to Face with pt for initial transition planning/care coordination assessment. CALDERON RODRIGUEZ introduced self and role at [facility], pt voices understanding and consents to assessment. Pt is A&O x4 and answers all questions appropriately at this time. Pt sitting up in chair in no distress. Care providers, pharmacy, and demographics verified/updated. Strata: 1 Admitting Dx: Back Pain PCP: Cruz Specialists: Jak Bailey Pharmacy: [facility] Insurance: [employer] Exchange Prescription Benefit: yes LNOK: Son, Jf; DIL, Eladia Living Arrangements: Pt lives alone in a 1 level home with a ramp to enter in. ADLs: Pt states I with ADLs and IADLs. Transportation: Pt drives self and denies concerns with transportation. Pt states son is driving her to appointments and to run errands while she is not able to drive due to surgery. DME: Cane, Rollator, CPAP, glucometer and supplies, shower bench. Pt would like to get a FWW. HHC/SNF: Denies Hx of. Pt states no concerns with going home at time of dc. Pt has a F/U appt with Dr. Benedict scheduled for 06/27/25. RN JENNIFER spoke with therapy, they are recommending OP therapy after Pt sees Dr. Benedict on the . Pt states no further concerns/needs. CM to follow. Advised pt to ask CM if any further question/concerns/needs arise, voices understanding. This RN JENNIFER reported to RN CM on floor. Pt Goal: Home Plan: Home, Dr. Benedict is consulted follow for recommendations. Bonita MANCERA CM
[2025-06-20 14:00] VITALS: O2SAT 97
--- NOTE | 2025-06-20 15:20 | PN_ITS ---
Subjective Subjective Patient seen and examined with her nurse by her bedside. She complained of pain in her right flank. She denied fever, chills, cough, chest pain, palpitations, dizziness, nausea, vomiting or any other symptoms. Review of systems is otherwise negative. Objective Data Objective Data Vital Signs: Vital Signs Temp Pulse Resp BP Pulse Ox O2 Del Method 97.5 F L 80 16 154/82 H 97 Room Air 06/20/25 10:00 06/20/25 10:00 06/20/25 10:00 06/20/25 10:00 06/20/25 14:00 06/20/25 10:00 Oxygen Delivery Method Room Air Weight: 230 lb Body Mass Index (BMI) 37.1 Intake & Output: Intake and Output for Last 24 Hours 06/18/25 06/19/25 06/20/25 23:59 23:59 23:59 Intake Total 1590 / 1840 1285 / 1285 Balance 1590 / 1840 1285 / 1285 Lab / Micro Data 06/20/25 06:22 06/20/25 06:22 Labs: Laboratory Results - last 24 hr 06/19/25 20:38: Lactic Acid 1.2 06/20/25 06:22: WBC 7.9, RBC 3.62 L, Hgb 11.0 L, Hct 30.9 L, MCV 85.4, MCH 30.4, MCHC 35.6, RDW Std Deviation 37.9, RDW Coeff of Randell 12.2, Plt Count 332, MPV 8.6, Immature Gran % (Auto) 0.800, Neut % (Auto) 65.6, Lymph % (Auto) 21.1, [place] % (Auto) 9.9, Eos % (Auto) 2.2, Baso % (Auto) 0.4, Absolute Neuts (auto) 5.2, Absolute Lymphs (auto) 1.66, Nucleated RBC % 0, ESR 33 H, Sodium 127 L, Potassium 4.5, Chloride 91 L, Carbon Dioxide 24.1, Anion Gap 12, BUN 13, C reatinine 0.51 L, Estim Creat Clear Calc 150.33, Est GFR (MDRD) Non-Af 110, B UN/Creatinine Ratio 25.0 H, Glucose 172 H, Calcium 9.2, C-React Prot Ext Range 62.50 H Radiography Diagnostic Testing: Radiology Impression Lumbar Spine MRI 11/10/25 13:23 IMPRESSION: Postoperative changes of dorsal decompressive laminectomies and instrumented fusion from L4-S1, and recent interbody and metallic plate and screw fixation from L2-L4. New asymmetric edema within the right psoas muscle belly with multiple small peripherally enhancing fluid collections compatible with myositis and intramuscular abscess formations. Findings are concerning for postoperative spondylodiscitis at the L2-3 levels. No appreciable abnormal fluid/abscess collection within the spinal canal, although evaluation is somewhat limited due to metallic artifact. Persistent moderate-advanced spinal canal stenosis from L2-L3 with crowding and possible impingement of the cauda equina. This is unchanged from prior exam. Findings communicated via telephone with provider Devon Lee 06/19/2025 at 7 p.m. HOUSING MANAGER. Reading Location: [facility] Physical Exam Const alert, oriented x3 and no apparent distress Constitutional Narrative: Class III obesity General Appearance: cooperative HEENT normocephalic, head/scalp atraumatic, moist oral mucous membranes and oropharynx normal Eyes EOMs intact bilaterally Neck supple and no JVD Lymph Lymphatic: no lymphedema noted Resp normal respiratory effort, normal air movement and clear to auscultation bilaterally Cardio regular rate, regular rhythm, S1 normal heart sound, S2 normal heart sound and no murmurs GI normal to inspection, nondistended, normoactive bowel sounds, soft to palpation and non-distended GI Narrative: obese abdomen, mild right lower quadrant tenderness, no guarding or rebound tenderness. Extremity normal capillary refill, no clubbing, cyanosis or edema and no calf tenderness Skin Skin Narrative: well healed surgical site on the left flank from prior laminectomy Neuro CN's II-XII intact bilaterally, no focal motor deficits, no sensory deficits noted and deep tendon reflexes 2+ bilaterally Motor Exam: general weakness Psych thought process normal, cooperative and affect normal Appearance: appropriate Assessment & Plan Assessment/Plan (1) Back pain: PLAN: Plan #Right probable psoas abscess * She recently had laminectomy on June 12, 2025 and the incision was in the left flank. Says she had been having increased pain since then. She was found to have a UTI so she went to outside hospital ED. She was sent home on antibiotics after CT was done. * However she continued to have pain so she came to the ED. MRI done showed postoperative changes from L4-S1 laminectomy and new asymmetrical edema showing L2-L3 spondylodiscitis and right psoas muscle belly abscess * Currently on IV vancomycin and ceftriaxone. * Spine surgery consulted. PT OT on board. P.o. Tylenol, p.o. oxycodone and IV dilaudid prn as needed for pain. Await spine surgery recs * #Hyponatremia: sodium level was 122 on admission. Now 127. Will hydrate with IVF adn trend sodium. IF it is refractory to hydration, will get further workup with urine osmolality, serum osmolality and urine sodium #Bipolar disorder: On bupropion and aripiprazole, venlafaxine and carbamazepine #Hypertension: On metoprolol #Type 2 diabetes mellitus: On metformin and pioglitazone. Insulin sliding scale. Accuchecks ACHS. #PTSD:stable. DVT prophylaxis: heparin * # Charges/Coding Visit Charges Inpatient E&M: 05472 Subs Hosp L2
[2025-06-20 16:00] VITALS: BP 148/66; PULSE 79; RESP 18; TEMP 36.8; O2SAT 96
--- NOTE | 2025-06-20 16:02 | CHAPLAIN ---
Type of Pastoral Visit _x__ Initial Visit ___ Follow-up Visit ___ On-call Visit ___ General Patient Visit ___ Spiritual Assessment ___ Family Conference ___ Bereavement ___ Rapid Response ___ Code Blue ___ Other (describe below) Pastoral Care Referral From _x__ Patient ___ Family ___ Nurse ___ Physician ___ Upholsterer Assembly Line ___ Motion Picture Projectionist ___ Other (describe below) Sacrament/Intervention __x_ Active listening ___ Anointing ___ Church ___ Bereavement ___ Communion ___ Minnie exploration ___ ___ Life review _x__ Prayer ___ Reconciliation ___ Sacrament of Sick _x__ Supportive presence ___ Wedding ___ Other (describe below) Pastoral Comments patient was just seen last week and has returned due to a complication; pt is welcoming, 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
--- NOTE | 2025-06-20 18:01 | CONS.ORTHO ---
HPI Consult Data Date of Consult: 06/20/25 HPI Narrative HPI Narrative: REINIER EWING, is a 55 F who presents with right-sided flank and hip pain. Patient is well-known to me as she underwent L2-4 anterior fusion 8 days ago. She was discharged on postop day 1. She was doing well until when she started feeling burning micturition related to UTI. She started having chills but denies any fever. She then went to the local hospital [place] where she was treated and discharged. She continued to have chills and she came to [place] ER. She underwent an MRI which showed right psoas abscess like lesions. Patient denies any wound complications. Dressings are off in the left flank. Her main symptom seems to be pain in the right flank and right hip and difficulty with flexing the right hip. She has been able to walk with PT. She has been on empiric IV antibiotics since admission last night. [facility] Medical History (Updated 06/20/25 @ 18:[address] Yair Benedict MD) Migraines Lumbar stenosis with neurogenic claudication Obesity (BMI 30-39.9) Loss of hearing Wears glasses Post-menopausal Marijuana use Thyroid disease Ambulates with cane Walker as ambulation aid High cholesterol Back pain TIA (transient ischemic attack) Syncope Dietary restriction Vapes nicotine containing substance Former smoker CPAP (continuous positive airway pressure) dependence History of pain when walking History of echocardiogram Lumbar stenosis Cervical radiculopathy PTSD (post-traumatic stress disorder) Bipolar 1 disorder Vitamin D deficiency Neuropathy Hypertension Diabetes type 2, controlled Chronic bronchitis Arthritis Home Medications Medication Instructions Recorded Last Taken Type multivitamin 1 tab PO DAILY SUPPLEMENT 09/22/22 06/10/25 History aspirin 81 mg tablet 81 mg PO DAILY HEART HEALTH 11/20/23 06/19/25 History magnesium 250 mg tablet 500 mg PO QHS CRAMPS 11/20/23 06/10/25 History turmeric root extract 500 mg 1,000 mg PO BID SUPPLEMENT 11/20/23 06/10/25 History capsule metformin 500 mg tablet,extended 1,000 mg PO BID DIABETES 12/17/23 06/19/25 History release 24 hr bupropion HCl 300 mg 24 hr tablet, 300 mg PO QAM PTSD 30 days #30 tabs 05/23/25 06/19/25 Rx extended release venlafaxine 150 mg 150 mg PO DAILY BIPOLAR 30 days 05/23/25 06/18/25 Rx capsule,extended release 24 hr #30 caps aripiprazole 15 mg tablet 15 mg PO QHS BIPOLAR 05/26/25 06/18/25 History omega 2-bia-pwj-fish oil 1,200 mg 2 cap PO DAILY SUPPLEMENT 05/26/25 06/10/25 History (144 mg-216 mg) capsule (Fish Oil) pioglitazone 30 mg tablet 30 mg PO QHS DIABETES 05/26/25 06/18/25 History vitamin D3 125 mcg (5,000 1 cap PO DAILY SUPPLEMENT 05/26/25 06/10/25 History unit)-vitamin K2 100 mcg capsule acetaminophen 500 mg tablet 1,000 mg (2 x 500 mg) PO Q6H #30 06/13/25 06/19/25 Rx tabs meloxicam 15 mg tablet 15 mg PO DAILY #30 tabs 06/13/25 06/18/25 Rx methocarbamol 500 mg tablet 750 mg (1.5 x 500 mg) PO TID PRN 06/13/25 06/19/25 Rx Pain/spasms #30 tabs oxycodone 5 mg tablet 2.5 - 5 mg (0.5 - 1 x 5 mg) PO Q6H 06/13/25 06/19/25 Rx PRN pain 7 days #28 tabs carbamazepine 200 mg tablet 400 mg PO BID BIPOLAR 06/19/25 06/19/25 History carvedilol 12.5 mg tablet 12.5 mg PO BID 06/19/25 06/19/25 History cephalexin 500 mg capsule 500 mg PO 4X/DAY 06/19/25 06/19/25 History ketorolac 10 mg tablet 10 mg PO Q6H PRN PRN pain 06/19/25 06/19/25 History melatonin 5 mg capsule 5 mg PO QHS PRN 06/19/25 06/18/25 History nifedipine 90 mg tablet,extended 90 mg PO DAILY 06/19/25 06/19/25 History release valsartan 160 mg tablet 160 mg PO DAILY 06/19/25 06/19/25 History Allergy/AdvReac Type Severity Reaction Status Date / Time azithromycin Allergy Mild Hives Verified 06/19/25 11:51 Sulfa (Sulfonamide Allergy Mild Other Verified 06/19/25 11:51 Antibiotics) Family History Other Alcoholism Anxiety Arthritis defect Breast cancer CVA (cerebral vascular accident) Cancer Depression Diabetes Hypertension Mental disorder Myocardial infarction Suicide attempt Surgical History (Updated 06/16/25 @ 00:01 by Background William) Hx of colonoscopy Hx of dilation and curettage Hx of decompressive lumbar laminectomy History of lumbar fusion Social History Smoking Status: Former smoker Smokeless tobacco user: other alcohol intake: current alcohol intake frequency: other details: Marc 3-4 a year substance use type: does not use Vital Signs Vital Signs Vital Signs: 06/19/25 18:24 06/19/25 20:00 06/19/25 20:41 Temperature 98.4 F Temperature Source Pulse Rate 68 73 80 Respiratory Rate 16 16 16 Respiratory Effort Respiratory Depth Respiratory Pattern Blood Pressure 120/62 143/93 H 128/56 H Blood Pressure Mean 81 109 80 Blood Pressure Source Blood Pressure Position Blood Pressure Location Pulse Ox 100 99 95 Oxygen Delivery Method Room Air 06/19/25 20:42 06/19/25 21:42 06/19/25 22:00 Temperature 98.4 F 98.4 F 98.4 F Temperature Source Oral Oral Oral Pulse Rate 80 83 85 Respiratory Rate 16 16 16 Respiratory Effort Respiratory Depth Respiratory Pattern Blood Pressure 128/56 H 139/52 H 165/82 H Blood Pressure Mean 80 81 109 Blood Pressure Source Blood Pressure Position Blood Pressure Location Pulse Ox 96 97 99 Oxygen Delivery Method Room Air Room Air Room Air 06/19/25 22:50 06/19/25 22:54 06/20/25 04:02 Temperature 97.8 F 97.3 F L Temperature Source Oral Oral Pulse Rate 73 80 Respiratory Rate 16 16 Respiratory Effort Normal Non-Labored Respiratory Depth Normal Respiratory Pattern Normal Blood Pressure 149/55 H 154/87 H Blood Pressure Mean 86 109 Blood Pressure Source Monitor Blood Pressure Position Left Lateral Blood Pressure Location Left Arm Pulse Ox 96 94 Oxygen Delivery Method Room Air Room Air 06/20/25 07:53 06/20/25 10:00 06/20/25 10:00 Temperature 97.5 F L Temperature Source Temporal Pulse Rate 80 Respiratory Rate 16 Respiratory Effort Normal Non-Labored Respiratory Depth Normal Respiratory Pattern Normal Blood Pressure 154/82 H Blood Pressure Mean 106 Blood Pressure Source Blood Pressure Position Blood Pressure Location Pulse Ox 97 Oxygen Delivery Method Room Air Room Air Room Air 06/20/25 14:00 06/20/25 16:00 Temperature 98.2 F Temperature Source Temporal Pulse Rate 79 Respiratory Rate 18 Respiratory Effort Respiratory Depth Respiratory Pattern Blood Pressure 148/66 H Blood Pressure Mean 93 Blood Pressure Source Blood Pressure Position Blood Pressure Location Pulse Ox 97 96 Oxygen Delivery Method Room Air Weight Weight: 230 lb Body Mass Index (BMI) 37.1 Physical Exam Narrative Examination of the left flank surgical incision is well-healed and uncovered. No tenderness of collection or any the skin. Neurologic motion lower extremity shows 5 x 5 power except for right hip flexion which is painful and grade 4. Lab / Micro Data 06/20/25 06:22 06/20/25 06:22 Labs: Laboratory Results - last 24 hr 06/19/25 20:38: Lactic Acid 1.2 06/20/25 06:22: WBC 7.9, RBC 3.62 L, Hgb 11.0 L, Hct 30.9 L, MCV 85.4, MCH 30.4, MCHC 35.6, RDW Std Deviation 37.9, RDW Coeff of Randell 12.2, Plt Count 332, MPV 8.6, Immature Gran % (Auto) 0.800, Neut % (Auto) 65.6, Lymph % (Auto) 21.1, [place] % (Auto) 9.9, Eos % (Auto) 2.2, Baso % (Auto) 0.4, Absolute Neuts (auto) 5.2, Absolute Lymphs (auto) 1.66, Nucleated RBC % 0, ESR 33 H, Sodium 127 L, Potassium 4.5, Chloride 91 L, Carbon Dioxide 24.1, Anion Gap 12, BUN 13, Creatinine 0.51 L, Estim Creat Clear Calc 150.33, Est GFR (MDRD) Non-Af 110, BUN/Creatinine Ratio 25.0 H, Glucose 172 H, Calcium 9.2, C-React Prot Ext Range 62.50 H Imaging Radiology Impression Lumbar Spine MRI 06/19/25 13:23 IMPRESSION: Postoperative changes of dorsal decompressive laminectomies and instrumented fusion from L4-S1, and recent interbody and metallic plate and screw fixation from L2-L4. New asymmetric edema within the right psoas muscle belly with multiple small peripherally enhancing fluid collections compatible with myositis and intramuscular abscess formations. Findings are concerning for postoperative spondylodiscitis at the L2-3 levels. No appreciable abnormal fluid/abscess collection within the spinal canal, although evaluation is somewhat limited due to metallic artifact. Persistent moderate-advanced spinal canal stenosis from L2-L3 with crowding and possible impingement of the cauda equina. This is unchanged from prior exam. Findings communicated via telephone with provider Devon Lee 06/19/2025 at 7 p.m. 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 Reading Location: [id number] Assessment & Plan Assessment/Plan (1) Psoas abscess, right: (2) Status post lumbar spinal fusion: PLAN: Plan I reviewed MRI with and without contrast of lumbar spine done yesterday in the ER. This shows abscess like elections in the right psoas belly. Patient had a left-sided anterior to psoas approach with L2-4 anterior instrumentation. While MRI report suggest spondylodiscitis, these may likely be postsurgical changes in the spine. The abscesses in the right psoas belly seem to not be continuous with the L2-4 surgical area. However considering that this is still quite close to the surgical area, and because hardware is present, patient will need ID consult for likely prolonged IV antibiotics through PICC line. I will defer requirement of IR drainage of right psoas abscess to ID physician. Recommend continued PT OT. Follow-up as scheduled next week. Will continue to follow while in house. Charges/Coding Visit Charges Inpatient E&M: 87368 Init Hosp L3
[2025-06-20 19:37] VITALS: BP 162/94; PULSE 77; RESP 20; TEMP 37; O2SAT 97
[2025-06-20 22:50] VITALS: BP 158/85; PULSE 74; RESP 16; TEMP 36.4; O2SAT 97
[2025-06-20] MEDS: Pioglitazone Hydrochloride 30 MG Tablet PO (22:55)
[2025-06-20] MEDS: Magnesium Chloride 64 MG Delay Rel.Tablet 128 MG PO (22:55)
[2025-06-20] MEDS: MELATONIN 10 MG TABLET 5 MG PO (23:01)
[2025-06-21 04:15] VITALS: BP 134/66; PULSE 74; RESP 18; TEMP 36.4; O2SAT 97
[2025-06-21] MEDS: 0.9% Saline Lock 10 ML Syringe IV ×2 (04:24→18:02)
[2025-06-21 07:56] VITALS: O2SAT 98
[2025-06-21] MEDS: Vancomycin Trough/Random Due 1 LAB MC (08:26)
[2025-06-21 08:27] LABS: Hematocrit 30.8 % (37-47); Hemoglobin 11.1 g/dL (12.0-15.0); Immature Granulocytes Count 0.050 X10^3/uL (0.0-0.0); Mean Corp Hgb Conc 36.0 g/dL (32-36); Mean Corpuscular Volume 85.8 fL (81-99); Mean Platelet Vol. 8.4 fl (6.2-12.0); NRBC Flagged by Analyzer 0 % (0-5); Platelet Count 323 K/mm3 (150-450); RBC Distribution Width CV 12.2 % (11.6-14.6); RBC Distribution Width SD 37.9 fl (35.1-43.9); Red Blood Count 3.59 M/mm3 (4.2-5.4); White Blood Count 6.3 K/mm3 (4.4-11.0)
[2025-06-21] MEDS: metFORMIN (XR) 500 MG Tablet 1000 MG PO ×2 (08:30→17:57)
[2025-06-21 08:55] LABS: Anion Gap 11 (5-15); BUN 10 mg/dL (4-19); BUN/Creat Ratio 20.5 RATIO (10-20); Calcium,Total 9.2 mg/dL (7.6-11.0); Carbon Dioxide 25.1 mmol/L (21.0-32.0); Chloride 93 mmol/L (98-108); Estimated Creatinine Clearance 159.72 ml/min (50-250); Glucose 159 mg/dL (70-99); Potassium 4.5 mmol/L (3.3-5.1)
[2025-06-21 09:26] LABS: Vancomycin, Trough Level 11.0 ug/mL (5.0-15.0)
--- NOTE | 2025-06-21 09:34 | PCM.RX.CS ---
Consult Antibiotic Management Pharmacy has been consulted to manage selected antibiotic: Vancomycin Type of Intervention Type of Consult: Follow-up Suspected Infection Suspected Infection: Skin/Soft tissue Labs Labs: Sodium 129 mmol/L (133-145) L 06/21/25 08:14 Potassium 4.5 mmol/L (3.3-5.1) 06/21/25 08:14 Chloride 93 mmol/L (98-108) L 06/21/25 08:14 Carbon Dioxide 25.1 mmol/L (21.0-32.0) 06/21/25 08:14 Anion Gap 11 (5-15) 06/21/25 08:14 BUN 10 mg/dL (4-19) 06/21/25 08:14 Creatinine 0.48 mg/dL (0.70-1.20) L 06/21/25 08:14 Est GFR (MDRD) Non-Af 111 (>60) 06/21/25 08:14 BUN/Creatinine Ratio 20.5 RATIO (10-20) H 06/21/25 08:14 Glucose 159 mg/dL (70-99) H 06/21/25 08:14 Vancomycin Trough 11.0 ug/mL (5.0-15.0) 06/21/25 08:14 Goal Trough Goal Trough: 10-15 mcg/mL Pharmacy Plan for Drug Dosing Pharmacy Plan for Drug Dosing: VANCOMYCIN LEVEL RECEIVED Current Vancomycin Dose: 1750mg Q12H Number of Doses Received: 1750mg x2, 2000mg x1 Vancomycin Level: 11.0 (goal 10-15) Hours Since Last Dose: 10.75 Renal Function: sCr 0.48 Renal Function Trend: stable Vancomycin Plan/Comments: Continue Vancomycin 1750mg Q12H Pending Level: 06/22/25 @ 20:30 Pharmacy Service will continue to monitor and adjust dosing as required. Follow-Up Labs Follow-Up Labs: Trough: Vancomycin (06/22/25 @ 20:30)
[2025-06-21] MEDS: Vancomycin HCl 1,750 MG in 0.9% Normal Saline (500mL Bag) 500 ML 250 MG IV ×2 (09:52→20:28)
--- NOTE | 2025-06-21 10:32 | CASEMGMT ---
RN CM into pt room, pt is in need of FWW. Provided pt with a verbal list of options of DME providers, pt chose [employer]. Pt denies further needs at this time.
[2025-06-21] MEDS: NIFEdipine 90 MG Tablet PO (10:57)
[2025-06-21] MEDS: buPROPion (XL) 300 MG TABLET.XL PO (10:59)
--- NOTE | 2025-06-21 12:37 | PN_ITS ---
Subjective Subjective Patient seen and examined with her nurse by her bedside. Her son was also by her bedside. She still complains of pain in her right flank. She denies any fever, any chills, any palpitations, any dizziness, any nausea or vomiting or any other symptoms. Review of systems otherwise negative. She has remained hemodynamically stable. Objective Data Objective Data Vital Signs: Vital Signs Temp Pulse Resp BP Pulse Ox O2 Del Method 97.5 F L 74 18 134/66 H 98 Room Air 06/21/25 04:15 06/21/25 04:15 06/21/25 04:15 06/21/25 04:15 06/21/25 07:56 06/21/25 07:56 Oxygen Delivery Method Room Air Weight: 230 lb Body Mass Index (BMI) 37.1 Intake & Output: Intake and Output for Last 24 Hours 06/19/25 06/20/25 06/21/25 23:59 23:59 23:59 Intake Total 1590 / 1840 2270 / 2270 50 / 50 Output Total 100 / 100 Balance 1590 / 1840 2170 / 2170 50 / 50 Lab / Micro Data 06/21/25 08:14 06/21/25 08:14 Labs: Laboratory Results - last 24 hr 06/21/25 08:14: WBC 6.3, RBC 3.59 L, Hgb 11.1 L, Hct 30.8 L, MCV 85.8, MCH 30.9, MCHC 36.0, RDW Std Deviation 37.9, RDW Coeff of Randell 12.2, Plt Count 323, MPV 8.4, Immature Gran % (Auto) 0.800, Neut % (Auto) 55.3, Lymph % (Auto) 30.2, [place] % (Auto) 10.1 H, Eos % (Auto) 3.0, Baso % (Auto) 0.6, Absolute Neuts (auto) 3.5, Absolute Lymphs (auto) 1.91, Nucleated RBC % 0, Sodium 129 L, Potassium 4.5, C hloride 93 L, Carbon Dioxide 25.1, Anion Gap 11, BUN 10, Creatinine 0.48 L, Estim Creat Clear Calc 159.72, Est GFR (MDRD) Non-Af 111, BUN/Creatinine Ratio 20.5 H, Glucose 159 H, Calcium 9.2, Vancomycin Trough 11.0 Physical Exam Const alert, oriented x3 and no apparent distress Constitutional Narrative: Class III obesity General Appearance: cooperative and well developed HEENT normocephalic, head/scalp atraumatic, moist oral mucous membranes and oropharynx normal Eyes PERRL and EOMs intact bilaterally Neck no lymphadenopathy, supple and no JVD Lymph Lymphatic: no lymphadenopathy noted and no lymphedema noted Resp normal respiratory effort, normal air movement and clear to auscultation bilaterally Cardio regular rate, regular rhythm, S1 normal heart sound, S2 normal heart sound and no murmurs GI normal to inspection, nondistended, normoactive bowel sounds and soft to palpation GI Narrative: obese abdomen, mild right lower quadrant tenderness, no guarding or rebound tenderness. Extremity normal capillary refill, no clubbing, cyanosis or edema and no calf tenderness Skin Skin Narrative: well healed surgical site on the left flank from prior laminectomy Neuro CN's II-XII intact bilaterally, no focal motor deficits, no sensory deficits noted and deep tendon reflexes 2+ bilaterally Speech: speech normal Motor Exam: general weakness Psych thought process normal, cooperative and affect normal Appearance: appropriate Assessment & Plan Assessment/Plan (1) Back pain: PLAN: Plan #Right probable psoas abscess * She recently had laminectomy on June 12, 2025 and the incision was in the left flank. Says she had been having increased pain since then. She was found to have a UTI so she went to outside hospital ED. She was sent home on antibiotics after CT was done. * However she continued to have pain so she came to the ED. MRI done showed postoperative changes from L4-S1 laminectomy and new asymmetrical edema showing L2-L3 spondylodiscitis and right psoas muscle belly abscess * Currently on IV vancomycin and ceftriaxone. * PT OT on board. P.o. Tylenol, p.o. oxycodone and IV dilaudid prn as needed for pain. * Past [facility] recommendations to consult ID to see if patient will need drainage of the abscess or just long-term IV antibiotics. * #Hyponatremia: sodium level was 122 on admission. Now 129. continue to monitor closely #Bipolar disorder: On bupropion and aripiprazole, venlafaxine and carbamazepine #Hypertension: On metoprolol #Type 2 diabetes mellitus: On metformin and pioglitazone. Insulin sliding scale. Accuchecks ACHS. #PTSD:stable. DVT prophylaxis: heparin * # Charges/Coding Visit Charges Inpatient E&M: 15325 Subs Hosp L2
--- NOTE | 2025-06-21 13:57 | PCM.CONS.GEN ---
Assessment & Plan Assessment/Plan (1) Psoas abscess, right: PLAN: Presenting with back pain s/p 06/12/25 L2-4 oblique interbody fusion with anterior instrumentation by Dr. Benedict. L sided incision healing well. No fever, normal wbc. Had been on started on keflex recently by [place] ED. On empiric vanc/ceftriaxone. If condition worsens, would change ceftriaxone to cefepime for more nosocomial coverage. CT with suspected two psoas abscesses seen. Recommend IR aspiration and culture if possible. Cont abx for now. Will follow, thank you, d/w Dr. Morgan (2) Back pain: (3) Status post lumbar spinal fusion: HPI Consult Data Date of Consult: 06/21/25 HPI Narrative Reason for Consultation: abscess HPI Narrative: REINIER EWING, is a 55 F who presents with back pain s/p 06/12/25 L2-4 oblique interbody fusion with anterior instrumentation. Had several days progressive R flank pain. Went to [facility] ED, dx with uti, denies any dysuria. Some difficulty urinating. Sent home with a po keflex course. Came to ED here, CT done, admitted on vanc/ceftriaxone, seen by Dr. Benedict. Pain slightly better today. Some chills. Full ROS performed and neg except as noted above. [facility] Medical History Migraines Lumbar stenosis with neurogenic claudication Obesity (BMI 30-39.9) Loss of hearing Wears glasses Post-menopausal Marijuana use Thyroid disease Ambulates with cane Walker as ambulation aid High cholesterol Back pain TIA (transient ischemic attack) Syncope Dietary restriction Vapes nicotine containing substance Former smoker CPAP (continuous positive airway pressure) dependence History of pain when walking History of echocardiogram Lumbar stenosis Cervical radiculopathy PTSD (post-traumatic stress disorder) Bipolar 1 disorder Vitamin D deficiency Neuropathy Hypertension Diabetes type 2, controlled Chronic bronchitis Arthritis Home Medications Medication Instructions Recorded Last Taken Type multivitamin 1 tab PO DAILY SUPPLEMENT 09/22/22 06/10/25 History aspirin 81 mg tablet 81 mg PO DAILY HEART HEALTH 11/20/23 06/19/25 History magnesium 250 mg tablet 500 mg PO QHS CRAMPS 11/20/23 06/10/25 History turmeric root extract 500 mg 1,000 mg PO BID SUPPLEMENT 11/20/23 06/10/25 History capsule metformin 500 mg tablet,extended 1,000 mg PO BID DIABETES 12/17/23 06/19/25 History release 24 hr bupropion HCl 300 mg 24 hr tablet, 300 mg PO QAM PTSD 30 days #30 tabs 05/23/25 06/19/25 Rx extended release venlafaxine 150 mg 150 mg PO DAILY BIPOLAR 30 days 05/23/25 06/18/25 Rx capsule,extended release 24 hr #30 caps aripiprazole 15 mg tablet 15 mg PO QHS BIPOLAR 05/26/25 06/18/25 History omega 1-doz-ksy-fish oil 1,200 mg 2 cap PO DAILY SUPPLEMENT 05/26/25 06/10/25 History (144 mg-216 mg) capsule (Fish Oil) pioglitazone 30 mg tablet 30 mg PO QHS DIABETES 05/26/25 06/18/25 History vitamin D3 125 mcg (5,000 1 cap PO DAILY SUPPLEMENT 05/26/25 06/10/25 History unit)-vitamin K2 100 mcg capsule acetaminophen 500 mg tablet 1,000 mg (2 x 500 mg) PO Q6H #30 06/13/25 06/19/25 Rx tabs meloxicam 15 mg tablet 15 mg PO DAILY #30 tabs 06/13/25 06/18/25 Rx methocarbamol 500 mg tablet 750 mg (1.5 x 500 mg) PO TID PRN 06/13/25 06/19/25 Rx Pain/spasms #30 tabs oxycodone 5 mg tablet 2.5 - 5 mg (0.5 - 1 x 5 mg) PO Q6H 06/13/25 06/19/25 Rx PRN pain 7 days #28 tabs carbamazepine 200 mg tablet 400 mg PO BID BIPOLAR 06/19/25 06/19/25 History carvedilol 12.5 mg tablet 12.5 mg PO BID 06/19/25 06/19/25 History cephalexin 500 mg capsule 500 mg PO 4X/DAY 06/19/25 06/19/25 History ketorolac 10 mg tablet 10 mg PO Q6H PRN PRN pain 06/19/25 06/19/25 History melatonin 5 mg capsule 5 mg PO QHS PRN 06/19/25 06/18/25 History nifedipine 90 mg tablet,extended 90 mg PO DAILY 06/19/25 06/19/25 History release valsartan 160 mg tablet 160 mg PO DAILY 06/19/25 06/19/25 History Allergy/AdvReac Type Severity Reaction Status Date / Time azithromycin Allergy Mild Hives Verified 06/19/25 11:51 Sulfa (Sulfonamide Allergy Mild Other Verified 06/19/25 11:51 Antibiotics) Family History Other Alcoholism Anxiety Arthritis defect Breast cancer CVA (cerebral vascular accident) Cancer Depression Diabetes Hypertension Mental disorder Myocardial infarction Suicide attempt Surgical History (Updated 06/16/25 @ 00:01 by Background William) Hx of colonoscopy Hx of dilation and curettage Hx of decompressive lumbar laminectomy History of lumbar fusion Social History Smoking Status: Former smoker Smokeless tobacco user: other alcohol intake: current alcohol intake frequency: other details: [place] 3-4 a year substance use type: does not use Physical Exam Const alert, oriented x3 and no apparent distress General Appearance: cooperative HEENT normocephalic and head/scalp atraumatic Eyes PERRL and EOMs intact bilaterally Neck supple and No nodes Resp normal air movement and clear to auscultation bilaterally Cardio regular rate and regular rhythm GI soft to palpation, non-tender and non-distended Extremity General Extremity: Negative for edema Skin Skin Narrative: L sided incision healing well. Neuro CN's II-XII intact bilaterally Lab / Micro Data Attestation: I reviewed the patient's lab results. 06/21/25 08:14 06/21/25 08:14 Labs: Laboratory Results - last 24 hr 06/21/25 08:14: WBC 6.3, RBC 3.59 L, Hgb 11.1 L, Hct 30.8 L, MCV 85.8, MCH 30.9, MCHC 36.0, RDW Std Deviation 37.9, RDW Coeff of Randell 12.2, Plt Count 323, MPV 8.4, Immature Gran % (Auto) 0.800, Neut % (Auto) 55.3, Lymph % (Auto) 30.2, [place] % (Auto) 10.1 H, Eos % (Auto) 3.0, Baso % (Auto) 0.6, Absolute Neuts (auto) 3.5, Absolute Lymphs (auto) 1.91, Nucleated RBC % 0, Sodium 129 L, Potassium 4.5, Chloride 93 L, Carbon Dioxide 25.1, Anion Gap 11, BUN 10, Creatinine 0.48 L, Estim Creat Clear Calc 159.72, Est GFR (MDRD) Non-Af 111, BUN/Creatinine Ratio 20.5 H, Glucose 159 H, Calcium 9.2, Vancomycin Trough 11.0
[2025-06-21 14:38] VITALS: BP 169/88; PULSE 71; RESP 16; TEMP 36.5; O2SAT 96
--- NOTE | 2025-06-21 16:11 | PN.ORTHO_ITS ---
Subjective Subjective REINIER EWING, is a 55 F who presents with right-sided flank and hip pain. Patient was seen at the bedside today she was laying on her left side which is the only comfortable position for her. Patient is well-known to me as she underwent L2-4 anterior fusion on 06/12/2025. She was discharged on postop day 1 after reaching all milestones. She was doing well until when she started feeling burning micturition related to UTI. She started having chills but denies any fever. She then went to the local [facility] where she was treated and discharged. She continued to have chills and she came to [place] [facility]. She underwent an MRI which showed right psoas abscess like lesions. Patient denies any wound complications. Dressings are off in the left flank. Her main symptom seems to be pain in the right flank and right hip and difficulty with flexing the right hip. She has been able to walk with PT. admitted on vanc/ceftriaxone. The patient was seen by Dr. Bowens who recommends :if condition worsens, would change ceftriaxone to cefepime for more nosocomial coverage. CT with suspected two psoas abscesses seen. Recommend IR aspiration and culture if possible. Cont abx for now. Seen with Dr. Benedict today. Objective Data Objective Data Vital Signs: Vital Signs Temp Pulse Resp BP Pulse Ox O2 Del Method 97.7 F L 71 16 169/88 H 96 Room Air 06/21/25 14:38 06/21/25 14:38 06/21/25 14:38 06/21/25 14:38 06/21/25 14:38 06/21/25 14:38 Oxygen Delivery Method Room Air Weight: 230 lb Body Mass Index (BMI) 37.1 Intake & Output: Intake and Output for Last 24 Hours 06/19/25 06/20/25 06/21/25 23:59 23:59 23:59 Intake Total 1590 / 1840 2270 / 2270 585 / 585 Output Total 100 / 100 Balance 1590 / 1840 2170 / 2170 585 / 585 Lab / Micro Data 06/21/25 08:14 06/21/25 08:14 Labs: Laboratory Results - last 24 hr 06/21/25 08:14: WBC 6.3, RBC 3.59 L, Hgb 11.1 L, Hct 30.8 L, MCV 85.8, MCH 30.9, MCHC 36.0, RDW Std Deviation 37.9, RDW Coeff of Randell 12.2, Plt Count 323, MPV 8.4, Immature Gran % (Auto) 0.800, Neut % (Auto) 55.3, Lymph % (Auto) 30.2, [place] % (Auto) 10.1 H, Eos % (Auto) 3.0, Baso % (Auto) 0.6, Absolute Neuts (auto) 3.5, Absolute Lymphs (auto) 1.91, Nucleated RBC % 0, Sodium 129 L, Potassium 4.5, C hloride 93 L, Carbon Dioxide 25.1, Anion Gap 11, BUN 10, Creatinine 0.48 L, Estim Creat Clear Calc 159.72, Est GFR (MDRD) Non-Af 111, BUN/Creatinine Ratio 20.5 H, Glucose 159 H, Calcium 9.2, Vancomycin Trough 11.0 Physical Exam Narrative Examination of the left flank surgical incision is well-healed and uncovered. No tenderness of collection or any the skin. Neurologic motion lower extremity shows 5 x 5 power except for right hip flexion which is painful and grade 4. Assessment & Plan Assessment/Plan (1) Psoas abscess, right: PLAN: Plan ID consult recommends if condition worsens, would change ceftriaxone to cefepime for more nosocomial coverage. CT with suspected two psoas abscesses seen. Recommend IR aspiration and culture if possible. Cont abx for now. Continue PT/OT. Appreciate hospitalist and ID following. Pending however patient's condition continues could potentially send to rehab versus home. Patient appears to wish for a home discharge with home health. Discussed the possibility of the PICC line with the patient, patient understands. Will continue to follow.
[2025-06-21 20:18] VITALS: BP 156/72; PULSE 79; RESP 18; TEMP 36.6; O2SAT 99
[2025-06-21] MEDS: Magnesium Chloride 64 MG Delay Rel.Tablet 128 MG PO (21:15)
[2025-06-21] MEDS: Pioglitazone Hydrochloride 30 MG Tablet PO (21:15)
[2025-06-22 00:25] VITALS: BP 171/89; PULSE 80; RESP 18; TEMP 36.4; O2SAT 99
[2025-06-22 06:00] LABS: Hematocrit 31.8 % (37-47); Hemoglobin 10.9 g/dL (12.0-15.0); Immature Granulocytes Count 0.060 X10^3/uL (0.0-0.0); Mean Corp Hgb Conc 34.3 g/dL (32-36); Mean Corpuscular Volume 87.6 fL (81-99); Mean Platelet Vol. 8.4 fl (6.2-12.0); NRBC Flagged by Analyzer 0 % (0-5); Platelet Count 348 K/mm3 (150-450); RBC Distribution Width CV 11.9 % (11.6-14.6); RBC Distribution Width SD 38.5 fl (35.1-43.9); Red Blood Count 3.63 M/mm3 (4.2-5.4); White Blood Count 7.0 K/mm3 (4.4-11.0)
[2025-06-22 06:29] LABS: Anion Gap 10 (5-15); BUN 9 mg/dL (4-19); BUN/Creat Ratio 18.8 RATIO (10-20); Calcium,Total 9.2 mg/dL (7.6-11.0); Carbon Dioxide 23.5 mmol/L (21.0-32.0); Chloride 93 mmol/L (98-108); Estimated Creatinine Clearance 166.67 ml/min (50-250); Glucose 173 mg/dL (70-99); Potassium 4.4 mmol/L (3.3-5.1)
[2025-06-22 06:49] VITALS: BP 122/55; PULSE 80; RESP 18; TEMP 36.4; O2SAT 98
[2025-06-22] MEDS: metFORMIN (XR) 500 MG Tablet 1000 MG PO ×2 (08:06→16:17)
--- NOTE | 2025-06-22 09:37 | PN.HOSP_ITS ---
Subjective Subjective Continues to have thigh pain especially when she moves Objective Data Objective Data Vital Signs: Vital Signs Temp Pulse Resp BP Pulse Ox O2 Del Method 97.6 F L 80 18 122/55 H 98 Room Air 06/22/25 06:49 06/22/25 06:49 06/22/25 06:49 06/22/25 06:49 06/22/25 06:49 06/22/25 08:35 Oxygen Delivery Method Room Air Weight: 230 lb Body Mass Index (BMI) 37.1 Intake & Output: Intake and Output for Last 24 Hours 06/21/25 06/22/25 06/23/25 03:59 03:59 03:59 Intake Total 2019 1470 / 1470 300 / 300 Output Total 100 / 100 Balance 1920 / 1920 1470 / 1470 300 / 300 Lab / Micro Data 06/22/25 05:51 06/22/25 05:51 Labs: Laboratory Results - last 24 hr 06/22/25 05:51: WBC 7.0, RBC 3.63 L, Hgb 10.9 L, Hct 31.8 L, MCV 87.6, MCH 30.0, MCHC 34.3, RDW Std Deviation 38.5, RDW Coeff of Randell 11.9, Plt Count 348, MPV 8.4, Immature Gran % (Auto) 0.900, Neut % (Auto) 58.5, Lymph % (Auto) 27.1, [place] % (Auto) 9.6, Eos % (Auto) 3.0, Baso % (Auto) 0.9, Absolute Neuts (auto) 4.1, Absolute Lymphs (auto) 1.89, Nucleated RBC % 0, Sodium 127 L, Potassium 4.4, C hloride 93 L, Carbon Dioxide 23.5, Anion Gap 10, BUN 9, Creatinine 0.46 L, Estim Creat Clear Calc 166.67, Est GFR (MDRD) Non-Af 112, BUN/Creatinine Ratio 18.8, G lucose 173 H, Calcium 9.2 Micro: Microbiology 06/19/25 20:43 Blood Culture (Wb) - Anticubital Left Blood Culture - Preliminary No growth in 48 hours. 06/19/25 20:38 Blood Culture (Wb) - Right Forearm Blood Culture - Preliminary No growth in 48 hours. Physical Exam Narrative General: Alert, Oriented x3, Cooperative, No apparent distress HEENT: Atraumatic, PERRLA, EOMI, Normocephalic Oral: Moist Mucosa Neck: Supple, No JVD Lungs: Diminished, Normal air movement, No rhonchi, No wheeze, No rales Cardiovascular: Regular rate, Regular Rhythm, Normal S1, Normal S2, No murmurs Abdomen: Soft, Non Tender, Non-Distended, No Hepato-splenomegaly Extremities: No edema, Capillary Refill Less than 3 Seconds Skin: No rashes, No breakdown Musculoskeletal: Mild tenderness to palpation of her right thigh/hip joint Neurological: No focal neurological deficits, moves all extremities Psych/Mental Status: Normal Affect, Appropriate Assessment & Plan Assessment/Plan (1) Back pain: PLAN: Plan 1. Right probable psoas abscess * She recently had laminectomy on June 12, 2025 and the incision was in the left flank. Says she had been having increased pain since then. She was found to have a UTI so she went to outside hospital ED. She was sent home on antibiotics after CT was done. * However she continued to have pain so she came to the ED. MRI done showed postoperative changes from L4-S1 laminectomy and new asymmetrical edema showing L2-L3 spondylodiscitis and right psoas muscle belly abscess * Currently on IV vancomycin and ceftriaxone. * PT OT on board. P.o. Tylenol, p.o. oxycodone and IV dilaudid prn as needed for pain. * Past [facility] recommendations to consult ID to see if patient will need drainage of the abscess or just long-term IV antibiotics. 06/22/2025: Continues to have multiple small right psoas muscle abscesses that are not amenable to drainage. Will discuss with infectious disease about placing a PICC line and long-term IV antibiotics. Will add oxycodone to her medication regimen while here as she cannot go home on IV pain medications. #Hyponatremia: sodium level was 122 on admission. Now 129. continue to monitor closely – Sodium level is improving to 127 today #Bipolar disorder: On bupropion and aripiprazole, venlafaxine and carbamazepine #Hypertension: On metoprolol #Type 2 diabetes mellitus: On metformin and pioglitazone. Insulin sliding scale. Accuchecks ACHS. #PTSD:stable. DVT: Heparin Charges/Coding Visit Charges Inpatient E&M: 61639 Subs Hosp L2
[2025-06-22] MEDS: Vancomycin HCl 1,750 MG in 0.9% Normal Saline (500mL Bag) 500 ML 250 MG IV ×2 (09:42→22:06)
--- NOTE | 2025-06-22 09:47 | PN.ID_ITS ---
Physical Exam Narrative Pain slightly better, no fever, no n/v/d. Const alert and no apparent distress General Appearance: cooperative Resp normal air movement and clear to auscultation bilaterally Cardio regular rate and regular rhythm GI soft to palpation, non-tender and non-distended Skin no rashes or lesions noted ID ID: Route of nutrition/ use of supplements: [] Nutritional Intake: [] IV Site: [] Servin Catheter: [] Assessment & Plan Assessment/Plan (1) Psoas abscess, right: PLAN: Presenting with back pain s/p 06/12/25 L2-4 oblique interbody fusion with anterior instrumentation by Dr. Benedict. L sided incision healing well. No fever, normal wbc. Had been on started on keflex recently by [place] [facility]. On empiric vanc/ceftriaxone. CT with suspected two psoas abscesses seen. Not a candidate for aspiration per IR. Will change to vanc/cefepime since no culture data available, will order picc and 6 weeks iv abx with stop date 08/02/25 with weekly labs. Plan on repeat imaging as outpt and may be able to shorten duration. ID followup in 2 weeks. Recommend ECF placement and she is agreeable. Will follow, d/w human services case manager (2) Back pain: (3) Status post lumbar spinal fusion:
[2025-06-22 10:00] VITALS: BP 159/93; PULSE 71; RESP 16; TEMP 36.6; O2SAT 97
--- NOTE | 2025-06-22 10:04 | CASEMGMT ---
Spoke with ID who states pt will need 2 IV atb and is agreeable to SNF. Requested dc research assistant create SNF list and deliver to pt.
[2025-06-22] MEDS: buPROPion (XL) 300 MG TABLET.XL PO (10:10)
[2025-06-22] MEDS: NIFEdipine 90 MG Tablet PO (10:11)
--- NOTE | 2025-06-22 10:16 | CASEMGMT ---
Addendum entered by Lynn Casey 06/22/25 10:37: List was delivered to pt. Lynn Casey DC Planning Asst. Original Note: Discharge Planning A list of SNF providers including quality and resource use data and consistent with the patient's preferred geographic region, medical needs, and insurance network was created in [facility] Guide. This list was provided to the RN CM. Lynn Casey, Discharge Planning Asst.
--- NOTE | 2025-06-22 11:22 | CASEMGMT ---
Addendum entered by Elizabeth Carcamo 06/22/25 15:37: Referral sent to [facility] for FWW at this time via careport. Addendum entered by Elizabeth Carcamo 06/22/25 15:36: Unable to establish a RETAIL MARKETING SPECIALIST for pt at this time. CALDERON RODRIGUEZ requested [facility] educator to teach pt and family member at bedside in case no agency able to accept. The educator can come tomorrow. CALDERON RODRIGUEZ into pt room, pt was on phone with nurse educator. Discussed with pt that if a RETAIL MARKETING SPECIALIST cannot be established that the infusion company could educate her and a family member bedside and she would need to come into the hospital infusion center weekly for picc dressing change and labs. Pt states she would be agreeable to doing this. She states she is having the infusion company reach out to her son directly to set up a time for the bedside teaching. Pt denies further needs at this time. CALDERON RODRIGUEZ to follow up after teaching completed. Pt states her pain is what is holding her back now. Updated hospitalist. Addendum entered by Elizabeth Carcamo 06/22/25 13:41: Updated [facility] of address pt will be staying at. Addendum entered by Elizabeth Carcamo 06/22/25 13:39: CALDERON RODRIGUEZ into pt room, pt called son to obtain his address. It is [id number] [place] [address]. CALDERON RODRIGUEZ confirmed with him that he is willing to be a teachable cg. Addendum entered by Elizabeth Carcamo 06/22/25 12:20: Referral sent to [facility] at this time via [facility]. Original Note: CALDERON RODRIGUEZ into pt room as dc research assistant member states pt would like to return home. Pt states she wants to go to her son and dtr in law's home at [place] in [place]. Pt states they have experience giving IV's to family members. Pt is agreeable to [facility]. She is aware that this CALDERON RODRIGUEZ will get a list for her to review. Pt states she doesn't care who comes out. She is aware that medicare rates them by star ratings. She states to go in order of closest to the home with highest star ratings. Pt does not want to pick agency. Discussed expecations of HHC with pt. Pt is also in need of a FWW. Provided pt with a verbal local in network list of DME companies, pt chose [employer]. Discussed infusion companies and pt has no preference. She is agreeable to [facility]. Requested dc research assistant member send HH referrals based on pt request, requesting SN and PT. Pt denies further needs at this time.
--- NOTE | 2025-06-22 12:28 | CASEMGMT ---
Addendum entered by Lynn Casey 06/23/25 12:26: [facility] has accepted. CALDERON RODRIGUEZ updated. Lynn Casey DC Planning Asst. Addendum entered by Lynn Casey 06/22/25 16:02: Referral faxed to [facility]. Fax confirmation rec'd. Lynn Casey DC Planning Asst. Addendum entered by Lynn Casey 06/22/25 15:03: [facility], and [place] declined d/t being [id number]. [facility] and [facility] declined d/t no staffing. left for [facility] and [facility]. CALDERON RODRIGUEZ updated. Lynn Casey DC Planning Asst. Addendum entered by Lynn Casey 06/22/25 13:39: Both have declined. HH referral sent to [facility], [facility], [facility], [facility], [facility], and [facility]. Lynn Casey DC Planning Asst. Original Note: Discharge Planning HH referral sent to [facility] and [facility]. Lynn Casey DC Planning Asst.
[2025-06-22] MEDS: 0.9% Saline Lock 10 ML Syringe IV ×3 (12:45→23:59)
--- NOTE | 2025-06-22 13:01 | PCM.PN.ORT ---
Subjective Subjective REINIER EWING, is a 55 F who presented with right-sided flank and hip pain. Patient was seen at the bedside today she was laying on her left side which is the only comfortable position for her. Patient just had PICC line placed at bedside and is experiencing creased pain to her right thigh. s/p L2-4 anterior fusion on 06/12/2025. Presented to ED 06/20/2025, MRI completed and dx with right psoas abscess, being managed by Infectious disease, Dr. Bowens with IV Antibiotics. Patient denies any wound complications. Dressings are off in the left flank. Her main symptom seems to be pain to right hip, thigh and radiating towads R flank. Sx aggravated after positioning and placement of PICC line. Reports not wellcontrolled with oral Oxycodone, pending IV Dilaudid dose. Continues with difficulty with flexing the right hip. She has been able to walk with PT. admitted on vanc/ceftriaxone. Objective Data Objective Data Vital Signs: Vital Signs Temp Pulse Resp BP Pulse Ox O2 Del Method 97.9 F 71 16 159/93 H 97 Room Air 06/22/25 10:00 06/22/25 10:00 06/22/25 10:00 06/22/25 10:00 06/22/25 10:00 06/22/25 10:00 Oxygen Delivery Method Room Air Weight: 230 lb Body Mass Index (BMI) 37.1 Intake & Output: Intake and Output for Last 24 Hours 06/20/25 06/21/25 06/22/25 23:59 23:59 23:59 Intake Total 2270 / 2270 1120 / 1120 1235 / 1235 Output Total 100 / 100 Balance 2170 / 2170 1120 / 1120 1235 / 1235 Lab / Micro Data Attestation: I reviewed the patient's lab results. 06/22/25 05:51 06/22/25 05:51 Labs: Laboratory Results - last 24 hr 06/22/25 05:51: WBC 7.0, RBC 3.63 L, Hgb 10.9 L, Hct 31.8 L, MCV 87.6, MCH 30.0, MCHC 34.3, RDW Std Deviation 38.5, RDW Coeff of Randell 11.9, Plt Count 348, MPV 8.4, Immature Gran % (Auto) 0.900, Neut % (Auto) 58.5, Lymph % (Auto) 27.1, [place] % (Auto) 9.6, Eos % (Auto) 3.0, Baso % (Auto) 0.9, Absolute Neuts (auto) 4.1, Absolute Lymphs (auto) 1.89, Nucleated RBC % 0, Sodium 127 L, Potassium 4.4, Chloride 93 L, Carbon Dioxide 23.5, Anion Gap 10, BUN 9, Creatinine 0.46 L, Estim Creat Clear Calc 166.67, Est GFR (MDRD) Non-Af 112, BUN/Creatinine Ratio 18.8, Glucose 173 H, Calcium 9.2 Micro: Microbiology 06/19/25 20:43 Blood Culture (Wb) - Anticubital Left Blood Culture - Preliminary No growth in 48 hours. 06/19/25 20:38 Blood Culture (Wb) - Right Forearm Blood Culture - Preliminary No growth in 48 hours. Radiography Diagnostic Testing: MRI from 06/19/2025 showed: Asymmetric edema and multiple small marginally enhancing fluid collections within the right psoas muscle, concerning for myositis and small intramuscular abscess formations. The largest collections measure up to 15 x 13 mm superiorly, and 12 x 11 mm anteroinferiorly (see chaudhary images). Metallic artifact otherwise limits evaluation of the immediately adjacent paravertebral soft tissues. Physical Exam Narrative Patient laying on left lateral side and unable to assess left flank surgical incision at this time. Patient denies any back pain and is in position of comfort awaiting pain medications. Distal motor or sensory intact with brisk cap refill at 2 seconds Const alert and oriented x3 Constitutional Narrative: Patient appears uncomfortable secondary to pain, lying on left side with legs bent General Appearance: cooperative HEENT normocephalic Resp normal respiratory effort Effort and Inspection: able to speak in complete sentences Extremity normal capillary refill, no calf tenderness and no pedal edema General Extremity: Negative for calf tenderness Skin no rashes or lesions noted Assessment & Plan Assessment/Plan (1) Status post lumbar spinal fusion: (2) Psoas abscess, right: PLAN: Plan Continue treatment of psoas abscess per ID recommendations, PICC line has been placed for extended IV antibiotics. Continue PT/OT. Appreciate hospitalist and ID following. Per today's ID note, anticipate need for rehab stay At this time, Ortho signs off. Please contact office if additional consultation/evaluation indicated. Anticipate Ortho follow-up in approximately 1 week with repeat imaging, sooner for changes or concerns Case collaborated with Dr. Benedict and MIKA Norris This document has been transcribed using [employer] dictation software. There may be incorrect words, spelling, and punctuation.
[2025-06-22] MEDS: Cefepime HCl 2 GM in 0.9% Normal Saline (100mL MB+) 100 ML IV ×2 (14:04→22:05)
[2025-06-22 15:03] VITALS: BP 138/78; PULSE 70; RESP 17; TEMP 36.9; O2SAT 98
[2025-06-22 20:16] VITALS: BP 198/97; PULSE 79; RESP 18; TEMP 36.3; O2SAT 100
[2025-06-22] MEDS: Vancomycin Trough/Random Due 1 LAB MC (20:33)
[2025-06-22 21:10] LABS: Vancomycin, Trough Level 10.2 ug/mL (5.0-15.0)
--- NOTE | 2025-06-22 21:57 | PCM.RX.CS ---
Consult Antibiotic Management Pharmacy has been consulted to manage selected antibiotic: Vancomycin Type of Intervention Type of Consult: Follow-up Labs Labs: Sodium 127 mmol/L (133-145) L 06/22/25 05:51 Potassium 4.4 mmol/L (3.3-5.1) 06/22/25 05:51 Chloride 93 mmol/L (98-108) L 06/22/25 05:51 Carbon Dioxide 23.5 mmol/L (21.0-32.0) 06/22/25 05:51 Anion Gap 10 (5-15) 06/22/25 05:51 BUN 9 mg/dL (4-19) 06/22/25 05:51 Creatinine 0.46 mg/dL (0.70-1.20) L 06/22/25 05:51 Est GFR (MDRD) Non-Af 112 (>60) 06/22/25 05:51 BUN/Creatinine Ratio 18.8 RATIO (10-20) 06/22/25 05:51 Glucose 173 mg/dL (70-99) H 06/22/25 05:51 Vancomycin Trough 10.2 ug/mL (5.0-15.0) 06/22/25 20:30 Microbiology Microbiology: Microbiology 06/19/25 20:43 Blood Culture (Wb) - Anticubital Left Blood Culture - Preliminary No growth in 48 hours. 06/19/25 20:38 Blood Culture (Wb) - Right Forearm Blood Culture - Preliminary No growth in 48 hours. Goal Trough Goal Trough: 10-15 mcg/mL Pharmacy Plan for Drug Dosing Pharmacy Plan for Drug Dosing: Pharmacy Service will continue to monitor and adjust dosing as required. TROUGH 10.2 (GOAL 10-15) NO CHANGES, FOLLOW UP TROUGH IN 2 DAYS Follow-Up Labs Follow-Up Labs: Trough: Vancomycin Date/Time Labs Ordered Labs to be done on [date and time ordered]: 06/24 @ 2030
[2025-06-22] MEDS: Magnesium Chloride 64 MG Delay Rel.Tablet 128 MG PO (22:04)
[2025-06-22] MEDS: Pioglitazone Hydrochloride 30 MG Tablet PO (22:04)
[2025-06-22] MEDS: 0.9% Normal Saline (250mL Bag) 250 ML 15 ML IV ×2 (22:06)
[2025-06-22] MEDS: MELATONIN 10 MG TABLET 5 MG PO (22:29)
[2025-06-23 02:41] VITALS: BP 137/95; PULSE 67; RESP 18; TEMP 36.3; O2SAT 100
[2025-06-23] MEDS: Cefepime HCl 2 GM in 0.9% Normal Saline (100mL MB+) 100 ML IV ×2 (06:21→13:23)
--- NOTE | 2025-06-23 08:13 | PCM.PN.HOSP ---
Subjective Subjective Continues to have pain and anxiety episodes Objective Data Objective Data Vital Signs: Vital Signs Temp Pulse Resp BP Pulse Ox O2 Del Method 97.4 F L 67 18 137/95 H 100 Room Air 06/23/25 02:41 06/23/25 02:41 06/23/25 02:41 06/23/25 02:41 06/23/25 02:41 06/23/25 02:41 Oxygen Delivery Method Room Air Weight: 230 lb Body Mass Index (BMI) 37.1 Intake & Output: Intake and Output for Last 24 Hours 06/22/25 06/23/25 06/24/25 03:59 03:59 03:59 Intake Total 1470 / 1470 2120 / 2120 600 / 600 Balance 1470 / 1470 2120 / 2120 600 / 600 Lab / Micro Data 06/22/25 05:51 06/22/25 05:51 Labs: Laboratory Results - last 24 hr 06/22/25 20:30: Vancomycin Trough 10.2 Micro: Microbiology 06/19/25 20:43 Blood Culture (Wb) - Anticubital Left Blood Culture - Preliminary No growth in 48 hours. 06/19/25 20:38 Blood Culture (Wb) - Right Forearm Blood Culture - Preliminary No growth in 48 hours. Physical Exam Narrative General: Alert, Oriented x3, Cooperative, No apparent distress HEENT: Atraumatic, PERRLA, EOMI, Normocephalic Oral: Moist Mucosa Neck: Supple, No JVD Lungs: Diminished, Normal air movement, No rhonchi, No wheeze, No rales Cardiovascular: Regular rate, Regular Rhythm, Normal S1, Normal S2, No murmurs Abdomen: Soft, Non Tender, Non-Distended, No Hepato-splenomegaly Extremities: No edema, Capillary Refill Less than 3 Seconds Skin: No rashes, No breakdown Musculoskeletal: Mild tenderness to palpation of her right thigh/hip joint Neurological: No focal neurological deficits, moves all extremities Psych/Mental Status: Anxious Assessment & Plan Assessment/Plan (1) Back pain: PLAN: Plan 1. Right probable psoas abscess She recently had laminectomy on June 12, 2025 and the incision was in the left flank. Says she had been having increased pain since then. She was found to have a UTI so she went to outside hospital ED. She was sent home on antibiotics after CT was done. However she continued to have pain so she came to the ED. MRI done showed postoperative changes from L4-S1 laminectomy and new asymmetrical edema showing L2-L3 spondylodiscitis and right psoas muscle belly abscess Currently on IV vancomycin and ceftriaxone. PT OT on board. P.o. Tylenol, p.o. oxycodone and IV dilaudid prn as needed for pain. Past [facility] recommendations to consult ID to see if patient will need drainage of the abscess or just long-term IV antibiotics. 06/22/2025: Continues to have multiple small right psoas muscle abscesses that are not amenable to drainage. Will discuss with infectious disease about placing a PICC line and long-term IV antibiotics. Will add oxycodone to her medication regimen while here as she cannot go home on IV pain medications. 06/23/2025: PICC line is in place in right upper extremity with IV antibiotics ordered. Biggest limitation is pain so we will adjust her pain management as well as see if controlling her anxiety helps control her pain #Hyponatremia: sodium level was 122 on admission. Now 129. continue to monitor closely – Sodium level is improving to 127 today #Bipolar disorder: On bupropion and aripiprazole, venlafaxine and carbamazepine #Hypertension: On metoprolol #Type 2 diabetes mellitus: On metformin and pioglitazone. Insulin sliding scale. Accuchecks ACHS. #PTSD:stable. DVT: Heparin Charges/Coding Visit Charges Inpatient E&M: 42867 Subs Hosp L2
[2025-06-23] MEDS: metFORMIN (XR) 500 MG Tablet 1000 MG PO (08:28)
[2025-06-23] MEDS: NIFEdipine 90 MG Tablet PO (08:29)
[2025-06-23] MEDS: buPROPion (XL) 300 MG TABLET.XL PO (08:29)
[2025-06-23 08:30] VITALS: BP 152/94; PULSE 74; RESP 18; TEMP 36.3; O2SAT 97
[2025-06-23 08:31] LABS: Hematocrit 35.2 % (37-47); Hemoglobin 12.3 g/dL (12.0-15.0); Immature Granulocytes Count 0.040 X10^3/uL (0.0-0.0); Mean Corp Hgb Conc 34.9 g/dL (32-36); Mean Corpuscular Volume 86.7 fL (81-99); Mean Platelet Vol. 8.6 fl (6.2-12.0); NRBC Flagged by Analyzer 0 % (0-5); Platelet Count 415 K/mm3 (150-450); RBC Distribution Width CV 12.1 % (11.6-14.6); RBC Distribution Width SD 38.5 fl (35.1-43.9); Red Blood Count 4.06 M/mm3 (4.2-5.4); White Blood Count 6.3 K/mm3 (4.4-11.0)
[2025-06-23] MEDS: Vancomycin HCl 1,750 MG in 0.9% Normal Saline (500mL Bag) 500 ML 250 MG IV (08:40)
[2025-06-23 09:02] LABS: Anion Gap 11 (5-15); BUN 8 mg/dL (4-19); BUN/Creat Ratio 17.2 RATIO (10-20); Calcium,Total 9.5 mg/dL (7.6-11.0); Carbon Dioxide 24.1 mmol/L (21.0-32.0); Chloride 94 mmol/L (98-108); Estimated Creatinine Clearance 170.37 ml/min (50-250); Glucose 197 mg/dL (70-99); Potassium 4.1 mmol/L (3.3-5.1)
--- NOTE | 2025-06-23 10:46 | CASEMGMT ---
Addendum entered by Elizabeth Carcamo 06/23/25 13:03: Updated [facility] that pt does have HHC. Addendum entered by Elizabeth Carcamo 06/23/25 13:02: [facility] has accepted pt for care. CALDERON RODRIGUEZ into pt room, she is aware that HHC will be out tomorrow to see her and she does not need to come in weekly for picc dressing changes and labs. Pt is aware of medications that need to be given tonight and [facility] will deliver to her son's home. Pt denies any further questions at this time. Addendum entered by Elizabeth Carcamo 06/23/25 11:20: Updated hospitalist on pt dc plan. Original Note: [facility] educator states pt and son able to administer IV atb. Delivery of meds will be this evening. CALDERON RODRIGUEZ into pt room, pt and son present, they both state they feel comfortable with the IVs. Pt states that a SUPERVISOR [employer] RO[employer] called her to set up a time to come out. She is unsure if it was [facility] or [facility]. Requested dc enterprise resource planner check on this. Pt may dc after 2pm dose. Pt states her son can pick her up after 4:30pm. Pt is aware that meds will be due at 9pm and 10 pm tonight. Pt denies further needs at this time.
--- NOTE | 2025-06-23 12:32 | DCINST_ITS ---
Discharge Instructions DC O2, CPAP, BIPAP needs Home O2 Discharge instructions: No Dressing / Incision Discharge Activity: Return to Normal Activity Dressing / Incision Call your doctor if you observe: Fever of 101 or Higher, Shortness of breath, Dizziness, Fainting spells, Swelling in the ankles, Chest pain and Increased palpitations (irregular heartbeat) Follow Up Care Test Results: Test results from this visit will be discussed in further detail at your follow- up appointment, if applicable. Discharge Plan Admission Admit Date/Time: 06/19/25 21:18 Attending Provider: Kentrell Galindo Primary Care Provider: Suzanne Arroyo Consulting Providers: Yair Benedict; Servando To; Kd Bowens; Tran Morgan Discharge Orders/Prescriptions Prescriptions: New vancomycin 1.75 gram recon soln 1.75 g IV Q12H 41 Days Rx Instructions: stop date 08/02/25. Dx: deep surg site infection. Weekly bmp, cbc, ESR, and vanc trough. Fax to [phone]. Routine picc care per protocol. cefepime 2 gram Recon Soln 2 g IV Q8 41 Days Qty: 123 0RF Rx Instructions: stop date 08/02/25. Dx: deep surg site infection. Weekly bmp, cbc, ESR, and vanc trough. Fax to [phone]. Routine picc care per protocol. oxycodone 5 mg Tablet 5 mg PO Q4H PRN PRN (Reason: Pain Score 4-10) 3 Days Qty: 15 0RF alprazolam [Xanax] 0.25 mg tablet 0.25 mg PO DAILY PRN (Reason: anxiety) Qty: 10 0RF Continued multivitamin Tablet 1 tab PO DAILY aspirin 81 mg tablet 81 mg PO DAILY turmeric root extract 500 mg capsule 1,000 mg PO BID magnesium 250 mg tablet 500 mg PO QHS metformin 500 mg tablet extended release 24 hr 1,000 mg PO BID venlafaxine 150 mg capsule,extended release 24hr 150 mg PO DAILY 30 Days Qty: 30 2RF bupropion HCl 300 mg tablet extended release 24 hr 300 mg PO QAM 30 Days Qty: 30 2RF vitamin D3-vitamin K2 125 mcg (5,000 unit)-100 mcg capsule 1 cap PO DAILY omega [id number]-fish oil [Fish Oil] 1,200 (144-216) mg capsule 2 cap PO DAILY pioglitazone 30 mg tablet 30 mg PO QHS aripiprazole 15 mg tablet 15 mg PO QHS acetaminophen 500 mg Tablet 1,000 mg PO Q6H Qty: 30 0RF meloxicam 15 mg Tablet 15 mg PO DAILY Qty: 30 0RF methocarbamol 500 mg Tablet 750 mg PO TID PRN (Reason: Pain/spasms) Qty: 30 0RF Patient Comments: finished this morning oxycodone 5 mg Tablet 2.5 - 5 mg PO Q6H PRN (Reason: pain) 7 Days Qty: 28 0RF Patient Comments: took last dose today carvedilol 12.5 mg tablet 12.5 mg PO BID nifedipine 90 mg tablet extended release 90 mg PO DAILY valsartan 160 mg tablet 160 mg PO DAILY melatonin 5 mg capsule 5 mg PO QHS PRN carbamazepine 200 mg tablet 400 mg PO BID Discontinued ketorolac 10 mg tablet 10 mg PO Q6H PRN PRN (Reason: pain) Patient Comments: took last dose of medication at 4am cephalexin 500 mg capsule 500 mg PO 4X/DAY Patient Comments: took at 10 am Referrals / Follow Up: Yair Benedict MD [Med Staff - Active Staff, Orthopedics] - Within 1 Week Kd Bowens MD [Med Staff - Active Staff, Infectious Disease] - Within 2 Weeks Suzanne Arroyo NP-C [Primary Care Provider, Family Practice] - Within 1 Week Disposition Disposition (needs filled in before D/C Order can be placed): Home Health Service
--- NOTE | 2025-06-23 13:54 | PHA.DC.MC.R ---
Pharmacy [facility] Counseling Pharmacy Service has performed discharge medication reconciliation and counseling for this patient. The patient's discharge medication list was reviewed for discrepancies and discrepancies were resolved. The patient was counseled on the following discharge medications and changes in medications for homegoing were reviewed. The Reason for Use, instructions for use, and potential side effects were reviewed for all new medications. The patient's questions regarding all of their medications were answered. 1. Cefepime 2 grams Q8H X 41 days 2. Vancomycin 1.75 Q12H X 41 days 3. Xanax 0.25 mg PO daily PRN anxiety 4. Oxycodone 5 mg PO Q4H PRN pain 4-10 The patient was able to verbally demonstrate an understanding of their discharge medications. The patient was counselled on new medications by pharmacy technician per diem David. Medications at Discharge Home Medications multivitamin 1 tab PO DAILY SUPPLEMENT 09/22/22 aspirin 81 mg tablet 81 mg PO DAILY HEART HEALTH 11/20/23 magnesium 250 mg tablet 500 mg PO QHS CRAMPS 11/20/23 turmeric root extract 500 mg capsule 1,000 mg PO BID SUPPLEMENT 11/20/23 metformin 500 mg tablet,extended release 24 hr 1,000 mg PO BID DIABETES 12/17/23 bupropion HCl 300 mg 24 hr tablet, extended release 300 mg PO QAM PTSD 30 days #30 tabs 05/23/25 venlafaxine 150 mg capsule,extended release 24 hr 150 mg PO DAILY BIPOLAR 30 days #30 caps 05/23/25 aripiprazole 15 mg tablet 15 mg PO QHS BIPOLAR 05/26/25 omega 1-nmh-wor-fish oil 1,200 mg (144 mg-216 mg) capsule (Fish Oil) 2 cap PO DAILY SUPPLEMENT 05/26/25 pioglitazone 30 mg tablet 30 mg PO QHS DIABETES 05/26/25 vitamin D3 125 mcg (5,000 unit)-vitamin K2 100 mcg capsule 1 cap PO DAILY SUPPLEMENT 05/26/25 acetaminophen 500 mg tablet 1,000 mg (2 x 500 mg) PO Q6H #30 tabs 06/13/25 meloxicam 15 mg tablet 15 mg PO DAILY #30 tabs 06/13/25 methocarbamol 500 mg tablet 750 mg (1.5 x 500 mg) PO TID PRN Pain/spasms #30 tabs 06/13/25 oxycodone 5 mg tablet 2.5 - 5 mg (0.5 - 1 x 5 mg) PO Q6H PRN pain 7 days #28 tabs 06/13/25 carbamazepine 200 mg tablet 400 mg PO BID BIPOLAR 06/19/25 carvedilol 12.5 mg tablet 12.5 mg PO BID 06/19/25 melatonin 5 mg capsule 5 mg PO QHS PRN 06/19/25 nifedipine 90 mg tablet,extended release 90 mg PO DAILY 06/19/25 valsartan 160 mg tablet 160 mg PO DAILY 06/19/25 cefepime 2 gram solution for injection 2 g IV Q8 41 days #123 ea 06/22/25 vancomycin 1.75 gram intravenous solution 1.75 g IV Q12H 41 days 06/22/25 alprazolam 0.25 mg tablet (Xanax) 0.25 mg PO DAILY PRN anxiety #10 tabs 06/23/25 oxycodone 5 mg tablet 5 mg PO Q4H PRN PRN Pain Score 4-10 3 days #15 tabs 06/23/25
--- NOTE | 2025-06-23 14:33 | DS.PCM_ITS ---
Providers Date of Admission: 06/19/25 Primary Care Physician: REGGIE Arias Consultations 06/19/25 22:32 Consult: Orthopedics Routine Consulting Provider: Yair Benedict Reason for Consult: back pain EMERGENT Consult: Yes MD Notified: Yes Date Notified: 06/19/25 Time Notified: 21:21 Method of Notification: ED Physician Initiated 06/21/25 07:34 Consult: Infectious Disease Routine Consulting Provider: Kd Bowens Reason for Consult: right psoas muscle abscess EMERGENT Consult: No MD Notified: Yes Date Notified: 06/21/25 Time Notified: 07:34 Method of Notification: Text Reason For Visit: BACK PAIN Diagnosis Discharge Diagnosis (1) Back pain: Status: Acute Code(s): M54.9 - Dorsalgia, unspecified Medications at Discharge Home Medications multivitamin 1 tab PO DAILY SUPPLEMENT 09/22/22 aspirin 81 mg tablet 81 mg PO DAILY HEART HEALTH 11/20/23 magnesium 250 mg tablet 500 mg PO QHS CRAMPS 11/20/23 turmeric root extract 500 mg capsule 1,000 mg PO BID SUPPLEMENT 11/20/23 metformin 500 mg tablet,extended release 24 hr 1,000 mg PO BID DIABETES 12/17/23 bupropion HCl 300 mg 24 hr tablet, extended release 300 mg PO QAM PTSD 30 days #30 tabs 05/23/25 venlafaxine 150 mg capsule,extended release 24 hr 150 mg PO DAILY BIPOLAR 30 days #30 caps 05/23/25 aripiprazole 15 mg tablet 15 mg PO QHS BIPOLAR 05/26/25 omega 9-lje-daf-fish oil 1,200 mg (144 mg-216 mg) capsule (Fish Oil) 2 cap PO DAILY SUPPLEMENT 05/26/25 pioglitazone 30 mg tablet 30 mg PO QHS DIABETES 05/26/25 vitamin D3 125 mcg (5,000 unit)-vitamin K2 100 mcg capsule 1 cap PO DAILY SUPPLEMENT 05/26/25 acetaminophen 500 mg tablet 1,000 mg (2 x 500 mg) PO Q6H #30 tabs 06/13/25 meloxicam 15 mg tablet 15 mg PO DAILY #30 tabs 06/13/25 methocarbamol 500 mg tablet 750 mg (1.5 x 500 mg) PO TID PRN Pain/spasms #30 tabs 06/13/25 oxycodone 5 mg tablet 2.5 - 5 mg (0.5 - 1 x 5 mg) PO Q6H PRN pain 7 days #28 tabs 06/13/25 carbamazepine 200 mg tablet 400 mg PO BID BIPOLAR 06/19/25 carvedilol 12.5 mg tablet 12.5 mg PO BID 06/19/25 melatonin 5 mg capsule 5 mg PO QHS PRN 06/19/25 nifedipine 90 mg tablet,extended release 90 mg PO DAILY 06/19/25 valsartan 160 mg tablet 160 mg PO DAILY 06/19/25 cefepime 2 gram solution for injection 2 g IV Q8 41 days #123 ea 06/22/25 vancomycin 1.75 gram intravenous solution 1.75 g IV Q12H 41 days 06/22/25 alprazolam 0.25 mg tablet (Xanax) 0.25 mg PO DAILY PRN anxiety #10 tabs 06/23/25 oxycodone 5 mg tablet 5 mg PO Q4H PRN PRN Pain Score 4-10 3 days #15 tabs 06/23/25 Hospital Course Operations None Procedures PICC line placement Summary of Care Provided Minutes Spent on Discharge: 35 Hospital Course: Per HPI: REINIER EWING, is a 55 F who presents to the emergency room with chief complaint of back pain. Patient has significant past medical history of lumbar stenosis with neurogenic claudication, hypercholesterolemia TIA, PTSD, bipolar disorder, hypertension, diabetes who is status post laminectomy done by Dr. Wynn on June 12, 2025. Patient states she moved the wrong way several days ago and noticed that she has had increased pain since that time. She went to the [facility] and workup including CT at that time was found to have a UTI and was sent home with antibiotics. Today she continued to have further pain and was sent to the emergency room here by Dr. Wynn's advice patient denies any urinary or fecal incontinence. Patient denies any chest pain, shortness of breath, nausea vomiting or diarrhea. Laboratory studies were show white blood cell count of 8.6, hemoglobin 11.1, hematocrit 31.9, platelets 340, sodium 122, potassium 4.4, chloride 85, bicarb 23, BUN 16, creatinine 0.49, glucose 159, AST 19, ALT 18, albumin 3.7. 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 And continued spinal stenosis of L2-3. Patient was started on vancomycin and Rocephin in the emergency room and given pain medication. Patient will be admitted to the medical surgical floor and Dr. Wynn will be consulted. Hospital Course: 1. Right probable psoas abscess * She recently had laminectomy on June 12, 2025 and the incision was in the left flank. Says she had been having increased pain since then. She was found to have a UTI so she went to outside hospital ED. She was sent home on antibiotics after CT was done. * However she continued to have pain so she came to the ED. MRI done showed postoperative changes from L4-S1 laminectomy and new asymmetrical edema showing L2-L3 spondylodiscitis and right psoas muscle belly abscess * Currently on IV vancomycin and ceftriaxone. * PT OT on board. P.o. Tylenol, p.o. oxycodone and IV dilaudid prn as needed for pain. * Past [facility] recommendations to consult ID to see if patient will need drainage of the abscess or just long-term IV antibiotics. 06/22/2025: Continues to have multiple small right psoas muscle abscesses that are not amenable to drainage. Will discuss with infectious disease about placing a PICC line and long-term IV antibiotics. Will add oxycodone to her medication regimen while here as she cannot go home on IV pain medications. 06/23/2025: She had a PICC line in place and prescriptions for vancomycin and cefepime, she was taught today by nursing on how to administer the antibiotics. In discussion with nursing staff overnight and this morning it did feel like there is a possibility of some anxiety leading to increased sensation of pain so she was given a dose of x 1 Xanax which she says has helped her pain tolerance and that she think she will be able to go home on oxycodone alone. She does have follow-up set up with neurosurgery as well as infectious disease in 2 weeks and I recommend she follow-up with her PCP in 3 to 5 days. I did provide her a short course of oxycodone and Xanax and we had an extensive discussion on the likelihood that her pain will improve as the antibiotics do what they are supposed to. The MRI of her back did not show any significant issues other than the abscess and therefore I am fairly confident that this is the cause of her right sided hip pain. She expressed understanding of the risks and benefits of going home and would like to go home today. No other changes were made to her home medication list. #Hyponatremia: sodium level was 122 on admission. Now 129 on the day of discharge recommend outpatient follow-up with monitoring #Bipolar disorder: On bupropion and aripiprazole, venlafaxine and carbamazepine #Hypertension: On metoprolol #Type 2 diabetes mellitus: On metformin and pioglitazone. Insulin sliding scale. Accuchecks ACHS. #PTSD:stable. Weight / BMI Weight Weight: 230 lb Body Mass Index (BMI) 37.1 ABG / Lab / Microbiology Data 06/23/25 08:19 06/23/25 08:19 Laboratory: Laboratory Results - last 24 hr 06/22/25 20:30: Vancomycin Trough 10.2 06/23/25 08:19: WBC 6.3, RBC 4.06 L, Hgb 12.3, Hct 35.2 L, MCV 86.7, MCH 30.3, MCHC 34.9, RDW Std Deviation 38.5, RDW Coeff of Randell 12.1, Plt Count 415, MPV 8.6, Immature Gran % (Auto) 0.600, Neut % (Auto) 62.5, Lymph % (Auto) 24.9, [place] % (Auto) 8.7, Eos % (Auto) 2.5, Baso % (Auto) 0.8, Absolute Neuts (auto) 3.9, Absolute Lymphs (auto) 1.57, Nucleated RBC % 0, Sodium 129 L, Potassium 4.1, C hloride 94 L, Carbon Dioxide 24.1, Anion Gap 11, BUN 8, Creatinine 0.45 L, Estim Creat Clear Calc 170.37, Est GFR (MDRD) Non-Af 113, BUN/Creatinine Ratio 17.2, G lucose 197 H, Calcium 9.5 Microbiology: Microbiology 06/19/25 20:43 Blood Culture (Wb) - Anticubital Left Blood Culture - Preliminary No growth in 48 hours. 06/19/25 20:38 Blood Culture (Wb) - Right Forearm Blood Culture - Preliminary No growth in 48 hours. D/C Instructions Call your doctor if you observe: Fever of 101 or Higher, Shortness of breath, Dizziness, Fainting spells, Swelling in the ankles, Chest pain and Increased palpitations (irregular heartbeat) DC O2, CPAP, BIPAP Needs Home O2 Discharge instructions: No Meaningful Use Info Meaningful Use Meaningful Use Diagnoses (Choose all that apply): None applicable Discharge Plan Admission Admit Date/Time: 06/19/25 21:18 Attending Provider: Kentrell Galindo Primary Care Provider: Suzanne Arroyo Consulting Providers: Yair Benedict; Servando To; Kd Bowens; Tran Morgan Discharge Orders/Prescriptions Prescriptions: New vancomycin 1.75 gram recon soln 1.75 g IV Q12H 41 Days Rx Instructions: stop date 08/02/25. Dx: deep surg site infection. Weekly bmp, cbc, ESR, and vanc trough. Fax to [phone]. Routine picc care per protocol. cefepime 2 gram Recon Soln 2 g IV Q8 41 Days Qty: 123 0RF Rx Instructions: stop date 08/02/25. Dx: deep surg site infection. Weekly bmp, cbc, ESR, and vanc trough. Fax to [phone]. Routine picc care per protocol. oxycodone 5 mg Tablet 5 mg PO Q4H PRN PRN (Reason: Pain Score 4-10) 3 Days Qty: 15 0RF alprazolam [Xanax] 0.25 mg tablet 0.25 mg PO DAILY PRN (Reason: anxiety) Qty: 10 0RF Continued multivitamin Tablet 1 tab PO DAILY aspirin 81 mg tablet 81 mg PO DAILY turmeric root extract 500 mg capsule 1,000 mg PO BID magnesium 250 mg tablet 500 mg PO QHS metformin 500 mg tablet extended release 24 hr 1,000 mg PO BID venlafaxine 150 mg capsule,extended release 24hr 150 mg PO DAILY 30 Days Qty: 30 2RF bupropion HCl 300 mg tablet extended release 24 hr 300 mg PO QAM 30 Days Qty: 30 2RF vitamin D3-vitamin K2 125 mcg (5,000 unit)-100 mcg capsule 1 cap PO DAILY omega 1-gcy-ovz-fish oil [Fish Oil] 1,200 (144-216) mg capsule 2 cap PO DAILY pioglitazone 30 mg tablet 30 mg PO QHS aripiprazole 15 mg tablet 15 mg PO QHS acetaminophen 500 mg Tablet 1,000 mg PO Q6H Qty: 30 0RF meloxicam 15 mg Tablet 15 mg PO DAILY Qty: 30 0RF methocarbamol 500 mg Tablet 750 mg PO TID PRN (Reason: Pain/spasms) Qty: 30 0RF Patient Comments: finished this morning oxycodone 5 mg Tablet 2.5 - 5 mg PO Q6H PRN (Reason: pain) 7 Days Qty: 28 0RF Patient Comments: took last dose today carvedilol 12.5 mg tablet 12.5 mg PO BID nifedipine 90 mg tablet extended release 90 mg PO DAILY valsartan 160 mg tablet 160 mg PO DAILY melatonin 5 mg capsule 5 mg PO QHS PRN carbamazepine 200 mg tablet 400 mg PO BID Discontinued ketorolac 10 mg tablet 10 mg PO Q6H PRN PRN (Reason: pain) Patient Comments: took last dose of medication at 4am cephalexin 500 mg capsule 500 mg PO 4X/DAY Patient Comments: took at 10 am Referrals / Follow Up: Yair Benedict MD [Med Staff - Active Staff, Orthopedics] - Within 1 Week Kd Bowens MD [Med Staff - Active Staff, Infectious Disease] - Within 2 Weeks Suzanne Arroyo NP-C [Primary Care Provider, Family Practice] - Within 1 Week Disposition Disposition (needs filled in before D/C Order can be placed): Home Health Service Charges/Coding Visit Charges Inpatient E&M: 45515 Disch Hosp >30min
[2025-06-23 14:55] VITALS: BP 154/86; PULSE 85; RESP 16; TEMP 36.5; O2SAT 97
--- NOTE | 2025-06-23 15:25 | CASEMGMT ---
Discharge Planning Discharge instructions and summary faxed to [facility]. Fax confirmation rec'd. Lynn Casey DC Planning Asst.
== END 2025-06-23 17:36 | disposition home health service (06) | DRG 372 ==
LOC: ED 20:47 → MS3 21:32
PROVIDERS: Emergency Medicine; Orthopaedic Surgery Orthopaedic Surgery of the Spine; Student in an Organized Health Care Education/Training Program; Admitting Provider Family Medicine; Emergency Provider Emergency Medicine; Visit Provider Family Medicine
DX: K68.12 Psoas muscle abscess (principal); E87.1 Hypo-osmolality and hyponatremia; F31.9 Bipolar disorder, unspecified; E11.40 Type 2 diabetes mellitus with diabetic neuropathy, unspecified; E66.813 Obesity, class 3; I10 Essential (primary) hypertension; M46.46 Discitis, unspecified, lumbar region; M48.061 Spinal stenosis, lumbar region without neurogenic claudication; F43.10 Post-traumatic stress disorder, unspecified; Z79.899 Other long term (current) drug therapy; Z79.82 Long term (current) use of aspirin; Z79.84 Long term (current) use of oral hypoglycemic drugs; Z87.891 Personal history of nicotine dependence; Z98.1 Arthrodesis status; Z86.73 Personal history of transient ischemic attack (TIA), and cerebral infarction without residual deficits; Z68.38 Body mass index [BMI] 38.0-38.9, adult
CPT/HCPCS: 36415; 36569; 72158; 80048; 80053; 80202; 83605; 85025; 85652; 86140; 87040; 97110; 97116; 97162; 97166; 97530; 97535; 99285; A9575; A4216; J2405

== ENCOUNTER 2025-06-24 12:59 | Inpatient (IN) | payer OTHER, SELFPAY ==
[2025-06-24] VITALS (7 sets, daily range): BP systolic 175–216; BP diastolic 83–117; PULSE 79–93; RESP 16–20; TEMP 36.6–37; O2SAT 96–99; BMI 36.3; BMI 35.9
--- NOTE | 2025-06-24 14:08 | PCM.HP.STD ---
HPI - General General Date of Admission: 06/24/25 HPI Narrative REINIER EWING, is a 55 F who presents to the hospital because she failed outpatient management, she was recently discharged from the hospital with a psoas muscle abscess that was nondrainable and the pain was fairly managed with Xanax and oxycodone and she was given a prescription for cefepime and vancomycin and had a PICC line placed. She request to be discharged home because she did not initially want to go to a [facility] and so she was discharged on 06/23/2025 and now returns to the hospital because she cannot manage at home. [facility] Medical History Migraines Lumbar stenosis with neurogenic claudication Obesity (BMI 30-39.9) Loss of hearing Wears glasses Post-menopausal Marijuana use Thyroid disease Ambulates with cane Walker as ambulation aid High cholesterol Back pain TIA (transient ischemic attack) Syncope Dietary restriction Vapes nicotine containing substance Former smoker CPAP (continuous positive airway pressure) dependence History of pain when walking History of echocardiogram Lumbar stenosis Cervical radiculopathy PTSD (post-traumatic stress disorder) Bipolar 1 disorder Vitamin D deficiency Neuropathy Hypertension Diabetes type 2, controlled Chronic bronchitis Arthritis Home Medications ?Medication ?Instructions ?Recorded ?Last Taken ?Type multivitamin 1 tab PO DAILY SUPPLEMENT 09/22/22 06/10/25 History aspirin 81 mg tablet 81 mg PO DAILY HEART HEALTH 11/20/23 06/19/25 History magnesium 250 mg tablet 500 mg PO QHS CRAMPS 11/20/23 06/10/25 History turmeric root extract 500 mg 1,000 mg PO BID SUPPLEMENT 11/20/23 06/10/25 History capsule metformin 500 mg tablet,extended 1,000 mg PO BID DIABETES 12/17/23 06/19/25 History release 24 hr bupropion HCl 300 mg 24 hr tablet, 300 mg PO QAM PTSD 30 days #30 tabs 05/23/25 06/19/25 Rx extended release venlafaxine 150 mg 150 mg PO DAILY BIPOLAR 30 days 05/23/25 06/18/25 Rx capsule,extended release 24 hr #30 caps aripiprazole 15 mg tablet 15 mg PO QHS BIPOLAR 05/26/25 06/18/25 History omega 0-fff-ctx-fish oil 1,200 mg 2 cap PO DAILY SUPPLEMENT 05/26/25 06/10/25 History (144 mg-216 mg) capsule (Fish Oil) pioglitazone 30 mg tablet 30 mg PO QHS DIABETES 05/26/25 06/18/25 History vitamin D3 125 mcg (5,000 1 cap PO DAILY SUPPLEMENT 05/26/25 06/10/25 History unit)-vitamin K2 100 mcg capsule acetaminophen 500 mg tablet 1,000 mg (2 x 500 mg) PO Q6H #30 06/13/25 06/19/25 Rx tabs meloxicam 15 mg tablet 15 mg PO DAILY #30 tabs 06/13/25 06/18/25 Rx methocarbamol 500 mg tablet 750 mg (1.5 x 500 mg) PO TID PRN 06/13/25 06/19/25 Rx Pain/spasms #30 tabs oxycodone 5 mg tablet 2.5 - 5 mg (0.5 - 1 x 5 mg) PO Q6H 06/13/25 06/19/25 Rx PRN pain 7 days #28 tabs carbamazepine 200 mg tablet 400 mg PO BID BIPOLAR 06/19/25 06/19/25 History carvedilol 12.5 mg tablet 12.5 mg PO BID 06/19/25 06/19/25 History melatonin 5 mg capsule 5 mg PO QHS PRN 06/19/25 06/18/25 History nifedipine 90 mg tablet,extended 90 mg PO DAILY 06/19/25 06/19/25 History release valsartan 160 mg tablet 160 mg PO DAILY 06/19/25 06/19/25 History cefepime 2 gram solution for 2 g IV Q8 41 days #123 ea 06/22/25 Unknown Rx injection vancomycin 1.75 gram intravenous 1.75 g IV Q12H 41 days 06/22/25 Unknown Rx solution alprazolam 0.25 mg tablet (Xanax) 0.25 mg PO DAILY PRN anxiety #10 06/23/25 Unknown Rx tabs oxycodone 5 mg tablet 5 mg PO Q4H PRN PRN Pain Score 06/23/25 Unknown Rx 4-10 3 days #15 tabs Allergy/AdvReac Type Severity Reaction Status Date / Time azithromycin Allergy Mild Hives Verified 06/24/25 13:00 Sulfa (Sulfonamide Allergy Mild Other Verified 06/24/25 13:00 Antibiotics) Family History Other Alcoholism Anxiety Arthritis defect Breast cancer CVA (cerebral vascular accident) Cancer Depression Diabetes Hypertension Mental disorder Myocardial infarction Suicide attempt Surgical History History of lumbar fusion (~06/12/25) Hx of colonoscopy Hx of dilation and curettage Hx of decompressive lumbar laminectomy History of lumbar fusion Social History Smoking Status: Current every day smoker tobacco type: cigarettes and e-cigarettes Smokeless tobacco user: other alcohol intake: current alcohol intake frequency: other details: Rarley 3-4 a year substance use type: does not use ROS Constitutional Constitutional: Denies chills, fatigue, fever(s) or malaise Eyes Eyes: Denies blurry vision ENT HEENT: Denies headache(s) or nasal discharge Cardiovascular Cardiovascular: Denies chest pain, dyspnea on exertion or syncope Respiratory/Chest Respiratory/Chest: Denies cough, shortness of breath at rest or shortness of breath with exertion Gastrointestinal Gastrointestinal: Denies constipation, diarrhea, nausea or vomiting Genitourinary Genitourinary: Denies dysuria Musculoskeletal Musculoskeletal: Reports joint pain Neurologic Neurologic: Denies focal weakness, numbness or tremor(s) Psychiatric Psychiatric: Denies anxiety or depression Vital Signs Vital Signs Vital Signs: 06/24/25 13:00 06/24/25 13:03 06/24/25 13:42 Temperature 98.2 F 98.2 F Temperature Source Oral Oral Pulse Rate 93 93 Respiratory Rate 18 18 Respiratory Effort Normal Respiratory Pattern Normal Blood Pressure 175/101 H 175/101 H Blood Pressure Mean 125 125 Pulse Ox 99 99 Oxygen Delivery Method Room Air Room Air Weight Weight: 224 lb 13.944 oz Body Mass Index (BMI) 36.3 Physical Exam Narrative General: Alert, Oriented x3, Cooperative, No apparent distress HEENT: Atraumatic, PERRLA, EOMI, Normocephalic Oral: Moist Mucosa Neck: Supple, No JVD Lungs: Diminished, Normal air movement, No rhonchi, No wheeze, No rales Cardiovascular: Regular rate, Regular Rhythm, Normal S1, Normal S2, No murmurs Abdomen: Soft, Non Tender, Non-Distended, No Hepato-splenomegaly Extremities: No edema, Capillary Refill Less than 3 Seconds Skin: No rashes, No breakdown Musculoskeletal: Mild tenderness to palpation of her right thigh/hip joint Neurological: No focal neurological deficits, moves all extremities Psych/Mental Status: Normal affect, appropriate Results Lab / Micro Data 06/24/25 14:17 06/24/25 14:17 Assessment & Plan Assessment/Plan (1) Psoas abscess, right: PLAN: Plan 1. Right psoas abscess ?She recently had laminectomy on June 12, 2025 and the incision was in the left flank. Says she had been having increased pain since then. She was found to have a UTI so she went to outside hospital ED. She was sent home on antibiotics after CT was done. ?PT/OT ? Continue with antibiotics ? Continue with only oxycodone and Xanax no IV pain meds 2. Bipolar disorder/PTSD: On bupropion and aripiprazole, venlafaxine and carbamazepine 3. Essential hypertension: On metoprolol will monitor make adjustments as necessary 4. Type 2 diabetes mellitus: On metformin and pioglitazone. Insulin sliding scale. Accuchecks ACHS. DVT: Lovenox Charges/Coding Visit Charges Inpatient E&M: 82616 Init Hosp L2
--- OUTSIDE RECORDS SUMMARY | 2025-06-24 14:10 | XMS RPT_ITS | CCD ---
Author Organization [facility] Care Team Providers Care Software Engineer Name Role Phone ANUSHKA CORDERO Unavailable SUKHDEV, CHAOHUA Unavailable SUKHDEV, CHAOHUA Unavailable ANUSHKA CORDERO Unavailable SUKHDEV, CHAOHUA Unavailable SUKHDEV, CHAOHUA Unavailable ANUSHKA CORDERO Unavailable SUKHDEV, CHAOHUA Unavailable SUKHDEV, CHAOHUA Unavailable ANUSHKA CORDERO Unavailable ANUSHKA CORDERO Unavailable SUKHDEV, CHAOHUA Unavailable ANUSHKA CORDERO Unavailable SUKHDEV, CHAOHUA Unavailable ANUSHKA CORDERO Unavailable SUKHDEV, CHAOHUA Unavailable ANUSHKA CORDERO Unavailable SUKHDEV, CHAOHUA Unavailable ANUSHKA CORDERO Unavailable PAOLONE, VINCENT Unavailable PAOLONE, VINCENT Unavailable ANUSHKA CORDERO Unavailable LILLIAM SANTIZO Attending Provider SUKHDEV, CHAOHUA Admitting Physician ANUSHKA CORDERO Primary Care Provider ANUSHKA CORDERO Primary Care Provider No, Physician Primary Care Provider Unavailabl e MALCOM GARCIA Attending Un available MALCOM GARCIA Admitting Un available CRISTY, PHYSICIAN Primary Care Unavailable James Sahu Unavailable [phone] Unavailable Unavailable Unavailable Unavailable Adelina, Dr. Rizo Primary Care Unavailabl e Jazmín, Dr. Ajit Norman Referring Unavaila ble Jazmín, Dr. Ajit Norman Attending Unavaila ble Jazmín, Dr. Ajit Norman Admitting Unavaila ble Unavailable Unavailable Lilliam Santizo Attending Unavailable Young, Ms. Emilie Kilpatrick Referring Unavailabl e Oberhauser, Dr. James Ervin Primary Care Unava ilable Young, Ms. Emilie Kilpatrick Attending Unavailabl e Young, Ms. Staci Referring Unavailabl e Oberhauser, Dr. James Ervin Primary Care Unava ilable Young, Ms. Staci Attending Unavailabl e Young, Ms. Staci Referring Unavailabl e Oberhauser, Dr. James Ervin Primary Care Unava ilable Young, Ms. Emilie Kilpatrick Attending Unavailabl e Oberevan, Dr. James Ervin Primary Care Unava ilable Oberhauser, Dr. James Ervin Attending Unava ilable Oberhauser, Dr. James Ervin Referring Unava ilable Oberhauser, Dr. James Ervin Primary Care Unava ilable Oberhauser, Dr. James Ervin Attending Unava ilable Oberhauser, Dr. James Ervin Referring Unava ilable Oberhauser, Dr. James Ervin Attending Unava ilable Oberhauser, Dr. James Ervin Referring Unava ilable Oberhauser, Dr. Jaems Ervin Primary Care Unava ilable Oberhauser, Dr. James Ervin Primary Care Unava ilable Oberhauser, Dr. James Ervin Attending Unava ilable Oberhauser, Dr. James Ervin Referring Unava ilable Oberhauser, Dr. James Ervin Primary Care Unava ilable Reynaldo, Dr. Tom Cummings Referring Unavail able Young, Ms. Emilie Kilpatrick Attending Unavailabl e Oberhauser DO, James L Primary Care Provider Oberhauser DO, James L Unavailable Oberhauser DO, James L Primary Care Provider Oberhauser DO, James L Unavailable Oberhauser, James L Primary Care Provider Unavai lable Oberhauser, James L Unavailable Unavailable Young VINYL 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, DNP, Emilie M Unavailable Cruz VINYL 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, Suzanne B Primary Care Provider OBERHAUSER, JAMES L Primary Care Unavailable CRUZ, SUZANNE B Referring Unavailable CRUZ, SUZANNE B Primary Care Unavailable Young VINYL 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, GAMAL, Emilie M Unavailable Cruz VINYL 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, Suzanne B Primary Care Provider LYNN KOCH Attending Unavailable CRUZ, SUZANNE B Primary Care Unavailable CRUZ, SUZANNE B Attending Unavailable CRUZ, SUZANNE B Primary Care Unavailable EMILIE CORNELIUS Attending Unavailable OBERHAUSER, JAMES L Primary Care Unavailable CRUZ, SUZANNE B Attending Unavailable OBERHAUSER, JAMES L Primary Care Unavailable CRUZ, SUZANNE B Referring Unavailable CRUZ, SUZANNE B Referring Unavailable OBERHAUSER, JAMES L Primary Care Unavailable CRUZ, SUZANNE B Primary Care Unavailable BREN KOWALSKI Attending Unavailable OBERHAUSER, JAMES L Primary Care Unavailable ODELL MOCK Attending Unavailable Demario Reyes Attending Unavailable SeeseDemario Attending Unavailable Cruz, Suzanne Primary Care Unavailable Cruz, Suzanne Referring Unavailable SeeDemario harris L Attending Unavailable SeeseDemario L Attending Unavailable Cruz, Suzanne Primary Care Unavailable Yair Benedict Attending Unavailable Yair Benedict Referring Unavailable Yair Benedict Admitting Unavailable Kentrell Galindo Consulting Unavailable Cruz, Suzanne Primary Care Unavailable Benedict, Yair Attending Unavailable Benedict, Yair Referring Unavailable Cruz, Suzanne Primary Care Unavailable ClaudiaCeciliayn Attending Unavailable Benedict, Yair Admitting Unavailable Benedict, Yair Referring Unavailable Kotsonis, Kentrell F Consulting Unavailable Benedict, Yair Consulting Unavailable Kotsonis, Kentrell F Attending Unavailable Cruz, Suzanne Primary Care Unavailable Benedict, Yair Consulting Unavailable Kotsonis, Kentrell F Attending Unavailable Servando To Admitting Unavailable Servando To Consulting Unavailable Kd Bowens Consulting Unavailable Bebetoam, Tran Vanessa Consulting Unavailable Kotsonis, Kentrell F Consulting Unavailable SeeDemario harris Attending Unavailable Cruz, Suzanne Primary Care Unavailable Cruz, Suzanne Referring Unavailable Benedict, Yair Attending Unavailable Cruz, Suzanne Primary Care Unavailable Cruz, Suzanne Referring Unavailable Benedict, Yair Attending Unavailable Cruz, Suzanne Primary Care Unavailable Cruz, Uszanne Referring Unavailable SeeseDemario L Attending Unavailable Cruz, Suzanne Primary Care Unavailable Cruz, Suzanne Referring Unavailable Benedict, Yair Attending Unavailable Cruz, Suzanne Primary Care Unavailable Prayson, Kentrell Referring Unavailable Prayson, Kentrell Attending Unavailable Cruz, Suzanne Primary Care Unavailable Benedict, Yair Attending Unavailable Benedict, Yair Referring Unavailable Cruz, Suzanne Primary Care Unavailable Matias Serna Attending Unavailable SeeseDemario L Attending Unavailable KoramSola Vanessa Attending Unavailable Cruz, Suzanne Primary Care Unavailable Benedict, Yair Attending Unavailable Benedict, Yair Referring Unavailable Cruz, Suzanne Primary Care Unavailable Prayson, Kentrell Referring Unavailable Prayson, Kentrell Attending Unavailable Cecilia Tayloryn Attending Unavailable Benedict, Yair Attending Unavailable Servando To Attending Unavailable Cruz, Suzanne Primary Care Unavailable Olayinka Becker Consulting Unavailable Olayinka Becker Attending Unavailable Cruz, Suzanne Primary Care Unavailable Benedict, Yair Attending Unavailable Benedict, Yair Consulting Unavailable Benedict, Yair Referring Unavailable Allergies Allergy Classification Reported Allergen(s) Allergy Type Date of Onset Reaction(s) Facility (19 sources) Sulfonamides (Antibiotic); 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: [SULFA (SULFONAMIDE ANTIBIOTICS)] Propensity to adverse reactions to drug 5 Unknown [facility] (20 sources) Azithromycin; 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: [azithromycin] Drug Allergy 3 Unknown [facility] (20 sources) Sulfonamides (Antibiotic); 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: [Sulfa Antibiotics] Allergy to drug (finding) [facility] Work Phone: (2 sources) Azithromycin Drug Allergy 8 [facility] [place] Rep[place] (1 source) valsartan Drug Allergy 8 [facility] [place] (1 source) wool Drug allergy (disorder) 8 [facility] [place] Rep[place] Medications Current Medications Medication Drug Class(es) [...] MEALS. Quantity: 60 Refills: 5 Ordered: 14-Jul-2022 Reynaldo DNP, VINYL 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, Emilie Start : 21-Nov-2020 Active Start: 11-21-2020 take 1 tablet by jacques th once daily Carvedilol 3.125 MG Oral Tablet TAKE 1 TABLET BY MOUTH EVERY DAY Quantity: 90 Refills: 3 Ordered: 10-Sep-2021 Adelina DOJames Start : 21-Nov-2020 Active Start: 08-21-2020 carvediloL [...] Start: 09-10-2021 take 1 capsule by mo [facility] once daily D3-50 1.25 MG (63892 UT) Oral Capsule TAKE 1 CAPSULE ONCE DAILY Quantity: 0 Refills: 0 Ordered: 10-Sep-2021 Adelina COELHO James Start : 10-Sep-2021 Active take 1 tablet by jacques twice daily cholecalciferol (Vitamin D-3) 50 MCG (1999 UT) tablet Take 1 tablet (50 mcg) by mouth 2 times a day. Active take 1 tablet by jacques twice daily cholecalciferol (Vitamin D-3) 50 MCG [...] Start: 12-05-2021 take 2 tablets by mo uth twice daily metFORMIN HCl ER (OSM) 500 [...] take 1 tablet by jacques th once in the morning multivit-min/iron/folic/lutein (CENTRUM SILVER [...] 06-23-2023 take 1 tablet by jacques th once daily NIFEdipine ER (NIFEdipine CC) 90 [...] Refills: 3 Ordered: 13-Jun-2022 LUCÍA Cornelius DNP, Lisa Start : 10-Jun-2022 Active Start: 05-23-2022 take 2 tablets by mo uth once daily NIFEdipine ER 30 MG Oral Tablet Extended Release 24 Hour TAKE 2 TABLET Daily Quantity: 180 Refills: 3 Ordered: 10-Jun-2022 LUCÍA Cornelius DNP, Lisa Start : 23-May-2022 Active Start: 05-23-2022 take 1 tablet by jacques th once daily NIFEdipine ER 30 MG Oral Tablet Extended Release 24 Hour TAKE 1 TABLET DAILY. Quantity: 30 Refills: 6 Ordered: 23-May-2022 LUCÍA Cornelius DNP, Lisa Start : 23-May-2022 Active omega-3 acid ethyl esters (snf) 1000 mg oral capsule (3 sources) omega-3 [...] adelaide amanda 500 mL Start: 10-23-2020 End: 03-16-2021 sodium chloride (PF) (NS) fl [facility] 5 mL 1 ml triamcinolone acetonide 40 [...] James Sahu DO Start : 21-Aug-2022 Active valsartan 160 mg oral tablet (2 [...] completed) Start: 05-23-2020 take 1 capsule by mo ut every twenty-four hours Venlafaxine HCl ER 75 MG Oral Capsule Extended Release 24 Hour Quantity: 90 Refills: 0 Ordered: 19-Feb-2021 DO Start : 23-May-2020 Complete take 1 capsule by mo uth twice daily venlafaxine XR (Effexor-XR) 150 mg 24 hr capsule Take 1 capsule (150 mg) by mouth 2 times a day. Active take 1 capsule by mo uth every twenty-four hours in the morning venlafaxine [...] Drug Class(es) Dates Sig (Normalized) Sig (Original) [id number] 200 actuat albuterol 0.09 mg/actuat metered dose [...] take 1 capsule by mo [facility] once daily at bedtime doxepin (SINEquan) 10 [...] Start: 12-03-2021 take 1 tablet by jacques th once daily Jardiance 25 MG Oral Tablet [...] times a day before meals. 60 tablet 03/01/2024 06/23/2024 Discontinued (Therapy completed) hydroCHLOROthiazide 25 [...] Start: 05-19-2022 take 1 tablet by jacques th once daily Januvia 100 MG Oral Tablet [...] (13 sources) take 2 tablets by mo uth once daily Turmeric 500 MG Oral Tablet [...] take 2 tablets by mouth in the m orning turmeric root extract 500 mg tablet Take 2 tablets by mouth in the morning. Active take 2 tablets by mouth in the m orning turmeric root extract 500 mg tablet Take 2 tablets by mouth in the morning. 0 Active vitamin a 2.4 mg oral capsule (8 sources) Vitamin A Start: 09-10-2021 Vitamin A 2400 MCG (8000 UT) Oral Capsule TAKE DIRECTED. Quantity: 0 Refills: 0 Ordered: 10-Sep-2021 James Sahu DO Start : 10-Sep-2021 Active vitamin e 180 mg oral capsule (8 sources) Start: 09-10-2021 Vitamin E 180 MG (400 UNIT) Oral Capsule Quantity: 0 Refills: 0 Ordered: 10-Sep-2021 James Shau DO Start : 10-Sep-2021 Active Zinc (11 sources) Zinc CAPS Quanti ty: 0 Refills: 0 Ordered: 23-May-2022 DO Active Problems Active Problems Problem Classification Problem Date Documented Da te Episodic/Chronic Abdominal pain (4 sources) Epigastric pain; 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: [Periumbilical pain] Onset: 2 06-16-2025 Episodic Anxiety disorders (2 sources) Post-traumatic stress disorder, unspecified; 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: [Post-traumatic stress [...] 3 04-15-2023 Chronic Other aftercare (1 source) long-term (current) use of oral hypoglycemic drugs; 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: [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 drugs] Onset: 2 Episodic Other aftercare (1 source) long-term (current) use of aspirin; 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: [tours hostess (current) use of aspirin] Onset: 2 Episodic [...] 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: [Arthrodesis status] Onset: 5 Episodic Other connective tissue disease (1 source) Psoas muscle abscess; 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: [Psoas muscle abscess] Onset: 5 Episodic Other ear and sense [...] Chronic Other nutritional; endocrine; and metabolic disorders (1 source) Obesity, unspecified; 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: [Obesity, unspecified] Onset: 5 Chronic Other nutritional; endocrine; and metabolic disorders [...] Spondylosis; intervertebral disc disorders; other back problems (11 sources) Acute low back pain; 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: [Acute [...] unspecified; 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: [Low back pain, unspecified] Onset: 5 Urinary tract infections (9 sources) Urinary tract infection, site not specified; 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: [Urinary tract infectious disease] Onset: 2 06-17-2024 Episodic Past or Other Problems Problem [...] Test Name Value Interpretation Reference Range Facility Basic Metabolic Profile (BMP )on 06-22-2025 BUN/CRE 18.8 RATIO Normal 10-20 [facility] Comment on above: Performed By: #### L 100.0100, L500.2500 ####[facility] [address] [place], [address] Calcium [Mass/Vol] 9.2 mg/dL Normal 7.6-11.0 [facility] Comment on above: Performed By: #### L 100.0100, L500.2500 ####[facility] [address] [place], [address] Chloride [Moles/Vol] 93 mmol/L Low 98-108 [facility] Comment on above: Performed By: #### L 100.0100, L500.2500 ####[facility] [address] [place], [address] CO2 [Moles/Vol] 23.5 mmol/L Normal 21.0-32.0 [facility] Comment on above: Performed By: #### L 100.0100, L500.2500 ####[facility] [address] [place], [address] Creatinine [Mass/Vol] 0.46 mg/dL Low 0.70-1.20 [facility] Comment on above: Performed By: #### L 100.0100, L500.2500 ####[facility] [address] [place], [address] ECRCL 166.67 ml/min Normal 50-250 [facility] Comment on above: Performed By: #### L 100.0100, L500.2500 ####[facility] [address] [place], [address] GAP 10 Normal 5-15 [facility] Comment on above: Performed By: #### L 100.0100, L500.2500 ####[facility] [address] [place], [address] GFR/1.73 sq M.predicted among non-blacks MDRD (S/P/Bld) [Vol rate/Area] 112 mL/min/{1.73_m2} Normal >60 [facility] Comment on above: Result Comment: mL/m in/1.73m2 CKD-EPI Creatinine Equation (2020) Performed By: #### L 100.0100, L500.2500 ####[facility] [address] [place], [address] Glucose [Mass/Vol] 173 mg/dL High 70-99 [facility] Comment on above: Performed By: #### L 100.0100, L500.2500 ####[facility] [address] [place], [address] Potassium [Moles/Vol] 4.4 mmol/L Normal 3.3-5.1 [facility] Comment on above: Performed By: #### L 100.0100, L500.2500 ####[facility] [address] [place], [address] Sodium [Moles/Vol] 127 mmol/L Low 133-145 [facility] Comment on above: Performed By: #### L 100.0100, L500.2500 ####[facility] [address] [place], [address] Urea nitrogen [Mass/Vol] 9 mg/dL Normal 4-19 [facility] Comment on above: Performed By: #### L 100.0100, L500.2500 ####[facility] [address] [place], [address] CBC W/Diff, Automatedon 06-10 Absolute Lymph 1.89 X10 3/uL Normal 0.83-4.51 [facility] Comment on above: Performed By: #### L 100.0100, L500.2500 ####[facility] [address] [place], [address] Absolute Neut 4.1 X10 3/uL Normal 2.0-7.7 [facility] Comment on above: Performed By: #### L 100.0100, L500.2500 ####[facility] [address] [place], [address] Basophils/100 WBC (Bld) 0.9 % Normal 0-1 [facility] Comment on above: Performed By: #### L 100.0100, L500.2500 ####[facility] [address] [place], [address] Eosinophils/100 WBC (Bld) 3.0 % Normal 0-5 [facility] Comment on above: Performed By: #### L 100.0100, L500.2500 ####[facility] [address] [place], [address] Erythrocyte distribution width (RBC) [Ratio] 11.9 % Normal 11.6-14.6 [facility] Comment on above: Performed By: #### L 100.0100, L500.2500 ####[facility] [address] [place], [address] Hematocrit (Bld) [Volume fraction] 31.8 % Low 37-47 [facility] Comment on above: Performed By: #### L 100.0100, L500.2500 ####[facility] [address] [place], [address] Hemoglobin (Bld) [Mass/Vol] 10.9 g/dL Low 12.0-15.0 [facility] Comment on above: Performed By: #### L 100.0100, L500.2500 ####[facility] [address] [place], [address] IG% 0.900 Normal 0.0-0.9 [facility] Comment on above: Result Comment: IG% - Immature Granulocytes (promyelocytes, myelocytes and metamyelocytes) > 1% indicates that a LEFT SHIFT is Present. Performed By: #### L 100.0100, L500.2500 ####[facility] [address] [place], [address] Lymphocytes/100 WBC (Bld) 27.1 % Normal 19-41 [facility] Comment on above: Performed By: #### L 100.0100, L500.2500 ####[facility] [address] [place], [address] MCH (RBC) [Entitic mass] 30.0 pg Normal 27.0-32.0 [facility] Comment on above: Performed By: #### L 100.0100, L500.2500 ####[facility] [address] [place], [address] MCHC (RBC) [Mass/Vol] 34.3 g/dL Normal 32-36 [facility] Comment on above: Performed By: #### L 100.0100, L500.2500 ####[facility] [address] [place], [address] MCV (RBC) [Entitic vol] 87.6 fL Normal 81-99 [facility] Comment on above: Performed By: #### L 100.0100, L500.2500 ####[facility] [address] [place], [address] Monocytes/100 WBC (Bld) 9.6 % Normal 0-10 [facility] Comment on above: Performed By: #### L 100.0100, L500.2500 ####[facility] [address] [place], [address] Neutrophils/100 WBC (Bld) 58.5 % Normal 47-70 [facility] Comment on above: Performed By: #### L 100.0100, L500.2500 ####[facility] [address] [place], [address] Nucleated RBC (Bld) [#/Vol] 0 10*3/uL Normal 0-5 [facility] Comment on above: Performed By: #### L 100.0100, L500.2500 ####[facility] [address] [place], [address] Platelet mean volume (Bld) [Entitic vol] 8.4 fL Normal 6.2-12.0 [facility] Comment on above: Performed By: #### L 100.0100, L500.2500 ####[facility] [address] [place], [address] Platelets (Bld) [#/Vol] 348 10*3/uL Normal 150-450 [facility] Comment on above: Performed By: #### L 100.0100, L500.2500 ####[facility] [address] [place], [address] RBC (Bld) [#/Vol] 3.63 10*6/uL Low 4.2-5.4 [facility] Comment on above: Performed By: #### L 100.0100, L500.2500 ####[facility] [address] [place], [address] RDW SD 38.5 fl Normal 35.1-43.9 [facility] Comment on above: Performed By: #### L 100.0100, L500.2500 ####[facility] [address] [place], [address] WBC (Bld) [#/Vol] 7.0 10*3/uL Normal 4.4-11.0 [facility] Comment on above: Performed By: #### L 100.0100, L500.2500 ####[facility] [address] [place], [address] Culture, Blood (WB)on 2024 CUB Blood cultures x2, f rom two different sites No growth in 48 hours. Normal [facility] Comment on above: Performed By: #### L 503.6005, M200.1000 #### [facility] [address] [place], [address] Basic Metabolic Profile (BMP )on 06-21-2025 BUN/CRE 20.5 RATIO High 10-20 [facility] Comment on above: Performed By: #### L 100.0100, L500.2500 ####[facility] [address] [place], [address] Calcium [Mass/Vol] 9.2 mg/dL Normal 7.6-11.0 [facility] Comment on above: Performed By: #### L 100.0100, L500.2500 ####[facility] [address] [place], [address] Chloride [Moles/Vol] 93 mmol/L Low 98-108 [facility] Comment on above: Performed By: #### L 100.0100, L500.2500 ####[facility] [address] [place], [address] CO2 [Moles/Vol] 25.1 mmol/L Normal 21.0-32.0 [facility] Comment on above: Performed By: #### L 100.0100, L500.2500 ####[facility] [address] [place], [address] Creatinine [Mass/Vol] 0.48 mg/dL Low 0.70-1.20 [facility] Comment on above: Performed By: #### L 100.0100, L500.2500 ####[facility] [address] [place], [address] ECRCL 159.72 ml/min Normal 50-250 [facility] Comment on above: Performed By: #### L 100.0100, L500.2500 ####[facility] [address] [place], [address] GAP 11 Normal 5-15 [facility] Comment on above: Performed By: #### L 100.0100, L500.2500 ####[facility] [address] [place], [address] GFR/1.73 sq M.predicted among non-blacks MDRD (S/P/Bld) [Vol rate/Area] 111 mL/min/{1.73_m2} Normal >60 [facility] Comment on above: Result Comment: mL/m in/1.73m2 CKD-EPI Creatinine Equation (2020) Performed By: #### L 100.0100, L500.2500 ####[facility] [address] [place], [address] Glucose [Mass/Vol] 159 mg/dL High 70-99 [facility] Comment on above: Performed By: #### L 100.0100, L500.2500 ####[facility] [address] [place], [address] Potassium [Moles/Vol] 4.5 mmol/L Normal 3.3-5.1 [facility] Comment on above: Performed By: #### L 100.0100, L500.2500 ####[facility] [address] [place], [address] Sodium [Moles/Vol] 129 mmol/L Low 133-145 [facility] Comment on above: Performed By: #### L 100.0100, L500.2500 ####[facility] [address] [place], [address] Urea nitrogen [Mass/Vol] 10 mg/dL Normal 4-19 [facility] Comment on above: Performed By: #### L 100.0100, L500.2500 ####[facility] [address] [place], [address] CBC W/Diff, Automatedon 11-1 Absolute Lymph 1.91 X10 3/uL Normal 0.83-4.51 [facility] Comment on above: Performed By: #### L 100.0100, L500.2500 ####[facility] [address] [place], [address] Absolute Neut 3.5 X10 3/uL Normal 2.0-7.7 [facility] Comment on above: Performed By: #### L 100.0100, L500.2500 ####[facility] [address] [place], [address] Basophils/100 WBC (Bld) 0.6 % Normal 0-1 [facility] Comment on above: Performed By: #### L 100.0100, L500.2500 ####[facility] [address] [place], [address] Eosinophils/100 WBC (Bld) 3.0 % Normal 0-5 [facility] Comment on above: Performed By: #### L 100.0100, L500.2500 ####[facility] [address] [place], [address] Erythrocyte distribution width (RBC) [Ratio] 12.2 % Normal 11.6-14.6 [facility] Comment on above: Performed By: #### L 100.0100, L500.2500 ####[facility] [address] [place], [address] Hematocrit (Bld) [Volume fraction] 30.8 % Low 37-47 [facility] Comment on above: Performed By: #### L 100.0100, L500.2500 ####[facility] [address] [place], [address] Hemoglobin (Bld) [Mass/Vol] 11.1 g/dL Low 12.0-15.0 [facility] Comment on above: Performed By: #### L 100.0100, L500.2500 ####[facility] [address] [place], [address] IG% 0.800 Normal 0.0-0.9 [facility] Comment on above: Result Comment: IG% - Immature Granulocytes (promyelocytes, myelocytes and metamyelocytes) > 1% indicates that a LEFT SHIFT is Present. Performed By: #### L 100.0100, L500.2500 ####[facility] [address] [place], [address] Lymphocytes/100 WBC (Bld) 30.2 % Normal 19-41 [facility] Comment on above: Performed By: #### L 100.0100, L500.2500 ####[facility] [address] [place], [address] MCH (RBC) [Entitic mass] 30.9 pg Normal 27.0-32.0 [facility] Comment on above: Performed By: #### L 100.0100, L500.2500 ####[facility] [address] [place], [address] MCHC (RBC) [Mass/Vol] 36.0 g/dL Normal 32-36 [facility] Comment on above: Performed By: #### L 100.0100, L500.2500 ####[facility] [address] [place], [address] MCV (RBC) [Entitic vol] 85.8 fL Normal 81-99 [facility] Comment on above: Performed By: #### L 100.0100, L500.2500 ####[facility] [address] [place], [address] Monocytes/100 WBC (Bld) 10.1 % High 0-10 [facility] Comment on above: Performed By: #### L 100.0100, L500.2500 ####[facility] [address] [place], [address] Neutrophils/100 WBC (Bld) 55.3 % Normal 47-70 [facility] Comment on above: Performed By: #### L 100.0100, L500.2500 ####[facility] [address] [place], [address] Nucleated RBC (Bld) [#/Vol] 0 10*3/uL Normal 0-5 [facility] Comment on above: Performed By: #### L 100.0100, L500.2500 ####[facility] [address] [place], [address] Platelet mean volume (Bld) [Entitic vol] 8.4 fL Normal 6.2-12.0 [facility] Comment on above: Performed By: #### L 100.0100, L500.2500 ####[facility] [address] [place], [address] Platelets (Bld) [#/Vol] 323 10*3/uL Normal 150-450 [facility] Comment on above: Performed By: #### L 100.0100, L500.2500 ####[facility] [address] [place], [address] RBC (Bld) [#/Vol] 3.59 10*6/uL Low 4.2-5.4 [facility] Comment on above: Performed By: #### L 100.0100, L500.2500 ####[facility] [address] [place], [address] RDW SD 37.9 fl Normal 35.1-43.9 [facility] Comment on above: Performed By: #### L 100.0100, L500.2500 ####[facility] [address] [place], [address] WBC (Bld) [#/Vol] 6.3 10*3/uL Normal 4.4-11.0 [facility] Comment on above: Performed By: #### L 100.0100, L500.2500 ####[facility] [address] [place], [address] Consultation - Infectious Dx on 06-21-2025 Consultation - Infectious Dx [facility] Medical Records Department [address] [place] [address] Consultation - Infectious Dx 06/21/25 1357 MR#: [id number] Acct: [id number] Name: REINIER MENDOZA Rep #: [id number] : 1970 55 From: Kd Bowens MD PCP: Suzanne Arroyo, DIRECTOR HEDIS-C Status:ADM IN Location: [facility] [id number] Assessment Plan Assessment/Plan (1) Psoas abscess, right: PLAN: Presenting with back pain s/p 06/12/25 L2-4 oblique interbody fusion with anterior instrumentation by Dr. Benedict. L sided incision healing well. No fever, normal wbc. Had been on started on keflex recently by [facility]. On empiric vanc/ceftriaxone. If condition worsens, would change ceftriaxone to cefepime for more nosocomial coverage. CT with suspected two psoas abscesses seen. Recommend IR aspiration and culture if possible. Cont abx for now. Will follow, thank you, d/w Dr. Morgan (2) Back pain: (3) Status post lumbar spinal fusion: HPI Consult Data Date of Consult: 06/21/25 HPI Narrative Reason for Consultation: abscess HPI Narrative: REINIER MENDOZA, is a 55 F who presents with back pain s/p 06/12/25 L2-4 oblique interbody fusion with anterior instrumentation. Had several days progressive R flank pain. Went to [facility] ED, dx with uti, denies any dysuria. Some difficulty urinating. Sent home with a po keflex course. Came to ED here, CT done, admitted on vanc/ceftriaxone, seen by Dr. Benedict. Pain slightly better today. Some chills. Full ROS performed and neg except as noted above. [facility] Medical History Migraines Lumbar stenosis with neurogenic claudication Obesity (BMI [...] Medications ???Medication ???Instructions ???Recorded ???Last Taken ???Type multivitamin 1 tab PO DAILY SUPPLEMENT 09/22/22 06/10/25 History aspirin 81 mg tablet 81 mg PO DAILY HEART HEALTH 06/19/25 History magnesium 250 mg tablet 500 mg PO QHS CRAMPS 11/20/2309/03 History turmeric root extract 500 mg 1,000 mg PO BID SUPPLEMENT 4 06/10/25 History capsule metformin 500 mg tablet,extended 1,000 mg PO BID DIABETES 12/17/23 06/19/25 History release 24 hr bupropion HCl 300 mg 24 hr tablet, 300 mg PO QAM PTSD 30 days #30 t abs 05/23/25 06/19/25 Rx extended release venlafaxine 150 mg 150 mg PO DAILY BIPOLAR 30 days 06/18/25 Rx capsule,extended release 24 hr #30 caps aripiprazole 15 mg tablet 15 mg PO QHS BIPOLAR 05/26/2505/04 History omega 1-esc-hdz-fish oil 1,200 mg 2 cap PO DAILY SUPPLEMENT 5 06/10/25 History (144 mg-216 mg) capsule (Fish Oil) pioglitazone 30 mg tablet 30 mg PO QHS DIABETES 05/26/2505/04 History vitamin D3 125 mcg (5,000 1 cap PO DAILY SUPPLEMENT 05/26/25 06/10/25 History unit)-vitamin K2 100 mcg capsule acetaminophen 500 mg tablet 1,000 mg (2 x 500 mg) PO Q6H #30 1 08/13/24 06/19/25 Rx tabs meloxicam 15 mg tablet 15 mg PO DAILY #30 tabs 06/13/25 1 08/18/24 Rx methocarbamol 500 mg tablet 750 mg (1.5 x 500 mg) PO TID PRN 1 08/13/24 06/19/25 Rx Pain/spasms #30 tabs oxycodone 5 mg tablet 2.5 - 5 mg (0.5 - 1 x 5 mg) PO Q6H 06/13/25 06/19/25 Rx PRN pain 7 days #28 tabs carbamazepine 200 mg tablet 400 mg PO BID BIPOLAR 06/19/2506/03 History carvedilol 12.5 mg tablet 12.5 mg PO BID 06/19/25 06/19/25 H istory cephalexin 500 mg capsule 500 mg PO 4X/DAY 06/19/25 06/19/25 History ketorolac 10 mg tablet 10 mg PO Q6H PRN PRN pain 06/19/25 06/19/25 History melatonin 5 mg capsule 5 mg PO QHS PRN 06/19/25 06/18/25 History nifedipine 90 mg tablet,extended 90 mg PO DAILY 06/19/25 06/19/25 H istory release valsartan 160 mg tablet 160 mg PO DAILY 06/19/25 06/19/25 History Allergy/AdvReac Type Severity Reaction Status Date / Time azithromycin Allergy Mild Hives Verified 06/19/25 11:51 Sulfa (Sulfonamide Allergy Mild Other Verified 06/19/25 11:51 Antibiotics) Family History Other Alcoholism Anxiety Arthritis defect Breast cancer CVA (cerebral vascular accident) Cancer Depression Diabetes Hypertension Mental disorder Myocardial infarction Suicide attempt S (more content not included)... Normal [facility] Vancomycin, Trough Levelon 08-21-2024 VANCO, TROUGH 11.0 ug/mL Normal 5.0-15.0 [facility] Comment on above: Order Comment: 0900 Result Comment: Tommy mmended goal trough ranges are generally 10-15 mcg/ml for less severe/complicated infections such as cellulitis or UTI and 15-20 mcg/ml for more severe/complicated infections such as bacteremia/sepsis, osteomyelitis, pneumonia or meningitis. Goal trough ranges should take into account indication, patient-specific factors and organism TIEN. VANCOMYCIN STANDARED DRUG THERAPY TROUGH LEVEL: 5.0 - 15.0 mg/L VANCOMYCIN HIGH INTENSITY THERAPY TROUGH LEVEL: 15.0 - 20.0 mg/L High Intensity therapy recommended for serious life threatening infections include: - Meningitis -Endocarditis -Pneumonia (Ventilator/Healtcare Associated) -Sepsis PLEASE CONTACT PHARMACY SERVICES (#[id number]) FOR INTERPRETATION OF RESULTS. Performed By: #### L 259.2498, M200.1000 #### [facility] [address] [place], [address] Basic Metabolic Profile (BMP )on 06-20-2025 BUN/CRE 25.0 RATIO High 10-20 [facility] Comment on above: Performed By: #### L 500.2500, L100.0100 ####[facility] [address] [place], [address] Calcium [Mass/Vol] 9.2 mg/dL Normal 7.6-11.0 [facility] Comment on above: Performed By: #### L 500.2500, L100.0100 ####[facility] [address] [place], [address] Chloride [Moles/Vol] 91 mmol/L Low 98-108 [facility] Comment on above: Performed By: #### L 500.2500, L100.0100 ####[facility] [address] [place], [address] CO2 [Moles/Vol] 24.1 mmol/L Normal 21.0-32.0 [facility] Comment on above: Performed By: #### L 500.2500, L100.0100 ####[facility] [address] [place], [address] Creatinine [Mass/Vol] 0.51 mg/dL Low 0.70-1.20 [facility] Comment on above: Performed By: #### L 500.2500, L100.0100 ####[facility] [address] [place], [address] ECRCL 150.33 ml/min Normal 50-250 [facility] Comment on above: Performed By: #### L 500.2500, L100.0100 ####[facility] [address] [place], [address] GAP 12 Normal 5-15 [facility] Comment on above: Performed By: #### L 500.2500, L100.0100 ####[facility] [address] [place], [address] GFR/1.73 sq M.predicted among non-blacks MDRD (S/P/Bld) [Vol rate/Area] 110 mL/min/{1.73_m2} Normal >60 [facility] Comment on above: Result Comment: mL/m in/1.73m2 CKD-EPI Creatinine Equation (2020) Performed By: #### L 500.2500, L100.0100 ####[facility] [address] [place], [address] Glucose [Mass/Vol] 172 mg/dL High 70-99 [facility] Comment on above: Performed By: #### L 500.2500, L100.0100 ####[facility] [address] [place], [address] Potassium [Moles/Vol] 4.5 mmol/L Normal 3.3-5.1 [facility] Comment on above: Performed By: #### L 500.2500, L100.0100 ####[facility] [address] [place], [address] Sodium [Moles/Vol] 127 mmol/L Low 133-145 [facility] Comment on above: Performed By: #### L 500.2500, L100.0100 ####[facility] [address] [place], [address] Urea nitrogen [Mass/Vol] 13 mg/dL Normal 4-19 [facility] Comment on above: Performed By: #### L 500.2500, L100.0100 ####[facility] [address] [place], [address] CBC W/Diff, Automatedon 11- Absolute Lymph 1.66 X10 3/uL Normal 0.83-4.51 [facility] Comment on above: Performed By: #### L 500.2500, L100.0100 ####[facility] [address] [place], [address] Absolute Neut 5.2 X10 3/uL Normal 2.0-7.7 [facility] Comment on above: Performed By: #### L 500.2500, L100.0100 ####[facility] [address] [place], [address] Basophils/100 WBC (Bld) 0.4 % Normal 0-1 [facility] Comment on above: Performed By: #### L 500.2500, L100.0100 ####[facility] [address] [place], [address] Eosinophils/100 WBC (Bld) 2.2 % Normal 0-5 [facility] Comment on above: Performed By: #### L 500.2500, L100.0100 ####[facility] [address] [place], [address] Erythrocyte distribution width (RBC) [Ratio] 12.2 % Normal 11.6-14.6 [facility] Comment on above: Performed By: #### L 500.2500, L100.0100 ####[facility] [address] [place], [address] Hematocrit (Bld) [Volume fraction] 30.9 % Low 37-47 [facility] Comment on above: Performed By: #### L 500.2500, L100.0100 ####[facility] [address] [place], [address] Hemoglobin (Bld) [Mass/Vol] 11.0 g/dL Low 12.0-15.0 [facility] Comment on above: Performed By: #### L 500.2500, L100.0100 ####[facility] [address] [place], [address] IG% 0.800 Normal 0.0-0.9 [facility] Comment on above: Result Comment: IG% - Immature Granulocytes (promyelocytes, myelocytes and metamyelocytes) > 1% indicates that a LEFT SHIFT is Present. Performed By: #### L 500.2500, L100.0100 ####[facility] [address] [place], [address] Lymphocytes/100 WBC (Bld) 21.1 % Normal 19-41 [facility] Comment on above: Performed By: #### L 500.2500, L100.0100 ####[facility] [address] [place], [address] MCH (RBC) [Entitic mass] 30.4 pg Normal 27.0-32.0 [facility] Comment on above: Performed By: #### L 500.2500, L100.0100 ####[facility] [address] [place], [address] MCHC (RBC) [Mass/Vol] 35.6 g/dL Normal 32-36 [facility] Comment on above: Performed By: #### L 500.2500, L100.0100 ####[facility] [address] [place], [address] MCV (RBC) [Entitic vol] 85.4 fL Normal 81-99 [facility] Comment on above: Performed By: #### L 500.2500, L100.0100 ####[facility] [address] [place], [address] Monocytes/100 WBC (Bld) 9.9 % Normal 0-10 [facility] Comment on above: Performed By: #### L 500.2500, L100.0100 ####[facility] [address] [place], [address] Neutrophils/100 WBC (Bld) 65.6 % Normal 47-70 [facility] Comment on above: Performed By: #### L 500.2500, L100.0100 ####[facility] [address] [place], [address] Nucleated RBC (Bld) [#/Vol] 0 10*3/uL Normal 0-5 [facility] Comment on above: Performed By: #### L 500.2500, L100.0100 ####[facility] [address] [place], [address] Platelet mean volume (Bld) [Entitic vol] 8.6 fL Normal 6.2-12.0 [facility] Comment on above: Performed By: #### L 500.2500, L100.0100 ####[facility] [address] [place], [address] Platelets (Bld) [#/Vol] 332 10*3/uL Normal 150-450 [facility] Comment on above: Performed By: #### L 500.2500, L100.0100 ####[facility] [address] [place], [address] RBC (Bld) [#/Vol] 3.62 10*6/uL Low 4.2-5.4 [facility] Comment on above: Performed By: #### L 500.2500, L100.0100 ####[facility] [address] [place], [address] RDW SD 37.9 fl Normal 35.1-43.9 [facility] Comment on above: Performed By: #### L 500.2500, L100.0100 ####[facility] [address] [place], [address] WBC (Bld) [#/Vol] 7.9 10*3/uL Normal 4.4-11.0 [facility] Comment on above: Performed By: #### L 500.2500, L100.0100 ####[facility] [address] [place], [address] CRPon 06-20-2025 C-REACTIVE PROT 62.50 mg/L High 0.0-3.0 [facility] Comment on above: Performed By: #### L 501.6710, L101.9900 ####[facility] [address] [place], [address] Consultation - Orthopedicson 06-20-2025 Consultation - Orthopedics [facility] Medical Records Department [address] [place] [address] Consultation - Orthopedics 06/20/25 1801 MR#: [id number] Acct: [id number] Name: REINIER MENDOZA Rep #: [id number] : 1970 55 From: Yair Benedict MD PCP: REGGIE Arias Status:ADM IN Location: [facility] [id number] HPI Consult Data Date of Consult: 06/20/25 HPI Narrative HPI Narrative: REINIER MENDOZA, is a 55 F who presents with right-sided flank and hip pain. Patient is well-known to me as she underwent L2-4 anterior fusion 8 days ago. She was discharged on postop day 1. She was doing well until when she started feeling burning micturition related to UTI. She started having chills but denies any fever. She then went to the local hospital [facility] where she was treated and discharged. She continued to have chills and she came to [place] [facility]. She underwent an MRI which showed right psoas abscess like lesions. Patient denies any wound complications. Dressings are off in the left flank. Her main symptom seems to be pain in the right flank and right hip and difficulty with flexing the right hip. She has been able to walk with PT. She has been on empiric IV antibiotics since admission last night. [facility] Medical History (Updated 06/20/25 @ 18:[address] Yair Benedict MD) Migraines Lumbar stenosis with neurogenic claudication Obesity (BMI [...] Medications ???Medication ???Instructions ???Recorded ???Last Taken ???Type multivitamin 1 tab PO DAILY SUPPLEMENT 09/22/22 06/10/25 History aspirin 81 mg tablet 81 mg PO DAILY HEART HEALTH 06/19/25 History magnesium 250 mg tablet 500 mg PO QHS CRAMPS 11/20/2309/03 History turmeric root extract 500 mg 1,000 mg PO BID SUPPLEMENT 4 06/10/25 History capsule metformin 500 mg tablet,extended 1,000 mg PO BID DIABETES 12/17/23 06/19/25 History release 24 hr bupropion HCl 300 mg 24 hr tablet, 300 mg PO QAM PTSD 30 days #30 t abs 05/23/25 06/19/25 Rx extended release venlafaxine 150 mg 150 mg PO DAILY BIPOLAR 30 days 06/18/25 Rx capsule,extended release 24 hr #30 caps aripiprazole 15 mg tablet 15 mg PO QHS BIPOLAR 05/26/2505/04 History omega 0-hgv-hhz-fish oil 1,200 mg 2 cap PO DAILY SUPPLEMENT 5 06/10/25 History (144 mg-216 mg) capsule (Fish Oil) pioglitazone 30 mg tablet 30 mg PO QHS DIABETES 05/26/2505/04 History vitamin D3 125 mcg (5,000 1 cap PO DAILY SUPPLEMENT 05/26/25 06/10/25 History unit)-vitamin K2 100 mcg capsule acetaminophen 500 mg tablet 1,000 mg (2 x 500 mg) PO Q6H #30 1 08/13/24 06/19/25 Rx tabs meloxicam 15 mg tablet 15 mg PO DAILY #30 tabs 06/13/25 1 08/18/24 Rx methocarbamol 500 mg tablet 750 mg (1.5 x 500 mg) PO TID PRN 1 08/13/24 06/19/25 Rx Pain/spasms #30 tabs oxycodone 5 mg tablet 2.5 - 5 mg (0.5 - 1 x 5 mg) PO Q6H 06/13/25 06/19/25 Rx PRN pain 7 days #28 tabs carbamazepine 200 mg tablet 400 mg PO BID BIPOLAR 06/19/2506/03 History carvedilol 12.5 mg tablet 12.5 mg PO BID 06/19/25 06/19/25 H istory cephalexin 500 mg capsule 500 mg PO 4X/DAY 06/19/25 06/19/25 History ketorolac 10 mg tablet 10 mg PO Q6H PRN PRN pain 06/19/25 06/19/25 History melatonin 5 mg capsule 5 mg PO QHS PRN 06/19/25 06/18/25 History nifedipine 90 mg tablet,extended 90 mg PO DAILY 06/19/25 06/19/25 H istory release valsartan 160 mg tablet 160 mg PO DAILY 06/19/25 06/19/25 History Allergy/AdvReac Type Severity Reaction Status Date / Time azithromycin Allergy Mild Hives Verified 06/19/25 11:51 Sulfa (Sulfonamide Allergy Mild Other Verified 06/19/25 11:51 Antibiotics) Family History Other Alcoholism Anxiety Arthritis defect Breast cancer CVA (cerebral vascular accident) Cancer Depression Diabetes Hypertension Mental disorder Myocardial infarction Suicide attempt Surgical History (Updated 06/16/25 @ 00:01 by Background William) Hx of colonoscopy Hx of dilation and curettage Hx of decompressive lumbar laminectomy History of lumbar fusion Social History Smoking Status: Former smoker Smo (more content not included)... Normal [facility] Erythrocyte Sed Rateon 06-20 SED RATE 33 mm/hr High 0-30 [facility] Comment on above: Performed By: #### L 501.6710, L101.9900 ####[facility] [address] [place], [address] CBC W/Diff, Automatedon 06-10 Absolute Lymph 1.91 X10 3/uL Normal 0.83-4.51 [facility] Comment on above: Performed By: #### L 100.0100, L500.4050 #### [facility] [address] [place], [address] Absolute Neut 5.7 X10 3/uL Normal 2.0-7.7 [facility] Comment on above: Performed By: #### L 100.0100, L500.4050 #### [facility] [address] [place], [address] Basophils/100 WBC (Bld) 0.3 % Normal 0-1 [facility] Comment on above: Performed By: #### L 100.0100, L500.4050 #### [facility] [address] [place], [address] Eosinophils/100 WBC (Bld) 1.9 % Normal 0-5 [facility] Comment on above: Performed By: #### L 100.0100, L500.4050 #### [facility] [address] [place], [address] Erythrocyte distribution width (RBC) [Ratio] 12.0 % Normal 11.6-14.6 [facility] Comment on above: Performed By: #### L 100.0100, L500.4050 #### [facility] [address] [place], [address] Hematocrit (Bld) [Volume fraction] 31.9 % Low 37-47 [facility] Comment on above: Performed By: #### L 100.0100, L500.4050 #### [facility] [address] [place], [address] Hemoglobin (Bld) [Mass/Vol] 11.1 g/dL Low 12.0-15.0 [facility] Comment on above: Performed By: #### L 100.0100, L500.4050 #### [facility] [address] [place], [address] IG% 0.700 Normal 0.0-0.9 [facility] Comment on above: Result Comment: IG% - Immature Granulocytes (promyelocytes, myelocytes and metamyelocytes) > 1% indicates that a LEFT SHIFT is Present. Performed By: #### L 100.0100, L500.4050 #### [facility] [address] [place], [address] Lymphocytes/100 WBC (Bld) 22.1 % Normal 19-41 [facility] Comment on above: Performed By: #### L 100.0100, L500.4050 #### [facility] [address] [place], [address] MCH (RBC) [Entitic mass] 29.7 pg Normal 27.0-32.0 [facility] Comment on above: Performed By: #### L 100.0100, L500.4050 #### [facility] [address] [place], [address] MCHC (RBC) [Mass/Vol] 34.8 g/dL Normal 32-36 [facility] Comment on above: Performed By: #### L 100.0100, L500.4050 #### [facility] [address] [place], [address] MCV (RBC) [Entitic vol] 85.3 fL Normal 81-99 [facility] Comment on above: Performed By: #### L 100.0100, L500.4050 #### [facility] [address] [place], [address] Monocytes/100 WBC (Bld) 8.7 % Normal 0-10 [facility] Comment on above: Performed By: #### L 100.0100, L500.4050 #### [facility] [address] [place], [address] Neutrophils/100 WBC (Bld) 66.3 % Normal 47-70 [facility] Comment on above: Performed By: #### L 100.0100, L500.4050 #### [facility] [address] [place], [address] Nucleated RBC (Bld) [#/Vol] 0 10*3/uL Normal 0-5 [facility] Comment on above: Performed By: #### L 100.0100, L500.4050 #### [facility] [address] [place], [address] Platelet mean volume (Bld) [Entitic vol] 8.9 fL Normal 6.2-12.0 [facility] Comment on above: Performed By: #### L 100.0100, L500.4050 #### [facility] [address] [place], [address] Platelets (Bld) [#/Vol] 340 10*3/uL Normal 150-450 [facility] Comment on above: Performed By: #### L 100.0100, L500.4050 #### [facility] [address] [place], [address] RBC (Bld) [#/Vol] 3.74 10*6/uL Low 4.2-5.4 [facility] Comment on above: Performed By: #### L 100.0100, L500.4050 #### [facility] [address] [place], [address] RDW SD 37.2 fl Normal 35.1-43.9 [facility] Comment on above: Performed By: #### L 100.0100, L500.4050 #### [facility] [address] [place], [address] WBC (Bld) [#/Vol] 8.6 10*3/uL Normal 4.4-11.0 [facility] Comment on above: Performed By: #### L 100.0100, L500.4050 #### [facility] [address] [place], [address] Comprehensive Metabolic Prof tex 06-19-2025 Albumin [Mass/Vol] 3.7 g/dL Normal 3.5-5.0 [facility] Comment on above: Performed By: #### L 100.0100, L500.4050 #### [facility] [address] [place], [address] Albumin/Globulin [Mass ratio] 1.3 {ratio} Normal 0.9-2.4 [facility] Comment on above: Performed By: #### L 100.0100, L500.4050 #### [facility] [address] [place], [address] ALK PHOS 64 U/L Normal 35-104 [facility] Comment on above: Performed By: #### L 100.0100, L500.4050 #### [facility] [address] [place], [address] ALT [Catalytic activity/Vol] 18 U/L Normal <=34 [facility] Comment on above: Performed By: #### L 100.0100, L500.4050 #### [facility] [address] [place], [address] AST [Catalytic activity/Vol] 19 U/L Normal <=31 [facility] Comment on above: Performed By: #### L 100.0100, L500.4050 #### [facility] [address] [place], [address] Bilirubin [Mass/Vol] 0.24 mg/dL Normal 0.00-1.30 [facility] Comment on above: Performed By: #### L 100.0100, L500.4050 #### [facility] [address] [place], [address] BUN/CRE 31.7 RATIO High 10-20 [facility] Comment on above: Performed By: #### L 100.0100, L500.4050 #### [facility] [address] [place], [address] Calcium [Mass/Vol] 9.7 mg/dL Normal 7.6-11.0 [facility] Comment on above: Performed By: #### L 100.0100, L500.4050 #### [facility] [address] [place], [address] Chloride [Moles/Vol] 85 mmol/L Low 98-108 [facility] Comment on above: Performed By: #### L 100.0100, L500.4050 #### [facility] [address] [place], [address] CO2 [Moles/Vol] 23.0 mmol/L Normal 21.0-32.0 [facility] Comment on above: Performed By: #### L 100.0100, L500.4050 #### [facility] [address] [place], [address] Creatinine [Mass/Vol] 0.49 mg/dL Low 0.70-1.20 [facility] Comment on above: Performed By: #### L 100.0100, L500.4050 #### [facility] [address] [place], [address] ECRCL 160.41 ml/min Normal 50-250 [facility] Comment on above: Performed By: #### L 100.0100, L500.4050 #### [facility] [address] [place], [address] GAP 13 Normal 5-15 [facility] Comment on above: Performed By: #### L 100.0100, L500.4050 #### [facility] [address] [place], [address] GFR/1.73 sq M.predicted among non-blacks MDRD (S/P/Bld) [Vol rate/Area] 111 mL/min/{1.73_m2} Normal >60 [facility] Comment on above: Result Comment: mL/m in/1.73m2 CKD-EPI Creatinine Equation (2020) Performed By: #### L 100.0100, L500.4050 #### [facility] [address] [place], [address] Globulin (S) [Mass/Vol] 2.9 g/dL Normal 2.2-4.2 [facility] Comment on above: Performed By: #### L 100.0100, L500.4050 #### [facility] [address] [place], [address] Glucose [Mass/Vol] 159 mg/dL High 70-99 [facility] Comment on above: Performed By: #### L 100.0100, L500.4050 #### [facility] [address] [place], [address] Potassium [Moles/Vol] 4.4 mmol/L Normal 3.3-5.1 [facility] Comment on above: Performed By: #### L 100.0100, L500.4050 #### [facility] [address] [place], [address] Sodium [Moles/Vol] 122 mmol/L Low 133-145 [facility] Comment on above: Performed By: #### L 100.0100, L500.4050 #### [facility] [address] [place], [address] T PROT 6.7 g/dL Normal 5.9-8.4 [facility] Comment on above: Performed By: #### L 100.0100, L500.4050 #### [facility] [address] [place], [address] Urea nitrogen [Mass/Vol] 16 mg/dL Normal 4-19 [facility] Comment on above: Performed By: #### L 100.0100, L500.4050 #### [facility] [address] [place], [address] Emergency Department Summary on 06-19-2025 Emergency Department Summary [facility] Medical Records Department [address] [place] [address] Emergency Department Summary 06/19/25 MR#: [id number] Acct: [id number] Name: REINIER MENDOZA Rep #: [id number] : 1970 55 From: Luis Antonio Gonzales DO PCP: REGGIE Arias Status:ADM IN Location: [facility] [id number] Cole Lee DO on 06/20/25 at 0042 Patient was checked out to me by Dr. Gonzales. I reviewed the MRI findings. I spoke with Dr. Benedict and we are able to obtain the CT imaging and read from the patient's outside emergency department visit a few days ago. Patient has required redosing with pain medicine. Plan on medicine admission. I obtained blood cultures and ordered vancomycin and ceftriaxone due to the possible postsurgical infection. I do not see obvious cauda equina at this point. Hospitalist has come to the ED to visit with the patient and we are admitting her. 06/20/2541 Cosigner Signature (if applicable): cc: REGGIE Arroyo * Signed HPI History of Present Illness Chief Complaint: Back Narrative Narrative: Patient is a 55-year-old female with a past medical history of lumbar stenosis with neurogenic claudication, hypercholesteremia, TIA, CPAP, PTSD, bipolar disorder, hypertension, type 2 diabetes who presents to the emergency department the chief complaint of back pain. States that on Thursday of this past week 06/12/2025 Dr. Wynn did surgery on her. She states that she bent over the wrong way several days ago and notes that she has had increased pain since then. States that she went to [facility] had a workup including a CT and states that they did some medication adjustments and diagnosed with a UTI and sent her home. States that she ran out of medications again and called Dr. Wynn's office and they advised her to come to the emergency department here to be further evaluated. She states that she is having difficulty taking care of herself at home secondary to the pain and feels that she may need rehab. She states that she is urinating and not soiling herself. [facility] Medical History Lumbar stenosis with neurogenic claudication [...] Medications ???Medication ???Instructions ???Recorded ???Last Taken ???Type multivitamin 1 tab PO DAILY SUPPLEMENT 09/22/22 06/10/25 History aspirin 81 mg tablet 81 mg PO DAILY HEART HEALTH 06/19/25 History magnesium 250 mg tablet 500 mg PO QHS CRAMPS 11/20/2309/03 History turmeric root extract 500 mg 1,000 mg PO BID SUPPLEMENT 4 06/10/25 History capsule metformin 500 mg tablet,extended 1,000 mg PO BID DIABETES 12/17/23 06/19/25 History release 24 hr bupropion HCl 300 mg 24 hr tablet, 300 mg PO QAM PTSD 30 days #30 t abs 05/23/25 06/19/25 Rx extended release venlafaxine 150 mg 150 mg PO DAILY BIPOLAR 30 days 06/18/25 Rx capsule,extended release 24 hr #30 caps aripiprazole 15 mg tablet 15 mg PO QHS BIPOLAR 05/26/2505/04 History omega 8-vny-cvo-fish oil 1,200 mg 2 cap PO DAILY SUPPLEMENT 5 06/10/25 History (144 mg-216 mg) capsule (Fish Oil) pioglitazone 30 mg tablet 30 mg PO QHS DIABETES 05/26/2505/04 History vitamin D3 125 mcg (5,000 1 cap PO DAILY SUPPLEMENT 05/26/25 06/10/25 History unit)-vitamin K2 100 mcg capsule acetaminophen 500 mg tablet 1,000 mg (2 x 500 mg) PO Q6H #30 1 08/13/24 06/19/25 Rx tabs meloxicam 15 mg tablet 15 mg PO DAILY #30 tabs 06/13/25 1 08/18/24 Rx methocarbamol 500 mg tablet 750 mg (1.5 x 500 mg) PO TID PRN 1 08/13/24 06/19/25 Rx Pain/spasms #30 tabs oxycodone 5 mg tablet 2.5 - 5 mg (0.5 - 1 x 5 mg) PO Q6H 06/13/25 06/19/25 Rx PRN pain 7 days #28 tabs carbamazepine 200 mg tablet 400 mg PO BID BIPOLAR 06/19/2506/03 History carvedilol 12.5 mg tablet 12.5 mg PO BID 06/19/25 06/19/25 H istory cephalexin 500 mg capsule 500 mg PO 4X/DAY 06/19/25 06/19/25 History ketorolac 10 mg tablet 10 mg PO Q6H PRN PRN pain 06/19/25 06/19/25 History melatonin 5 mg capsule 5 mg PO QHS PRN 06/19/25 06/18/25 History nifedipine 90 mg tablet,extended 90 mg PO DAILY 06/19/25 06/19/25 H istory release valsartan (more content not included)... Normal [facility] Lactic Acidon 06-19-2025 Lactate [Moles/Vol] 1.2 mmol/L Normal 0.0-2.0 [facility] Comment on above: Order Comment: Y Performed By: #### L 503.6005, M200.1000 #### [facility] [address] [facility] [place], [address] Spine Lumbar W/WO Contraston 06-19-2025 Spine Lumbar W/WO Contrast [facility] [address] [place], [place] [id number] Spine Lumbar W/WO Contrast MR#: [id number] Acct: [id number] Name: REINIER MENDOZA Rep #: [id number] : 1970 F 55 From: Fred Santoyo MD PCP: Suzanne Cruz, DIRECTOR HEDIS-C Status: REG ER Study: Spine Lumbar W/WO Contrast Date of Exam: 06/10 Exam# [id number] Ordering Dr: Luis Antonio Gonzales DO PROCEDURE: MRI SPINE LUMBAR W/WO CONTRAST 06/19/2025 REASON FOR EXAM: BACK PAIN, RECENT SURGERY TECHNIQUE: Procedure Code: MRISPLWW Modality: MR Procedure: SPINE LUMBAR W/WO CONTRAST Multiplanar and multisequence images were obtained without and with intravenous gadolinium-based contrast administration. CONTRAST: Clariscan VOLUME: 20 mL COMPARISON: Lumbar spine MRI 03/16/2025, CT 06/08/2025, radiographs 06/13/2025. FINDINGS: No evidence of acute fracture or subluxation. Postoperative changes of dorsal decompressive laminectomies and instrumented fusion from L4-S1, and more recent interbody and metallic plate and screw fixation along the left aspect of the L2-L4 vertebral segments, with associated metallic susceptibility artifact at these levels. Persistent moderate-advanced spinal canal narrowing at the L2-L3 levels primarily due to prominent epidural fat/lipomatosis, and a broad-based dorsal disc bulge at L2-3, as well as ligamentum flavum/facet hypertrophy. Irregular mild-moderate spinal canal narrowing at L3-4. Crowding and possible impingement of the cauda equina at the L2-3 levels with redundancy, similar from prior exam. Neural foraminal narrowing is mild bilaterally at L2-3, L3-4, L4-5 and L5-S1. There is asymmetric edema and multiple small marginally enhancing fluid collections within the right psoas muscle, concerning for myositis and small intramuscular abscess formations. The largest collections measure up to 15 x 13 mm superiorly, and 12 x 11 mm anteroinferiorly (see chaudhary images). Metallic artifact otherwise limits evaluation of the immediately adjacent paravertebral soft tissues. MRI/Spine Lumbar W/WO Contrast IMPRESSION: Postoperative changes of dorsal decompressive laminectomies and instrumented fusion from L4-S1, and recent interbody and metallic plate and screw fixation from L2-L4. New asymmetric edema within the right psoas muscle belly with multiple small peripherally enhancing fluid collections compatible with myositis and intramuscular abscess formations. Findings are concerning for postoperative spondylodiscitis at the L2-3 levels. No appreciable abnormal fluid/abscess collection within the spinal canal, although evaluation is somewhat limited due to metallic artifact. Persistent moderate-advanced spinal canal stenosis from L2-L3 with crowding and possible impingement of the cauda equina. This is unchanged from prior exam. Findings communicated via telephone with provider Kevon Lee 06/19/2025 at 7 p.m. 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 Reading Location: [id number] CC: REGGIE Arroyo; Dr. Luis Antonio Gonzales DO [employer]: Signed Normal [facility] Bacteriaon 06-16-2025 Bacteria identified Cx Nom (U) Test: Urine Culture Specimen Source: Clean Catch/Voided Specimen Type: Urine Specimen Date: 06/16/2025104 Result Date: 06/17/2025657 Result Status: Final result Abnormal: No Resulting Lab: [facility] [address] [place] [address] CULTURE Clinically insignificant growth based on current clinical standards. Normal [facility] Comment on above: Performed By: #### 6 30-4 #### ANTONIETA Wagner ([id number]) [facility] ([facility]) [address] [place] [address] CBC W Auto Differential pane l (Bld)on 06-16-2025 Basophils (Bld) [#/Vol] 0.03 10*3/uL [facility] Basophils/100 WBC (Bld) 0.3 % 0.0 - 2.0 % [facility] Eosinophils (Bld) [#/Vol] 0.11 10*3/uL [facility] Eosinophils/100 WBC (Bld) 1.1 % 0.0 - 6.0 % [facility] Erythrocyte distribution width (RBC) [Ratio] 11.9 % 11.5 - 14.5 % [facility] Hematocrit (Bld) [Volume fraction] 29.4 % Low 36.0 - 46.0 % [facility] Hemoglobin (Bld) [Mass/Vol] 10.5 g/dL Low 12.0 - 16.0 g/dL [facility] Immature granulocytes (Bld) [#/Vol] 0.05 10*3/uL [facility] Immature granulocytes/100 WBC (Bld) 0.5 % 0.0 - 0.9 % [facility] Comment on above: Immature Granulocyte Count (IG) includes promyelocytes, myelocytes and metamyelocytes but does not include bands. Percent differential counts (%) should be interpreted in the context of the absolute cell counts (cells/UL). Interpretation and review of laboratory results Abnormal [facility] Lymphocytes (Bld) [#/Vol] 1.94 10*3/uL [facility] Lymphocytes/100 WBC (Bld) 19.4 % 13.0 - 44.0 % [facility] MCH (RBC) [Entitic mass] 30.5 pg 26.0 - 34.0 pg [facility] MCHC (RBC) [Mass/Vol] 35.7 g/dL 32.0 - 36.0 g/dL [facility] MCV (RBC) [Entitic vol] 86 fL 80 - 100 fL [facility] Monocytes (Bld) [#/Vol] 0.84 10*3/uL [facility] Monocytes/100 WBC (Bld) 8.4 % 2.0 - 10.0 % [facility] Neutrophils (Bld) [#/Vol] 7.01 10*3/uL [facility] Comment on above: Percent differential counts (%) should be interpreted in the context of the absolute cell counts (cells/uL). Neutrophils/100 WBC (Bld) 70.3 % 40.0 - 80.0 % [facility] Nucleated RBC/100 WBC (Bld) [Ratio] 0.0 % [facility] Platelets (Bld) [#/Vol] 235 10*3/uL [facility] RBC (Bld) [#/Vol] 3.44 10*6/uL Low [facility] WBC (Bld) [#/Vol] 10.0 10*3/uL [facility] Basophils (Bld) [#/Vol] 0.03 x10*3/uL Normal 0.00-0.10 [facility] Comment on above: Performed By: #### 5 7021-8 #### VELIA HAUSER ([id number]) [facility] ([facility]) [address] [place] [address] Basophils/100 WBC (Bld) 0.3 % Normal 0.0-2.0 [facility] Comment on above: Performed By: #### 7021-8 #### VELIA HAUSER ([id number]) [facility] ([facility]) [address] [place] [address] Eosinophils (Bld) [#/Vol] 0.11 x10*3/uL Normal 0.00-0.70 [facility] Comment on above: Performed By: #### 70-8 #### VELIA HAUSER ([id number]) [facility] ([facility]) [address] [place] [address] Eosinophils/100 WBC (Bld) 1.1 % Normal 0.0-6.0 [facility] Comment on above: Performed By: #### 70-8 #### VELIA HAUSER ([id number]) [facility] ([facility]) [address] [place] [address] Erythrocyte distribution width (RBC) [Ratio] 11.9 % Normal 11.5-14.5 [facility] Comment on above: Performed By: #### 7021-8 #### VELIA HAUSER ([id number]) [facility] ([facility]) [address] [place] [address] Hematocrit (Bld) [Volume fraction] 29.4 % Low 36.0-46.0 [facility] Comment on above: Performed By: #### 7021-8 #### VELIA HAUSER ([id number]) [facility] ([facility]) [address] [place] [address] Hemoglobin (Bld) [Mass/Vol] 10.5 g/dL Low 12.0-16.0 [facility] Comment on above: Performed By: #### 7021-8 #### VELIA HAUSER ([id number]) [facility] ([facility]) [address] [place] [address] Immature granulocytes (Bld) [#/Vol] 0.05 x10*3/uL Normal 0.00-0.70 [facility] Comment on above: Performed By: #### 5 7021-8 #### VELIA HAUSER ([id number]) [facility] ([facility]) [address] [place] [address] Immature granulocytes/100 WBC (Bld) 0.5 % Normal 0.0-0.9 [facility] Comment on above: Result Comment: Opal ture Granulocyte Count (IG) includes promyelocytes, myelocytes and metamyelocytes but does not include bands. Percent differential counts (%) should be interpreted in the context of the absolute cell counts (cells/UL). Performed By: #### 5 7021-8 #### VELIA HAUSER ([id number]) [facility] ([facility]) [address] [place] [address] Lymphocytes (Bld) [#/Vol] 1.94 x10*3/uL Normal 1.20-4.80 [facility] Comment on above: Performed By: #### 5 7021-8 #### VELIA HAUSER ([id number]) [facility] ([facility]) [address] [place] [address] Lymphocytes/100 WBC (Bld) 19.4 % Normal 13.0-44.0 [facility] Comment on above: Performed By: #### 5 7021-8 #### VELIA HAUSER ([id number]) [facility] ([facility]) [address] [place] [address] MCH (RBC) [Entitic mass] 30.5 pg Normal 26.0-34.0 [facility] Comment on above: Performed By: #### 5 7021-8 #### VELIA HAUSER ([id number]) [facility] ([facility]) [address] [place] [address] MCHC (RBC) [Mass/Vol] 35.7 g/dL Normal 32.0-36.0 [facility] Comment on above: Performed By: #### 5 7021-8 #### VELIA HAUSER ([id number]) [facility] ([facility]) [address] [place] [address] MCV (RBC) [Entitic vol] 86 fL Normal 80-100 [facility] Comment on above: Performed By: #### 5 7021-8 #### VELIA HAUSER ([id number]) [facility] ([facility]) [address] [place] [address] Monocytes (Bld) [#/Vol] 0.84 x10*3/uL Normal 0.10-1.00 [facility] Comment on above: Performed By: #### 5 7021-8 #### VELIA HAUSER ([id number]) [facility] ([facility]) [address] [place] [address] Monocytes/100 WBC (Bld) 8.4 % Normal 2.0-10.0 [facility] Comment on above: Performed By: #### 5 7021-8 #### VELIA HAUSER ([id number]) [facility] ([facility]) [address] [place] [address] Neutrophils (Bld) [#/Vol] 7.01 x10*3/uL Normal 1.20-7.70 [facility] Comment on above: Result Comment: Perc ent differential counts (%) should be interpreted in the context of the absolute cell counts (cells/uL). Performed By: #### 5 7021-8 #### VELIA HAUSER ([id number]) [facility] ([facility]) [address] [place] [address] Neutrophils/100 WBC (Bld) 70.3 % Normal 40.0-80.0 [facility] Comment on above: Performed By: #### 5 7021-8 #### VELIA HAUSER ([id number]) [facility] ([facility]) [address] [place] [address] Nucleated RBC/100 WBC (Bld) [Ratio] 0.0 /100 WBCs Normal 0.0-0.0 [facility] Comment on above: Performed By: #### 5 7021-8 #### VELIA HAUSER ([id number]) [facility] ([facility]) [address] [place] [address] Platelets (Bld) [#/Vol] 235 x10*3/uL Normal 150-450 [facility] Comment on above: Performed By: #### 5 7021-8 #### VELIA HAUSER ([id number]) [facility] ([facility]) [address] [place] [address] RBC (Bld) [#/Vol] 3.44 x10*6/uL Low 4.00-5.20 [facility] Comment on above: Performed By: #### 5 7021-8 #### VELIA HAUSER ([id number]) [facility] ([facility]) [address] [place] [address] WBC (Bld) [#/Vol] 10.0 x10*3/uL Normal 4.4-11.3 [facility] Comment on above: Performed By: #### 5 7021-8 #### VELIA HAUSER ([id number]) [facility] ([facility]) [address] [place] [address] CT ABDOMEN PELVIS W IV CONTR Zack 06-16-2025 CT ABDOMEN PELVIS W IV CONTRAST Interpreted By: Randy Painter, STUDY: CT ABDOMEN PELVIS W IV CONTRAST; 06/16/2025 2:47 am INDICATION: Signs/Symptoms:pain. COMPARISON: CT ABDOMEN PELVIS W IV CONTRAST 06/17/2024 ACCESSION NUMBER(S): [id number] ORDERING CLINICIAN: BREN KOWALSKI TECHNIQUE: Axial CT [...] Randy Painter 06/16/2025 3:11 AM Dictation workstation: [id number] [facility] CT Abdomen and Pelvis W cont [...] Randy Painter 06/16/2025 3:11 AM Dictation workstation: [id number] Interpreted By: Randy Painter, STUDY: CT ABDOMEN PELVIS W IV CONTRAST; 06/16/2025 2:47 am INDICATION: Signs/Symptoms:pain. COMPARISON: CT ABDOMEN PELVIS W IV CONTRAST 06/17/2024 ACCESSION NUMBER(S): [id number] ORDERING CLINICIAN: BREN KOWALSKI TECHNIQUE: Axial CT [...] PELVIS W IV CONTRAST 06/17/2024 ACCESSION NUMBER(S): [id number] ORDERING CLINICIAN: BREN KOWALSKI TECHNIQUE: Axial CT [...] Randy Painter 06/16/2025 3:11 AM Dictation workstation: [id number] [facility] Work Phone: Radiology Study observation (narrative) [facility] Work Phone: CT Abdomen and Pelvis W cont rast IVOrdered By: Randy Painter on 06-16-2025 [facility] Work Phone: Comprehensive metabolic 2000 panelon 06-16-2025 Albumin BCP dye [Mass/Vol] 3.7 g/dL 3.4 - 5.0 g/dL [facility] ALP [Catalytic activity/Vol] 54 U/L 33 - 110 U/L [facility] ALT With P-5'-P [Catalytic activity/Vol] 17 U/L 7 - 45 U/L [facility] Comment on above: Patients treated wit h Sulfasalazine may generate falsely decreased results for ALT. Anion gap [Moles/Vol] 13 mmol/L [facility] AST With P-5'-P [Catalytic activity/Vol] 16 U/L 9 - 39 U/L [facility] Bilirubin [Mass/Vol] 0.3 mg/dL 0.0 - 1 .2 mg/dL [facility] Calcium [Mass/Vol] 8.9 mg/dL 8.6 - 10. 3 mg/dL [facility] Chloride [Moles/Vol] 91 mmol/L Low 98 - 10 7 mmol/L [facility] CO2 [Moles/Vol] 26 mmol/L 21 - 32 mmol/L [facility] Comment on above: Bicarbonate results may be falsely elevated when Lactate Dehydrogenase (LDH) concentrations exceed 2,000 U/L due to a temporary reagent manufacturing issue. If significantly elevated LDH levels are suspected, interpret bicarbonate results with caution, correlate with the patient s clinical status, and consider confirming CO2 values using a blood gas analyzer. Creatinine [Mass/Vol] 0.43 mg/dL Low 0.50 - 1.05 mg/dL [facility] eGFR - PINF [facility] Comment on above: Calculations of nick mated GFR are performed using the 2020 CKD-EPI Study Refit equation without the race variable for the IDMS-Traceable creatinine methods. https://jasn.asnjournals.org/content/early/ASN.1025891 988 Glucose [Mass/Vol] 209 mg/dL High 74 - 99 mg/dL [facility] Interpretation and review of laboratory results Abnormal [facility] Potassium [Moles/Vol] 3.7 mmol/L 3.5 - 5.3 mmol/L [facility] Protein [Mass/Vol] 6.4 g/dL 6.4 - 8.2 g/dL [facility] Sodium [Moles/Vol] 126 mmol/L Low 136 - 145 mmol/L [facility] Urea nitrogen [Mass/Vol] 9 mg/dL 6 - 23 mg/dL [facility] Albumin BCP dye [Mass/Vol] 3.7 g/dL Normal 3.4-5.0 [facility] Comment on above: Performed By: #### 2 4323-8 #### VELIA HAUSER ([id number]) [facility] ([facility]) [facility] [place] [address] ALP [Catalytic activity/Vol] 54 U/L Normal 33-110 [facility] Comment on above: Performed By: #### 2 4323-8 #### VELIA HAUSER ([id number]) [facility] ([facility]) [address] [place] [address] ALT With P-5'-P [Catalytic activity/Vol] 17 U/L Normal 7-45 [facility] Comment on above: Result Comment: Sharmila ents treated with Sulfasalazine may generate falsely decreased results for ALT. Performed By: #### 2 4323-8 #### VELIA HAUSER ([id number]) [facility] ([facility]) [address] [place] [address] Anion gap [Moles/Vol] 13 mmol/L Normal [facility] Comment on above: Performed By: #### 2 4323-8 #### VELIA HAUSER ([id number]) [facility] ([facility]) [facility] [place] [address] AST With P-5'-P [Catalytic activity/Vol] 16 U/L Normal 9-39 [facility] Comment on above: Performed By: #### 2 4323-8 #### VELIA HAUSER ([id number]) [facility] ([facility]) [facility] [place] [address] Bilirubin [Mass/Vol] 0.3 mg/dL Normal 0.0-1.2 [facility] Comment on above: Performed By: #### 2 4323-8 #### VELIA HAUSER ([id number]) [facility] ([facility]) [address] [place] [address] Calcium [Mass/Vol] 8.9 mg/dL Normal 8.6-10.3 [facility] Comment on above: Performed By: #### 2 4323-8 #### VELIA HAUSER ([id number]) [facility] ([facility]) [address] [place] [address] Chloride [Moles/Vol] 91 mmol/L Low 98-107 [facility] Comment on above: Performed By: #### 2 432-8 #### VELIA HAUSER ([id number]) [facility] ([facility]) [address] [place] [address] CO2 [Moles/Vol] 26 mmol/L Normal 21-[address] [facility] Comment on above: Result Comment: Bica rbonate results may be falsely elevated when Lactate Dehydrogenase (LDH) concentrations exceed 2,000 U/L due to a temporary reagent manufacturing issue. If significantly elevated LDH levels are suspected, interpret bicarbonate results with caution, correlate with the patient's clinical status, and consider confirming CO2 values using a blood gas analyzer. Performed By: #### 2 4323-8 #### VELIA HAUSER ([id number]) [facility] [facility] ([facility]) [address] [place] [address] Creatinine [Mass/Vol] 0.43 mg/dL Low 0.50-1.05 [facility] Comment on above: Performed By: #### 2 4323-8 #### VELIA HAUSER ([id number]) [facility] ([facility]) [address] [place] [address] 76098 Glomerular filtration rate >90 Normal >60 [facility] Comment on above: Result Comment: Calc ulations of estimated GFR are performed using the 2020 CKD-EPI Study Refit equation without the race variable for the IDMS-Traceable creatinine methods. https://jasn.asnjournals.org/content/early/ASN.2053946 988 Performed By: #### 2 4323-8 #### VELIA HAUSER ([id number]) [facility] ([facility]) [address] [place] [address] 70908 Glucose [Mass/Vol] 209 mg/dL High 74-99 [facility] Comment on above: Performed By: #### 2 4323-8 #### VELIA HAUSER ([id number]) [facility] ([facility]) [address] [place] [address] 29851 Potassium [Moles/Vol] 3.7 mmol/L Normal 3.5-5.3 [facility] Comment on above: Performed By: #### 2 4323-8 #### VELIA HAUSER ([id number]) [facility] ([facility]) [address] [place] [address] 02454 Protein [Mass/Vol] 6.4 g/dL Normal 6.4-8.2 [facility] Comment on above: Performed By: #### 2 4323-8 #### VELIA HAUSER ([id number]) [facility] ([facility]) [address] [place] [address] 17030 Sodium [Moles/Vol] 126 mmol/L Low 136-145 [facility] Comment on above: Performed By: #### 2 4323-8 #### VELIA HAUSER ([id number]) [facility] ([facility]) [address] [place] [address] 45054 Urea nitrogen [Mass/Vol] 9 mg/dL Normal 6-23 [facility] Comment on above: Performed By: #### 2 4323-8 #### VELIA HAUSER ([id number]) [facility] ([facility]) [address] [place] [address] 78381 Lactateon 06-16-2025 Lactate [Moles/Vol] 1.9 mmol/L 0.4 - 2. 0 mmol/L [facility] Lactate [Moles/Vol] 1.9 mmol/L Normal 0.4-2.0 [facility] Comment on above: Order Comment: Venip uncture immediately after or during the administration of Metamizole may lead to falsely low results. Testing should be performed immediately prior to Metamizole dosing. Performed By: #### 2 524-7 #### GUNN MURTAZA ([id number]) [facility] ([facility]) [address] [place] [address] Lactate [Moles/Vol]on 2024 Interpretation and review of laboratory results Normal [facility] Venipuncture immedia tely after or during the administration of Metamizole may lead to falsely low results. Testing should be performed immediately prior to Metamizole dosing. [facility] No Panel Informationon 06-16 Interpretation and review of laboratory results Abnormal [facility] Urinalysis complete W Reflex Culture panel (U)on 06-16-2025 Appearance (U) Clear Clear [facility] Bilirubin (U) [Mass/Vol] Negative NEGATIVE mg/dL [facility] Color (U) Light-Yellow Light-Yellow , Yellow, Dark-Yellow [facility] Glucose Auto test strip (U) [Mass/Vol] 200 (2+) Abnormal Normal mg/dL [facility] Ketones (U) [Mass/Vol] Negative NEGATIVE mg/dL [facility] Leukocyte esterase Auto test strip Ql (U) 75 Paulina/uL Abnormal NEGATIVE [facility] Nitrite Auto test strip Ql (U) Negative NEGATIVE [facility] pH (U) 7.0 [pH] 5.0, 5.5, 6.0, 6.5, 7.0, 7.5, 8.0 [facility] Protein (U) [Mass/Vol] 10 (TRACE) NEGATIVE, 10 (TRACE), 20 (TRACE) mg/dL [facility] RBC (U) [#/Vol] Negative NEGATIVE mg/dL [facility] Specific gravity (U) [Rel density] 1.011 1.005 - 1.035 [facility] Urobilinogen (U) [Mass/Vol] Normal Normal mg/dL [facility] Appearance (U) Clear Normal Clear [facility] Comment on above: Performed By: #### 5 8077-9 #### VELIA HAUSER ([id number]) [facility] ([facility]) [address] [place] [address] Bilirubin (U) [Mass/Vol] Negative Normal NEGATIVE [facility] Comment on above: Performed By: #### 5 8077-9 #### VELIA HAUSER ([id number]) [facility] ([facility]) [address] [place] [address] Color (U) Light-Yellow Normal Light-Yellow , Yellow, Dark-Yellow [facility] Comment on above: Performed By: #### 5 8077-9 #### VELIA HAUSER ([id number]) [facility] ([facility]) [address] [place] [address] Glucose Auto test strip (U) [Mass/Vol] 200 (2+) Abnormal Normal [facility] Comment on above: Performed By: #### 5 8077-9 #### VELIA HAUSER ([id number]) [facility] ([facility]) [address] [place] [address] Ketones (U) [Mass/Vol] Negative Normal NEGATIVE [facility] Comment on above: Performed By: #### 5 8077-9 #### VELIA HAUSER ([id number]) [facility] ([facility]) [address] [place] [address] Leukocyte esterase Auto test strip Ql (U) 75 Paulina/uL Abnormal NEGATIVE [facility] Comment on above: Performed By: #### 5 8077-9 #### VELIA HAUSER ([id number]) [facility] ([facility]) [address] [place] [address] Nitrite Auto test strip Ql (U) Negative Normal NEGATIVE [facility] Comment on above: Performed By: #### 5 8077-9 #### VELIA HAUSER ([id number]) [facility] ([facility]) [address] [place] [address] pH (U) 7.0 [pH] Normal 5.0, 5.5, 6.0, 6.5, 7.0, 7.5, 8.0 [facility] Comment on above: Performed By: #### 5 8077-9 #### VELIA HAUSER ([id number]) [facility] ([facility]) [address] [place] [address] Protein (U) [Mass/Vol] 10 (TRACE) Normal NEGATIVE, 10 (TRACE), 20 (TRACE) [facility] Comment on above: Performed By: #### 5 8077-9 #### VELIA HAUSER ([id number]) [facility] ([facility]) [address] [place] [address] RBC (U) [#/Vol] Negative Normal NEGATIVE [facility] Comment on above: Performed By: #### 5 8077-9 #### VELIA HAUSER ([id number]) [facility] ([facility]) [address] [place] [address] Specific gravity (U) [Rel density] 1.011 Normal 1.005-1.035 [facility] Comment on above: Performed By: #### 5 8077-9 #### VELIA HAUSER ([id number]) [facility] ([facility]) [address] [place] [address] Urobilinogen (U) [Mass/Vol] Normal Normal Normal [facility] Comment on above: Performed By: #### 5 8077-9 #### VELIA HAUSER ([id number]) [facility] ([facility]) [address] [place], [place] [address] Urinalysis microscopic panel Auto Ql (U)on 06-16-2025 Bacteria Auto (Urine sed) [#/Area] 1+ Abnormal NONE SEEN /HPF [facility] Crystals.amorphous Computer assisted (U) [#/Area] 1+ NONE, 1+, 2+ /HPF [facility] Epithelial cells.squamous Auto (Urine sed) [#/Area] 1-9 (SPARSE) Reference range not established. /HPF [facility] RBC Auto (Urine sed) [#/Area] 1-2 NONE, 1-2, 3-5 /HPF [facility] WBC Auto (Urine sed) [#/Area] 6-10 Abnormal 1-5, NONE /HPF [facility] Yeast.budding Computer assisted (U) [#/Area] PRESENT Abnormal NONE /HPF [facility] Bacteria Auto (Urine sed) [#/Area] 1+ /HPF Abnormal NONE SEEN [facility] Comment on above: Performed By: #### 5 3315-8 #### VELIA HAUSER ([id number]) [facility] ([facility]) [address] [place] [address] Crystals.amorphous Computer assisted (U) [#/Area] 1+ /HPF Normal NONE, 1+, 2+ [facility] Comment on above: Performed By: #### 5 5-8 #### VELIA HAUSER ([id number]) [facility] ([facility]) [address] [place] [address] Epithelial cells.squamous Auto (Urine sed) [#/Area] 1-9 (SPARSE) Normal Reference range not established. [facility] Comment on above: Performed By: #### 5 5-8 #### VELIA HAUSER ([id number]) [facility] ([facility]) [address] [place] [address] RBC Auto (Urine sed) [#/Area] 1-2 Normal NONE, 1-2, 3-5 [facility] Comment on above: Performed By: #### 5 0245-8 #### VELIA HAUSER ([id number]) [facility] ([facility]) [address] [place] [address] WBC Auto (Urine sed) [#/Area] 6-10 Abnormal 1-5, NONE [facility] Comment on above: Performed By: #### 5 5-8 #### VELIA HAUSER ([id number]) [facility] ([facility]) [address] [place] [address] Yeast.budding Computer assisted (U) [#/Area] PRESENT Abnormal NONE [facility] Comment on above: Performed By: #### 5 4345-8 #### VELIA HAUSER ([id number]) [facility] ([facility]) [address] [place] [address] Basic Metabolic Profile (BMP )on 06-13-2025 BUN/CRE 18.9 RATIO Normal 10-20 [facility] Comment on above: Performed By: #### L 500.2500, L100.0100 ####[facility] [address] [place], [address] Calcium [Mass/Vol] 8.4 mg/dL Normal 7.6-11.0 [facility] Comment on above: Performed By: #### L 500.2500, L100.0100 ####[facility] [address] [place], [address] Chloride [Moles/Vol] 88 mmol/L Low 98-108 [facility] Comment on above: Performed By: #### L 500.2500, L100.0100 ####[facility] [address] [place], [address] CO2 [Moles/Vol] 23.2 mmol/L Normal 21.0-32.0 [facility] Comment on above: Performed By: #### L 500.2500, L100.0100 ####[facility] [address] [place], [address] Creatinine [Mass/Vol] 0.57 mg/dL Low 0.70-1.20 [facility] Comment on above: Performed By: #### L 500.2500, L100.0100 ####[facility] [address] [place], [address] ECRCL 134.48 ml/min Normal 50-250 [facility] Comment on above: Performed By: #### L 500.2500, L100.0100 ####[facility] [address] [place], [address] GAP 12 Normal 5-15 [facility] Comment on above: Performed By: #### L 500.2500, L100.0100 ####[facility] [address] [place], [address] GFR/1.73 sq M.predicted among non-blacks MDRD (S/P/Bld) [Vol rate/Area] 106 mL/min/{1.73_m2} Normal >60 [facility] Comment on above: Result Comment: mL/m in/1.73m2 CKD-EPI Creatinine Equation (2020) Performed By: #### L 500.2500, L100.0100 ####[facility] [address] [place], [address] Glucose [Mass/Vol] 181 mg/dL High 70-99 [facility] Comment on above: Performed By: #### L 500.2500, L100.0100 ####[facility] [address] [place], [address] Potassium [Moles/Vol] 3.6 mmol/L Normal 3.3-5.1 [facility] Comment on above: Performed By: #### L 500.2500, L100.0100 ####[facility] [address] [place], [address] Sodium [Moles/Vol] 123 mmol/L Low 133-145 [facility] Comment on above: Performed By: #### L 500.2500, L100.0100 ####[facility] [address] [place], [address] Urea nitrogen [Mass/Vol] 11 mg/dL Normal 4-19 [facility] Comment on above: Performed By: #### L 500.2500, L100.0100 ####[facility] [address] [place], [address] Bedside Glucoseon 06-13-2025 FINGERSTICK GLU 234 mg/dL High 74-106 [facility] Comment on above: Result Comment: PARTH WERNER OF PATIENT CARE PER NURSING PROTOCOL Performed By: #### L 503.6005, M200.1000 #### [facility] [address] [place], [address] CBC W/Diff, Automatedon 11-0 4-2024 Absolute Lymph 2.40 X10 3/uL Normal 0.83-4.51 [facility] Comment on above: Performed By: #### L 500.2500, L100.0100 ####[facility] [address] [place], [address] Absolute Neut 6.8 X10 3/uL Normal 2.0-7.7 [facility] Comment on above: Performed By: #### L 500.2500, L100.0100 ####[facility] [address] [place], [address] Basophils/100 WBC (Bld) 0.2 % Normal 0-1 [facility] Comment on above: Performed By: #### L 500.2500, L100.0100 ####[facility] [address] [place], [address] Eosinophils/100 WBC (Bld) 0.5 % Normal 0-5 [facility] Comment on above: Performed By: #### L 500.2500, L100.0100 ####[facility] [address] [place], [address] Erythrocyte distribution width (RBC) [Ratio] 12.0 % Normal 11.6-14.6 [facility] Comment on above: Performed By: #### L 500.2500, L100.0100 ####[facility] [address] [place], [address] Hematocrit (Bld) [Volume fraction] 32.8 % Low 37-47 [facility] Comment on above: Performed By: #### L 500.2500, L100.0100 ####[facility] [address] [place], [address] Hemoglobin (Bld) [Mass/Vol] 11.9 g/dL Low 12.0-15.0 [facility] Comment on above: Performed By: #### L 500.2500, L100.0100 ####[facility] [address] [place], [address] IG% 0.600 Normal 0.0-0.9 [facility] Comment on above: Result Comment: IG% - Immature Granulocytes (promyelocytes, myelocytes and metamyelocytes) > 1% indicates that a LEFT SHIFT is Present. Performed By: #### L 500.2500, L100.0100 ####[facility] [address] [place], [address] Lymphocytes/100 WBC (Bld) 23.5 % Normal 19-41 [facility] Comment on above: Performed By: #### L 500.2500, L100.0100 ####[facility] [address] [place], [address] MCH (RBC) [Entitic mass] 30.6 pg Normal 27.0-32.0 [facility] Comment on above: Performed By: #### L 500.2500, L100.0100 ####[facility] [address] [place], [address] MCHC (RBC) [Mass/Vol] 36.3 g/dL High 32-36 [facility] Comment on above: Performed By: #### L 500.2500, L100.0100 ####[facility] [address] [place], [address] MCV (RBC) [Entitic vol] 84.3 fL Normal 81-99 [facility] Comment on above: Performed By: #### L 500.2500, L100.0100 ####[facility] [address] [place], [address] Monocytes/100 WBC (Bld) 9.3 % Normal 0-10 [facility] Comment on above: Performed By: #### L 500.2500, L100.0100 ####[facility] [address] [place], [address] Neutrophils/100 WBC (Bld) 65.9 % Normal 47-70 [facility] Comment on above: Performed By: #### L 500.2500, L100.0100 ####[facility] [address] [place], [address] Nucleated RBC (Bld) [#/Vol] 0 10*3/uL Normal 0-5 [facility] Comment on above: Performed By: #### L 500.2500, L100.0100 ####[facility] [address] [place], [address] Platelet mean volume (Bld) [Entitic vol] 8.5 fL Normal 6.2-12.0 [facility] Comment on above: Performed By: #### L 500.2500, L100.0100 ####[facility] [address] [place], [address] Platelets (Bld) [#/Vol] 255 10*3/uL Normal 150-450 [facility] Comment on above: Performed By: #### L 500.2500, L100.0100 ####[facility] [address] [place], [address] RBC (Bld) [#/Vol] 3.89 10*6/uL Low 4.2-5.4 [facility] Comment on above: Performed By: #### L 500.2500, L100.0100 ####[facility] [address] [place], [address] RDW SD 36.9 fl Normal 35.1-43.9 [facility] Comment on above: Performed By: #### L 500.2500, L100.0100 ####[facility] [address] [place], [place], [address] WBC (Bld) [#/Vol] 10.2 10*3/uL Normal 4.4-11.0 [facility] Comment on above: Performed By: #### L 500.2500, L100.0100 ####[facility] [address] [place], [address] Discharge Instructionon 11-0 Discharge Instruction [facility] Medical Records Department [address] [place] [address] Instructions for Home/Discharge Instructions 06/13/25 1151 MR#: [id number] Acct: [id number] Name: REINIER MENDOZA Rep #: [id number] : 1970 55 From: Maria Luisa BRENNAN PCP: CARLI AriasC Status:ADM ANSON Discharge Instructions DC O2, CPAP, [...] mcg capsule 1 cap PO DAILY omega 1-zyt-bxk-fish oil [Fish Oil] 1,200 (144-216) mg capsule [...] REGGIE Arroyo; Dr. Kentrell Galindo MD Signed Normal [facility] Lumbar Spine 2 or 3 Viewson 06-13-2025 Lumbar Spine 2 or 3 Views [facility] Imaging Services [address] [place] [address] Lumbar Spine 2 or 3 Views MR#: [id number] Acct: [id number] Name: REINIER MENDOZA Rep #: [id number] : 1970 F 55 From: Bren Alfonso MD PCP: REGGIE Arias Status: ADM ANSON Study: Lumbar Spine 2 or 3 Views Date of Exam: Exam# [id number] Ordering Dr: Maria Luisa Taylor EXAM: XR [...] IMPRESSION: Postoperative changes as above. Reading [facility] CC: REGGIE Arroyo; MIKA Allen Livestock Haulier: Signed Normal [facility] Bedside Glucoseon 06-12-2025 FINGERSTICK GLU 196 mg/dL High [address] [place] [address] Comment on above: Result Comment: PARTH GEMENT OF PATIENT CARE PER NURSING PROTOCOL Performed By: #### L 501.080 #### [facility] [address] [place], [address] FINGERSTICK GLU 231 mg/dL High [address] [place] [address] Comment on above: Result Comment: PARTH GEMENT OF PATIENT CARE PER NURSING PROTOCOL Performed By: #### L 503.6005, M200.1000 #### [facility] [address] [place], [address] FINGERSTICK GLU 151 mg/dL High [address] [place] [address] Comment on above: Result Comment: PARTH GEMENT OF PATIENT CARE PER NURSING PROTOCOL Performed By: #### L 503.6005, M200.1000 #### [facility] [address] [place], [address] Consultation - Hospitaliston 06-12-2025 Consultation - Hospitalist [facility] Medical Records Department [address] [place] [address] Consultation - Hospitalist 06/12/25 1921 MR#: [id number] Acct: [id number] Name: REINIER MENDOZA Rep #: [id number] : 1970 55 From: Olayinka Becker DO PCP: Suzanne Arroyo NP-C Status:ADM ANSON [facility] Assessment Plan Assessment/Plan (1) Lumbar stenosis with neurogenic claudication: PLAN: Plan Patient is a 55-year-old female who presented to [facility] on 06/12/2025 for planned lumbar fusion [...] is a 55 F who presented to [facility] on 06/12/2025 for planned orthopedic procedure. [...] She denied any other acute concerns currently. [facility] Medical History Lumbar stenosis with neurogenic claudication [...] capsule 5 mg PO HS PRN sleep 01/05/2509/03 History bupropion HCl 300 mg 24 hr tablet, 300 mg PO QAM PTSD 30 days #30 t abs 05/23/25 06/11/25 Rx extended release venlafaxine 150 mg 150 mg PO DAILY BIPOLAR 30 days 06/12/25 Rx capsule,extended release 24 hr #30 caps INNO CLEANSE 2 cap PO DAILY FIBER 05/26/25 Unkn own History aripiprazol (more content not included)... Normal [facility] Lumbar Spine 2 or 3 Viewson 06-12-2025 Lumbar Spine 2 or 3 Views [facility] Imaging Services [address] [place] [address] Lumbar Spine 2 or 3 Views MR#: [id number] Acct: [id number] Name: REINIER MENDOZA Rep #: [id number] : 1970 F 55 From: Bren Alfonso MD PCP: REGGIE Arias Status: ADM ANSON Study: Lumbar Spine 2 or 3 Views Date of Exam: Exam# [id number] Ordering Dr: aYir Benedict MD EXAM: XR Lumbosacral Spine, 2 [...] operative note for further details. Reading [facility] CC: DIRECTOR HEDIS-C Suzanne Arroyo; Dr. Yair Benedict MD Livestock Haulier: Signed Normal [facility] MR/POSTOP.ANEon 06-12-2025 MR/POSTOP.[facility] Medical Records Department [address] [place] [address] Anesthesia Postop Eval I 06/12/25 1215 MR#: [id number] Acct: [id number] Name: REINIER MENDOZA Rep #: [id number] : 1970 55 From: Olayinka Quinones CRNA PCP: REGGIE Arias Status:REG SDC Y Race: C Location: [place] [address]- Anesthesia: Postop Eval I Current Vital Signs Temperature: 97.3 F Pulse Rate: 78 Blood Pressure: 137/81 Respiratory Rate: 16 Pulse Ox: 96 Assessment Airway patent: Yes Spontaneous unlabored respirations: Yes nausea: No Vomiting: No Anesthesia Complication: No Fluid Hydration Crystalloid volume administer (ml): 1,700 Total IV fluid infused: 1,700 Progress Note Anesthesia document: Postop Eval 1 completed: Yes 06/12/25 1216 Date Olayinka Quinones ASS[employer]ULT AMPH[employer]OUS VEHICLE OFFICER Cosigner Signature: Date CC: Signed Normal [facility] MR/[id number] 06-12-2025 [facility] Medical Records Department [address] [place] [address] Anesthesia Postop Eval II 06/12/25 1842 MR#: [id number] Acct: [id number] Name: REINIER MENDOZA Manjit Rep #: [id number] : 1970 55 From: Santos Milian CRNA PCP: REGGIE Arias Status:ADM ANSON Y Race: C Location: [place] [id number] Anesthesia Postop Eval I Sum Postop Eval Completion status Anesthesia document: Postop Eval 1 completed: Yes Anesthesia Postop Eval I Summary Anesthesia Postop Eval I Summary: Anesthesia Postop Eval I: Assessment Summary Airway patent Yes 06/12/25 12:15 [employer]ULT AMPH[employer]HICLE OFFICER.ABAR Spontaneous unlabored Yes 06/12/25 12:15 ASSAULT AMPHIBIOUS VEHICLE OFFICER.ABAR respirations Mental status Awake 06/12/25 12:56 nausea No 06/12/25 12:56 Vomiting No 06/12/25 12:56 Anesthesia Postop Eval I: Fluid Summary Crystalloid volume administer 1,700 06/12/25 12:15 [employer]ULT AMPH[employer]OUS VEHICLE OFFICER.ABAR (ml) Colloids volume administered ( ml) Blood Product volume administered (ml) Total IV fluid infused 1,700 06/12/25 12:15 ASSAULT AMPHIBIOUS VEHICLE OFFICER.ABAR Anesthesia Postop Eval I: Summary Notes Anesthesia Complication No 06/12/25 12:15 ASSAULT AMPHIBIOUS VEHICLE OFFICER.ABAR Anesthesia Complication Comment: Post-operative progress note Anesthesia: [...] Complication: No 06/12/25 1844 Date Santos Milian ASSAULT AMPH[employer]OUS VEHICLE OFFICER Cosigner Signature: Date CC: Signed Normal [facility] MR/POSTOPAN2 [facility] Medical Records Department [address] [place] [address] Anesthesia Postop Eval II 06/12/25 1256 MR#: [id number] Acct: [id number] Name: REINIER MENDOZA Rep #: [id number] : 1970 55 From: Alexander Levy MD PCP: REGGIE Arias Status:REG [facility] Y Race: C Location: [facility] Anesthesia Postop Eval I Sum Postop Eval Completion status Anesthesia document: Postop Eval 1 completed: Yes Anesthesia Postop Eval I Summary Anesthesia Postop Eval I Summary: Anesthesia Postop Eval I: Assessment Summary Airway patent Yes 06/12/25 12:15 ASSAULT AMPH[employer]IOUS VEHICLE OFFICER.ABAR Spontaneous unlabored Yes 06/12/25 12:15 ASSAULT AMPHIBIOUS VEHICLE OFFICER.ABAR respirations Mental status nausea No 06/12/25 12:15 ASSAULT AMPHIBIOUS VEHICLE OFFICER.ABAR Vomiting No 06/12/25 12:15 ASSAULT AMPHIBIOUS VEHICLE OFFICER.ABAR Anesthesia Postop Eval I: Fluid Summary Crystalloid volume administer 1,700 06/12/25 12:15 ASSAULT AMPHIBIOUS VEHICLE OFFICER.ABAR (ml) Colloids volume administered ( ml) Blood Product volume administered (ml) Total IV fluid infused 1,700 06/12/25 12:15 ASSAULT AMPHIBIOUS VEHICLE OFFICER.ABAR Anesthesia Postop Eval I: Summary Notes Anesthesia Complication No 06/12/25 12:15 ASSAULT AMPHIBIOUS VEHICLE OFFICER.ABAR Anesthesia Complication Comment: Post-operative progress note Anesthesia: Postop Eval II Evaluation Mental status: Awake Pain Level: 2 nausea: No Vomiting: No 06/12/25 1256 Date Alexander Alfaro Signature: Date CC: Signed [facility] Operative Reporton 5 Operative Report [facility] Medical Records Department [address] [place] [address] Operative Report 06/12/25 1210 MR#: [id number] Acct: [id number] Name: KAYLINKEVONTammie Saravia Rep #: [id number] : 1970 55 From: Yair Benedict MD PCP: REGGIE Arias Status:[facility] Location: [facility]01-1 Procedures Musculoskeletal 20xxx-29xxx: Other Procedure See Report Operative Report (Standard) Operative Information Date of Procedure: 06/12/25 Pre-Operative Diagnosis: L3-4 spondylolisthesis L2-4 disc degeneration, stenosis with neurogenic claudication, prior L4-S1 fusion Post-Operative Diagnosis: Same Surgery/Procedure Performed: L2-4 oblique lumbar interbody fusion, anterior instrumentation take up operator: Yes Palletizer Operator: Maria Luisa Taylor Tasks completed by first grade teacher: Closing, Removing tissue, Implanting device, Hemostasis: Electrocautery [...] lateral decubitus: ??? L2-3 anterolateral spinal fusion 20518 ??? L3-4 anterolateral fusion 51237/51 ??? L2-3 insertion of cage 20213 ??? L3-4 insertion of cage 75309/51 . L2-3 anterior instrumentation 15419 . L3-4 anterior instrumentation 28816/51 ??? Bone graft aspirate left iliac crest [...] muscle fi (more content not included)... [facility] CBC (INCLUDES DIFF/PLT)on Basophils (Bld) [#/Vol] 0.03 10*3/uL Normal 0-200 [facility] Comment on above: Performed By: #### 9 0235, 3025 #### [facility] [address], [address] [place] [address] Laboratory Tester: Fahad Moore MD Basophils/100 WBC (Bld) 0.4 % Normal [facility] Comment on above: Performed By: #### 9 9466, 3710 #### [facility] [address], [address] [place] [address] Laboratory Tester: Fahad Moore MD Eosinophils (Bld) [#/Vol] 0.133 10*3/uL Normal 15-500 [facility] Comment on above: Performed By: #### 9 2665, 6399 #### [facility] of [address], [address] [place] [address] Laboratory Tester: Fahad Moore MD Eosinophils/100 WBC (Bld) 1.8 % Normal [facility] Comment on above: Performed By: #### 9 7255, 6399 #### [facility] of [address], [address] [place] [address] Laboratory Tester: Fahad Moore MD Erythrocyte distribution width (RBC) [Ratio] 13.0 % Normal 11.0-15.0 [facility] Comment on above: Performed By: #### 9 103, 6399 #### [facility] of [address], [address] [place] [address] Laboratory Tester: Fahad Moore MD Hematocrit (Bld) [Volume fraction] 40.3 % Normal 35.0-45.0 [facility] Comment on above: Performed By: #### 9 285, 6399 #### [facility] of [address], [address] [place] [address] Laboratory Tester: Fahad Moore MD Hemoglobin (Bld) [Mass/Vol] 13.6 g/dL Normal 11.7-15.5 [facility] Comment on above: Performed By: #### 9 511, 6399 #### [facility] of [address], [address] [place] [address] Laboratory Tester: Fahad Moore MD Lymphocytes (Bld) [#/Vol] 2.19 10*3/uL Normal 850-3900 [facility] Comment on above: Performed By: #### 9 421, 6399 #### [facility] of [address], [address] [place] [address] Laboratory Tester: Fahad Moore MD Lymphocytes/100 WBC (Bld) 29.6 % Normal [facility] Comment on above: Performed By: #### 9 804, 6399 #### [facility] of [address], [address] [place] [address] Laboratory Tester: Fahad Moore MD MCH (RBC) [Entitic mass] 30.5 pg Normal 27.0-33.0 [facility] Comment on above: Performed By: #### 9 922, 6399 #### [facility] of [place] [address] Laboratory Tester: Fahad Moore MD MCHC (RBC) [Mass/Vol] 33.7 [...] patient's clinical condition. Performed By: #### 9 299, 6399 #### [facility] of [place] [address] Laboratory Tester: Fahad Moore MD MCV (RBC) [Entitic vol] 90.4 fL Normal 80.0-100.0 [facility] Comment on above: Performed By: #### 9 421, 6399 #### [facility] of [place] [address] Laboratory Tester: Fahad Moore MD Monocytes (Bld) [#/Vol] 0.57 10*3/uL Normal 200-950 [facility] Comment on above: Performed By: #### 9 542, 6399 #### [facility] of [place] [address] Laboratory Tester: Fahad Moore MD Monocytes/100 WBC (Bld) 7.7 % Normal [facility] Comment on above: Performed By: #### 9 801, 6399 #### [facility] of [place] [address] Laboratory Tester: Fahad Moore MD Neutrophils (Bld) [#/Vol] 4.477 10*3/uL Normal 0149-5753 [facility] Comment on above: Performed By: #### 9 719, 6399 #### [facility] of [place] [phone] Laboratory Tester: Fahad Moore MD Neutrophils/100 WBC (Bld) 60.5 % Normal [facility] Comment on above: Performed By: #### 9 266, 6399 #### [facility] of [address], [address] [place] [address] Laboratory Tester: Fahad Moore MD Platelet mean volume (Bld) [Entitic vol] 9.4 fL Normal 7.5-12.5 [facility] Comment on above: Performed By: #### 9 266, 6399 #### [facility] of [address], [address] [place] [address] Laboratory Tester: Fahad Moore MD Platelets (Bld) [#/Vol] 311 10*3/uL Normal 140-400 [facility] Comment on above: Performed By: #### 9 266, 6399 #### [facility] of [address], [address] [place] [address] Laboratory Tester: Fahad Moore MD RBC (Bld) [#/Vol] 4.46 10*6/uL Normal 3.80-5.10 [facility] Comment on above: Performed By: #### 9 2665, 6399 #### [facility] of [address], [address] [place] [address] Laboratory Tester: Fahad Moore MD WBC (Bld) [#/Vol] 7.4 10*3/uL Normal 3.8-10.8 [facility] Comment on above: Performed By: #### 9 266, 6399 #### [facility] of [address], [address] [place] [address] Laboratory Tester: Fahad Moore MD COMPREHENSIVE METABOLIC PANE L W/ANION GAPon 06-08-2025 Albumin [Mass/Vol] 4.4 g/dL Normal 3.6-5.1 [facility] Comment on above: Performed By: #### 9 266, 6399 #### [facility] of [address], [address] [place] [address] Laboratory Tester: Fahad Moore MD ALP [Catalytic activity/Vol] 54 U/L Normal 37-153 [facility] Comment on above: Performed By: #### 9 295, 6399 #### [facility] of [place] [address] Laboratory Tester: Fahad Moore MD ALT [Catalytic activity/Vol] 18 U/L Normal 6-29 [facility] Comment on above: Performed By: #### 9 2664, 6399 #### [facility] of [address], [address] [place] [address] Laboratory Tester: Fahad Moore MD AST [Catalytic activity/Vol] 16 U/L Normal 10-35 [facility] Comment on above: Performed By: #### 9 157, 6399 #### [facility] of [place] [address] Laboratory Tester: Fahad Moore MD Bilirubin [Mass/Vol] 0.4 mg/dL Normal 0.2-1.2 [facility] Comment on above: Performed By: #### 9 523, 6399 #### [facility] of [place] [address] Laboratory Tester: Fahad Moore MD Calcium [Mass/Vol] 9.6 mg/dL Normal 8.6-10.4 [facility] Comment on above: Performed By: #### 9 103, 6399 #### [facility] of [address], [address] [place] [address] Laboratory Tester: Fahad Moore MD Chloride [Moles/Vol] 93 mmol/L Low 98-110 [facility] Comment on above: Performed By: #### 9 876, 6399 #### [facility] of [place] [address] Laboratory Tester: Fahad Moore MD CO2 [Moles/Vol] 27 mmol/L Normal 20-32 [facility] Comment on above: Performed By: #### 9 524, 6399 #### [facility] of [address] [place] [address] Laboratory Tester: Fahad Moore MD Creatinine [Mass/Vol] 0.52 mg/dL Normal 0.50-1.03 [facility] Comment on above: Performed By: #### 9 719, 6399 #### [facility] [address], [address] [place] [address] Laboratory Tester: Fahad Moore MD ELECTROLYTE BALANCE 10 mmol/L (calc) Normal 7-17 [facility] Comment on above: Performed By: #### 9 231, 6399 #### [facility] [place] [address] Laboratory Tester: Fahad Moore MD GFR/1.73 sq M.predicted among non-blacks MDRD (S/P/Bld) [Vol rate/Area] 109 mL/min/{1.73_m2} Normal > OR = 60 [facility] Comment on above: Performed By: #### 9 269, 6399 #### [facility] [place] [address] Laboratory Tester: Fahad Moore MD Glucose [Mass/Vol] 144 mg/dL High 65-99 [facility] Comment on above: Result Comment: Fasting reference interval For someone without known diabetes, a glucose value >125 mg/dL indicates that they may have diabetes and this should be confirmed with a follow-up test. Performed By: #### 9 727, 6399 #### [facility] [address], [address] [place] [address] Laboratory Tester: Fahad Moore MD Potassium [Moles/Vol] 4.4 mmol/L Normal 3.5-5.3 [facility] Comment on above: Performed By: #### 9 618, 6399 #### [facility] [place] [address] Laboratory Tester: Fahad Moore MD Protein [Mass/Vol] 7.1 g/dL Normal 6.1-8.1 [facility] Comment on above: Performed By: #### 9 743, 6399 #### [facility] of [facility] [address], [address] [place] [address] Laboratory Tester: Fahad Moore MD Sodium [Moles/Vol] 130 mmol/L Low 135-146 [facility] Comment on above: Performed By: #### 9 4755, 6399 #### [facility] of [facility] [address] [place], [place] [address] Rd, [address] [place] [address] Laboratory Tester: Fahad Moore MD Urea nitrogen [Mass/Vol] 15 mg/dL Normal 7-25 [facility] Comment on above: Performed By: #### 9 2665, 6399 #### [facility] of [address], [address] [place] [address] Laboratory Tester: Fahad Moore MD MR/PAT.JAEon 06-08-2025 MR/PAT.[facility] Medical Records Department [address] [place] [address] PAT - Anesthesia 06/08/25 1632 MR#: [id number] Acct: [id number] Name: REINIER MENDOZA Rep #: [id number] : 1970 55 From: Stephen Martin MD PCP: REGGIE Arias Status:PRE [facility] Y Race: C Location: [facility] Pre-Assessment Diagnosis/Proposed Procedure Planned Operative Procedure(s): 360 LUMBAR FUSION L2-L3 L3-4 WITH REVISION OF POSTERIOR INSTRUMENTATION L2-3 L3-4 L4-5 L5-S1 REMOVAL OF PREVIOUS HARDWARE Anesthesia History 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 - 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 Hx Hospitalization No 05/26/25 10:10 Any Problems [...] take am of surgery PONV 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: 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 Female Yes 05/26/25 10:10 HX of Motion [...] 03/23/25 13:41 Respiratory Assessment Respiratory Assessment - 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: Respiratory Tract Infection Hx - 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 Hx Respiratory Tract Infection No 05/26/25 10:10 STOP Sleep Apnea STOP Sleep Apnea - 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: STOP Sleep Apnea - 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 Hx Hypertension Yes: CONTROLLED WITH MEDS 05/26/25 [...] Tobacco Use History Tobacco Use History - 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: Tobacco Use History - 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 Tobacco Use Smoking Status Former smoker 05/26/25 10:10 Hx Tobacco Use No 05/26/25 10:10 Years Smoking Packs Smoked per Day Smoking Cessation Date was Yes - quit smoking within 15 05/26/25 10:10 within the last 15 years years Hx Smoking Cessation Date 08/10/22 05/26/25 10:10 Hx Smoking Cessation No 05/26/25 10:10 Counseling Hematologic Medial History Hematologic Hx - 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 (more content not included)... [facility] Orthopedic Visit Reporton Orthopedic Visit Report [facility] [address] [place] [address] OFFICE VISIT Date of Service: 06/08/25 MR#: [id number] Acct: [id number] Name: REINIER MENDOZA Manjit Rep #: [id number] : 1970 Provider: Dr. Yair Benedict MD Age/Sex: 55/F Location: [facility] Status: Signed Intake Vital Signs 03/23/25 13:41 [...] mg tablet 15 mg PO QHS BIPOLAR 05/26/2505/12 History diclofenac potassium 50 mg tablet 50 mg PO TID PRN pain 05/26/25 History omega 9-npp-adb-fish oil 1,200 mg 2 cap PO DAILY [...] by me, Dr. Yair Benedict MD 06/08/25 6855. Part of today???s visit was documented by [...] surgery. Hyponatrem (more content not included)... [facility] PROTHROMBIN TIME-INRon 06-08 INR Coag (PPP) [Relative time] 1.0 {INR} Normal [facility] Comment on above: Result Comment: Refe rence Range 0.9-1.1 Moderate-intensity Warfarin Therapy 2.0-3.0 Higher-intensity Warfarin Therapy 3.0-4.0 Performed By: #### 9 2665, 6399 #### [facility] [address], [address] [place], [place] [address] Laboratory Tester: Fahad Moore MD PT Coag (PPP) [Time] 10.2 s Normal 9.0-11.5 [facility] Comment on above: Result Comment: For additional information, please refer to http://education.[employer]/faq/LUY976 (This link is being provided for informational/ educational purposes only.) Performed By: #### 9 2665, 6399 #### [facility] [address], [address] [place], [place] [address] Laboratory Tester: Fahad Moore MD Spine Lumbar without Contras ton 06-08-2025 Spine Lumbar without Contrast [facility] Imaging Services [address] [place], [place] [id number] Spine Lumbar without Contrast MR#: [id number] Acct: [id number] Name: REINIER MENDOZA Manjit Rep #: [id number] : 1970 F 55 From: Fred Santoyo MD PCP: Suzanne Arroyo NP-Jonh Status: REG CLI Study: Spine Lumbar without Contrast Date of Exam: Exam# [id number] Ordering Dr: Yair Benedict MD PROCEDURE: CT [...] the prior MRI from 03/16/2025. Reading Location: [id number] CC: REGGIE Arroyo; Dr. Yair Benedict MD Livestock Haulier: Signed [facility] MRSA/SAID NASAL SCREENon MRSA+SAID SCRN Reason for Exam: Linda lindsey MRSA MRSA Negative S. AUREUS S. aureus PositiveA [facility] Comment on above: Performed By: #### L 501.9985, L100.0100, M100.651, L500.2500, BTSPAT ####[facility] [address] [facility] 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 Hx Hospitalization No 05/26/25 10:10 Any Problems [...] take am of surgery PONV 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: 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 Female Yes 05/26/25 10:10 HX of Motion [...] 03/23/25 13:41 Respiratory Assessment Respiratory Assessment - 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: Respiratory Tract Infection Hx - 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 Hx Respiratory Tract Infection No 05/26/25 10:10 STOP Sleep Apnea STOP Sleep Apnea - 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: STOP Sleep Apnea - 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 Hx Hypertension Yes: CONTROLLED WITH MEDS 05/26/25 [...] Tobacco Use History Tobacco Use History - 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: Tobacco Use History - 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 Tobacco Use Smoking Status Former smoker 05/26/25 10:10 Hx Tobacco Use No 05/26/25 10:10 Years Smoking Packs Smoked per Day Smoking Cessation Date was Yes - quit smoking within 15 05/26/25 10:10 within the last 15 years years Hx Smoking Cessation Date 08/10/22 05/26/25 10:10 Hx Smoking Cessation No 05/26/25 10:10 Counseling Hematologic Medial History Hematologic 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 Normal [facility] 12 Lead EKGon 06-01-2025 12 Lead EKG [facility] Cardiovascular Services [address] [place] [address] 12 Lead EKG 06/01/25 1404 MR#: [id number] Acct: [id number] Name: REINIER MENDOZA Rep #: [id number] : 1970 55 From: Francesco Dorado MD Attending Dr: Dr. Yair Benedict MD Status: PRE IN Ordering Dr: Yair Benedict MD Date: 06/01/25 Location: [facility] Sex: F C Admitted: Test Reason : PREOP Blood Pressure : */* mmHG Vent. Rate : 67 BPM Atrial Rate : 67 BPM P-R Int : 180 ms QRS Dur : 90 ms QT Int : 426 ms P-R-T Axes : 39 -3 40 degrees QTcB Int : 450 ms Normal sinus rhythm Normal ECG Confirmed by Francesco Dorado ([id number]), graphics editor KEVIN SQUIRES ([id number]) on 06/02/2025 7:08:29 AM Referred By: Yair Benedict Confirmed By: Francesco Dorado 06/02/25 0708 Date Francesco Dorado MD CC: DIRECTOR HEDIS-C Suzanne Arroyo; Dr. Yair Benedict MD Signed [facility] Basic Metabolic Profile (BMP )on 06-01-2025 BUN/CRE 25.1 RATIO High 05-29 [facility] Comment on above: Performed By: #### L 501.9985, L100.0100, M100.651, L500.2500, BTSPAT ####[facility] [address] [place], [place], [address] Calcium [Mass/Vol] 9.1 mg/dL Normal 7.6-11.0 [facility] Comment on above: Performed By: #### L 501.9985, L100.0100, M100.651, L500.2500, BTSPAT ####[facility] [address] [place], [address] Chloride [Moles/Vol] 95 mmol/L Low 98-108 [facility] Comment on above: Performed By: #### L 501.9985, L100.0100, M100.651, L500.2500, BTSPAT ####[facility] [address] [place], [address] CO2 [Moles/Vol] 18.6 mmol/L Low 21.0-32.0 [facility] Comment on above: Performed By: #### L 501.9985, L100.0100, M100.651, L500.2500, BTSPAT ####[facility] [address] [place], [address] Creatinine [Mass/Vol] 0.53 mg/dL Low 0.70-1.20 [facility] Comment on above: Performed By: #### L 501.9985, L100.0100, M100.651, L500.2500, BTSPAT ####[facility] [address] [place], [address] GAP 14 Normal 5-15 [facility] Comment on above: Performed By: #### L 501.9985, L100.0100, M100.651, L500.2500, BTSPAT ####[facility] [address] [place], [address] GFR/1.73 sq M.predicted among non-blacks MDRD (S/P/Bld) [Vol rate/Area] 109 mL/min/{1.73_m2} Normal >60 [facility] Comment on above: Result Comment: mL/m in/1.73m2 CKD-EPI Creatinine Equation (2020) Performed By: #### L 501.9985, L100.0100, M100.651, L500.2500, BTSPAT ####[facility] [address] [place], [address] Glucose [Mass/Vol] 135 mg/dL High 70-99 [facility] Comment on above: Performed By: #### L 501.9985, L100.0100, M100.651, L500.2500, BTSPAT ####[facility] [address] [place], [address] Potassium [Moles/Vol] 4.4 mmol/L Normal 3.3-5.1 [facility] Comment on above: Performed By: #### L 501.9985, L100.0100, M100.651, L500.2500, BTSPAT ####[facility] [address] [place], [address] Sodium [Moles/Vol] 128 mmol/L Low 133-145 [facility] Comment on above: Performed By: #### L 501.9985, L100.0100, M100.651, L500.2500, BTSPAT ####[facility] [address] [place], [address] Urea nitrogen [Mass/Vol] 13 mg/dL Normal 4-19 [facility] Comment on above: Performed By: #### L 501.9985, L100.0100, M100.651, L500.2500, BTSPAT ####[facility] [address] [place], [address] CBC W/Diff, Automatedon 10-2 3-2024 Absolute Lymph 2.20 X10 3/uL Normal 0.83-4.51 [facility] Comment on above: Performed By: #### L 501.9985, L100.0100, M100.651, L500.2500, BTSPAT #### [facility] [address] [place], [address] Absolute Neut 4.1 X10 3/uL Normal 2.0-7.7 [facility] Comment on above: Performed By: #### L 501.9985, L100.0100, M100.651, L500.2500, BTSPAT #### [facility] [address] [place], [address] Basophils/100 WBC (Bld) 0.4 % Normal 0-1 [facility] Comment on above: Performed By: #### L 501.9985, L100.0100, M100.651, L500.2500, BTSPAT #### [facility] [address] [place], [address] Eosinophils/100 WBC (Bld) 1.7 % Normal 0-5 [facility] Comment on above: Performed By: #### L 501.9985, L100.0100, M100.651, L500.2500, BTSPAT #### [facility] [address] [place], [address] Erythrocyte distribution width (RBC) [Ratio] 12.3 % Normal 11.6-14.6 [facility] Comment on above: Performed By: #### L 501.9985, L100.0100, M100.651, L500.2500, BTSPAT #### [facility] [address] [place], [address] Hematocrit (Bld) [Volume fraction] 37.0 % Normal 37-47 [facility] Comment on above: Performed By: #### L 501.9985, L100.0100, M100.651, L500.2500, BTSPAT #### [facility] [address] [place], [address] Hemoglobin (Bld) [Mass/Vol] 13.3 g/dL Normal 12.0-15.0 [facility] Comment on above: Performed By: #### L 501.9985, L100.0100, M100.651, L500.2500, BTSPAT #### [facility] [address] [place], [address] IG% 0.600 Normal 0.0-0.9 [facility] Comment on above: Result Comment: IG% - Immature Granulocytes (promyelocytes, myelocytes and metamyelocytes) > 1% indicates that a LEFT SHIFT is Present. Performed By: #### L 501.9985, L100.0100, M100.651, L500.2500, BTSPAT #### [facility] [address] [place], [address] Lymphocytes/100 WBC (Bld) 30.9 % Normal 19-41 [facility] Comment on above: Performed By: #### L 501.9985, L100.0100, M100.651, L500.2500, BTSPAT #### [facility] [address] [place], [address] MCH (RBC) [Entitic mass] 30.5 pg Normal 27.0-32.0 [facility] Comment on above: Performed By: #### L 501.9985, L100.0100, M100.651, L500.2500, BTSPAT #### [facility] [address] [place], [address] MCHC (RBC) [Mass/Vol] 35.9 g/dL Normal 32-36 [facility] Comment on above: Performed By: #### L 501.9985, L100.0100, M100.651, L500.2500, BTSPAT #### [facility] [address] [place], [address] MCV (RBC) [Entitic vol] 84.9 fL Normal 81-99 [facility] Comment on above: Performed By: #### L 501.9985, L100.0100, M100.651, L500.2500, BTSPAT #### [facility] [address] [place], [address] Monocytes/100 WBC (Bld) 8.7 % Normal 0-10 [facility] Comment on above: Performed By: #### L 501.9985, L100.0100, M100.651, L500.2500, BTSPAT #### [facility] [address] [place], [address] Neutrophils/100 WBC (Bld) 57.7 % Normal 47-70 [facility] Comment on above: Performed By: #### L 501.9985, L100.0100, M100.651, L500.2500, BTSPAT #### [facility] [address] [place], [address] Nucleated RBC (Bld) [#/Vol] 0 10*3/uL Normal 0-5 [facility] Comment on above: Performed By: #### L 501.9985, L100.0100, M100.651, L500.2500, BTSPAT #### [facility] [address] [place], [address] Platelet mean volume (Bld) [Entitic vol] 9.1 fL Normal 6.2-12.0 [facility] Comment on above: Performed By: #### L 501.9985, L100.0100, M100.651, L500.2500, BTSPAT #### [facility] [address] [place], [address] Platelets (Bld) [#/Vol] 297 10*3/uL Normal 150-450 [facility] Comment on above: Performed By: #### L 501.9985, L100.0100, M100.651, L500.2500, BTSPAT #### [facility] [address] [place], [address] RBC (Bld) [#/Vol] 4.36 10*6/uL Normal 4.2-5.4 [facility] Comment on above: Performed By: #### L 501.9985, L100.0100, M100.651, L500.2500, BTSPAT #### [facility] [address] [place], [address] RDW SD 37.7 fl Normal 35.1-43.9 [facility] Comment on above: Performed By: #### L 501.9985, L100.0100, M100.651, L500.2500, BTSPAT #### [facility] [address] [place], [address] WBC (Bld) [#/Vol] 7.1 10*3/uL Normal 4.4-11.0 [facility] Comment on above: Performed By: #### L 501.9985, L100.0100, M100.651, L500.2500, BTSPAT #### [facility] [address] [place], [address] Hemoglobin A1con 06-01-2025 HbA1c (Bld) [Mass fraction] 6.4 % High <=5.6 [facility] Comment on above: Result Comment: Norm al < 5.7 % Prediabetic 5.7 - 6.4 % Diabetic >or= 6.5 % Please note range changes. Performed By: #### L 501.9985, L100.0100, M100.651, L500.2500, BTSPAT #### [facility] [address] [place], [address] Magnesiumon 06-01-2025 Magnesium [Mass/Vol] 1.8 mg/dL Normal 1.5-2.2 [facility] Comment on above: Performed By: #### L 503.6005, M200.1000 #### [facility] [address] [place], [address] Type AND Screen - PAT ONLYon 06-01-2025 ABO and Rh group Nom (Bld) Blood group O Rh(D) positive Normal [facility] Comment on above: Order Comment: Surge ry Date: 06/12/25Reason for Laboratory Test [id number] LUMBAR FUSION Performed By: #### L 501.9985, L100.0100, M100.651, L500.2500, BTSPAT ####[facility] [address] [place], [address] MR/BMS.BPon 05-23-2025 MR/BMS.BP [address], [address] [place] [address] OFFICE VISIT Date of Service: 05/23/25 MR#: [id number] Acct: [id number] Name: REINIER MENDOZA Rep #: [id number] : 1970 Provider: Dr. Demario Jin se, DO Age/Sex: 55/F Location: [facility].BPV Status: Signed Intake Vital Signs 03/23/25 13:41 05/23/25 13:49 Height 5 ft 6.5 in 5 ft 6.5 in Weight: 235 lb 2 oz BMI 37.3 BP Intake Visit Reasons: 2-3mfu Allergies azithromycin Allergy (Mild, Verified 03/23/25 13:45) Hives Sulfa (Sulfonamide Antibiotics) Allergy (Mild, Verified 03/23/25 13:45) Other [facility] Medical History (Updated 03/23/25 @ 14:22 by [...] intake: current alcohol intake frequency: other details: Marc 3-4 a year substance use type: does [...] drive for about 3-4 weeks. Mood is pretty good. Recently started a supplement that her son [...] regular volume and regular prosody Mood other (All right) Affect constricted Thought Process linear, logical and [...] BID 60 (more content not included)... Normal [facility] COMPREHENSIVE METABOLIC PANE L W/ANION GAPon 04-20-2025 Albumin [Mass/Vol] 4.4 g/dL Normal 3.6-5.1 [facility] Comment on above: Performed By: #### 1 9342, 73389, 23223 #### [facility] [place] [address] Laboratory Tester: Fahad Moore MD ALP [Catalytic activity/Vol] 51 U/L Normal 37-153 [facility] Comment on above: Performed By: #### 1 6802, 34552, 22996 #### [facility] [place] [address] Laboratory Tester: Fahad Moore MD ALT [Catalytic activity/Vol] 23 U/L Normal 6-29 [facility] Comment on above: Performed By: #### 1 6802, 00904, 19911 #### [facility] [place] [address] Laboratory Tester: Fahad Moore MD AST [Catalytic activity/Vol] 21 U/L Normal 10-35 [facility] Comment on above: Performed By: #### 1 5552, 65061, 69327 #### [facility] [place] [address] Laboratory Tester: Fahad Moore MD Bilirubin [Mass/Vol] 0.3 mg/dL Normal 0.2-1.2 [facility] Comment on above: Performed By: #### 1 6801, 92708, 75898 #### [facility] [place] [address] Laboratory Tester: Fahad Moore MD Calcium [Mass/Vol] 9.6 mg/dL Normal 8.6-10.4 [facility] Comment on above: Performed By: #### 1 6801, 75243, 30715 #### [facility] [place] [address] Laboratory Tester: Fahad Moore MD Chloride [Moles/Vol] 92 mmol/L Low 98-110 [facility] Comment on above: Performed By: #### 1 6801, , 60222 #### [facility] [place] [address] Laboratory Tester: Fahad Moore MD CO2 [Moles/Vol] 25 mmol/L Normal 20-32 [facility] Comment on above: Performed By: #### 1 6801, , 00334 #### [facility] [place] [address] Laboratory Tester: Fahad Moore MD Creatinine [Mass/Vol] 0.47 mg/dL Low 0.50-1.03 [facility] Comment on above: Performed By: #### 1 6801, , 29259 #### [facility] [place] [address] Laboratory Tester: Fahad Moore MD ELECTROLYTE BALANCE 10 mmol/L (calc) Normal 7-17 [facility] Comment on above: Performed By: #### 1 6801, 37476, 29310 #### [facility] [place] [address] Laboratory Tester: Fahad Moore MD GFR/1.73 sq M.predicted among non-blacks MDRD (S/P/Bld) [Vol rate/Area] 112 mL/min/{1.73_m2} Normal > OR = 60 [facility] Comment on above: Performed By: #### 1 6802, 78761, 43546 #### [facility] [place] [address] Laboratory Tester: Fahad Moore MD Glucose [Mass/Vol] 117 mg/dL High 65-99 [facility] Comment on above: Result Comment: Fasting reference interval For someone without known diabetes, a glucose value between 100 and 125 mg/dL is consistent with prediabetes and should be confirmed with a follow-up test. Performed By: #### 1 2, 74006, 94036 #### [facility] [place] [address] Laboratory Tester: Fahad Moore MD Potassium [Moles/Vol] 4.4 mmol/L Normal 3.5-5.3 [facility] Comment on above: Performed By: #### 1 6801, , 46434 #### [facility] [place] [address] Laboratory Tester: Fahad Moore MD Protein [Mass/Vol] 7.2 g/dL Normal 6.1-8.1 [facility] Comment on above: Performed By: #### 1 6801, 74502, 19919 #### [facility] [place] [address] Laboratory Tester: Fahad Moore MD Sodium [Moles/Vol] 127 mmol/L Low 135-146 [facility] Comment on above: Performed By: #### 1 6801, 62395, 15382 #### [facility] [place] [address] Laboratory Tester: Fahad Moore MD Urea nitrogen [Mass/Vol] 21 mg/dL Normal 7-25 [facility] Comment on above: Performed By: #### 1 6801, 96884, 77120 #### [facility] [place] [address] Laboratory Tester: Fahad Moore MD HEMOGLOBIN A1c WITH eAGon eAG (mmol/L) 9.0 mmol/L Normal [facility] Comment on above: Performed By: #### 1 6802, 45770, 51412 #### [facility] [place] [address] Laboratory Tester: Fahad Moore MD HbA1c (Bld) [Mass fraction] [...] diabetes for children. Performed By: #### 1 6802, 82550, 77024 #### [facility] [place] [address] Laboratory Tester: Fahad Moore MD Magnesium [Mass/Vol] 163 mg/dL Normal [facility] Comment on above: Performed By: #### 1 6802, 46360, 39685 #### [facility] [place] [address] Laboratory Tester: Fahad Moore MD TSH W/REFLEX TO FT4on 2024 TSH W/REFLEX TO FT4 Normal [facility] Comment on above: Performed By: #### 1 6802, 90755, 47154 #### [facility] [place] [address] Laboratory Tester: Fahad Moore MD Orthopedic Visit Reporton Orthopedic Visit Report [facility] [address] [place] [address] OFFICE VISIT Date of Service: 03/23/25 MR#: [id number] Acct: [id number] Name: REINIER MENDOZA Rep #: [id number] : 1970 Provider: Dr. Yair Benedict MD Age/Sex: 55/F Location: [facility].ERWIN Status: Signed Intake Vital Signs 01/05/25 14:26 [...] you fallen in the past year?: Yes [facility] Medical History (Updated 03/23/25 @ 14:22 by Karen Henry, CALDERON) Lumbar stenosis Sleep apnea Cervical radiculopathy Insomnia [...] pain in (more content not included)... Normal [facility] Spine Cervical (Routine)on 0 03-16-2025 Spine Cervical (Routine) [facility] [address] [place] [address] Spine Cervical (Routine) MR#: [id number] Acct: [id number] Name: REINIER MENDOZA Rep #: [id number] : 1970 F 55 From: Jim Ochoa MD PCP: REGGIE Arias Status: REG CLI Study: Spine Cervical (Routine) Date of Exam: Exam# [id number] Ordering Dr: Yair Benedict MD PROCEDURE: SPINE [...] C6-C7. No significant canal stenosis. Reading Location: [facility] CC: DIRECTOR HEDIS-C Suzanne Arroyo; Dr. Yair Benedict MD Livestock Haulier: Signed Normal [facility] Spine Lumbar (Routine)on Spine Lumbar (Routine) [facility] [address] [place] [address] Spine Lumbar (Routine) MR#: [id number] Acct: [id number] Name: REINIER MENDOZA Manjit Rep #: [id number] : 1970 F 55 From: Jim Ochoa MD PCP: Suzanne Arroyo, CARLIC Status: REG CLI Study: Spine Lumbar (Routine) Date of Exam: 03/16/25 Exam# [id number] Ordering Dr: Yair Benedict MD PROCEDURE: SPINE [...] of the canal at L2-L3. Reading Location: [facility] CC: REGGIE Arroyo; Dr. Yair Benedict MD Livestock Haulier: Signed Normal [facility] MR/BMS.BPon 03-07-2025 MR/BMS.BP [address], [address] [place] [address] OFFICE VISIT Date of Service: 03/07/25 MR#: [id number] Acct: [id number] Name: REINIER MENDOZA Rep #: [id number] : 1970 Provider: Dr. Demario Jin se, DO Age/Sex: 55/F Location: [facility].BPV Status: Signed Intake Vital Signs 01/05/25 14:26 03/07/25 16:21 Height 5 ft 6.5 in 5 ft 6.5 in BP Intake Visit Reasons: 2 M FU Allergies azithromycin Allergy (Mild, Verified 09/27/24 13:55) Hives Sulfa (Sulfonamide Antibiotics) Allergy (Mild, Verified 09/27/24 13:55) Other [facility] Medical History (Updated 02/24/25 @ 12:13 by Karen Henry, CALDER[place]) Cervical radiculopathy Insomnia PTSD (post-traumatic stress disorder) [...] visit. Patient reports that she has been alright, just tired. Patient reports that her sleep has been [...] unspecified bupropion (more content not included)... Normal [facility] L/S Spine Min 4 Views02-07 L/S Spine Min 4 Views [facility] [address] [facility] [place], [place] [address] L/S Spine Min 4 Views MR#: [id number] Acct: [id number] Name: REINIER MENDOZA Manjit Rep #: [id number] : 1970 F 55 From: Heidi Akers PCP: REGGIE Arias Status: DEP AMB Study: L/S Spine Min 4 Views Date of Exam: 02/24/25 Exam# [id number] Ordering Dr: Maria Luisa Taylor PROCEDURE: L/S [...] changes of the lumbar spine. Reading Location: [facility] CC: REGGIE Arroyo; MIKA Allen Livestock Haulier: Signed Normal [facility] Orthopedic Visit Reporton Orthopedic Visit Report [facility] [address] [place] [address] [address] [place] [address] OFFICE VISIT Date of Service: 02/24/25 MR#: [id number] Acct: [id number] Name: REINIER MENDOZA Rep #: [id number] : 1970 Provider: Dr. Yair Benedict MD Age/Sex: 55/F Location: [facility].ERWIN Status: Signed Intake Vital Signs 01/05/25 14:26 [...] History (Updated 02/24/25 @ 12:13 by Karen Henry, CALDER[place]) Cervical radiculopathy Insomnia PTSD (post-traumatic stress disorder) [...] levels, r (more content not included)... Normal [facility] Hemoglobin A1con 02-03-2025 HbA1c (Bld) [Mass fraction] 7.0 % High <=5.6 [facility] Comment on above: Result Comment: Norm al < 5.7 % Prediabetic 5.7 - 6.4 % Diabetic >or= 6.5 % Please note range changes. Performed By: #### L 503.1210, M200.1000 #### [facility] [place], [address] MR/BMS.BPon 01-05-2025 MR/BMS.[address], [address] [place] [address] OFFICE VISIT Date of Service: 01/05/25 MR#: [id number] Acct: [id number] Name: REINIER MENDOZA Rep #: [id number] : 1970 Provider: Dr. Demario Jin se, DO Age/Sex: 54/F Location: [facility] Status: Signed Intake Vital Signs 11/23/24 15:37 01/05/25 14:26 Height 5 ft 6.5 in 5 ft 6.5 in BP Intake Visit Reasons: 6 wk FU Allergies azithromycin Allergy (Mild, Verified 09/27/24 13:55) Hives Sulfa (Sulfonamide Antibiotics) Allergy (Mild, Verified 09/27/24 13:55) Other [facility] Medical History (Updated 06/08/24 @ 10:22 by [...] visit. Patient reports that she has been alright, but tired. Son is supposed to be seeing a [...] mg and magnesium supplement. Does overall feel ok. Still has some poor motivation intermittently, specifically [...] to o (more content not included)... Normal [facility] Hemoglobin A1con 12-13-2024 HbA1c (Bld) [Mass fraction] 8.0 % High <=5.6 [facility] Comment on above: Result Comment: Norm al < 5.7 % Prediabetic 5.7 - 6.4 % Diabetic >or= 6.5 % Please note range changes. Performed By: #### L 503.6005, M200.1000 #### [facility] [address] [place], [place], [address] MR/BMS.BPon 11-23-2024 MR/BMS.BP [address], [address] [place] [address] OFFICE VISIT Date of Service: 11/23/24 MR#: [id number] Acct: [id number] Name: REINIER MENDOZA Rep #: [id number] : 1970 Provider: Dr. Demario Jin se, DO Age/Sex: 54/F Location: [facility].BPV Status: Signed Intake Vital Signs 09/27/24 13:52 [...] Antibiotics) Allergy (Mild, Verified 09/27/24 13:55) Other [facility] Medical History (Updated 06/08/24 @ 10:22 by [...] intake: current alcohol intake frequency: other details: Marc 3-4 a year substance use type: does [...] effects incl (more content not included)... Normal [facility] BI TRANSFER OF OUTSIDE FILMS on 10-24-2024 BI TRANSFER OF OUTSIDE FILMS Outside images for comparison or treatment purposes, not interpreted by Radiologists. Normal [facility] Study Interpretation of outs iwona studyon 10-24-2024 Outside images for comparison or treatment purposes, not interpreted by Radiologists. IMAGING MR/BMS.BPon 10-13-2024 MR/BMS.[address], [address] [place] [address] OFFICE VISIT Date of Service: 10/13/24 MR#: [id number] Acct: [id number] Name: REINIER MENDOZA Rep #: [id number] : 1970 Provider: Dr. Demario Jin se, DO Age/Sex: 54/F Location: [facility].BPV Status: Signed Intake Vital Signs 09/27/24 13:52 10/13/24 15:09 Height 5 ft 6.5 in 5 ft 6.5 in Weight: 236 lb BMI 37.5 BP 151/85 H Blood Pressure Location Lt brachial Position Sitting Respiration 16 Pulse 97 Pulse Source Monitor BP Intake Visit Reasons: acute visit Allergies azithromycin Allergy (Mild, Verified 09/27/24 13:55) Hives Sulfa (Sulfonamide Antibiotics) Allergy (Mild, Verified 09/27/24 13:55) Other [facility] Medical History (Updated 06/08/24 @ 10:22 by [...] didn't cost a significant amount of money. [place] like she Had to have the couch. Does feel like he thoughts [...] aripiprazole 7.5 m (more content not included)... [facility] BI MAMMO BILATERAL SCREENING TOMOSYNTHESISon 10-11-2024 BI MAMMO BILATERAL SCREENING TOMOSYNTHESIS Interpreted By: Cricket Whelan, STUDY: BI MAMMO BILATERAL SCREENING TOMOSYNTHESIS; 10/11/2024 2:22 pm ACCESSION NUMBER(S): [id number] ORDERING CLINICIAN: SUZANNE ARROYO INDICATION: Screening. COMPARISON: [...] Year. Laterality: Bilateral. MACRO: None Signed by: Cricekt Whelan 10/20/2024 8:42 AM Dictation workstation: [id number] [facility] MR/BMS.BPon 09-27-2024 MR/BMS.BP [facility] [address] [facility], [address] [place] [address] OFFICE VISIT Date of Service: 09/27/24 MR#: [id number] Acct: [id number] Name: REINIER MENDOZA Rep #: [id number] : 1970 Provider: Dr. Demario Jin se, DO Age/Sex: 54/F Location: [facility].BP Status: Signed Intake Vital Signs 07/26/24 11:17 [...] urinary urge (more content not included)... Normal [facility] MR/BMS.BPon 07-26-2024 MR/BMS.[address], [address] [place] [address] OFFICE VISIT Date of Service: 07/26/24 MR#: [id number] Acct: [id number] Name: REINIER MENDOZA Rep #: [id number] : 1970 Provider: Dr. Demario Jin se, DO Age/Sex: 54/F Location: [facility].BPV Status: Signed Intake Vital Signs 05/26/24 13:04 07/26/24 11:17 Height 5 ft 6.5 in 5 ft 6.5 in BP Intake Visit Reasons: 2 M FU Allergies azithromycin Allergy (Mild, Verified 12/17/23 13:29) Hives Sulfa (Sulfonamide Antibiotics) Allergy (Mild, Verified 12/17/23 13:29) Other [facility] Medical History (Updated 06/08/24 @ 10:22 by [...] visit. Patient reports that she has been tired. About every 2-3 nights will sleep well and other nights will sleeps much worse. Even with Lunesta doesn't feel like she noticed a significant improvement in sleep. Has even tried a THC pen and felt it helped for a few nights then stopped working. Does feel ok when she gets a good night sleep. [...] regular volume and regular prosody Mood other (Tired) Affect full range Thought Process linear, logical [...] Bipolar disorde (more content not included)... Normal [facility] Bacteria identifiedon 2023 Bacteria identified Cx Nom (U) Test: Urine Culture Specimen Source: Clean Catch/Voided Specimen Type: Urine Specimen Date: 07/08/2024 1051 Result Date: 07/11/2024925 Result Status: Final result Abnormal: Yes Resulting Lab: [facility] [address] [place] [address] CULTURE >=100,000 CFU/mL Klebsiella pneumoniae/variicola (Abnormal) SUSCEPTIBILITY Klebsiella pneumoniae/variicola METHOD MICROSCAN - AMOXICILLIN/CLAVULANATE <=8/4 ug/ml Susceptible AMPICILLIN >16.000 ug/ml Resistant AMPICILLIN/SULBACTAM <=4/2 ug/ml Susceptible CEFAZOLIN <=2 ug/ml Susceptible CEFAZOLIN (UNCOMPLICATED UTIS ONLY) <=2 ug/ml Susceptible CIPROFLOXACIN <=0.250 ug/ml Susceptible GENTAMICIN <=2.000 ug/ml Susceptible NITROFURANTOIN <=32 ug/ml Susceptible PIPERACILLIN/TAZOBACTAM <=8.000 ug/ml Susceptible TRIMETHOPRIM/SULFAMETHOXA ZOLE <=2/38 ug/ml Susceptible Abnormal [facility] Comment on above: Performed By: #### 6 30-4 #### ANTONIETA Wagner ([id number]) [facility] ([facility]) [address] [place] [address] POCT UA Automated manually r esultedOrdered By: Tashi Mays on 07-08-2024 Appearance (U) Cloudy Abnormal Clear [facility] Glucose Test strip (U) [Mass/Vol] 100 (1+) Abnormal NEGATIVE mg/dl [facility] Hemoglobin Ql (U) Negative NEGATIVE [facility] Interpretation and review of laboratory results Abnormal [facility] Leukocyte esterase Test strip Ql (U) SMALL (1+) Abnormal NEGATIVE [facility] Nitrite Ql (U) Positive Abnormal NEGATIVE [facility] pH (U) 6.5 [pH] No Reference Range Established [facility] POC Bilirubin, Urine Negative NEGATIVE [facility] POC Color, Urine Yellow Straw, Yellow, Light-Yellow [facility] POC Ketones, Urine Negative NEGATIVE mg/dl [facility] POC Protein, Urine 300 (3+) Abnormal NEGATIVE, 30 (1+) mg/dl [facility] POC Specific [place], Urine 1.020 1.005 - 1.035 [facility] POC Urobilinogen, Urine 0.2 0.2, 1.0 EU/DL [facility] Basic metabolic 2000 panelon 06-20-2024 Anion gap [Moles/Vol] 12 mmol/L Normal 10-20 [facility] Comment on above: Performed By: #### 2 4321-2 #### VELIA HAUSER ([id number]) [facility] ([facility]) [facility] [place] [address] Calcium [Mass/Vol] 9.2 mg/dL Normal 8.6-10.3 [facility] Comment on above: Performed By: #### 2 4321-2 #### VELIA HAUSER ([id number]) [facility] ([facility]) [address] [place] [address] Chloride [Moles/Vol] 98 mmol/L Normal 98-107 [facility] Comment on above: Performed By: #### 2 4321-2 #### VELIA HAUSER ([id number]) [facility] ([facility]) [address] [place] [address] CO2 [Moles/Vol] 25 mmol/L Normal 21-32 [facility] Comment on above: Performed By: #### 2 4321-2 #### VELIA HAUSER ([id number]) [facility] ([facility]) [address] [place] [address] Creatinine [Mass/Vol] 0.52 mg/dL Normal 0.50-1.05 [facility] Comment on above: Performed By: #### 2 4321-2 #### VELIA HAUSER ([id number]) [facility] ([facility]) [address] [place] [address] GFR/1.73 sq M.predicted MDRD (S/P/Bld) [Vol rate/Area] mL/min/{1.73_m2} Normal >60 [facility] Comment on above: Result Comment: Calc ulations of estimated GFR are performed using the 2020 CKD-EPI Study Refit equation without the race variable for the IDMS-Traceable creatinine methods. https://jasn.asnjournals.org/content/early/ASN.1101043 988 Performed By: #### 2 4321-2 #### VELIA HAUSER ([id number]) [facility] ([facility]) [address] [place] [address] Glucose [Mass/Vol] 185 mg/dL High 74-99 [facility] Comment on above: Performed By: #### 2 4321-2 #### VELIA HAUSER ([id number]) [facility] ([facility]) [facility] [place] [address] Potassium [Moles/Vol] 4.3 mmol/L Normal 3.5-5.3 [facility] Comment on above: Performed By: #### 2 4321-2 #### VELIA HAUSER ([id number]) [facility] ([facility]) [address] [place] [address] Sodium [Moles/Vol] 131 mmol/L Low 136-145 [facility] Comment on above: Performed By: #### 2 4321-2 #### VELIA HAUSER ([id number]) [facility] ([facility]) [address] [place] [address] Urea nitrogen [Mass/Vol] 12 mg/dL Normal 6-23 [facility] Comment on above: Performed By: #### 2 4321-2 #### VELIA HAUSER ([id number]) [facility] ([facility]) [address] [place] [address] HbA1c (Bld) [Mass fraction]o n 06-20-2024 Average glucose Estimated from glycated hemoglobin (Bld) [Mass/Vol] 146 mg/dL Normal Not Established [facility] Comment on above: Order Comment: Diagn osis of Diabetes-Adults Non-Diabetic: < or = 5.6% Increased risk for developing diabetes: 5.7-6.4% Diagnostic of diabetes: > or = 6.5% Performed By: #### 4 548-4 #### ANTONIETA Wagner ([id number]) [facility] ([facility]) [address] [place] [address] Hemoglobin A1c/Hemoglobin.to zulema 06-20-2024 HbA1c (Bld) [Mass fraction] 6.7 % High See comment [facility] Comment on above: Order Comment: Diagn osis of Diabetes-Adults Non-Diabetic: < or = 5.6% Increased risk for developing diabetes: 5.7-6.4% Diagnostic of diabetes: > or = 6.5% Performed By: #### 4 548-4 #### ANTONIETA Wagner ([id number]) [facility] ([facility]) [address] [place] [address] Basic metabolic 2000 panelon 06-17-2024 Anion gap [Moles/Vol] 12 mmol/L 10 - 20 mmol/L [facility] Calcium [Mass/Vol] 9 mg/dL 8.6 - 10. 3 mg/dL [facility] Chloride [Moles/Vol] 93 mmol/L Low 98 - 10 7 mmol/L [facility] CO2 [Moles/Vol] 24 mmol/L 21 - 32 mmol/L [facility] Creatinine [Mass/Vol] 0.58 mg/dL 0.50 - 1.05 mg/dL [facility] eGFR - PINF [facility] Comment on above: Calculations of nick mated GFR are performed using the 2020 CKD-EPI Study Refit equation without the race variable for the IDMS-Traceable creatinine methods. https://jasn.asnjournals.org/content/early//ASN.3727356 988 Glucose [Mass/Vol] 151 mg/dL High 74 - 99 mg/dL [facility] Interpretation and review of laboratory results Abnormal [facility] Potassium [Moles/Vol] 4.1 mmol/L 3.5 - 5.3 mmol/L [facility] Sodium [Moles/Vol] 125 mmol/L Low 136 - 145 mmol/L [facility] Urea nitrogen [Mass/Vol] 15 mg/dL 6 - 23 mg/dL [facility] CBC W Auto Differential pane l (Bld)on 06-17-2024 Basophils (Bld) [#/Vol] 0.02 10*3/uL [facility] [facility] Bas[facility]/100 WBC (Bld) 0.3 % 0.0 - 2.0 % [facility] Eosinophils (Bld) [#/Vol] 0.03 10*3/uL [facility] Eosinophils/100 WBC (Bld) 0.5 % 0.0 - 6.0 % [facility] Erythrocyte distribution width (RBC) [Ratio] 12.9 % 11.5 - 14.5 % [facility] Hematocrit (Bld) [Volume fraction] 34.9 % Low 36.0 - 46.0 % [facility] Hemoglobin (Bld) [Mass/Vol] 12.3 g/dL 12.0 - 16.0 g/dL [facility] Immature granulocytes (Bld) [#/Vol] 0.04 10*3/uL [facility] Immature granulocytes/100 WBC (Bld) 0.6 % 0.0 - 0.9 % [facility] Comment on above: Immature Granulocyte Count (IG) includes promyelocytes, myelocytes and metamyelocytes but does not include bands. Percent differential counts (%) should be interpreted in the context of the absolute cell counts (cells/UL). Interpretation and review of laboratory results Abnormal [facility] Lymphocytes (Bld) [#/Vol] 1.39 10*3/uL [facility] Lymphocytes/100 WBC (Bld) 22 % 13.0 - 44.0 % [facility] MCH (RBC) [Entitic mass] 29.6 pg 26.0 - 34.0 pg [facility] MCHC (RBC) [Mass/Vol] 35.2 g/dL 32.0 - 36.0 g/dL [facility] MCV (RBC) [Entitic vol] 84 fL 80 - 100 fL [facility] Monocytes (Bld) [#/Vol] 0.58 10*3/uL [facility] Monocytes/100 WBC (Bld) 9.2 % 2.0 - 10.0 % [facility] Neutrophils (Bld) [#/Vol] 4.25 10*3/uL [facility] Comment on above: Percent differential counts (%) should be interpreted in the context of the absolute cell counts (cells/uL). Neutrophils/100 WBC (Bld) 67.4 % 40.0 - 80.0 % [facility] Nucleated RBC/100 WBC (Bld) [Ratio] 0 % [facility] Platelets (Bld) [#/Vol] 215 10*3/uL [facility] RBC (Bld) [#/Vol] 4.15 10*6/uL [facility] WBC (Bld) [#/Vol] 6.3 10*3/uL [facility] CT Abdomen and Pelvis W cont [...] Bren Banks 06/17/2024 1:55 PM Dictation workstation: [id number] [facility] Interpreted By: Bren Wall, STUDY: CT ABDOMEN PELVIS W IV CONTRAST; 06/17/2024 1:44 pm INDICATION: Signs/Symptoms:bilat flank pain, urinary symptoms. COMPARISON: None. ACCESSION NUMBER(S): [id number] ORDERING CLINICIAN: KARISSA ELLINGTON TECHNIQUE: CT of [...] Negative Other: No acute or contributory abnormality. [facility] Bren Banks MD - 06/17/2024 Interpreted By: Bren Banks, STUDY: CT ABDOMEN PELVIS W IV CONTRAST; 06/17/2024 1:44 pm INDICATION: Signs/Symptoms:bilat flank pain, urinary symptoms. COMPARISON: None. ACCESSION NUMBER(S): [id number] ORDERING CLINICIAN: KARISSA ELLINGTON TECHNIQUE: CT of [...] Bren Banks 06/17/2024 1:55 PM Dictation workstation: [id number] [facility] Work Phone: Radiology Study observation (narrative) [facility] Work Phone: CT Abdomen and Pelvis W cont rast IVOrdered By: Bren Banks on 06-17-2024 [facility] Work Phone: Hepatic function 2000 panelo n 06-17-2024 Albumin BCP dye [Mass/Vol] 4 g/dL 3.4 - 5.0 g/dL [facility] ALP [Catalytic activity/Vol] 54 U/L 33 - 110 U/L [facility] ALT With P-5'-P [Catalytic activity/Vol] 26 U/L 7 - 45 U/L [facility] Comment on above: Patients treated wit h Sulfasalazine may generate falsely decreased results for ALT. AST With P-5'-P [Catalytic activity/Vol] 24 U/L 9 - 39 U/L [facility] Bilirubin [Mass/Vol] 0.4 mg/dL 0.0 - 1 .2 mg/dL [facility] Bilirubin.direct [Mass/Vol] 0.1 mg/dL 0.0 - 0.3 mg/dL [facility] Protein [Mass/Vol] 6.9 g/dL 6.4 - 8.2 g/dL [facility] Lipaseon 06-17-2024 Lipase [Catalytic activity/Vol] 44 U/L 9 - 82 U/L [facility] Lipase [Catalytic activity/V ol]on 06-17-2024 Venipuncture immedia tely after or during the administration of Metamizole may lead to falsely low results. Testing should be performed immediately prior to Metamizole dosing. [facility] No Panel Informationon 06-17 Interpretation and review of laboratory results Normal [facility] Interpretation and review of laboratory results Abnormal [facility] Urinalysis complete W Reflex Culture panel (U)on 06-17-2024 Appearance (U) Clear Clear [facility] Bilirubin (U) [Mass/Vol] Negative NEGATIVE [facility] Color (U) Yellow Light-Yellow , Yellow, Dark-Yellow [facility] Glucose Auto test strip (U) [Mass/Vol] Normal Normal mg/dL [facility] Ketones (U) [Mass/Vol] Negative NEGATIVE mg/dL [facility] Leukocyte esterase Auto test strip Ql (U) 250 Paulina/ L Abnormal NEGATIVE [facility] Nitrite Auto test strip Ql (U) Negative NEGATIVE [facility] pH (U) 6.5 [pH] 5.0, 5.5, 6.0, 6.5, 7.0, 7.5, 8.0 [facility] Protein (U) [Mass/Vol] 70 (1+) Abnormal NEGATIVE, 10 (TRACE), 20 (TRACE) mg/dL [facility] RBC (U) [#/Vol] Negative NEGATIVE [facility] Specific gravity (U) [Rel density] 1.027 1.005 - 1.035 [facility] Urobilinogen (U) [Mass/Vol] Normal Normal mg/dL [facility] Urinalysis microscopic panel Auto Ql (U)on 06-17-2024 Bacteria Auto (Urine sed) [#/Area] 1+ Abnormal NONE SEEN /HPF [facility] Crystals.amorphous Computer assisted (U) [#/Area] 1+ NONE, 1+, 2+ /HPF [facility] Epithelial cells.squamous Auto (Urine sed) [#/Area] 1-9 (SPARSE) Reference range not established. /HPF [facility] RBC Auto (Urine sed) [#/Area] 3-5 NONE, 1-2, 3-5 /HPF [facility] Transitional cells Computer assisted (U) [#/Area] 1-2 (FEW) Reference range not established. /HPF [facility] WBC Auto (Urine sed) [#/Area] 21-50 Abnormal 1-5, NONE /HPF [facility] POCT SARS-COV-2/FLU/RSV PCR SYMPTOMATIC manually resultedOrdered By: Thalia Michelle on 04-25-2024 FLUAV RNA KATHERIN+probe Ql (Resp) Not detected Not Detected [facility] FLUBV RNA KATHERIN+probe Ql (Resp) Not detected Not Detected [facility] RSV RNA KATHERIN+probe Ql (Resp) Not detected Not Detected [facility] SARS-CoV-2 (COVID-19) RNA KATHERIN+probe Ql (Resp) Not detected Not Detected [facility] HEMOGLOBIN A1Con 03-11-2023 Glucose [Mass/Vol] 209 mg/dL Normal [facility] Comment on above: Performed By: #### H BA1E #### [address] [address] HbA1c (Bld) [Mass fraction] 8.9 % Abnormal [facility] Comment on above: Result Comment: Diag nosis of Diabetes-Adults Non-Diabetic: < or = 5.6% Increased risk for developing diabetes: 5.7-6.4% Diagnostic of diabetes: > or = 6.5% . Monitoring of Diabetes Age (y) Therapeutic Goal (%) Adults: >18 <7.0 Pediatrics: 13-18 <7.5 7-12 <8.0 0- 6 7.5-8.5 [employer]. Diabetes Care 33(S1), Aug 2009. Performed By: #### H BA1E #### [address] [address] Blood Pressure Cuff Sizeon 0 08-21-2022 Fall risk assessment a) No falls within the last year [facility] Work Phone: Tobacco use status CPHS a) Yes [facility] Work Phone: Blood Pressure Cuff Size Adult [facility] Work Phone: Blood Pressure Cuff Size Yes [facility] Work Phone: Office Visit (Internal Medic ine)on 08-21-2022 Follow-up [...] Diabetes; JAMIE = N; Verified Transmission to [facility]; Last Updated By: [place]; 08/21/2022 3:35:32 PM Hemoglobin A1C; Status:Active; Requested for:19Nov2022; Perform:Lab Services - Lab To Draw (Blood Test); Due:[id number];Ordered; For:Diabetes; Ordered By:James Sahu; Eczema Start: Triamcinolone Acetonide 0.1 % External Cream; APPLY AND RUB IN A THIN FILM TO AFFECTED AREAS TWICE DAILY.(AM AND PM) Rx By: James Sahu; Dispense: 0 Days ; #:1 X 30 GM Tube; Refill: 0;For: Eczema; JAMIE = N; Verified Transmission to [facility]; Last Updated By: [place]; 08/21/2022 3:42:40 PM Provider Impressions .1. Uncontrolled DMII - a1c was 10.6 in 11/29 -> 9.9% - jardiance and farxgia too expensive - continue metformin 1000mg po bid - on pioglitazone - will see if mounjaro or other once weekly injection is covered 2 HTN - on coreg, losartan 3. Bipolar depression, anxiety - sees psych , will be changing to Helen - on Effexor and mirtazapine 4. VADIM on CPAP - is still using recalled fernandez machine, needs to have a new order sent to local [facility] company om anyone - reports last one sleep study was in [place] - looks like we faxed and order [...] TabletTAKE 1 TABLET DAILY. D3-50 1.25 MG (84147 UT) Oral CapsuleTAKE 1 CAPSULE ONCE DAILY FreeStyle Beena 3 SensorUse with cell phone gareth. Change sensor every 2 weeks. Ibuprofen 200 MG Oral TabletTAKE 3 TABLET Every 6 hours PRN Losartan Potassium 100 MG Oral TabletTake 1 tablet daily Magnesium Gluconate 500 MG Oral TabletTAKE 1 TABLET DAILY. Clau (more content not included)... Normal [employer] CBC AND DIFFERENTIALon 08-18 % AUTOMATED IMMATURE GRAN 0.5 % Normal 0.0 - 0.9 [facility] Comment on above: Result Comment: Opal ture Granulocyte Count (IG) includes promyelocytes, myelocytes and metamyelocytes but does not include bands. Percent differential counts (%) should be interpreted in the context of the absolute cell counts (cells/L). Performed By: #### C BCDF #### [address] [address] Basophils (Bld) [#/Vol] 0.04 10*3/uL Normal 0.00 - 0.10 [facility] Comment on above: Performed By: #### C BCDF #### [address] [address] Basophils/100 WBC (Bld) 0.5 % Normal 0.0 - 2.0 [facility] Comment on above: Performed By: #### C BCDF #### [address] [address] Eosinophils (Bld) [#/Vol] 0.14 10*3/uL Normal 0.00 - 0.70 [facility] Comment on above: Performed By: #### C BCDF #### [address] [address] Eosinophils/100 WBC (Bld) 1.8 % Normal 0.0 - 6.0 [facility] Comment on above: Performed By: #### C BCDF #### [address] [address] Erythrocyte distribution width (RBC) [Ratio] 12.6 % Normal 11.5 - 14.5 [facility] Comment on above: Performed By: #### C BCDF #### [address] [address] Hematocrit (Bld) [Volume fraction] 37.5 % Normal 36.0 - 46.0 [facility] Comment on above: Performed By: #### C BCDF #### [address] [address] Hemoglobin (Bld) [Mass/Vol] 13.0 g/dL Normal 12.0 - 16.0 [facility] Comment on above: Performed By: #### C BCDF #### [address] [address] Lymphocytes (Bld) [#/Vol] 2.92 10*3/uL Normal 1.20 - 4.80 [facility] Comment on above: Performed By: #### C BCDF #### [address] [address] Lymphocytes/100 WBC (Bld) 36.8 % Normal 13.0 - 44.0 [facility] Comment on above: Performed By: #### C BCDF #### [address] [address] MCHC (RBC) [Mass/Vol] 34.7 g/dL Normal 32.0 - 36.0 [facility] Comment on above: Performed By: #### C BCDF #### [address] [address] MCV (RBC) [Entitic vol] 90 fL Normal 80 - 100 [facility] Comment on above: Performed By: #### C BCDF #### [address] [address] Monocytes (Bld) [#/Vol] 0.54 10*3/uL Normal 0.10 - 1.00 [facility] Comment on above: Performed By: #### C BCDF #### [address] [address] Monocytes/100 WBC (Bld) 6.8 % Normal 2.0 - 10.0 [facility] Comment on above: Performed By: #### C BCDF #### [address] [address] Neutrophils (Bld) [#/Vol] 4.25 10*3/uL Normal 1.20 - 7.70 [facility] Comment on above: Result Comment: Perc ent differential counts (%) should be interpreted in the context of the absolute cell counts (cells/L). Performed By: #### C BCDF #### [address] [address] Neutrophils/100 WBC (Bld) 53.6 % Normal 40.0 - 80.0 [facility] Comment on above: Performed By: #### C BCDF #### [address] [place] [address] Platelets (Bld) [#/Vol] 269 10*3/uL Normal 150 - 450 [facility] Comment on above: Performed By: #### C BCDF #### [address] [address] RBC 4.16 x10E12/L Normal 4.00 - 5.20 [facility] Comment on above: Performed By: #### C BCDF #### [address] [address] WBC (Bld) [#/Vol] 7.9 10*3/uL Normal 4.4 - 11.3 [facility] Comment on above: Performed By: #### C BCDF #### [address] [address] COMPREHENSIVE PANELon 2022 Albumin [Mass/Vol] 4.1 g/dL Normal 3.4 - 5.0 [facility] Comment on above: Performed By: #### C MP #### [address] [address] ALP [Catalytic activity/Vol] 68 U/L Normal 33 - 110 [facility] Comment on above: Performed By: #### C MP #### [address] [address] ALT [Catalytic activity/Vol] 42 U/L Normal 7 - 45 [facility] Comment on above: Result Comment: Sharmila ents treated with Sulfasalazine may generate falsely decreased results for ALT. Performed By: #### C MP #### [address] [address] Anion gap [Moles/Vol] 15 mmol/L Normal 10 - 20 [facility] Comment on above: Performed By: #### C MP #### [address] [address] AST [Catalytic activity/Vol] 36 U/L Normal 9 - 39 [facility] Comment on above: Performed By: #### C MP #### [address] [address] Bilirubin [Mass/Vol] 0.4 mg/dL Normal 0.0 - 1.2 [facility] Comment on above: Performed By: #### C MP #### [address] [address] Calcium [Mass/Vol] 9.3 mg/dL Normal 8.6 - 10.3 [facility] Comment on above: Performed By: #### C MP #### [address] [address] Chloride [Moles/Vol] 96 mmol/L Low 98 - 107 [facility] Comment on above: Performed By: #### C MP #### [address] [address] Creatinine [Mass/Vol] 0.50 mg/dL Normal 0.50 - 1.05 [facility] Comment on above: Performed By: #### C MP #### [address] [address] eGFR FEMALE >90 Normal >90 [facility] Comment on above: Result Comment: CALC ULATIONS OF ESTIMATED GFR ARE PERFORMED USING THE 2020 CKD-EPI STUDY REFIT EQUATION WITHOUT THE RACE VARIABLE FOR THE IDMS-TRACEABLE CREATININE METHODS. https://jasn.asnjournals.org/content//ASN.9253690 988 Performed By: #### C MP #### [address] [address] Glucose [Mass/Vol] 334 mg/dL High 74 - 99 [facility] Comment on above: Performed By: #### C MP #### [address] [address] HCO3 (Bld) [Moles/Vol] 24 mmol/L Normal 21 - 32 [facility] Comment on above: Performed By: #### C MP #### [address] [address] Potassium [Moles/Vol] 4.3 mmol/L Normal 3.5 - 5.3 [facility] Comment on above: Performed By: #### C MP #### [address] [address] Protein [Mass/Vol] 6.9 g/dL Normal 6.4 - 8.2 [facility] Comment on above: Performed By: #### C MP #### [address] [address] Sodium [Moles/Vol] 131 mmol/L Low 136 - 145 [facility] Comment on above: Performed By: #### C MP #### [address] [address] Urea nitrogen [Mass/Vol] 9 mg/dL Normal 6 - 23 [facility] Comment on above: Performed By: #### C MP #### [address] [address] Complete Blood Count + Diffe ronaldtialon 08-18-2022 Basophils/100 WBC (Bld) 0.5 % 0.0 - 2.0 [facility] Work Phone: [phone] Erythrocyte distribution width (RBC) [Ratio] 12.6 % See Below [facility] Work Phone: [phone] Comment on above: Reference Range: 11. 5 - 14.5 Hematocrit (Bld) [Volume fraction] 37.5 % See Below [facility] Work Phone: [phone] Comment on above: Reference Range: 36. 0 - 46.0 Hemoglobin (Bld) [Mass/Vol] 13.0 g/dL See Below [facility] Work Phone: [phone] Comment on above: Reference Range: 12. 0 - 16.0 Lymphocytes/100 WBC (Bld) 36.8 % See Below [facility] Work Phone: [phone] Comment on above: Reference Range: 13. 0 - 44.0 MCHC (RBC) [Mass/Vol] 34.7 g/dL See Below [facility] Work Phone: [phone] Comment on above: Reference Range: 32. 0 - 36.0 MCV (RBC) [Entitic vol] 90 fL 80 - 100 [facility] Work Phone: [phone] Monocytes/100 WBC (Bld) 6.8 % 2.0 - 10.0 [facility] Work Phone: [phone] Neutrophils/100 WBC (Bld) 53.6 % See Below [facility] Work Phone: [phone] Comment on above: Reference Range: 40. 0 - 80.0 Platelets (Bld) [#/Vol] 269 10*3/uL 150 - 450 [facility] Work Phone: [phone] RBC (Bld) [#/Vol] 4.16 {x10E12/L} See Below [facility] Work Phone: [phone] Comment on above: Reference Range: 4.0 0 - 5.20 WBC (Bld) [#/Vol] 7.9 10*3/uL 4.4 - 11.3 [facility] Work Phone: [phone] Complete Blood Count + Differential 0.04 {x10E9/L} See Below [facility] Work Phone: [phone] Comment on above: Reference Range: 0.0 0 - 0.10 Complete Blood Count + Differential 0.14 {x10E9/L} See Below [facility] Work Phone: [phone] Comment on above: Reference Range: 0.0 0 - 0.70 Complete Blood Count + Differential 0.54 {x10E9/L} See Below [facility] Work Phone: [phone] Comment on above: Reference Range: 0.1 0 - 1.00 Complete Blood Count + Differential 2.92 {x10E9/L} See Below [facility] Work Phone: [phone] Comment on above: Reference Range: 1.2 0 - 4.80 Complete Blood Count + Differential 4.25 {x10E9/L} See Below [facility] Work Phone: Comment on above: Reference Range: 1.2 0 - 7.70 Percent differential counts (%) should be interpreted in the context of the absolute cell counts (cells/L). Complete Blood Count + Differential 1.8 % 0.0 - 6.0 [facility] Work Phone: Complete Blood Count + Differential 0.5 % 0.0 - 0.9 [facility] Work Phone: Comment on above: Immature Granulocyte Count (IG) includes promyelocytes, myelocytes and metamyelocytes but does not include bands. Percent differential counts (%) should be interpreted in the context of the absolute cell counts (cells/L). FSH + LHon 08-18-2022 FOLLICLE STIM. HORMONE 24.7 IU/L Normal [facility] Comment on above: Result Comment: REF VALUES FOLLICULAR 2-12 MID-CYCLE 12-25 LUTEAL PHASE 2-12 MENOPAUSE 30-150 PREPUBERTY 50% ADULT ADULT MALE 2-10 INFANTS 0-1 Performed By: #### F SHL #### [facility] [address] [place] [address] LUTEINIZING HORMONE 17.6 IU/L Normal [facility] Comment on above: Result Comment: REF VALUES FOLLICULAR PHASE 1.9-12.5 MID-CYCLE 8.7-76.3 LUTEAL PHASE 0.5-16.9 POST MENOPAUSE 5.0-55.2 CHILDREN 0- 6.0 ADULT MALE 18-70 1.5- 9.3 ADULT MALE >70 3.1-34.6 Performed By: #### F SHL #### [facility] [address] [place] [address] HEMOGLOBIN A1Con 08-18-2022 Glucose [Mass/Vol] 237 mg/dL Normal [facility] Comment on above: Performed By: #### H BA1E #### [facility] [address] [place] [address] HbA1c (Bld) [Mass fraction] 9.9 % Abnormal [facility] Comment on above: Result Comment: Diag nosis of Diabetes-Adults Non-Diabetic: < or = 5.6% Increased risk for developing diabetes: 5.7-6.4% Diagnostic of diabetes: > or = 6.5% . Monitoring of Diabetes Age (y) Therapeutic Goal (%) Adults: >18 <7.0 Pediatrics: 13-18 <7.5 7-12 <8.0 0- 6 7.5-8.5 [employer]. Diabetes Care 33(S1), Aug 2009. Performed By: #### H BA1E #### [address] [place] [address] Hemoglobin A1Con 08-18-2022 Glucose [Mass/Vol] 237 mg/dL [facility] Work Phone: HbA1c (Bld) [Mass fraction] 9.9 % Abnormal [facility] Work Phone: Comment on above: Diagnosis of Diabete s-Adults Non-Diabetic: < or = 5.6% Increased risk for developing diabetes: 5.7-6.4% Diagnostic of diabetes: > or = 6.5%. Monitoring of Diabetes Age (y) Therapeutic Goal (%) Adults: >18 <7.0 Pediatrics: 13-18 <7.5 7-12 <8.0 0- 6 7.5-8.5 [employer]. Diabetes Care 33(S1), Aug 2009. LIPID PANEL (CORONARY RISK 2 )on 08-18-2022 Cholesterol [Mass/Vol] 284 mg/dL High 0 - 199 [facility] Comment on above: Result Comment: . AGE [...] dosing. Performed By: #### B MP #### [address] [address] Cholesterol in HDL [Mass/Vol] 51.0 mg/dL Normal [facility] Comment on above: Result Comment: . AGE VERY LOW LOW NORMAL HIGH 0-19 Y < 35 < 40 40-45 ---- 20-24 Y ---- < 40 >45 ---- >24 Y ---- < 40 40-60 >60 . Performed By: #### B MP #### [address] [address] Cholesterol.total/Ch olesterol in HDL [Mass ratio] 5.6 {ratio} Abnormal [facility] Comment on above: Result Comment: REF VALUES DESIRABLE < 3.4 HIGH RISK > 5.0 Performed By: #### B MP #### [address] [address] LDL - Normal 0 - 99 [facility] Comment on above: Result Comment: . NEAR [...] ASSAY. Performed By: #### B MP #### [address] [address] Triglyceride [Mass/Vol] 658 mg/dL High 0 - 149 [facility] Comment on above: Result Comment: . AGE [...] dosing. Performed By: #### B MP #### [address] [place] [address] VLDL SEE COMMENT Normal 0 - 40 [facility] Comment on above: Result Comment: Unab le to calculate VLDL. Performed By: #### B MP #### [address] [address] Laboratory - Chemistry and C hemistry - challengeon 08-18-2022 Albumin BCP dye [Mass/Vol] 4.1 g/dL 3.4 - 5.0 [facility] Work Phone: [phone] ALP [Catalytic activity/Vol] 68 U/L 33 - 110 [facility] Work Phone: [phone] ALT With P-5'-P [Catalytic activity/Vol] 42 U/L 7 - 45 [facility] Work Phone: [phone] Comment on above: Patients treated wit h Sulfasalazine may generate falsely decreased results for ALT. Anion gap [Moles/Vol] 15 mmol/L 10 - 20 [facility] Work Phone: [phone] AST With P-5'-P [Catalytic activity/Vol] 36 U/L 9 - 39 [facility] Work Phone: [phone] Bilirubin [Mass/Vol] 0.4 mg/dL 0.0 - 1.2 [facility] Work Phone: [phone] Calcium [Mass/Vol] 9.3 mg/dL 8.6 - 10.3 [facility] Work Phone: [phone] Chloride [Moles/Vol] 96 mmol/L below low threshold 98 - 107 [facility] Work Phone: [phone] CO2 [Moles/Vol] 24 mmol/L 21 - 32 [facility] Work Phone: [phone] Creatinine [Mass/Vol] 0.50 mg/dL See Below [facility] Work Phone: [phone] Comment on above: Reference Range: 0.5 0 - 1.05 Follitropin Qn 24.7 {IU/L} [facility] Work Phone: [phone] Comment on above: REF VALUESFOLLICULAR 0-81VNO-ZVMEE 12-25LUTEAL PHASE 2-12MENOPAUSE 30-150PREPUBERTY 50% ADULTADULT MALE 2-10INFANTS 0-1 Glucose [Mass/Vol] 334 mg/dL above high threshold 74 - 99 [facility] Work Phone: [phone] Lutropin Qn 17.6 {IU/L} [facility] Work Phone: [phone] Comment on above: REF VALUESFOLLICULAR PHASE 1.9-12.5MID-CYCLE 8.7-76.3LUTEAL PHASE 0.5-16.9POST MENOPAUSE 5.0-55.2CHILDREN 0- 6.0ADULT MALE 18-70 1.5- 9.3ADULT MALE >70 3.1-34.6 Potassium [Moles/Vol] 4.3 mmol/L 3.5 - 5.3 [facility] Work Phone: [phone] Protein [Mass/Vol] 6.9 g/dL 6.4 - 8.2 [facility] Work Phone: [phone] Sodium [Moles/Vol] 131 mmol/L below low threshold 136 - 145 [facility] Work Phone: [phone] Urea nitrogen [Mass/Vol] 9 mg/dL 6 - 23 [facility] Work Phone: [phone] Lipid Panelon 08-18-2022 Cholesterol [Mass/Vol] 284 mg/dL above high threshold 0 - 199 [facility] Comment on above: . AGE [...] dosing. Cholesterol in HDL [Mass/Vol] 51.0 mg/dL [facility]: Comment on above: . AGE VERY LOW LOW N ORMAL HIGH 0-19 Y < 35 < 40 40-45 ---- 20- 24 Y ---- < 40 >45 ---- >24 Y ---- < 40 40-60 >60. Cholesterol in LDL [Mass/Vol] - 0 - 99 [facility]: [phone] Comment on above: . NEAR BORD AGE [...] HDL [Mass ratio] 5.6 {ratio} Abnormal [facility]: Comment on above: REF VALUESDESIRABLE < 3.4HIGH RISK > 5.0 Triglyceride [Mass/Vol] 658 mg/dL above high threshold 0 - 149 [facility] Work [facility]: Comment on above: . AGE [...] Panel SEE COMMENT 0 - 40 [facility]: Comment on above: Unable to calculate VLDL. No Panel Informationon 08-18 >90 >90 [facility]: Comment on above: CALCULATIONS OF NICK MATED GFR ARE PERFORMED USING THE 2020 CKD-EPI STUDY REFIT EQUATION WITHOUT THE RACE VARIABLE FOR THE IDMS-TRACEABLE CREATININE METHODS.https://jasn.asnjournals.org/content/early/ASN .6360182447 TSHon 08-18-2022 TSH Qn 1.10 m[IU]/L Normal 0.44 - 3.98 [facility], [place] Comment on above: Result Comment: TSH testing is performed using different testing methodology at [facility] than at other [facility]. Direct result comparisons should only be made within the same method. Performed By: #### [facility] #### [place] [address] TSH - Thyroid Stimulating Ho rmone, Serumon 08-18-2022 TSH Qn 1.10 m[IU]/L See Below [facility] Work Phone: Comment on above: Reference Range: 0.4 4 - 3.98 TSH testing is performed using different testing methodology at [facility] than at other [facility]. Direct result comparisons should only be made within the same method. Established Visit (Nephrolog y)on 07-14-2022 Established Visit (Nephrology) Diagnoses/Problems Hyponatremia (276.1) (E87.1) HTN (hypertension) (401.9) (I10) Diabetes (250.00) (E11.9) Orders HTN (hypertension) Renew: Carvedilol 6.25 MG Oral Tablet; TAKE 1 TABLET TWICE DAILY WITH MEALS Hyponatremia Basic Metabolic Panel; Status:Active; Requested for:14Jul2022; Patient Discussion/Summary Issues: 1. Hyponatremia-sodium is within [...] TabletTAKE 1 TABLET DAILY. D3-50 1.25 MG (25835 UT) Oral CapsuleTAKE 1 CAPSULE ONCE DAILY [employer] Beena 3 SensorUse with cell phone gareth. Change sensor every 2 weeks. Ibuprofen 200 MG Oral TabletTAKE 3 TABLET Every 6 hours PRN Losartan Potassium 1 (more content not included)... Normal [employer] BASIC METABOLIC PANELon 12-0 Anion gap [Moles/Vol] 17 mmol/L Normal 10 - 20 [facility] Comment on above: Performed By: #### B MP #### [address] [address] Calcium [Mass/Vol] 9.3 mg/dL Normal 8.6 - 10.3 [facility] Comment on above: Performed By: #### B MP #### [address] [address] Chloride [Moles/Vol] 95 mmol/L Low 98 - 107 [facility] Comment on above: Performed By: #### B MP #### [address] [address] Creatinine [Mass/Vol] 0.60 mg/dL Normal 0.50 - 1.05 [facility] Comment on above: Performed By: #### B MP #### [address] [address] eGFR FEMALE >90 Normal >90 [facility] Comment on above: Result Comment: CALC ULATIONS OF ESTIMATED GFR ARE PERFORMED USING THE 2020 CKD-EPI STUDY REFIT EQUATION WITHOUT THE RACE VARIABLE FOR THE IDMS-TRACEABLE CREATININE METHODS. https://jasn.asnjournals.org/content/early//ASN.1588484 988 Performed By: #### B MP #### [address] [address] Glucose [Mass/Vol] 380 mg/dL High 74 - 99 [facility] Comment on above: Performed By: #### B MP #### [address] [address] HCO3 (Bld) [Moles/Vol] 23 mmol/L Normal 21 - 32 [facility] Comment on above: Performed By: #### B MP #### [address] [address] Potassium [Moles/Vol] 4.1 mmol/L Normal 3.5 - 5.3 [facility] Comment on above: Result Comment: MILD HEMOLYSIS DETECTED. The result may be falsely elevated due to hemolysis or other interferents. Clinical correlation is recommended. Repeat testing may be considered. Performed By: #### B MP #### [address] [address] Sodium [Moles/Vol] 131 mmol/L Low 136 - 145 [facility] Comment on above: Performed By: #### B MP #### [address] [address] Urea nitrogen [Mass/Vol] 12 mg/dL Normal 6 - 23 [facility] Comment on above: Performed By: #### B MP #### [address] [address] Laboratory - Chemistry and C hemistry - challengeon 07-11-2022 Anion gap [Moles/Vol] 17 mmol/L 10 - 20 [facility] DO Work Phone: Calcium [Mass/Vol] 9.3 mg/dL 8.6 - 10.3 MP-Nep hrolog y-[facility] Darryn 3 DO Work Phone: [phone] Chloride [Moles/Vol] 95 mmol/L below low threshold 98 - 107 -Nephrolog [place] [address] DO Work Phone: [phone] CO2 [Moles/Vol] 23 mmol/L 21 - 32 -Nephro log [place] [address] DO Work Phone: [phone] Creatinine [Mass/Vol] 0.60 mg/dL See Below [facility] [place] [address] DO Work Phone: [phone] Comment on above: Reference Range: 0.5 0 - 1.05 Glucose [Mass/Vol] 380 mg/dL above high threshold 74 - 99 [facility] [address] DO Work Phone: [phone] Potassium [Moles/Vol] 4.1 mmol/L 3.5 - 5.3 [facility] [address] [facility] Work Phone: [phone] Comment on above: MILD HEMOLYSIS DETEC BERTA. The result may be falsely elevated due tohemolysis or other interferents. Clinical correlation is recommended.Repeat testing may be considered. Sodium [Moles/Vol] 131 mmol/L below low threshold 136 - 145 [facility] [address] DO Work Phone: [phone] Urea nitrogen [Mass/Vol] 12 mg/dL 6 - 23 [facility] [place] [address] DO Work Phone: No Panel Informationon 07-11 >90 >90 [facility] [place] [address] DO Work Phone: Comment on above: CALCULATIONS OF NICK MATED GFR ARE PERFORMED USING THE 2020 CKD-EPI STUDY REFIT EQUATION WITHOUT THE RACE VARIABLE FOR THE IDMS-TRACEABLE CREATININE METHODS.https://jasn.asnjournals.org/content//ASN .7105186638 BASIC METABOLIC PANELon 11-1 Anion gap [Moles/Vol] 12 mmol/L Normal 10 - 20 [facility] Comment on above: Performed By: #### B MP #### [address] [address] Sodium [Moles/Vol] 129 mmol/L Low 136 - 145 [facility] Comment on above: Result Comment: Conf irmed by repeat analysis Performed By: #### B MP #### [address] [address] Calcium [Mass/Vol] 9.2 mg/dL Normal 8.6 - 10.3 [facility] Comment on above: Performed By: #### B MP #### [address] [address] Chloride [Moles/Vol] 94 mmol/L Low 98 - 107 [facility] Comment on above: Performed By: #### B MP #### [address] [address] Creatinine [Mass/Vol] 0.53 mg/dL Normal 0.50 - 1.05 [facility] Comment on above: Performed By: #### B MP #### [address] [address] eGFR FEMALE >90 Normal >90 [facility] Comment on above: Result Comment: CALC ULATIONS OF ESTIMATED GFR ARE PERFORMED USING THE 2020 CKD-EPI STUDY REFIT EQUATION WITHOUT THE RACE VARIABLE FOR THE IDMS-TRACEABLE CREATININE METHODS. https://jasn.asnjournals.org/content/early/ASN.1294621 988 Performed By: #### B MP #### [address] [address] Glucose [Mass/Vol] 218 mg/dL High 74 - 99 [facility] Comment on above: Performed By: #### B MP #### [address] [address] HCO3 (Bld) [Moles/Vol] 27 mmol/L Normal 21 - 32 [facility] Comment on above: Performed By: #### B MP #### [address] [place] [address] Potassium [Moles/Vol] 4.2 mmol/L Normal 3.5 - 5.3 [facility] Comment on above: Performed By: #### B MP #### [address] [address] Urea nitrogen [Mass/Vol] 12 mg/dL Normal 6 - 23 [facility] Comment on above: Performed By: #### B MP #### [address] [address] Laboratory - Chemistry and C hemistry - challengeon 06-24-2022 Anion gap [Moles/Vol] 12 mmol/L 10 - 20 -Nephrolog [facility] 3 DO Work Phone: [phone] Calcium [Mass/Vol] 9.2 mg/dL 8.6 - 10.3 MP-Nep hrolog [facility] 3 DO Work Phone: Chloride [Moles/Vol] 94 mmol/L below low threshold 98 - 107 -Nephrolog [facility] 3 DO Work Phone: [phone] CO2 [Moles/Vol] 27 mmol/L 21 - 32 MP-Nephro log [facility] 3 DO Work Phone: Creatinine [Mass/Vol] 0.53 mg/dL See Below -Nephrolog [facility] 3 DO Work Phone: Comment on above: Reference Range: 0.5 0 - 1.05 Glucose [Mass/Vol] 218 mg/dL above high threshold 74 - 99 -Nephrolog [facility] 3 DO Work Phone: Potassium [Moles/Vol] 4.2 mmol/L 3.5 - 5.3 -Nephrolog [facility] 3 DO Work Phone: [phone] Sodium [Moles/Vol] 129 mmol/L below low threshold 136 - 145 -Nephrolog [facility] 3 DO Work Phone: Comment on above: Confirmed by repeat analysis Urea nitrogen [Mass/Vol] 12 mg/dL -Nephrolog y-[facility] Darryn 3 DO Work Phone: No Panel Informationon 06-24 >90 >90 -Nephrolog y-[facility] Darryn 3 DO Work Phone: Comment on above: CALCULATIONS OF NICK MATED GFR ARE PERFORMED USING THE 2020 CKD-EPI STUDY REFIT EQUATION WITHOUT THE RACE VARIABLE FOR THE IDMS-TRACEABLE CREATININE METHODS.https://jasn.asnjournals.org/content/early/ASN .9821347380 BASIC METABOLIC PANELon ANION GAP Canceled Normal [facility] Comment on above: Order Comment: TEST BASIC METABOLIC PANEL WAS CANCELLED, 06/12/2022 16:16 GROSSLY HEMOLYZED. Performed By: #### B MP #### [place] [address] BICARBONATE Canceled Normal [facility] Comment on above: Order Comment: TEST BASIC METABOLIC PANEL WAS CANCELLED, 06/12/2022 16:16 GROSSLY HEMOLYZED. Performed By: #### B MP #### [address] [address] CALCIUM Canceled Normal [facility] Comment on above: Order Comment: TEST BASIC METABOLIC PANEL WAS CANCELLED, 06/12/2022 16:16 GROSSLY HEMOLYZED. Performed By: #### B MP #### [address] [address] CHLORIDE Canceled Normal [facility] Comment on above: Order Comment: TEST BASIC METABOLIC PANEL WAS CANCELLED, 06/12/2022 16:16 GROSSLY HEMOLYZED. Performed By: #### B MP #### [place] [id number] CREATININE Canceled Normal [facility] Comment on above: Order Comment: TEST BASIC METABOLIC PANEL WAS CANCELLED, 06/12/2022 16:16 GROSSLY HEMOLYZED. Performed By: #### B MP #### [address] [address] eGFR FEMALE Canceled Normal [facility] Comment on above: Order Comment: TEST BASIC METABOLIC PANEL WAS CANCELLED, 06/12/2022 16:16 GROSSLY HEMOLYZED. Result Comment: CALC ULATIONS OF ESTIMATED GFR ARE PERFORMED USING THE 2020 CKD-EPI STUDY REFIT EQUATION WITHOUT THE RACE VARIABLE FOR THE IDMS-TRACEABLE CREATININE METHODS. https://jasn.asnjournals.org/content/early/ASN.2975616 988 Performed By: #### B MP #### [address] [address] eGFR MALE Canceled Normal [facility] Comment on above: Order Comment: TEST BASIC METABOLIC PANEL WAS CANCELLED, 06/12/2022 16:16 GROSSLY HEMOLYZED. Result Comment: CALC ULATIONS OF ESTIMATED GFR ARE PERFORMED USING THE 2020 CKD-EPI STUDY REFIT EQUATION WITHOUT THE RACE VARIABLE FOR THE IDMS-TRACEABLE CREATININE METHODS. https://jasn.asnjournals.org/content/early/ASN.3985292 988 Performed By: #### B MP #### [address] [address] GLUCOSE Canceled Normal [facility] Comment on above: Order Comment: TEST BASIC METABOLIC PANEL WAS CANCELLED, 06/12/2022 16:16 GROSSLY HEMOLYZED. Performed By: #### B MP #### [address] [address] POTASSIUM Canceled Normal [facility] Comment on above: Order Comment: TEST BASIC METABOLIC PANEL WAS CANCELLED, 06/12/2022 16:16 GROSSLY HEMOLYZED. Performed By: #### B MP #### [address] [address] SODIUM Canceled Normal [facility] Comment on above: Order Comment: TEST BASIC METABOLIC PANEL WAS CANCELLED, 06/12/2022 16:16 GROSSLY HEMOLYZED. Performed By: #### B MP #### [address] [address] UREA NITROGEN Canceled Normal [facility] [place] Comment on above: Order Comment: TEST BASIC METABOLIC PANEL WAS CANCELLED, 06/12/2022 16:16 GROSSLY HEMOLYZED. Performed By: #### B #### [facility] [address] [place] [address] Established Visit (Nephrolog y)on 06-12-2022 Established Visit [...] TabletTAKE 1 TABLET DAILY. D3-50 1.25 MG (40112 UT) Oral CapsuleTAKE 1 CAPSULE ONCE DAILY [...] DAILY W (more content not included)... Normal [employer] [facility] - Chemistry and C hemistry - challengeon 06-12-2022 Calcium [Mass/Vol] Canceled MP-Nep hrolog [facility] 3 DO Work Phone: Chloride [Moles/Vol] Canceled MP-N ephrolog [facility] 3 DO Work Phone: CO2 [Moles/Vol] Canceled MP-Nephro log [facility] 3 DO Work Phone: Creatinine [Mass/Vol] Canceled MP-Nephrolog [facility] 3 DO Work Phone: Glucose [Mass/Vol] Canceled MP-Nep hrolog [facility] 3 DO Work Phone: Potassium [Moles/Vol] [facility] Work Phone: Sodium [Moles/Vol] Canceled MP-Nep hrolog y-[facility] Darryn 3 DO Work Phone: Urea nitrogen [Mass/Vol] Canceled MP-Nephrolog [facility] 3 DO Work Phone: No Panel Informationon 06-12 Canceled MP-Nephrolog y-[facility] 3 DO Work Phone: Comment on above: CALCULATIONS OF NICK MATED GFR ARE PERFORMED USING THE 2020 CKD-EPI STUDY REFIT EQUATION WITHOUT THE RACE VARIABLE FOR THE IDMS-TRACEABLE CREATININE METHODS.https://jasn.asnjournals.org/content/early/ASN .3463867790 Tobacco Screening.on 022 Tobacco use status [facility] a) Yes IM-Jialicy-V [facility] 230 DO Work Phone: Established Visit (Nephrolog y)on 05-29-2022 Established Visit [...] TabletTAKE 1 TABLET DAILY. D3-50 1.25 MG (57165 UT) Oral CapsuleTAKE 1 CAPSULE ONCE DAILY [...] 2 T (more content not included)... Normal [employer] Tobacco Screening.on 022 Tobacco use status [facility] a) Yes BB-Kkofdjf-S [facility] 230 DO Work Phone: Tobacco Screening. Yes MG-Uro logy-A [facility] 230 DO Work Phone: BASIC METABOLIC PANELon 05-10 Anion gap [Moles/Vol] 17 mmol/L Normal 10 - 20 [facility] Comment on above: Performed By: #### B MP #### [address] [address] Calcium [Mass/Vol] 9.8 mg/dL Normal 8.6 - 10.3 [facility] Comment on above: Performed By: #### B MP #### [address] [address] Chloride [Moles/Vol] 95 mmol/L Low 98 - 107 [facility] Comment on above: Performed By: #### B MP #### [address] [address] Creatinine [Mass/Vol] 0.51 mg/dL Normal 0.50 - 1.05 [facility] Comment on above: Performed By: #### B MP #### [address] [address] eGFR FEMALE >90 Normal >90 [facility] Comment on above: Result Comment: CALC ULATIONS OF ESTIMATED GFR ARE PERFORMED USING THE 2020 CKD-EPI STUDY REFIT EQUATION WITHOUT THE RACE VARIABLE FOR THE IDMS-TRACEABLE CREATININE METHODS. https://jasn.asnjournals.org/content//ASN.2260103 988 Performed By: #### B MP #### [address] [address] Glucose [Mass/Vol] 250 mg/dL High 74 - 99 [facility] Comment on above: Performed By: #### B MP #### [address] [address] HCO3 (Bld) [Moles/Vol] 24 mmol/L Normal 21 - 32 [facility] Comment on above: Performed By: #### B MP #### [address] [address] Potassium [Moles/Vol] 4.6 mmol/L Normal 3.5 - 5.3 [facility] Comment on above: Performed By: #### B MP #### [address] [address] Sodium [Moles/Vol] 131 mmol/L Low 136 - 145 [facility] Comment on above: Performed By: #### B MP #### [address] [address] Urea nitrogen [Mass/Vol] 14 mg/dL Normal 6 - 23 [facility] Comment on above: Performed By: #### B MP #### [address] [address] CARBAMAZEPINEon 05-23-2022 CARBAMAZEPINE 12.1 ug/mL High 4.0 - 12.0 [facility] [place] Comment on above: Performed By: #### B MP #### [address] [address] CBC AND DIFFERENTIALon 05-23 Basophils (Bld) [#/Vol] 0.00 10*3/uL Normal 0.00 - 0.10 [facility] Comment on above: Performed By: #### B MP #### [address] [address] Basophils/100 WBC (Bld) 0.4 % Normal 0.0 - 2.0 [facility] Comment on above: Performed By: #### B MP #### [address] [address] Eosinophils (Bld) [#/Vol] 0.10 10*3/uL Normal 0.00 - 0.70 [facility] Comment on above: Performed By: #### B MP #### [address] [address] Eosinophils/100 WBC (Bld) 1.8 % Normal 0.0 - 6.0 [facility] Comment on above: Performed By: #### B MP #### [address] [address] Erythrocyte distribution width (RBC) [Ratio] 13.1 % Normal 11.5 - 14.5 [facility] Comment on above: Performed By: #### B MP #### [address] [address] Hematocrit (Bld) [Volume fraction] 42.2 % Normal 36.0 - 46.0 [facility] Comment on above: Performed By: #### B MP #### [address] [address] Hemoglobin (Bld) [Mass/Vol] 14.3 g/dL Normal 12.0 - 16.0 [facility] Comment on above: Performed By: #### B MP #### [address] [address] Lymphocytes (Bld) [#/Vol] 3.10 10*3/uL Normal 1.20 - 4.80 [facility] Comment on above: Performed By: #### B MP #### [address] [address] Lymphocytes/100 WBC (Bld) 37.5 % Normal 13.0 - 44.0 [facility] Comment on above: Performed By: #### B MP #### [address] [address] MCHC (RBC) [Mass/Vol] 34.0 g/dL Normal 32.0 - 36.0 [facility] Comment on above: Performed By: #### B MP #### [address] [address] MCV (RBC) [Entitic vol] 90 fL Normal 80 - 100 [facility] Comment on above: Performed By: #### B MP #### [address] [address] Monocytes (Bld) [#/Vol] 0.60 10*3/uL Normal 0.10 - 1.00 [facility] Comment on above: Performed By: #### B MP #### [address] [address] Monocytes/100 WBC (Bld) 6.8 % Normal 2.0 - 10.0 [facility] Comment on above: Performed By: #### B MP #### [address] [address] Neutrophils (Bld) [#/Vol] 4.40 10*3/uL Normal 1.20 - 7.70 [facility] Comment on above: Result Comment: Perc ent differential counts (%) should be interpreted in the context of the absolute cell counts (cells/L). Performed By: #### B MP #### [address] [address] Neutrophils/100 WBC (Bld) 53.5 % Normal 40.0 - 80.0 [facility] Comment on above: Performed By: #### B MP #### [address] [address] NUCLEATED RBC 0.1 /100 WBC Normal [facility] Comment on above: Performed By: #### B MP #### [address] [address] Platelets (Bld) [#/Vol] 288 10*3/uL Normal 150 - 450 [facility] Comment on above: Performed By: #### B MP #### [address] [address] RBC 4.68 x10E12/L Normal 4.00 - 5.20 [facility] [place] Comment on above: Performed By: #### B MP #### [address] [address] WBC (Bld) [#/Vol] 8.2 10*3/uL Normal 4.4 - 11.3 [facility] Comment on above: Performed By: #### B MP #### [address] [address] Carbamazepine Level, Serumon 05-23-2022 carBAMazepine [Mass/Vol] 12.1 ug/mL above high threshold 4.0 - 12.0 -Nephrolog [facility] Darryn 3 DO Work Phone: Complete Blood Count + Diffe rentialon 05-23-2022 Basophils/100 WBC (Bld) 0.4 % 0.0 - 2.0 -Nephrolog y-[facility] [place] [address] DO Work Phone: Erythrocyte distribution width (RBC) [Ratio] 13.1 % See Below [place] [address] DO Work Phone: Comment on above: Reference Range: 11. 5 - 14.5 Hematocrit (Bld) [Volume fraction] 42.2 % See Below [place] [address] DO Work Phone: Comment on above: Reference Range: 36. 0 - 46.0 Hemoglobin (Bld) [Mass/Vol] 14.3 g/dL See Below [place] [address] DO Work Phone: Comment on above: Reference Range: 12. 0 - 16.0 Lymphocytes/100 WBC (Bld) 37.5 % See Below [place] [address] DO Work Phone: Comment on above: Reference Range: 13. 0 - 44.0 MCHC (RBC) [Mass/Vol] 34.0 g/dL See Below [place] [address] DO Work Phone: Comment on above: Reference Range: 32. 0 - 36.0 MCV (RBC) [Entitic vol] 90 fL 80 - 100 [place] [address] DO Work Phone: Monocytes/100 WBC (Bld) 6.8 % 2.0 - 10.0 [place] [address] DO Work Phone: [phone] Neutrophils/100 WBC (Bld) 53.5 % See Below [place] [address] DO Work Phone: Comment on above: Reference Range: 40. 0 - 80.0 Platelets (Bld) [#/Vol] 288 10*3/uL 150 - 450 [place] [address] DO Work Phone: [phone] RBC (Bld) [#/Vol] 4.68 {x10E12/L} See Below [facility]ph[facility] [address] DO Work Phone: Comment on above: Reference Range: 4.0 0 - 5.20 WBC (Bld) [#/Vol] 8.2 10*3/uL 4.4 - 11.3 -Nep hrolog [place] [address] DO Work Phone: Complete Blood Count + Differential 0.00 {x10E9/L} See Below [facility] [address] DO Work Phone: Comment on above: Reference Range: 0.0 0 - 0.10 Complete Blood Count + Differential 0.10 {x10E9/L} See Below [place] [address] DO Work Phone: Comment on above: Reference Range: 0.0 0 - 0.70 Complete Blood Count + Differential 0.60 {x10E9/L} See Below [place] [address] DO Work Phone: Comment on above: Reference Range: 0.1 0 - 1.00 Complete Blood Count + Differential 3.10 {x10E9/L} See Below [place] [address] DO Work Phone: Comment on above: Reference Range: 1.2 0 - 4.80 Complete Blood Count + Differential 4.40 {x10E9/L} See Below [place] [address] DO Work Phone: Comment on above: Reference Range: 1.2 0 - 7.70 Percent differential counts (%) should be interpreted in the context of the absolute cell counts (cells/L). Complete Blood Count + Differential 1.8 % 0.0 - 6.0 [place] [address] DO Work Phone: Complete Blood Count + Differential 0.1 {/100_WBC} [place] [address] DO Work Phone: HEMOGLOBIN A1Con 05-23-2022 Glucose [Mass/Vol] 223 mg/dL Normal [facility] Comment on above: Performed By: #### H BA1E #### [address] [address] HbA1c (Bld) [Mass fraction] 9.4 % Abnormal [facility] Comment on above: Result Comment: Diag nosis of Diabetes-Adults Non-Diabetic: < or = 5.6% Increased risk for developing diabetes: 5.7-6.4% Diagnostic of diabetes: > or = 6.5% . Monitoring of Diabetes Age (y) Therapeutic Goal (%) Adults: >18 <7.0 Pediatrics: 13-18 <7.5 7-12 <8.0 0- 6 7.5-8.5 [employer]. Diabetes Care 33(S1), Aug 2009. Performed By: #### H BA1E #### [address] [address] HEPATIC FUNCTION PANELon Albumin [Mass/Vol] 4.4 g/dL Normal 3.4 - 5.0 [facility] Comment on above: Performed By: #### B MP #### [address] [address] ALP [Catalytic activity/Vol] 68 U/L Normal 33 - 110 [facility] Comment on above: Performed By: #### B MP #### [address] [address] ALT [Catalytic activity/Vol] 41 U/L Normal 7 - 45 [facility] Comment on above: Result Comment: Sharmila ents treated with Sulfasalazine may generate falsely decreased results for ALT. Performed By: #### B MP #### [address] [address] AST [Catalytic activity/Vol] 32 U/L Normal 9 - 39 [facility] Comment on above: Performed By: #### B MP #### [address] [address] Bilirubin [Mass/Vol] 0.4 mg/dL Normal 0.0 - 1.2 [facility] Comment on above: Performed By: #### B MP #### [address] [address] Bilirubin.indirect [Mass/Vol] 0.1 mg/dL Normal 0.0 - 0.3 [facility] Comment on above: Performed By: #### B MP #### [place] [address] [place] [address] Protein [Mass/Vol] 7.2 g/dL Normal 6.4 - 8.2 [facility] Comment on above: Performed By: #### B MP #### [address] [address] Hemoglobin A1Con 05-23-2022 Glucose [Mass/Vol] 223 mg/dL -Nep hrolog [facility] 3 DO Work Phone: HbA1c (Bld) [Mass fraction] 9.4 % Abnormal [facility] [address] DO Work Phone: Comment on above: Diagnosis of Diabete s-Adults Non-Diabetic: < or = 5.6% Increased risk for developing diabetes: 5.7-6.4% Diagnostic of diabetes: > or = 6.5%. Monitoring of Diabetes Age (y) Therapeutic Goal (%) Adults: >18 <7.0 Pediatrics: 13-18 <7.5 7-12 <8.0 0- 6 7.5-8.5 [employer]. Diabetes Care 33(S1), Aug 2009. Hepatic Function Panelon Albumin BCP dye [Mass/Vol] 4.4 g/dL 3.4 - 5.0 [facility] 3 DO Work Phone: ALP [Catalytic activity/Vol] 68 U/L 33 - 110 [facility] 3 DO Work Phone: ALT With P-5'-P [Catalytic activity/Vol] 41 U/L 7 - 45 [place] [address] DO Work Phone: Comment on above: Patients treated wit h Sulfasalazine may generate falsely decreased results for ALT. AST With P-5'-P [Catalytic activity/Vol] 32 U/L 9 - 39 -Nephrolog [facility] Darryn 3 DO Work Phone: [phone] Bilirubin [Mass/Vol] 0.4 mg/dL 0.0 - 1.2 MP-N ephrolog [facility] 3 DO Work Phone: [phone] Bilirubin.direct [Mass/Vol] 0.1 mg/dL 0.0 - 0.3 -Nephrolog [facility] 3 DO Work Phone: [phone] Protein [Mass/Vol] 7.2 g/dL 6.4 - 8.2 MP-Nep hrolog [facility] 3 DO Work Phone: Initial Visit (Nephrology)on 05-23-2022 [...] mellitus type 2 Bipolar disorder Chief Complaint DIRECTOR HEDIS- Hospital follow-up Lab review 05/14/2022 History of [...] that she depends on her son and snbfyfnr-yb-jhm to give her a ride Review of [...] In Vitro (more content not included)... Normal [employer] [facility] - Chemistry and C hemistry - challengeon 05-23-2022 Anion gap [Moles/Vol] 17 mmol/L 10 - 20 MP-Nephrolog [facility] Darryn 3 DO Work Phone: Calcium [Mass/Vol] 9.8 mg/dL 8.6 - 10.3 MP-Nep hrolog [place] [address] DO Work Phone: [phone] Chloride [Moles/Vol] 95 mmol/L below low threshold 98 - 107 -Nephrolog [place] [address] DO Work Phone: [phone] CO2 [Moles/Vol] 24 mmol/L 21 - 32 -Nephro log [place] [address] DO Work Phone: [phone] Creatinine [Mass/Vol] 0.51 mg/dL See Below [facility] [place] [address] DO Work Phone: [phone] Comment on above: Reference Range: 0.5 0 - 1.05 Glucose [Mass/Vol] 250 mg/dL above high threshold 74 - 99 [facility] [place] [address] DO Work Phone: [phone] Potassium [Moles/Vol] 4.6 mmol/L 3.5 - 5.3 [facility] [place] [address] DO Work Phone: [phone] Sodium [Moles/Vol] 131 mmol/L below low threshold 136 - 145 [facility] [place] [address] DO Work Phone: [phone] Urea nitrogen [Mass/Vol] 14 mg/dL 6 - 23 [facility] [address] DO Work Phone: No Panel Informationon 05-23 >90 >90 [facility] [place] [address] DO Work Phone: Comment on above: CALCULATIONS OF NICK MATED GFR ARE PERFORMED USING THE 2020 CKD-EPI STUDY REFIT EQUATION WITHOUT THE RACE VARIABLE FOR THE IDMS-TRACEABLE CREATININE METHODS.https://jasn.asnjournals.org/content//ASN .3023351830 Tobacco Screening.on 022 Tobacco use status [facility] a) Yes [facility] [place] [address] DO Work Phone: Office Visit (Internal Medic [...] Diabetes; JAMIE = N; Verified Transmission to [id number]; Last Updated By: [employer]; 05/16/2022 1:51:21 PM Hemoglobin A1C; Status:Active; Requested for:16May2022; Perform:Lab Services - Lab To Draw (Blood Test); Due:14Aug2022;Ordered; For:Diabetes; Ordered By:James Sahu; HTN (hypertension) Stop: Losartan Potassium-HCTZ 100-25 MG Oral Tablet Rx By: James Sahu; Dispense: 90 Days ; #:90 Tablet; Refill: 3;For: HTN (hypertension); JAMIE = N; Sent To: KAYLA JUAN-[facility] follow up for lethargy and weakness found [...] Carvedilol 3.12 (more content not included)... Normal [employer] Tobacco Screening.on 022 Fall risk assessment a) No falls within the last year [facility] Work Phone: Tobacco use status [facility] a) Yes [facility] Work Phone: Tobacco Screening. Yes [facility] Work Phone: Tobacco Screening. Adult [facility] Work Phone: BASIC METABOLIC PANELon 10-0 Anion gap [Moles/Vol] 18 mmol/L Normal - 20 [facility] Comment on above: Performed By: #### B MP #### [address] [address] Calcium [Mass/Vol] 9.7 mg/dL Normal 8.6 - 10.3 [facility] Comment on above: Performed By: #### B MP #### [address] [address] Chloride [Moles/Vol] 96 mmol/L Low 98 - 107 [facility] Comment on above: Performed By: #### B MP #### [address] [address] Creatinine [Mass/Vol] 0.59 mg/dL Normal 0.50 - 1.05 [facility] Comment on above: Performed By: #### B MP #### [address] [address] eGFR FEMALE >90 Normal >90 [facility] Comment on above: Result Comment: CALC ULATIONS OF ESTIMATED GFR ARE PERFORMED USING THE 2020 CKD-EPI STUDY REFIT EQUATION WITHOUT THE RACE VARIABLE FOR THE IDMS-TRACEABLE CREATININE METHODS. https://jasn.asnjournals.org/content//ASN.7529421 988 Performed By: #### B MP #### [address] [address] Glucose [Mass/Vol] 311 mg/dL High 74 - 99 [facility] Comment on above: Performed By: #### B MP #### [address] [address] HCO3 (Bld) [Moles/Vol] 25 mmol/L Normal 21 - 32 [facility] Comment on above: Performed By: #### B MP #### [address] [address] Potassium [Moles/Vol] 4.1 mmol/L Normal 3.5 - 5.3 [facility] Comment on above: Performed By: #### B MP #### [address] [address] Sodium [Moles/Vol] 135 mmol/L Low 136 - 145 [facility] Comment on above: Performed By: #### B MP #### [place] [address] [place] [address] Urea nitrogen [Mass/Vol] 10 mg/dL Normal 6 - [facility] Comment on above: Performed By: #### B MP #### [place] [address] [place] [address] Laboratory - Chemistry and C hemistry - challengeon 05-14-2022 Anion gap [Moles/Vol] 18 mmol/L 10 - 20 MP-Nephrolog [facility] 3 DO Work Phone: [phone] Calcium [Mass/Vol] 9.7 mg/dL 8.6 - 10.3 MP-Nep hrolog [facility] 3 DO Work Phone: [phone] Chloride [Moles/Vol] 96 mmol/L below low threshold 98 - 107 -Nephrolog [place] [address] DO Work Phone: [phone] CO2 [Moles/Vol] 25 mmol/L 21 - 32 MP-Nephro log [facility] 3 DO Work Phone: [phone] Creatinine [Mass/Vol] 0.59 mg/dL See Below -Nephrolog [place] [address] DO Work Phone: Comment on above: Reference Range: 0.5 0 - 1.05 Glucose [Mass/Vol] 311 mg/dL above high threshold 74 - 99 MP-Neph[facility] 3 DO Work Phone: [phone] Potassium [Moles/Vol] 4.1 mmol/L 3.5 - 5.3 MP-Neph[facility] 3 DO Work Phone: [phone] Sodium [Moles/Vol] 135 mmol/L below low threshold 136 - 145 -Nephrolog [facility] 3 DO Work Phone: Urea nitrogen [Mass/Vol] 10 mg/dL - MP-Nephrolog [facility] Darryn 3 DO Work Phone: No Panel Informationon 05-14 >90 >90 MP-Nephrolog [facility] 3 DO Work Phone: Comment on above: CALCULATIONS OF NICK MATED GFR ARE PERFORMED USING THE 2020 CKD-EPI STUDY REFIT EQUATION WITHOUT THE RACE VARIABLE FOR THE IDMS-TRACEABLE CREATININE METHODS.https://jasn.asnjournals.org/content/early//ASN .7465653833 Clinical Event Note-ED Post Discharge Result Follow Up: Atteon 05-01-2022 Clinical Event Note-ED Post Discharge Result Follow Up: Atte Clinical Event: Clinical Event Note: TopicED Post Discharge Result Follow Up: Attempt 1, Complete: Urine Culture: E. coli Details Pharmacist Name: Lay Linares, Date: 05/01/22, Time: 12:14PM, Number Called: [phone], Spoke With: PatientReinier Patient contacted in regards [...] Post-Discharge Culture Follow Up Team, please contact [phone]. . Lay Linares PharmD. PGY1 Resident [facility] Electronic Signatures: Cindy Metcalf (PharmD) (Signed 02-May-2022 08:42) Co-Signer: Clinical Event Note Lay Linares ([facility]) (Signed 01-May-2022 12:16) Authored: Clinical Event Note Last Updated: 02-May-2022 08:42 by Cindy Metcalf (PharmD) Normal [facility] BASIC METABOLIC PANELon 09-2 Anion gap [Moles/Vol] 13 mmol/L Normal 10 - 20 [facility] Comment on above: Performed By: #### B MP ####[address] [address] Calcium [Mass/Vol] 8.8 mg/dL Normal 8.6 - 10.3 [facility] Comment on above: Performed By: #### B MP ####[address] [address] Chloride [Moles/Vol] 100 mmol/L Normal 98 - 107 [facility] Comment on above: Performed By: #### B MP ####[address] [address] Creatinine [Mass/Vol] 0.42 mg/dL Low 0.50 - 1.05 [facility] Comment on above: Performed By: #### B MP ####[address] [address] eGFR FEMALE >90 Normal >90 [facility] Comment on above: Result Comment: CALC ULATIONS OF ESTIMATED GFR ARE PERFORMED USING THE 2020 CKD-EPI STUDY REFIT EQUATION WITHOUT THE RACE VARIABLE FOR THE IDMS-TRACEABLE CREATININE METHODS. https://jasn.asnjournals.org/content/early/ASN.5019797 988 Performed By: #### B MP ####[address] [address] Glucose [Mass/Vol] 244 mg/dL High 74 - 99 [facility] Comment on above: Performed By: #### B MP ####[address] [address] HCO3 (Bld) [Moles/Vol] 25 mmol/L Normal 21 - 32 [facility] Comment on above: Performed By: #### B MP ####[address] [address] Potassium [Moles/Vol] 3.8 mmol/L Normal 3.5 - 5.3 [facility] Comment on above: Performed By: #### B MP ####[address] [place] [address] Sodium [Moles/Vol] 134 mmol/L Low 136 - 145 [facility] Comment on above: Performed By: #### B MP ####[address] [place] [address] Urea nitrogen [Mass/Vol] 11 mg/dL Normal 6 - 23 [facility] Comment on above: Performed By: #### B MP ####[address] [address] Clinical Note - Pharmacy v2- Discharge Med Counselingon 04-30-2022 Clinical Note - Pharmacy v2-Discharge Med Counseling Clinical Note - Pharmacy v2: Discharge Meds: Document TopicDischarge Med Counseling Time Aynhdsmt35-26 minutes Prescription Weed Sprayer Medications Home Medications Review Status for Reconciliation: [...] hours Medications DeliveredMacrobid Medications Delivered Topatient Delivery Date/[id number] 11:10 Medications ReviewedMacrobid Education TopicADR counseling; dosage, frequency, storage; medication indication; medication interactions; missed dose explanation; refills Learnerpatient Barriers to Learningnone Methodverbal Outcome Evaluation2=meets goals/outcomes Additional NotesDiscussed discharge medications with patient. Patient was given home medication summary and [employer] patient education handout for Macrobid. Reviewed when [...] was agreeable to having Macrobid filled @ [facility] and was subsequently brought to the bedside. Patient verbalized understanding of medications. Allergy: Allergies Summary Allergy Allergen: sulfa drugs Type: Drug Category Reaction: Unknown Electronic Signatures: Franko Gonzalez (PharmD) (Signed 30-Apr-2022 11:23) Authored: Discharge Meds, Allergy Last Updated: 30-Apr-2022 11:23 by Franko Gonzalez (PharmD) [facility] Discharge [id number] Discharge Profile2 Discharge Orders: Anticipated Discharge Date: Anticipated Discharge [id number] Anticipated Discharge Time09:27 Problem List: Additional Dx: UTI (urinary tract infection): Catalog Name: Urinary tract infection, site not specified Hyponatremia: Catalog Name: Hypo-osmolality and hyponatremia DNAR: Code Status at Discharge: Full Code Activity: activity as tolerated. May shower. May return to school/work Instructions: May drive. Diet: Dietresume normal diet, diabetic/carbohydrate counted Diabetic/Carbohydrate Airdihj42/gram Carb/meal, 30gram Carb snack (2) Diet Consistency/Textureregula [...] Review of Medication Reconciliation and Orders Completedby VINYL CUTTER Reviewing ProviderSLUCÍA Ross at 30-Apr-2022 09:47:04 Appointments: Follow-Up Appointment 01: Physician/Dept/ServiceDr. Sahu Reason for Referralpost hospitalization Call to Schedule in2 weeks [id number] [place] [address] Phone [phone] CommentsPlease call to schedule within 2 weeks of discharge Follow-Up Appointment 02: Physician/Dept/ServiceDr. Cornelius Reason for Referralhypnatremia Call to Schedule in2 weeks [id number] [place] [address] Phone [phone] CommentsPlease call to schedule within 2 weeks of discharge Follow-Up Appointment 03: Physician/Dept/ServiceDr. Christian Reason for ReferralDM foot care Call to Schedule in2 weeks [id number] [facility] [address] [place] [address] Phone [phone] CommentsPlease call to schedule within 2 weeks of discharge Follow-Up Appointment 04: Physician/Dept/ServiceDr. Jordan Reason for ReferralDM, Endocrinology Call to Schedule in2 weeks [id number] [facility] [address] [place] [id number] Phone [phone] CommentsPlease call to schedule within 2 weeks of discharge Electronic Signatures: Katerina Akbar (VINYL 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) (Signed 30-Apr-2022 09:47) Authored: Discharge Orders, Provider FINAL REVIEW of Orders, Appointments, Gold Form - Chief Station Engineer Summary Vane Moran (PCNA/Marketing Agent) (Signed 30-Apr-2022 10:30) Authored: Discharge Orders, Appointments Last Updated: 30-Apr-2022 10:30 by Vane Moran (PCNA/[place]) Normal [facility] GLUCOSE-POCTon 04-30-2022 Glucose [Mass/Vol] 249 mg/dL High 74 - 99 [facility] Comment on above: Performed By: #### G MATTHEW #### [facility] [address] [place] [id number] Laboratory - Chemistry and C hemistry - challengeon 04-30-2022 Glucose [Mass/Vol] 249 mg/dL above high threshold 74 - 99 MP-Nephrolog [place] [address] DO Work Phone: [phone] Anion gap [Moles/Vol] 13 mmol/L 10 - 20 MP-Nephrolog [place] [address] DO Work Phone: Calcium [Mass/Vol] 8.8 mg/dL 8.6 - 10.3 MP-Nep hrolog [place] [address] DO Work Phone: Chloride [Moles/Vol] 100 mmol/L 98 - 107 MP-N ephrolog [place] [address] DO Work Phone: CO2 [Moles/Vol] 25 mmol/L 21 - 32 MP-Nephro log [place] [address] DO Work Phone: Creatinine [Mass/Vol] 0.42 mg/dL below low threshold See Below -Nephrolog [place] [address] DO Work Phone: Comment on above: Reference Range: 0.5 0 - 1.05 Glucose [Mass/Vol] 244 mg/dL above high threshold 74 - 99 [facility] [place] [address] DO Work Phone: Potassium [Moles/Vol] 3.8 mmol/L 3.5 - 5.3 [facility] [place] [address] DO Work Phone: [phone] Sodium [Moles/Vol] 134 mmol/L below low threshold 136 - 145 [facility] [address] DO Work Phone: Urea nitrogen [Mass/Vol] 11 mg/dL 6 - 23 [facility] [address] DO Work Phone: No Panel Informationon 04-30 >90 >90 [place] [address] DO Work Phone: Comment on above: CALCULATIONS OF NICK MATED GFR ARE PERFORMED USING THE 2020 CKD-EPI STUDY REFIT EQUATION WITHOUT THE RACE VARIABLE FOR THE IDMS-TRACEABLE CREATININE METHODS.https://jasn.asnjournals.org/content/early//ASN .6921263137 Nutrition Therapy-Assessment on 04-30-2022 Nutrition Therapy-Assessment Assessment Subjective/Objective: Note Type: Assessment Note Authored by: Registered Dietitian [employer] Pager Number: [phone] Nutrition Note: The patient is a 52 year old Female admitted to the medical service for UTI and hyponatremia. MST score 3 - weight loss and decreased po PMHx: htn, bipolar and DM, Tia, thyroid goiter, VADIM. Objective Information: T PRBPMAPSpO2 [id number]/8596% Date/Time04/30 7: 7: 7: 7: 7:14 Range(35C - 36C ) (67 - 82 ) (16 - 18 ) (133 - 163 )/ (77 - 90 ) (94% - 99% ) Pain reported at 04/30 7:42: 0 = None ---- Intake and Output ----- Mn[facility]Dy[facility] Apr 30, 2022 6:00 [id number] Apr 29, 2022 10:00 [id number] Apr 29, 2022 2:00 [id number] The Intake and Output Totals for the last 24 hours are: IntakeOutsanta ana health centerNet [id number] Height/Weight: Height in cm: 167.5 centimeter(s) Weight [...] 13-18 <7.5 7-12 <8.0 0- 6 7.5-8.5 [place] [employer]. Diabetes Care 33(S1), Aug 2009. Estimated Average [id number] Current Active Medications/PN: Ascorbic Acid, Tablet (VITAMIN [...] ml/day 60gram Carb/meal, 30gram Carb evening snack ([id number] calories), 28-Apr-2022 Food/Nutrition Related History: Energy Intake: [...] arm, shoulder and neck) Estimated Needs: kcals/day: 8361-9317 Predictive Equation Used: [facility] gms protein/day: 78-98 (more content not included)... [facility] Order Reconciliationon 04-30 Order Reconciliation Page 1 Discharge Reconciliation Document Reconciliation Type: Discharge requested on behalf of Katerina Akbar (Advanced Practice Nurse) done by Katerina Akbar (VINYL CUTTER-[facility]) Discharge - Partial Reconciliation: 30-Apr-2022 09:27 by: Katerina Akbar (VINYL CUTTER-[facility]) Discharge - Reconciliation: 30-Apr-2022 09:39 by: Katerina Akbar (VINYL CUTTER-[facility]) Home Medications EnteredHOME MEDICATIONS AT DISCHARGE DateReconciliation [...] required A (more content not included)... Normal [facility] CBC AND DIFFERENTIALon 04-29 Basophils (Bld) [#/Vol] 0.00 10*3/uL Normal 0.00 - 0.10 [facility] Comment on above: Performed By: #### C BCDF ####[address] [address] Basophils/100 WBC (Bld) 0.3 % Normal 0.0 - 2.0 [facility] Comment on above: Performed By: #### C BCDF ####[address] [address] Eosinophils (Bld) [#/Vol] 0.10 10*3/uL Normal 0.00 - 0.70 [facility] Comment on above: Performed By: #### C BCDF ####[address] [address] Eosinophils/100 WBC (Bld) 1.9 % Normal 0.0 - 6.0 [facility] Comment on above: Performed By: #### C BCDF ####[address] [address] Erythrocyte distribution width (RBC) [Ratio] 13.3 % Normal 11.5 - 14.5 [facility] Comment on above: Performed By: #### C BCDF ####[address] [address] Hematocrit (Bld) [Volume fraction] 38.9 % Normal 36.0 - 46.0 [facility] Comment on above: Performed By: #### C BCDF ####[address] [address] Hemoglobin (Bld) [Mass/Vol] 13.4 g/dL Normal 12.0 - 16.0 [facility] Comment on above: Performed By: #### C BCDF ####[address] [address] Lymphocytes (Bld) [#/Vol] 2.00 10*3/uL Normal 1.20 - 4.80 [facility] Comment on above: Performed By: #### C BCDF ####[address] [address] Lymphocytes/100 WBC (Bld) 43.9 % Normal 13.0 - 44.0 [facility] Comment on above: Performed By: #### C BCDF ####[address] [address] MCHC (RBC) [Mass/Vol] 34.5 g/dL Normal 32.0 - 36.0 [facility] Comment on above: Performed By: #### C BCDF ####[address] [address] MCV (RBC) [Entitic vol] 89 fL Normal 80 - 100 [facility] Comment on above: Performed By: #### C BCDF ####[address] [address] Monocytes (Bld) [#/Vol] 0.40 10*3/uL Normal 0.10 - 1.00 [facility] Comment on above: Performed By: #### C BCDF ####[address] [address] Monocytes/100 WBC (Bld) 9.8 % Normal 2.0 - 10.0 [facility] Comment on above: Performed By: #### C BCDF ####[address] [address] Neutrophils (Bld) [#/Vol] 2.00 10*3/uL Normal 1.20 - 7.70 [facility] Comment on above: Result Comment: Perc ent differential counts (%) should be interpreted in the context of the absolute cell counts (cells/L). Performed By: #### C BCDF ####[address] [address] Neutrophils/100 WBC (Bld) 44.1 % Normal 40.0 - 80.0 [facility] Comment on above: Performed By: #### C BCDF ####[place] [id number] NUCLEATED RBC 0.1 /100 WBC Normal [facility] Comment on above: Performed By: #### C BCDF ####[place] [id number] Platelets (Bld) [#/Vol] 225 10*3/uL Normal 150 - 450 [facility] Comment on above: Performed By: #### C BCDF ####[place] [id number] RBC 4.34 x10E12/L Normal 4.00 - 5.20 [facility] Comment on above: Performed By: #### C BCDF ####[place] [id number] WBC (Bld) [#/Vol] 4.5 10*3/uL Normal 4.4 - 11.3 [facility] Comment on above: Performed By: #### C BCDF ####[place] [address] COMPREHENSIVE PANELon 04-29- 2021 Albumin [Mass/Vol] 3.7 g/dL Normal 3.4 - 5.0 [facility] Comment on above: Performed By: #### C MP ####[place] [id number] ALP [Catalytic activity/Vol] 58 U/L Normal 33 - 110 [facility] Comment on above: Performed By: #### C MP ####[place] [address] ALT [Catalytic activity/Vol] 58 U/L High 7 - 45 [facility] Comment on above: Result Comment: Sharmila ents treated with Sulfasalazine may generate falsely decreased results for ALT. Performed By: #### C MP ####[place] [address] Anion gap [Moles/Vol] 14 mmol/L Normal 10 - 20 [facility] Comment on above: Performed By: #### C MP ####[place] [id number] AST [Catalytic activity/Vol] 60 U/L High 9 - 39 [facility] Comment on above: Performed By: #### C MP ####[address] [address] Bilirubin [Mass/Vol] 0.4 mg/dL Normal 0.0 - 1.2 [facility] Comment on above: Performed By: #### C MP ####[address] [address] Calcium [Mass/Vol] 8.5 mg/dL Low 8.6 - 10.3 [facility] Comment on above: Performed By: #### C MP ####[address] [address] Chloride [Moles/Vol] 97 mmol/L Low 98 - 107 [facility] Comment on above: Performed By: #### C MP ####[address] [address] Creatinine [Mass/Vol] 0.40 mg/dL Low 0.50 - 1.05 [facility] Comment on above: Performed By: #### C MP ####[address] [address] eGFR FEMALE >90 Normal >90 [facility] Comment on above: Result Comment: CALC ULATIONS OF ESTIMATED GFR ARE PERFORMED USING THE 2020 CKD-EPI STUDY REFIT EQUATION WITHOUT THE RACE VARIABLE FOR THE IDMS-TRACEABLE CREATININE METHODS. https://jasn.asnjournals.org/content//ASN.6693004 988 Performed By: #### C MP ####[address] [address] Glucose [Mass/Vol] 259 mg/dL High 74 - 99 [facility] Comment on above: Performed By: #### C MP ####[address] [address] HCO3 (Bld) [Moles/Vol] 25 mmol/L Normal 21 - 32 [facility] Comment on above: Performed By: #### C MP ####[address] [address] Potassium [Moles/Vol] 3.6 mmol/L Normal 3.5 - 5.3 [facility] Comment on above: Performed By: #### C MP ####[address] [place] [address] Protein [Mass/Vol] 6.4 g/dL Normal 6.4 - 8.2 [facility] Comment on above: Performed By: #### C MP ####[address] [address] Sodium [Moles/Vol] 132 mmol/L Low 136 - 145 [facility] Comment on above: Performed By: #### C MP ####[address] [address] Urea nitrogen [Mass/Vol] 9 mg/dL Normal 6 - 23 [facility] Comment on above: Performed By: #### C MP ####[address] [address] Complete Blood Count + Diffe ronaldtialon 04-29-2022 Basophils/100 WBC (Bld) 0.3 % 0.0 - 2.0 [facility] [address] DO Work Phone: [phone] Erythrocyte distribution width (RBC) [Ratio] 13.3 % See Below [place] [address] DO Work Phone: [phone] Comment on above: Reference Range: 11. 5 - 14.5 Hematocrit (Bld) [Volume fraction] 38.9 % See Below [place] [address] DO Work Phone: [phone] Comment on above: Reference Range: 36. 0 - 46.0 Hemoglobin (Bld) [Mass/Vol] 13.4 g/dL See Below [place] [address] DO Work Phone: [phone] Comment on above: Reference Range: 12. 0 - 16.0 Lymphocytes/100 WBC (Bld) 43.9 % See Below [place] [address] DO Work Phone: Comment on above: Reference Range: 13. 0 - 44.0 MCHC (RBC) [Mass/Vol] 34.5 g/dL See Below [facility] [place] [address] DO Work Phone: [phone] Comment on above: Reference Range: 32. 0 - 36.0 MCV (RBC) [Entitic vol] 89 fL 80 - 100 [facility] [place] [address] DO Work Phone: [phone] Monocytes/100 WBC (Bld) 9.8 % 2.0 - 10.0 -Nephrolog [place] [address] DO Work Phone: [phone] Neutrophils/100 WBC (Bld) 44.1 % See Below [facility] [place] [address] DO Work Phone: [phone] Comment on above: Reference Range: 40. 0 - 80.0 Platelets (Bld) [#/Vol] 225 10*3/uL 150 - 450 [facility] [place] [address] DO Work Phone: [phone] RBC (Bld) [#/Vol] 4.34 {x10E12/L} See Below [facility] [place] [address] DO Work Phone: [phone] Comment on above: Reference Range: 4.0 0 - 5.20 WBC (Bld) [#/Vol] 4.5 10*3/uL 4.4 - 11.3 MP-Nep hrolog [place] [address] DO Work Phone: [phone] Complete Blood Count + Differential 0.00 {x10E9/L} See Below [facility] [place] [address] DO Work Phone: [phone] Comment on above: Reference Range: 0.0 0 - 0.10 Complete Blood Count + Differential 0.10 {x10E9/L} See Below [facility] [place] [address] DO Work Phone: Comment on above: Reference Range: 0.0 0 - 0.70 Complete Blood Count + Differential 0.40 {x10E9/L} See Below [facility] [place] [address] DO Work Phone: Comment on above: Reference Range: 0.1 0 - 1.00 Complete Blood Count + Differential 2.00 {x10E9/L} See Below [facility]ph[facility] [address] DO Work Phone: Comment on above: Reference Range: 1.2 0 - 4.80 Reference Range: 1.2 0 - 7.70 Percent differential counts (%) should be interpreted in the context of the absolute cell counts (cells/L). Complete Blood Count + Differential 1.9 % 0.0 - 6.0 [place] [address] DO Work Phone: Complete Blood Count + Differential 0.1 {/100_WBC} [place] [address] DO Work Phone: Consult-Nephrologyon 022 Consult-Nephrology Service: [...] drugs: Unknown Objective: Objective Information: T PRBPMAPSpO2 [id number]% Date/Time04/29 7: 7: 7: 7: 13: 7:32 [...] medications Hyp (more content not included)... Normal [facility] Daily Progress Note-General Internal Medicineon 04-29-2022 Daily [...] time. Objective Data: Objective Information: T PRBPMAPSpO2 [id number]% Date/Time04/29 7: 7: 7: 7: 13: 7:32 [...] Recent Lab Results: Results: CBC: 04/29/2022 05:18 \ Hgb / \ 13.4 / WBC Plt 4.5 225 / Hct \ / 38.9 \ RBC: 4.34 MCV: 89 Neutrophil %: 44.1 BMP: 04/28/2022 12:12 NA+ Cl- BUN / 125 L 94 L 9 / ------- Glucose -- 257 H K+ HCO3- Creat \ 3.6 23 0.37 L \ Calcium : 7.8 L Anion Gap : 12 CMP: 04/29/2022 05:18 NA+ Cl- BUN / 132 L 97 L 9 / ------- Glucose -- 259 H K+ HCO3- Creat \ 3.6 25 0.40 L \ \ T Bili / \ 0.4 / AST x ---- x ALT 60 Hx ---- x 58 H / Alk P \ / 58 \ Calcium : 8.5 L Anion Gap : [...] 2 consti (more content not included)... Normal Merged [facility] GLUCOSE-[facility] 04-29-2022 Glucose [Mass/Vol] 243 mg/dL High 74 - 99 [facility] Comment on above: Performed By: #### G MATTHEW ####[id number] [place] [address] Glucose [Mass/Vol] 228 mg/dL High 74 - 99 [facility] Comment on above: Performed By: #### B MP #### [facility] [address] [place] [address] Glucose [Mass/Vol] 264 mg/dL High 74 - 99 [facility] Comment on above: Performed By: #### B MP #### [place] [address] [place] [address] Glucose [Mass/Vol] 291 mg/dL High 74 - 99 [facility] Comment on above: Performed By: #### B MP #### [place] [address] [place] [address] Laboratory - Chemistry and C hemistry - challengeon 04-29-2022 Glucose [Mass/Vol] 243 mg/dL above high threshold 74 - 99 [facility]ph[facility] [address] DO Work Phone: Glucose [Mass/Vol] 228 mg/dL above high threshold 74 - 99 [facility]Neph[facility] [address] DO Work Phone: Glucose [Mass/Vol] 264 mg/dL above high threshold 74 - 99 [facility] 3 DO Work Phone: Glucose [Mass/Vol] 291 mg/dL above high threshold 74 - 99 [facility]ph[facility] [address] DO Work Phone: Albumin BCP dye [Mass/Vol] 3.7 g/dL 3.4 - 5.0 [facility] 3 DO Work Phone: ALP [Catalytic activity/Vol] 58 U/L 33 - 110 [facility] 3 DO Work Phone: ALT With P-5'-P [Catalytic activity/Vol] 58 U/L above high threshold 7 - 45 -Nephrolog [place] [address] DO Work Phone: [phone] Comment on above: Patients treated wit h Sulfasalazine may generate falsely decreased results for ALT. Anion gap [Moles/Vol] 14 mmol/L 10 - 20 -Nephrolog [place] [address] DO Work Phone: [phone] AST With P-5'-P [Catalytic activity/Vol] 60 U/L above high threshold 9 - 39 -Nephrolog [place] [address] DO Work Phone: [phone] Bilirubin [Mass/Vol] 0.4 mg/dL 0.0 - 1.2 -N ephrolog [place] [address] DO Work Phone: [phone] Calcium [Mass/Vol] 8.5 mg/dL below low threshold 8.6 - 10.3 -Nephrolog [place] [address] DO Work Phone: [phone] Chloride [Moles/Vol] 97 mmol/L below low threshold 98 - 107 -Nephrolog [place] [address] DO Work Phone: [phone] CO2 [Moles/Vol] 25 mmol/L 21 - 32 -Nephro log [place] [address] DO Work Phone: [phone] Creatinine [Mass/Vol] 0.40 mg/dL below low threshold See Below -Nephrolog [place] [address] DO Work Phone: [phone] Comment on above: Reference Range: 0.5 0 - 1.05 Glucose [Mass/Vol] 259 mg/dL above high threshold 74 - 99 -Nephrolog [place] [address] DO Work Phone: [phone] Potassium [Moles/Vol] 3.6 mmol/L 3.5 - 5.3 -Nephrolog [place] [address] DO Work Phone: [phone] Protein [Mass/Vol] 6.4 g/dL 6.4 - 8.2 -Nep hrolog [place] [address] DO Work Phone: [phone] Sodium [Moles/Vol] 132 mmol/L below low threshold 136 - 145 [facility] [place] [address] DO Work Phone: [phone] Urea nitrogen [Mass/Vol] 9 mg/dL 6 - 23 [facility] [place] [address] DO Work Phone: [phone] Creatinine (U) [Mass/Vol] 26.0 mg/dL See Below [facility] [place] [address] DO Work Phone: [phone] Comment on above: Reference Range: 20. 0 - 320.0 Sodium (U) [Moles/Vol] 32 mmol/L See Below [place] [address] DO Work Phone: [phone] Comment on above: Reference Range: Not Established Sodium/Creatinine (U) [Ratio] 123 {mmol/g_Creat} See Below [facility]Neph[facility]phanie [facility] [address] DO Work Phone: [phone] Comment on above: Reference Range: Not Established No Panel Informationon 04-29 >90 >90 [place] [address] DO Work Phone: Comment on above: CALCULATIONS OF NICK MATED GFR ARE PERFORMED USING THE 2020 CKD-EPI STUDY REFIT EQUATION WITHOUT THE RACE VARIABLE FOR THE IDMS-TRACEABLE CREATININE METHODS.https://jasn.asnjournals.org/content/early//ASN .4400421515 OSMOLALITY,URINE SPOTon 04-11 0-2021 OSMOLALITY,URINE SPOT 168 mOsm/kg Low 200 - 1200 [facility] Comment on above: Performed By: #### O SMS ####[id number] [place] [address] Osmolality, Urine Spoton Osmolality (U) [Osmolality] 168 mosm/kg below low threshold 200 - 1200 [facility]Neph[facility] [address] DO Work Phone: SODIUM, URINE SPOTon 022 CREATININE,URINE 26.0 mg/dL Normal 20.0 - 320.0 [facility] Comment on above: Performed By: #### S ODS2 #### [address] [address] Sodium (U) [Moles/Vol] 32 mmol/L Normal Not Established [facility] Comment on above: Performed By: #### S ODS2 #### [address] [address] SODIUM/CREAT RATIO 123 mmol/g Creat Normal Not Established [facility] Comment on above: Performed By: #### S ODS2 #### [address] [address] TRIIODOTHYRONINEon TRIIODOTHYRONINE 91 ng/dL Normal 60 - 200 [facility] Comment on above: Performed By: #### B MP #### [address] [address] Triiodothyronine, Level (T3) on 04-29-2022 T3 [Mass/Vol] 91 ng/dL 60 - 200 [facility] 3 DO Work Phone: Admission Risk [...] AlertFor Ebola-like Symptoms: Isolate Patient and Notify Provider/Special Crimes Investigator For Contact: Notify Provider/Special Crimes Investigator Advance Directive: Advance Directive/DNRno Advance Directive Information [...] instruction; written material Cultural Considerationsnone Developmental Considerationsnone Alevism Considerationsnone Learning Assessment (Other Learner): Other learner availableno Depression Screen: During the past month, have you often been bothered by feeling down, depressed or hopelessno During the past month, have you often had little interest or pleasure in doing thingsno Have you had any thoughts of harming anyone elseno (1) Aiken Suicide: Risk Screen Not Applicable/Able to Answerable to be screened In the Past Month: Have you wished you were or could go to sleep and not wake upno(1) In the Past Month: Have you had any actual thoughts of killing yourself no(1) Lifetime: Have you ever done, started to do, or prepared to do anything to end your lifeno Aiken Suicide Risknegative Adult Nutrition Screen: Have you [...] Spiritual Screen: Are there any cultural, spiritual, faith practices/values/needs that are important for us to knowno CAGE: Is this an in (more content not included)... Normal [facility] BASIC METABOLIC PANELon 04-10 Anion gap [Moles/Vol] 12 mmol/L Normal 10 - 20 [facility] Comment on above: Performed By: #### B MP #### [address] [address] Calcium [Mass/Vol] 7.8 mg/dL Low 8.6 - 10.3 [facility] Comment on above: Performed By: #### B MP #### [address] [address] Chloride [Moles/Vol] 94 mmol/L Low 98 - 107 [facility] Comment on above: Performed By: #### B MP #### [address] [address] Creatinine [Mass/Vol] 0.37 mg/dL Low 0.50 - 1.05 [facility] Comment on above: Performed By: #### B MP #### [address] [address] eGFR FEMALE >90 Normal >90 [facility] Comment on above: Result Comment: CALC ULATIONS OF ESTIMATED GFR ARE PERFORMED USING THE 2020 CKD-EPI STUDY REFIT EQUATION WITHOUT THE RACE VARIABLE FOR THE IDMS-TRACEABLE CREATININE METHODS. https://jasn.asnjournals.org/content/early/ASN.0672844 988 Performed By: #### B MP #### [address] [address] Glucose [Mass/Vol] 257 mg/dL High 74 - 99 [facility] Comment on above: Performed By: #### B MP #### [address] [address] HCO3 (Bld) [Moles/Vol] 23 mmol/L Normal 21 - 32 [facility] Comment on above: Performed By: #### B MP #### [address] [address] Potassium [Moles/Vol] 3.6 mmol/L Normal 3.5 - 5.3 [facility] Comment on above: Performed By: #### B MP #### [address] [address] Sodium [Moles/Vol] 125 mmol/L Low 136 - 145 [facility] Comment on above: Result Comment: veri fied with earlier result Performed By: #### B MP #### [address] [address] Urea nitrogen [Mass/Vol] 9 mg/dL Normal 6 - 23 [facility] Comment on above: Performed By: #### B MP #### [address] [address] Anion gap [Moles/Vol] 13 mmol/L Normal 10 - 20 [facility] Comment on above: Performed By: #### B MP #### [address] [address] Sodium [Moles/Vol] 124 mmol/L Low 136 - 145 [facility] Comment on above: Result Comment: repe ated and verified Performed By: #### B MP #### [address] [address] Calcium [Mass/Vol] 8.4 mg/dL Low 8.6 - 10.3 [facility] Comment on above: Performed By: #### B MP #### [address] [address] Chloride [Moles/Vol] 90 mmol/L Low 98 - 107 [facility] Comment on above: Performed By: #### B MP #### [address] [address] Creatinine [Mass/Vol] 0.47 mg/dL Low 0.50 - 1.05 [facility] Comment on above: Performed By: #### B MP #### [address] [address] eGFR FEMALE >90 Normal >90 [facility] Comment on above: Result Comment: CALC ULATIONS OF ESTIMATED GFR ARE PERFORMED USING THE 2020 CKD-EPI STUDY REFIT EQUATION WITHOUT THE RACE VARIABLE FOR THE IDMS-TRACEABLE CREATININE METHODS. https://jasn.asnjournals.org/content//ASN.9960257 988 Performed By: #### B MP #### [address] [address] Glucose [Mass/Vol] 284 mg/dL High 74 - 99 [facility] Comment on above: Performed By: #### B MP #### [address] [address] HCO3 (Bld) [Moles/Vol] 25 mmol/L Normal 21 - 32 [facility] Comment on above: Performed By: #### B MP #### [address] [address] Potassium [Moles/Vol] 3.7 mmol/L Normal 3.5 - 5.3 [facility] Comment on above: Performed By: #### B MP #### [address] [address] Urea nitrogen [Mass/Vol] 10 mg/dL Normal 6 - 23 [facility] Comment on above: Performed By: #### B MP #### [address] [address] CBC AND DIFFERENTIALon 04-28 Basophils (Bld) [#/Vol] 0.00 10*3/uL Normal 0.00 - 0.10 [facility] Comment on above: Performed By: #### C BCDF ####[address] [address] Basophils/100 WBC (Bld) 0.3 % Normal 0.0 - 2.0 [facility] Comment on above: Performed By: #### C BCDF ####[address] [address] Eosinophils (Bld) [#/Vol] 0.10 10*3/uL Normal 0.00 - 0.70 [facility] Comment on above: Performed By: #### C BCDF ####[address] [address] Eosinophils/100 WBC (Bld) 1.7 % Normal 0.0 - 6.0 [facility] Comment on above: Performed By: #### C BCDF ####[address] [address] Erythrocyte distribution width (RBC) [Ratio] 13.0 % Normal 11.5 - 14.5 [facility] Comment on above: Performed By: #### C BCDF ####[address] [address] Hematocrit (Bld) [Volume fraction] 40.9 % Normal 36.0 - 46.0 [facility] Comment on above: Performed By: #### C BCDF ####[address] [address] Hemoglobin (Bld) [Mass/Vol] 14.0 g/dL Normal 12.0 - 16.0 [facility] Comment on above: Performed By: #### C BCDF ####[address] [address] Lymphocytes (Bld) [#/Vol] 1.20 10*3/uL Normal 1.20 - 4.80 [facility] Comment on above: Performed By: #### C BCDF ####[address] [address] Lymphocytes/100 WBC (Bld) 25.3 % Normal 13.0 - 44.0 [facility] Comment on above: Performed By: #### C BCDF ####[address] [address] MCHC (RBC) [Mass/Vol] 34.2 g/dL Normal 32.0 - 36.0 [facility] Comment on above: Performed By: #### C BCDF ####[address] [address] MCV (RBC) [Entitic vol] 88 fL Normal 80 - 100 [facility] Comment on above: Performed By: #### C BCDF ####[address] [address] Monocytes (Bld) [#/Vol] 0.40 10*3/uL Normal 0.10 - 1.00 [facility] Comment on above: Performed By: #### C BCDF ####[address] [address] Monocytes/100 WBC (Bld) 8.2 % Normal 2.0 - 10.0 [facility] Comment on above: Performed By: #### C BCDF ####[address] [address] Neutrophils (Bld) [#/Vol] 3.00 10*3/uL Normal 1.20 - 7.70 [facility] Comment on above: Result Comment: Perc ent differential counts (%) should be interpreted in the context of the absolute cell counts (cells/L). Performed By: #### C BCDF ####[address] [address] Neutrophils/100 WBC (Bld) 64.5 % Normal 40.0 - 80.0 [facility] Comment on above: Performed By: #### C BCDF ####[address] [address] Platelets (Bld) [#/Vol] 213 10*3/uL Normal 150 - 450 [facility] Comment on above: Performed By: #### C BCDF ####[address] [address] RBC 4.63 x10E12/L Normal 4.00 - 5.20 [facility] Comment on above: Performed By: #### C BCDF ####[address] [address] WBC (Bld) [#/Vol] 4.6 10*3/uL Normal 4.4 - 11.3 [facility] Comment on above: Performed By: #### C BCDF ####[address] [address] CHEST 1 VIEWon 04-28-2022 CHEST 1 VIEW Patient Name: REINIER MENDOZA STUDY: CHEST 1 VIEW; 04/28/2022 10:37 am INDICATION: chills . COMPARISON: None. ACCESSION NUMBER(S): [id number] ORDERING CLINICIAN: ARNOLDO BILLS TECHNIQUE: FINDINGS: Heart is normal in size. There is no consolidation or pleural fluid. There is mild tortuosity of the aorta. The bones are unremarkable. COMPARISON OF FINDING: IMPRESSION: No acute cardiopulmonary disease. Electronically signed by: MARKUS CORNELIUS MD Normal [facility] CORONAVIRUS 2019 BY PCRon SARS-CoV-2 (COVID-19) RNA KATHERIN+probe Ql (Unsp spec) Not detected Normal Not Detected [facility] Comment on above: Result Comment: . This test has received FDA Emergency Use Authorization (EUA) and has been verified by [facility]. This test is only authorized for the duration of time that circumstances exist to justify the authorization of the emergency use of in vitro diagnostic tests for the detection of SARS-CoV-2 virus and/or diagnosis of COVID-19 infection under section 564(b)(1) of the Act, 21 U.S.C. 360bbb-3(b)(1), unless the authorization is terminated or revoked sooner. [facility] is certified under CLIA-88 as qualified to perform high complexity testing. Testing is performed in the [facility] laboratory located at [address] [place] [address]. SARS-CoV-2/Flu/RSV Multiplex Test: Fact sheet for providers: https://www.fda.gov/media/265558/download Fact sheet for patients: https://www.fda.gov/media/102141/download Performed By: #### C OV19 #### [place] [address] Lab Specimen Source Nasal, Nasopharyngeal Normal [facility] Comment on above: Performed By: #### C OV19 #### [place] [address] Complete Blood Count + Diffe hamzah 04-28-2022 Basophils/100 WBC (Bld) 0.3 % 0.0 - 2.0 [facility] [address] DO Work Phone: Erythrocyte distribution width (RBC) [Ratio] 13.0 % See Below [place] [address] DO Work Phone: Comment on above: Reference Range: 11. 5 - 14.5 Hematocrit (Bld) [Volume fraction] 40.9 % See Below [place] [address] DO Work Phone: Comment on above: Reference Range: 36. 0 - 46.0 Hemoglobin (Bld) [Mass/Vol] 14.0 g/dL See Below [place] [address] DO Work Phone: Comment on above: Reference Range: 12. 0 - 16.0 Lymphocytes/100 WBC (Bld) 25.3 % See Below [place] [address] DO Work Phone: Comment on above: Reference Range: 13. 0 - 44.0 MCHC (RBC) [Mass/Vol] 34.2 g/dL See Below [facility] [place] [address] DO Work Phone: [phone] Comment on above: Reference Range: 32. 0 - 36.0 MCV (RBC) [Entitic vol] 88 fL 80 - 100 [facility] [place] [address] DO Work Phone: [phone] Monocytes/100 WBC (Bld) 8.2 % 2.0 - 10.0 -Nephrolog [place] [address] DO Work Phone: [phone] Neutrophils/100 WBC (Bld) 64.5 % See Below [facility] [place] [address] DO Work Phone: [phone] Comment on above: Reference Range: 40. 0 - 80.0 Platelets (Bld) [#/Vol] 213 10*3/uL 150 - 450 [facility] [place] [address] DO Work Phone: [phone] RBC (Bld) [#/Vol] 4.63 {x10E12/L} See Below [facility] [place] [address] DO Work Phone: [phone] Comment on above: Reference Range: 4.0 0 - 5.20 WBC (Bld) [#/Vol] 4.6 10*3/uL 4.4 - 11.3 MP-Nep hrolog [place] [address] DO Work Phone: [phone] Complete Blood Count + Differential 0.00 {x10E9/L} See Below [facility] [place] [address] DO Work Phone: [phone] Comment on above: Reference Range: 0.0 0 - 0.10 Complete Blood Count + Differential 0.10 {x10E9/L} See Below [facility] [place] [address] DO Work Phone: [phone] Comment on above: Reference Range: 0.0 0 - 0.70 Complete Blood Count + Differential 0.40 {x10E9/L} See Below [facility] [address] DO Work Phone: Comment on above: Reference Range: 0.1 0 - 1.00 Complete Blood Count + Differential 1.20 {x10E9/L} See Below [place] [address] DO Work Phone: Comment on above: Reference Range: 1.2 0 - 4.80 Complete Blood Count + Differential 3.00 {x10E9/L} See Below [place] [address] DO Work Phone: Comment on above: Reference Range: 1.2 0 - 7.70 Percent differential counts (%) should be interpreted in the context of the absolute cell counts (cells/L). Complete Blood Count + Differential 1.7 % 0.0 - 6.0 [place] [address] DO Work Phone: Coronavirus 2019 RNA by PCR, Symptomaticon 04-28-2022 Coronavirus 2019 RNA by PCR, Symptomatic Not detected Normal See Below [place] [address] DO Work Phone: Comment on above: SOURCE: Nasal, Nasop haryngealReference Range: Not Detected.This test has received FDA Emergency Use Authorization (EUA) and has been verified by [facility]. This test is only authorized for the duration of time that circumstances exist to justify the authorization of the emergency use of in vitro diagnostic tests for the detection of SARS-CoV-2 virus and/or diagnosis of COVID-19 infection under section 564(b)(1) of the Act, 21 U.S.C. 360bbb-3(b)(1), unless the authorization is terminated or revoked sooner. [facility] is certified under CLIA-88 as qualified to perform high complexity testing. Testing is performed in the [facility] laboratory located at [address] [place] [address].SARS-CoV-2/Flu/RSV Multiplex Test: Fact sheet for providers: https://www.fda.gov/media/436372/downloadFact sheet for patients: https://www.fda.gov/media/733920/download Covid 19 Resultson 2 SARS-CoV-2 (COVID-19) RNA [...] You may also be contacted by the [facility] to see if any of your close [...] or Naproxen (Aleve) can also be used. Kzbe-flt-webxebz cough and cold medicines can be used according to the instructions on the package. Some mbtn-gir-ztxzpit medicines also contain acetaminophen. Make sure you [...] water are not available, use alcohol-based hand quality systems specialist. Avoid touching your eyes, nose, and mouth [...] 24 agueda (more content not included)... Normal [facility] Cult, Urineon 04-28-2022 Bacteria identified Cx Nom (U) Abnormal MP-Nephrolog -[facility] Darryn 3 DO Work Phone: GLUCOSE-POCTon 04-28-2022 Glucose [Mass/Vol] 244 mg/dL High 74 - [address] [place] [address] Comment on above: Performed By: #### G MATTHEW ####[address] [address] Glucose [Mass/Vol] 297 mg/dL High 74 - [address] [place] [address] Comment on above: Performed By: #### G MATTHEW ####[address] [address] Glucose [Mass/Vol] 217 mg/dL High 74 - [address] [place] [address] Comment on above: Performed By: #### G MATTHEW ####[address] [address] LACTATEon 04-28-2022 Lactate [Moles/Vol] 1.5 mmol/L Normal 0.4 - 2.0 [facility] Comment on above: Result Comment: Carole puncture immediately after or during the administration of Metamizole may lead to falsely low results. Testing should be performed immediately prior to Metamizole dosing. Performed By: #### B MP #### [address] [address] Laboratory - Chemistry and C hemistry - challengeon 04-28-2022 Glucose [Mass/Vol] 244 mg/dL above high threshold 74 - 99 [facility] Darryn 3 DO Work Phone: Glucose [Mass/Vol] 297 mg/dL above high threshold 74 - 99 MP-Nephrolog [facility] 3 DO Work Phone: [phone] Glucose [Mass/Vol] 217 mg/dL above high threshold 74 - 99 -Nephrolog [place] [address] DO Work Phone: [phone] Anion gap [Moles/Vol] 12 mmol/L 10 - 20 -Nephrolog [place] [address] DO Work Phone: [phone] Calcium [Mass/Vol] 7.8 mg/dL below low threshold 8.6 - 10.3 -Nephrolog [place] [address] DO Work Phone: [phone] Chloride [Moles/Vol] 94 mmol/L below low threshold 98 - 107 -Nephrolog [place] [address] DO Work Phone: [phone] CO2 [Moles/Vol] 23 mmol/L 21 - 32 -Nephro log [place] [address] DO Work Phone: [phone] Creatinine [Mass/Vol] 0.37 mg/dL below low threshold See Below [facility] [place] [address] DO Work Phone: [phone] Comment on above: Reference Range: 0.5 0 - 1.05 Glucose [Mass/Vol] 257 mg/dL above high threshold 74 - 99 -Nephrolog [facility] 3 DO Work Phone: [phone] Potassium [Moles/Vol] 3.6 mmol/L 3.5 - 5.3 -Nephrolog [place] [address] DO Work Phone: [phone] Sodium [Moles/Vol] 125 mmol/L below low threshold 136 - 145 -Nephrolog [place] [address] DO Work Phone: [phone] Comment on above: verified with juanis olivares result Urea nitrogen [Mass/Vol] 9 mg/dL 6 - 23 -Nephrolog [facility] 3 DO Work Phone: [phone] Anion gap [Moles/Vol] 13 mmol/L 10 - 20 MP-Nephrolog [place] [address] DO Work Phone: [phone] Calcium [Mass/Vol] 8.4 mg/dL below low threshold 8.6 - 10.3 -Nephrolog [place] [address] DO Work Phone: [phone] Chloride [Moles/Vol] 90 mmol/L below low threshold 98 - 107 -Nephrolog [place] [address] DO Work Phone: [phone] CO2 [Moles/Vol] 25 mmol/L 21 - 32 -Nephro log [place] [address] DO Work Phone: [phone] Creatinine [Mass/Vol] 0.47 mg/dL below low threshold See Below [facility] [place] [address] DO Work Phone: Comment on above: Reference Range: 0.5 0 - 1.05 Glucose [Mass/Vol] 284 mg/dL above high threshold 74 - 99 [facility] [place] [address] DO Work Phone: [phone] Potassium [Moles/Vol] 3.7 mmol/L 3.5 - 5.3 [facility] [place] [address] DO Work Phone: [phone] Sodium [Moles/Vol] 124 mmol/L below low threshold 136 - 145 [place] [address] DO Work Phone: Comment on above: repeated and verifie d Urea nitrogen [Mass/Vol] 10 mg/dL 6 - 23 -Nephrolog [place] [address] DO Work Phone: Lactate, Levelon 04-28-2022 Lactate [Moles/Vol] 1.5 mmol/L 0.4 - 2.0 -Ne phrolog [place] [address] DO Work Phone: Comment on above: Venipuncture immedia tely after or during the administration of Metamizole may lead to falsely low results. Testing should be performed immediately prior to Metamizole dosing. No Panel Informationon 04-28 >90 >90 MP-Nephrolog [facility] Darryn 3 DO Work Phone: Comment on above: CALCULATIONS OF NICK MATED GFR ARE PERFORMED USING THE 2020 CKD-EPI STUDY REFIT EQUATION WITHOUT THE RACE VARIABLE FOR THE IDMS-TRACEABLE CREATININE METHODS.https://jasn.asnjournals.org/content//ASN .8387099680 >90 >90 MP-Nephrolog [facility] Darryn 3 DO Work Phone: Comment on above: CALCULATIONS OF NICK MATED GFR ARE PERFORMED USING THE 2020 CKD-EPI STUDY REFIT EQUATION WITHOUT THE RACE VARIABLE FOR THE IDMS-TRACEABLE CREATININE METHODS.https://jasn.asnjournals.org/content//ASN .3309399824 Order Reconciliationon 04-28 Order Reconciliation Page 1 Admission Reconciliation Document Reconciliation Type: Admission requested on behalf of Katerina Akbar (Advanced Practice Nurse) done by Katerina Akbar (VINYL 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) Admission - Reconciliation: 28-Apr-2022 13:52 by: Katerina Akbar (VINYL 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) Home MedicationsEnteredLast Dose TakenReconciled with current Order Reconciliation Comment/ Additional Information aspirin 81 mg oral tablet 1 tab(s) orally once a [id number] 8:00 AM Aspirin TabletDOSE = 81 mg Oral Dailyaspirin 81 mg oral tablet continued as the inpatient order Aspirin CARBAMAZEPINE 200 MG TABLET 2 tab(s) orally 2 times a [id number]-Apr-2022 8:00 AM Reviewed and Held CARVEDILOL 3.125 MG TABLET 1 tab(s) orally once a [id number] 8:00 AM Carvedilol - PEDS Tablet (COREG)DOSE = 3.125 mg Oral Daily CARVEDILOL 3.125 MG TABLET continued as the inpatient order Carvedilol - PEDS Centrum Silver oral tablet 1 tab(s) orally once a [id number] 8:00 AM Reviewed and Held HYDROCHLOROTHIAZIDE 25 MG TAB 1 tab(s) orally once a [id number]-Apr-2022 8:00 AM Reviewed and Held ibuprofen 200 mg oral tablet 3 tab(s) orally every 6 hours, As Needed 4:00 AM Reviewed and Held LOSARTAN POTASSIUM 100 MG TAB 1 tab(s) orally once a [id number]-Apr-2022 8:00 AM Reviewed and Held magnesium gluconate 500 mg oral tablet 1 tab(s) orally once a day (at bedtime) PM Reviewed and Held METFORMIN HCL ER 500 MG TABLET 2 tab(s) orally 2 times a [id number]-Apr-2022 8:00 AM Reviewed and Held MIRTAZAPINE 15 MG TABLET 1 tab(s) orally once a day (at bedtime)28-Apr-2022 PM Mirtazapine - PEDS Tablet (REMERON)DOSE = 15 mg Oral Every NightCa mg/DOSE x 1 = 15 mg/Dose (Daily Total is 15 mg)MIRTAZAPINE 15 MG TABLET continued as the inpatient order Mirtazapine - PEDS Turmeric 500 mg oral capsule 2 cap(s) orally once a [id number] 8:00 AM Reviewed and Held venlafaxine 75 mg oral capsule, extended release 1 cap(s) orally once a day with 150mg [id number] 2 8:00 AM Venlafaxine Extended Release Capsule, [...] oral tablet 1 tab(s) orally once a [id number]-Apr-2022 8:00 AM Cyanocobalamin TabletDOSE = 1,000 microgram(s) Oral Daily Vitamin B-12 1000 mcg oral tablet continued as the inpatient order Cyanocobalamin Vitamin C 1000 mg oral tablet 1 tab(s) orally once a [id number]-Apr-2022 8:00 AM Ascorbic Acid Tablet (VITAMIN C)DOSE [...] day 8:00 AM Reviewed and Held Normal Merged With [facility] Patient Profile - Adult v2on 04-28-2022 Patient [...] Health: Weight in kg97.7 kilogram(s)(1) Weight in lyg996.3 pound(s) Weight Methodstated Scale Typebed Height in [...] From History and Physical 28-Apr-2022 13:48 Normal Merged With [facility] Provider Note - ED v3on - Provider Note - ED v3 Provider Note: [...] Alert and oriented x4, GCS 15 , produce weigher II-XII grossly intact. Sensation and motor function of extremities grossly intact. Psych: Appropriate mood and affect. I have reviewed and confirmed nurses/medics notes for patient past, social and family history. Portions of this note were dictated by speech recognition. An attempt at proof reading was made to minimize errors. Minor errors in internal sales engineer may be present. HISTORY OF PRESENTING ILLNESS [...] Reference Range: STRAW,YELLOW Appearance, Urine CLEAR Specific [place], Urine 1.015 pH, Urine 7.0 Protein, Urine [...] Authorization (EUA) and has been verified by [facility]. This test is only authorized for the duration of time that circum Lactate, Level 28-Apr-2022 11:03:00 ResultValue Lactate, Level 1.5 Radiology Results: Impression: No acute cardiopulmonary disease. Xray Chest 1 View [Apr 28 (more content not included)... Normal Merged With [facility] Radiologyon 04-28-2022 XR Chest Single view Normal MP-N ephrolog [facility] Darryn 3 DO Work Phone: T4 - Free Thyroxine, Serumon 04-28-2022 Free T4 [Mass/Vol] 0.94 ng/dL See Below MP-Nep hrolog [facility] Darryn 3 DO Work Phone: Comment on above: Reference Range: 0.6 1 - 1.12 Thyroxine Free testing is performed using different testing methodology at [facility] than at other [facility]. Direct result comparisons should only [...] THYROXINE,FREE 0.94 ng/dL Normal 0.61 - 1.12 Merged With [facility] Comment on above: Result Comment: Thyr oxine Free testing is performed using different testing methodology at [facility] than at other [facility]. Direct result comparisons should only [...] the blood draw. Performed By: #### B #### [place] [address] [place] [address] TSHon 04-28-2022 TSH Qn 0.82 m[IU]/L Normal 0.44 - 3.98 Merged With [facility] Comment on above: Result Comment: TSH testing is performed using different testing methodology at [facility] than at other [facility]. Direct result comparisons should only be made within the same method. Performed By: #### T SH2 #### [address] [address] TSH - Thyroid Stimulating Ho isra, Serumon 04-28-2022 TSH Qn 0.82 m[IU]/L See Below [facility] 3 DO Work Phone: Comment on above: Reference Range: 0.4 4 - 3.98 TSH testing is performed using different testing methodology at [facility] than at other [facility]. Direct result comparisons should only be made within the same method. UA MICROSCOPICon 04-28-2022 BACTERIA 4+ /HPF Abnormal [facility] Comment on above: Performed By: #### U AMIC #### [address] [address] RBC 2 /HPF Normal 0-5 [facility]erged [facility] Comment on above: Performed By: #### U AMIC #### [place] [id number] SQUAMOUS EPITH. CELLS 3 /HPF Normal [facility]erged [facility] Comment on above: Performed By: #### U AMIC #### [address] [address] WBC 9 /HPF Abnormal 0-5 [facility]erg[facility] Comment on above: Performed By: #### U AMIC #### [address] [address] URINALYSIS WITH CULTURE IF I NDICATEDon 04-28-2022 Appearance (U) CLEAR Normal CLEAR [facility] Comment on above: Performed By: #### U ARFX #### [address] [address] Bilirubin Ql (U) Negative Normal NEGATIVE [facility] Comment on above: Performed By: #### U ARFX #### [address] [address] Color (U) YELLOW Normal STRAW,YELLOW [facility]erged [facility] Comment on above: Performed By: #### U ARFX #### [address] [address] Glucose Ql (U) 150 (2+) Abnormal NEGATIVE [facility] Comment on above: Performed By: #### U ARFX #### [address] [address] Hemoglobin Ql (U) Negative Normal NEGATIVE [facility] Comment on above: Performed By: #### U ARFX #### [address] [address] Ketones Ql (U) Negative Normal NEGATIVE [facility] Comment on above: Performed By: #### U ARFX #### [place] [id number] Leukocyte esterase Test strip Ql (U) TRACE Abnormal NEGATIVE [facility] Comment on above: Performed By: #### U ARFX #### [place] [address] Nitrite Ql (U) Positive Abnormal NEGATIVE [facility] Comment on above: Performed By: #### U ARFX #### [place] [id number] pH (U) 7.0 [pH] Normal 5.0 - 8.0 [facility]erged [facility] Comment on above: Performed By: #### U ARFX #### [place] [address] Protein Ql (U) 30 (1+) Abnormal NEGATIVE [facility] Comment on above: Performed By: #### U ARFX #### [address] [address] Specific gravity (U) [Rel density] 1.015 Normal 1.005 - 1.035 Merged With [facility] Comment on above: Performed By: #### U ARFX #### [address] [address] Urobilinogen (U) [Mass/Vol] mg/dL Normal 0.0 - 1.9 [facility]erg[facility] Comment on above: Performed By: #### U ARFX #### [address] [address] Color (U) YELLOW See Below MP-Nephrolog y-[facility] 3 DO Work Phone: Comment on above: Reference Range: STR AW,YELLOW Glucose Ql (U) 150 (2+) Abnormal NEGATIVE MP-Nephrol og [place] [address] DO Work Phone: [phone] Ketones Ql (U) Negative NEGATIVE MP-Nephrol og -[place] [address] DO Work Phone: [phone] Leukocyte esterase Test strip Ql (U) TRACE Abnormal NEGATIVE MP-Nephrolog [place] [address] DO Work Phone: [phone] pH (U) 7.0 [pH] 5.0 - 8.0 MP-Nephrolog [place] [address] DO Work Phone: [phone] Protein (U) [Mass/Vol] 30 (1+) Abnormal NEGATIVE MP-Nephrolog [place] [address] DO Work Phone: [phone] RBC (U) [#/Vol] Negative NEGATIVE MP-Nephro log [place] [address] DO Work Phone: [phone] Specific gravity (U) [Rel density] 1.015 1 See Below -Nephrolog [place] [address] DO Work Phone: [phone] Comment on above: Reference Range: 1.0 05 - 1.035 URINALYSIS WITH CULTURE IF INDICATED Positive Abnormal NEGATIVE MP-Nephrolo g [place] [address] DO Work Phone: URINALYSIS WITH CULTURE IF INDICATED <2.0 0.0 - 1.9 MP-Nephrolo g [place] [address] DO Work Phone: URINALYSIS WITH CULTURE IF INDICATED Negative NEGATIVE MP-Nephrolo g [place] [address] DO Work Phone: URINALYSIS WITH CULTURE IF INDICATED CLEAR CLEAR MP-Nephrolo g [place] [address] DO Work Phone: URINE CULTURE,BACTERIALon URINE CULTURE,BACTERIAL PATIENT: REINIER MENDOZA LOCATION: [address]#: [id number] : 68 AGE: SEX: F ORDERED BY: ARNOLDO BILLS SOURCE: URINE COLLECTED: 04/28/22 11:15 ANTIBIOTICS AT SRIDEVI.: RECEIVED : 04/28/22 18:03 SITE: [facility] Kristy T S URINE CULTURE,BACTERIAL FINAL 04/30/22 14:26 ISOLATE1 : Escherichia coli >100,000 CFU/ML Organism E coli Antibiotic BP INTRP Ampicillin S Ceftriaxone S Cefazolin S Ciprofloxacin S Nitrofurantoin S Gentamicin S Levofloxacin S Piperc/Tazobact N/R Trimeth/Sulfa S ___ S=SUSCEPTIBLE I=INTERMEDIATE R=RESISTANT SDD=SUSCEPTIBLE DOSE DEPENDENT NS=NONSUSCEPTIBLE X=REPORTED IN ERROR ___ Normal Merged [facility] Comment on above: Performed By: #### B MP #### [place] [address] [place] [address] Urinalysis, Microscopicon Urinalysis, Microscopic 4+ Abnormal MP-Nephrolog y-[facility] 3 DO Work Phone: Urinalysis, Microscopic 3 {/HPF} MP-Nephrolog [place] [address] DO Work Phone: [phone] Urinalysis, Microscopic 2 {/HPF} 0-5 -Nephrolog [facility] 3 DO Work Phone: [phone] Urinalysis, Microscopic 9 {/HPF} Abnormal 0-5 [facility] [place] [address] DO Work Phone: [phone] Office Visit (Internal Medic ine)on 03-20-2022 Follow-up [...] Otitis externa; JAMIE = N; Sent To: [facility]; Last Updated By: Jose AlejandroVets [place]; 03/20/2022 3:49:16 PM Provider Impressions 1. It [...] TabletTAKE 1 TABLET DAILY. D3-50 1.25 MG (72915 UT) Oral CapsuleTAKE 1 CAPSULE ONCE DAILY [...] Vital Signs Recorded: 20Mar2022 03:33PM Heart Rate98 Ptceexrd230 Bytqnkbvk242 Height5 ft Trboff192 lb BMI Vrancpcznf52.94 kg/m2 BSA Calculated1.96 Tobacco Usea) Yes Patient [...] discharge. Jeanette (more content not included)... Normal [employer] Tobacco Screening.on 022 Fall risk assessment a) No falls within the last year [facility] Work Phone: Tobacco use status [facility] a) Yes [facility] Work Phone: [phone] Tobacco Screening. Yes [facility] Work Phone: Complete Blood Count + Diffe rentialon 12-03-2021 Basophils/100 WBC (Bld) 0.4 % 0.0 - 2.0 [facility] Work Phone: [phone] Erythrocyte distribution width (RBC) [Ratio] 13.0 % See Below [facility] Work Phone: [phone] Comment on above: Reference Range: 11. 5 - 14.5 Hematocrit (Bld) [Volume fraction] 42.6 % See Below [facility] Work Phone: [phone] Comment on above: Reference Range: 36. 0 - 46.0 Hemoglobin (Bld) [Mass/Vol] 15.0 g/dL See Below [facility] Work Phone: [phone] Comment on above: Reference Range: 12. 0 - 16.0 Lymphocytes/100 WBC (Bld) 35.1 % See Below [facility] Work Phone: [phone] Comment on above: Reference Range: 13. 0 - 44.0 MCHC (RBC) [Mass/Vol] 35.1 g/dL See Below [facility] Work Phone: [phone] Comment on above: Reference Range: 32. 0 - 36.0 MCV (RBC) [Entitic vol] 91 fL 80 - 100 [facility] Work Phone: [phone] Monocytes/100 WBC (Bld) 7.5 % 2.0 - 10.0 [facility] Work Phone: [phone] Neutrophils/100 WBC (Bld) 55.5 % See Below [facility] Work Phone: [phone] Comment on above: Reference Range: 40. 0 - 80.0 Platelets (Bld) [#/Vol] 303 10*3/uL 150 - 450 [facility] Work Phone: [phone] RBC (Bld) [#/Vol] 4.70 {x10E12/L} See Below [facility] Work Phone: [phone] Comment on above: Reference Range: 4.0 0 - 5.20 WBC (Bld) [#/Vol] 8.0 10*3/uL 4.4 - 11.3 [facility] Work Phone: [phone] Complete Blood Count + Differential 0.00 {x10E9/L} See Below [facility] Work Phone: [phone] Comment on above: Reference Range: 0.0 0 - 0.10 Complete Blood Count + Differential 0.10 {x10E9/L} See Below [facility] Work Phone: [phone] Comment on above: Reference Range: 0.0 0 - 0.70 Complete Blood Count + Differential 0.60 {x10E9/L} See Below [facility] Work Phone: [phone] Comment on above: Reference Range: 0.1 0 - 1.00 Complete Blood Count + Differential 2.80 {x10E9/L} See Below [facility] Work Phone: [phone] Comment on above: Reference Range: 1.2 0 - 4.80 Complete Blood Count + Differential 4.40 {x10E9/L} See Below [facility] Work Phone: [phone] Comment on above: Reference Range: 1.2 0 - 7.70 Percent differential counts (%) should be interpreted in the context of the absolute cell counts (cells/L). Complete Blood Count + Differential 1.5 % 0.0 - 6.0 [facility] Work Phone: [phone] Hemoglobin A1Con 12-03-2021 Glucose [Mass/Vol] 258 mg/dL [facility] Work Phone: [phone] HbA1c (Bld) [Mass fraction] 10.6 % Abnormal [facility] Work Phone: [phone] Comment on above: Diagnosis of Diabete s-Adults Non-Diabetic: < or = 5.6% Increased risk for developing diabetes: 5.7-6.4% Diagnostic of diabetes: > or = 6.5%. Monitoring of Diabetes Age (y) Therapeutic Goal (%) Adults: >18 <7.0 Pediatrics: 13-18 <7.5 7-12 <8.0 0- 6 7.5-8.5 [place] [employer]. Diabetes Care 33(S1), Aug 2009. Laboratory - Chemistry and C hemistry - challengeon 12-03-2021 Albumin BCP dye [Mass/Vol] 4.3 g/dL 3.4 - 5.0 [facility] Work Phone: [phone] ALP [Catalytic activity/Vol] 73 U/L 33 - 110 [facility] Work Phone: [phone] ALT With P-5'-P [Catalytic activity/Vol] 39 U/L 7 - 45 [facility] Work Phone: [phone] Comment on above: Patients treated wit h Sulfasalazine may generate falsely decreased results for ALT. Anion gap [Moles/Vol] 14 mmol/L 10 - 20 [facility] Work Phone: [phone] AST With P-5'-P [Catalytic activity/Vol] 35 U/L 9 - 39 [facility] Work Phone: [phone] Bilirubin [Mass/Vol] 0.3 mg/dL 0.0 - 1.2 -[facility] Work Phone: [phone] Calcium [Mass/Vol] 9.7 mg/dL 8.6 - 10.3 [facility] Work Phone: [phone] Chloride [Moles/Vol] 96 mmol/L below low threshold 98 - 107 [facility] Work Phone: [phone] CO2 [Moles/Vol] 25 mmol/L 21 - 32 [facility] Work Phone: [phone] Creatinine [Mass/Vol] 0.67 mg/dL See Below [facility] Work Phone: [phone] Comment on above: Reference Range: 0.5 0 - 1.05 Glucose [Mass/Vol] 289 mg/dL above high threshold 74 - 99 [facility] Work Phone: [phone] Potassium [Moles/Vol] 4.1 mmol/L 3.5 - 5.3 [facility] Work Phone: [phone] Protein [Mass/Vol] 7.5 g/dL 6.4 - 8.2 [facility] Work Phone: [phone] Sodium [Moles/Vol] 131 mmol/L below low threshold 136 - 145 [facility] Work Phone: [phone] TSH Qn 1.05 m[IU]/L See Below [facility] Work Phone: [phone] Comment on above: Reference Range: 0.4 4 - 3.98 TSH testing is performed using different testing methodology at [facility] than at other [facility]. Direct result comparisons should only be made within the same method. Urea nitrogen [Mass/Vol] 17 mg/dL 6 - 23 [facility] Work Phone: [phone] No Panel Informationon 12-03 >[address] >90 [facility] Work Phone: [phone] Comment on above: CALCULATIONS OF NICK MATED GFR ARE PERFORMED USING THE 2020 CKD-EPI STUDY REFIT EQUATION WITHOUT THE RACE VARIABLE FOR THE IDMS-TRACEABLE CREATININE METHODS.https://jasn.asnjournals.org/content//ASN .4558288729 Blood Pressure Cuff Sizeon 0 09-10-2021 Fall risk assessment a) No falls within the last year [facility] Work Phone: [phone] Tobacco use status [facility] a) Yes [facility] Work Phone: [phone] Blood Pressure Cuff Size Adult [facility] Work Phone: [phone] Blood Pressure Cuff Size Yes [facility] Work Phone: [phone] COVID-19, MOLECULARon 2020 SARS-COV-2 (KATE ID) Not Detected Normal Not Detected [facility] Comment on above: Result Comment: This test [...] at the following links: For Healthcare Providers: https://www.fda.gov/media/282259/download For Patients: https://www.fda.gov/media/392482/download COVID-19, Molecularon 2020 Interpretation and review of laboratory results Normal [facility] SARS-CoV-2 Not Detected Not Detected [facility] Comment on above: This test was perfor med under the FDA's Emergency Use Authorization (EUA). Testing was performed using the [employer] ID NOW COVID-19 assay on the ID NOW platform. This test has not been approved for use in asymptomatic patients and its performance in this patient population has not been evaluated. Negative results do not rule out the presence of SARS-CoV-2/COVID-19. Fact sheets for the EUA can be found at the following links: For Healthcare Providers: https://www.fda.gov/media/942001/download For Patients: https://www.fda.gov/media/517004/download POC CBC and Differentialon 0 10-23-2020 Basophils (Bld) [#/Vol] 0.02 10*3/uL [facility] Basophils/100 WBC (Bld) 0.3 % [facility] Eosinophils (Bld) [#/Vol] 0.16 10*3/uL [facility] Eosinophils/100 WBC (Bld) 2.2 % [facility] Erythrocyte distribution width (RBC) [Entitic vol] 12.2 % 11.6 - 14.8 % [facility] Hematocrit (Bld) [Volume fraction] 41.0 % 36.0 - 46.0 % [facility] Hemoglobin (Bld) [Mass/Vol] 14.1 g/dL 12.0 - 16.0 g/dL [facility] Immature granulocytes (Bld) [#/Vol] 0.05 10*3/uL [facility] Immature granulocytes/100 WBC (Bld) 0.70 % [facility] Comment on above: The IG parameter is the percentage of metamyelocytes, myelocytes and promyelocytes. An immature granulocyte count (IG) of 1% or more suggests the possibility of infection, an IG count of 3% is very likely related to an infection. Interpretation and review of laboratory results Abnormal [facility] Lymphocytes (Bld) [#/Vol] 2.41 10*3/uL [facility] Lymphocytes/100 WBC (Bld) 32.5 % [facility] MCH (RBC) [Entitic mass] 31.2 pg 26.0 - 34.0 pg [facility] MCHC (RBC) [Mass/Vol] 34.4 g/dL 31.0 - 37.0 g/dL [facility] MCV (RBC) [Entitic vol] 90.7 fL 80.0 - 100.0 fL [facility] Monocytes (Bld) [#/Vol] 0.60 10*3/uL [facility] Monocytes/100 WBC (Bld) 8.1 % [facility] Neutrophils (Bld) [#/Vol] 4.18 10*3/uL [facility] Neutrophils/100 WBC (Bld) 56.2 % [facility] Platelet mean volume (Bld) [Entitic vol] 9.2 fL Low 9.4 - 12.4 fL [facility] Platelets (Bld) [#/Vol] 259 10*3/uL [facility] RBC (Bld) [#/Vol] 4.52 10*6/uL [facility] WBC (Bld) [#/Vol] 7.42 10*3/uL [facility] POC Influenza A/Bon 10-24-19 Interpretation and review of laboratory results Normal [facility] POC Influenza B Ag Not Detected Not Detected [facility] POC Rapid Influenza A Ag Not Detected Not Detected [facility] POC Liver Panel Pluson 10-23 Albumin [Mass/Vol] 3.4 g/dL 3.2 - 5.2 g/dL [facility] ALP [Catalytic activity/Vol] 67 U/L 40 - 150 U/L [facility] ALT [Catalytic activity/Vol] 37 U/L 0 - 40 U/L [facility] Amylase [Catalytic activity/Vol] 56 U/L 25 - 115 U/L [facility] AST [Catalytic activity/Vol] 39 U/L 0 - 45 U/L [facility] Bilirubin [Mass/Vol] 0.6 mg/dL 0.0 - 1 .3 mg/dL [facility] Gamma glutamyl transferase [Catalytic activity/Vol] 75 U/L High 7 - 33 U/L [facility] Interpretation and review of laboratory results Abnormal [facility] Protein [Mass/Vol] 7.6 g/dL 6.0 - 8.0 g/dL [facility] POC Urinalysis Dipstick, Aut oon 10-23-2020 Bilirubin Ql (U) Negative Negative [facility] Glucose Ql (U) Negative Negative mg/dL [facility] Hemoglobin Ql (U) Negative Negative [facility] Interpretation and review of laboratory results Abnormal [facility] Ketones Ql (U) Negative Negative mg/dL [facility] Leukocyte esterase Test strip Ql (U) Negative Negative [facility] Nitrite Ql (U) Negative Negative [facility] pH (U) 7.0 [pH] [facility] Protein Ql (U) 100 Abnormal Negative mg/dL [facility] Specific gravity (U) [Rel density] 1.020 [facility] Urobilinogen Qn (U) 0.2 mg/dL <2.0 [facility] POC Venous Blood Gases with Full Panelon 10-23-2020 Base excess Calc (BldV) [Moles/Vol] 0.0 mmol/L [facility] Calcium.ionized [Mass/Vol] 4.5 mg/dL 4.5 - 5.3 mg/dL [facility] Chloride [Moles/Vol] 98 mmol/L 98 - 10 8 mmol/L [facility] CO2 (BldV) [Partial pressure] 41.6 mm[Hg] [facility] Creatinine [Mass/Vol] 0.81 mg/dL 0.40 - 1.10 [facility] GFR/1.73 sq M predicted among non-blacks MDRD (S/P/Bld) [Vol rate/Area] The eGFR should be used for monitoring renal function only and not for medication dosing. Specimens collected in a lithium heparin tube may show erroneous pO2, pCO2 and related calculations due to aerobic handling. If the most accurate venous blood gas results are needed, use a heparinized blood gas syringe. [facility] GFR/1.73 sq M.predicted MDRD (S/P/Bld) [Vol rate/Area] 84 mL/min/{1.73_m2} >=60 mL/min/1.73 m2 [facility] Glucose [Mass/Vol] 203 mg/dL High 65 - 99 mg/dL [facility] HCO3 (Bld) [Moles/Vol] 25.2 mmol/L 24.0 - 28.0 mmol/L [facility] Hematocrit (Bld) [Volume fraction] 45 % 36 - 46 % [facility] Hemoglobin (Bld) [Mass/Vol] 15.4 g/dL 12.0 - 16.0 g/dL [facility] Interpretation and review of laboratory results Abnormal [facility] Lactate [Moles/Vol] 1.9 mmol/L 0.6 - 2. 0 mmol/L [facility] Oxygen (BldV) [Partial pressure] 48 mm[Hg] High [facility] Oxygen saturation in Venous blood 83.1 % High 40.0 - 70.0 % [facility] pH (BldV) 7.39 [pH] [facility] Potassium [Moles/Vol] 4.2 mmol/L 3.5 - 5.1 mmol/L [facility] Sodium [Moles/Vol] 132 mmol/L Low 135 - 145 mmol/L [facility] Urea nitrogen [Mass/Vol] 17 mg/dL 8 - 25 mg/dL [facility] CSF CELL COUNT Aon 7 CSF COMMENT 12 CC CLEAR,COLORLESS CSF Normal [facility] CSF RBC NONE SEEN /UL Normal 0 [facility] WBC #/vol (Bld) NONE SEEN /UL Normal 0-5 [facility] CSF GLUCOSEon 12-19-2016 CSF GLUCOSE 120 H MG/DL Abnormal 40-70 [facility] CSF TOTAL PROTEIon 7 CSF TOTAL PROTEIN 27 MG/DL Normal 15-45 [facility] LUMBAR PUNCTUREon 12-19-2016 LUMBAR PUNCTURE FLUORO GUIDANCE CPT [facility] IM Normal [facility] URINE PREGNANCYon 12-19-2016 HCG.beta subunit ( test) Ql (U) Negative Normal [facility] CBC WITH DIFFon 05-27-2016 ABSOLUTE BASO 0.00 K/UL Normal 0.00-0.20 [facility] ABSOLUTE EOS 0.10 K/UL Normal 0-0.33 [facility] ABSOLUTE LYMPHOCYTE 2.90 K/UL Normal 1.1-4.8 [facility] ABSOLUTE MONOCYTE 0.70 K/UL Normal 0.2-0.7 [facility] ABSOLUTE NEUTROPHIL 7.70 K/UL Normal 1.83-8.70 [facility] Basophils Auto #/vol (Bld) 0.4 % Normal 0.0-1.5 [facility] DIFF TYPE AUTO Normal [facility] Eosinophils/100 leukocytes 0.9 % Normal 0.0-3.0 [facility] Erythrocyte distribution width Auto Ratio (RBC) 13.3 % Normal 10.9-14.3 [facility] Erythrocytes (RBC) 4.50 M/UL Normal 4.00-4.90 [facility] Hematocrit (HCT) 40.7 % Normal 37.0-47.0 [facility] Hemoglobin mass conc (Bld) 13.9 g/dL Normal 12.0-15.0 [facility] Lymphocytes/100 leukocytes 25 % Normal 24-44 [facility] MCH 30.9 pg Normal 28.0-34.0 [facility] MCHC mass conc (RBC) 34.2 MG/DL Normal 33.0-37.0 [facility] MCV 90.5 fL Normal 80-100 [facility] Monocytes/100 leukocytes 6.5 % Normal 3.4-9.0 [facility] NEUTROPHIL 67.2 % Normal 40.0-74.0 [facility] Platelets 262 10*3/uL Normal 150-450 [facility] WBC (Leukocytes) 11.5 10*3/uL Abnormal 4.5-11.0 [facility] HEPATIC FUNCTIONon 6 Alanine aminotransferase (ALT) 18 U/L Normal 10-54 [facility] Albumin 3.9 g/dL Normal 3.4-4.8 [facility] Albumin/Globulin Ratio 1.2 {ratio} Normal 1.1-2.2 [facility] ALK PHOS 54 U/L Normal 42-121 [facility] Aspartate aminotransferase (AST) 22 U/L Normal 10-41 [facility] Bilirubin (direct) 0.5 mg/dL Normal 0.3-1.5 [facility] Bilirubin (direct) 0.1 mg/dL Normal 0.0-0.5 [facility] Globulin 3.2 g/dL Normal 1.9-3.9 [facility] INDIRECT BILI 0.4 MG/DL Normal 0.0-1.0 [facility] Protein 7.1 g/dL Normal 5.9-7.8 [facility] TEGRETOLon 05-27-2016 CARBAMAZEPINE 6.9 UG/ML Normal 4-12 [facility] Vital Signs Date Time Vital Sign Value Performing Clinician Facility 06-16-2025 03:36-0500 Diastolic blood pressure 68 mm[Hg] Bren Kowalski DO Work Phone: [facility] 06-16-2025 03:36-0500 Heart rate 86 /min Bren Kowalski DO Work Phone: [facility] 06-16-2025 03:36-0500 Respiratory rate 18 /min Bren Kowalski DO Work Phone: [facility] 06-16-2025 03:36-0500 SaO2% (BldA) [Mass fraction] 95 % Bren Kowalski DO Work Phone: [phone])[phone] [place] [address] 06-16-2025 03:36-0500 Systolic blood pressure 139 mm[Hg] Bren Kowalski DO Work Phone: [facility] 06-16-2025 00:50-0500 Body height 167.6 cm Bren Kowalski DO Work Phone: [phone])[phone] [place] [address] 06-16-2025 00:50-0500 Body mass index (BMI) [Ratio] 38.58 kg/m2 Bren Kowalski DO Work Phone: [phone] [place] [address] 06-16-2025 00:50-0500 Body temperature 98.2 [degF] Bren Kowalski DO Work Phone: [facility] 06-16-2025 00:50-0500 Body weight 108.41 kg Bren Kowalski DO Work Phone: [facility] 06-07-2025 10:17-0400 Body height 168.9 cm Suzanne Jerezman 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 Work Phone: [facility] 06-07-2025 10:17-0400 Body mass index (BMI) [Ratio] 37.6 kg/m2 Suzanne Cruz 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 Work Phone: [facility] 06-07-2025 10:17-0400 Body weight 107.28 kg Suzanne Jerezman 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 Work Phone: [facility] 06-07-2025 10:17-0400 Diastolic blood pressure 81 mm[Hg] Suzanne Arroyo 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 Work Phone: [facility] 06-07-2025 10:17-0400 Heart rate 70 /min Suzanne Arroyo 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 Work Phone: [facility] 06-07-2025 10:17-0400 Systolic blood pressure 139 mm[Hg] Suzanen Jerezman 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 Work Phone: [facility] 04-19-2025 15:58-0400 Diastolic blood pressure 96 mm[Hg] Lynn Koch 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 Work Phone: [facility] 04-19-2025 15:58-0400 Systolic blood pressure 169 mm[Hg] Lynn Koch 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 Work Phone: [facility] 04-19-2025 14:50-0400 Body height 168.9 cm Lynn Koch 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 Work Phone: [facility] 04-19-2025 14:50-0400 Body mass index (BMI) [Ratio] 39.06 kg/m2 Lynn Koch 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 Work Phone: [facility] 04-19-2025 14:50-0400 Body weight 111.45 kg Lynn Koch 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 Work Phone: [facility] 04-19-2025 14:50-0400 Heart rate 78 /min Lynn Koch 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 Work Phone: [facility] 04-19-2025 14:50-0400 SaO2% (BldA) [Mass fraction] 97 % Lynn Koch 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 Work Phone: [facility] 09-28-2024 12:41-0500 Body height 167.6 cm Suzanne Jerezman 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 Work Phone: [facility] 09-28-2024 12:41-0500 Body mass index (BMI) [Ratio] 38.51 kg/m2 Suzanne Arroyo 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 Work Phone: [facility] 09-28-2024 12:41-0500 Body weight 108.23 kg Suzanne Jerezman 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 Work Phone: [facility] 09-28-2024 12:41-0500 Diastolic blood pressure 84 mm[Hg] Suzanne Jerezman 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 Work Phone: [facility] 09-28-2024 12:41-0500 Heart rate 83 /min Suzanne Arroyo 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 Work Phone: [facility] 09-28-2024 12:41-0500 Systolic blood pressure 139 mm[Hg] Suzanne Jerezman 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 Work Phone: [facility] 07-08-2024 10:42-0500 Body height 167.6 cm Odell Newbill PA-C Work Phone: [facility] 07-08-2024 10:42-0500 Body mass index (BMI) [Ratio] 37.93 kg/m2 Odell Newbill PA-C Work Phone: [facility] 07-08-2024 10:42-0500 Body temperature 97.59 [degF] Odell Newbill PA-C Work Phone: [facility] 07-08-2024 10:42-0500 Body weight 106.59 kg Odell Newbill PA-C Work Phone: [facility] 07-08-2024 10:42-0500 Diastolic blood pressure 88 mm[Hg] Odell Newbill PA-C Work Phone: [facility] 07-08-2024 10:42-0500 Heart rate 80 /min Odell Newbill PA-C Work Phone: [facility] 07-08-2024 10:42-0500 Respiratory rate 16 /min Odell Newbill PA-C Work Phone: [facility] 07-08-2024 10:42-0500 SaO2% (BldA) [Mass fraction] 98 % Odell Quintonl PA-C Work Phone: [facility] 07-08-2024 10:42-0500 Systolic blood pressure 138 mm[Hg] Odellbety Alcantaral PA-C Work Phone: [facility] 06-23-2024 14:28-0500 Body height 167.6 cm Emilie Cornelius APRN-ARMANDO, DNP Work Phone: [facility] 06-23-2024 14:28-0500 Body mass index (BMI) [Ratio] 38.09 kg/m2 Emilie Cornelius APRN-ARMANDO, DNP Work Phone: [facility] 06-23-2024 14:28-0500 Body weight 107.05 kg Emilie CASTREJON, DNP Work Phone: [facility] 06-23-2024 14:28-0500 Diastolic blood pressure 76 mm[Hg] Emilie Cornelius APRN-ARMANDO, DNP Work Phone: [facility] 06-23-2024 14:28-0500 Heart rate 73 /min Emilie CASTREJON, DNP Work Phone: [facility] 06-23-2024 14:28-0500 Systolic blood pressure 140 mm[Hg] Emilie ACSTREJON, DNP Work Phone: [facility] 06-17-2024 16:00-0500 Diastolic blood pressure 94 mm[Hg] Franko Murray MD Work Phone: [facility] 06-17-2024 16:00-0500 Heart rate 80 /min Franko Murray MD Work Phone: [facility] 06-17-2024 16:00-0500 Respiratory rate 16 /min Franko Murray MD Work Phone: [facility] 06-17-2024 16:00-0500 SaO2% (BldA) [Mass fraction] 97 % Franko Murray MD Work Phone: [facility] 06-17-2024 16:00-0500 Systolic blood pressure 152 mm[Hg] Franko Murray MD Work Phone: [facility] 06-17-2024 11:47-0500 Body height 167.6 cm Franko Murray MD Work Phone: [facility] 06-17-2024 11:47-0500 Body mass index (BMI) [Ratio] 36.32 kg/m2 Franko Murray MD Work Phone: [facility] 06-17-2024 11:47-0500 Body temperature 98.01 [degF] Franko Murray MD Work Phone: [facility] 06-17-2024 11:47-0500 Body weight 102.06 kg Franko Murray MD Work Phone: [facility] 04-25-2024 12:05-0400 Body height 167.6 cm Josh Harris 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 Work Phone: [facility] 04-25-2024 12:05-0400 Body mass index (BMI) [Ratio] 37.12 kg/m2 Josh Harris 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 Work Phone: [facility] 04-25-2024 12:05-0400 Body temperature 97.7 [degF] Josh Harris 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 Work Phone: [facility] 04-25-2024 12:05-0400 Body weight 104.33 kg Josh Harris 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 Work Phone: [facility] 04-25-2024 12:05-0400 Diastolic blood pressure 77 mm[Hg] Josh Harris 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 Work Phone: [facility] 04-25-2024 12:05-0400 Heart rate 85 /min Josh Harris 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 Work Phone: [facility] 04-25-2024 12:05-0400 Respiratory rate 14 /min Josh Kimberly 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 Work Phone: [facility] 04-25-2024 12:05-0400 SaO2% (BldA) [Mass fraction] 94 % Josh Kimberly 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 Work Phone: [facility] 04-25-2024 12:05-0400 Systolic blood pressure 126 mm[Hg] Josh Kimberly 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 Work Phone: [facility] 04-13-2024 15:21-0400 Body height 168.9 cm Jsoh Kimberly 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 Work Phone: [facility] 04-13-2024 15:21-0400 Body mass index (BMI) [Ratio] 38.16 kg/m2 Josh Kimberly 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 Work Phone: [facility] 04-13-2024 15:21-0400 Body temperature 98.2 [degF] Josh Kimberly 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 Work Phone: [facility] 04-13-2024 15:21-0400 Body weight 108.86 kg Josh Kimberly 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 Work Phone: [facility] 04-13-2024 15:21-0400 Diastolic blood pressure 87 mm[Hg] Josh Harris 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 Work Phone: [facility] 04-13-2024 15:21-0400 Heart rate 81 /min Josh Jamieblossom 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 Work Phone: [facility] 04-13-2024 15:21-0400 Respiratory rate 14 /min Josh Jamieblossom 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 Work Phone: [facility] 04-13-2024 15:21-0400 SaO2% (BldA) [Mass fraction] 97 % Josh Jamieblossom 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 Work Phone: [facility] 04-13-2024 15:21-0400 Systolic blood pressure 147 mm[Hg] Josh Harris APRN-WORKGROUP LEADER Work Phone: [facility] 04-15-2023 12:51-0400 Body height 152.4 cm James Oberhauser DO Work Phone: [facility] 04-15-2023 12:51-0400 Body mass index (BMI) [Ratio] 42.77 kg/m2 James Oberhauser DO Work Phone: [facility] 04-15-2023 12:51-0400 Body weight 99.34 kg James Oberhauser DO Work Phone: [facility] 04-15-2023 12:51-0400 Diastolic blood pressure 82 mm[Hg] James Oberhauser DO Work Phone: [facility] 04-15-2023 12:51-0400 Heart rate 76 /min James Oberhauser DO Work Phone: [facility] 04-15-2023 12:51-0400 Systolic blood pressure 126 mm[Hg] James Oberhauser DO Work Phone: [facility] 08-21-2022 15:19-0500 Body height 152.4 cm James L Oberhauser Work Phone: [facility] Work Phone: 08-21-2022 15:19-0500 Body mass index (BMI) [Ratio] 44.72 kg/m2 James L Oberhauser Work Phone: [facility] Work Phone: 08-21-2022 15:19-0500 Body surface area Derived from formula 1.98 m2 James L Oberhauser Work Phone: [facility] Work Phone: 08-21-2022 15:19-0500 Body weight 103.87 kg James L Oberhauser Work Phone: [facility] Work Phone: 08-21-2022 15:19-0500 Diastolic blood pressure 86 mm[Hg] James L Oberhauser Work Phone: [facility] Work Phone: 08-21-2022 15:19-0500 Heart rate 91 /min James L Oberhauser Work Phone: [facility] Work Phone: 08-21-2022 15:19-0500 Systolic blood pressure 150 mm[Hg] James L Oberhauser Work Phone: [facility] Work Phone: 07-14-2022 11:30-0500 Body height 152.4 cm James L Oberhauser Work Phone: [facility] 3 DO Work Phone: 07-14-2022 11:30-0500 Body mass index (BMI) [Ratio] 44.72 kg/m2 James L Oberhauser Work Phone: [facility] 3 DO Work Phone: 07-14-2022 11:30-0500 Body surface area Derived from formula 1.98 m2 James L Oberhauser Work Phone: [facility] 3 DO Work Phone: 07-14-2022 11:30-0500 Body weight 103.87 kg James L Oberhauser Work Phone: [facility] 3 DO Work Phone: 07-14-2022 11:30-0500 Diastolic blood pressure 90 mm[Hg] James L Oberhauser Work Phone: [facility] 3 DO Work Phone: 07-14-2022 11:30-0500 Heart rate 106 /min James L Oberhauser Work Phone: [facility] 3 DO Work Phone: 07-14-2022 11:30-0500 SaO2% (BldA) [Mass fraction] 98 % James L Oberhauser Work Phone: [facility] 3 DO Work Phone: 07-14-2022 11:30-0500 Systolic blood pressure 160 mm[Hg] James L Oberhauser Work Phone: [facility] 3 DO Work Phone: 06-12-2022 15:23-0400 Body mass index (BMI) [Ratio] 44.37 kg/m2 James L Oberhauser Work Phone: FY-Vujwfnk-Uucxeec 230 DO Work Phone: 06-12-2022 15:23-0400 Body surface area Derived from formula 1.97 m2 James L Oberhauser Work Phone: GM-Orajzzz-Ilzllro 230 DO Work Phone: 06-12-2022 15:23-0400 Body weight 103.06 kg James L Oberhauser Work Phone: TQ-Udtifck-Kpvsnzq 230 DO Work Phone: 06-12-2022 15:23-0400 Diastolic blood pressure 110 mm[Hg] James L Oberhauser Work Phone: CP-Nfwmdxc-Soimcyz 230 DO Work Phone: 06-12-2022 15:23-0400 Heart rate 88 /min James L Oberhauser Work Phone: KK-Xomnefr-Uycnvri 230 DO Work Phone: 06-12-2022 15:23-0400 SaO2% (BldA) [Mass fraction] 97 % James L Oberhauser Work Phone: QE-Ephtipr-Phxqfyr 230 DO Work Phone: 06-12-2022 15:23-0400 Systolic blood pressure 180 mm[Hg] James L Oberhauser Work Phone: FS-Jtccszq-Mrjzrrw 230 DO Work Phone: 05-29-2022 09:53-0400 Body height 152.4 cm James L Oberhauser Work Phone: VS-Dlkmxvq-Lbxdzhe 230 DO Work Phone: 05-29-2022 09:53-0400 Body mass index (BMI) [Ratio] 44.14 kg/m2 James L Oberhauser Work Phone: TV-Jvpnuga-Zmvvitg 230 DO Work Phone: 05-29-2022 09:53-0400 Body surface area Derived from formula 1.97 m2 James L Oberhauser Work Phone: SV-Gaqmumn-Hdqfxxg 230 DO Work Phone: 05-29-2022 09:53-0400 Body weight 102.51 kg James L Oberhauser Work Phone: BX-Catepkf-Znzfxhz 230 DO Work Phone: 05-29-2022 09:53-0400 Diastolic blood pressure 100 mm[Hg] James L Oberhauser Work Phone: LO-Rdfmglb-Hfyqfrk 230 DO Work Phone: 05-29-2022 09:53-0400 Heart rate 95 /min James L Oberhauser Work Phone: KS-Awiufyp-Nxguixx 230 DO Work Phone: 05-29-2022 09:53-0400 Systolic blood pressure 174 mm[Hg] James L Oberhauser Work Phone: FZ-Ogivblv-Dycvbmn 230 DO Work Phone: 05-23-2022 10:34-0400 Body mass index (BMI) [Ratio] 44.49 kg/m2 James L Oberhauser Work Phone: [facility] 3 DO Work Phone: 05-23-2022 10:34-0400 Body surface area Derived from formula 1.97 m2 James L Oberhauser Work Phone: [facility] 3 DO Work Phone: 05-23-2022 10:34-0400 Body weight 103.33 kg James L Oberhauser Work Phone: [facility] 3 DO Work Phone: 05-23-2022 10:34-0400 Diastolic blood pressure 120 mm[Hg] James L Oberhauser Work Phone: [facility] 3 DO Work Phone: 05-23-2022 10:34-0400 Heart rate 90 /min James L Oberhauser Work Phone: [facility] 3 DO Work Phone: 05-23-2022 10:34-0400 SaO2% (BldA) [Mass fraction] 98 % James L Oberhauser Work Phone: [facility] 3 DO Work Phone: 05-23-2022 10:34-0400 Systolic blood pressure 204 mm[Hg] James L Oberhauser Work Phone: [facility]pb[facility] 3 DO Work Phone: 05-16-2022 13:24-0400 Body height 152.4 cm James L Oberhauser Work Phone: [facility] Work Phone: 05-16-2022 13:24-0400 Body mass index (BMI) [Ratio] 44.33 kg/m2 James L Oberhauser Work Phone: [facility] Work Phone: 05-16-2022 13:24-0400 Body surface area Derived from formula 1.97 m2 James L Oberhauser Work Phone: [facility] Work Phone: 05-16-2022 13:24-0400 Body weight 102.97 kg James L Oberhauser Work Phone: [facility] Work Phone: 05-16-2022 13:24-0400 Diastolic blood pressure 97 mm[Hg] James L Oberhauser Work Phone: [facility] Work Phone: 05-16-2022 13:24-0400 Heart rate 92 /min James L Oberhauser Work Phone: [facility] Work Phone: 05-16-2022 13:24-0400 Systolic blood pressure 175 mm[Hg] James L Oberhauser Work Phone: [facility] Work Phone: 03-20-2022 15:33-0400 Body height 152.4 cm James L Oberhauser Work Phone: [facility] Work Phone: 03-20-2022 15:33-0400 Body mass index (BMI) [Ratio] 43.94 kg/m2 James L Oberhauser Work Phone: [facility] Work Phone: 03-20-2022 15:33-0400 Body surface area Derived from formula 1.96 m2 James L Oberhauser Work Phone: [facility] Work Phone: 03-20-2022 15:33-0400 Body weight 102.06 kg James L Oberhauser Work Phone: [facility] Work Phone: 03-20-2022 15:33-0400 Diastolic blood pressure 100 mm[Hg] James L Oberhauser Work Phone: [facility] Work Phone: 03-20-2022 15:33-0400 Heart rate 98 /min James L Oberhauser Work Phone: [facility] Work Phone: 03-20-2022 15:33-0400 Systolic blood pressure 178 mm[Hg] James L Oberhauser Work Phone: [facility] Work Phone: 09-10-2021 14:41-0500 Body height 170.18 cm James L Oberhauser Work Phone: [facility] Work Phone: 09-10-2021 14:41-0500 Body mass index (BMI) [Ratio] 36.34 kg/m2 James L Oberhauser Work Phone: [facility] Work Phone: 09-10-2021 14:41-0500 Body surface area Derived from formula 2.15 m2 James L Oberhauser Work Phone: [facility] Work Phone: 09-10-2021 14:41-0500 Body temperature 97.8 [degF] James L Oberhauser Work Phone: [facility] Work Phone: 09-10-2021 14:41-0500 Body weight 105.24 kg James L Oberhauser Work Phone: [facility] Work Phone: 09-10-2021 14:41-0500 Diastolic blood pressure 95 mm[Hg] James L Oberhauser Work Phone: [facility] Work Phone: 09-10-2021 14:41-0500 Heart rate 94 /min James L Oberhauser Work Phone: [facility] Work Phone: 09-10-2021 14:41-0500 Systolic blood pressure 149 mm[Hg] James L Oberhauser Work Phone: [facility] Work Phone: 10-23-2020 18:11-0400 BMI (Body Mass Index) 35.77 kg/m2 [facility] 10-23-2020 18:11-0400 Body Temperature 98.2 [degF] [facility] 10-23-2020 18:11-0400 Body weight 102.06 kg [facility] 10-23-2020 18:11-0400 BP Diastolic 101 mm[Hg] [facility] 10-23-2020 18:11-0400 BP Systolic 159 mm[Hg] [facility] 10-23-2020 18:11-0400 Height 168.9 cm [facility] 10-23-2020 18:11-0400 Pulse (Heart Rate) 92 /min [facility] 10-23-2020 18:11-0400 Pulse Oximetry 99 % [facility] 10-23-2020 18:11-0400 Respiratory Rate 18 /min [facility] Encounters Encounter Date Encounter Type Care Provider Facility Start: 06-19-2025 Evaluation and manag ement of inpatient [facility] Facility:[facility] Start: 06-19-2025 ambulatory [facility] Facility:[facility] Start: 06-16-2025 Encounter for other preprocedural examination Yair Benedict [facility] Start: 06-16-2025 End: 06-16-2025 Emergency department patient visit Bren Kowalski DO Work Phone: [facility] Comment on above: UTI (urinary tract i nfection), uncomplicated (Primary Dx); Periumbilical abdominal pain Start: 06-12-2025 End: 06-13-2025 ambulatory [facility] Facility:[facility] Start: 06-12-2025 ambulatory [facility] Start: 06-08-2025 End: 06-08-2025 [place]ulatory [facility] [facility] Facility:[facility] Start: 06-07-2025 End: 06-08-2025 ambulatory [facility] Ambulatory Start: 06-07-2025 End: 06-07-2025 Encounter for other preprocedural examination [facility] Ambulatory Start: 06-07-2025 End: 06-07-2025 Office outpatient visit 15 minutes Suzannelacey Arroyo 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 Work Phone: [facility] Comment on above: Primary hypertension (Primary Dx); Hyponatremia; Pre-operative clearance Start: 06-07-2025 End: 06-07-2025 Preoperative state Suzanne Jasmin JerezCruz 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 Work Phone: [facility] Work Phone: Start: 05-23-2025 End: 05-23-2025 ambulatory [facility] Facility:[facility] Start: 04-19-2025 End: 04-19-2025 Office outpatient visit 25 minutes Lynn Koch 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 Work Phone: [facility] Comment on above: Type 2 diabetes anny itus without complication, without long- term current use of insulin (Primary Dx); Primary hypertension Start: 04-19-2025 End: 04-19-2025 ambulatory LYNN Shaw [facility] Ambulatory Start: 03-23-2025 End: 03-23-2025 ambulatory Suzanne Arroyo Facility:[facility] Start: 03-16-2025 ambulatory Suzanne Arroyo Facility:[facility] Start: 03-16-2025 End: 03-16-2025 ambulatory Suzanne Arroyo Facility:[facility] Start: 03-07-2025 End: 03-07-2025 ambulatory Suzanne Arroyo Facility:[facility] Start: 02-24-2025 End: 02-24-2025 ambulatory Suzanne Cruz Facility:[facility] Start: 02-03-2025 End: 02-03-2025 ambulatory Suzanne Arroyo Facility:[facility] Start: 01-05-2025 End: 01-05-2025 ambulatory Demario Reyes Facility:[facility] Start: 12-13-2024 End: 12-13-2024 ambulatory Suzanne Cruz Facility:[facility] Start: 11-23-2024 End: 11-23-2024 ambulatory Demario Reyes Facility:[facility] Start: 10-24-2024 End: 10-24-2024 Subsequent hospital visit by physician Rad External Film EF RAD EXTERNAL [employer]M [facility]UAL Comment on above: Arrived Start: 10-24-2024 End: 10-24-2024 ambulatory SUZANNE Castellanos CRUZ [facility] Start: 10-13-2024 End: 10-13-2024 ambulatory Demario Reyes Facility:[facility] Start: 10-11-2024 End: 10-11-2024 Subsequent hospital visit by physician Jadon Marina [facility] Comment on above: Encounter for screen ing mammogram for malignant neoplasm of breast Start: 10-11-2024 End: 10-11-2024 ambulatory SUZANNE Castellanos [facility] Start: 09-28-2024 End: 09-28-2024 Office outpatient visit 25 minutes Suzanne Arroyo 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 Work Phone: [facility] Comment on above: Screening for colon cancer (Primary Dx); Folliculitis; Encounter for screening mammogram for malignant neoplasm of breast; Acute low back pain without sciatica, unspecified back pain laterality Start: 09-28-2024 End: 09-28-2024 ambulatory SUZANNE B [facility] Ambulatory Start: 09-27-2024 End: 09-27-2024 ambulatory Dmeario Wagner See Facility:[facility] Start: 07-26-2024 End: 07-26-2024 ambulatory Demario Wagner See Facility:[facility] Start: 07-08-2024 End: 07-08-2024 Office outpatient new 45 minutes Odell Mock PA-C Work Phone: [facility] Comment on above: Acute cystitis witho ut hematuria (Primary Dx); Dysuria Start: 07-08-2024 End: 07-08-2024 ambulatory [facility] Kristy [facility] Start: 06-23-2024 End: 06-23-2024 Office outpatient visit 15 minutes Emilie CASTREJON, GAMAL Work Phone: [facility] Comment on above: Hyponatremia (Primar y Dx); Primary hypertension Start: 06-23-2024 End: 06-23-2024 ambulatory EMILIE CORNELIUS [facility] Ambulatory Start: 06-20-2024 End: 06-20-2024 ambulatory JAMES L [facility] Start: 06-17-2024 End: 06-17-2024 Emergency department patient visit Franko Murray MD Work Phone: [facility] Comment on above: Urinary tract infect ion without hematuria, site unspecified (Primary Dx); Hyponatremia Start: 04-25-2024 End: 04-25-2024 Patient encounter procedure Josh CASTREJON Work Phone: [facility] Comment on above: Acute bronchitis, un specified organism (Primary Dx) Start: 04-13-2024 End: 04-13-2024 Patient encounter procedure Josh CASTREJON Work Phone: [facility] Comment on above: Other infective acut e otitis externa of left ear (Primary Dx) Start: 04-15-2023 End: 04-15-2023 Office outpatient visit 25 minutes James Sahu DO Work Phone: [facility] [place] [facility] Comment on above: Type 2 diabetes anny itus without complication, without long- term current use of insulin ([facility]) (Primary Dx); Recurrent major depressive disorder, in partial remission ([facility]); Seizures ([facility]); Primary insomnia; Acute diffuse otitis externa of left ear Start: 09-05-2022 Rx Renewal James Elliott user Work Phone: [facility] Work Phone: Start: 08-21-2022 FUV, Provider: James Sahu, Status: Pen, Time: 3:20 PM James Sahu Work Phone: [facility] Work Phone: Start: 08-21-2022 Office outpatient vi sit 25 minutes James Sahu Work Phone: [facility] Work Phone: Start: 08-21-[address] James Sahu Facility:[id number] Start: 08-20-2022 Chart Update James Robertserrossi user Work Phone: [facility] [place] [facility] Work Phone: Start: 08-18-2022 Chart Update James Robertserrossi user Work Phone: [facility] [place] [facility] Work Phone: Start: 08-14-2022 AUDIT James Robertserrossi user Work Phone: [facility] Work Phone: Start: 07-14-2022 Office outpatient vi sit 15 minutes James Sahu Work Phone: [facility] Work Phone: Start: 07-14-2022 ambulatory Ms. Emilie Cornelius Fa cility:[id number] Start: 06-25-2022 Chart Update James L Oberha user Work Phone: [facility] [place] [facility] DO Work Phone: Start: 06-13-2022 Chart Update James L Oberha user Work Phone: [facility] [place] 3 DO Work Phone: Start: 06-12-2022 FUV, Provider: Emilie Cornelius, Status: Pen, Time: 3:30 PM James Kristy Oberhauser Work Phone: [facility] [place] 3 DO Work Phone: Start: 06-12-2022 Office outpatient vi sit 15 minutes Jamesbety Robertserhauser Work Phone: IY-[id number]-Pxwovsy 230 DO Work Phone: Start: 06-12-2022 ambulatory Ms. Emilie Cornelius Fa cility:[id number] Start: 06-09-2022 AUDIT James L Oberha user Work Phone: [facility] [place] 3 DO Work Phone: Start: 05-29-2022 AUDIT James L Oberha user Work Phone: [facility] Work Phone: Start: 05-29-2022 Office outpatient vi sit 15 minutes Jamesbety Robertserhauser Work Phone: QW-Sviyhrv-Idvouxf 230 DO Work Phone: Start: 05-29-2022 ambulatory . Emilie Cornelius Fa cility:[id number] Start: 05-23-2022 Office outpatient vi sit 15 minutes James Robertserhauser Work Phone: [facility] [place] 3 DO Work Phone: Start: 05-23-[address] James Sahu Facility:[id number] Start: 05-19-2022 AUDIT James Taterossi user Work Phone: [facility] [place] [facility] Work Phone: Start: 05-16-[address] James Sahu Facility:[id number] Start: 05-16-2022 FUHOSP, Provider: James Sahu, Status: Pen, Time: 1:20 PM James Sahu Work Phone: [facility] [place] 3 DO Work Phone: Start: 05-16-2022 Office outpatient vi sit 25 minutes James Sahu Work Phone: [facility] Work Phone: Start: 05-14-2022 Chart Update James Elliott user Work Phone: [facility] [place] 3 DO Work Phone: Start: 04-30-2022 AUDIT James Taterossi user Work Phone: [facility] [place] 3 DO Work Phone: Start: 04-28-2022 End: 04-30-2022 Evaluation and management of inpatient Dr. James Sahu Facility:[id number] Start: 04-11-[address] James Sahu Facility:[id number] Start: 04-11-2022 Patient encounter procedure James Sahu Work Phone: [facility] [place] [facility] Work Phone: Start: 03-20-[address] James aShu Facility:[id number] Start: 12-06-2021 AUDIT James Elliott user Work Phone: [facility] [place] [facility] Work Phone: Start: 12-03-2021 Chart Update James Elliott user Work Phone: [facility] Work Phone: Start: 09-10-2021 Office outpatient ne w 45 minutes James Kristy Adelina Work Phone: [facility] Work Phone: Start: 10-23-2020 End: 10-23-2020 Emergency department patient visit MALCOM SHEETS [facility] Start: 10-23-2020 End: 10-23-2020 Emergency department patient visit Malcom Sheets [place] Work Phone: [facility] Start: 09-28-2018 End: 09-28-2018 ambulatory [facility] Facility:[facility] Procedures Date Procedure Procedure Detail Performing Clinician Start: 06-16-2025 Ct abdomen & pelvis w/contrast material Bren Kowalski DO Work Phone: Start: 06-16-2025 Comprehensive metabo lic panel Bren Kowalski DO Work Phone: Start: 06-16-2025 Urinalysis microscop ic panel - Urine Qualitative by Automated Bren Kowalski DO Work Phone: Start: 06-16-2025 Urnls dip stick/tabl et reagent auto microscopy Bren Kowalski DO Work Phone: Start: 10-24-2024 Study Interpretation of outside study Suzanne Arroyo 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 Work Phone: Start: 10-11-2024 Mammography Rad Film Start: 07-08-2024 Urnls dip stick/tabl et rgnt auto w/o microscopy Odell Mock PA-C Work Phone: Start: 06-17-2024 Ct abdomen & pelvis w/contrast material Karissa Ellington PA-C Work Phone: Start: 06-17-2024 Urinalysis microscop ic panel - Urine Qualitative by Automated Karissa BRENNAN-C Work Phone: Start: 06-17-2024 Urnls dip stick/tabl et reagent auto microscopy Karissa Correaroman PANDA Work Phone: Start: 06-17-2024 Comprehensive metabo lic panel Karissa Ellington AMARILYS Work Phone: Start: 04-25-2024 POCT SARS-COV-2/FLU/ RSV PCR SYMPTOMATIC Josh Olivares Kimberly [employer] 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 Work Phone: Start: 02-29-2024 Lipid 1996 panel - S oma or Plasma Josh Ayalablossom [employer] 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 Work Phone: Start: 08-18-2022 Lipid 1996 panel - S oma or Plasma James Sahu DO Work Phone: Start: 10-23-2020 Iaadiadoo influenza [facility] Start: 10-23-2020 COVID-19, MOLECULAR Gar tatiana Misaelbety Sheets Jose Work Phone: Start: 10-23-2020 Urnls dip stick/tabl et rgnt auto w/o microscopy [facility] Start: 10-23-2020 Blood gases any comb ination ph pco2 po2 co2 hco3 [facility] Start: 10-23-2020 Albumin serum plasma /whole blood [facility] Start: 10-23-2020 Blood count complete auto&auto difrntl wbc Malcom Sheets Jose Work Phone: Start: 12-31-2017 Mammography Jaems gordon DO Work Phone: Start: 12-19-2016 Lumbar puncture CHAOHUA SUKHDEV Procedure on back James moarlez Work Phone: Plan of Treatment Date Care Activity Detail Author Start: 10-11-2027 Screening for malign ant neoplasm of colon [facility] Start: 10-11-2025 Screening for malign ant neoplasm of breast Mammogram [facility] Start: 09-07-2025 End: 09-07-2025 Patient encounter procedure 09/07/2025 10:50 AM EST Office Visit [facility] [address] [facility] [address] [place] [address] Suzanne Arroyo, VINYL 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 [address] [facility], [place] [address] [place] [address] [facility] Start: 07-19-2025 Hemoglobin A1c measurement Diabetes: Hemoglobin A1C [facility] Start: 06-07-2025 End: 06-07-2026 CBC W Auto Differential panel - Blood CBC and Auto Differential Lab Routine Pre-operative clearance Expected: 06/07/2025 (Approximate), Expires: 06/07/2026 [facility] Work Phone: Comment on above: Expected: 06/07/2025 (Approximate), Expires: 06/07/2026 Start: 06-07-2025 End: 06-07-2026 Comprehensive metabolic 2000 panel - Serum or Plasma Comprehensive metabolic panel Lab Routine Hyponatremia Expected: 06/07/2025 (Approximate), Expires: 06/07/2026 [facility] Service Area Work Phone: Comment on above: Expected: 06/07/2025 (Approximate), Expires: 06/07/2026 Start: 06-07-2025 End: 06-07-2026 Prothrombin time (PT) Protime-INR Lab Routine Pre-operative clearance Expected: 06/07/2025 (Approximate), Expires: 06/07/2026 [facility] Work Phone: Comment on above: Expected: 06/07/2025 (Approximate), Expires: 06/07/2026 Start: 04-19-2025 End: 04-19-2026 Comprehensive metabolic 2000 panel - Serum or Plasma [facility] Work Phone: Comment on above: Expected: 04/19/2025 (Approximate), Expires: 04/19/2026 Start: 04-19-2025 End: 04-19-2026 Hemoglobin A1c/Hemoglobin.total in Blood [facility] Service Area Work Phone: Comment on above: Expected: 04/19/2025 (Approximate), Expires: 04/19/2026 Start: 04-19-2025 End: 04-19-2026 TSH with reflex to Free T4 if abnormal [facility] Work Phone: Comment on above: Expected: 04/19/2025 (Approximate), Expires: 04/19/2026 Start: 04-10-2025 COVID-19 Vaccine ( season) COVID-19 Vaccine () [facility] Start: 04-10-2025 COVID-19 Vaccine ( season) COVID-19 Vaccine () [facility] Start: 04-10-2025 Influenza vaccination Influenza Vacc ine (#1) [facility] Start: 04-06-2025 End: 04-06-2025 Patient encounter procedure [facility] Start: 03-15-2025 Hemoglobin A1c measurement Diabetes: Hemoglobin A1C [facility] Start: 03-10-2025 Influenza vaccination Influenza Vacc ine (#1) [facility] Start: 02-28-2025 Lipid panel Lipid Panel [facility] Start: 10-11-2024 End: 10-11-2024 Patient encounter procedure 10/11/2024 2:00 PM EST Appointment [address] [id number] [facility] Start: 09-28-2024 End: 09-28-2025 Cologuard colon cancer screening Cologuard colon cancer screening Lab Routine Screening for colon cancer Expected: 09/28/2024 (Approximate), Expires: 09/28/2025 [facility] Service Area Work Phone: Comment on above: Expected: 09/28/2024 (Approximate), Expires: 09/28/2025 Start: 09-28-2024 End: 11-26-2025 DBT Breast - bilateral BI mammo bilateral screening tomosynthesis Imaging Routine Encounter for screening mammogram for malignant neoplasm of breast Expected: 09/28/2024, Expires: 11/26/2025 [facility] Work Phone: Comment on above: Expected: 09/28/2024 , Expires: 11/26/2025 Start: 09-20-2024 Hemoglobin A1c measurement Diabetes: Hemoglobin A1C [facility] Start: 07-26-2024 End: 07-26-2024 Patient encounter procedure 07/26/2024 12:40 PM EST Office Visit [facility] [address] [place] [id number] James Sahu DO [address] [facility] [place] [address] [facility] Start: 07-23-2024 End: 06-23-2025 Basic metabolic 2000 panel - Serum or Plasma Basic metabolic panel Lab Routine Hyponatremia Expected: 07/23/2024 (Approximate), Expires: 06/23/2025 [facility] Service Area Work Phone: Comment on above: Expected: 07/23/2024 (Approximate), Expires: 06/23/2025 Start: 07-21-2024 End: 07-21-2024 Patient encounter procedure 07/21/2024 2:00 PM EST Office Visit [facility] [address] [place] [id number] Emilie Cornelius, [employer] 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, [facility] [address] [facility] [address] [place] [address] [facility] Start: 06-09-2024 End: 06-09-2024 Patient encounter procedure 06/09/2024 1:20 PM EDT Office Visit [facility] [address] [place] [id number] James Sahu DO [address] [facility] [place] [address] [facility] Start: 05-31-2024 Hemoglobin A1c measurement Diabetes: Hemoglobin A1C [facility] Start: 04-10-2024 COVID-19 Vaccine ( season) COVID-19 Vaccine ( season) [facility] Start: 04-10-2024 COVID-19 Vaccine () COVID-19 Vaccine ( season) [facility] Start: 04-10-2024 Influenza vaccination Influenza Vacc ine (#1) [facility] Start: 08-18-2023 Lipid panel Lipid Panel [facility] Start: 06-11-2023 Hemoglobin A1c measurement Diabetes: Hemoglobin A1C [facility] Start: 04-15-2023 End: 04-15-2024 Comprehensive metabolic 2000 panel - Serum or Plasma Comprehensive Metabolic Panel Lab Routine Type 2 diabetes mellitus without complication, without long-term current use of insulin (CMS/HCC) Expected: 04/15/2023 (Approximate), Expires: 04/15/2024 [facility] Work Phone: Comment on above: Expected: 04/15/2023 (Approximate), Expires: 04/15/2024 Start: 04-15-2023 End: 04-15-2024 Hemoglobin A1c/Hemoglobin.total in Blood Hemoglobin A1C Lab Routine Type 2 diabetes mellitus without complication, without long-term current use of insulin (CMS/HCC) Expected: 04/15/2023 (Approximate), Expires: 04/15/2024 [facility] Service Area Work Phone: Comment on above: Expected: 04/15/2023 (Approximate), Expires: 04/15/2024 Start: 04-15-2023 End: 04-15-2024 Lipid 1996 panel - Serum or Plasma Lipid Panel Lab Routine Type 2 diabetes mellitus without complication, without long-term current use of insulin (CMS/HCC) Expected: 04/15/2023 (Approximate), Expires: 04/15/2024 [facility] Work Phone: Comment on above: Expected: 04/15/2023 (Approximate), Expires: 04/15/2024 Start: 04-10-2023 Influenza vaccination Influenza Vacc ine (#1) [facility] Start: 11-20-2022 FUV, Provider: James Sahu, Status: Pen, Time: 10:40 AM FUV, Provider: James Sahu, Status: Pen, Time: 10:40 AM [facility] [place] [facility] Work Phone: Start: 10-02-2022 FUV, Provider: James Sahu, Status: Pen, Time: 3:00 PM FUV, Provider: James Sahu, Status: Pen, Time: 3:00 PM [facility] Work Phone: Start: 08-21-2022 FUV, Provider: James Sahu, Status: Pen, Time: 3:20 PM FUV, Provider: James Sahu, Status: Pen, Time: 3:20 PM [facility] [place] [facility] Work Phone: Start: 08-18-2022 FUV, Provider: Emilie Cornelius, Status: Pen, Time: 10:00 AM FUV, Provider: Emilie Cornelius, Status: Pen, Time: 10:00 AM [facility] 3 DO Work Phone: Start: 07-10-2022 FUV, Provider: Emilie Cornelius, Status: Pen, Time: 2:15 PM FUV, Provider: Emilie Cornelius, Status: Pen, Time: 2:15 PM [facility] 230 DO Work Phone: Start: 06-12-2022 FUV, Provider: Emilie Cornelius, Status: Pen, Time: 3:30 PM FUV, Provider: Emilie Cornelius, Status: Pen, Time: 3:30 PM [facility] 230 DO Work Phone: Start: 05-29-2022 FUV, Provider: Emilie Cornelius, Status: Pen, Time: 10:00 AM FUV, Provider: Emilie Cornelius, Status: Pen, Time: 10:00 AM [facility] 3 DO Work Phone: Start: 05-23-2022 NPV, Provider: Emilie Cornelius, Status: Pen, Time: 10:30 AM NPV, Provider: Emilie Cornelius, Status: Pen, Time: 10:30 AM [facility] [place] [facility] Work Phone: Start: 05-19-2022 NPV, Provider: Tom Cornelius, Status: Pen, Time: 10:30 AM NPV, Provider: Tom Cornelius, Status: Pen, Time: 10:30 AM [facility] [place] 3 DO Work Phone: Start: 05-16-2022 FUVHOSP, Provider: James Sahu, Status: Pen, Time: 1:20 PM FUVHOSP, Provider: James Sahu, Status: Pen, Time: 1:20 PM [facility] [place] 3 DO Work Phone: Start: 12-24-2021 Urine screening for protein Diabetes: Urine Protein Screening [facility] Start: 12-10-2021 FUV, Provider: James Sahu, Status: Pen, Time: 2:20 PM FUV, Provider: James Sahu, Status: Pen, Time: 2:[address] [facility] Work Phone: Start: 2019 Zoster Vaccines (1 of 2) Zoste r Vaccines (1 of 2) [facility] Start: 12-31-2018 Screening for malign ant neoplasm of breast Mammogram [facility] Start: 1991 DTaP/Tdap/Td Vaccine s (1 - Tdap) DTaP/Tdap/Td Vaccines (1 - Tdap) [facility] Start: 1990 Screening for malign ant neoplasm of cervix [facility] Start: 02-14-1988 Hepatitis B Vaccines (1 of 3 - 19+ 3-dose series) Hepatitis B Vaccines (1 of 3 - 19+ 3-dose series) [facility] Start: 02-14-1988 Pneumococcal vaccination Pneum ococcal Vaccine (1 of 2 - PCV) [facility] Start: 1987 Hepatitis C screening Hepatitis C Sc reening [facility] Start: 1979 Diabetic foot examination Diabetes: Foot Exam [facility] Start: 1979 Glaucoma screening Diabetes: R etinopathy Screening [facility] Start: 1975 Pneumococcal Vaccine : Pediatrics (0 to 5 Years) and At-Risk Patients (6 to 64 Years) (1 - PCV) Pneumococcal Vaccine: Pediatrics (0 to 5 Years) and At-Risk Patients (6 to 64 Years) (1 - PCV) [facility] Start: 1975 Pneumococcal Vaccine : Pediatrics (0 to 5 Years) and At-Risk Patients (6 to 64 Years) (1 of 2 - PCV) Pneumococcal Vaccine: Pediatrics (0 to 5 Years) and At-Risk Patients (6 to 64 Years) (1 of 2 - PCV) [facility] Start: 1970 MMR Vaccines (1 of 1 - Standard series) MMR Vaccines (1 of 1 - Standard series) [facility] Start: 1969 COVID-19 Vaccine (#1) COVID-19 Vacci ne (#1) [facility] Start: 1969 Hepatitis B Vaccines (1 of 3 - 3-dose series) Hepatitis B Vaccines (1 of 3 - 3-dose series) [facility] Start: 1969 HIV screening HIV Screening [facility] Start: 1969 Screening for malign ant neoplasm of colon [facility] Start: 1969 Yearly Adult Physical Yearly Adult P hysical [facility] End: 06-17-2024 Bacteria identified in Urine by Culture [facility] Work Phone: Comment on above: Once (Lab) for 1 Occ urrences starting 06/17/2024 until 06/17/2024 Bacteria identified in Urine by Culture Urine Culture Microbiology Routine Acute cystitis without hematuria Dysuria 07/08/2024 10:51 AM EST [facility] Service Area Work Phone: End: 06-16-2025 Bacteria identified in Urine by Culture Urine Culture Microbiology Routine Once (Lab) for 1 Occurrences starting 06/16/2025 until 06/16/2025 [facility] Work Phone: Comment on above: Once (Lab) for 1 Occ urrences starting 06/16/2025 until 06/16/2025 Bacteria identified in Urine by Culture Urine Culture Microbiology STAT 06/16/2025 1:05 AM EST [facility] Work Phone: End: 10-11-2024 DBT Breast - bilateral [facility] Service Area Work Phone: Comment on above: Once for 1 Occurrenc es starting 10/11/2024 until 10/11/2024 End: 06-17-2024 Extra Urine [employer] Work Phone: Comment on above: Once for 1 Occurrenc es starting 06/17/2024 until 06/17/2024 End: 06-16-2025 Extra Urine [employer] Extra Urine [employer] Lab Timed Once for 1 Occurrences starting 06/16/2025 until 06/16/2025 [facility] Work Phone: Comment on above: Once for 1 Occurrenc es starting 06/16/2025 until 06/16/2025 End: 06-17-2024 Urinalysis complete W Reflex Culture panel - Urine [facility] [facility] [facility] Work Phone: Comment on above: Once (Lab) for 1 Occ urrences starting 06/17/2024 until 06/17/2024 End: 06-16-2025 Urinalysis complete W Reflex Culture panel - Urine Urinalysis with Reflex Culture Lab STAT Once (Lab) for 1 Occurrences starting 06/16/2025 until 06/16/2025 [facility] Service Area Work Phone: Comment on above: Once (Lab) for 1 Occ urrences starting 06/16/2025 until 06/16/2025 Urinalysis complete W Reflex Culture panel - Urine Urinalysis with Reflex Culture Lab STAT 06/16/2025 1:05 AM [facility] Work Phone: Payers Date Payer Category Payer Managed Care (Private) 1.2.8 [id number] 2022 Unknown 2018 Self-pay 2014 Unknown [employer] PPO [id number] 2014-Present [id number] 2014 Unknown [id number] 1969 Unknown [id number] 2.16.840.1.234435.3.579.2.9 02 1969 Unknown [id number] 2.16.840.1.489195.3.579.2.1 069 1969 Unknown [id number] 2.16.840.1.813977.3.579.2.3 56 1969 Unknown [id number] 2.16.840.1.460949.3.579.2.3 56 1969 Unknown [id number] 2.16.840.1.503161.3.579.2.3 56 1969 Unknown [id number] 2.16.840.1.432448.3.579.2.3 56 1969 Unknown [id number] 2.16.840.1.623809.3.579.2.3 56 1969 Unknown [id number] 2.16.840.1.302904.3.579.2.3 56 1969 Unknown [id number] 2.16.840.1.348965.3.579.2.3 56 1969 Unknown [id number] 2.16.840.1.205673.3.579.2.3 56 1969 Unknown [id number] 2.16.840.1.906018.3.579.2.1 245 1969 Unknown [id number] 2.16.840.1.771794.3.579.2.1 245 1969 Unknown [id number] 2.16.840.1.846399.3.579.2.1 244 1969 Unknown [id number] 2.16.840.1.872787.3.579.2.1 244 1969 Unknown [id number] 2.16.840.1.742600.3.579.2.1 244 1969 Unknown [id number] 2.16.840.1.775367.3.579.2.1 244 1969 Unknown [id number] 2.16.840.1.784676.3.579.2.1 243 1969 Unknown [id number] 2.16.840.1.419242.3.579.2.1 243 1969 Unknown [id number] 2.16.840.1.335293.3.579.2.1 243 Unknown [id number] 2.16.840.1.485930.3.579.2.9 21 Unknown [id number] 2.16.840.1.759819.3.579.2.4 62 Unknown [id number] 2.16.840.1.068070.3.579.2.4 62 Unknown [id number] 2.16.840.1.411873.3.579.2.4 62 Unknown [id number] 2.16.840.1.697002.3.579.2.4 62 Unknown [id number] 2.16.840.1.226967.3.579.2.4 62 Unknown [id number] 2.16.840.1.886095.3.579.2.4 62 Unknown [id number] 2.16.840.1.597462.3.579.2.4 62 Unknown [id number] 2.16.840.1.046283.3.579.2.4 62 Unknown [id number] 2.16.840.1.283304.3.579.2.4 62 Unknown [id number] 2.16.840.1.152662.3.579.2.4 62 Unknown [id number] 2.16.840.1.287996.3.579.2.4 62 Unknown [id number] 2.16.840.1.460791.3.579.2.4 62 Unknown [id number] 2.16.840.1.213346.3.579.2.4 62 Unknown [id number] 2.16.840.1.501838.3.579.2.4 62 Unknown [id number] 2.16.840.1.512059.3.579.2.4 62 Unknown [id number] 2.16.840.1.665935.3.579.2.4 62 Unknown [id number] 2.16.840.1.772908.3.579.2.4 62 Unknown [id number] 2.16.840.1.707678.3.579.2.4 62 Unknown [id number] 2.16.840.1.516302.3.579.2.4 62 Unknown [id number] 2.16.840.1.925368.3.579.2.4 62 Unknown [id number] 2.16.840.1.413952.3.579.2.4 62 Unknown [id number] 2.16.840.1.563748.3.579.2.4 62 Unknown [id number] 2.16.840.1.680370.3.579.2.4 62 Unknown [id number] 2.16.840.1.971488.3.579.2.4 62 Unknown [id number] 2.16.840.1.639081.3.579.2.4 62 Unknown [id number] 2.16.840.1.298357.3.579.2.4 62 Unknown [id number] 2.16.840.1.137843.3.579.2.4 62 Unknown [id number] 2.16.840.1.095769.3.579.2.4 62 Social History Date Type Detail Facility Unknown if ever smoked [facility] Start: 10-23-2020 End: 12-01-2023 Tobacco smoking status NHIS Current every day smoker [facility] History of tobacco use Cigarette Smoker [facility] Start: 10-23-2020 End: 06-07-2025 Cigarettes smoked current (pack per day) - Reported [facility] Start: 10-23-2020 End: 06-07-2025 Alcohol intake Current drinker of alcohol (finding) [facility] Start: 1970 Sex Assigned At Not on file [facility] Start: 04-03-2024 End: 10-11-2024 Exposure to SARS-CoV-2 (event) Not sure [facility] Start: 04-15-2023 End: 06-23-2024 Tobacco use and exposure Smokeless tobacco non-user [facility] Work Phone: Start: 04-15-2023 End: 06-07-2025 Tobacco use panel [facility] Work Phone: Start: 06-23-2024 Tobacco smoking status NHIS Ex-smoker [facility] History of tobacco use [facility] Start: 1970 Sex assigned at Female [facility] Start: 10-11-2024 Gender identity Identifies as female gender (finding) [facility] Work Phone: Start: 10-11-2024 Sexual orientation Heterosexual (finding) [facility] Work Phone: Start: 04-19-2025 Alcohol Comment rarely [facility] Work Phone: Start: 07-05-2022 Sex Female [facility] Start: 07-05-2022 Sex Female (finding) [facility] Medical Equipment Procedure Code Equipment Code Equipment Origin al Text Equipment Identifier Dates twice a day. [id number] Start: 12-05-2021 2 strips 2 times a day as needed (Blood sugars). [id number] Start: 11-26-2023 TEST SUGARS 1-2 TIMES DAILY [id number] Start: 11-26-2023 2 strips once da grupo as needed (Blood sugars). [id number] Start: 06-21-2024 TEST SUGARS 2 TI MES DAILY [id number] Start: 06-21-2024 Functional Status Date Assessment Result Facility 06-16-2025 Functional status [facility] 06-16-2025 [facility] Work Phone: 06-16-2025 Aiken - suicide s everity rating scale screener - recent [C-SSRS] [facility] Work Phone: 06-07-2025 Functional status 139/81 [facility] Work Phone: 06-07-2025 Vital signs 70 06/07/2025 10 :17 AM Emily Ochoa MA [facility] Work Phone: 06-07-2025 Patient [facility] ionnaire 2 item (PHQ-2) [Reported] [facility] Work Phone: 06-07-2025 [facility] Work Phone: 04-19-2025 Patient [facility] ionnaire 2 item (PHQ-2) [Reported] [facility] Work Phone: [facility] Work Phone: [facility] Clinical Notes 08-29-2021 to 06-19-2025 Bren Kowalski, DO - 06/16/2025 12:50 AM Brittany Kowalski, DO - 06/16/2025 12:50 AM LUCÍA Beebe - 06/07/2025 10:10 AM Kailee Koch APRN-ARMANDO - 04/19/2025 2:20 PM EDTAttachments Note Date & Type Note Facility 06-19-2025 Note [facility] Medical Records Department [address] [place] [address] History Physical Exam 06/19/252107 MR#: [id number] Acct: [id number] Name: REINIER MENDOZA Rep #: [id number] : 1970 55 From: Servando To MD PCP: Suzanne Cruz, DIRECTOR HEDIS-C Status:REG ER Location: ED HPI - General General Date of Admission: 06/19/25 Date of Service: 06/19/25 Chief Complaint: Back pain HPI Narrative REINIER MENDOZA, is a 55 F who presents to the emergency room with chief complaint of back pain. Patient has significant past medical history of lumbar stenosis with neurogenic claudication, hypercholesterolemia TIA, PTSD, bipolar disorder, hypertension, diabetes who is status post laminectomy done by Dr. Wynn on June 12, 2025. Patient states she moved the wrong way several days ago and noticed that she has had increased pain since that time. She went to the [facility] and workup including CT at that time was found to have a UTI and was sent home with antibiotics. Today she continued to have further pain and was sent to the emergency room here by Dr. Wynn's advice patient denies any urinary or fecal incontinence. Patient denies any chest pain, shortness of breath, nausea vomiting or diarrhea. Laboratory studies were show white blood cell count of 8.6, hemoglobin 11.1, hematocrit 31.9, platelets 340, sodium 122, potassium 4.4, chloride 85, bicarb 23, BUN 16, creatinine 0.49, glucose 159, AST 19, ALT 18, albumin 3.7. 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 And continued spinal stenosis of L2-3. Patient was started on vancomycin and Rocephin in the emergency room and given pain medication. Patient will be admitted to the medical surgical floor and Dr. Wynn will be consulted. [facility] Medical History Lumbar stenosis with neurogenic claudication [...] Medications ???Medication ???Instructions ???Recorded ???Last Taken ???Type multivitamin 1 tab PO DAILY SUPPLEMENT 09/22/22 06/10/25 History aspirin 81 mg tablet 81 mg PO DAILY [facility] 06/19/25 History magnesium 250 mg tablet 500 mg PO QHS CRAMPS 11/20/2309/03 History turmeric root extract 500 mg 1,000 mg PO BID SUPPLEMENT 4 06/10/25 History capsule metformin 500 mg tablet,extended 1,000 mg PO BID DIABETES 12/17/23 06/19/25 History release 24 hr bupropion HCl 300 mg 24 hr tablet, 300 mg PO QAM PTSD 30 days #30 t abs 05/23/25 06/19/25 Rx extended release venlafaxine 150 mg 150 mg PO DAILY BIPOLAR 30 days 06/18/25 Rx capsule,extended release 24 hr #30 caps aripiprazole 15 mg tablet 15 mg PO QHS BIPOLAR 05/26/2505/04 History omega 3-hgf-aft-fish oil 1,200 mg 2 cap PO DAILY SUPPLEMENT 5 06/10/25 History (144 mg-216 mg) capsule (Fish Oil) pioglitazone 30 mg tablet 30 mg PO QHS DIABETES 05/26/2505/04 History vitamin D3 125 mcg (5,000 1 cap PO DAILY SUPPLEMENT 05/26/25 06/10/25 History unit)-vitamin K2 100 mcg capsule acetaminophen 500 mg tablet 1,000 mg (2 x 500 mg) PO Q6H #30 1 08/13/24 06/19/25 Rx tabs meloxicam 15 mg tablet 15 mg PO DAILY #30 tabs 06/13/25 1 08/18/24 Rx methocarbamol 500 mg tablet 750 mg (1.5 x 500 mg) PO TID PRN 1 08/13/24 06/19/25 Rx Pain/spasms #30 tabs oxycodone 5 mg tablet 2.5 - 5 mg (0.5 - 1 x 5 mg) PO Q6H 06/13/25 06/19/25 Rx PRN pain 7 days #28 tabs carbamazepine 200 mg tablet 400 mg PO BID BIPOLAR 06/19/2506/03 History carvedilol 12.5 mg tablet 12.5 mg PO BID 06/19/25 06/19/25 H istory cephalexin 500 mg capsule 500 mg PO 4X/DAY 06/19/25 06/19/25 History ketorolac 10 mg tablet 10 mg PO Q6H PRN PRN pain 06/19/25 06/19/25 History melatonin 5 mg capsule 5 mg PO QHS PRN 06/19/25 06/18/25 History nifedipine 90 mg tablet,extended 90 mg PO DAILY 06/19/25 06/19/25 H istory release valsartan 160 mg tablet 160 mg PO DAILY 06/19/25 06/19/25 History Allergy/AdvReac Type Severity Reaction Status Date / Time azithromycin Allergy Mild Hives Verified 06/19/25 11: (more content not included)... [facility] 06-16-2025 Physician Emergency department Note HPI Chief [...] Color, Urine Light-Yellow Appearance, Urine Clear Specific [place], Urine 1.011 pH, Urine 7.0 Protein, Urine [...] Abnormality Status --------- ------ Urinalysis with Reflex C...[[id number]] Abnormal Final result Extra Urine Childress Tube[[id number]] Please view results for these tests on [...] Randy Painter 06/16/2025 3:11 AM Dictation workstation: [id number] ED Course & MDM Diagnoses as of [...] Drug use: Never Bren Kowalski DO 06/16/25317 [facility] Work Phone: 06-16-2025 Emergency department Note [...] Color, Urine Light-Yellow Appearance, Urine Clear Specific [place], Urine 1.011 pH, Urine 7.0 Protein, Urine [...] Abnormality Status --------- ------ Urinalysis with Reflex C...[[id number]] Abnormal Final result Extra Urine Child[employer] Tube[[id number]] Please view results for these tests on [...] Randy Painter 06/16/2025 3:11 AM Dictation workstation: [id number] ED Course & MDM Diagnoses as of [...] Kowalski DO 06/16/25317 documented in this encounter [facility] Work Phone: 06-12-2025 Note [facility] Medical Records Department [address] [place] [address] History Physical Exam 06/12/25 0716 MR#: [id number] Acct: [id number] Name: KAYLINREINIER Manjit Rep #: [id number] : 1970 55 From: Yair Benedict MD PCP: REGGIE Arias Status:[facility] Location: [place] [address] History and Physical Date of Admission: 06/12/25 MR#: [id number] Acct: [id number] Name: REINIER MENDOZA Rep #: [id number] : 1970 Provider: Dr. Yair Benedict MD Age/Sex: 55/F Location: [facility] Status: Signed Intake Vital Signs 03/23/2513:41 05/23/2513:49 [...] TID PRN pain 05/26/25 06/08/25 History omega 1-zpa-csw-fish oil 1,200 mg 2 cap PO DAILY [...] you fallen in the past year?: Yes [facility] Medical History (Updated 06/08/25 @ 15:43 by [...] and the decisions made by me, Dr. aYir Benedict MD 06/08/25 9215. Part of today???s visit was documented by Maliha Mckeon MA, acting as scribe. REINIER MENDOZA is a 55 year old F here today for lumbar spine pre op. She is scheduled for L2-4 anterior and posterior f (more content not included)... [facility] 06-07-2025 History of Present illness Narrative Subjective Patient ID: Reinier Mendoza is a 55 y.o. female who presents for Pre-op Exam (Scheduled for 06/12). HPI Here today for surgical clearance, surgery is scheduled for 06/[address] Wynn in [place] she is getting an L2-L4 fusion. In April her BP was elevated in the office and her coreg was increased to 12.5 BID. She follows with psych in [place] for bipolar, she tried to reduce her [...] Sitting) Pulse 70 Ht 1.689 m (5' 6.5) Wt 107 kg (236 lb 8 oz) [...] -likely due to Carbamezapine dose, psych in [place] just reduced her dose and she got manic, so that is not an option for treatment -has seen nephrology in the past and was diagnosed hyponatremia due to medication Pending lab work will addend this note for surgical clearance documented in this encounter [facility] Work Phone: 04-19-2025 History of Present illness [...] 169/96 Pulse 78 Ht 1.689 m (5' 6.5) Wt 111 kg (245 lb 11.2 oz) [...] Father's Sister 37 documented in this encounter [facility] Work Phone: 09-28-2024 History of Present illness [...] Sitting) Pulse 83 Ht 1.676 m (5' 6) Wt 108 kg (238 lb 9.6 oz) [...] diabetic eye exam, she is going to [facility] -Lab work ordered -February due for physical HTN -Continue nifedipine 90mg -Continue losartan 100 mg daily -CMP done today -Coreg 6.25mg daily Bipolar disease -Follows with psych every 2 months -Continue abilify, effexor, tegretol and lunesta documented in this encounter [facility] Work Phone: 07-08-2024 History of Present illness [...] (Temporal) Resp 16 Ht 1.676 m (5' 6) Wt 107 kg (235 lb) SpO2 98% [...] hematuria [R30.0] Dysuria documented in this encounter [facility] Work Phone: 06-23-2024 Evaluation + Plan note Associated Problem(s): Hyponatremia Had significant decrease in her sodium to 125 on the , was given 3 tablets of sodium chloride, [...] and make further recommendations at that time [facility] Work Phone: 06-23-2024 Miscellaneous Notes Associated Problem(s): Hyponatremia Had significant decrease in her sodium to 125 on the , was given 3 tablets of sodium chloride, [...] at that time documented in this encounter [facility] Work Phone: 06-23-2024 History of Present illness [...] Hypertension-uncontrolled Diabetes mellitus type 2 Bipolar disorder LUCÍA Campo DNP 06/23/24 2:41 PM documented in this encounter [facility] Work Phone: 06-23-2024 Instructions LUCÍA Campo DNP - 06/23/2024 2:30 PM EST 6 -16 ounce bottles of water a day Recheck labs in one month. documented in this encounter [facility] Work Phone: 06-17-2024 Hospital Discharge instructions Karissa [...] through Care Everywhere.Urinary Tract Infection, Adult ED (Surinamese)Hyponatremia (Surinamese)documented in this encounter [facility] Work Phone: 04-25-2024 History of Present illness [...] Review Audit Reviewed by Mackenzie Schneider MA ([employer]) on 04/25/24 at 1203 Medication Order Taking? Sig Documenting Provider Last Dose Status amoxicillin-pot clavulanate (Augmentin) 875-125 mg tablet [id number] Yes Take 1 tablet (875 mg) by mouth 2 times a day for 10 days. James Sahu, DO Taking Active ARIPiprazole (Abilify) 15 mg tablet [id number] Yes Take 0.5 tablets (7.5 mg) by mouth once daily. Historical Provider, Taking Active ascorbic acid (Vitamin C) 1,000 mg tablet [id number] Yes Take 1 tablet (1,000 mg) by mouth once daily. James Sahu, DO Taking Active aspirin 81 mg EC tablet [id number] Yes Take 1 tablet (81 mg) by mouth once daily. James Sahu, DO Taking Active blood sugar diagnostic (Accu-Chek Guide test strips) strip [id number] Yes 2 strips 2 times a day as needed (Blood sugars). James Sahu, DO Taking Active carBAMazepine (TEGretol) 200 mg tablet [id number] Yes Take 2 tablets (400 mg) by mouth 2 times a day. James Sahu DO Taking Active carvedilol (Coreg) 6.25 mg tablet [id number] Yes Take 1 tablet (6.25 mg) by mouth 2 times a day with meals. James Sahu DO Taking Active cholecalciferol (Vitamin D-3) 50 MCG (2000 UT) tablet [id number] No Take 1 tablet (2,000 Units) by mouth 2 times a day. James Sahu DO Not Taking Active ciprofloxacin-dexamethasone (Ciprodex) otic suspension [id number] Administer 4 drops into the left ear 2 times a day for 7 days. Josh Harris, 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 04/20/24 2359 cyanocobalamin, vitamin B-12, (Vitamin B-12) 1,000 mcg tablet extended release [id number] No Take 1 tablet (1,000 mcg) by mouth once daily. James Sahu DO Not Taking Active doxepin (SINEquan) 25 mg capsule [id number] Yes Take 1 capsule (25 mg) by mouth once daily at bedtime. Historical Provider, Taking Active glipiZIDE (Glucotrol) 5 mg tablet [id number] No Take 1 tablet (5 mg) by mouth 2 times a day before meals. Patient not taking: Reported on 04/13/2024 James Sahu DO Not Taking Active ibuprofen 200 mg tablet [id number] No Take by mouth every 6 (six) hours. James L Oberhauser, DO Not Taking Active lancets misc [id number] Yes TEST SUGARS 1-2 TIMES DAILY James Sahu, DO Taking Active losartan (Cozaar) 100 mg tablet [id number] Yes Take 1 tablet (100 mg) by mouth once daily. James Sahu, DO Taking Active magnesium gluconate (Magonate) 27.5 mg magne- sium (500 mg) tablet [id number] No Take 1 tablet (27.5 mg) by mouth once daily. James Sahu, DO Not Taking Active melatonin 3 mg tablet [id number] No Take 1 tablet (3 mg) by mouth once daily at bedtime. James Sahu, DO Not Taking Active metFORMIN XR (Glucophage-XR) 500 mg 24 hr tablet [id number] Yes Take 2 tablets (1,000 mg) by mouth 2 times a day with meals. Do not crush, chew, or split. James Sahu, DO Taking Active mirtazapine (Remeron) 15 mg tablet [id number] No Take 1 tablet (15 mg) by mouth once daily at bedtime. James Sahu, DO Not Taking Active multivit-min/iron/folic/lutein (CENTRUM SILVER WOMEN ORAL) [id number] No Take 1 tablet by mouth in the morning. James Sahu, DO Not Taking Active NIFEdipine ER (NIFEdipine CC) 90 mg 24 hr tablet [id number] Yes Take 1 tablet (90 mg) by mouth once daily. James Sahu, DO Taking Active pioglitazone (Actos) 30 mg tablet [id number] Yes Take 1 tablet (30 mg) by mouth once daily. James Sahu, DO Taking Active turmeric root extract 500 mg tablet [id number] No Take 2 tablets by mouth in the morning. James Sahu, DO Not Taking Active venlafaxine XR (Effexor-XR) 150 mg 24 hr capsule [id number] No Take 1 capsule (150 mg) by mouth 2 times a day. James Sahu, DO Not Taking Active venlafaxine XR (Effexor-XR) 75 mg 24 hr capsule [id number] Yes TAKE 1 CAPSULE BY MOUTH ONCE DAILY ALONG WITH THE 150 MG FOR TOTAL DAILY DOSE OF 225MG Historical MD Fartun Taking Active zinc sulfate (Zincate) 220 (50 Zn) MG capsule [id number] No Take by mouth. James Sahu, DO [...] Reinier's care are: none Josh Harris CNP [facility] [phone] documented in this encounter [facility] Work Phone: 04-13-2024 History of Present illness Narrative [facility] GARETH NOTE: Name: Reinier Mendoza, 54 y.o. CSN:[id number] PCP: James Sahu DO ALL: Allergies Allergen Reactions Azithromycin Unknown Sulfa [...] by Josh Harris CNP Advanced Practice Provider [facility] I was present with the [employer] student who participated in the documentation of this note. I have personally seen and re-examined the patient and performed the medical decision-making components (assessment and plan of care). I have reviewed the [employer] student documentation and verified the findings in the note as written with additions or exceptions as stated in the body of this note. Alex BRENNAN-S documented in this encounter [facility] Work Phone: 04-15-2023 History of Present illness [...] - jardiance and farxgia too expensive , tetountaylorro she states was $50 a month - [...] without long-term current use of insulin (CMS/HCC) [F33.41] Recurrent major depressive disorder, in partial remission (CMS/HCC) [R56.9] Seizures (CMS/HCC) [F51.01] Primary insomnia documented in this encounter [facility] Work Phone: 08-21-2022 History of Present illness [...] is cooking more and watching her carbs. [facility] Work Phone: 06-11-2022 History of [...] hour and have not been resulted yet. WG-Kbubuga-Bxhydqw 230 DO Work Phone: 05-25-2022 History of [...] to prevent significant issues w/ sodium levels. UO-Hzddwey-Garwmhw 230 DO Work Phone: 05-14-2022 History of [...] that she depends on her son and zdbfdzwd-fc-pdg to give her a ride [facility] Work Phone: 04-30-2022 Note Send Summary: Discharge Summary Providers: Provider RoleProvider Name ReferringAjit Torrez AttendingAjit Torrez [facility] Nurse PractitionerKaterina Akbar Megan L Note Recipients: James Sahu, Discharge: Summary: Admission Date: .28-Apr-2022 10:14:00 Discharge Date: 30-Apr-2022 Attending Physician at Discharge: jazmín Admission Reason: low sodium Final Discharge Diagnoses: Hyponatremia, UTI (urinary tract infection) Procedures: none Condition at Discharge: satisfactory Disposition at Discharge: home Vital Signs: T PRBPMAPSpO2 Value35.31899648/8596% Date/Time04/30 7:149 7:149 7:149 7:149 7:14 Range(35C - 36C ) (67 - 82 ) (16 - 18 ) (133 - 163 )/ (77 - 90 ) (94% - 99% ) Date: Weight/Scale Type:Height: 28-Apr-2022 14:1897.7 kg / uav838.5 cm Physical Exam: General Appearance: AAO x [...] day (at bedtime) (more content not included)... Merged With [facility] 04-28-2022 Note History of Present I llness: [...] this patient. Objective: Objective Information: T PRBPMAPSpO2 Value35.69466615/3081772% Date/Time04/28 10: 13: 13: 13: 13: 13:00 [...] Recent Lab Results: Results: CBC: 04/28/2022 11:03 \ Hgb / \ 14.0 / WBC Plt 4.6 213 / Hct \ / 40.9 \ RBC: 4.63 MCV: 88 Neutrophil %: 64.5 BMP: 04/28/2022 12:12 NA+ Cl- BUN / 125 L 94 L 9 / Glucose 257 H K+ HCO3- Creat \ 3.6 23 0.37 L \ Calcium : 7.8 L Anion Gap : [...] 99& on RA (more content not included)... Merged With [facility] 04-28-2022 History of Present illness Narrative Patient [...] is not the best with her diet. [facility] Work Phone: 08-29-2021 Note HNO ID: [id number] Author: Antionette Wilkerson OD Service: ? Author Type: MANAGER QUANTITATIVE Type: Progress Notes Filed: 08/29/2021 3:32 PM Note Text: ASSESSMENT/PLAN: 1. Myopia, bilateral - ICD9: 367.1, ICD10: H52.13 (primary diagnosis) 2. Regular astigmatism, bilateral - ICD9: 367.21, ICD10: H52.223 3. Presbyopia - ICD9: 367.4, ICD10: H52.4 Trial framed the updated saeed and she appreciated the update. Will refer for glaucoma evaluation. Recommended yearly exams. Antionette Wilkerson OD [facility] Evaluation note Diagnosis Type 2 diabetes mellitus without complication, without long-term current use of insulin (CMS/HCC)- Primary Recurrent major depressive disorder, in partial remission (CMS/HCC) Seizures ([facility]/HCC) Other convulsions Primary insomnia Persistent disorder of initiating or maintaining sleep Acute diffuse otitis externa of left ear documented in this encounter [facility] Work Phone: Evaluation note* Diagnosis Urinary tract infection without hematuria, site unspecified- Primary Hyponatremia Hyposmolality and/or hyponatremia documented in this encounter [facility] Work Phone: Evaluation note* Diagnosis Hyponatremia- Primary Hyposmolality and/or hyponatremia Primary hypertension Unspecified essential hypertension documented in this encounter [facility] Work Phone: Evaluation note* Diagnosis Hyponatremia- Primary Hyposmolality and/or hyponatremia Primary hypertension Unspecified essential hypertension Acute cystitis without hematuria- Primary Dysuria documented in this encounter [facility] Work Phone: Evaluation note* Diagnosis Other infective acute otitis externa of left ear- Primary documented in this encounter [facility] Work Phone: Evaluation note* Diagnosis Acute bronchitis, unspecified organism- Primary documented in this encounter [facility] Work Phone: Evaluation note* Diagnosis Hyponatremia- Primary Hyposmolality and/or hyponatremia Primary hypertension Unspecified essential hypertension Screening for colon cancer- Primary Special screening for malignant neoplasms, colon Folliculitis Other specified disease of hair and hair follicles Encounter for screening mammogram for malignant neoplasm of breast Acute low back pain without sciatica, unspecified back pain laterality documented in this encounter [facility] Work Phone: Evaluation note* Diagnosis Hyponatremia- Primary Hyposmolality and/or hyponatremia Primary hypertension Unspecified essential hypertension Encounter for screening mammogram for malignant neoplasm of breast documented in this encounter [facility] Work Phone: Evaluation note* Diagnosis Hyponatremia- Primary Hyposmolality and/or hyponatremia Primary hypertension Unspecified essential hypertension Type 2 diabetes mellitus without complication, without long-term current use of insulin- Primary Primary hypertension Unspecified essential hypertension documented in this encounter [facility] Work Phone: Evaluation note* Diagnosis Hyponatremia- Primary Hyposmolality and/or hyponatremia Primary hypertension Unspecified essential hypertension Primary hypertension- Primary Unspecified essential hypertension Hyponatremia Hyposmolality and/or hyponatremia Pre-operative clearance Unspecified pre-operative examination documented in this encounter [facility] Work Phone: Evaluation note* Diagnosis Hyponatremia- Primary Hyposmolality and/or hyponatremia Primary hypertension Unspecified essential hypertension UTI (urinary tract infection), uncomplicated- Primary Urinary tract infection, site not specified Periumbilical abdominal pain Abdominal pain, periumbilic documented in this encounter [facility] Work Phone: History of Present illness Narrative* [...] She has a history of HTN, multiple mini-strokes, Type II DM, Thyroid disease, has a [...] she has been seeing Dr Gomes, in [place], [place], she has been seeing him for years, she has been off Klonopin since February of 2021, she is currently on Mirtazapine 7.5mg po daily, effexor er 150mg pobid * Does not know her fathers side history of any of her siblings. [facility] Work Phone: History of Present [...] the month that she was routinely in [id number] and 180s, at this time she is running in the 140s to the 160s systolically [facility] Work Phone: Hospital Discharge instructions* Attachments The following attachments cannot be sent through Care Everywhere. * Abdominal pain in adults ED discharge instructions (Surinamese) [facility] Reejpy for referral (narrative)* Consultation (Routine) - Authorized Specialty Diagnoses / Procedures Referred By Daysi yan Referred To Contact Primary Care Procedures Follow Up In Primary Care - Established James Sahu DO [address] [facility] [place] [address] Referral ID Status Reason Start Date Expiration Date V isits Requested Visits Authorized [id number] Authorized 04/15/2023 10/12/2023 1 1 [facility] Work Phone: Reason for visit Narrative* Imaging (Routine) - Authorized Specialty Diagnoses / Procedures Referred By Contac t Referred To Contact Radiology Diagnoses Encounter for screening mammogram for malignant neoplasm of breast Procedures BI mammo bilateral screening tomosynthesis Suzanne Arroyo, VINYL 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 [address] [facility] [place] [address] Phone: tel: fax: Referral ID Status Reason Start Date Expiration Date Visits Requested Visits Authorized [id number] Authorized Perform Procedure 09/28/2024 09/28/2025 1 1 [facility] Work Phone: Hospital Course Discharge Summary No Discharge Summary Informa tion Discharge Instructions Discharge Instructions No Discharge Instructions Assessments Diagnosis Acute URI- Primary Acute upper respiratory infections of unspecified site Dehydration Hyperglycemia Other abnormal glucose Hyponatremia Hyposmolality and/or hyponatremia Advance Directives No Advanced Directives Records FoundDocuments on File Type Date Recorded Patient Unit Secy Expl anation Advance Directives and Livin g [...] * 51 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 Cornelius Thursday * DIRECTOR HEDIS- Hospital follow-up * Lab review 05/14/2022 Patient [...] UTI UTI sx for about 1 w andreafski. Pt has back pain, frequency. Reason Comments Earache Left ear pain x 1 da y Reason Comments URI Sob, congestion, lia rrhea x 1 day Reason Comments Establish Care Sinusitis Cyst Specialty Diagnoses / Procedures Referred By Daysi t Referred To Contact Diagnoses Acute low back pain without sciatica, unspecified back pain laterality Suzanne Arroyo, VINYL 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 [address] [facility] [place] [address] Phone: tel: fax: Referral ID Status Reason Start Date Expiration Date V isits Requested Visits Authorized [id number] Pending Review 09/28/2024 09/28/2025 1 1 Reason Comments Follow-up 6 month follow up ma eds labs orderPHQ2/9:18 Reason Comments Pre-op Exam [...] secti on and content) ED PROVIDER NOTE [facility] NAME: Reinier Mendoza AGE: 50 y.o. : 1970 VISIT DATE: 10/23/2020 CSN: [id number] PCP: Physician No Chief Complaint Patient presents [...] No rash Neuro: Nl mental status No BRYANT Hem: No bleeding/clotting problems Psych: Nl behavior except as otherwise noted Special isolation precautions are in place with signage outside this patient's room. This home care associate performs hand hygiene and enters the patient [...] C) Oral 92 18 99 % 5' 6.5 102.1 kg (225 lb) VS Reviewed. Constitutional: Non-toxic Head: Normocephalic Atraumatic Eyes: PERRL EOMi No hemorrhage No injection No discharge ENT: ? Ears ? ? Nose ? Nasal congestion ? Throat/Mouth ? Mucus membranes moist ? No pharyngeal injection ? No oral / oropharyngeal edema ? No tonsillar enlargement ? No exudate ? No signs of SCALE MANAGER / deep-space infection ? No significant gingivitis [...] file Gets together: Not on file Attends faith service: Not on file Active member of [...] C) Oral 92 18 99 % 5' 6.5 102.1 kg (225 lb) Physical Exam Laboratory [...] 7.39 [GN] 1844 pCO2, Oliver: 41.6 [GN] 1844 pO2, Oliver(!): 48 [GN] 1844 HCO3, Oliver: 25.2 [GN] 1844 Lactate: 1.9 [GN] 1844 Glucose(!): 203 [GN] 1844 Sodium(!): 132 [GN] 1855 Proteinuria, otherwise unremarkable POC Urinalysis Dipstick, Auto(!) [GN] 1855 Modestly elevated GGT with otherwise normal LFTs POC Liver Panel Plus(!) [GN] 190 POC Rapid Influenza A Ag: Not Detected [GN] 190 POC Influenza B Ag: Not Detected [GN] 191 SARS-CoV-2: Not Detected [GN] 1932 Patient is [...] has not been specified. Malcom Garcia MD 10/23/20 193 Pt arrives with reports of fatigue and I think I have a UTI because my urine is dark and foamy. Pt alert & oriented x4 and appears in no distress. Pt respirations equal and unlabored. Pt able to talk in clear and complete sentences. documented in this encounter INFORMATION SOURCE (unrecogn ized section and content) DATE CREATED AUTHOR 10/29/2020 [facility] DATE CREATED AUTHOR AUTHOR'S ORGANIZ ATION 10/31/2021 [facility] DATE CREATED AUTHOR AUTHOR'S ORGANIZ ATION 05/13/2022 [facility] DATE CREATED AUTHOR AUTHOR'S ORGANIZ ATION 07/02/2022 [facility] DATE CREATED AUTHOR AUTHOR'S ORGANIZ ATION 10/01/2022 [employer] DATE CREATED AUTHOR AUTHOR'S ORGANIZ ATION 03/12/2023 [facility] DATE CREATED AUTHOR AUTHOR'S ORGANIZ ATION 06/08/2025 [facility] DATE CREATED AUTHOR AUTHOR'S ORGANIZ ATION 06/09/2025 [facility] DATE CREATED AUTHOR AUTHOR'S ORGANIZ ATION 06/10/2025 [facility] DATE CREATED AUTHOR AUTHOR'S ORGANIZ ATION 06/19/2025 [facility] DATE CREATED AUTHOR AUTHOR'S ORGANIZ ATION 06/22/2025 [facility] Care Teams (unrecognized sec tion and content) Software Engineer Relationship Specialty Start Date End Date James Sahu DO [address] [facility] [place] [address] PCP - General 09/10/21 James Sahu DO [address] [facility] [place] [address] PCP - MMO ACO PCP 11/08/21 Software Engineer Relationship Specialty Start Date End Date James Sahu DO [address] [facility] [place] [address] PCP - General 09/10/21 James Sahu DO [address] [facility] [place] [address] PCP - MMO ACO PCP 11/08/21 Software Engineer Relationship Specialty Start Date End Date James Sahu DO [address] [facility] [place] [address] PCP - General 09/10/21 James Sahu DO [address] [facility] [place] [address] PCP - MMO ACO PCP 11/08/21 Software Engineer Relationship Specialty Start Date End Date James Sahu DO [address] [facility] Physician [facility] [place] [address] PCP - General 09/10/21 James Sahu, DO [address] [facility] Physician [facility] [place] [address] PCP - MMO ACO PCP 11/08/21 Software Engineer Relationship Specialty Start Date End Date James Sahu, [address] [place] [address] PCP - General 09/10/21 James Sahu, DO [address] [facility] Physician [facility] [place] [address] PCP - MMO ACO PCP 11/08/21 Software Engineer Relationship Specialty Start Date End Date James Sahu, [address] [facility] Physician [facility] [place] [address] PCP - General 09/10/21 James Sahu, DO [address] [facility] Physician [facility] [place] [address] PCP - MMO ACO PCP 11/08/21 Software Engineer Relationship Specialty Start Date End Date James Sahu, DO [address] [facility] [place] [address] PCP - General 09/10/21 ObJames moralez DO [address] [facility] [place] [address] PCP - MMO ACO PCP 11/08/21 Software Engineer Relationship Specialty Start Date End Date James Sahu DO [address] [facility] [place] [address] PCP - General 09/10/21 James Sahu DO [address] [facility] [place] [address] PCP - MMO ACO PCP 11/08/21 Software Engineer Relationship Specialty Start Date End Date James Sahu PCP - General 09/10/21 James Sahu PCP - MMO ACO PCP 11/08/21 Software Engineer Relationship Specialty Start Date End Date Emilie Cornelius APRN-CNP, DNP [address] [place] [id number] PCP - MMO ACO PCP 01/08/25 Suzanne Arroyo APRN-WORKGROUP LEADER [address] [facility], [address] [address] [place] [id number] PCP - General Family Medicine 03/27/25 Software Engineer Relationship Specialty Start Date End Date Emilie Cornelius APRN-CNP, DNP [address] [address] PCP - MMO ACO PCP 01/08/25 Suzanne Arroyo, VINYL 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 [address] [facility] [address] [place] [address] PCP - General Family Medicine 03/27/25 Software Engineer Relationship Specialty Start Date End Date Suzanne Arroyo APRN-ARMANDO [address] [facility] [address] [place] [address] PCP - General Family Medicine 03/27/25 Scheduled [...] dose 1347 (Given - Provid er: Sade Foote) ketorolac (Toradol) injection 30 mg (COMPLETED) 30 [...] BE BASED ON THE PRIMARY CLINICAL RECORDS. [employer] provides no warranty or guarantee of the accuracy or completeness of information in this document.
[2025-06-24] MEDS: Lactated Ringers 1,000 ML 150 ML IV (14:17)
--- NOTE | 2025-06-24 14:22 | EX.ED.DYSGE1 ---
HPI History of Present Illness Chief Complaint: General Illness Narrative Narrative: Patient is a 55-year-old female with past medical history of migraines, TIA, back pain with recent surgery, bipolar disorder who presents to the emergency department as she cannot care for herself at home. States that she went home recently and was offered to be placed into a facility however family members at home thought they could take care of her. They note that it is requiring a significant mount of care that they cannot provide for her therefore they brought her back to be placed into facility which she is agreeable with. Patient states that she is taking her IV antibiotics at home as prescribed for her infection that she was recently diagnosed with as well. [facility] Medical History Migraines Lumbar stenosis with neurogenic claudication Obesity (BMI 30-39.9) Loss of hearing Wears glasses Post-menopausal Marijuana use Thyroid disease Ambulates with cane Walker as ambulation aid High cholesterol Back pain TIA (transient ischemic attack) Syncope Dietary restriction Vapes nicotine containing substance Former smoker CPAP (continuous positive airway pressure) dependence History of pain when walking History of echocardiogram Lumbar stenosis Cervical radiculopathy PTSD (post-traumatic stress disorder) Bipolar 1 disorder Vitamin D deficiency Neuropathy Hypertension Diabetes type 2, controlled Chronic bronchitis Arthritis Home Medications ?Medication ?Instructions ?Recorded ?Last Taken ?Type multivitamin 1 tab PO DAILY SUPPLEMENT 09/22/22 06/10/25 History aspirin 81 mg tablet 81 mg PO DAILY HEART HEALTH 11/20/23 06/19/25 History magnesium 250 mg tablet 500 mg PO QHS CRAMPS 11/20/23 06/10/25 History turmeric root extract 500 mg 1,000 mg PO BID SUPPLEMENT 11/20/23 06/10/25 History capsule metformin 500 mg tablet,extended 1,000 mg PO BID DIABETES 12/17/23 06/19/25 History release 24 hr bupropion HCl 300 mg 24 hr tablet, 300 mg PO QAM PTSD 30 days #30 tabs 05/23/25 06/19/25 Rx extended release venlafaxine 150 mg 150 mg PO DAILY BIPOLAR 30 days 05/23/25 06/18/25 Rx capsule,extended release 24 hr #30 caps aripiprazole 15 mg tablet 15 mg PO QHS BIPOLAR 05/26/25 06/18/25 History omega 3-jkn-qoe-fish oil 1,200 mg 2 cap PO DAILY SUPPLEMENT 05/26/25 06/10/25 History (144 mg-216 mg) capsule (Fish Oil) pioglitazone 30 mg tablet 30 mg PO QHS DIABETES 05/26/25 06/18/25 History vitamin D3 125 mcg (5,000 1 cap PO DAILY SUPPLEMENT 05/26/25 06/10/25 History unit)-vitamin K2 100 mcg capsule acetaminophen 500 mg tablet 1,000 mg (2 x 500 mg) PO Q6H #30 06/13/25 06/19/25 Rx tabs meloxicam 15 mg tablet 15 mg PO DAILY #30 tabs 06/13/25 06/18/25 Rx methocarbamol 500 mg tablet 750 mg (1.5 x 500 mg) PO TID PRN 06/13/25 06/19/25 Rx Pain/spasms #30 tabs oxycodone 5 mg tablet 2.5 - 5 mg (0.5 - 1 x 5 mg) PO Q6H 06/13/25 06/19/25 Rx PRN pain 7 days #28 tabs carbamazepine 200 mg tablet 400 mg PO BID BIPOLAR 06/19/25 06/19/25 History carvedilol 12.5 mg tablet 12.5 mg PO BID 06/19/25 06/19/25 History melatonin 5 mg capsule 5 mg PO QHS PRN 06/19/25 06/18/25 History nifedipine 90 mg tablet,extended 90 mg PO DAILY 06/19/25 06/19/25 History release valsartan 160 mg tablet 160 mg PO DAILY 06/19/25 06/19/25 History cefepime 2 gram solution for 2 g IV Q8 41 days #123 ea 06/22/25 Unknown Rx injection vancomycin 1.75 gram intravenous 1.75 g IV Q12H 41 days 06/22/25 Unknown Rx solution alprazolam 0.25 mg tablet (Xanax) 0.25 mg PO DAILY PRN anxiety #10 06/23/25 Unknown Rx tabs oxycodone 5 mg tablet 5 mg PO Q4H PRN PRN Pain Score 06/23/25 Unknown Rx 4-10 3 days #15 tabs Allergy/AdvReac Type Severity Reaction Status Date / Time azithromycin Allergy Mild Hives Verified 06/24/25 13:00 Sulfa (Sulfonamide Allergy Mild Other Verified 06/24/25 13:00 Antibiotics) Family History Other Alcoholism Anxiety Arthritis defect Breast cancer CVA (cerebral vascular accident) Cancer Depression Diabetes Hypertension Mental disorder Myocardial infarction Suicide attempt Surgical History History of lumbar fusion (~06/12/25) Hx of colonoscopy Hx of dilation and curettage Hx of decompressive lumbar laminectomy History of lumbar fusion Social History Smoking Status: Former smoker Smokeless tobacco user: other alcohol intake: current alcohol intake frequency: other details: Rarley 3-4 a year substance use type: does not use ROS ROS ED ROS Narrative Constitutional: Denies any fevers or chills Cardiovascular: Denies chest pain or palpitations Respiratory: Denies coughing wheezing shortness of breath Abdomen: Denies abdominal pain nausea vomit diarrhea : Denies urinary symptoms Neurological: Denies any numbness, weeks, tingling Musculoskeletal: Complains of back pain as noted above s Skin: Denies rashes or lesion EXAM Physical Exam Narrative Exam Narrative: General: Patient was lying in bed did appear to be uncomfortable from her back pain Head: Atraumatic, normocephalic Eyes: PERRL bilaterally, EOMI bilaterally, no conjunctival injection noted Neck:, Supple, trachea midline Cardiovascular: Regular rate and rhythm Respiratory: Clear to auscultation bilaterally Abdomen: Soft, nondistended, nontender to palpation Neurological: Patient following commands as she was at [facility] years 2024 Skin: Warm, dry, intact PICC line in place Const Vital Signs: 06/24/25 13:00 06/24/25 13:03 06/24/25 13:42 Temperature 98.2 F 98.2 F Temperature Source Oral Oral Pulse Rate 93 93 Respiratory Rate 18 18 Respiratory Effort Normal Respiratory Pattern Normal Blood Pressure 175/101 H 175/101 H Blood Pressure Mean 125 125 Pulse Ox 99 99 Oxygen Delivery Method Room Air Room Air 06/24/25 14:03 06/24/25 14:03 Temperature 98.6 F 98.6 F Temperature Source Oral Pulse Rate 92 92 Respiratory Rate 20 H 20 H Respiratory Effort Respiratory Pattern Blood Pressure 177/96 H 177/96 H Blood Pressure Mean 123 123 Pulse Ox 98 98 Oxygen Delivery Method Room Air MDM MDM MDM Narrative Medical decision making narrative: Patient is a 55-year-old female who presents to the emergency department the chief complaint of back pain and inability to care for self at home. On the differential diagnose includes but limited to chronic back pain, failure to thrive. Discussed case with hospitalist Dr. Galindo who accept patient for admission. Patient will have basic blood work obtained will be given morphine, Zofran, be placed on LR drip for hydration. Nursing came to me asking for antispasmatic therefore she was given Norflex she will be given this IM secondary to not being compatible with LR drip. Notified the patient she is agreeable this plan all question concerns answered at bedside. She is not due for her IV antibiotics until 2119. Discharge Plan Dx/Rx/DC Orders Clinical Impression: Back pain, Unable to care for self Disposition Disposition: Acute Care Hospital [facility]
--- OUTSIDE RECORDS SUMMARY | 2025-06-24 14:29 | XMS RPT_ITS | CCD ---
Author Organization [facility] Team Providers Care Hydraulic Press Servicer Name Role Phone ANUSHKA CORDERO Unavailable SUKHDEV, [...] Admitting Physician ANUSHKA CORDERO Primary Care Provider [phone] ANUSHKA CORDERO Primary Care Provider No, Physician Primary Care Provider Unavailabl e MALCOM GARCIA Attending Un available MALCOM GARCIA Admitting Un available CRISTY, PHYSICIAN Primary Care Unavailable James Sahu Unavailable Unavailable Unavailable Unavailable Unavailable Adelina, Dr. Rizo [...] lable Oberhauser, James L Unavailable Unavailable Young MANGLE ROLL OPERATOR-TARGET WORKER, DNP, Emilie M Unavailable Cruz MANGLE ROLL OPERATOR-TARGET WORKER, Suzanne B Primary Care Provider OBERHAUSER, JAMES L Primary Care Unavailable CRUZ, SUZANNE B Referring Unavailable CRUZ, SUZANNE B Primary Care Unavailable Young MANGLE ROLL OPERATOR-TARGET WORKER, GAMAL, Emilie M Unavailable Cruz MANGLE ROLL OPERATOR-TARGET WORKER, Suzanne B Primary Care Provider LYNN KOCH [...] Primary Care Unavailable Cruz, Suzanne Referring Unavailable SeeseDemario L Attending Unavailable Cruz, [...] to adverse reactions to drug 5 Unknown [facility] (20 sources) Azithromycin; 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: [azithromycin] Drug Allergy 3 Unknown [facility] (20 sources) Sulfonamides (Antibiotic); 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: [Sulfa Antibiotics] Allergy to drug (finding) [facility] Primary Care Work Phone: (2 sources) Azithromycin Drug Allergy 8 [facility] ([place] Rep[place] (1 source) valsartan Drug Allergy 8 [facility] [place] (1 source) wool Drug allergy (disorder) 8 [facility] [place] Medications Current Medications Medication Drug Class(es) [...] 60 Refills: 5 Ordered: 14-Jul-2022 Reynaldo DNP, MANGLE ROLL OPERATOR-TARGET WORKER, Emilie Start : 21-Nov-2020 Active Start: 11-21-2020 take 1 tablet by jacques th once daily Carvedilol 3.125 MG Oral Tablet TAKE 1 TABLET BY MOUTH EVERY DAY Quantity: 90 Refills: 3 Ordered: 10-Sep-2021 Adelina DOJaems Start : 21-Nov-2020 Active Start: 08-21-2020 carvediloL [...] Start: 09-10-2021 take 1 capsule by mo [facility] once daily D3-50 1.25 MG (83829 UT) Oral Capsule TAKE 1 CAPSULE ONCE [...] : 23-May-2022 Active omega-3 acid ethyl esters (longterm) 1000 mg oral capsule (3 sources) omega-3 [...] End: 03-16-2021 sodium chloride (PF) (NS) fl [facility] 5 mL 1 ml triamcinolone acetonide 40 [...] Drug Class(es) Dates Sig (Normalized) Sig (Original) [id number] 200 actuat albuterol 0.09 mg/actuat metered dose [...] Start: 02-04-2023 take 1 capsule by mo [facility] once daily at bedtime doxepin (SINEquan) 10 [...] James Sahu DO Start : 10-Sep-2021 Active Zinc (11 [...] 3 04-15-2023 Chronic Other aftercare (1 source) [facility] (current) use of oral hypoglycemic drugs; 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 Comment on above: Performed By: #### L 100.0100, L500.2500 ####[facility] [address] [place], [address] Calcium [Mass/Vol] 9.2 mg/dL Normal 7.6-11.0 [facility] Comment on above: Performed By: #### L 100.0100, L500.2500 ####[facility] [address] [place], [address] Chloride [Moles/Vol] 93 mmol/L Low 98-[address] [facility] Comment on above: Performed By: #### L 100.0100, L500.2500 ####[facility] [address] [place], [address] CO2 [Moles/Vol] 23.5 mmol/L Normal 21.0-32.[address] [facility] Comment on above: Performed By: #### L 100.0100, L500.2500 ####[facility] [address] [place], [address] Creatinine [Mass/Vol] 0.46 mg/dL Low 0.70-1.[address] [facility] Comment on above: Performed By: #### L 100.0100, L500.2500 ####[facility] [address] [place], [address] ECRCL 166.67 ml/min Normal 50-[address] [facility] Comment on above: Performed By: #### L 100.0100, L500.2500 ####[facility] [address] [place], [address] GAP 10 Normal 5-[address] [facility] Comment on above: Performed By: #### L 100.0100, L500.2500 ####[facility] [address] [place], [address] GFR/1.73 sq M.predicted among non-blacks MDRD (S/P/Bld) [Vol rate/Area] 112 mL/min/{1.73_m2} Normal >[address] [facility] Comment on above: Result Comment: mL/m in/1.73m2 CKD-EPI Creatinine Equation (2020) Performed By: #### L 100.0100, L500.2500 ####[facility] [address] [place], [address] Glucose [Mass/Vol] 173 mg/dL High 70-99 [facility] Comment on above: Performed By: #### L 100.0100, L500.2500 ####[facility] [address] [place], [address] Potassium [Moles/Vol] 4.4 mmol/L Normal 3.3-5.[address] [facility] Comment on above: Performed By: #### L 100.0100, L500.2500 ####[facility] [address] [place], [address] Sodium [Moles/Vol] 127 mmol/L Low 133-145 [facility] Comment on above: Performed By: #### L 100.0100, L500.2500 ####[facility] [address] [place], [address] Urea nitrogen [Mass/Vol] 9 mg/dL Normal 4-[address] [facility] Comment on above: Performed By: #### L 100.0100, L500.2500 ####[facility] [address] [place], [address] CBC W/Diff, Automatedon 06-10 Absolute Lymph 1.89 X10 3/uL Normal 0.83-4.[address] [facility] Comment on above: Performed By: #### L 100.0100, L500.2500 ####[facility] [address] [place], [address] Absolute Neut 4.1 X10 3/uL Normal 2.0-7.[address] [facility] Comment on above: Performed By: #### L 100.0100, L500.2500 ####[facility] [address] [place], [address] Basophils/100 WBC (Bld) 0.9 % Normal 0-[address] [facility] Comment on above: Performed By: #### L 100.0100, L500.2500 ####[facility] [address] [place], [address] Eosinophils/100 WBC (Bld) 3.0 % Normal 0-[address] [facility] Comment on above: Performed By: #### L 100.0100, L500.2500 ####[facility] [address] [place], [address] Erythrocyte distribution width (RBC) [Ratio] 11.9 % Normal 11.6-14.[address] [facility] Comment on above: Performed By: #### L 100.0100, L500.2500 ####[facility] [address] [place], [address] Hematocrit (Bld) [Volume fraction] 31.8 % Low 37-[address] [facility] Comment on above: Performed By: #### L 100.0100, L500.2500 ####[facility] [address] [place], [address] Hemoglobin (Bld) [Mass/Vol] 10.9 g/dL Low 12.0-15.[address] [facility] Comment on above: Performed By: #### L 100.0100, L500.2500 ####[facility] [address] [place], [address] IG% 0.900 Normal 0.0-0.[address] [facility] Comment on above: Result Comment: IG% - Immature Granulocytes (promyelocytes, myelocytes and metamyelocytes) > 1% indicates that a LEFT SHIFT is Present. Performed By: #### L 100.0100, L500.2500 ####[facility] [address] [place], [address] Lymphocytes/100 WBC (Bld) 27.1 % Normal 19-[address] [facility] Comment on above: Performed By: #### L 100.0100, L500.2500 ####[facility] [address] [place], [address] MCH (RBC) [Entitic mass] 30.0 pg Normal 27.0-32.[address] [facility] Comment on above: Performed By: #### L 100.0100, L500.2500 ####[facility] [address] [place], [address] MCHC (RBC) [Mass/Vol] 34.3 g/dL Normal 32-[address] [facility] Comment on above: Performed By: #### L 100.0100, L500.2500 ####[facility] [address] [place], [address] MCV (RBC) [Entitic vol] 87.6 fL Normal 81-[address] [facility] Comment on above: Performed By: #### L 100.0100, L500.2500 ####[facility] [address] [place], [address] Monocytes/100 WBC (Bld) 9.6 % Normal 0-[address] [facility] Comment on above: Performed By: #### L 100.0100, L500.2500 ####[facility] [address] [place], [address] Neutrophils/100 WBC (Bld) 58.5 % Normal 47-[address] [facility] Comment on above: Performed By: #### L 100.0100, L500.2500 ####[facility] [address] [place], [address] Nucleated RBC (Bld) [#/Vol] 0 10*3/uL Normal 0-[address] [facility] Comment on above: Performed By: #### L 100.0100, L500.2500 ####[facility] [address] [place], [address] Platelet mean volume (Bld) [Entitic vol] 8.4 fL Normal 6.2-12.[address] [facility] Comment on above: Performed By: #### L 100.0100, L500.2500 ####[facility] [address] [place], [address] Platelets (Bld) [#/Vol] 348 10*3/uL Normal 150-[address] [facility] Comment on above: Performed By: #### L 100.0100, L500.2500 ####[facility] [address] [place], [address] RBC (Bld) [#/Vol] 3.63 10*6/uL Low 4.2-5.4 [facility] Comment on above: Performed By: #### L 100.0100, L500.2500 ####[facility] [address] [place], [address] RDW SD 38.5 fl Normal 35.1-43.[address] [facility] Comment on above: Performed By: #### L 100.0100, L500.2500 ####[facility] [address] [place], [address] WBC (Bld) [#/Vol] 7.0 10*3/uL Normal 4.4-11.0 [facility] Comment on above: Performed By: #### L 100.0100, L500.2500 ####[facility] [address] [place], [address] Culture, Blood (WB)on 2024 CUB Blood cultures x2, f rom two different sites No growth in [address] [facility] Comment on above: Performed By: #### L 503.6005, M200.1000 #### [facility] [address] [place], [address] Basic Metabolic Profile (BMP )on 06-21-2025 BUN/CRE 20.5 RATIO High 10-[address] [facility] Comment on above: Performed By: #### L 100.0100, L500.2500 ####[facility] [address] [place], [address] Calcium [Mass/Vol] 9.2 mg/dL Normal 7.6-11.0 [facility] Comment on above: Performed By: #### L 100.0100, L500.2500 ####[facility] [address] [place], [address] Chloride [Moles/Vol] 93 mmol/L Low 98-[address] [facility] Comment on above: Performed By: #### L 100.0100, L500.2500 ####[facility] [address] [place], [address] CO2 [Moles/Vol] 25.1 mmol/L Normal 21.0-32.[address] [facility] Comment on above: Performed By: #### L 100.0100, L500.2500 ####[facility] [address] [place], [address] Creatinine [Mass/Vol] 0.48 mg/dL Low 0.70-1.[address] [facility] Comment on above: Performed By: #### L 100.0100, L500.2500 ####[facility] [address] [place], [address] ECRCL 159.72 ml/min Normal 50-[address] [facility] Comment on above: Performed By: #### L 100.0100, L500.2500 ####[facility] [address] [place], [address] GAP 11 Normal 5-[address] [facility] Comment on above: Performed By: #### L 100.0100, L500.2500 ####[facility] [address] [place], [address] GFR/1.73 sq M.predicted among non-blacks MDRD (S/P/Bld) [Vol rate/Area] 111 mL/min/{1.73_m2} Normal >[address] [facility] Comment on above: Result Comment: mL/m in/1.73m2 CKD-EPI Creatinine Equation (2020) Performed By: #### L 100.0100, L500.2500 ####[facility] [address] [place], [address] Glucose [Mass/Vol] 159 mg/dL High 70-99 [facility] Comment on above: Performed By: #### L 100.0100, L500.2500 ####[facility] [address] [place], [address] Potassium [Moles/Vol] 4.5 mmol/L Normal 3.3-5.[address] [facility] Comment on above: Performed By: #### L 100.0100, L500.2500 ####[facility] [address] [place], [address] Sodium [Moles/Vol] 129 mmol/L Low 133-145 [facility] Comment on above: Performed By: #### L 100.0100, L500.2500 ####[facility] [address] [place], [address] Urea nitrogen [Mass/Vol] 10 mg/dL Normal 4-[address] [facility] Comment on above: Performed By: #### L 100.0100, L500.2500 ####[facility] [address] [place], [address] CBC W/Diff, Automatedon 11-1 Absolute Lymph 1.91 X10 3/uL Normal 0.83-4.[address] [facility] Comment on above: Performed By: #### L 100.0100, L500.2500 ####[facility] [address] [place], [address] Absolute Neut 3.5 X10 3/uL Normal 2.0-7.[address] [facility] Comment on above: Performed By: #### L 100.0100, L500.2500 ####[facility] [address] [place], [address] Basophils/100 WBC (Bld) 0.6 % Normal 0-[address] [facility] Comment on above: Performed By: #### L 100.0100, L500.2500 ####[facility] [address] [place], [address] Eosinophils/100 WBC (Bld) 3.0 % Normal 0-[address] [facility] Comment on above: Performed By: #### L 100.0100, L500.2500 ####[facility] [address] [place], [address] Erythrocyte distribution width (RBC) [Ratio] 12.2 % Normal 11.6-14.[address] [facility] Comment on above: Performed By: #### L 100.0100, L500.2500 ####[facility] [address] [place], [address] Hematocrit (Bld) [Volume fraction] 30.8 % Low 37-[address] [facility] Comment on above: Performed By: #### L 100.0100, L500.2500 ####[facility] [address] [place], [address] Hemoglobin (Bld) [Mass/Vol] 11.1 g/dL Low 12.0-15.[address] [facility] Comment on above: Performed By: #### L 100.0100, L500.2500 ####[facility] [address] [place], [address] IG% 0.800 Normal 0.0-0.[address] [facility] Comment on above: Result Comment: IG% - Immature Granulocytes (promyelocytes, myelocytes and metamyelocytes) > 1% indicates that a LEFT SHIFT is Present. Performed By: #### L 100.0100, L500.2500 ####[facility] [address] [place], [address] Lymphocytes/100 WBC (Bld) 30.2 % Normal 19-[address] [facility] Comment on above: Performed By: #### L 100.0100, L500.2500 ####[facility] [address] [place], [address] MCH (RBC) [Entitic mass] 30.9 pg Normal 27.0-32.[address] [facility] Comment on above: Performed By: #### L 100.0100, L500.2500 ####[facility] [address] [place], [address] MCHC (RBC) [Mass/Vol] 36.0 g/dL Normal 32-[address] [facility] Comment on above: Performed By: #### L 100.0100, L500.2500 ####[facility] [address] [place], [address] MCV (RBC) [Entitic vol] 85.8 fL Normal 81-[address] [facility] Comment on above: Performed By: #### L 100.0100, L500.2500 ####[facility] [address] [place], [address] Monocytes/100 WBC (Bld) 10.1 % High 0-[address] [facility] Comment on above: Performed By: #### L 100.0100, L500.2500 ####[facility] [address] [place], [address] Neutrophils/100 WBC (Bld) 55.3 % Normal 47-[address] [facility] Comment on above: Performed By: #### L 100.0100, L500.2500 ####[facility] [address] [place], [address] Nucleated RBC (Bld) [#/Vol] 0 10*3/uL Normal 0-[address] [facility] Comment on above: Performed By: #### L 100.0100, L500.2500 ####[facility] [address] [place], [address] Platelet mean volume (Bld) [Entitic vol] 8.4 fL Normal 6.2-12.[address] [facility] Comment on above: Performed By: #### L 100.0100, L500.2500 ####[facility] [address] [place], [address] Platelets (Bld) [#/Vol] 323 10*3/uL Normal 150-[address] [facility] Comment on above: Performed By: #### L 100.0100, L500.2500 ####[facility] [address] [place], [address] RBC (Bld) [#/Vol] 3.59 10*6/uL Low 4.2-5.4 [facility] Comment on above: Performed By: #### L 100.0100, L500.2500 ####[facility] [address] [place], [address] RDW SD 37.9 fl Normal 35.1-43.[address] [facility] Comment on above: Performed By: #### L 100.0100, L500.2500 ####[facility] [address] [place], [address] WBC (Bld) [#/Vol] 6.3 10*3/uL Normal 4.4-11.0 [facility] Comment on above: Performed By: #### L 100.0100, L500.2500 ####[facility] [address] [place], [address] Consultation - Infectious Dx on 06-21-2025 Consultation - Infectious Dx [facility] Medical Records Department [address] [place] [address] Consultation - Infectious Dx 06/21/25 1357 MR#: [id number] Acct: [id number] Name: REINIER MENDOZA Rep #: [id number] : 1970 55 From: Kd Bowens MD PCP: Suzanne Arroyo, HE[employer]-C Status:ADM IN Location: [facility] [place] CI317-9 Assessment Plan Assessment/Plan (1) Psoas abscess, right: PLAN: Presenting with back pain s/p 06/12/25 L2-4 oblique interbody fusion with anterior instrumentation by Dr. Benedict. L sided incision healing well. No fever, normal wbc. Had been on started on keflex recently by [place] ED. On empiric vanc/ceftriaxone. If condition worsens, [...] days progressive R flank pain. Went to [place] ED, dx with uti, denies any dysuria. Some difficulty urinating. Sent home with a po keflex course. Came to ED here, CT done, admitted on vanc/ceftriaxone, seen by Dr. Benedict. Pain slightly better today. Some chills. Full ROS performed and neg except as noted above. [facility] Medical History Migraines Lumbar stenosis with neurogenic [...] mg PO QHS BIPOLAR 05/26/2505/04 History omega 4-hyq-urm-fish oil 1,200 mg 2 cap PO DAILY [...] attempt S (more content not included)... Normal [facility] Vancomycin, Trough Levelon 08-21-2024 VANCO, TROUGH 11.0 ug/mL Normal 5.0-15.[address] [facility] Comment on above: Order Comment: 0900 [...] (Ventilator/Healtcare Associated) -Sepsis PLEASE CONTACT PHARMACY SERVICES (#[id number]) FOR INTERPRETATION OF RESULTS. Performed By: #### L 007.2109, M200.1000 #### [facility] [address] [place], [address] Basic Metabolic Profile (BMP )on 06-20-2025 BUN/CRE 25.0 RATIO High 10-[address] [facility] Comment on above: Performed By: #### L 500.2500, L100.0100 ####[facility] [address] [place], [address] Calcium [Mass/Vol] 9.2 mg/dL Normal 7.6-11.0 [facility] Comment on above: Performed By: #### L 500.2500, L100.0100 ####[facility] [address] [place], [address] Chloride [Moles/Vol] 91 mmol/L Low 98-[address] [facility] Comment on above: Performed By: #### L 500.2500, L100.0100 ####[facility] [address] [place], [address] CO2 [Moles/Vol] 24.1 mmol/L Normal 21.0-32.[address] [facility] Comment on above: Performed By: #### L 500.2500, L100.0100 ####[facility] [address] [place], [address] Creatinine [Mass/Vol] 0.51 mg/dL Low 0.70-1.[address] [facility] Comment on above: Performed By: #### L 500.2500, L100.0100 ####[facility] [address] [place], [address] ECRCL 150.33 ml/min Normal 50-[address] [facility] Comment on above: Performed By: #### L 500.2500, L100.0100 ####[facility] [address] [place], [address] GAP 12 Normal 5-[address] [facility] Comment on above: Performed By: #### L 500.2500, L100.0100 ####[facility] [address] [place], [address] GFR/1.73 sq M.predicted among non-blacks MDRD (S/P/Bld) [Vol rate/Area] 110 mL/min/{1.73_m2} Normal >[address] [facility] Comment on above: Result Comment: mL/m in/1.73m2 CKD-EPI Creatinine Equation (2020) Performed By: #### L 500.2500, L100.0100 ####[facility] [address] [place], [address] Glucose [Mass/Vol] 172 mg/dL High 70-99 [facility] Comment on above: Performed By: #### L 500.2500, L100.0100 ####[facility] [address] [place], [address] Potassium [Moles/Vol] 4.5 mmol/L Normal 3.3-5.[address] [facility] Comment on above: Performed By: #### L 500.2500, L100.0100 ####[facility] [address] [place], [address] Sodium [Moles/Vol] 127 mmol/L Low 133-145 [facility] Comment on above: Performed By: #### L 500.2500, L100.0100 ####[facility] [address] [place], [address] Urea nitrogen [Mass/Vol] 13 mg/dL Normal 4-[address] [facility] Comment on above: Performed By: #### L 500.2500, L100.0100 ####[facility] [address] [place], [address] CBC W/Diff, Automatedon 11- Absolute Lymph 1.66 X10 3/uL Normal 0.83-4.[address] [facility] Comment on above: Performed By: #### L 500.2500, L100.0100 ####[facility] [address] [place], [address] Absolute Neut 5.2 X10 3/uL Normal 2.0-7.[address] [facility] Comment on above: Performed By: #### L 500.2500, L100.0100 ####[facility] [address] [place], [address] Basophils/100 WBC (Bld) 0.4 % Normal 0-[address] [facility] Comment on above: Performed By: #### L 500.2500, L100.0100 ####[facility] [address] [place], [address] Eosinophils/100 WBC (Bld) 2.2 % Normal 0-[address] [facility] Comment on above: Performed By: #### L 500.2500, L100.0100 ####[facility] [address] [place], [address] Erythrocyte distribution width (RBC) [Ratio] 12.2 % Normal 11.6-14.[address] [facility] Comment on above: Performed By: #### L 500.2500, L100.0100 ####[facility] [address] [place], [address] Hematocrit (Bld) [Volume fraction] 30.9 % Low 37-[address] [facility] Comment on above: Performed By: #### L 500.2500, L100.0100 ####[facility] [address] [place], [address] Hemoglobin (Bld) [Mass/Vol] 11.0 g/dL Low 12.0-15.[address] [facility] Comment on above: Performed By: #### L 500.2500, L100.0100 ####[facility] [address] [place], [address] IG% 0.800 Normal 0.0-0.[address] [facility] Comment on above: Result Comment: IG% - Immature Granulocytes (promyelocytes, myelocytes and metamyelocytes) > 1% indicates that a LEFT SHIFT is Present. Performed By: #### L 500.2500, L100.0100 ####[facility] [address] [place], [address] Lymphocytes/100 WBC (Bld) 21.1 % Normal 19-[address] [facility] Comment on above: Performed By: #### L 500.2500, L100.0100 ####[facility] [address] [place], [address] MCH (RBC) [Entitic mass] 30.4 pg Normal 27.0-32.[address] [facility] Comment on above: Performed By: #### L 500.2500, L100.0100 ####[facility] [address] [place], [address] MCHC (RBC) [Mass/Vol] 35.6 g/dL Normal 32-[address] [facility] Comment on above: Performed By: #### L 500.2500, L100.0100 ####[facility] [address] [place], [address] MCV (RBC) [Entitic vol] 85.4 fL Normal 81-[address] [facility] Comment on above: Performed By: #### L 500.2500, L100.0100 ####[facility] [address] [place], [address] Monocytes/100 WBC (Bld) 9.9 % Normal 0-[address] [facility] Comment on above: Performed By: #### L 500.2500, L100.0100 ####[facility] [address] [place], [address] Neutrophils/100 WBC (Bld) 65.6 % Normal 47-[address] [facility] Comment on above: Performed By: #### L 500.2500, L100.0100 ####[facility] [address] [place], [address] Nucleated RBC (Bld) [#/Vol] 0 10*3/uL Normal 0-[address] [facility] Comment on above: Performed By: #### L 500.2500, L100.0100 ####[facility] [address] [place], [address] Platelet mean volume (Bld) [Entitic vol] 8.6 fL Normal 6.2-12.[address] [facility] Comment on above: Performed By: #### L 500.2500, L100.0100 ####[facility] [address] [place], [address] Platelets (Bld) [#/Vol] 332 10*3/uL Normal 150-[address] [facility] Comment on above: Performed By: #### L 500.2500, L100.0100 ####[facility] [address] [place], [address] RBC (Bld) [#/Vol] 3.62 10*6/uL Low 4.2-5.4 [facility] Comment on above: Performed By: #### L 500.2500, L100.0100 ####[facility] [address] [place], [address] RDW SD 37.9 fl Normal 35.1-43.[address] [facility] Comment on above: Performed By: #### L 500.2500, L100.0100 ####[facility] [address] [place], [address] WBC (Bld) [#/Vol] 7.9 10*3/uL Normal 4.4-11.0 [facility] Comment on above: Performed By: #### L 500.2500, L100.0100 ####[facility] [address] [place], [address] CRPon 06-20-2025 C-REACTIVE PROT 62.50 mg/L High 0.0-3.[address] [facility] Comment on above: Performed By: #### L 501.6710, L101.9900 ####[facility] [address] [place], [address] Consultation - Orthopedicson 06-20-2025 Consultation - Orthopedics [facility] Medical Records Department [address] [place] [address] Consultation - Orthopedics 06/20/25 1801 MR#: [id number] Acct: [id number] Name: REINIER MENDOZA Rep #: [id number] : 1970 55 From: Yair Benedict MD PCP: REGGIE Arias Status:ADM IN Location: [facility] [place] US317-9 HPI Consult Data Date of Consult: 06/20/25 [...] She then went to the local hospital [place] where she was treated and discharged. She continued to have chills and she came to [place] [facility]. She underwent an MRI which showed [...] empiric IV antibiotics since admission last night. [facility] Medical History (Updated 06/20/25 @ 18:04 by [...] mg PO QHS BIPOLAR 05/26/2505/04 History omega 0-rlp-pog-fish oil 1,200 mg 2 cap PO DAILY [...] smoker Smo (more content not included)... Normal [facility] Erythrocyte Sed Rateon 06-20 SED RATE 33 mm/hr High 0-[address] [facility] Comment on above: Performed By: #### L 501.6710, L101.9900 ####[facility] [address] [place], [address] CBC W/Diff, Automatedon 06-10 Absolute Lymph 1.91 X10 3/uL Normal 0.83-4.[address] [facility] Comment on above: Performed By: #### L 100.0100, L500.4050 #### [facility] [address] [place], [address] Absolute Neut 5.7 X10 3/uL Normal 2.0-7.[address] [facility] Comment on above: Performed By: #### L 100.0100, L500.4050 #### [facility] [address] [place], [address] Basophils/100 WBC (Bld) 0.3 % Normal 0-[address] [facility] Comment on above: Performed By: #### L 100.0100, L500.4050 #### [facility] [address] [place], [address] Eosinophils/100 WBC (Bld) 1.9 % Normal 0-[address] [facility] Comment on above: Performed By: #### L 100.0100, L500.4050 #### [facility] [address] [place], [address] Erythrocyte distribution width (RBC) [Ratio] 12.0 % Normal 11.6-14.[address] [facility] Comment on above: Performed By: #### L 100.0100, L500.4050 #### [facility] [address] [place], [address] Hematocrit (Bld) [Volume fraction] 31.9 % Low 37-[address] [facility] Comment on above: Performed By: #### L 100.0100, L500.4050 #### [facility] [address] [place], [address] Hemoglobin (Bld) [Mass/Vol] 11.1 g/dL Low 12.0-15.[address] [facility] Comment on above: Performed By: #### L 100.0100, L500.4050 #### [facility] [address] [place], [address] IG% 0.700 Normal 0.0-0.[address] [facility] Comment on above: Result Comment: IG% - Immature Granulocytes (promyelocytes, myelocytes and metamyelocytes) > 1% indicates that a LEFT SHIFT is Present. Performed By: #### L 100.0100, L500.4050 #### [facility] [address] [place], [address] Lymphocytes/100 WBC (Bld) 22.1 % Normal 19-[address] [facility] Comment on above: Performed By: #### L 100.0100, L500.4050 #### [facility] [address] [place], [address] MCH (RBC) [Entitic mass] 29.7 pg Normal 27.0-32.[address] [facility] Comment on above: Performed By: #### L 100.0100, L500.4050 #### [facility] [address] [place], [address] MCHC (RBC) [Mass/Vol] 34.8 g/dL Normal 32-[address] [facility] Comment on above: Performed By: #### L 100.0100, L500.4050 #### [facility] [address] [place], [address] MCV (RBC) [Entitic vol] 85.3 fL Normal 81-[address] [facility] Comment on above: Performed By: #### L 100.0100, L500.4050 #### [facility] [address] [place], [address] Monocytes/100 WBC (Bld) 8.7 % Normal 0-[address] [facility] Comment on above: Performed By: #### L 100.0100, L500.4050 #### [facility] [address] [place], [address] Neutrophils/100 WBC (Bld) 66.3 % Normal 47-[address] [facility] Comment on above: Performed By: #### L 100.0100, L500.4050 #### [facility] [address] [place], [address] Nucleated RBC (Bld) [#/Vol] 0 10*3/uL Normal 0-[address] [facility] Comment on above: Performed By: #### L 100.0100, L500.4050 #### [facility] [address] [place], [address] Platelet mean volume (Bld) [Entitic vol] 8.9 fL Normal 6.2-12.[address] [facility] Comment on above: Performed By: #### L 100.0100, L500.4050 #### [facility] [address] [place], [address] Platelets (Bld) [#/Vol] 340 10*3/uL Normal 150-[address] [facility] Comment on above: Performed By: #### L 100.0100, L500.4050 #### [facility] [address] [place], [address] RBC (Bld) [#/Vol] 3.74 10*6/uL Low 4.2-5.4 [facility] Comment on above: Performed By: #### L 100.0100, L500.4050 #### [facility] [address] [place], [address] RDW SD 37.2 fl Normal 35.1-43.[address] [facility] Comment on above: Performed By: #### L 100.0100, L500.4050 #### [facility] [address] [place], [address] WBC (Bld) [#/Vol] 8.6 10*3/uL Normal 4.4-11.0 [facility] Comment on above: Performed By: #### L 100.0100, L500.4050 #### [facility] [address] [place], [address] Comprehensive Metabolic Prof tex 06-19-2025 Albumin [Mass/Vol] 3.7 g/dL Normal 3.5-5.0 [facility] Comment on above: Performed By: #### L 100.0100, L500.4050 #### [facility] [address] [place], [address] Albumin/Globulin [Mass ratio] 1.3 {ratio} Normal 0.9-2.[address] [facility] Comment on above: Performed By: #### L 100.0100, L500.4050 #### [facility] [address] [place], [address] ALK PHOS 64 U/L Normal 35-[address] [facility] Comment on above: Performed By: #### L 100.0100, L500.4050 #### [facility] [address] [place], [address] ALT [Catalytic activity/Vol] 18 U/L Normal <=[address] [facility] Comment on above: Performed By: #### L 100.0100, L500.4050 #### [facility] [address] [place], [address] AST [Catalytic activity/Vol] 19 U/L Normal <=[address] [facility] Comment on above: Performed By: #### L 100.0100, L500.4050 #### [facility] [address] [place], [address] Bilirubin [Mass/Vol] 0.24 mg/dL Normal 0.00-1.[address] [facility] Comment on above: Performed By: #### L 100.0100, L500.4050 #### [facility] [address] [place], [address] BUN/CRE 31.7 RATIO High 10-[address] [facility] Comment on above: Performed By: #### L 100.0100, L500.4050 #### [facility] [address] [place], [address] Calcium [Mass/Vol] 9.7 mg/dL Normal 7.6-11.0 [facility] Comment on above: Performed By: #### L 100.0100, L500.4050 #### [facility] [address] [place], [address] Chloride [Moles/Vol] 85 mmol/L Low 98-[address] [facility] Comment on above: Performed By: #### L 100.0100, L500.4050 #### [facility] [address] [place], [address] CO2 [Moles/Vol] 23.0 mmol/L Normal 21.0-32.[address] [facility] Comment on above: Performed By: #### L 100.0100, L500.4050 #### [facility] [address] [place], [address] Creatinine [Mass/Vol] 0.49 mg/dL Low 0.70-1.[address] [facility] Comment on above: Performed By: #### L 100.0100, L500.4050 #### [facility] [address] [place], [address] ECRCL 160.41 ml/min Normal 50-[address] [facility] Comment on above: Performed By: #### L 100.0100, L500.4050 #### [facility] [address] [place], [address] GAP 13 Normal 5-[address] [facility] Comment on above: Performed By: #### L 100.0100, L500.4050 #### [facility] [address] [place], [address] GFR/1.73 sq M.predicted among non-blacks MDRD (S/P/Bld) [Vol rate/Area] 111 mL/min/{1.73_m2} Normal >[address] [facility] Comment on above: Result Comment: mL/m in/1.73m2 CKD-EPI Creatinine Equation (2020) Performed By: #### L 100.0100, L500.4050 #### [facility] [address] [place], [address] Globulin (S) [Mass/Vol] 2.9 g/dL Normal 2.2-4.[address] [facility] Comment on above: Performed By: #### L 100.0100, L500.4050 #### [facility] [address] [place], [address] Glucose [Mass/Vol] 159 mg/dL High 70-99 [facility] Comment on above: Performed By: #### L 100.0100, L500.4050 #### [facility] [address] [place], [address] Potassium [Moles/Vol] 4.4 mmol/L Normal 3.3-5.[address] [facility] Comment on above: Performed By: #### L 100.0100, L500.4050 #### [facility] [address] [place], [address] Sodium [Moles/Vol] 122 mmol/L Low 133-145 [facility] Comment on above: Performed By: #### L 100.0100, L500.4050 #### [facility] [address] [place], [address] T PROT 6.7 g/dL Normal 5.9-8.[address] [facility] Comment on above: Performed By: #### L 100.0100, L500.4050 #### [facility] [address] [place], [address] Urea nitrogen [Mass/Vol] 16 mg/dL Normal 4-[address] [facility] Comment on above: Performed By: #### L 100.0100, L500.4050 #### [facility] [address] [place], [address] Emergency Department Summary on 06-19-2025 Emergency Department Summary [facility] Medical Records Department [address] [place] [address] Emergency Department Summary 06/19/25 MR#: [id number] Acct: [id number] Name: REINIER MENDOZA Rep #: [id number] : 1970 55 From: Luis Antonio Gonzales DO PCP: REGGIE Arias Status:ADM IN Location: [facility] [place] [id number] Cole Lee DO on [...] since then. States that she went to [facility] had a workup including a CT and [...] she is urinating and not soiling herself. [facility] Medical History Lumbar stenosis with neurogenic claudication [...] mg PO QHS BIPOLAR 05/26/2505/04 History omega 0-lqi-whv-fish oil 1,200 mg 2 cap PO DAILY [...] release valsartan (more content not included)... Normal [facility] Lactic Acidon 06-19-2025 Lactate [Moles/Vol] 1.2 mmol/L Normal 0.0-2.0 [facility] Comment on above: Order Comment: Y Performed By: #### L 503.6005, M200.1000 #### [facility] [address] [facility] [place], [address] Spine Lumbar W/WO Contraston 06-19-2025 Spine Lumbar W/WO Contrast [facility] Imaging Services [address] [place], [place] [address] Spine Lumbar W/WO Contrast MR#: [id number] Acct: [id number] Name: REINIER MENDOZA Rep #: [id number] : 1970 F 55 From: Fred Santoyo MD PCP: Suzanne Cruz, [employer]-C Status: REG ER Study: Spine Lumbar W/WO Contrast Date of Exam: 06/10 Exam# [id number] Ordering Dr: Luis Antonio Gonzales DO PROCEDURE: [...] provider Kevon Lee 06/19/2025 at 7 p.m. 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 Reading Location: [id number] CC: REGGIE Arroyo; Dr. Luis Antonio Gonzales DO Public Health Service Officer: Signed Normal [facility] Bacteriaon 06-16-2025 Bacteria identified Cx Nom (U) Test: Urine Culture Specimen Source: Clean Catch/Voided Specimen Type: Urine Specimen Date: 06/16/2025104 Result Date: 06/17/2025657 Result Status: Final result Abnormal: No Resulting Lab: [facility] [address] [place] [address] CULTURE Clinically insignificant growth based on current clinical standards. Normal [facility] Comment on above: Performed By: #### 6 30-4 #### ANTONIETA Wagner ([id number]) [facility] ([facility]) [address] [place] [address] CBC W Auto Differential pane l (Bld)on 06-16-2025 Basophils (Bld) [#/Vol] 0.03 10*3/uL [facility] Basophils/100 WBC (Bld) 0.3 % 0.0 - 2.0 % [facility] Eosinophils (Bld) [#/Vol] 0.11 10*3/uL [facility] Eosinophils/100 WBC (Bld) 1.1 % 0.0 - 6.0 % [facility] Erythrocyte distribution width (RBC) [Ratio] 11.9 % 11.5 - 14.5 % [facility] Hematocrit (Bld) [Volume fraction] 29.4 % Low 36.0 - 46.0 % [facility] Hemoglobin (Bld) [Mass/Vol] 10.5 g/dL Low 12.0 - 16.0 g/dL [facility] Immature granulocytes (Bld) [#/Vol] 0.05 10*3/uL [facility] Immature granulocytes/100 WBC (Bld) 0.5 % 0.0 - 0.9 % [facility] Comment on above: Immature Granulocyte Count (IG) includes promyelocytes, myelocytes and metamyelocytes but does not include bands. Percent differential counts (%) should be interpreted in the context of the absolute cell counts (cells/UL). Interpretation and review of laboratory results Abnormal [facility] Lymphocytes (Bld) [#/Vol] 1.94 10*3/uL [facility] Lymphocytes/100 WBC (Bld) 19.4 % 13.0 - 44.0 % [facility] MCH (RBC) [Entitic mass] 30.5 pg 26.0 - 34.0 pg [facility] MCHC (RBC) [Mass/Vol] 35.7 g/dL 32.0 - 36.0 g/dL [facility] MCV (RBC) [Entitic vol] 86 fL 80 - 100 fL [facility] Monocytes (Bld) [#/Vol] 0.84 10*3/uL [facility] Monocytes/100 WBC (Bld) 8.4 % 2.0 - 10.0 % [facility] Neutrophils (Bld) [#/Vol] 7.01 10*3/uL [facility] Comment on above: Percent differential counts (%) should be interpreted in the context of the absolute cell counts (cells/uL). Neutrophils/100 WBC (Bld) 70.3 % 40.0 - 80.0 % [facility] Nucleated RBC/100 WBC (Bld) [Ratio] 0.0 % [facility] Platelets (Bld) [#/Vol] 235 10*3/uL [facility] RBC (Bld) [#/Vol] 3.44 10*6/uL Low [facility] WBC (Bld) [#/Vol] 10.0 10*3/uL [facility] Basophils (Bld) [#/Vol] 0.03 x10*3/uL Normal 0.00-0.10 [facility] Comment on above: Performed By: #### 5 7021-8 #### VELIA HAUSER ([id number]) [facility] ([facility]) [address] [place] [address] Basophils/100 WBC (Bld) 0.3 % Normal 0.0-2.0 [facility] Comment on above: Performed By: #### 7021-8 #### VELIA HAUSER ([id number]) [facility] ([facility]) [address] [place] [address] Eosinophils (Bld) [#/Vol] 0.11 x10*3/uL Normal 0.00-0.70 [facility] Comment on above: Performed By: #### 70-8 #### VELIA HAUSER ([id number]) [facility] ([facility]) [address] [place] [address] Eosinophils/100 WBC (Bld) 1.1 % Normal 0.0-6.0 [facility] Comment on above: Performed By: #### 70-8 #### VELIA HAUSER ([id number]) [facility] ([facility]) [address] [place] [address] Erythrocyte distribution width (RBC) [Ratio] 11.9 % Normal 11.5-14.5 [facility] Comment on above: Performed By: #### 7021-8 #### VELIA HAUSER ([id number]) [facility] ([facility]) [address] [place] [address] Hematocrit (Bld) [Volume fraction] 29.4 % Low 36.0-46.0 [facility] Comment on above: Performed By: #### 7021-8 #### VELIA HAUSER ([id number]) [facility] ([facility]) [address] [place] [address] Hemoglobin (Bld) [Mass/Vol] 10.5 g/dL Low 12.0-16.0 [facility] Comment on above: Performed By: #### 7021-8 #### VELIA HAUSER ([id number]) [facility] ([facility]) [address] [place] [address] Immature granulocytes (Bld) [#/Vol] 0.05 x10*3/uL Normal 0.00-0.70 [facility] Comment on above: Performed By: #### 5 7021-8 #### VELIA HAUSER ([id number]) [facility] ([facility]) [address] [place] [address] Immature granulocytes/100 WBC (Bld) 0.5 % Normal 0.0-0.9 [facility] Comment on above: Result Comment: Opal ture Granulocyte Count (IG) includes promyelocytes, myelocytes and metamyelocytes but does not include bands. Percent differential counts (%) should be interpreted in the context of the absolute cell counts (cells/UL). Performed By: #### 5 7021-8 #### VELIA HAUSER ([id number]) [facility] ([facility]) [address] [place] [address] Lymphocytes (Bld) [#/Vol] 1.94 x10*3/uL Normal 1.20-4.80 [facility] Comment on above: Performed By: #### 5 7021-8 #### VELIA HAUSER ([id number]) [facility] ([facility]) [address] [place] [address] Lymphocytes/100 WBC (Bld) 19.4 % Normal 13.0-44.0 [facility] Comment on above: Performed By: #### 5 7021-8 #### VELIA HAUSER ([id number]) [facility] ([facility]) [address] [place] [address] MCH (RBC) [Entitic mass] 30.5 pg Normal 26.0-34.0 [facility] Comment on above: Performed By: #### 5 7021-8 #### VELIA HAUSER ([id number]) [facility] ([facility]) [address] [place] [address] MCHC (RBC) [Mass/Vol] 35.7 g/dL Normal 32.0-36.0 [facility] Comment on above: Performed By: #### 5 7021-8 #### VELIA HAUSER ([id number]) [facility] ([facility]) [address] [place] [address] MCV (RBC) [Entitic vol] 86 fL Normal 80-100 [facility] Comment on above: Performed By: #### 5 7021-8 #### VELIA HAUSER ([id number]) [facility] ([facility]) [address] [place] [address] Monocytes (Bld) [#/Vol] 0.84 x10*3/uL Normal 0.10-1.00 [facility] Comment on above: Performed By: #### 5 7021-8 #### VELIA HAUSER ([id number]) [facility] ([facility]) [address] [place] [address] Monocytes/100 WBC (Bld) 8.4 % Normal 2.0-10.0 [facility] Comment on above: Performed By: #### 5 7021-8 #### VELIA HAUSER ([id number]) [facility] ([facility]) [address] [place] [address] Neutrophils (Bld) [#/Vol] 7.01 x10*3/uL Normal 1.20-7.70 [facility] Comment on above: Result Comment: Perc ent differential counts (%) should be interpreted in the context of the absolute cell counts (cells/uL). Performed By: #### 5 7021-8 #### VELIA HAUSER ([id number]) [facility] ([facility]) [address] [place] [address] Neutrophils/100 WBC (Bld) 70.3 % Normal 40.0-80.0 [facility] Comment on above: Performed By: #### 5 7021-8 #### VELIA HAUSER ([id number]) [facility] ([facility]) [address] [place] [address]87[address] Nucleated RBC/100 WBC (Bld) [Ratio] 0.0 /100 WBCs Normal 0.0-0.0 [facility] Comment on above: Performed By: #### 5 7021-8 #### VELIA HAUSER ([id number]) [facility] ([facility]) [address] [place] [address] Platelets (Bld) [#/Vol] 235 x10*3/uL Normal 150-450 [facility] Comment on above: Performed By: #### 5 7021-8 #### VELIA HAUSER ([id number]) [facility] ([facility]) [address] [place] [address] RBC (Bld) [#/Vol] 3.44 x10*6/uL Low 4.00-5.20 [facility] Comment on above: Performed By: #### 5 7021-8 #### VELIA HAUSER ([id number]) [facility] ([facility]) [address] [place] [address] WBC (Bld) [#/Vol] 10.0 x10*3/uL Normal 4.4-11.3 [facility] Comment on above: Performed By: #### 5 7021-8 #### VELIA HAUSER ([id number]) [facility] ([facility]) [address] [place] [address] CT ABDOMEN PELVIS W IV CONTR Zack 06-16-2025 CT ABDOMEN PELVIS W IV CONTRAST Interpreted By: Randy Painter, STUDY: CT ABDOMEN PELVIS W IV CONTRAST; 06/16/2025 2:47 am INDICATION: Signs/Symptoms:pain. COMPARISON: CT ABDOMEN PELVIS W IV CONTRAST 06/17/2024 ACCESSION NUMBER(S): [id number] ORDERING CLINICIAN: BREN KOWALSKI TECHNIQUE: Axial CT [...] Randy Painter 06/16/2025 3:11 AM Dictation workstation: [id number] [facility] CT Abdomen and Pelvis W cont rast [...] Randy Painter 06/16/2025 3:11 AM Dictation workstation: [id number] Interpreted By: Randy Painter, STUDY: CT ABDOMEN PELVIS W IV CONTRAST; 06/16/2025 2:47 am INDICATION: Signs/Symptoms:pain. COMPARISON: CT ABDOMEN PELVIS W IV CONTRAST 06/17/2024 ACCESSION NUMBER(S): [id number] ORDERING CLINICIAN: BREN KOWALSKI TECHNIQUE: Axial CT [...] PELVIS W IV CONTRAST 06/17/2024 ACCESSION NUMBER(S): [id number] ORDERING CLINICIAN: BREN KOWALSKI TECHNIQUE: Axial CT [...] Randy Painter 06/16/2025 3:11 AM Dictation workstation: [id number] [facility] Work Phone: Radiology Study observation (narrative) [facility] Work Phone: CT Abdomen and Pelvis W cont rast IVOrdered By: Randy Painter on 06-16-2025 [facility] Work Phone: Comprehensive metabolic 2000 panelon 06-16-2025 Albumin BCP dye [Mass/Vol] 3.7 g/dL 3.4 - 5.0 g/dL [facility] ALP [Catalytic activity/Vol] 54 U/L 33 - 110 U/L [facility] ALT With P-5'-P [Catalytic activity/Vol] 17 U/L 7 - 45 U/L [facility] Comment on above: Patients treated wit h Sulfasalazine may generate falsely decreased results for ALT. Anion gap [Moles/Vol] 13 mmol/L [facility] AST With P-5'-P [Catalytic activity/Vol] 16 U/L 9 - 39 U/L [facility] Bilirubin [Mass/Vol] 0.3 mg/dL 0.0 - 1 .2 mg/dL [facility] Calcium [Mass/Vol] 8.9 mg/dL 8.6 - 10. 3 mg/dL [facility] Chloride [Moles/Vol] 91 mmol/L Low 98 - 10 7 mmol/L [facility] CO2 [Moles/Vol] 26 mmol/L 21 - 32 mmol/L [facility] Comment on above: Bicarbonate results may be falsely elevated when Lactate Dehydrogenase (LDH) concentrations exceed 2,000 U/L due to a temporary reagent manufacturing issue. If significantly elevated LDH levels are suspected, interpret bicarbonate results with caution, correlate with the patient s clinical status, and consider confirming CO2 values using a blood gas analyzer. Creatinine [Mass/Vol] 0.43 mg/dL Low 0.50 - 1.05 mg/dL [facility] eGFR - PINF [facility] Comment on above: Calculations of nick mated GFR are performed using the 2020 CKD-EPI Study Refit equation without the race variable for the IDMS-Traceable creatinine methods. https://jasn.asnjournals.org/content/early/ASN.4444205 988 Glucose [Mass/Vol] 209 mg/dL High 74 - 99 mg/dL [facility] Interpretation and review of laboratory results Abnormal [facility] Potassium [Moles/Vol] 3.7 mmol/L 3.5 - 5.3 mmol/L [facility] Protein [Mass/Vol] 6.4 g/dL 6.4 - 8.2 g/dL [facility] Sodium [Moles/Vol] 126 mmol/L Low 136 - 145 mmol/L [facility] Urea nitrogen [Mass/Vol] 9 mg/dL 6 - 23 mg/dL [facility] Albumin BCP dye [Mass/Vol] 3.7 g/dL Normal 3.4-5.0 [facility] Comment on above: Performed By: #### 2 4323-8 #### VELIA HAUSER ([id number]) [facility] ([facility]) [facility] [place] [address] ALP [Catalytic activity/Vol] 54 U/L Normal 33-110 [facility] Comment on above: Performed By: #### 2 4323-8 #### VELIA HAUSER ([id number]) [facility] ([facility]) [address] [place] [address] ALT With P-5'-P [Catalytic activity/Vol] 17 U/L Normal 7-45 [facility] Comment on above: Result Comment: Sharmila ents treated with Sulfasalazine may generate falsely decreased results for ALT. Performed By: #### 2 4323-8 #### VELIA HAUSER ([id number]) [facility] ([facility]) [address] [place] [address] Anion gap [Moles/Vol] 13 mmol/L Normal [facility] Comment on above: Performed By: #### 2 4323-8 #### VELIA HAUSER ([id number]) [facility] ([facility]) [facility] [place] [address] AST With P-5'-P [Catalytic activity/Vol] 16 U/L Normal 9-39 [facility] Comment on above: Performed By: #### 2 4323-8 #### VELIA HAUSER ([id number]) [facility] ([facility]) [facility] [place] [address] Bilirubin [Mass/Vol] 0.3 mg/dL Normal 0.0-1.2 [facility] Comment on above: Performed By: #### 2 4323-8 #### VELIA HAUSER ([id number]) [facility] ([facility]) [address] [place] [address] Calcium [Mass/Vol] 8.9 mg/dL Normal 8.6-10.3 [facility] Comment on above: Performed By: #### 2 4323-8 #### VELIA HAUSER ([id number]) [facility] ([facility]) [address] [place] [address] Chloride [Moles/Vol] 91 mmol/L Low 98-107 [facility] Comment on above: Performed By: #### 2 432-8 #### VELIA HAUSER ([id number]) [facility] ([facility]) [address] [place] [address] CO2 [Moles/Vol] 26 mmol/L Normal 21-32 [facility] Comment on above: Result Comment: Bica rbonate results may be falsely elevated when Lactate Dehydrogenase (LDH) concentrations exceed 2,000 U/L due to a temporary reagent manufacturing issue. If significantly elevated LDH levels are suspected, interpret bicarbonate results with caution, correlate with the patient's clinical status, and consider confirming CO2 values using a blood gas analyzer. Performed By: #### 2 4323-8 #### VELIA HAUSER ([id number]) [facility] ([facility]) [address] [place] [address] Creatinine [Mass/Vol] 0.43 mg/dL Low 0.50-1.05 [facility] Comment on above: Performed By: #### 2 4323-8 #### VELIA HAUSER ([id number]) [facility] ([facility]) [address] [place] [address] Glomerular filtration rate >90 Normal >60 [facility] Comment on above: Result Comment: Calc ulations of estimated GFR are performed using the 2020 CKD-EPI Study Refit equation without the race variable for the IDMS-Traceable creatinine methods. https://jasn.asnjournals.org/content/early/ASN.7317054 988 Performed By: #### 2 4323-8 #### VELIA HAUSER ([id number]) [facility] ([facility]) [address] [place] [address] Glucose [Mass/Vol] 209 mg/dL High 74-99 [facility] Comment on above: Performed By: #### 2 4323-8 #### VELIA HAUSER ([id number]) [facility] ([facility]) [address] [place] [address] Potassium [Moles/Vol] 3.7 mmol/L Normal 3.5-5.3 [facility] Comment on above: Performed By: #### 2 4323-8 #### VELIA HAUSER ([id number]) [facility] ([facility]) [address] [place] [address] Protein [Mass/Vol] 6.4 g/dL Normal 6.4-8.2 [facility] Comment on above: Performed By: #### 2 4323-8 #### VELIA HAUSER ([id number]) [facility] ([facility]) [address] [place] [address] Sodium [Moles/Vol] 126 mmol/L Low 136-145 [facility] Comment on above: Performed By: #### 2 4323-8 #### VELIA HAUSER ([id number]) [facility] ([facility]) [address] [place] [address] 268[address] Urea nitrogen [Mass/Vol] 9 mg/dL Normal 6-23 [facility] Comment on above: Performed By: #### 2 4323-8 #### VELIA HAUSER ([id number]) [facility] ([facility]) [address] [place] [address] Lactateon 06-16-2025 Lactate [Moles/Vol] 1.9 mmol/L 0.4 - 2. 0 mmol/L [facility] Lactate [Moles/Vol] 1.9 mmol/L Normal 0.4-2.[address] [facility] Comment on above: Order Comment: Venip uncture immediately after or during the administration of Metamizole may lead to falsely low results. Testing should be performed immediately prior to Metamizole dosing. Performed By: #### 2 524-7 #### GUNN MURTAZA ([id number]) [facility] ([facility]) [address] [place] [address] Lactate [Moles/Vol]on 2024 Interpretation and review of laboratory results Normal [facility] Venipuncture immedia tely after or during the administration of Metamizole may lead to falsely low results. Testing should be performed immediately prior to Metamizole dosing. [facility] No Panel Informationon 06-16 Interpretation and review of laboratory results Abnormal [facility] Urinalysis complete W Reflex Culture panel (U)on 06-16-2025 Appearance (U) Clear Clear [facility] Bilirubin (U) [Mass/Vol] Negative NEGATIVE mg/dL [facility] Color (U) Light-Yellow Light-Yellow , Yellow, Dark-Yellow [facility] Glucose Auto test strip (U) [Mass/Vol] 200 (2+) Abnormal Normal mg/dL [facility] Ketones (U) [Mass/Vol] Negative NEGATIVE mg/dL [facility] Leukocyte esterase Auto test strip Ql (U) 75 Paulina/uL Abnormal NEGATIVE [facility] Nitrite Auto test strip Ql (U) Negative NEGATIVE [facility] pH (U) 7.0 [pH] 5.0, 5.5, 6.0, 6.5, 7.0, 7.5, 8.0 [facility] Protein (U) [Mass/Vol] 10 (TRACE) NEGATIVE, 10 (TRACE), 20 (TRACE) mg/dL [facility] RBC (U) [#/Vol] Negative NEGATIVE mg/dL [facility] Specific gravity (U) [Rel density] 1.011 1.005 - 1.035 [facility] Urobilinogen (U) [Mass/Vol] Normal Normal mg/dL [facility] Appearance (U) Clear Normal Clear [facility] Comment on above: Performed By: #### 5 8077-9 #### VELIA HAUSER ([id number]) [facility] ([facility]) [address] [place] [address] Bilirubin (U) [Mass/Vol] Negative Normal NEGATIVE [facility] Comment on above: Performed By: #### 5 8077-9 #### VELIA HAUSER ([id number]) [facility] ([facility]) [address] [place] [address] Color (U) Light-Yellow Normal Light-Yellow , Yellow, Dark-Yellow [facility] Comment on above: Performed By: #### 5 8077-9 #### VELIA HAUSER ([id number]) [facility] ([facility]) [address] [place] [address] Glucose Auto test strip (U) [Mass/Vol] 200 (2+) Abnormal Normal [facility] Comment on above: Performed By: #### 5 8077-9 #### VELIA HAUSER ([id number]) [facility] ([facility]) [address] [place] [address] Ketones (U) [Mass/Vol] Negative Normal NEGATIVE [facility] Comment on above: Performed By: #### 5 8077-9 #### VELIA HAUSER ([id number]) [facility] ([facility]) [address] [place] [address] Leukocyte esterase Auto test strip Ql (U) 75 Paulina/uL Abnormal NEGATIVE [facility] Comment on above: Performed By: #### 5 8077-9 #### VELIA HAUSER ([id number]) [facility] ([facility]) [address] [place] [address] Nitrite Auto test strip Ql (U) Negative Normal NEGATIVE [facility] Comment on above: Performed By: #### 5 8077-9 #### VELIA HAUSER ([id number]) [facility] ([facility]) [address] [place] [address] pH (U) 7.0 [pH] Normal 5.0, 5.5, 6.0, 6.5, 7.0, 7.5, 8.0 [facility] Comment on above: Performed By: #### 5 8077-9 #### VELIA HAUSER ([id number]) [facility] ([facility]) [address] [place] [address] Protein (U) [Mass/Vol] 10 (TRACE) Normal NEGATIVE, 10 (TRACE), 20 (TRACE) [facility] Comment on above: Performed By: #### 5 8077-9 #### VELIA HAUSER ([id number]) [facility] ([facility]) [address] [place] [address] RBC (U) [#/Vol] Negative Normal NEGATIVE [facility] Comment on above: Performed By: #### 5 8077-9 #### VELIA HAUSER ([id number]) [facility] ([facility]) [address] [place] [address] Specific gravity (U) [Rel density] 1.011 Normal 1.005-1.035 [facility] Comment on above: Performed By: #### 5 8077-9 #### VELIA HAUSER ([id number]) [facility] ([facility]) [address] [place] [address] Urobilinogen (U) [Mass/Vol] Normal Normal Normal [facility] Comment on above: Performed By: #### 5 8077-9 #### VELIA HAUSER ([id number]) [facility] ([facility]) [address] [place], [place] [address] Urinalysis microscopic panel Auto Ql (U)on 06-16-2025 Bacteria Auto (Urine sed) [#/Area] 1+ Abnormal NONE SEEN /HPF [facility] Crystals.amorphous Computer assisted (U) [#/Area] 1+ NONE, 1+, 2+ /HPF [facility] Epithelial cells.squamous Auto (Urine sed) [#/Area] 1-9 (SPARSE) Reference range not established. /HPF [facility] RBC Auto (Urine sed) [#/Area] 1-2 NONE, 1-2, 3-5 /HPF [facility] WBC Auto (Urine sed) [#/Area] 6-10 Abnormal 1-5, NONE /HPF [facility] Yeast.budding Computer assisted (U) [#/Area] PRESENT Abnormal NONE /HPF [facility] Bacteria Auto (Urine sed) [#/Area] 1+ /HPF Abnormal NONE SEEN [facility] Comment on above: Performed By: #### 5 3315-8 #### VELIA HAUSER ([id number]) [facility] ([facility]) [address] [place] [address] Crystals.amorphous Computer assisted (U) [#/Area] 1+ /HPF Normal NONE, 1+, 2+ [facility] Comment on above: Performed By: #### 5 5-8 #### VELIA HAUSER ([id number]) [facility] ([facility]) [address] [place] [address] Epithelial cells.squamous Auto (Urine sed) [#/Area] 1-9 (SPARSE) Normal Reference range not established. [facility] Comment on above: Performed By: #### 5 5-8 #### VELIA HAUSER ([id number]) [facility] ([facility]) [address] [place] [address] RBC Auto (Urine sed) [#/Area] 1-2 Normal NONE, 1-2, 3-5 [facility] Comment on above: Performed By: #### 5 9365-8 #### VELIA HAUSER ([id number]) [facility] ([facility]) [address] [place] [address] WBC Auto (Urine sed) [#/Area] 6-10 Abnormal 1-5, NONE [facility] Comment on above: Performed By: #### 5 5-8 #### VELIA HAUSER ([id number]) [facility] ([facility]) [address] [place] [address] Yeast.budding Computer assisted (U) [#/Area] PRESENT Abnormal NONE [facility] Comment on above: Performed By: #### 5 6605-8 #### VELIA HAUSER ([id number]) [facility] ([facility]) [address] [place] [address] Basic Metabolic Profile (BMP )on 06-13-2025 BUN/CRE 18.9 RATIO Normal 10-[address] [facility] Comment on above: Performed By: #### L 500.2500, L100.0100 ####[facility] [address] [place], [address] Calcium [Mass/Vol] 8.4 mg/dL Normal 7.6-11.0 [facility] Comment on above: Performed By: #### L 500.2500, L100.0100 ####[facility] [address] [place], [address] Chloride [Moles/Vol] 88 mmol/L Low 98-[address] [facility] Comment on above: Performed By: #### L 500.2500, L100.0100 ####[facility] [address] [place], [address] CO2 [Moles/Vol] 23.2 mmol/L Normal 21.0-32.[address] [facility] Comment on above: Performed By: #### L 500.2500, L100.0100 ####[facility] [address] [place], [address] Creatinine [Mass/Vol] 0.57 mg/dL Low 0.70-1.[address] [facility] Comment on above: Performed By: #### L 500.2500, L100.0100 ####[facility] [address] [place], [address] ECRCL 134.48 ml/min Normal 50-[address] [facility] Comment on above: Performed By: #### L 500.2500, L100.0100 ####[facility] [address] [place], [address] GAP 12 Normal 5-[address] [facility] Comment on above: Performed By: #### L 500.2500, L100.0100 ####[facility] [address] [place], [address] GFR/1.73 sq M.predicted among non-blacks MDRD (S/P/Bld) [Vol rate/Area] 106 mL/min/{1.73_m2} Normal >[address] [facility] Comment on above: Result Comment: mL/m in/1.73m2 CKD-EPI Creatinine Equation (2020) Performed By: #### L 500.2500, L100.0100 ####[facility] [address] [place], [address] Glucose [Mass/Vol] 181 mg/dL High 70-99 [facility] Comment on above: Performed By: #### L 500.2500, L100.0100 ####[facility] [address] [place], [address] Potassium [Moles/Vol] 3.6 mmol/L Normal 3.3-5.[address] [facility] Comment on above: Performed By: #### L 500.2500, L100.0100 ####[facility] [address] [place], [address] Sodium [Moles/Vol] 123 mmol/L Low 133-145 [facility] Comment on above: Performed By: #### L 500.2500, L100.0100 ####[facility] [address] [place], [address] Urea nitrogen [Mass/Vol] 11 mg/dL Normal 4-[address] [facility] Comment on above: Performed By: #### L 500.2500, L100.0100 ####[facility] [address] [place], [address] Bedside Glucoseon 06-13-2025 FINGERSTICK GLU 234 mg/dL High 74-[address] [facility] Comment on above: Result Comment: PARTH WERNER OF PATIENT CARE PER NURSING PROTOCOL Performed By: #### L 503.6005, M200.1000 #### [facility] [address] [place], [address] CBC W/Diff, Automatedon 11-0 4-2024 Absolute Lymph 2.40 X10 3/uL Normal 0.83-4.[address] [facility] Comment on above: Performed By: #### L 500.2500, L100.0100 ####[facility] [address] [place], [address] Absolute Neut 6.8 X10 3/uL Normal 2.0-7.[address] [facility] Comment on above: Performed By: #### L 500.2500, L100.0100 ####[facility] [address] [place], [address] Basophils/100 WBC (Bld) 0.2 % Normal 0-[address] [facility] Comment on above: Performed By: #### L 500.2500, L100.0100 ####[facility] [address] [place], [address] Eosinophils/100 WBC (Bld) 0.5 % Normal 0-[address] [facility] Comment on above: Performed By: #### L 500.2500, L100.0100 ####[facility] [address] [place], [address] Erythrocyte distribution width (RBC) [Ratio] 12.0 % Normal 11.6-14.[address] [facility] Comment on above: Performed By: #### L 500.2500, L100.0100 ####[facility] [address] [place], [address] Hematocrit (Bld) [Volume fraction] 32.8 % Low 37-[address] [facility] Comment on above: Performed By: #### L 500.2500, L100.0100 ####[facility] [address] [place], [address] Hemoglobin (Bld) [Mass/Vol] 11.9 g/dL Low 12.0-15.[address] [facility] Comment on above: Performed By: #### L 500.2500, L100.0100 ####[facility] [address] [place], [address] IG% 0.600 Normal 0.0-0.[address] [facility] Comment on above: Result Comment: IG% - Immature Granulocytes (promyelocytes, myelocytes and metamyelocytes) > 1% indicates that a LEFT SHIFT is Present. Performed By: #### L 500.2500, L100.0100 ####[facility] [address] [place], [address] Lymphocytes/100 WBC (Bld) 23.5 % Normal 19-[address] [facility] Comment on above: Performed By: #### L 500.2500, L100.0100 ####[facility] [address] [place], [address] MCH (RBC) [Entitic mass] 30.6 pg Normal 27.0-32.[address] [facility] Comment on above: Performed By: #### L 500.2500, L100.0100 ####[facility] [address] [place], [address] MCHC (RBC) [Mass/Vol] 36.3 g/dL High 32-[address] [facility] Comment on above: Performed By: #### L 500.2500, L100.0100 ####[facility] [address] [place], [address] MCV (RBC) [Entitic vol] 84.3 fL Normal 81-[address] [facility] Comment on above: Performed By: #### L 500.2500, L100.0100 ####[facility] [address] [place], [address] Monocytes/100 WBC (Bld) 9.3 % Normal 0-[address] [facility] Comment on above: Performed By: #### L 500.2500, L100.0100 ####[facility] [address] [place], [address] Neutrophils/100 WBC (Bld) 65.9 % Normal 47-[address] [facility] Comment on above: Performed By: #### L 500.2500, L100.0100 ####[facility] [address] [place], [address] Nucleated RBC (Bld) [#/Vol] 0 10*3/uL Normal 0-[address] [facility] Comment on above: Performed By: #### L 500.2500, L100.0100 ####[facility] [address] [place], [address] Platelet mean volume (Bld) [Entitic vol] 8.5 fL Normal 6.2-12.[address] [facility] Comment on above: Performed By: #### L 500.2500, L100.0100 ####[facility] [address] [place], [address] Platelets (Bld) [#/Vol] 255 10*3/uL Normal 150-[address] [facility] Comment on above: Performed By: #### L 500.2500, L100.0100 ####[facility] [address] [place], [address] RBC (Bld) [#/Vol] 3.89 10*6/uL Low 4.2-5.4 [facility] Comment on above: Performed By: #### L 500.2500, L100.0100 ####[facility] [address] [place], [address] RDW SD 36.9 fl Normal 35.1-43.[address] [facility] Comment on above: Performed By: #### L 500.2500, L100.0100 ####[facility] [address] [place], [place], [address] WBC (Bld) [#/Vol] 10.2 10*3/uL Normal 4.4-11.0 [facility] Comment on above: Performed By: #### L 500.2500, L100.0100 ####[facility] [address] [place], [address] Discharge Instructionon 11-0 Discharge Instruction [facility] Medical Records Department [address] [place] [address] Instructions for Home/Discharge Instructions 06/13/25 1151 MR#: [id number] Acct: [id number] Name: REINIER MENDOZA Rep #: [id number] : 1970 55 From: Maria Luisa BRENNAN [...] mcg capsule 1 cap PO DAILY omega 3-kyh-fkd-fish oil [Fish Oil] 1,200 (144-216) mg capsule [...] Arroyo; Dr. Kentrell Galindo MD Signed Normal [facility] Lumbar Spine 2 or 3 Viewson 06-13-2025 Lumbar Spine 2 or 3 Views [facility] Imaging Services [address] [place] [address] Lumbar Spine 2 or 3 Views MR#: [id number] Acct: [id number] Name: REINIER MENDOZA Rep #: [id number] : 1970 F 55 From: Bren Alfonso MD PCP: REGGIE Arias Status: ADM ANSON Study: Lumbar Spine 2 or 3 Views Date of Exam: Exam# [id number] Ordering Dr: Maria Luisa Taylor EXAM: XR [...] changes as above. Reading Location[facility] CC: REGGIE Arroyo; MIKA Allen Public Health Service Officer: Signed Normal [facility] Bedside Glucoseon 06-12-2025 FINGERSTICK GLU 196 mg/dL High [address] [place] [address] Comment on above: Result Comment: PARTH GEMENT OF PATIENT CARE PER NURSING PROTOCOL Performed By: #### L 501.080 #### [facility] [address] [place], [address] FINGERSTICK GLU 231 mg/dL High [address] [place] [address] Comment on above: Result Comment: PARTH GEMENT OF PATIENT CARE PER NURSING PROTOCOL Performed By: #### L 503.6005, M200.1000 #### [facility] [address] [place], [address] FINGERSTICK GLU 151 mg/dL High [address] [place] [address] Comment on above: Result Comment: PARTH GEMENT OF PATIENT CARE PER NURSING PROTOCOL Performed By: #### L 503.6005, M200.1000 #### [facility] [address] [place], [address] Consultation - Hospitaliston 06-12-2025 Consultation - Hospitalist [facility] Medical Records Department [address] [place] [address] Consultation - Hospitalist 06/12/25 1921 MR#: [id number] Acct: [id number] Name: REINIER MENDOZA Rep #: [id number] : 1970 55 From: Olayinka Becker DO PCP: Suzanne Arroyo NP-C Status:ADM ANSON [facility] Plan Assessment/Plan (1) Lumbar stenosis with neurogenic claudication: PLAN: Plan Patient is a 55-year-old female who presented to [facility] on 06/12/2025 for planned lumbar fusion [...] is a 55 F who presented to [facility] on 06/12/2025 for planned orthopedic procedure. [...] She denied any other acute concerns currently. [facility] Medical History Lumbar stenosis with neurogenic [...] History aripiprazol (more content not included)... Normal [facility] Lumbar Spine 2 or 3 Viewson 06-12-2025 Lumbar Spine 2 or 3 Views [facility] Imaging Services [address] [place] [address] Lumbar Spine 2 or 3 Views MR#: [id number] Acct: [id number] Name: REINIER MENDOZA Rep #: [id number] : 1970 F 55 From: Bren Alfonso MD PCP: REGGIE Arias Status: ADM ANSON Study: Lumbar Spine 2 or 3 Views Date of Exam: Exam# [id number] Ordering Dr: Yair Benedict MD EXAM: XR [...] operative note for further details. Reading [facility] CC: [employer]-C Suzanne Arroyo; Dr. Yair Benedict MD Public Health Service Officer: Signed Normal [facility] MR/POSTOP.ANEon 06-12-2025 MR/POSTOP.[facility] Medical Records Department [address] [place] [address] Anesthesia Postop Eval I 06/12/25 1215 MR#: [id number] Acct: [id number] Name: REINIER MENDOZA Rep #: [id number] : 1970 55 From: Olayinka Quinones CRNA PCP: REGGIE Arias Status:REG SDC Y Race: C Location: [place] [address]- Anesthesia: Postop Eval I Current Vital Signs Temperature: 97.3 F Pulse Rate: 78 Blood Pressure: 137/81 Respiratory Rate: 16 Pulse Ox: 96 Assessment Airway patent: Yes Spontaneous unlabored respirations: Yes nausea: No Vomiting: No Anesthesia Complication: No Fluid Hydration Crystalloid volume administer (ml): 1,700 Total IV fluid infused: 1,700 Progress Note Anesthesia document: Postop Eval 1 completed: Yes 06/12/25 1216 Date Olayinka Quinones STEEL CHECKER Cosigner Signature: Date CC: Signed Normal [facility] MR/VIDFCOCP5sg 06-12-2025 [facility] Medical Records Department [address] [place] [address] Anesthesia Postop Eval II 06/12/25 1842 MR#: [id number] Acct: [id number] Name: REINIER MENDOZA Manjit Rep #: [id number] : 1970 55 From: Santos Milian CRNA PCP: REGGIE Arias Status:ADM ANSON Y Race: C Location: [place] [id number] Anesthesia Postop Eval I Sum Postop Eval Completion status Anesthesia document: Postop Eval 1 completed: Yes Anesthesia Postop Eval I Summary Anesthesia Postop Eval I Summary: Anesthesia Postop Eval I: Assessment Summary Airway patent Yes 06/12/25 12:15 STEEL CHECKER.ABAR Spontaneous unlabored Yes 06/12/25 12:15 STEEL CHECKER.ABAR respirations Mental status Awake 06/12/25 12:56 nausea No 06/12/25 12:56 Vomiting No 06/12/25 12:56 Anesthesia Postop Eval I: Fluid Summary Crystalloid volume administer 1,700 06/12/25 12:15 STEEL CHECKER.ABAR (ml) Colloids volume administered ( ml) Blood Product volume administered (ml) Total IV fluid infused 1,700 06/12/25 12:15 STEEL CHECKER.ABAR Anesthesia Postop Eval I: Summary Notes Anesthesia Complication No 06/12/25 12:15 STEEL CHECKER.ABAR Anesthesia Complication Comment: Post-operative progress note Anesthesia: [...] Complication: No 06/12/25 1844 Date Santos Milian STEEL CHECKER Cosigner Signature: Date CC: Signed Normal [facility] MR/POSTOPAN2 [facility] Medical Records Department [address] [place] [address] Anesthesia Postop Eval II 06/12/25 1256 MR#: [id number] Acct: [id number] Name: REINIER MENDOZA Rep #: [id number] : 1970 55 From: Alexander Levy MD PCP: REGGIE Arias Status:REG [facility] Y Race: C Location: [facility]10 Anesthesia Postop Eval I Sum Postop Eval Completion status Anesthesia document: Postop Eval 1 completed: Yes Anesthesia Postop Eval I Summary Anesthesia Postop Eval I Summary: Anesthesia Postop Eval I: Assessment Summary Airway patent Yes 06/12/25 12:15 STEEL CHECKER.ABAR Spontaneous unlabored Yes 06/12/25 12:15 STEEL CHECKER.ABAR respirations Mental status nausea No 06/12/25 12:15 STEEL CHECKER.ABAR Vomiting No 06/12/25 12:15 STEEL CHECKER.ABAR Anesthesia Postop Eval I: Fluid Summary Crystalloid volume administer 1,700 06/12/25 12:15 STEEL CHECKER.ABAR (ml) Colloids volume administered ( ml) Blood Product volume administered (ml) Total IV fluid infused 1,700 06/12/25 12:15 STEEL CHECKER.ABAR Anesthesia Postop Eval I: Summary Notes Anesthesia Complication No 06/12/25 12:15 STEEL CHECKER.ABAR Anesthesia Complication Comment: Post-operative progress note Anesthesia: Postop Eval II Evaluation Mental status: Awake Pain Level: 2 nausea: No Vomiting: No 06/12/25 1256 Date Alexander Alfaro Signature: Date CC: Signed Normal 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 L2-3 anterolateral spinal fusion 82006 ??? L3-4 anterolateral fusion 38373/51 ??? L2-3 insertion of cage 69748 ??? L3-4 insertion of cage 65402/51 . L2-3 anterior instrumentation 55871 . L3-4 anterior instrumentation 63246/51 ??? Bone graft aspirate left iliac crest [...] muscle fi (more content not included)... Normal [facility] CBC (INCLUDES DIFF/PLT)on Basophils (Bld) [#/Vol] 0.03 10*3/uL Normal 0-200 [facility] Comment on above: Performed By: #### 9 1531, 9144 #### [facility] [address], [address] [place] [address] Aging Room Hand: Fahad Moore MD Basophils/100 WBC (Bld) 0.4 % Normal [facility] Comment on above: Performed By: #### 9 9932, 0591 #### [facility] [address], [address] [place] [address] Aging Room Hand: Fahad Moore MD Eosinophils (Bld) [#/Vol] 0.133 10*3/uL Normal 15-500 [facility] Comment on above: Performed By: #### 9 2665, 6399 #### [facility] of [address], [address] [place] [address] Aging Room Hand: Fahad Moore MD Eosinophils/100 WBC (Bld) 1.8 % Normal [facility] Comment on above: Performed By: #### 9 7435, 6399 #### [facility] of [address], [address] [place] [address] Aging Room Hand: Fahad Moore MD Erythrocyte distribution width (RBC) [Ratio] 13.0 % Normal 11.0-15.0 [facility] Comment on above: Performed By: #### 9 519, 6399 #### [facility] of [address], [address] [place] [address] Aging Room Hand: Fahad Moore MD Hematocrit (Bld) [Volume fraction] 40.3 % Normal 35.0-45.0 [facility] Comment on above: Performed By: #### 9 699, 6399 #### [facility] of [address], [address] [place] [address] Aging Room Hand: Fahad Moore MD Hemoglobin (Bld) [Mass/Vol] 13.6 g/dL Normal 11.7-15.5 [facility] Comment on above: Performed By: #### 9 877, 6399 #### [facility] of [address], [address] [place] [address] Aging Room Hand: Fahad Moore MD Lymphocytes (Bld) [#/Vol] 2.19 10*3/uL Normal 850-3900 [facility] Comment on above: Performed By: #### 9 563, 6399 #### [facility] of [address], [address] [place] [address] Aging Room Hand: Fahad Moore MD Lymphocytes/100 WBC (Bld) 29.6 % Normal [facility] Comment on above: Performed By: #### 9 163, 6399 #### [facility] of [address], [address] [place] [address] Aging Room Hand: Fahad Moore MD MCH (RBC) [Entitic mass] 30.5 pg Normal 27.0-33.0 [facility] Comment on above: Performed By: #### 9 735, 6399 #### [facility] of [place] [address] Aging Room Hand: Fahda Moore MD MCHC (RBC) [Mass/Vol] 33.7 g/dL Normal 32.0-36.0 [facility] Comment on above: Result Comment: For adults, a slight decrease in the calculated MCHC value (in the range of 30 to 32 g/dL) is most likely not clinically significant; however, it should be interpreted with caution in correlation with other red cell parameters and the patient's clinical condition. Performed By: #### 9 879, 6399 #### [facility] of [place] [address] Aging Room Hand: Fahad Moore MD MCV (RBC) [Entitic vol] 90.4 fL Normal 80.0-100.0 [facility] Comment on above: Performed By: #### 9 621, 6399 #### [facility] of [place] [address] Aging Room Hand: Fahad Moore MD Monocytes (Bld) [#/Vol] 0.57 10*3/uL Normal 200-950 [facility] Comment on above: Performed By: #### 9 968, 6399 #### [facility] of [place] [address] Aging Room Hand: Fahad Moore MD Monocytes/100 WBC (Bld) 7.7 % Normal [facility] Comment on above: Performed By: #### 9 526, 6399 #### [facility] of [place] [address] Aging Room Hand: Fahad Moore MD Neutrophils (Bld) [#/Vol] 4.477 10*3/uL Normal 7156-3907 [facility] Comment on above: Performed By: #### 9 405, 6399 #### [facility] of [place] [id number] Aging Room Hand: Fahad Moore MD Neutrophils/100 WBC (Bld) 60.5 % Normal [facility] Comment on above: Performed By: #### 9 266, 6399 #### [facility] of [address], [address] [place] [address] Aging Room Hand: Fahad Moore MD Platelet mean volume (Bld) [Entitic vol] 9.4 fL Normal 7.5-12.5 [facility] Comment on above: Performed By: #### 9 266, 6399 #### [facility] of [address], [address] [place] [address] Aging Room Hand: Fahad Moore MD Platelets (Bld) [#/Vol] 311 10*3/uL Normal 140-400 [facility] Comment on above: Performed By: #### 9 266, 6399 #### [facility] of [address], [address] [place] [address] Aging Room Hand: Fahad Moore MD RBC (Bld) [#/Vol] 4.46 10*6/uL Normal 3.80-5.10 [facility] Comment on above: Performed By: #### 9 2665, 6399 #### [facility] of [address], [address] [place] [address] Aging Room Hand: Fahad Moore MD WBC (Bld) [#/Vol] 7.4 10*3/uL Normal 3.8-10.8 [facility] Comment on above: Performed By: #### 9 266, 6399 #### [facility] of [address], [address] [place] [address] Aging Room Hand: Fahad Moore MD COMPREHENSIVE METABOLIC PANE L W/ANION GAPon 06-08-2025 Albumin [Mass/Vol] 4.4 g/dL Normal 3.6-5.1 [facility] Comment on above: Performed By: #### 9 266, 6399 #### [facility] of [address], [address] [place] [address] Aging Room Hand: Fahad Moore MD ALP [Catalytic activity/Vol] 54 U/L Normal 37-153 [facility] Comment on above: Performed By: #### 9 837, 6399 #### [facility] of [place] [address] Aging Room Hand: Fahad Moore MD ALT [Catalytic activity/Vol] 18 U/L Normal 6-29 [facility] Comment on above: Performed By: #### 9 2664, 6399 #### [facility] of [address], [address] [place] [address] Aging Room Hand: Fahad Moore MD AST [Catalytic activity/Vol] 16 U/L Normal 10-35 [facility] Comment on above: Performed By: #### 9 575, 6399 #### [facility] of [place] [address] Aging Room Hand: Fahad Moore MD Bilirubin [Mass/Vol] 0.4 mg/dL Normal 0.2-1.2 [facility] Comment on above: Performed By: #### 9 130, 6399 #### [facility] of [place] [address] Aging Room Hand: Fahad Moore MD Calcium [Mass/Vol] 9.6 mg/dL Normal 8.6-10.4 [facility] Comment on above: Performed By: #### 9 593, 6399 #### [facility] of [address], [address] [place] [address] Aging Room Hand: Fhaad Moore MD Chloride [Moles/Vol] 93 mmol/L Low 98-110 [facility] Comment on above: Performed By: #### 9 226, 6399 #### [facility] of [place] [address] Aging Room Hand: Fahad Moore MD CO2 [Moles/Vol] 27 mmol/L Normal 20-32 [facility] Comment on above: Performed By: #### 9 476, 6399 #### [facility] of [address] [place] [address] Aging Room Hand: Fahad Moore MD Creatinine [Mass/Vol] 0.52 mg/dL Normal 0.50-1.03 [facility] Comment on above: Performed By: #### 9 087, 6399 #### [facility] [address], [address] [place] [address] Aging Room Hand: Fahad Moore MD ELECTROLYTE BALANCE 10 mmol/L (calc) Normal 7-17 [facility] Comment on above: Performed By: #### 9 312, 6399 #### [facility] [place] [address] Aging Room Hand: Fahad Moore MD GFR/1.73 sq M.predicted among non-blacks MDRD (S/P/Bld) [Vol rate/Area] 109 mL/min/{1.73_m2} Normal > OR = 60 [facility] Comment on above: Performed By: #### 9 800, 6399 #### [facility] [place] [address] Aging Room Hand: Fahad Moore MD Glucose [Mass/Vol] 144 mg/dL High 65-99 [facility] Comment on above: Result Comment: Fasting reference interval For someone without known diabetes, a glucose value >125 mg/dL indicates that they may have diabetes and this should be confirmed with a follow-up test. Performed By: #### 9 225, 6399 #### [facility] [address], [address] [place] [address] Aging Room Hand: Fahad Moore MD Potassium [Moles/Vol] 4.4 mmol/L Normal 3.5-5.3 [facility] Comment on above: Performed By: #### 9 509, 6399 #### [facility] [place] [address] Aging Room Hand: Fahad Moore MD Protein [Mass/Vol] 7.1 g/dL Normal 6.1-8.1 [facility] Comment on above: Performed By: #### 9 420, 6399 #### [facility] of [facility] [address], [address] [place] [address] Aging Room Hand: Fahad Moore MD Sodium [Moles/Vol] 130 mmol/L Low 135-146 [facility] Comment on above: Performed By: #### 9 1615, 6399 #### [facility] of [facility] [address] [place] [address] Rd, [address] [place] [address] Aging Room Hand: Fahad Moore MD Urea nitrogen [Mass/Vol] 15 mg/dL Normal 7-25 [facility] Comment on above: Performed By: #### 9 2665, 6399 #### [facility] of [address], [address] [place] [address] Aging Room Hand: Fahad Moore MD MR/PAT.JAEon 06-08-2025 MR/PAT.[facility] Medical Records Department [address] [place] [address] PAT - Anesthesia 06/08/25 1632 MR#: [id number] Acct: [id number] Name: REINIER MENDOZA Rep #: [id number] : 1970 55 From: Stephen Martin MD PCP: REGGIE Arias Status:PRE [facility] Y Race: C Location: [facility] Pre-Assessment Diagnosis/Proposed Procedure Planned Operative Procedure(s): 360 LUMBAR FUSION L2-L3 L3-4 WITH REVISION OF POSTERIOR INSTRUMENTATION L2-3 L3-4 L4-5 L5-S1 REMOVAL OF PREVIOUS HARDWARE Anesthesia History 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 Hx Hospitalization No 05/26/25 10:10 Any Problems [...] take am of surgery PONV PONV - public works inspector: PONV - public works inspector Female Yes 05/26/25 10:10 HX of Motion [...] 03/23/25 13:41 Respiratory Assessment Respiratory Assessment - public works inspector: Respiratory Tract Infection Hx - public works inspector Hx Respiratory Tract Infection No 05/26/25 10:10 STOP Sleep Apnea STOP Sleep Apnea - public works inspector: STOP Sleep Apnea - public works inspector Hx Hypertension Yes: CONTROLLED WITH MEDS 05/26/25 [...] Tobacco Use History Tobacco Use History - public works inspector: Tobacco Use History - public works inspector Tobacco Use Smoking Status Former smoker 05/26/25 10:10 Hx Tobacco Use No 05/26/25 10:10 Years Smoking Packs Smoked per Day Smoking Cessation Date was Yes - quit smoking within 15 05/26/25 10:10 within the last 15 years years Hx Smoking Cessation Date 08/10/22 05/26/25 10:10 Hx Smoking Cessation No 05/26/25 10:10 Counseling Hematologic Medial History Hematologic Hx - public works inspector: 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 (more content not included)... Normal [facility] Orthopedic Visit Reporton Orthopedic Visit Report [facility] [address] [place] [address] OFFICE VISIT Date of Service: 06/08/25 MR#: [id number] Acct: [id number] Name: REINIER MENDOZA Manjit Rep #: [id number] : 1970 Provider: Dr. Yair Benedict MD Age/Sex: 55/F [place] [facility] Status: Signed Intake Vital [...] PO TID PRN pain 05/26/25 History omega 9-pnp-crx-fish oil 1,200 mg 2 cap PO DAILY [...] by me, Dr. Yair Benedict MD 06/08/25 1303. Part of today???s visit was documented by [...] surgery. Hyponatrem (more content not included)... Normal [facility] PROTHROMBIN TIME-INRon 06-08 INR Coag (PPP) [Relative time] 1.0 {INR} Normal [facility] Comment on above: Result Comment: Refe rence Range 0.9-1.1 Moderate-intensity Warfarin Therapy 2.0-3.0 Higher-intensity Warfarin Therapy 3.0-4.0 Performed By: #### 9 2665, 6399 #### [facility] [address], [address] [place], [place] [address] Aging Room Hand: Fahad Moore MD PT Coag (PPP) [Time] 10.2 s Normal 9.0-11.5 [facility] Comment on above: Result Comment: For additional information, please refer to http://education.[employer]/faq/WTX516 (This link is being provided for informational/ educational purposes only.) Performed By: #### 9 2665, 6399 #### [facility] [address], [address] [place], [place] [address] Aging Room Hand: Fahad Moore MD Spine Lumbar without Contras ton 06-08-2025 Spine Lumbar without Contrast [facility] Imaging Services [address] [place], [place] [id number] Spine Lumbar without Contrast MR#: [id number] Acct: [id number] Name: REINIER MENDOZA Manjit Rep #: [id number] : 1970 F 55 From: Fred Santoyo MD PCP: Suzanne Arroyo NP-Jonh Status: REG CLI Study: Spine Lumbar without Contrast Date of Exam: Exam# [id number] Ordering Dr: Yair Benedict MD PROCEDURE: CT [...] the prior MRI from 03/16/2025. Reading Location: [id number] CC: REGGIE Arroyo; Dr. Yair Benedict MD Public Health Service Officer: Signed [facility] MRSA/SAID NASAL SCREENon MRSA+SAID SCRN Reason for Exam: Linda lindsey MRSA MRSA Negative S. AUREUS S. aureus PositiveA Normal [facility] Comment on above: Performed By: #### L 501.9985, L100.0100, M100.651, L500.2500, BTSPAT ####[facility] [address] [facility] [place], [place], [id number] MR/Jorge Luis 06-02-2025 MR/KALI [facility] Medical Records Department [address] [place] [address] PAT - Anesthesia 06/02/25 1722 MR#: [id number] Acct: [id number] Name: REINIER MENDOZA Rep #: [id number] : 1970 55 From: Stephen Martin MD PCP: Suzanne Arroyo HEAT TREATER HEADLiliyaC Status:PRE IN Y Race: C Location: [facility] Pre-Assessment Diagnosis/Proposed Procedure Planned Operative Procedure(s): 360 LUMBAR FUSION L2-L3 L3-4 WITH REVISION OF POSTERIOR INSTRUMENTATION L2-3 L3-4 L4-5 L5-S1 REMOVAL OF PREVIOUS HARDWARE Anesthesia History 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 Hx Hospitalization No 05/26/25 10:10 Any Problems [...] take am of surgery PONV PONV - public works inspector: PONV - public works inspector Female Yes 05/26/25 10:10 HX of Motion [...] 03/23/25 13:41 Respiratory Assessment Respiratory Assessment - public works inspector: Respiratory Tract Infection Hx - public works inspector Hx Respiratory Tract Infection No 05/26/25 10:10 STOP Sleep Apnea STOP Sleep Apnea - public works inspector: STOP Sleep Apnea - public works inspector Hx Hypertension Yes: CONTROLLED WITH MEDS 05/26/25 [...] Tobacco Use History Tobacco Use History - public works inspector: Tobacco Use History - public works inspector Tobacco Use Smoking Status Former smoker 05/26/25 10:10 Hx Tobacco Use No 05/26/25 10:10 Years Smoking Packs Smoked per Day Smoking Cessation Date was Yes - quit smoking within 15 05/26/25 10:10 within the last 15 years years Hx Smoking Cessation Date 08/10/22 05/26/25 10:10 Hx Smoking Cessation No 05/26/25 10:10 Counseling Hematologic Medial History Hematologic Hx - public works inspector: 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 Normal [facility] 12 Lead EKGon 06-01-2025 12 Lead EKG [facility] Cardiovascular Services [address] [place] [address] 12 Lead EKG 06/01/25 1404 MR#: [id number] Acct: [id number] Name: REINIER MENDOZA Rep #: [id number] : 1970 55 From: Francesco Dorado MD Attending Dr: Dr. Yair Benedict MD Status: PRE IN Ordering Dr: Yair Benedict MD Date: 06/01/25 Location: [facility] Sex: F C Admitted: Test Reason : PREOP Blood Pressure : */* mmHG Vent. Rate : 67 BPM Atrial Rate : 67 BPM P-R Int : 180 ms QRS Dur : 90 ms QT Int : 426 ms P-R-T Axes : 39 -3 40 degrees QTcB Int : 450 ms Normal sinus rhythm Normal ECG Confirmed by Francesco Dorado ([id number]), medical editor KEVIN SQUIRES ([id number]) on 06/02/2025 7:08:29 AM Referred By: Yair Benedict Confirmed By: Francesco Dorado 06/02/25 0708 Date Francesco Dorado MD CC: HEAT TREATER HEAD-C Suzanne Arroyo; Dr. Yair Benedict MD Signed Normal [facility] Basic Metabolic Profile (BMP )on 06-01-2025 BUN/CRE 25.1 RATIO High 05-[address] [facility] Comment on above: Performed By: #### L 501.9985, L100.0100, M100.651, L500.2500, BTSPAT ####[facility] [address] [place], [place], [id number] Calcium [Mass/Vol] 9.1 mg/dL Normal 7.6-11.0 [facility] Comment on above: Performed By: #### L 501.9985, L100.0100, M100.651, L500.2500, BTSPAT ####[facility] [address] [place], [address] Chloride [Moles/Vol] 95 mmol/L Low 98-[address] [facility] Comment on above: Performed By: #### L 501.9985, L100.0100, M100.651, L500.2500, BTSPAT ####[facility] [address] [place], [address] CO2 [Moles/Vol] 18.6 mmol/L Low 21.0-32.[address] [facility] Comment on above: Performed By: #### L 501.9985, L100.0100, M100.651, L500.2500, BTSPAT ####[facility] [address] [place], [address] Creatinine [Mass/Vol] 0.53 mg/dL Low 0.70-1.[address] [facility] Comment on above: Performed By: #### L 501.9985, L100.0100, M100.651, L500.2500, BTSPAT ####[facility] [address] [place], [address] GAP 14 Normal 5-[address] [facility] Comment on above: Performed By: #### L 501.9985, L100.0100, M100.651, L500.2500, BTSPAT ####[facility] [address] [place], [address] GFR/1.73 sq M.predicted among non-blacks MDRD (S/P/Bld) [Vol rate/Area] 109 mL/min/{1.73_m2} Normal >[address] [facility] Comment on above: Result Comment: mL/m in/1.73m2 CKD-EPI Creatinine Equation (2020) Performed By: #### L 501.9985, L100.0100, M100.651, L500.2500, BTSPAT ####[facility] [address] [place], [address] Glucose [Mass/Vol] 135 mg/dL High 70-99 [facility] Comment on above: Performed By: #### L 501.9985, L100.0100, M100.651, L500.2500, BTSPAT ####[facility] [address] [place], [address] Potassium [Moles/Vol] 4.4 mmol/L Normal 3.3-5.[address] [facility] Comment on above: Performed By: #### L 501.9985, L100.0100, M100.651, L500.2500, BTSPAT ####[facility] [address] [place], [address] Sodium [Moles/Vol] 128 mmol/L Low 133-145 [facility] Comment on above: Performed By: #### L 501.9985, L100.0100, M100.651, L500.2500, BTSPAT ####[facility] [address] [place], [address] Urea nitrogen [Mass/Vol] 13 mg/dL Normal 4-[address] [facility] Comment on above: Performed By: #### L 501.9985, L100.0100, M100.651, L500.2500, BTSPAT ####[facility] [address] [place], [address] CBC W/Diff, Automatedon 10-2 3-2024 Absolute Lymph 2.20 X10 3/uL Normal 0.83-4.[address] [facility] Comment on above: Performed By: #### L 501.9985, L100.0100, M100.651, L500.2500, BTSPAT #### [facility] [address] [place], [address] Absolute Neut 4.1 X10 3/uL Normal 2.0-7.[address] [facility] Comment on above: Performed By: #### L 501.9985, L100.0100, M100.651, L500.2500, BTSPAT #### [facility] [address] [place], [address] Basophils/100 WBC (Bld) 0.4 % Normal 0-[address] [facility] Comment on above: Performed By: #### L 501.9985, L100.0100, M100.651, L500.2500, BTSPAT #### [facility] [address] [place], [address] Eosinophils/100 WBC (Bld) 1.7 % Normal 0-[address] [facility] Comment on above: Performed By: #### L 501.9985, L100.0100, M100.651, L500.2500, BTSPAT #### [facility] [address] [place], [address] Erythrocyte distribution width (RBC) [Ratio] 12.3 % Normal 11.6-14.[address] [facility] Comment on above: Performed By: #### L 501.9985, L100.0100, M100.651, L500.2500, BTSPAT #### [facility] [address] [place], [address] Hematocrit (Bld) [Volume fraction] 37.0 % Normal 37-[address] [facility] Comment on above: Performed By: #### L 501.9985, L100.0100, M100.651, L500.2500, BTSPAT #### [facility] [address] [place], [address] Hemoglobin (Bld) [Mass/Vol] 13.3 g/dL Normal 12.0-15.[address] [facility] Comment on above: Performed By: #### L 501.9985, L100.0100, M100.651, L500.2500, BTSPAT #### [facility] [address] [place], [address] IG% 0.600 Normal 0.0-0.[address] [facility] Comment on above: Result Comment: IG% - Immature Granulocytes (promyelocytes, myelocytes and metamyelocytes) > 1% indicates that a LEFT SHIFT is Present. Performed By: #### L 501.9985, L100.0100, M100.651, L500.2500, BTSPAT #### [facility] [address] [place], [address] Lymphocytes/100 WBC (Bld) 30.9 % Normal 19-[address] [facility] Comment on above: Performed By: #### L 501.9985, L100.0100, M100.651, L500.2500, BTSPAT #### [facility] [address] [place], [address] MCH (RBC) [Entitic mass] 30.5 pg Normal 27.0-32.[address] [facility] Comment on above: Performed By: #### L 501.9985, L100.0100, M100.651, L500.2500, BTSPAT #### [facility] [address] [place], [address] MCHC (RBC) [Mass/Vol] 35.9 g/dL Normal 32-[address] [facility] Comment on above: Performed By: #### L 501.9985, L100.0100, M100.651, L500.2500, BTSPAT #### [facility] [address] [place], [address] MCV (RBC) [Entitic vol] 84.9 fL Normal 81-[address] [facility] Comment on above: Performed By: #### L 501.9985, L100.0100, M100.651, L500.2500, BTSPAT #### [facility] [address] [place], [address] Monocytes/100 WBC (Bld) 8.7 % Normal 0-[address] [facility] Comment on above: Performed By: #### L 501.9985, L100.0100, M100.651, L500.2500, BTSPAT #### [facility] [address] [place], [address] Neutrophils/100 WBC (Bld) 57.7 % Normal 47-[address] [facility] Comment on above: Performed By: #### L 501.9985, L100.0100, M100.651, L500.2500, BTSPAT #### [facility] [address] [place], [address] Nucleated RBC (Bld) [#/Vol] 0 10*3/uL Normal 0-[address] [facility] Comment on above: Performed By: #### L 501.9985, L100.0100, M100.651, L500.2500, BTSPAT #### [facility] [address] [place], [address] Platelet mean volume (Bld) [Entitic vol] 9.1 fL Normal 6.2-12.[address] [facility] Comment on above: Performed By: #### L 501.9985, L100.0100, M100.651, L500.2500, BTSPAT #### [facility] [address] [place], [address] Platelets (Bld) [#/Vol] 297 10*3/uL Normal 150-[address] [facility] Comment on above: Performed By: #### L 501.9985, L100.0100, M100.651, L500.2500, BTSPAT #### [facility] [address] [place], [address] RBC (Bld) [#/Vol] 4.36 10*6/uL Normal 4.2-5.4 [facility] Comment on above: Performed By: #### L 501.9985, L100.0100, M100.651, L500.2500, BTSPAT #### [facility] [address] [place], [address] RDW SD 37.7 fl Normal 35.1-43.[address] [facility] Comment on above: Performed By: #### L 501.9985, L100.0100, M100.651, L500.2500, BTSPAT #### [facility] [address] [place], [address] WBC (Bld) [#/Vol] 7.1 10*3/uL Normal 4.4-11.0 [facility] Comment on above: Performed By: #### L 501.9985, L100.0100, M100.651, L500.2500, BTSPAT #### [facility] [address] [place], [address] Hemoglobin A1con 06-01-2025 HbA1c (Bld) [Mass fraction] 6.4 % High <=5.[address] [facility] Comment on above: Result Comment: Norm al < 5.7 % Prediabetic 5.7 - 6.4 % Diabetic >or= 6.5 % Please note range changes. Performed By: #### L 501.9985, L100.0100, M100.651, L500.2500, BTSPAT #### [facility] [address] [place], [address] Magnesiumon 06-01-2025 Magnesium [Mass/Vol] 1.8 mg/dL Normal 1.5-2.[address] [facility] Comment on above: Performed By: #### L 503.6005, M200.1000 #### [facility] [address] [place], [address] Type AND Screen - PAT ONLYon 06-01-2025 ABO and Rh group Nom (Bld) Blood group O Rh(D) positive Normal [facility] Comment on above: Order Comment: Surge ry Date: 06/12/25Reason for Laboratory Test [id number] LUMBAR FUSION Performed By: #### L 501.9985, L100.0100, M100.651, L500.2500, BTSPAT ####[facility] [address] [place], [address] MR/BMS.BPon 05-23-2025 MR/BMS.BP [address], [address] [place] [address] OFFICE VISIT Date of Service: 05/23/25 MR#: [id number] Acct: [id number] Name: REINIER MENDOZA Rep #: [id number] : 1970 Provider: Dr. Demario Jin se, DO Age/Sex: 55/F [place] [facility] [place]: Signed Intake Vital Signs 03/23/25 13:41 05/23/25 13:49 Height 5 ft 6.5 in 5 ft 6.5 in Weight: 235 lb 2 oz BMI 37.3 BP Intake Visit Reasons: 2-3mfu Allergies azithromycin Allergy (Mild, Verified 03/23/25 13:45) Hives Sulfa (Sulfonamide Antibiotics) Allergy (Mild, Verified 03/23/25 13:45) Other [facility] Medical History (Updated 03/23/25 @ 14:22 [...] BID 60 (more content not included)... Normal [facility] COMPREHENSIVE METABOLIC PANE L W/ANION GAPon 04-20-2025 Albumin [Mass/Vol] 4.4 g/dL Normal 3.6-5.1 [facility] Comment on above: Performed By: #### 1 9152, 97180, 51536 #### [facility] [place] [address] Aging Room Hand: Fahad Moore MD ALP [Catalytic activity/Vol] 51 U/L Normal 37-153 [facility] Comment on above: Performed By: #### 1 6802, 65607, 77845 #### [facility] [place] [address] Aging Room Hand: Fahad Moore MD ALT [Catalytic activity/Vol] 23 U/L Normal 6-29 [facility] Comment on above: Performed By: #### 1 6802, 63746, 98909 #### [facility] [place] [address] Aging Room Hand: Fahad Moore MD AST [Catalytic activity/Vol] 21 U/L Normal 10-35 [facility] Comment on above: Performed By: #### 1 5882, 34548, 74259 #### [facility] [place] [address] Aging Room Hand: Fahad Moore MD Bilirubin [Mass/Vol] 0.3 mg/dL Normal 0.2-1.2 [facility] Comment on above: Performed By: #### 1 6801, 60479, 23318 #### [facility] [place] [address] Aging Room Hand: Fahad Moore MD Calcium [Mass/Vol] 9.6 mg/dL Normal 8.6-10.4 [facility] Comment on above: Performed By: #### 1 6801, 46279, 02113 #### [facility] [place] [address] Aging Room Hand: Fahad Moore MD Chloride [Moles/Vol] 92 mmol/L Low 98-110 [facility] Comment on above: Performed By: #### 1 6801, , 16369 #### [facility] [place] [address] Aging Room Hand: Fahad Moore MD CO2 [Moles/Vol] 25 mmol/L Normal 20-32 [facility] Comment on above: Performed By: #### 1 6801, , 52184 #### [facility] [place] [address] Aging Room Hand: Fahad Moore MD Creatinine [Mass/Vol] 0.47 mg/dL Low 0.50-1.03 [facility] Comment on above: Performed By: #### 1 6801, , 21620 #### [facility] [place] [address] Aging Room Hand: Fahad Moore MD ELECTROLYTE BALANCE 10 mmol/L (calc) Normal 7-17 [facility] Comment on above: Performed By: #### 1 6801, 48411, 62341 #### [facility] [place] [address] Aging Room Hand: Fahad Moore MD GFR/1.73 sq M.predicted among non-blacks MDRD (S/P/Bld) [Vol rate/Area] 112 mL/min/{1.73_m2} Normal > OR = 60 [facility] Comment on above: Performed By: #### 1 6802, 31462, 98821 #### [facility] [place] [address] Aging Room Hand: Fahad Moore MD Glucose [Mass/Vol] 117 mg/dL High 65-99 [facility] Comment on above: Result Comment: Fasting reference interval For someone without known diabetes, a glucose value between 100 and 125 mg/dL is consistent with prediabetes and should be confirmed with a follow-up test. Performed By: #### 1 2, 85027, 68117 #### [facility] [place] [address] Aging Room Hand: Fahad Moore MD Potassium [Moles/Vol] 4.4 mmol/L Normal 3.5-5.3 [facility] Comment on above: Performed By: #### 1 6801, , 34897 #### [facility] [place] [address] Aging Room Hand: Fahad Moore MD Protein [Mass/Vol] 7.2 g/dL Normal 6.1-8.1 [facility] Comment on above: Performed By: #### 1 6801, 96422, 72607 #### [facility] [place] [address] Aging Room Hand: Fahad Moore MD Sodium [Moles/Vol] 127 mmol/L Low 135-146 [facility] Comment on above: Performed By: #### 1 6801, 42950, 01834 #### [facility] [place] [address] Aging Room Hand: Fahad Moore MD Urea nitrogen [Mass/Vol] 21 mg/dL Normal 7-25 [facility] Comment on above: Performed By: #### 1 6801, 28003, 60332 #### [facility] [place] [address] Aging Room Hand: Fahad Moore MD HEMOGLOBIN A1c WITH eAGon eAG (mmol/L) 9.0 mmol/L Normal [facility] Comment on above: Performed By: #### 1 6802, 11212, 34499 #### [facility] [place] [address] Aging Room Hand: Fahad Moore MD HbA1c (Bld) [Mass fraction] [...] for children. Performed By: #### 1 6802, 91699, 34913 #### [facility] [place] [address] Aging Room Hand: Fahad Moore MD Magnesium [Mass/Vol] 163 mg/dL Normal [facility] Comment on above: Performed By: #### 1 6802, 12323, 70810 #### [facility] [place] [address] Aging Room Hand: Fahad Moore MD TSH W/REFLEX TO FT4on 2024 TSH W/REFLEX TO FT4 Normal [facility] Comment on above: Performed By: #### 1 6802, 54296, 78566 #### [facility] [place] [address] Aging Room Hand: Fahad Moore MD Orthopedic Visit Reporton Orthopedic Visit Report [facility] [address] [place] [address] OFFICE VISIT Date of Service: 03/23/25 MR#: [id number] Acct: [id number] Name: REINIER MENDOZA Rep #: [id number] : 1970 Provider: Dr. Yair Benedict MD Age/Sex: 55/F [place] [facility] [place] Status: Signed Intake Vital [...] you fallen in the past year?: Yes [facility] Medical History (Updated 03/23/25 @ 14:22 [...] pain in (more content not included)... Normal [facility] Spine Cervical (Routine)on 0 03-16-2025 Spine Cervical (Routine) [facility] [address] [place] [address] Spine Cervical (Routine) MR#: [id number] Acct: [id number] Name: REINIER MENDOZA Rep #: [id number] : 1970 F 55 From: Jim Ochoa MD PCP: REGGIE Arias Status: REG CLI Study: Spine Cervical (Routine) Date of Exam: Exam# [id number] Ordering Dr: Yair Benedict MD PROCEDURE: SPINE [...] C6-C7. No significant canal stenosis. Reading Location: [facility] CC: [employer] [place] [place]-C Suzanne Arroyo; Dr. Yair Benedict MD Public Health Service Officer: Signed Normal [facility] Spine Lumbar (Routine)on Spine Lumbar (Routine) [facility] [address] [place] [address] Spine Lumbar (Routine) MR#: [id number] Acct: [id number] Name: REINIER MENDOZA Manjit Rep #: [id number] : 1970 F 55 From: Jim Ochoa MD PCP: Suzanne Arroyo, CARLIC Status: REG CLI Study: Spine Lumbar (Routine) Date of Exam: 03/16/25 Exam# [id number] Ordering Dr: Yair Benedict MD PROCEDURE: SPINE [...] of the canal at L2-L3. Reading Location: [facility] CC: REGGIE Arroyo; Dr. Yair Benedict MD Public Health Service Officer: Signed Normal [facility] MR/BMS.BPon 03-07-2025 MR/BMS.BP [address], [address] [place] [address] OFFICE VISIT Date of Service: 03/07/25 MR#: [id number] Acct: [id number] Name: REINIER MENDOZA Rep #: [id number] : 1970 Provider: Dr. Demario Jin se, DO Age/Sex: 55/F [place] [facility] [place]: Signed Intake Vital Signs 01/05/25 14:26 03/07/25 16:21 Height 5 ft 6.5 in 5 ft 6.5 in BP Intake Visit Reasons: 2 M FU Allergies azithromycin Allergy (Mild, Verified 09/27/24 13:55) Hives Sulfa (Sulfonamide Antibiotics) Allergy (Mild, Verified 09/27/24 13:55) Other [facility] Medical History (Updated 02/24/25 @ 12:13 [...] unspecified bupropion (more content not included)... Normal [facility] L/S Spine Min 4 Views02-07 L/S Spine Min 4 Views [facility] [address] [facility] [place], [place] [address] L/S Spine Min 4 Views MR#: [id number] Acct: [id number] Name: REINIER MENDOZA Manjit Rep #: [id number] : 1970 F 55 From: Heidi Akers PCP: REGGIE Arias Status: DEP AMB Study: L/S Spine Min 4 Views Date of Exam: 02/24/25 Exam# [id number] Ordering Dr: Maria Luisa Taylor PROCEDURE: L/S [...] changes of the lumbar spine. Reading Location: [facility] CC: REGGIE Arroyo; MIKA Allen Public Health Service Officer: Signed Normal [facility] Orthopedic Visit Reporton Orthopedic Visit Report [facility] [address] [place] [address] [address] [place] [address] OFFICE VISIT Date of Service: 02/24/25 MR#: [id number] Acct: [id number] Name: REINIER MENDOZA Rep #: [id number] : 1970 Provider: Dr. Yair Benedict MD Age/Sex: 55/F [place] [facility] [place] Status: Signed Intake Vital [...] levels, r (more content not included)... Normal [facility] Hemoglobin A1con 02-03-2025 HbA1c (Bld) [Mass fraction] 7.0 % High <=5.[address] [facility] Comment on above: Result Comment: Norm al < 5.7 % Prediabetic 5.7 - 6.4 % Diabetic >or= 6.5 % Please note range changes. Performed By: #### L 503.3196, M200.1000 #### [facility] [place], [address] MR/BMS.BPon 01-05-2025 MR/BMS.[address], [address] [place] [address] OFFICE VISIT Date of Service: 01/05/25 MR#: [id number] Acct: [id number] Name: REINEIR MENDOZA Rep #: [id number] : 1970 Provider: Dr. Demario Jin se, DO Age/Sex: 54/F [place] [facility] [place] Status: Signed Intake Vital Signs 11/23/24 15:37 01/05/25 14:26 Height 5 ft 6.5 in 5 ft 6.5 in BP Intake Visit Reasons: 6 wk FU Allergies azithromycin Allergy (Mild, Verified 09/27/24 13:55) Hives Sulfa (Sulfonamide Antibiotics) Allergy (Mild, Verified 09/27/24 13:55) Other [facility] Medical History (Updated 06/08/24 @ 10:22 [...] to o (more content not included)... Normal [facility] Hemoglobin A1con 12-13-2024 HbA1c (Bld) [Mass fraction] 8.0 % High <=5.[address] [facility] Comment on above: Result Comment: Norm al < 5.7 % Prediabetic 5.7 - 6.4 % Diabetic >or= 6.5 % Please note range changes. Performed By: #### L 503.6005, M200.1000 #### [facility] [address] [place], [place], [address] MR/BMS.BPon 11-23-2024 MR/BMS.BP [address], [address] [place] [address] OFFICE VISIT Date of Service: 11/23/24 MR#: [id number] Acct: [id number] Name: REINIER MENDOZA Rep #: [id number] : 1970 Provider: Dr. Demario Jin se, DO Age/Sex: 54/F [place] [facility] [place] Status: Signed Intake Vital [...] Antibiotics) Allergy (Mild, Verified 09/27/24 13:55) Other [facility] Medical History (Updated 06/08/24 @ 10:22 [...] effects incl (more content not included)... Normal [facility] BI TRANSFER OF OUTSIDE FILMS on 10-24-2024 BI TRANSFER OF OUTSIDE FILMS Outside images for comparison or treatment purposes, not interpreted by Radiologists. Normal [facility] Study Interpretation of outs iwona studyon 10-24-2024 Outside images for comparison or treatment purposes, not interpreted by Radiologists. IMAGING MR/BMS.BPon 10-13-2024 MR/BMS.[address], [address] [place] [address] OFFICE VISIT Date of Service: 10/13/24 MR#: [id number] Acct: [id number] Name: REINIER MENDOZA Rep #: [id number] : 1970 Provider: Dr. Demario Jin se, DO Age/Sex: 54/F [place] [facility] [place] Status: Signed Intake Vital [...] Antibiotics) Allergy (Mild, Verified 09/27/24 13:55) Other [facility] Medical History (Updated 06/08/24 @ 10:22 [...] didn't cost a significant amount of money. [place] like she Had to have the couch. [...] aripiprazole 7.5 m (more content not included)... [facility] BI MAMMO BILATERAL SCREENING TOMOSYNTHESISon 10-11-2024 BI MAMMO BILATERAL SCREENING TOMOSYNTHESIS Interpreted By: Cricket Whelan, STUDY: BI MAMMO BILATERAL SCREENING TOMOSYNTHESIS; 10/11/2024 2:22 pm ACCESSION NUMBER(S): [id number] ORDERING CLINICIAN: SUZANNE ARROYO INDICATION: Screening. COMPARISON: [...] Cricket Whelan 10/20/2024 8:42 AM Dictation workstation: [id number] [facility] MR/BMS.BPon 09-27-2024 MR/BMS.BP [facility] [address], [address] [place] [address] OFFICE VISIT Date of Service: 09/27/24 MR#: [id number] Acct: [id number] Name: REINIER MENDOZA Rep #: [id number] : 1970 Provider: Dr. Demario Jin se, DO Age/Sex: 54/F [place] [facility] [place] Status: Signed Intake Vital [...] urinary urge (more content not included)... Normal [facility] MR/BMS.BPon 07-26-2024 MR/BMS.[address], [address] [place] [address] OFFICE VISIT Date of Service: 07/26/24 MR#: [id number] Acct: [id number] Name: REINIER MENDOZA Rep #: [id number] : 1970 Provider: Dr. Demario Jin se, DO Age/Sex: 54/F [place] [facility] [place] Status: Signed Intake Vital Signs 05/26/24 13:04 07/26/24 11:17 Height 5 ft 6.5 in 5 ft 6.5 in BP Intake Visit Reasons: 2 M FU Allergies azithromycin Allergy (Mild, Verified 12/17/23 13:29) Hives Sulfa (Sulfonamide Antibiotics) Allergy (Mild, Verified 12/17/23 13:29) Other [facility] Medical History (Updated 06/08/24 @ 10:22 [...] Bipolar disorde (more content not included)... Normal [facility] Bacteria identifiedon 2023 Bacteria identified Cx Nom (U) Test: Urine Culture Specimen Source: Clean Catch/Voided Specimen Type: Urine Specimen Date: 07/08/2024 1051 Result Date: 07/11/2024925 Result Status: Final result Abnormal: Yes Resulting Lab: [facility] [id number] [place] [address] CULTURE >=100,000 CFU/mL Klebsiella pneumoniae/variicola (Abnormal) SUSCEPTIBILITY Klebsiella pneumoniae/variicola METHOD MICROSCAN - AMOXICILLIN/CLAVULANATE <=8/4 ug/ml Susceptible AMPICILLIN >16.000 ug/ml Resistant AMPICILLIN/SULBACTAM <=4/2 ug/ml Susceptible CEFAZOLIN <=2 ug/ml Susceptible CEFAZOLIN (UNCOMPLICATED UTIS ONLY) <=2 ug/ml Susceptible CIPROFLOXACIN <=0.250 ug/ml Susceptible GENTAMICIN <=2.000 ug/ml Susceptible NITROFURANTOIN <=32 ug/ml Susceptible PIPERACILLIN/TAZOBACTAM <=8.000 ug/ml Susceptible TRIMETHOPRIM/SULFAMETHOXA ZOLE <=2/38 ug/ml Susceptible Abnormal [facility] Comment on above: Performed By: #### 6 30-4 #### ANTONIETA Wagner ([id number]) [facility] ([facility]) [address] [place] [address] POCT UA Automated manually r esultedOrdered By: Tashi Mays on 07-08-2024 Appearance (U) Cloudy Abnormal Clear [facility] Glucose Test strip (U) [Mass/Vol] 100 (1+) Abnormal NEGATIVE mg/dl [facility] Hemoglobin Ql (U) Negative NEGATIVE [facility] Interpretation and review of laboratory results Abnormal [facility] Leukocyte esterase Test strip Ql (U) SMALL (1+) Abnormal NEGATIVE [facility] Nitrite Ql (U) Positive Abnormal NEGATIVE [facility] pH (U) 6.5 [pH] No Reference Range Established [facility] POC Bilirubin, Urine Negative NEGATIVE [facility] POC Color, Urine Yellow Straw, Yellow, Light-Yellow [facility] POC Ketones, Urine Negative NEGATIVE mg/dl [facility] POC Protein, Urine 300 (3+) Abnormal NEGATIVE, 30 (1+) mg/dl [facility] POC Specific [place], Urine 1.020 1.005 - 1.035 [facility] POC Urobilinogen, Urine 0.2 0.2, 1.0 EU/DL [facility] Basic metabolic 2000 panelon 06-20-2024 Anion gap [Moles/Vol] 12 mmol/L Normal 10-20 [facility] Comment on above: Performed By: #### 2 4321-2 #### VELIA HAUSER ([id number]) [facility] ([facility]) [facility] [place] [address] Calcium [Mass/Vol] 9.2 mg/dL Normal 8.6-10.3 [facility] Comment on above: Performed By: #### 2 4321-2 #### VELIA HAUSER ([id number]) [facility] ([facility]) [address] [place] [address] Chloride [Moles/Vol] 98 mmol/L Normal 98-107 [facility] Comment on above: Performed By: #### 2 4321-2 #### VELIA HAUSER ([id number]) [facility] ([facility]) [address] [place] [address] CO2 [Moles/Vol] 25 mmol/L Normal 21-32 [facility] Comment on above: Performed By: #### 2 4321-2 #### VELIA HAUSER ([id number]) [facility] ([facility]) [address] [place] [address] Creatinine [Mass/Vol] 0.52 mg/dL Normal 0.50-1.05 [facility] Comment on above: Performed By: #### 2 4321-2 #### VELIA HAUSER ([id number]) [facility] ([facility]) [address] [place] [address] GFR/1.73 sq M.predicted MDRD (S/P/Bld) [Vol rate/Area] mL/min/{1.73_m2} Normal >60 [facility] Comment on above: Result Comment: Calc ulations of estimated GFR are performed using the 2020 CKD-EPI Study Refit equation without the race variable for the IDMS-Traceable creatinine methods. https://jasn.asnjournals.org/content/early/ASN.8473955 988 Performed By: #### 2 4321-2 #### VELIA HAUSER ([id number]) [facility] ([facility]) [address] [place] [address] Glucose [Mass/Vol] 185 mg/dL High 74-99 [facility] Comment on above: Performed By: #### 2 4321-2 #### VELIA HAUSER ([id number]) [facility] ([facility]) [facility] [place] [address] Potassium [Moles/Vol] 4.3 mmol/L Normal 3.5-5.3 [facility] Comment on above: Performed By: #### 2 4321-2 #### VELIA HAUSER ([id number]) [facility] ([facility]) [address] [place] [address] Sodium [Moles/Vol] 131 mmol/L Low 136-145 [facility] Comment on above: Performed By: #### 2 4321-2 #### VELIA HAUSER ([id number]) [facility] ([facility]) [address] [place] [address] Urea nitrogen [Mass/Vol] 12 mg/dL Normal 6-23 [facility] Comment on above: Performed By: #### 2 4321-2 #### VELIA HAUSER ([id number]) [facility] ([facility]) [address] [place] [address] HbA1c (Bld) [Mass fraction]o n 06-20-2024 Average glucose Estimated from glycated hemoglobin (Bld) [Mass/Vol] 146 mg/dL Normal Not Established [facility] Comment on above: Order Comment: Diagn osis of Diabetes-Adults Non-Diabetic: < or = 5.6% Increased risk for developing diabetes: 5.7-6.4% Diagnostic of diabetes: > or = 6.5% Performed By: #### 4 548-4 #### ANTONIETA Wagner ([id number]) [facility] ([facility]) [address] [place] [address] Hemoglobin A1c/Hemoglobin.to zulema 06-20-2024 HbA1c (Bld) [Mass fraction] 6.7 % High See comment [facility] Comment on above: Order Comment: Diagn osis of Diabetes-Adults Non-Diabetic: < or = 5.6% Increased risk for developing diabetes: 5.7-6.4% Diagnostic of diabetes: > or = 6.5% Performed By: #### 4 548-4 #### ANTONIETA Wagner ([id number]) [facility] ([facility]) [address] [place] [address] Basic metabolic 2000 panelon 06-17-2024 Anion gap [Moles/Vol] 12 mmol/L 10 - 20 mmol/L [facility] Calcium [Mass/Vol] 9 mg/dL 8.6 - 10. 3 mg/dL [facility] Chloride [Moles/Vol] 93 mmol/L Low 98 - 10 7 mmol/L [facility] CO2 [Moles/Vol] 24 mmol/L 21 - 32 mmol/L [facility] Creatinine [Mass/Vol] 0.58 mg/dL 0.50 - 1.05 mg/dL [facility] eGFR - PINF [facility] Comment on above: Calculations of nick mated GFR are performed using the 2020 CKD-EPI Study Refit equation without the race variable for the IDMS-Traceable creatinine methods. https://jasn.asnjournals.org/content/early//ASN.0085064 988 Glucose [Mass/Vol] 151 mg/dL High 74 - 99 mg/dL [facility] Interpretation and review of laboratory results Abnormal [facility] Potassium [Moles/Vol] 4.1 mmol/L 3.5 - 5.3 mmol/L [facility] Sodium [Moles/Vol] 125 mmol/L Low 136 - 145 mmol/L [facility] Urea nitrogen [Mass/Vol] 15 mg/dL 6 - 23 mg/dL [facility] CBC W Auto Differential pane l (Bld)on 06-17-2024 Basophils (Bld) [#/Vol] 0.02 10*3/uL [facility] Basophils/100 WBC (Bld) 0.3 % 0.0 - 2.0 % [facility] Eosinophils (Bld) [#/Vol] 0.03 10*3/uL [facility] Eosinophils/100 WBC (Bld) 0.5 % 0.0 - 6.0 % [facility] Erythrocyte distribution width (RBC) [Ratio] 12.9 % 11.5 - 14.5 % [facility] Hematocrit (Bld) [Volume fraction] 34.9 % Low 36.0 - 46.0 % [facility] Hemoglobin (Bld) [Mass/Vol] 12.3 g/dL 12.0 - 16.0 g/dL [facility] Immature granulocytes (Bld) [#/Vol] 0.04 10*3/uL [facility] Immature granulocytes/100 WBC (Bld) 0.6 % 0.0 - 0.9 % [facility] Comment on above: Immature Granulocyte Count (IG) includes promyelocytes, myelocytes and metamyelocytes but does not include bands. Percent differential counts (%) should be interpreted in the context of the absolute cell counts (cells/UL). Interpretation and review of laboratory results Abnormal [facility] Lymphocytes (Bld) [#/Vol] 1.39 10*3/uL [facility] Lymphocytes/100 WBC (Bld) 22 % 13.0 - 44.0 % [facility] MCH (RBC) [Entitic mass] 29.6 pg 26.0 - 34.0 pg [facility] MCHC (RBC) [Mass/Vol] 35.2 g/dL 32.0 - 36.0 g/dL [facility] MCV (RBC) [Entitic vol] 84 fL 80 - 100 fL [facility] Monocytes (Bld) [#/Vol] 0.58 10*3/uL [facility] Monocytes/100 WBC (Bld) 9.2 % 2.0 - 10.0 % [facility] Neutrophils (Bld) [#/Vol] 4.25 10*3/uL [facility] Comment on above: Percent differential counts (%) should be interpreted in the context of the absolute cell counts (cells/uL). Neutrophils/100 WBC (Bld) 67.4 % 40.0 - 80.0 % [facility] Nucleated RBC/100 WBC (Bld) [Ratio] 0 % [facility] Platelets (Bld) [#/Vol] 215 10*3/uL [facility] RBC (Bld) [#/Vol] 4.15 10*6/uL [facility] WBC (Bld) [#/Vol] 6.3 10*3/uL [facility] CT Abdomen and Pelvis W cont rast [...] Bren Banks 06/17/2024 1:55 PM Dictation workstation: [id number] MMODAL Interpreted By: Bren Wall, STUDY: CT ABDOMEN PELVIS W IV CONTRAST; 06/17/2024 1:44 pm INDICATION: Signs/Symptoms:bilat flank pain, urinary symptoms. COMPARISON: None. ACCESSION NUMBER(S): [id number] ORDERING CLINICIAN: KARISSA ELLINGTON TECHNIQUE: CT of [...] pain, urinary symptoms. COMPARISON: None. ACCESSION NUMBER(S): [id number] ORDERING CLINICIAN: KARISSA ELLINGTON TECHNIQUE: CT of [...] Bren Banks 06/17/2024 1:55 PM Dictation workstation: [id number] [facility] Work Phone: Radiology Study observation (narrative) [facility] Work Phone: CT Abdomen and Pelvis W cont rast IVOrdered By: Bren Banks on 06-17-2024 [facility] Work Phone: Hepatic function 2000 panelo n 06-17-2024 Albumin BCP dye [Mass/Vol] 4 g/dL 3.4 - 5.0 g/dL [facility] ALP [Catalytic activity/Vol] 54 U/L 33 - 110 U/L [facility] ALT With P-5'-P [Catalytic activity/Vol] 26 U/L 7 - 45 U/L [facility] Comment on above: Patients treated wit h Sulfasalazine may generate falsely decreased results for ALT. AST With P-5'-P [Catalytic activity/Vol] 24 U/L 9 - 39 U/L [facility] Bilirubin [Mass/Vol] 0.4 mg/dL 0.0 - 1 .2 mg/dL [facility] Bilirubin.direct [Mass/Vol] 0.1 mg/dL 0.0 - 0.3 mg/dL [facility] Protein [Mass/Vol] 6.9 g/dL 6.4 - 8.2 g/dL [facility] Lipaseon 06-17-2024 Lipase [Catalytic activity/Vol] 44 U/L 9 - 82 U/L [facility] Lipase [Catalytic activity/V ol]on 06-17-2024 Venipuncture immedia tely after or during the administration of Metamizole may lead to falsely low results. Testing should be performed immediately prior to Metamizole dosing. [facility] No Panel Informationon 06-17 Interpretation and review of laboratory results Normal [facility] Interpretation and review of laboratory results Abnormal [facility] Urinalysis complete W Reflex Culture panel (U)on 06-17-2024 Appearance (U) Clear Clear [facility] Bilirubin (U) [Mass/Vol] Negative NEGATIVE [facility] Color (U) Yellow Light-Yellow , Yellow, Dark-Yellow [facility] Glucose Auto test strip (U) [Mass/Vol] Normal Normal mg/dL [facility] Ketones (U) [Mass/Vol] Negative NEGATIVE mg/dL [facility] Leukocyte esterase Auto test strip Ql (U) 250 Paulina/ L Abnormal NEGATIVE [facility] Nitrite Auto test strip Ql (U) Negative NEGATIVE [facility] pH (U) 6.5 [pH] 5.0, 5.5, 6.0, 6.5, 7.0, 7.5, 8.0 [facility] Protein (U) [Mass/Vol] 70 (1+) Abnormal NEGATIVE, 10 (TRACE), 20 (TRACE) mg/dL [facility] RBC (U) [#/Vol] Negative NEGATIVE [facility] Specific gravity (U) [Rel density] 1.027 1.005 - 1.035 [facility] Urobilinogen (U) [Mass/Vol] Normal Normal mg/dL [facility] Urinalysis microscopic panel Auto Ql (U)on 06-17-2024 Bacteria Auto (Urine sed) [#/Area] 1+ Abnormal NONE SEEN /HPF [facility] Crystals.amorphous Computer assisted (U) [#/Area] 1+ NONE, 1+, 2+ /HPF [facility] Epithelial cells.squamous Auto (Urine sed) [#/Area] 1-9 (SPARSE) Reference range not established. /HPF [facility] RBC Auto (Urine sed) [#/Area] 3-5 NONE, 1-2, 3-5 /HPF [facility] Transitional cells Computer assisted (U) [#/Area] 1-2 (FEW) Reference range not established. /HPF [facility] WBC Auto (Urine sed) [#/Area] 21-50 Abnormal 1-5, NONE /HPF [facility] POCT SARS-COV-2/FLU/RSV PCR SYMPTOMATIC manually resultedOrdered By: Thalia Michelle on 04-25-2024 FLUAV RNA KATHERIN+probe Ql (Resp) Not detected Not Detected [facility] FLUBV RNA KATHERIN+probe Ql (Resp) Not detected Not Detected [facility] RSV RNA KATHERIN+probe Ql (Resp) Not detected Not Detected [facility] SARS-CoV-2 (COVID-19) RNA KATHERIN+probe Ql (Resp) Not detected Not Detected [facility] HEMOGLOBIN A1Con 03-11-2023 Glucose [Mass/Vol] 209 mg/dL Normal [facility] Comment on above: Performed By: #### H BA1E #### [address] [address] HbA1c (Bld) [Mass fraction] 8.9 % Abnormal [facility] Comment on above: Result Comment: Diag nosis of Diabetes-Adults Non-Diabetic: < or = 5.6% Increased risk for developing diabetes: 5.7-6.4% Diagnostic of diabetes: > or = 6.5% . Monitoring of Diabetes Age (y) Therapeutic Goal (%) Adults: >18 <7.0 Pediatrics: 13-18 <7.5 7-12 <8.0 0- 6 7.5-8.5 [employer]. Diabetes Care 33(S1), Aug 2009. Performed By: #### H BA1E #### [address] [address] Blood Pressure Cuff Sizeon 0 08-21-2022 Fall risk assessment a) No falls within the last year [facility] Work Phone: Tobacco use status CPHS a) Yes [facility] Work Phone: Blood Pressure Cuff Size Adult [facility] Work Phone: Blood Pressure Cuff Size Yes [facility] Work Phone: Office Visit [...] Diabetes; JAMIE = N; Verified Transmission to [employer]; Last Updated By: LawPal; 08/21/2022 3:35:32 PM Hemoglobin A1C; Status:Active; Requested for:19Nov2022; Perform:Lab Services - Lab To Draw (Blood Test); Due:[id number];Ordered; For:Diabetes; Ordered By:James Sahu; Eczema Start: Triamcinolone Acetonide 0.1 % External Cream; APPLY AND RUB IN A THIN FILM TO AFFECTED AREAS TWICE DAILY.(AM AND PM) Rx By: James Sahu; Dispense: 0 Days ; #:1 X 30 GM Tube; Refill: 0;For: Eczema; JAMIE = N; Verified Transmission to [employer]; Last Updated By: LawPal; 08/21/2022 3:42:40 PM Provider Impressions .1. Uncontrolled DMII - a1c was 10.6 in 11/29 -> 9.9% - jardiance and farxgia too expensive - continue metformin 1000mg po bid - on pioglitazone - will see if mounjaro or other once weekly injection is covered 2 HTN - on coreg, losartan 3. Bipolar depression, anxiety - sees psych , will be changing to [place] - on Effexor and mirtazapine 4. VADIM on CPAP - is still using recalled fernandez machine, needs to have a new order sent to local [employer] [facility] [employer] company om anyone - reports last [place] - looks like we faxed and order [...] TabletTAKE 1 TABLET DAILY. D3-50 1.25 MG (40531 UT) Oral CapsuleTAKE 1 CAPSULE ONCE DAILY FreeStyle Beena 3 SensorUse with cell phone gareth. Change sensor every 2 weeks. Ibuprofen 200 MG Oral TabletTAKE 3 TABLET Every 6 hours PRN Losartan Potassium 100 MG Oral TabletTake 1 tablet daily Magnesium Gluconate 500 MG Oral TabletTAKE 1 TABLET DAILY. Clau (more content not included)... Normal [employer] CBC AND DIFFERENTIALon 08-18 % AUTOMATED IMMATURE GRAN 0.5 % Normal 0.0 - 0.9 [facility] Comment on above: Result Comment: Opal ture Granulocyte Count (IG) includes promyelocytes, myelocytes and metamyelocytes but does not include bands. Percent differential counts (%) should be interpreted in the context of the absolute cell counts (cells/L). Performed By: #### C BCDF #### [address] [address] Basophils (Bld) [#/Vol] 0.04 10*3/uL Normal 0.00 - 0.10 [facility] Comment on above: Performed By: #### C BCDF #### [address] [address] Basophils/100 WBC (Bld) 0.5 % Normal 0.0 - 2.0 [facility] Comment on above: Performed By: #### C BCDF #### [address] [address] Eosinophils (Bld) [#/Vol] 0.14 10*3/uL Normal 0.00 - 0.70 [facility] Comment on above: Performed By: #### C BCDF #### [address] [address] Eosinophils/100 WBC (Bld) 1.8 % Normal 0.0 - 6.0 [facility] Comment on above: Performed By: #### C BCDF #### [address] [address] Erythrocyte distribution width (RBC) [Ratio] 12.6 % Normal 11.5 - 14.5 [facility] Comment on above: Performed By: #### C BCDF #### [address] [address] Hematocrit (Bld) [Volume fraction] 37.5 % Normal 36.0 - 46.0 [facility] Comment on above: Performed By: #### C BCDF #### [address] [address] Hemoglobin (Bld) [Mass/Vol] 13.0 g/dL Normal 12.0 - 16.0 [facility] Comment on above: Performed By: #### C BCDF #### [address] [address] Lymphocytes (Bld) [#/Vol] 2.92 10*3/uL Normal 1.20 - 4.80 [facility] Comment on above: Performed By: #### C BCDF #### [address] [address] Lymphocytes/100 WBC (Bld) 36.8 % Normal 13.0 - 44.0 [facility] Comment on above: Performed By: #### C BCDF #### [address] [address] MCHC (RBC) [Mass/Vol] 34.7 g/dL Normal 32.0 - 36.0 [facility] Comment on above: Performed By: #### C BCDF #### [address] [address] MCV (RBC) [Entitic vol] 90 fL Normal 80 - 100 [facility] Comment on above: Performed By: #### C BCDF #### [address] [address] Monocytes (Bld) [#/Vol] 0.54 10*3/uL Normal 0.10 - 1.00 [facility] Comment on above: Performed By: #### C BCDF #### [address] [address] Monocytes/100 WBC (Bld) 6.8 % Normal 2.0 - 10.0 [facility] Comment on above: Performed By: #### C BCDF #### [address] [address] Neutrophils (Bld) [#/Vol] 4.25 10*3/uL Normal 1.20 - 7.70 [facility] Comment on above: Result Comment: Perc ent differential counts (%) should be interpreted in the context of the absolute cell counts (cells/L). Performed By: #### C BCDF #### [address] [address] Neutrophils/100 WBC (Bld) 53.6 % Normal 40.0 - 80.0 [facility] Comment on above: Performed By: #### C BCDF #### [address] [place] [address] Platelets (Bld) [#/Vol] 269 10*3/uL Normal 150 - 450 [facility] Comment on above: Performed By: #### C BCDF #### [address] [address] RBC 4.16 x10E12/L Normal 4.00 - 5.20 [facility] Comment on above: Performed By: #### C BCDF #### [address] [address] WBC (Bld) [#/Vol] 7.9 10*3/uL Normal 4.4 - 11.3 [facility] Comment on above: Performed By: #### C BCDF #### [address] [address] COMPREHENSIVE PANELon 2022 Albumin [Mass/Vol] 4.1 g/dL Normal 3.4 - 5.0 [facility] Comment on above: Performed By: #### C MP #### [address] [address] ALP [Catalytic activity/Vol] 68 U/L Normal 33 - 110 [facility] Comment on above: Performed By: #### C MP #### [address] [address] ALT [Catalytic activity/Vol] 42 U/L Normal 7 - 45 [facility] Comment on above: Result Comment: Sharmila ents treated with Sulfasalazine may generate falsely decreased results for ALT. Performed By: #### C MP #### [address] [address] Anion gap [Moles/Vol] 15 mmol/L Normal 10 - 20 [facility] Comment on above: Performed By: #### C MP #### [address] [address] AST [Catalytic activity/Vol] 36 U/L Normal 9 - 39 [facility] Comment on above: Performed By: #### C MP #### [address] [address] Bilirubin [Mass/Vol] 0.4 mg/dL Normal 0.0 - 1.2 [facility] Comment on above: Performed By: #### C MP #### [address] [address] Calcium [Mass/Vol] 9.3 mg/dL Normal 8.6 - 10.3 [facility] Comment on above: Performed By: #### C MP #### [address] [address] Chloride [Moles/Vol] 96 mmol/L Low 98 - 107 [facility] Comment on above: Performed By: #### C MP #### [address] [address] Creatinine [Mass/Vol] 0.50 mg/dL Normal 0.50 - 1.05 [facility] Comment on above: Performed By: #### C MP #### [address] [address] eGFR FEMALE >90 Normal >90 [facility] Comment on above: Result Comment: CALC ULATIONS OF ESTIMATED GFR ARE PERFORMED USING THE 2020 CKD-EPI STUDY REFIT EQUATION WITHOUT THE RACE VARIABLE FOR THE IDMS-TRACEABLE CREATININE METHODS. https://jasn.asnjournals.org/content//ASN.2945820 988 Performed By: #### C MP #### [address] [address] Glucose [Mass/Vol] 334 mg/dL High 74 - 99 [facility] Comment on above: Performed By: #### C MP #### [address] [address] HCO3 (Bld) [Moles/Vol] 24 mmol/L Normal 21 - 32 [facility] Comment on above: Performed By: #### C MP #### [address] [address] Potassium [Moles/Vol] 4.3 mmol/L Normal 3.5 - 5.3 [facility] Comment on above: Performed By: #### C MP #### [address] [address] Protein [Mass/Vol] 6.9 g/dL Normal 6.4 - 8.2 [facility] Comment on above: Performed By: #### C MP #### [address] [address] Sodium [Moles/Vol] 131 mmol/L Low 136 - 145 [facility] Comment on above: Performed By: #### C MP #### [address] [address] Urea nitrogen [Mass/Vol] 9 mg/dL Normal 6 - 23 [facility] Comment on above: Performed By: #### C MP #### [address] [address] Complete Blood Count + Diffe ronaldtialon 08-18-2022 Basophils/100 WBC (Bld) 0.5 % 0.0 - 2.0 [facility] Work Phone: [phone] Erythrocyte distribution width (RBC) [Ratio] 12.6 % See Below [facility] Work Phone: [phone] Comment on above: Reference Range: 11. 5 - 14.5 Hematocrit (Bld) [Volume fraction] 37.5 % See Below [facility] Work Phone: [phone] Comment on above: Reference Range: 36. 0 - 46.0 Hemoglobin (Bld) [Mass/Vol] 13.0 g/dL See Below [facility] Work Phone: [phone] Comment on above: Reference Range: 12. 0 - 16.0 Lymphocytes/100 WBC (Bld) 36.8 % See Below [facility] Work Phone: [phone] Comment on above: Reference Range: 13. 0 - 44.0 MCHC (RBC) [Mass/Vol] 34.7 g/dL See Below [facility] Work Phone: [phone] Comment on above: Reference Range: 32. 0 - 36.0 MCV (RBC) [Entitic vol] 90 fL 80 - 100 [facility] Work Phone: [phone] Monocytes/100 WBC (Bld) 6.8 % 2.0 - 10.0 [facility] Work Phone: [phone] Neutrophils/100 WBC (Bld) 53.6 % See Below [facility] Work Phone: [phone] Comment on above: Reference Range: 40. 0 - 80.0 Platelets (Bld) [#/Vol] 269 10*3/uL 150 - 450 [facility] Work Phone: [phone] RBC (Bld) [#/Vol] 4.16 {x10E12/L} See Below [facility] Work Phone: [phone] Comment on above: Reference Range: 4.0 0 - 5.20 WBC (Bld) [#/Vol] 7.9 10*3/uL 4.4 - 11.3 [facility] Work Phone: [phone] Complete Blood Count + Differential 0.04 {x10E9/L} See Below [facility] Work Phone: [phone] Comment on above: Reference Range: 0.0 0 - 0.10 Complete Blood Count + Differential 0.14 {x10E9/L} See Below [facility] Work Phone: [phone] Comment on above: Reference Range: 0.0 0 - 0.70 Complete Blood Count + Differential 0.54 {x10E9/L} See Below [facility] Work Phone: [phone] Comment on above: Reference Range: 0.1 0 - 1.00 Complete Blood Count + Differential 2.92 {x10E9/L} See Below [facility] Work Phone: [phone] Comment on above: Reference Range: 1.2 0 - 4.80 Complete Blood Count + Differential 4.25 {x10E9/L} See Below [facility] Work Phone: Comment on above: Reference Range: 1.2 0 - 7.70 Percent differential counts (%) should be interpreted in the context of the absolute cell counts (cells/L). Complete Blood Count + Differential 1.8 % 0.0 - 6.0 [facility] Work Phone: Complete Blood Count + Differential 0.5 % 0.0 - 0.9 [facility] Work Phone: Comment on above: Immature Granulocyte Count (IG) includes promyelocytes, myelocytes and metamyelocytes but does not include bands. Percent differential counts (%) should be interpreted in the context of the absolute cell counts (cells/L). FSH + LHon 08-18-2022 FOLLICLE STIM. HORMONE 24.7 IU/L Normal [facility] Comment on above: Result Comment: REF VALUES FOLLICULAR 2-12 MID-CYCLE 12-25 LUTEAL PHASE 2-12 MENOPAUSE 30-150 PREPUBERTY 50% ADULT ADULT MALE 2-10 INFANTS 0-1 Performed By: #### F SHL #### [facility] [address] [place] [address] LUTEINIZING HORMONE 17.6 IU/L Normal [facility] Comment on above: Result Comment: REF VALUES FOLLICULAR PHASE 1.9-12.5 MID-CYCLE 8.7-76.3 LUTEAL PHASE 0.5-16.9 POST MENOPAUSE 5.0-55.2 CHILDREN 0- 6.0 ADULT MALE 18-70 1.5- 9.3 ADULT MALE >70 3.1-34.6 Performed By: #### F SHL #### [facility] [address] [place] [address] HEMOGLOBIN A1Con 08-18-2022 Glucose [Mass/Vol] 237 mg/dL Normal [facility] Comment on above: Performed By: #### H BA1E #### [facility] [address] [place] [address] HbA1c (Bld) [Mass fraction] 9.9 % Abnormal [facility] Comment on above: Result Comment: Diag nosis of Diabetes-Adults Non-Diabetic: < or = 5.6% Increased risk for developing diabetes: 5.7-6.4% Diagnostic of diabetes: > or = 6.5% . Monitoring of Diabetes Age (y) Therapeutic Goal (%) Adults: >18 <7.0 Pediatrics: 13-18 <7.5 7-12 <8.0 0- 6 7.5-8.5 [employer]. Diabetes Care 33(S1), Aug 2009. Performed By: #### H BA1E #### [address] [place] [address] Hemoglobin A1Con 08-18-2022 Glucose [Mass/Vol] 237 mg/dL [facility] Work Phone: HbA1c (Bld) [Mass fraction] 9.9 % Abnormal [facility] Work Phone: Comment on above: Diagnosis of Diabete s-Adults Non-Diabetic: < or = 5.6% Increased risk for developing diabetes: 5.7-6.4% Diagnostic of diabetes: > or = 6.5%. Monitoring of Diabetes Age (y) Therapeutic Goal (%) Adults: >18 <7.0 Pediatrics: 13-18 <7.5 7-12 <8.0 0- 6 7.5-8.5 [employer]. Diabetes Care 33(S1), Aug 2009. LIPID PANEL (CORONARY RISK 2 )on 08-18-2022 Cholesterol [Mass/Vol] 284 mg/dL High 0 - 199 [facility] Comment on above: Result Comment: . AGE [...] dosing. Performed By: #### B MP #### [address] [address] Cholesterol in HDL [Mass/Vol] 51.0 mg/dL Normal [facility] Comment on above: Result Comment: . AGE VERY LOW LOW NORMAL HIGH 0-19 Y < 35 < 40 40-45 ---- 20-24 Y ---- < 40 >45 ---- >24 Y ---- < 40 40-60 >60 . Performed By: #### B MP #### [address] [address] Cholesterol.total/Ch olesterol in HDL [Mass ratio] 5.6 {ratio} Abnormal [facility] Comment on above: Result Comment: REF VALUES DESIRABLE < 3.4 HIGH RISK > 5.0 Performed By: #### B MP #### [address] [address] LDL - Normal 0 - 99 [facility] Comment on above: Result Comment: . NEAR [...] ASSAY. Performed By: #### B MP #### [address] [address] Triglyceride [Mass/Vol] 658 mg/dL High 0 - 149 [facility] Comment on above: Result Comment: . AGE [...] dosing. Performed By: #### B MP #### [address] [place] [address] VLDL SEE COMMENT Normal 0 - 40 [facility] Comment on above: Result Comment: Unab le to calculate VLDL. Performed By: #### B MP #### [address] [address] Laboratory - Chemistry and C hemistry - challengeon 08-18-2022 Albumin BCP dye [Mass/Vol] 4.1 g/dL 3.4 - 5.0 [facility] Work Phone: [phone] ALP [Catalytic activity/Vol] 68 U/L 33 - 110 [facility] Work Phone: [phone] ALT With P-5'-P [Catalytic activity/Vol] 42 U/L 7 - 45 [facility] Work Phone: [phone] Comment on above: Patients treated wit h Sulfasalazine may generate falsely decreased results for ALT. Anion gap [Moles/Vol] 15 mmol/L 10 - 20 [facility] Work Phone: [phone] AST With P-5'-P [Catalytic activity/Vol] 36 U/L 9 - 39 [facility] [facility] [place] Work Phone: [phone] Bilirubin [Mass/Vol] 0.4 mg/dL 0.0 - 1.2 [facility] Work Phone: [phone] Calcium [Mass/Vol] 9.3 mg/dL 8.6 - 10.3 [facility] Work Phone: [phone] Chloride [Moles/Vol] 96 mmol/L below low threshold 98 - 107 [facility] Work Phone: [phone] CO2 [Moles/Vol] 24 mmol/L 21 - 32 [facility] Work Phone: [phone] Creatinine [Mass/Vol] 0.50 mg/dL See Below [facility] Work Phone: [phone] Comment on above: Reference Range: 0.5 0 - 1.05 Follitropin Qn 24.7 {IU/L} [facility] Work Phone: [phone] Comment on above: REF VALUESFOLLICULAR 0-51KYA-PNWWM 12-25LUTEAL PHASE 2-12MENOPAUSE 30-150PREPUBERTY 50% ADULTADULT MALE 2-10INFANTS 0-1 Glucose [Mass/Vol] 334 mg/dL above high threshold 74 - 99 [facility] Work Phone: [phone] Lutropin Qn 17.6 {IU/L} [facility] Work Phone: [phone] Comment on above: REF VALUESFOLLICULAR PHASE 1.9-12.5MID-CYCLE 8.7-76.3LUTEAL PHASE 0.5-16.9POST MENOPAUSE 5.0-55.2CHILDREN 0- 6.0ADULT MALE 18-70 1.5- 9.3ADULT MALE >70 3.1-34.6 Potassium [Moles/Vol] 4.3 mmol/L 3.5 - 5.3 [facility] Work Phone: [phone] Protein [Mass/Vol] 6.9 g/dL 6.4 - 8.2 [facility] Work Phone: [phone] Sodium [Moles/Vol] 131 mmol/L below low threshold 136 - 145 [facility] Work Phone: [phone] Urea nitrogen [Mass/Vol] 9 mg/dL 6 - 23 [facility] Work Phone: [phone] Lipid Panelon 08-18-2022 Cholesterol [Mass/Vol] 284 mg/dL above high threshold 0 - 199 [facility] Work Phone: Comment on above: . AGE [...] dosing. Cholesterol in HDL [Mass/Vol] 51.0 mg/dL [facility]: Comment on above: . AGE VERY LOW LOW N ORMAL HIGH 0-19 Y < 35 < 40 40-45 ---- 20- 24 Y ---- < 40 >45 ---- >24 Y ---- < 40 40-60 >60. Cholesterol in LDL [Mass/Vol] - 0 - 99 [facility] Work Phone: [phone] Comment on above: . NEAR BORD AGE [...] in HDL [Mass ratio] 5.6 {ratio} Abnormal [facility] Work Phone: Comment on above: REF VALUESDESIRABLE < 3.4HIGH RISK > 5.0 Triglyceride [Mass/Vol] 658 mg/dL above high threshold 0 - 149 [facility] Work Phone: Comment on above: . AGE [...] Lipid Panel SEE COMMENT 0 - 40 [facility] Work Phone: Comment on above: Unable to calculate VLDL. No Panel Informationon 08-18 >90 >90 [facility] Work Phone: Comment on above: CALCULATIONS OF NICK MATED GFR ARE PERFORMED USING THE 2020 CKD-EPI STUDY REFIT EQUATION WITHOUT THE RACE VARIABLE FOR THE IDMS-TRACEABLE CREATININE METHODS.https://jasn.asnjournals.org/content/early/ASN .2086107133 TSHon 08-18-2022 TSH Qn 1.10 m[IU]/L Normal 0.44 - 3.98 [facility] Comment on above: Result Comment: TSH testing is performed using different testing methodology at [facility] than at other [facility]. Direct result comparisons should only be made within the same method. Performed By: #### T [facility] #### [place] [address] TSH - Thyroid Stimulating Ho rmone, Serumon 08-18-2022 TSH Qn 1.10 m[IU]/L See Below [facility] Work Phone: Comment on above: Reference Range: 0.4 4 - 3.98 TSH testing is performed using different testing methodology at [facility] than at other [facility]. Direct result comparisons should only be made [...] TabletTAKE 1 TABLET DAILY. D3-50 1.25 MG (79709 UT) Oral CapsuleTAKE 1 CAPSULE ONCE DAILY Free[employer] Beena 3 SensorUse with cell phone gareth. Change sensor every 2 weeks. Ibuprofen 200 MG Oral TabletTAKE 3 TABLET Every 6 hours PRN Losartan Potassium 1 (more content not included)... Normal [employer] BASIC METABOLIC PANELon 12-0 Anion gap [Moles/Vol] 17 mmol/L Normal 10 - 20 [facility] Comment on above: Performed By: #### B MP #### [address] [address] Calcium [Mass/Vol] 9.3 mg/dL Normal 8.6 - 10.3 [facility] Comment on above: Performed By: #### B MP #### [address] [address] Chloride [Moles/Vol] 95 mmol/L Low 98 - 107 [facility] Comment on above: Performed By: #### B MP #### [address] [address] Creatinine [Mass/Vol] 0.60 mg/dL Normal 0.50 - 1.05 [facility] Comment on above: Performed By: #### B MP #### [address] [address] eGFR FEMALE >90 Normal >90 [facility] Comment on above: Result Comment: CALC ULATIONS OF ESTIMATED GFR ARE PERFORMED USING THE 2020 CKD-EPI STUDY REFIT EQUATION WITHOUT THE RACE VARIABLE FOR THE IDMS-TRACEABLE CREATININE METHODS. https://jasn.asnjournals.org/content/early//ASN.5312086 988 Performed By: #### B MP #### [address] [address] Glucose [Mass/Vol] 380 mg/dL High 74 - 99 [facility] Comment on above: Performed By: #### B MP #### [address] [address] HCO3 (Bld) [Moles/Vol] 23 mmol/L Normal 21 - 32 [facility] Comment on above: Performed By: #### B MP #### [address] [address] Potassium [Moles/Vol] 4.1 mmol/L Normal 3.5 - 5.3 [facility] Comment on above: Result Comment: MILD HEMOLYSIS DETECTED. The result may be falsely elevated due to hemolysis or other interferents. Clinical correlation is recommended. Repeat testing may be considered. Performed By: #### B MP #### [address] [address] Sodium [Moles/Vol] 131 mmol/L Low 136 - 145 [facility] Comment on above: Performed By: #### B MP #### [address] [address] Urea nitrogen [Mass/Vol] 12 mg/dL Normal 6 - 23 [facility] Comment on above: Performed By: #### B MP #### [address] [address] Laboratory - Chemistry and C hemistry - challengeon 07-11-2022 Anion gap [Moles/Vol] 17 mmol/L 10 - 20 [facility] Dar[facility] 3 DO Work Phone: Calcium [Mass/Vol] 9.3 mg/dL 8.6 - 10.3 MP-Nep hrolog y-[facility] [place] Darryn 3 DO Work Phone: [phone] Chloride [Moles/Vol] 95 mmol/L below low threshold 98 - 107 -Nephrolog [place] [address] DO Work Phone: [phone] CO2 [Moles/Vol] 23 mmol/L 21 - 32 -Nephro log [place] [address] DO Work Phone: [phone] Creatinine [Mass/Vol] 0.60 mg/dL See Below [facility] [place] [address] DO Work Phone: [phone] Comment on above: Reference Range: 0.5 0 - 1.05 Glucose [Mass/Vol] 380 mg/dL above high threshold 74 - 99 [facility] [address] [facility] Work Phone: [phone] Potassium [Moles/Vol] 4.1 mmol/L 3.5 - 5.3 [facility] [address] [facility] Work Phone: [phone] Comment on above: MILD HEMOLYSIS DETEC BERTA. The result may be falsely elevated due tohemolysis or other interferents. Clinical correlation is recommended.Repeat testing may be considered. Sodium [Moles/Vol] 131 mmol/L below low threshold 136 - 145 [facility] [address] DO Work Phone: [phone] Urea nitrogen [Mass/Vol] 12 mg/dL 6 - 23 [facility] [place] [address] DO Work Phone: No Panel Informationon 07-11 >90 >90 [facility] [place] [address] DO Work Phone: Comment on above: CALCULATIONS OF NICK MATED GFR ARE PERFORMED USING THE 2020 CKD-EPI STUDY REFIT EQUATION WITHOUT THE RACE VARIABLE FOR THE IDMS-TRACEABLE CREATININE METHODS.https://jasn.asnjournals.org/content//ASN .5087467891 BASIC METABOLIC PANELon 11-1 Anion gap [Moles/Vol] 12 mmol/L Normal 10 - 20 [facility] Comment on above: Performed By: #### B MP #### [address] [address] Sodium [Moles/Vol] 129 mmol/L Low 136 - 145 [facility] Comment on above: Result Comment: Conf irmed by repeat analysis Performed By: #### B MP #### [address] [address] Calcium [Mass/Vol] 9.2 mg/dL Normal 8.6 - 10.3 [facility] Comment on above: Performed By: #### B MP #### [address] [address] Chloride [Moles/Vol] 94 mmol/L Low 98 - 107 [facility] Comment on above: Performed By: #### B MP #### [address] [address] Creatinine [Mass/Vol] 0.53 mg/dL Normal 0.50 - 1.05 [facility] Comment on above: Performed By: #### B MP #### [address] [address] eGFR FEMALE >90 Normal >90 [facility] Comment on above: Result Comment: CALC ULATIONS OF ESTIMATED GFR ARE PERFORMED USING THE 2020 CKD-EPI STUDY REFIT EQUATION WITHOUT THE RACE VARIABLE FOR THE IDMS-TRACEABLE CREATININE METHODS. https://jasn.asnjournals.org/content/early/ASN.1872603 988 Performed By: #### B MP #### [address] [address] Glucose [Mass/Vol] 218 mg/dL High 74 - 99 [facility] Comment on above: Performed By: #### B MP #### [address] [address] HCO3 (Bld) [Moles/Vol] 27 mmol/L Normal 21 - 32 [facility] Comment on above: Performed By: #### B MP #### [address] [place] [address] Potassium [Moles/Vol] 4.2 mmol/L Normal 3.5 - 5.3 [facility] Comment on above: Performed By: #### B MP #### [address] [address] Urea nitrogen [Mass/Vol] 12 mg/dL Normal 6 - 23 [facility] Comment on above: Performed By: #### B MP #### [address] [address] Laboratory - Chemistry and C hemistry - challengeon 06-24-2022 Anion gap [Moles/Vol] 12 mmol/L 10 - 20 -Nephrolog [facility] 3 DO Work Phone: [phone] Calcium [Mass/Vol] 9.2 mg/dL 8.6 - 10.3 MP-Nep hrolog [facility] 3 DO Work Phone: Chloride [Moles/Vol] 94 mmol/L below low threshold 98 - 107 -Nephrolog [facility] 3 DO Work Phone: [phone] CO2 [Moles/Vol] 27 mmol/L 21 - 32 MP-Nephro log [facility] 3 DO Work Phone: Creatinine [Mass/Vol] 0.53 mg/dL See Below -Nephrolog [facility] 3 DO Work Phone: Comment on above: Reference Range: 0.5 0 - 1.05 Glucose [Mass/Vol] 218 mg/dL above high threshold 74 - 99 -Nephrolog [facility] 3 DO Work Phone: Potassium [Moles/Vol] 4.2 mmol/L 3.5 - 5.3 -Nephrolog [facility] 3 DO Work Phone: [phone] Sodium [Moles/Vol] 129 mmol/L below low threshold 136 - 145 -Nephrolog [facility] 3 DO Work Phone: Comment on above: Confirmed by repeat analysis Urea nitrogen [Mass/Vol] 12 mg/dL -Nephrolog y-[facility] Darryn 3 DO Work Phone: No Panel Informationon 06-24 >90 >90 -Nephrolog y-[facility] Darryn 3 DO Work Phone: Comment on above: CALCULATIONS OF NICK MATED GFR ARE PERFORMED USING THE 2020 CKD-EPI STUDY REFIT EQUATION WITHOUT THE RACE VARIABLE FOR THE IDMS-TRACEABLE CREATININE METHODS.https://jasn.asnjournals.org/content/early/ASN .7632743712 BASIC METABOLIC PANELon ANION GAP Canceled Normal [facility] Comment on above: Order Comment: TEST BASIC METABOLIC PANEL WAS CANCELLED, 06/12/2022 16:16 GROSSLY HEMOLYZED. Performed By: #### B MP #### [place] [address] BICARBONATE Canceled Normal [facility] Comment on above: Order Comment: TEST BASIC METABOLIC PANEL WAS CANCELLED, 06/12/2022 16:16 GROSSLY HEMOLYZED. Performed By: #### B MP #### [address] [address] CALCIUM Canceled Normal [facility] Comment on above: Order Comment: TEST BASIC METABOLIC PANEL WAS CANCELLED, 06/12/2022 16:16 GROSSLY HEMOLYZED. Performed By: #### B MP #### [address] [address] CHLORIDE Canceled Normal [facility] Comment on above: Order Comment: TEST BASIC METABOLIC PANEL WAS CANCELLED, 06/12/2022 16:16 GROSSLY HEMOLYZED. Performed By: #### B MP #### [place] [id number] CREATININE Canceled Normal [facility] Comment on above: Order Comment: TEST BASIC METABOLIC PANEL WAS CANCELLED, 06/12/2022 16:16 GROSSLY HEMOLYZED. Performed By: #### B MP #### [address] [address] eGFR FEMALE Canceled Normal [facility] Comment on above: Order Comment: TEST BASIC METABOLIC PANEL WAS CANCELLED, 06/12/2022 16:16 GROSSLY HEMOLYZED. Result Comment: CALC ULATIONS OF ESTIMATED GFR ARE PERFORMED USING THE 2020 CKD-EPI STUDY REFIT EQUATION WITHOUT THE RACE VARIABLE FOR THE IDMS-TRACEABLE CREATININE METHODS. https://jasn.asnjournals.org/content/early/ASN.3997529 988 Performed By: #### B MP #### [address] [address] eGFR MALE Canceled Normal [facility] Comment on above: Order Comment: TEST BASIC METABOLIC PANEL WAS CANCELLED, 06/12/2022 16:16 GROSSLY HEMOLYZED. Result Comment: CALC ULATIONS OF ESTIMATED GFR ARE PERFORMED USING THE 2020 CKD-EPI STUDY REFIT EQUATION WITHOUT THE RACE VARIABLE FOR THE IDMS-TRACEABLE CREATININE METHODS. https://jasn.asnjournals.org/content/early/ASN.2235876 988 Performed By: #### B MP #### [address] [address] GLUCOSE Canceled Normal [facility] Comment on above: Order Comment: TEST BASIC METABOLIC PANEL WAS CANCELLED, 06/12/2022 16:16 GROSSLY HEMOLYZED. Performed By: #### B MP #### [address] [address] POTASSIUM Canceled Normal [facility] Comment on above: Order Comment: TEST BASIC METABOLIC PANEL WAS CANCELLED, 06/12/2022 16:16 GROSSLY HEMOLYZED. Performed By: #### B MP #### [address] [address] SODIUM Canceled Normal [facility] Comment on above: Order Comment: TEST BASIC METABOLIC PANEL WAS CANCELLED, 06/12/2022 16:16 GROSSLY HEMOLYZED. Performed By: #### B MP #### [address] [address] UREA NITROGEN Canceled Normal [facility] Comment on above: Order Comment: TEST BASIC METABOLIC PANEL WAS CANCELLED, 06/12/2022 16:16 GROSSLY HEMOLYZED. Performed By: #### B #### [facility] [address] [place] [address] Established Visit (Nephrolog y)on 06-12-2022 Established Visit [...] TabletTAKE 1 TABLET DAILY. D3-50 1.25 MG (35543 UT) Oral CapsuleTAKE 1 CAPSULE ONCE DAILY [...] DAILY W (more content not included)... Normal [employer] [facility] - Chemistry and C hemistry - challengeon 06-12-2022 Calcium [Mass/Vol] Canceled MP-Nep hrolog [facility] 3 DO Work Phone: Chloride [Moles/Vol] Canceled MP-N ephrolog [facility] 3 DO Work Phone: CO2 [Moles/Vol] Canceled MP-Nephro log [facility] 3 DO Work Phone: Creatinine [Mass/Vol] Canceled MP-Nephrolog [facility] 3 DO Work Phone: Glucose [Mass/Vol] Canceled MP-Nep hrolog [facility] 3 DO Work Phone: Potassium [Moles/Vol] [facility]eled [facility] Work Phone: Sodium [Moles/Vol] Canceled MP-Nep hrolog y-[facility] Darryn 3 DO Work Phone: Urea nitrogen [Mass/Vol] Canceled MP-Nephrolog [facility] 3 DO Work Phone: No Panel Informationon 06-12 Canceled MP-Nephrolog y-[facility] 3 DO Work Phone: Comment on above: CALCULATIONS OF NICK MATED GFR ARE PERFORMED USING THE 2020 CKD-EPI STUDY REFIT EQUATION WITHOUT THE RACE VARIABLE FOR THE IDMS-TRACEABLE CREATININE METHODS.https://jasn.asnjournals.org/content/early/ASN .9047516687 Tobacco Screening.on 022 Tobacco use status [facility] a) Yes [facility] 230 DO Work Phone: Established Visit (Nephrolog [...] TabletTAKE 1 TABLET DAILY. D3-50 1.25 MG (76892 UT) Oral CapsuleTAKE 1 CAPSULE ONCE DAILY [...] 2 T (more content not included)... Normal [employer] Tobacco Screening.on 022 Tobacco use status [facility] a) Yes GN-[facility] 230 DO Work Phone: Tobacco Screening. Yes MG-Uro logy-A [place] 230 DO Work Phone: BASIC METABOLIC PANELon 05-10 Anion gap [Moles/Vol] 17 mmol/L Normal 10 - 20 [facility] Comment on above: Performed By: #### B MP #### [address] [address] Calcium [Mass/Vol] 9.8 mg/dL Normal 8.6 - 10.3 [facility] Comment on above: Performed By: #### B MP #### [address] [address] Chloride [Moles/Vol] 95 mmol/L Low 98 - 107 [facility] Comment on above: Performed By: #### B MP #### [address] [address] Creatinine [Mass/Vol] 0.51 mg/dL Normal 0.50 - 1.05 [facility] Comment on above: Performed By: #### B MP #### [address] [address] eGFR FEMALE >90 Normal >90 [facility] Comment on above: Result Comment: CALC ULATIONS OF ESTIMATED GFR ARE PERFORMED USING THE 2020 CKD-EPI STUDY REFIT EQUATION WITHOUT THE RACE VARIABLE FOR THE IDMS-TRACEABLE CREATININE METHODS. https://jasn.asnjournals.org/content//ASN.3020763 988 Performed By: #### B MP #### [address] [address] Glucose [Mass/Vol] 250 mg/dL High 74 - 99 [facility] Comment on above: Performed By: #### B MP #### [address] [address] HCO3 (Bld) [Moles/Vol] 24 mmol/L Normal 21 - 32 [facility] Comment on above: Performed By: #### B MP #### [address] [address] Potassium [Moles/Vol] 4.6 mmol/L Normal 3.5 - 5.3 [facility] Comment on above: Performed By: #### B MP #### [address] [address] Sodium [Moles/Vol] 131 mmol/L Low 136 - 145 [facility] Comment on above: Performed By: #### B MP #### [address] [address] Urea nitrogen [Mass/Vol] 14 mg/dL Normal 6 - 23 [facility] Comment on above: Performed By: #### B MP #### [address] [address] CARBAMAZEPINEon 05-23-2022 CARBAMAZEPINE 12.1 ug/mL High 4.0 - 12.0 [facility] Comment on above: Performed By: #### B MP #### [address] [address] CBC AND DIFFERENTIALon 05-23 Basophils (Bld) [#/Vol] 0.00 10*3/uL Normal 0.00 - 0.10 [facility] Comment on above: Performed By: #### B MP #### [address] [address] Basophils/100 WBC (Bld) 0.4 % Normal 0.0 - 2.0 [facility] Comment on above: Performed By: #### B MP #### [address] [address] Eosinophils (Bld) [#/Vol] 0.10 10*3/uL Normal 0.00 - 0.70 [facility] Comment on above: Performed By: #### B MP #### [address] [address] Eosinophils/100 WBC (Bld) 1.8 % Normal 0.0 - 6.0 [facility] Comment on above: Performed By: #### B MP #### [address] [address] Erythrocyte distribution width (RBC) [Ratio] 13.1 % Normal 11.5 - 14.5 [facility] Comment on above: Performed By: #### B MP #### [address] [address] Hematocrit (Bld) [Volume fraction] 42.2 % Normal 36.0 - 46.0 [facility] Comment on above: Performed By: #### B MP #### [address] [address] Hemoglobin (Bld) [Mass/Vol] 14.3 g/dL Normal 12.0 - 16.0 [facility] Comment on above: Performed By: #### B MP #### [address] [address] Lymphocytes (Bld) [#/Vol] 3.10 10*3/uL Normal 1.20 - 4.80 [facility] Comment on above: Performed By: #### B MP #### [address] [address] Lymphocytes/100 WBC (Bld) 37.5 % Normal 13.0 - 44.0 [facility] Comment on above: Performed By: #### B MP #### [address] [address] MCHC (RBC) [Mass/Vol] 34.0 g/dL Normal 32.0 - 36.0 [facility] Comment on above: Performed By: #### B MP #### [address] [address] MCV (RBC) [Entitic vol] 90 fL Normal 80 - 100 [facility] Comment on above: Performed By: #### B MP #### [address] [address] Monocytes (Bld) [#/Vol] 0.60 10*3/uL Normal 0.10 - 1.00 [facility] Comment on above: Performed By: #### B MP #### [address] [address] Monocytes/100 WBC (Bld) 6.8 % Normal 2.0 - 10.0 [facility] Comment on above: Performed By: #### B MP #### [address] [address] Neutrophils (Bld) [#/Vol] 4.40 10*3/uL Normal 1.20 - 7.70 [facility] Comment on above: Result Comment: Perc ent differential counts (%) should be interpreted in the context of the absolute cell counts (cells/L). Performed By: #### B MP #### [address] [address] Neutrophils/100 WBC (Bld) 53.5 % Normal 40.0 - 80.0 [facility] Comment on above: Performed By: #### B MP #### [address] [address] NUCLEATED RBC 0.1 /[address] [facility] Comment on above: Performed By: #### B MP #### [address] [address] Platelets (Bld) [#/Vol] 288 10*3/uL Normal 150 - 450 [facility] Comment on above: Performed By: #### B MP #### [address] [address] RBC 4.68 x10E12/L Normal 4.00 - 5.20 [facility] Comment on above: Performed By: #### B MP #### [address] [address] WBC (Bld) [#/Vol] 8.2 10*3/uL Normal 4.4 - 11.3 [facility] Comment on above: Performed By: #### B MP #### [address] [address] Carbamazepine Level, Serumon 05-23-2022 carBAMazepine [Mass/Vol] 12.1 ug/mL above high threshold 4.0 - 12.0 -Nephrolog [facility] Darryn 3 DO Work Phone: Complete Blood Count + Diffe rentialon 05-23-2022 Basophils/100 WBC (Bld) 0.4 % 0.0 - 2.0 -Nephrolog y-[facility] [place] [address] DO Work Phone: Erythrocyte distribution width (RBC) [Ratio] 13.1 % See Below [place] [address] DO Work Phone: Comment on above: Reference Range: 11. 5 - 14.5 Hematocrit (Bld) [Volume fraction] 42.2 % See Below [place] [address] DO Work Phone: Comment on above: Reference Range: 36. 0 - 46.0 Hemoglobin (Bld) [Mass/Vol] 14.3 g/dL See Below [place] [address] DO Work Phone: Comment on above: Reference Range: 12. 0 - 16.0 Lymphocytes/100 WBC (Bld) 37.5 % See Below [place] [address] DO Work Phone: Comment on above: Reference Range: 13. 0 - 44.0 MCHC (RBC) [Mass/Vol] 34.0 g/dL See Below [place] [address] DO Work Phone: Comment on above: Reference Range: 32. 0 - 36.0 MCV (RBC) [Entitic vol] 90 fL 80 - 100 [place] [address] DO Work Phone: Monocytes/100 WBC (Bld) 6.8 % 2.0 - 10.0 [place] [address] DO Work Phone: [phone] Neutrophils/100 WBC (Bld) 53.5 % See Below [place] [address] DO Work Phone: Comment on above: Reference Range: 40. 0 - 80.0 Platelets (Bld) [#/Vol] 288 10*3/uL 150 - 450 [place] [address] DO Work Phone: [phone] RBC (Bld) [#/Vol] 4.68 {x10E12/L} See Below [facility] [place] [address] DO Work Phone: Comment on above: Reference Range: 4.0 0 - 5.20 WBC (Bld) [#/Vol] 8.2 10*3/uL 4.4 - 11.3 -Nep hrolog [place] [address] DO Work Phone: Complete Blood Count + Differential 0.00 {x10E9/L} See Below [facility] [address] DO Work Phone: Comment on above: Reference Range: 0.0 0 - 0.10 Complete Blood Count + Differential 0.10 {x10E9/L} See Below [place] [address] DO Work Phone: Comment on above: Reference Range: 0.0 0 - 0.70 Complete Blood Count + Differential 0.60 {x10E9/L} See Below [place] [address] DO Work Phone: Comment on above: Reference Range: 0.1 0 - 1.00 Complete Blood Count + Differential 3.10 {x10E9/L} See Below [place] [address] DO Work Phone: Comment on above: Reference Range: 1.2 0 - 4.80 Complete Blood Count + Differential 4.40 {x10E9/L} See Below [place] [address] DO Work Phone: Comment on above: Reference Range: 1.2 0 - 7.70 Percent differential counts (%) should be interpreted in the context of the absolute cell counts (cells/L). Complete Blood Count + Differential 1.8 % 0.0 - 6.0 [place] [address] DO Work Phone: Complete Blood Count + Differential 0.1 {/100_WBC} [place] [address] DO Work Phone: HEMOGLOBIN A1Con 05-23-2022 Glucose [Mass/Vol] 223 mg/dL Normal [facility] Comment on above: Performed By: #### H BA1E #### [address] [address] HbA1c (Bld) [Mass fraction] 9.4 % Abnormal [facility] Comment on above: Result Comment: Diag nosis of Diabetes-Adults Non-Diabetic: < or = 5.6% Increased risk for developing diabetes: 5.7-6.4% Diagnostic of diabetes: > or = 6.5% . Monitoring of Diabetes Age (y) Therapeutic Goal (%) Adults: >18 <7.0 Pediatrics: 13-18 <7.5 7-12 <8.0 0- 6 7.5-8.5 [employer]. Diabetes Care 33(S1), Aug 2009. Performed By: #### H BA1E #### [address] [address] HEPATIC FUNCTION PANELon Albumin [Mass/Vol] 4.4 g/dL Normal 3.4 - 5.0 [facility] Comment on above: Performed By: #### B MP #### [address] [address] ALP [Catalytic activity/Vol] 68 U/L Normal 33 - 110 [facility] Comment on above: Performed By: #### B MP #### [address] [address] ALT [Catalytic activity/Vol] 41 U/L Normal 7 - 45 [facility] Comment on above: Result Comment: Sharmila ents treated with Sulfasalazine may generate falsely decreased results for ALT. Performed By: #### B MP #### [address] [address] AST [Catalytic activity/Vol] 32 U/L Normal 9 - 39 [facility] Comment on above: Performed By: #### B MP #### [address] [address] Bilirubin [Mass/Vol] 0.4 mg/dL Normal 0.0 - 1.2 [facility] Comment on above: Performed By: #### B MP #### [address] [address] Bilirubin.indirect [Mass/Vol] 0.1 mg/dL Normal 0.0 - 0.3 [facility] Comment on above: Performed By: #### B MP #### [address] [place] [address] Protein [Mass/Vol] 7.2 g/dL Normal 6.4 - 8.2 [facility] Comment on above: Performed By: #### B MP #### [address] [address] Hemoglobin A1Con 05-23-2022 Glucose [Mass/Vol] 223 mg/dL -Nep hrolog [facility] 3 DO Work Phone: HbA1c (Bld) [Mass fraction] 9.4 % Abnormal [facility] [address] [facility] Work Phone: Comment on above: Diagnosis of Diabete s-Adults Non-Diabetic: < or = 5.6% Increased risk for developing diabetes: 5.7-6.4% Diagnostic of diabetes: > or = 6.5%. Monitoring of Diabetes Age (y) Therapeutic Goal (%) Adults: >18 <7.0 Pediatrics: 13-18 <7.5 7-12 <8.0 0- 6 7.5-8.5 [employer]. Diabetes Care 33(S1), Aug 2009. Hepatic Function Panelon Albumin BCP dye [Mass/Vol] 4.4 g/dL 3.4 - 5.0 [facility] 3 DO Work Phone: ALP [Catalytic activity/Vol] 68 U/L 33 - 110 [facility] 3 DO Work Phone: ALT With P-5'-P [Catalytic activity/Vol] 41 U/L 7 - 45 [place] [address] DO Work Phone: Comment on above: Patients treated wit h Sulfasalazine may generate falsely decreased results for ALT. AST With P-5'-P [Catalytic activity/Vol] 32 U/L 9 - 39 -Nephrolog [facility] Darryn 3 DO Work Phone: [phone] Bilirubin [Mass/Vol] 0.4 mg/dL 0.0 - 1.2 MP-N ephrolog [facility] 3 DO Work Phone: [phone] Bilirubin.direct [Mass/Vol] 0.1 mg/dL 0.0 - 0.3 -Nephrolog [facility] 3 DO Work Phone: [phone] Protein [Mass/Vol] 7.2 g/dL 6.4 - 8.2 MP-Nep hrolog 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 Normal [facility] - Chemistry and C hemistry - challengeon 05-23-2022 Anion gap [Moles/Vol] 17 mmol/L 10 - 20 MP-Nephrolog [facility] Darryn 3 DO Work Phone: Calcium [Mass/Vol] 9.8 mg/dL 8.6 - 10.3 MP-Nep hrolog [place] [address] DO Work Phone: [phone] Chloride [Moles/Vol] 95 mmol/L below low threshold 98 - 107 -Nephrolog [place] [address] DO Work Phone: [phone] CO2 [Moles/Vol] 24 mmol/L 21 - 32 -Nephro log [place] [address] DO Work Phone: [phone] Creatinine [Mass/Vol] 0.51 mg/dL See Below [facility] [place] [address] DO Work Phone: [phone] Comment on above: Reference Range: 0.5 0 - 1.05 Glucose [Mass/Vol] 250 mg/dL above high threshold 74 - 99 [facility] [place] [address] DO Work Phone: [phone] Potassium [Moles/Vol] 4.6 mmol/L 3.5 - 5.3 [facility] [place] [address] DO Work Phone: [phone] Sodium [Moles/Vol] 131 mmol/L below low threshold 136 - 145 [facility] [place] [address] DO Work Phone: [phone] Urea nitrogen [Mass/Vol] 14 mg/dL 6 - 23 [facility] [place] [address] DO Work Phone: No Panel Informationon 05-23 >90 >90 [facility] [place] [address] DO Work Phone: Comment on above: CALCULATIONS OF NICK MATED GFR ARE PERFORMED USING THE 2020 CKD-EPI STUDY REFIT EQUATION WITHOUT THE RACE VARIABLE FOR THE IDMS-TRACEABLE CREATININE METHODS.https://jasn.asnjournals.org/content//ASN .7079087899 Tobacco Screening.on 022 Tobacco use status [facility] a) Yes [facility] [place] [address] DO Work Phone: Office Visit (Internal Medic [...] Diabetes; JAMIE = N; Verified Transmission to [employer] #[id number]; Last Updated By: SystemImagistx; 05/16/2022 1:51:21 PM Hemoglobin A1C; Status:Active; Requested for:16May2022; Perform:Lab Services - Lab To Draw (Blood Test); Due:14Aug2022;Ordered; For:Diabetes; Ordered By:James Sahu; HTN (hypertension) Stop: Losartan Potassium-HCTZ 100-25 MG Oral Tablet Rx By: James Sahu; Dispense: 90 Days ; #:90 Tablet; Refill: 3;For: HTN (hypertension); JAMIE = N; Sent To: KAYLA JUAN-12[facility] follow up for lethargy and [...] Carvedilol 3.12 (more content not included)... Normal [employer] Tobacco Screening.on 022 Fall risk assessment a) No falls within the last year [facility] Work Phone: Tobacco use status [facility] a) Yes [facility] Work Phone: Tobacco Screening. Yes [facility] Work Phone: Tobacco Screening. Adult [facility] Work Phone: BASIC METABOLIC PANELon 10-0 Anion gap [Moles/Vol] 18 mmol/L Normal - 20 [facility] Comment on above: Performed By: #### B MP #### [address] [address] Calcium [Mass/Vol] 9.7 mg/dL Normal 8.6 - 10.3 [facility] Comment on above: Performed By: #### B MP #### [address] [address] Chloride [Moles/Vol] 96 mmol/L Low 98 - 107 [facility] Comment on above: Performed By: #### B MP #### [address] [address] Creatinine [Mass/Vol] 0.59 mg/dL Normal 0.50 - 1.05 [facility] Comment on above: Performed By: #### B MP #### [address] [address] eGFR FEMALE >90 Normal >90 [facility] Comment on above: Result Comment: CALC ULATIONS OF ESTIMATED GFR ARE PERFORMED USING THE 2020 CKD-EPI STUDY REFIT EQUATION WITHOUT THE RACE VARIABLE FOR THE IDMS-TRACEABLE CREATININE METHODS. https://jasn.asnjournals.org/content//ASN.4751023 988 Performed By: #### B MP #### [address] [address] Glucose [Mass/Vol] 311 mg/dL High 74 - 99 [facility] Comment on above: Performed By: #### B MP #### [address] [address] HCO3 (Bld) [Moles/Vol] 25 mmol/L Normal 21 - 32 [facility] Comment on above: Performed By: #### B MP #### [address] [address] Potassium [Moles/Vol] 4.1 mmol/L Normal 3.5 - 5.3 [facility] Comment on above: Performed By: #### B MP #### [address] [address] Sodium [Moles/Vol] 135 mmol/L Low 136 - 145 [facility] Comment on above: Performed By: #### B MP #### [address] [place] [address] Urea nitrogen [Mass/Vol] 10 mg/dL Normal 6 - [facility] Comment on above: Performed By: #### B MP #### [address] [place] [address] Laboratory - Chemistry and C hemistry - challengeon 05-14-2022 Anion gap [Moles/Vol] 18 mmol/L 10 - [address] [facility] 3 DO Work Phone: [phone] Calcium [Mass/Vol] 9.7 mg/dL 8.6 - 10.3 MP-Nep hrolog [facility] 3 DO Work Phone: [phone] Chloride [Moles/Vol] 96 mmol/L below low threshold 98 - 107 -Nephrolog [place] [address] DO Work Phone: [phone] CO2 [Moles/Vol] 25 mmol/L 21 - 32 MP-Ne[address]ro log [facility] 3 DO Work Phone: [phone] Creatinine [Mass/Vol] 0.59 mg/dL See Below -Nephrolog [place] [address] DO Work Phone: Comment on above: Reference Range: 0.5 0 - 1.05 Glucose [Mass/Vol] 311 mg/dL above high threshold 74 - [address] [facility] 3 DO Work Phone: [phone] Potassium [Moles/Vol] 4.1 mmol/L 3.5 - 5.3 MP-Nephrolog [facility] 3 DO Work Phone: [phone] Sodium [Moles/Vol] 135 mmol/L below low threshold 136 - 145 -Nephrolog [facility] 3 DO Work Phone: Urea nitrogen [Mass/Vol] 10 mg/dL - MP-Nephrolog [facility] Darryn 3 DO Work Phone: No Panel Informationon 05-14 >90 >90 MP-Neph[facility] 3 DO Work Phone: Comment on above: CALCULATIONS OF NICK MATED GFR ARE PERFORMED USING THE 2020 CKD-EPI STUDY REFIT EQUATION WITHOUT THE RACE VARIABLE FOR THE IDMS-TRACEABLE CREATININE METHODS.https://jasn.asnjournals.org/content/early//ASN .9874507322 Clinical Event Note-ED Post Discharge Result Follow Up: Atteon 05-01-2022 Clinical Event Note-ED Post Discharge Result Follow Up: Atte Clinical Event: Clinical Event Note: TopicED Post Discharge Result Follow Up: Attempt 1, Complete: Urine Culture: E. coli Details Pharmacist Name: Lay Linares, Date: 05/01/22, Time: 12:14PM, Number Called: [phone], Spoke With: PatientReinier Patient contacted in regards [...] Post-Discharge Culture Follow Up Team, please contact [phone]. . Lay Linares PharmD. PGY1 Resident [facility] Electronic Signatures: Cindy Metcalf (PharmD) (Signed 02-May-2022 08:42) Co-Signer: Clinical Event Note Lay Linares ([facility]) (Signed 01-May-2022 12:16) Authored: Clinical Event Note Last Updated: 02-May-2022 08:42 by Cindy Metcalf (PharmD) Normal [facility] BASIC METABOLIC PANELon 09-2 Anion gap [Moles/Vol] 13 mmol/L Normal 10 - 20 [facility] Comment on above: Performed By: #### B MP ####[address] [address] Calcium [Mass/Vol] 8.8 mg/dL Normal 8.6 - 10.3 [facility] Comment on above: Performed By: #### B MP ####[address] [address] Chloride [Moles/Vol] 100 mmol/L Normal 98 - 107 [facility] Comment on above: Performed By: #### B MP ####[address] [address] Creatinine [Mass/Vol] 0.42 mg/dL Low 0.50 - 1.05 [facility] Comment on above: Performed By: #### B MP ####[address] [address] eGFR FEMALE >90 Normal >90 [facility] Comment on above: Result Comment: CALC ULATIONS OF ESTIMATED GFR ARE PERFORMED USING THE 2020 CKD-EPI STUDY REFIT EQUATION WITHOUT THE RACE VARIABLE FOR THE IDMS-TRACEABLE CREATININE METHODS. https://jasn.asnjournals.org/content/early/ASN.1984046 988 Performed By: #### B MP ####[address] [address] Glucose [Mass/Vol] 244 mg/dL High 74 - 99 [facility] Comment on above: Performed By: #### B MP ####[address] [address] HCO3 (Bld) [Moles/Vol] 25 mmol/L Normal 21 - 32 [facility] Comment on above: Performed By: #### B MP ####[address] [address] Potassium [Moles/Vol] 3.8 mmol/L Normal 3.5 - 5.3 [facility] Comment on above: Performed By: #### B MP ####[address] [place] [address] Sodium [Moles/Vol] 134 mmol/L Low 136 - 145 [facility] Comment on above: Performed By: #### B MP ####[address] [place] [address] Urea nitrogen [Mass/Vol] 11 mg/dL Normal 6 - 23 [facility] Comment on above: Performed By: #### B MP ####[address] [address] Clinical Note - Pharmacy v2- Discharge Med Counselingon 04-30-2022 Clinical Note - Pharmacy v2-Discharge Med Counseling Clinical Note - Pharmacy v2: Discharge Meds: Document TopicDischarge Med Counseling Time [id number] minutes Prescription Marble Setter Helper Medications Home Medications Review Status for Reconciliation: [...] hours Medications DeliveredMacrobid Medications Delivered Topatient Delivery Date/[id number] 11:10 Medications ReviewedMacrobid Education TopicADR counseling; dosage, frequency, storage; medication indication; medication interactions; missed dose explanation; refills Learnerpatient Barriers to Learningnone Methodverbal Outcome Evaluation2=meets goals/outcomes Additional NotesDiscussed discharge medications with patient. Patient was given home medication summary and [facility] patient education handout for Macrobid. Reviewed when [...] was agreeable to having Macrobid filled @ [facility] and was subsequently brought to the bedside. Patient verbalized understanding of medications. Allergy: Allergies Summary Allergy Allergen: sulfa drugs Type: Drug Category Reaction: Unknown Electronic Signatures: Franko Gonzalez (PharmD) (Signed 30-Apr-2022 11:23) Authored: Discharge Meds, Allergy Last Updated: 30-Apr-2022 11:23 by Franko Gonzalez (PharmD) [facility] Discharge [id number] 022 Discharge Profile2 Discharge Orders: Anticipated Discharge Date: Anticipated Discharge [id number] Anticipated Discharge Time09:27 Problem List: Additional Dx: UTI (urinary tract infection): Catalog Name: Urinary tract infection, site not specified Hyponatremia: Catalog Name: Hypo-osmolality and hyponatremia DNAR: Code Status at Discharge: Full Code Activity: activity as tolerated. May shower. May return to school/work Instructions: May drive. Diet: Dietresume normal diet, diabetic/carbohydrate counted Diabetic/Carbohydrate Rywnktd36/gram Carb/meal, 30gram Carb snack (2) Diet Consistency/Textureregula [...] Review of Medication Reconciliation and Orders Completedby MANGLE ROLL OPERATOR Reviewing ProviderSLUCÍA Ross at 30-Apr-2022 09:47:04 Appointments: Follow-Up Appointment 01: Physician/Dept/ServiceDr. Sahu Reason for Referralpost hospitalization Call to Schedule in2 weeks [address] [place] [address] Phone [phone] CommentsPlease call to schedule within 2 weeks of discharge Follow-Up Appointment 02: Physician/Dept/ServiceDr. Cornelius Reason for Referralhypnatremia Call to Schedule in2 weeks [address] [place] [address] Phone [phone] CommentsPlease call to schedule within 2 weeks of discharge Follow-Up Appointment 03: Physician/Dept/ServiceDr. Christian Reason for ReferralDM foot care Call to Schedule in2 [id number] [facility] Chloe OdellBob [facility] [address] [place] [address] Phone [phone] CommentsPlease call to schedule within 2 weeks of discharge Follow-Up Appointment 04: Physician/Dept/ServiceDr. Jordan Reason for ReferralDM, Endocrinology Call to Schedule in2 weeks [id number] [facility], [address]nd Floor [place] [id number] Phone [phone] CommentsPlease call to schedule within 2 weeks of discharge Electronic Signatures: Katerina Akbar (MANGLE ROLL OPERATOR-TARGET WORKER) (Signed 30-Apr-2022 09:47) Authored: Discharge Orders, Provider FINAL REVIEW of Orders, Appointments, Gold Form - Cold Working Inspector Summary Vane Moran (PCNA/Audiology Technician) (Signed 30-Apr-2022 10:30) Authored: Discharge Orders, Appointments Last Updated: 30-Apr-2022 10:30 by Vane Moran (PCNA/Barrett) Normal [facility] GLUCOSE-POCTon 04-30-2022 Glucose [Mass/Vol] 249 mg/dL High 74 - 99 [facility] Comment on above: Performed By: #### G MATTHEW #### [facility] [id number] Laboratory - Chemistry and C hemistry - challengeon 04-30-2022 Glucose [Mass/Vol] 249 mg/dL above high threshold 74 - 99 MP-Nephrolog [place] [address] DO Work Phone: [phone] Anion gap [Moles/Vol] 13 mmol/L 10 - 20 MP-Nephrolog [place] [address] DO Work Phone: Calcium [Mass/Vol] 8.8 mg/dL 8.6 - 10.3 MP-Nep hrolog [place] [address] DO Work Phone: Chloride [Moles/Vol] 100 mmol/L 98 - 107 MP-N ephrolog [place] [address] DO Work Phone: CO2 [Moles/Vol] 25 mmol/L 21 - 32 MP-Nephro log [place] [address] DO Work Phone: Creatinine [Mass/Vol] 0.42 mg/dL below low threshold See Below -Nephrolog [place] [address] DO Work Phone: Comment on above: Reference Range: 0.5 0 - 1.05 Glucose [Mass/Vol] 244 mg/dL above high threshold 74 - 99 [facility] [place] [address] DO Work Phone: Potassium [Moles/Vol] 3.8 mmol/L 3.5 - 5.3 [facility] [place] [address] DO Work Phone: [phone] Sodium [Moles/Vol] 134 mmol/L below low threshold 136 - 145 [facility] [address] DO Work Phone: Urea nitrogen [Mass/Vol] 11 mg/dL 6 - 23 [facility] [address] DO Work Phone: No Panel Informationon 04-30 >90 >90 [place] [address] DO Work Phone: Comment on above: CALCULATIONS OF NICK MATED GFR ARE PERFORMED USING THE 2020 CKD-EPI STUDY REFIT EQUATION WITHOUT THE RACE VARIABLE FOR THE IDMS-TRACEABLE CREATININE METHODS.https://jasn.asnjournals.org/content/early//ASN .5040745315 Nutrition Therapy-Assessment on 04-30-2022 Nutrition Therapy-Assessment Assessment Subjective/Objective: Note Type: Assessment Note Authored by: Registered Dietitian Logging Tractor Operator Swamp Pager Number: [phone] Nutrition Note: The patient is a 52 year old Female admitted to the medical service for UTI and hyponatremia. MST score 3 - weight loss and decreased po PMHx: htn, bipolar and DM, Tia, thyroid goiter, VADIM. Objective Information: T PRBPMAPSpO2 Value35.08847803/8596% Date/Time04/30 7: 7: 7: 7: 7:14 Range(35C - 36C ) (67 - 82 ) (16 - 18 ) (133 - 163 )/ (77 - 90 ) (94% - 99% ) Pain reported at 04/30 7:42: 0 = None ---- Intake and Output ----- Mn/Dy/[facility]Int[facility] Apr 30, 2022 6:00 [id number] Apr 29, 2022 10:00 [id number] Apr 29, 2022 2:00 [id number] The Intake and Output Totals for the last 24 hours are: IntakeOutcarlsbad medical centerNet [id number] Height/Weight: Height in cm: 167.5 centimeter(s) Weight [...] 13-18 <7.5 7-12 <8.0 0- 6 7.5-8.5 [employer]. Diabetes Care 33(S1), Aug 2009. Estimated Average [id number] Current Active Medications/PN: Ascorbic Acid, Tablet (VITAMIN [...] ml/day 60gram Carb/meal, 30gram Carb evening snack (7042-0551 calories), 28-Apr-2022 Food/Nutrition Related History: Energy Intake: [...] arm, shoulder and neck) Estimated Needs: kcals/day: 6490-1515 Predictive Equation Used: [facility] [place] protein/day: 78-98 (more content not included)... [facility] Order Reconciliationon 04-30 Order Reconciliation Page 1 Discharge Reconciliation Document Reconciliation Type: Discharge requested on behalf of Katerina Akbar (Advanced Practice Nurse) done by Katerina Akbar (MANGLE ROLL OPERATOR-[facility]) Discharge - Partial Reconciliation: 30-Apr-2022 09:27 by: Katerina Akbar (MANGLE ROLL OPERATOR-[facility]) Discharge - Reconciliation: 30-Apr-2022 09:39 by: Katerina Akbar (MANGLE ROLL OPERATOR-[facility]) Home Medications EnteredHOME MEDICATIONS AT DISCHARGE DateReconciliation [...] required A (more content not included)... Normal [facility] CBC AND DIFFERENTIALon 04-29 Basophils (Bld) [#/Vol] 0.00 10*3/uL Normal 0.00 - 0.10 [facility] Comment on above: Performed By: #### C BCDF ####[address] [address] Basophils/100 WBC (Bld) 0.3 % Normal 0.0 - 2.0 [facility] Comment on above: Performed By: #### C BCDF ####[address] [address] Eosinophils (Bld) [#/Vol] 0.10 10*3/uL Normal 0.00 - 0.70 [facility] Comment on above: Performed By: #### C BCDF ####[address] [address] Eosinophils/100 WBC (Bld) 1.9 % Normal 0.0 - 6.0 [facility] Comment on above: Performed By: #### C BCDF ####[address] [address] Erythrocyte distribution width (RBC) [Ratio] 13.3 % Normal 11.5 - 14.5 [facility] Comment on above: Performed By: #### C BCDF ####[address] [address] Hematocrit (Bld) [Volume fraction] 38.9 % Normal 36.0 - 46.0 [facility] Comment on above: Performed By: #### C BCDF ####[address] [address] Hemoglobin (Bld) [Mass/Vol] 13.4 g/dL Normal 12.0 - 16.0 [facility] Comment on above: Performed By: #### C BCDF ####[address] [address] Lymphocytes (Bld) [#/Vol] 2.00 10*3/uL Normal 1.20 - 4.80 [facility] Comment on above: Performed By: #### C BCDF ####[address] [address] Lymphocytes/100 WBC (Bld) 43.9 % Normal 13.0 - 44.0 [facility] Comment on above: Performed By: #### C BCDF ####[address] [address] MCHC (RBC) [Mass/Vol] 34.5 g/dL Normal 32.0 - 36.0 [facility] Comment on above: Performed By: #### C BCDF ####[address] [address] MCV (RBC) [Entitic vol] 89 fL Normal 80 - 100 [facility] Comment on above: Performed By: #### C BCDF ####[address] [address] Monocytes (Bld) [#/Vol] 0.40 10*3/uL Normal 0.10 - 1.00 [facility] Comment on above: Performed By: #### C BCDF ####[address] [address] Monocytes/100 WBC (Bld) 9.8 % Normal 2.0 - 10.0 [facility] Comment on above: Performed By: #### C BCDF ####[address] [address] Neutrophils (Bld) [#/Vol] 2.00 10*3/uL Normal 1.20 - 7.70 [facility] Comment on above: Result Comment: Perc ent differential counts (%) should be interpreted in the context of the absolute cell counts (cells/L). Performed By: #### C BCDF ####[address] [address] Neutrophils/100 WBC (Bld) 44.1 % Normal 40.0 - 80.0 [facility] Comment on above: Performed By: #### C BCDF ####[address] [id number] NUCLEATED RBC 0.1 /100 WBC Normal [facility] Comment on above: Performed By: #### C BCDF ####[address] [address] Platelets (Bld) [#/Vol] 225 10*3/uL Normal 150 - 450 [facility] Comment on above: Performed By: #### C BCDF ####[address] [address] RBC 4.34 x10E12/L Normal 4.00 - 5.20 [facility] Comment on above: Performed By: #### C BCDF ####[address] [address] WBC (Bld) [#/Vol] 4.5 10*3/uL Normal 4.4 - 11.3 [facility] Comment on above: Performed By: #### C BCDF ####[place] [address] COMPREHENSIVE PANELon 04-29- 2021 Albumin [Mass/Vol] 3.7 g/dL Normal 3.4 - 5.0 [facility] Comment on above: Performed By: #### C MP ####[address] [id number] ALP [Catalytic activity/Vol] 58 U/L Normal 33 - 110 [facility] Comment on above: Performed By: #### C MP ####[place] [address] ALT [Catalytic activity/Vol] 58 U/L High 7 - 45 [facility] Comment on above: Result Comment: Sharmila ents treated with Sulfasalazine may generate falsely decreased results for ALT. Performed By: #### C MP ####[place] [address] Anion gap [Moles/Vol] 14 mmol/L Normal 10 - 20 [facility] Comment on above: Performed By: #### C MP ####[address] [id number] AST [Catalytic activity/Vol] 60 U/L High 9 - 39 [facility] Comment on above: Performed By: #### C MP ####[address] [address] Bilirubin [Mass/Vol] 0.4 mg/dL Normal 0.0 - 1.2 [facility] Comment on above: Performed By: #### C MP ####[address] [address] Calcium [Mass/Vol] 8.5 mg/dL Low 8.6 - 10.3 [facility] Comment on above: Performed By: #### C MP ####[address] [address] Chloride [Moles/Vol] 97 mmol/L Low 98 - 107 [facility] Comment on above: Performed By: #### C MP ####[address] [address] Creatinine [Mass/Vol] 0.40 mg/dL Low 0.50 - 1.05 [facility] Comment on above: Performed By: #### C MP ####[address] [address] eGFR FEMALE >90 Normal >90 [facility] Comment on above: Result Comment: CALC ULATIONS OF ESTIMATED GFR ARE PERFORMED USING THE 2020 CKD-EPI STUDY REFIT EQUATION WITHOUT THE RACE VARIABLE FOR THE IDMS-TRACEABLE CREATININE METHODS. https://jasn.asnjournals.org/content//ASN.9667997 988 Performed By: #### C MP ####[address] [address] Glucose [Mass/Vol] 259 mg/dL High 74 - 99 [facility] Comment on above: Performed By: #### C MP ####[address] [address] HCO3 (Bld) [Moles/Vol] 25 mmol/L Normal 21 - 32 [facility] Comment on above: Performed By: #### C MP ####[address] [address] Potassium [Moles/Vol] 3.6 mmol/L Normal 3.5 - 5.3 [facility] Comment on above: Performed By: #### C MP ####[address] [place] [address] Protein [Mass/Vol] 6.4 g/dL Normal 6.4 - 8.2 [facility] Comment on above: Performed By: #### C MP ####[address] [address] Sodium [Moles/Vol] 132 mmol/L Low 136 - 145 [facility] Comment on above: Performed By: #### C MP ####[address] [address] Urea nitrogen [Mass/Vol] 9 mg/dL Normal 6 - 23 [facility] Comment on above: Performed By: #### C MP ####[address] [address] Complete Blood Count + Diffe ronaldtialon 04-29-2022 Basophils/100 WBC (Bld) 0.3 % 0.0 - 2.0 [facility] [facility]Neph[facility] [address] DO Work Phone: [phone] Erythrocyte distribution width (RBC) [Ratio] 13.3 % See Below [place] [address] DO Work Phone: [phone] Comment on above: Reference Range: 11. 5 - 14.5 Hematocrit (Bld) [Volume fraction] 38.9 % See Below [place] [address] DO Work Phone: [phone] Comment on above: Reference Range: 36. 0 - 46.0 Hemoglobin (Bld) [Mass/Vol] 13.4 g/dL See Below [place] [address] DO Work Phone: [phone] Comment on above: Reference Range: 12. 0 - 16.0 Lymphocytes/100 WBC (Bld) 43.9 % See Below [place] [address] DO Work Phone: Comment on above: Reference Range: 13. 0 - 44.0 MCHC (RBC) [Mass/Vol] 34.5 g/dL See Below [facility] [place] [address] DO Work Phone: [phone] Comment on above: Reference Range: 32. 0 - 36.0 MCV (RBC) [Entitic vol] 89 fL 80 - 100 [facility] [place] [address] DO Work Phone: [phone] Monocytes/100 WBC (Bld) 9.8 % 2.0 - 10.0 -Nephrolog [place] [address] DO Work Phone: [phone] Neutrophils/100 WBC (Bld) 44.1 % See Below [facility] [place] [address] DO Work Phone: [phone] Comment on above: Reference Range: 40. 0 - 80.0 Platelets (Bld) [#/Vol] 225 10*3/uL 150 - 450 [facility] [place] [address] DO Work Phone: [phone] RBC (Bld) [#/Vol] 4.34 {x10E12/L} See Below [facility] [place] [address] DO Work Phone: [phone] Comment on above: Reference Range: 4.0 0 - 5.20 WBC (Bld) [#/Vol] 4.5 10*3/uL 4.4 - 11.3 MP-Nep hrolog [place] [address] DO Work Phone: [phone] Complete Blood Count + Differential 0.00 {x10E9/L} See Below [facility] [place] [address] DO Work Phone: [phone] Comment on above: Reference Range: 0.0 0 - 0.10 Complete Blood Count + Differential 0.10 {x10E9/L} See Below [facility] [place] [address] DO Work Phone: Comment on above: Reference Range: 0.0 0 - 0.70 Complete Blood Count + Differential 0.40 {x10E9/L} See Below [facility] [place] [address] DO Work Phone: Comment on above: Reference Range: 0.1 0 - 1.00 Complete Blood Count + Differential 2.00 {x10E9/L} See Below [facility]ENTERNephKatherine [facility] [address] DO Work Phone: Comment on above: Reference Range: 1.2 0 - 4.80 Reference Range: 1.2 0 - 7.70 Percent differential counts (%) should be interpreted in the context of the absolute cell counts (cells/L). Complete Blood Count + Differential 1.9 % 0.0 - 6.0 [place] [address] DO Work Phone: Complete Blood Count + Differential 0.1 {/100_WBC} [place] [address] DO Work Phone: Consult-Nephrologyon [phone] Consult-Nephrology Service: [...] drugs: Unknown Objective: Objective Information: T PRBPMAPSpO2 [id number]% Date/Time04/29 7: 7: 7: 7: 13: 7:32 [...] medications Hyp (more content not included)... Normal [facility] Daily Progress Note-General Internal Medicineon 04-29-2022 Daily [...] time. Objective Data: Objective Information: T PRBPMAPSpO2 [id number]% Date/Time04/29 7: 7: 7: 7: 13: 7:32 [...] 2 consti (more content not included)... Normal [facility] GLUCOSE-[facility] 04-29-2022 Glucose [Mass/Vol] 243 mg/dL High 74 - 99 [facility] Comment on above: Performed By: #### G MATTHEW ####[place] [address] [place] [address] Glucose [Mass/Vol] 228 mg/dL High 74 - 99 [facility] Comment on above: Performed By: #### B MP #### [facility] [address] [place] [address] Glucose [Mass/Vol] 264 mg/dL High 74 - 99 [facility] Comment on above: Performed By: #### B MP #### [place] [address] [place] [address] Glucose [Mass/Vol] 291 mg/dL High 74 - 99 [facility] Comment on above: Performed By: #### B MP #### [place] [address] [place] [address] Laboratory - Chemistry and C hemistry - challengeon 04-29-2022 Glucose [Mass/Vol] 243 mg/dL above high threshold 74 - 99 [facility]ENTERNephK[facility] [address] DO Work Phone: Glucose [Mass/Vol] 228 mg/dL above high threshold 74 - 99 [facility]ENTERNephK[facility] [address] DO Work Phone: Glucose [Mass/Vol] 264 mg/dL above high threshold 74 - 99 [facility] Work Phone: Glucose [Mass/Vol] 291 mg/dL above high threshold 74 - 99 [facility]ENTERNephK[facility] [address] DO Work Phone: Albumin BCP dye [Mass/Vol] 3.7 g/dL 3.4 - 5.0 [facility] DO Work Phone: ALP [Catalytic activity/Vol] 58 U/L 33 - 110 [facility]Ne[facility] DO Work Phone: ALT With P-5'-P [Catalytic activity/Vol] 58 U/L above high threshold 7 - 45 -Nephrolog [place] [address] DO Work Phone: [phone] Comment on above: Patients treated wit h Sulfasalazine may generate falsely decreased results for ALT. Anion gap [Moles/Vol] 14 mmol/L 10 - 20 -Nephrolog [place] [address] DO Work Phone: [phone] AST With P-5'-P [Catalytic activity/Vol] 60 U/L above high threshold 9 - 39 -Nephrolog [place] [address] DO Work Phone: [phone] Bilirubin [Mass/Vol] 0.4 mg/dL 0.0 - 1.2 -N ephrolog [place] [address] DO Work Phone: [phone] Calcium [Mass/Vol] 8.5 mg/dL below low threshold 8.6 - 10.3 -Nephrolog [place] [address] DO Work Phone: [phone] Chloride [Moles/Vol] 97 mmol/L below low threshold 98 - 107 -Nephrolog [place] [address] DO Work Phone: [phone] CO2 [Moles/Vol] 25 mmol/L 21 - 32 -Nephro log [place] [address] DO Work Phone: [phone] Creatinine [Mass/Vol] 0.40 mg/dL below low threshold See Below -Nephrolog [place] [address] DO Work Phone: [phone] Comment on above: Reference Range: 0.5 0 - 1.05 Glucose [Mass/Vol] 259 mg/dL above high threshold 74 - 99 -Nephrolog [place] [address] DO Work Phone: [phone] Potassium [Moles/Vol] 3.6 mmol/L 3.5 - 5.3 -Nephrolog [place] [address] DO Work Phone: [phone] Protein [Mass/Vol] 6.4 g/dL 6.4 - 8.2 -Nep hrolog [place] [address] DO Work Phone: [phone] Sodium [Moles/Vol] 132 mmol/L below low threshold 136 - 145 [facility] [place] [address] DO Work Phone: [phone] Urea nitrogen [Mass/Vol] 9 mg/dL 6 - 23 [facility] [place] [address] DO Work Phone: [phone] Creatinine (U) [Mass/Vol] 26.0 mg/dL See Below [facility] [place] [address] DO Work Phone: [phone] Comment on above: Reference Range: 20. 0 - 320.0 Sodium (U) [Moles/Vol] 32 mmol/L See Below [place] [address] DO Work Phone: [phone] Comment on above: Reference Range: Not Established Sodium/Creatinine (U) [Ratio] 123 {mmol/g_Creat} See Below [facility]ENTERNephKatherine [facility] [address] DO Work Phone: [phone] Comment on above: Reference Range: Not Established No Panel Informationon 04-29 >90 >90 [place] [address] DO Work Phone: Comment on above: CALCULATIONS OF NICK MATED GFR ARE PERFORMED USING THE 2020 CKD-EPI STUDY REFIT EQUATION WITHOUT THE RACE VARIABLE FOR THE IDMS-TRACEABLE CREATININE METHODS.https://jasn.asnjournals.org/content/early//ASN .5159582935 OSMOLALITY,URINE SPOTon 04-11 0-2021 OSMOLALITY,URINE SPOT 168 mOsm/kg Low 200 - 1200 [facility] Comment on above: Performed By: #### O SMS ####[id number] [place] [address] Osmolality, Urine Spoton Osmolality (U) [Osmolality] 168 mosm/kg below low threshold 200 - 1200 [facility]ENTERNephKatherine [facility]ille [address] DO Work Phone: SODIUM, URINE SPOTon 022 CREATININE,URINE 26.0 mg/dL Normal 20.0 - 320.0 [facility] Comment on above: Performed By: #### S ODS2 #### [address] [address] Sodium (U) [Moles/Vol] 32 mmol/L Normal Not Established [facility] Comment on above: Performed By: #### S ODS2 #### [address] [address] SODIUM/CREAT RATIO 123 mmol/g Creat Normal Not Established [facility] Comment on above: Performed By: #### S ODS2 #### [address] [address] TRIIODOTHYRONINEon TRIIODOTHYRONINE 91 ng/dL Normal 60 - 200 [facility] Comment on above: Performed By: #### B MP #### [address] [address] Triiodothyronine, Level (T3) on 04-29-2022 T3 [Mass/Vol] 91 ng/dL 60 - 200 [facility] 3 DO Work Phone: Admission Risk Screen [...] AlertFor Ebola-like Symptoms: Isolate Patient and Notify Provider/Bird Keeper For Contact: Notify Provider/Bird Keeper Advance Directive: Advance Directive/DNRno Advance Directive Information [...] instruction; written material Cultural Considerationsnone Developmental Considerationsnone Mosque Considerationsnone Learning Assessment (Other Learner): Other learner availableno Depression Screen: During the past month, have you often been bothered by feeling down, depressed or hopelessno During the past month, have you often had little interest or pleasure in doing thingsno Have you had any thoughts of harming anyone elseno (1) [place] Suicide: Risk Screen Not Applicable/Able to Answerable to be screened In the Past Month: Have you wished you were or could go to sleep and not wake upno(1) In the Past Month: Have you had any actual thoughts of killing yourself no(1) Lifetime: Have you ever done, started to do, or prepared to do anything to end your lifeno [place] Suicide Risknegative Adult Nutrition Screen: Have you [...] Spiritual Screen: Are there any cultural, spiritual, oriental orthodox practices/values/needs that are important for us to knowno CAGE: Is this an in (more content not included)... Normal [facility] BASIC METABOLIC PANELon 04-10 Anion gap [Moles/Vol] 12 mmol/L Normal 10 - 20 [facility] Comment on above: Performed By: #### B MP #### [address] [address] Calcium [Mass/Vol] 7.8 mg/dL Low 8.6 - 10.3 [facility] Comment on above: Performed By: #### B MP #### [address] [address] Chloride [Moles/Vol] 94 mmol/L Low 98 - 107 [facility] Comment on above: Performed By: #### B MP #### [address] [address] Creatinine [Mass/Vol] 0.37 mg/dL Low 0.50 - 1.05 [facility] Comment on above: Performed By: #### B MP #### [address] [address] eGFR FEMALE >90 Normal >90 [facility] Comment on above: Result Comment: CALC ULATIONS OF ESTIMATED GFR ARE PERFORMED USING THE 2020 CKD-EPI STUDY REFIT EQUATION WITHOUT THE RACE VARIABLE FOR THE IDMS-TRACEABLE CREATININE METHODS. https://jasn.asnjournals.org/content/early/ASN.8516285 988 Performed By: #### B MP #### [address] [address] Glucose [Mass/Vol] 257 mg/dL High 74 - 99 [facility] Comment on above: Performed By: #### B MP #### [address] [address] HCO3 (Bld) [Moles/Vol] 23 mmol/L Normal 21 - 32 [facility] Comment on above: Performed By: #### B MP #### [address] [address] Potassium [Moles/Vol] 3.6 mmol/L Normal 3.5 - 5.3 [facility] Comment on above: Performed By: #### B MP #### [address] [address] Sodium [Moles/Vol] 125 mmol/L Low 136 - 145 [facility] Comment on above: Result Comment: veri fied with earlier result Performed By: #### B MP #### [address] [address] Urea nitrogen [Mass/Vol] 9 mg/dL Normal 6 - 23 [facility] Comment on above: Performed By: #### B MP #### [address] [address] Anion gap [Moles/Vol] 13 mmol/L Normal 10 - 20 [facility] Comment on above: Performed By: #### B MP #### [address] [address] Sodium [Moles/Vol] 124 mmol/L Low 136 - 145 [facility] Comment on above: Result Comment: repe ated and verified Performed By: #### B MP #### [address] [address] Calcium [Mass/Vol] 8.4 mg/dL Low 8.6 - 10.3 [facility] Comment on above: Performed By: #### B MP #### [address] [address] Chloride [Moles/Vol] 90 mmol/L Low 98 - 107 [facility] Comment on above: Performed By: #### B MP #### [address] [address] Creatinine [Mass/Vol] 0.47 mg/dL Low 0.50 - 1.05 [facility] Comment on above: Performed By: #### B MP #### [address] [address] eGFR FEMALE >90 Normal >90 [facility] Comment on above: Result Comment: CALC ULATIONS OF ESTIMATED GFR ARE PERFORMED USING THE 2020 CKD-EPI STUDY REFIT EQUATION WITHOUT THE RACE VARIABLE FOR THE IDMS-TRACEABLE CREATININE METHODS. https://jasn.asnjournals.org/content//ASN.2475421 988 Performed By: #### B MP #### [address] [address] Glucose [Mass/Vol] 284 mg/dL High 74 - 99 [facility] Comment on above: Performed By: #### B MP #### [address] [address] HCO3 (Bld) [Moles/Vol] 25 mmol/L Normal 21 - 32 [facility] Comment on above: Performed By: #### B MP #### [address] [address] Potassium [Moles/Vol] 3.7 mmol/L Normal 3.5 - 5.3 [facility] Comment on above: Performed By: #### B MP #### [address] [address] Urea nitrogen [Mass/Vol] 10 mg/dL Normal 6 - 23 [facility] Comment on above: Performed By: #### B MP #### [address] [address] CBC AND DIFFERENTIALon 04-28 Basophils (Bld) [#/Vol] 0.00 10*3/uL Normal 0.00 - 0.10 [facility] Comment on above: Performed By: #### C BCDF ####[address] [address] Basophils/100 WBC (Bld) 0.3 % Normal 0.0 - 2.0 [facility] Comment on above: Performed By: #### C BCDF ####[address] [address] Eosinophils (Bld) [#/Vol] 0.10 10*3/uL Normal 0.00 - 0.70 [facility] Comment on above: Performed By: #### C BCDF ####[address] [address] Eosinophils/100 WBC (Bld) 1.7 % Normal 0.0 - 6.0 [facility] Comment on above: Performed By: #### C BCDF ####[address] [address] Erythrocyte distribution width (RBC) [Ratio] 13.0 % Normal 11.5 - 14.5 [facility] Comment on above: Performed By: #### C BCDF ####[address] [address] Hematocrit (Bld) [Volume fraction] 40.9 % Normal 36.0 - 46.0 [facility] Comment on above: Performed By: #### C BCDF ####[address] [address] Hemoglobin (Bld) [Mass/Vol] 14.0 g/dL Normal 12.0 - 16.0 [facility] Comment on above: Performed By: #### C BCDF ####[address] [address] Lymphocytes (Bld) [#/Vol] 1.20 10*3/uL Normal 1.20 - 4.80 [facility] Comment on above: Performed By: #### C BCDF ####[address] [address] Lymphocytes/100 WBC (Bld) 25.3 % Normal 13.0 - 44.0 [facility] Comment on above: Performed By: #### C BCDF ####[address] [address] MCHC (RBC) [Mass/Vol] 34.2 g/dL Normal 32.0 - 36.0 [facility] Comment on above: Performed By: #### C BCDF ####[address] [address] MCV (RBC) [Entitic vol] 88 fL Normal 80 - 100 [facility] Comment on above: Performed By: #### C BCDF ####[address] [address] Monocytes (Bld) [#/Vol] 0.40 10*3/uL Normal 0.10 - 1.00 [facility] Comment on above: Performed By: #### C BCDF ####[address] [address] Monocytes/100 WBC (Bld) 8.2 % Normal 2.0 - 10.0 [facility] Comment on above: Performed By: #### C BCDF ####[address] [address] Neutrophils (Bld) [#/Vol] 3.00 10*3/uL Normal 1.20 - 7.70 [facility] Comment on above: Result Comment: Perc ent differential counts (%) should be interpreted in the context of the absolute cell counts (cells/L). Performed By: #### C BCDF ####[address] [address] Neutrophils/100 WBC (Bld) 64.5 % Normal 40.0 - 80.0 [facility] Comment on above: Performed By: #### C BCDF ####[address] [address] Platelets (Bld) [#/Vol] 213 10*3/uL Normal 150 - 450 [facility] Comment on above: Performed By: #### C BCDF ####[address] [address] RBC 4.63 x10E12/L Normal 4.00 - 5.20 [facility] Comment on above: Performed By: #### C BCDF ####[address] [address] WBC (Bld) [#/Vol] 4.6 10*3/uL Normal 4.4 - 11.3 [facility] Comment on above: Performed By: #### C BCDF ####[address] [address] CHEST 1 VIEWon 04-28-2022 CHEST 1 VIEW Patient Name: REINIER MENDOZA STUDY: CHEST 1 VIEW; 04/28/2022 10:37 am INDICATION: chills . COMPARISON: None. ACCESSION NUMBER(S): [id number] ORDERING CLINICIAN: ARNOLDO BILLS TECHNIQUE: FINDINGS: Heart is normal in size. There is no consolidation or pleural fluid. There is mild tortuosity of the aorta. The bones are unremarkable. COMPARISON OF FINDING: IMPRESSION: No acute cardiopulmonary disease. Electronically signed by: MARKUS CORNELIUS MD Normal [facility] CORONAVIRUS 2019 BY PCRon SARS-CoV-2 (COVID-19) RNA KATHERIN+probe Ql (Unsp spec) Not detected Normal Not Detected [facility] Comment on above: Result Comment: . This test has received FDA Emergency Use Authorization (EUA) and has been verified by [facility]. This test is only authorized for the duration of time that circumstances exist to justify the authorization of the emergency use of in vitro diagnostic tests for the detection of SARS-CoV-2 virus and/or diagnosis of COVID-19 infection under section 564(b)(1) of the Act, 21 U.S.C. 360bbb-3(b)(1), unless the authorization is terminated or revoked sooner. [facility] is certified under CLIA-88 as qualified to perform high complexity testing. Testing is performed in the [facility] laboratory located at [address] [place] [address]. SARS-CoV-2/Flu/RSV Multiplex Test: Fact sheet for providers: https://www.fda.gov/media/744387/download Fact sheet for patients: https://www.fda.gov/media/861059/download Performed By: #### C OV19 #### [place] [address] Lab Specimen Source Nasal, Nasopharyngeal Normal [facility] Comment on above: Performed By: #### C OV19 #### [place] [address] Complete Blood Count + Diffe hamzah 04-28-2022 Basophils/100 WBC (Bld) 0.3 % 0.0 - 2.0 [facility]Neph[facility] [address] DO Work Phone: Erythrocyte distribution width (RBC) [Ratio] 13.0 % See Below [place] [address] DO Work Phone: Comment on above: Reference Range: 11. 5 - 14.5 Hematocrit (Bld) [Volume fraction] 40.9 % See Below [place] [address] DO Work Phone: Comment on above: Reference Range: 36. 0 - 46.0 Hemoglobin (Bld) [Mass/Vol] 14.0 g/dL See Below [place] [address] DO Work Phone: Comment on above: Reference Range: 12. 0 - 16.0 Lymphocytes/100 WBC (Bld) 25.3 % See Below [place] [address] DO Work Phone: Comment on above: Reference Range: 13. 0 - 44.0 MCHC (RBC) [Mass/Vol] 34.2 g/dL See Below [facility] [place] [address] DO Work Phone: [phone] Comment on above: Reference Range: 32. 0 - 36.0 MCV (RBC) [Entitic vol] 88 fL 80 - 100 [facility] [place] [address] DO Work Phone: [phone] Monocytes/100 WBC (Bld) 8.2 % 2.0 - 10.0 -Nephrolog [place] [address] DO Work Phone: [phone] Neutrophils/100 WBC (Bld) 64.5 % See Below [facility] [place] [address] DO Work Phone: [phone] Comment on above: Reference Range: 40. 0 - 80.0 Platelets (Bld) [#/Vol] 213 10*3/uL 150 - 450 [facility] [place] [address] DO Work Phone: [phone] RBC (Bld) [#/Vol] 4.63 {x10E12/L} See Below [facility] [place] [address] DO Work Phone: [phone] Comment on above: Reference Range: 4.0 0 - 5.20 WBC (Bld) [#/Vol] 4.6 10*3/uL 4.4 - 11.3 MP-Nep hrolog [place] [address] DO Work Phone: [phone] Complete Blood Count + Differential 0.00 {x10E9/L} See Below [facility] [place] [address] DO Work Phone: [phone] Comment on above: Reference Range: 0.0 0 - 0.10 Complete Blood Count + Differential 0.10 {x10E9/L} See Below [facility] [place] [address] DO Work Phone: [phone] Comment on above: Reference Range: 0.0 0 - 0.70 Complete Blood Count + Differential 0.40 {x10E9/L} See Below [facility]Neph[facility] [address] DO Work Phone: Comment on above: Reference Range: 0.1 0 - 1.00 Complete Blood Count + Differential 1.20 {x10E9/L} See Below [place] [address] DO Work Phone: Comment on above: Reference Range: 1.2 0 - 4.80 Complete Blood Count + Differential 3.00 {x10E9/L} See Below [place] [address] DO Work Phone: Comment on above: Reference Range: 1.2 0 - 7.70 Percent differential counts (%) should be interpreted in the context of the absolute cell counts (cells/L). Complete Blood Count + Differential 1.7 % 0.0 - 6.0 [place] [address] DO Work Phone: Coronavirus 2019 RNA by PCR, Symptomaticon 04-28-2022 Coronavirus 2019 RNA by PCR, Symptomatic Not detected Normal See Below [place] [address] DO Work Phone: Comment on above: SOURCE: Nasal, Nasop haryngealReference Range: Not Detected.This test has received FDA Emergency Use Authorization (EUA) and has been verified by [facility]. This test is only authorized for the duration of time that circumstances exist to justify the authorization of the emergency use of in vitro diagnostic tests for the detection of SARS-CoV-2 virus and/or diagnosis of COVID-19 infection under section 564(b)(1) of the Act, 21 U.S.C. 360bbb-3(b)(1), unless the authorization is terminated or revoked sooner. [facility] is certified under CLIA-88 as qualified to perform high complexity testing. Testing is performed in the [facility] laboratory located at [address] [place] [address].SARS-CoV-2/Flu/RSV Multiplex Test: Fact sheet for providers: https://www.fda.gov/media/651380/downloadFact sheet for patients: https://www.fda.gov/media/854603/download Covid 19 Resultson 2 SARS-CoV-2 (COVID-19) RNA [...] You may also be contacted by the [facility] to see if any of your close [...] or Naproxen (Aleve) can also be used. Wkhz-gaw-gehitfw cough and cold medicines can be used according to the instructions on the package. Some tpkn-dty-zlzpimg medicines also contain acetaminophen. Make sure you [...] water are not available, use alcohol-based hand development expert. Avoid touching your eyes, nose, and mouth [...] 24 agueda (more content not included)... Normal [facility] Cult, Urineon 04-28-2022 Bacteria identified Cx Nom (U) Abnormal MP-Nephrolog -[facility] Darryn 3 DO Work Phone: GLUCOSE-POCTon 04-28-2022 Glucose [Mass/Vol] 244 mg/dL High 74 - [address] [place] [address] Comment on above: Performed By: #### G MATTHEW ####[address] [address] Glucose [Mass/Vol] 297 mg/dL High 74 - [address] [place] [address] Comment on above: Performed By: #### G MATTHEW ####[address] [address] Glucose [Mass/Vol] 217 mg/dL High 74 - [address] [place] [address] Comment on above: Performed By: #### G MATTHEW ####[address] [address] LACTATEon 04-28-2022 Lactate [Moles/Vol] 1.5 mmol/L Normal 0.4 - 2.[address] [facility] Comment on above: Result Comment: Carole puncture immediately after or during the administration of Metamizole may lead to falsely low results. Testing should be performed immediately prior to Metamizole dosing. Performed By: #### B MP #### [address] [address] Laboratory - Chemistry and C hemistry - challengeon 04-28-2022 Glucose [Mass/Vol] 244 mg/dL above high threshold 74 - 99 [facility] Darryn 3 DO Work Phone: Glucose [Mass/Vol] 297 mg/dL above high threshold 74 - [address] [facility] 3 DO Work Phone: [phone] Glucose [Mass/Vol] 217 mg/dL above high threshold 74 - 99 -Nephrolog [place] [address] DO Work Phone: [phone] Anion gap [Moles/Vol] 12 mmol/L 10 - 20 -Nephrolog [place] [address] DO Work Phone: [phone] Calcium [Mass/Vol] 7.8 mg/dL below low threshold 8.6 - 10.3 -Nephrolog [place] [address] DO Work Phone: [phone] Chloride [Moles/Vol] 94 mmol/L below low threshold 98 - 107 -Nephrolog [place] [address] DO Work Phone: [phone] CO2 [Moles/Vol] 23 mmol/L 21 - 32 -Nephro log [place] [address] DO Work Phone: [phone] Creatinine [Mass/Vol] 0.37 mg/dL below low threshold See Below [facility] [place] [address] DO Work Phone: [phone] Comment on above: Reference Range: 0.5 0 - 1.05 Glucose [Mass/Vol] 257 mg/dL above high threshold 74 - 99 -Nephrolog [facility] 3 DO Work Phone: [phone] Potassium [Moles/Vol] 3.6 mmol/L 3.5 - 5.3 -Nephrolog [place] [address] DO Work Phone: [phone] Sodium [Moles/Vol] 125 mmol/L below low threshold 136 - 145 -Nephrolog [place] [address] DO Work Phone: [phone] Comment on above: verified with juanis olivares result Urea nitrogen [Mass/Vol] 9 mg/dL 6 - 23 -Nephrolog [facility] 3 DO Work Phone: [phone] Anion gap [Moles/Vol] 13 mmol/L 10 - 20 MP-Nephrolog [place] [address] DO Work Phone: [phone] Calcium [Mass/Vol] 8.4 mg/dL below low threshold 8.6 - 10.3 -Nephrolog [place] [address] DO Work Phone: [phone] Chloride [Moles/Vol] 90 mmol/L below low threshold 98 - 107 -Nephrolog [place] [address] DO Work Phone: [phone] CO2 [Moles/Vol] 25 mmol/L 21 - 32 -Nephro log [place] [address] DO Work Phone: [phone] Creatinine [Mass/Vol] 0.47 mg/dL below low threshold See Below [facility] [place] [address] [facility] Work Phone: Comment on above: Reference Range: 0.5 0 - 1.05 Glucose [Mass/Vol] 284 mg/dL above high threshold 74 - 99 [facility] [place] [address] [facility] Work Phone: [phone] Potassium [Moles/Vol] 3.7 mmol/L 3.5 - 5.3 [facility] [place] [address] [facility] Work Phone: [phone] Sodium [Moles/Vol] 124 mmol/L below low threshold 136 - 145 [place] [address] DO Work Phone: Comment on above: repeated and verifie d Urea nitrogen [Mass/Vol] 10 mg/dL 6 - 23 -Nephrolog [place] [address] DO Work Phone: Lactate, Levelon 04-28-2022 Lactate [Moles/Vol] 1.5 mmol/L 0.4 - 2.0 -Ne phrolog [place] [address] DO Work Phone: Comment on above: Venipuncture immedia tely after or during the administration of Metamizole may lead to falsely low results. Testing should be performed immediately prior to Metamizole dosing. No Panel Informationon 04-28 >90 >90 MP-Nephrolog [facility] [place] 3 DO Work Phone: Comment on above: CALCULATIONS OF NICK MATED GFR ARE PERFORMED USING THE 2020 CKD-EPI STUDY REFIT EQUATION WITHOUT THE RACE VARIABLE FOR THE IDMS-TRACEABLE CREATININE METHODS.https://jasn.asnjournals.org/content//ASN .6489984569 >90 >90 MP-Nephrolog [facility] Dar[place] 3 DO Work Phone: Comment on above: CALCULATIONS OF NICK MATED GFR ARE PERFORMED USING THE 2020 CKD-EPI STUDY REFIT EQUATION WITHOUT THE RACE VARIABLE FOR THE IDMS-TRACEABLE CREATININE METHODS.https://jasn.asnjournals.org/content//ASN .1282169205 Order Reconciliationon 04-28 Order Reconciliation Page 1 Admission Reconciliation Document Reconciliation Type: Admission requested on behalf of Katerina Akbar (Advanced Practice Nurse) done by Katerina Akbar (MANGLE ROLL OPERATOR-TARGET WORKER) Admission - Reconciliation: 28-Apr-2022 13:52 by: Katerina Akbar (MANGLE ROLL OPERATOR-TARGET WORKER) Home MedicationsEnteredLast Dose TakenReconciled with current Order Reconciliation Comment/ Additional Information aspirin 81 mg oral tablet 1 tab(s) orally once a [id number] 8:00 AM Aspirin TabletDOSE = 81 mg Oral Dailyaspirin 81 mg oral tablet continued as the inpatient order Aspirin CARBAMAZEPINE 200 MG TABLET 2 tab(s) orally 2 times a [id number]-Apr-2022 8:00 AM Reviewed and Held CARVEDILOL 3.125 MG TABLET 1 tab(s) orally once a [id number] 8:00 AM Carvedilol - PEDS Tablet (COREG)DOSE = 3.125 mg Oral Daily CARVEDILOL 3.125 MG TABLET continued as the inpatient order Carvedilol - PEDS Centrum Silver oral tablet 1 tab(s) orally once a [id number] 8:00 AM Reviewed and Held HYDROCHLOROTHIAZIDE 25 MG TAB 1 tab(s) orally once a [id number]-Apr-2022 8:00 AM Reviewed and Held ibuprofen 200 mg oral tablet 3 tab(s) orally every 6 hours, As Needed 4:00 AM Reviewed and Held LOSARTAN POTASSIUM 100 MG TAB 1 tab(s) orally once a [id number]-Apr-2022 8:00 AM Reviewed and Held magnesium gluconate 500 mg oral tablet 1 tab(s) orally once a day (at bedtime) PM Reviewed and Held METFORMIN HCL ER 500 MG TABLET 2 tab(s) orally 2 times a [id number]-Apr-2022 8:00 AM Reviewed and Held MIRTAZAPINE 15 MG TABLET 1 tab(s) orally once a day (at bedtime)28-Apr-2022 PM Mirtazapine - PEDS Tablet (REMERON)DOSE = 15 mg Oral Every NightCa mg/DOSE x 1 = 15 mg/Dose (Daily Total is 15 mg)MIRTAZAPINE 15 MG TABLET continued as the inpatient order Mirtazapine - PEDS Turmeric 500 mg oral capsule 2 cap(s) orally once a [id number] 8:00 AM Reviewed and Held venlafaxine 75 mg oral capsule, extended release 1 cap(s) orally once a day with 150mg [id number] 2 8:00 AM Venlafaxine Extended Release Capsule, [...] oral tablet 1 tab(s) orally once a [id number]-Apr-2022 8:00 AM Cyanocobalamin TabletDOSE = 1,000 microgram(s) Oral Daily Vitamin B-12 1000 mcg oral tablet continued as the inpatient order Cyanocobalamin Vitamin C 1000 mg oral tablet 1 tab(s) orally once a [id number]-Apr-2022 8:00 AM Ascorbic Acid Tablet (VITAMIN C)DOSE [...] day 8:00 AM Reviewed and Held Normal [facility] Patient Profile - Adult v2on 04-28-2022 Patient [...] Health: Weight in kg97.7 kilogram(s)(1) Weight in tnw542.3 pound(s) Weight Methodstated Scale Typebed Height in [...] From History and Physical 28-Apr-2022 13:48 Normal [facility] Provider Note - ED v3on - Provider [...] Alert and oriented x4, GCS 15 , 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 Sensation and motor function of extremities grossly intact. Psych: Appropriate mood and affect. I have reviewed and confirmed nurses/medics notes for patient past, social and family history. Portions of this note were dictated by speech recognition. An attempt at proof reading was made to minimize errors. Minor errors in test car driver may be present. HISTORY OF PRESENTING ILLNESS [...] Reference Range: STRAW,YELLOW Appearance, Urine CLEAR Specific [place], Urine 1.015 pH, Urine 7.0 Protein, Urine [...] Authorization (EUA) and has been verified by [facility]. This test is only authorized for the duration of time that circum Lactate, Level 28-Apr-2022 11:03:00 ResultValue Lactate, Level 1.5 Radiology Results: Impression: No acute cardiopulmonary disease. Xray Chest 1 View [Apr 28 (more content not included)... Normal [facility] Radiologyon 04-28-2022 XR Chest Single view Normal MP-N ephrolog [facility] Darryn 3 DO Work Phone: T4 - Free Thyroxine, Serumon 04-28-2022 Free T4 [Mass/Vol] 0.94 ng/dL See Below MP-Nep hrolog [facility] Dar[place] 3 DO Work Phone: Comment on above: Reference Range: 0.6 1 - 1.12 Thyroxine Free testing is performed using different testing methodology at [facility] than at other [facility]. Direct result comparisons should only be made [...] THYROXINE,FREE 0.94 ng/dL Normal 0.61 - 1.12 [facility] Comment on above: Result Comment: Thyr oxine Free testing is performed using different testing methodology at [facility] than at [facility]. Direct result comparisons should only be made [...] blood draw. Performed By: #### B #### [place] [address] [place] [address] TSHon 04-28-2022 TSH Qn 0.82 m[IU]/L Normal 0.44 - 3.98 [facility] Comment on above: Result Comment: TSH testing is performed using different testing methodology at [facility] than at other [facility]. Direct result comparisons should only be made within the same method. Performed By: #### T SH2 #### [address] [address] TSH - Thyroid Stimulating Ho isra, Serumon 04-28-2022 TSH Qn 0.82 m[IU]/L See Below [facility] [place] [facility] DO Work Phone: Comment on above: Reference Range: 0.4 4 - 3.98 TSH testing is performed using different testing methodology at [facility] than at other [facility]. Direct result comparisons should only be made within the same method. UA MICROSCOPICon 04-28-2022 BACTERIA 4+ /HPF Abnormal [facility] Comment on above: Performed By: #### U AMIC #### [address] [address] RBC 2 /HPF Normal 0-5 [facility] Comment on above: Performed By: #### U AMIC #### [place] [id number] SQUAMOUS EPITH. CELLS 3 /HPF Normal [facility] Comment on above: Performed By: #### U AMIC #### [address] [address] WBC 9 /HPF Abnormal 0-5 [facility] Comment on above: Performed By: #### U AMIC #### [address] [address] URINALYSIS WITH CULTURE IF I NDICATEDon 04-28-2022 Appearance (U) CLEAR Normal CLEAR [facility] Comment on above: Performed By: #### U ARFX #### [address] [address] Bilirubin Ql (U) Negative Normal NEGATIVE [facility] Comment on above: Performed By: #### U ARFX #### [address] [address] Color (U) YELLOW Normal STRAW,YELLOW [facility] Comment on above: Performed By: #### U ARFX #### [address] [address] Glucose Ql (U) 150 (2+) Abnormal NEGATIVE [facility] Comment on above: Performed By: #### U ARFX #### [address] [address] Hemoglobin Ql (U) Negative Normal NEGATIVE [facility] Comment on above: Performed By: #### U ARFX #### [address] [address] Ketones Ql (U) Negative Normal NEGATIVE [facility] Comment on above: Performed By: #### U ARFX #### [place] [id number] Leukocyte esterase Test strip Ql (U) TRACE Abnormal NEGATIVE [facility] Comment on above: Performed By: #### U ARFX #### [place] [address] Nitrite Ql (U) Positive Abnormal NEGATIVE [facility] Comment on above: Performed By: #### U ARFX #### [place] [id number] pH (U) 7.0 [pH] Normal 5.0 - 8.0 [facility] Comment on above: Performed By: #### U ARFX #### [place] [address] Protein Ql (U) 30 (1+) Abnormal NEGATIVE [facility] Comment on above: Performed By: #### U ARFX #### [address] [address] Specific gravity (U) [Rel density] 1.015 Normal 1.005 - 1.035 [facility] Comment on above: Performed By: #### U ARFX #### [address] [address] Urobilinogen (U) [Mass/Vol] mg/dL Normal 0.0 - 1.9 [facility] Comment on above: Performed By: #### U ARFX #### [address] [address] Color (U) YELLOW See Below MP-Nephrolog y-[facility] 3 DO Work Phone: Comment on above: Reference Range: STR AW,YELLOW Glucose Ql (U) 150 (2+) Abnormal NEGATIVE MP-Nephrol og [place] [address] DO Work Phone: [phone] Ketones Ql (U) Negative NEGATIVE MP-Nephrol og -[place] [address] DO Work Phone: [phone] Leukocyte esterase Test strip Ql (U) TRACE Abnormal NEGATIVE MP-Nephrolog [place] [address] DO Work Phone: [phone] pH (U) 7.0 [pH] 5.0 - 8.0 MP-Nephrolog [place] [address] DO Work Phone: [phone] Protein (U) [Mass/Vol] 30 (1+) Abnormal NEGATIVE MP-Nephrolog [place] [address] DO Work Phone: [phone] RBC (U) [#/Vol] Negative NEGATIVE MP-Nephro log [place] [address] DO Work Phone: [phone] Specific gravity (U) [Rel density] 1.015 1 See Below -Nephrolog [place] [address] DO Work Phone: [phone] Comment on above: Reference Range: 1.0 05 - 1.035 URINALYSIS WITH CULTURE IF INDICATED Positive Abnormal NEGATIVE MP-Nephrolo g [place] [address] DO Work Phone: URINALYSIS WITH CULTURE IF INDICATED <2.0 0.0 - 1.9 MP-Nephrolo g [place] [address] DO Work Phone: URINALYSIS WITH CULTURE IF INDICATED Negative NEGATIVE MP-Nephrolo g [place] [address] DO Work Phone: URINALYSIS WITH CULTURE IF INDICATED CLEAR CLEAR MP-Nephrolo g [place] [address] DO Work Phone: URINE CULTURE,BACTERIALon URINE CULTURE,BACTERIAL PATIENT: REINIER MENDOZA LOCATION: [address]#: [id number] : 68 AGE: SEX: F ORDERED BY: [...] DEPENDENT NS=NONSUSCEPTIBLE X=REPORTED IN ERROR ___ Normal [facility] Comment on above: Performed By: #### B MP #### [place] [address] [place] [address] Urinalysis, Microscopicon Urinalysis, Microscopic 4+ Abnormal MP-Nephrolog y-[facility] 3 DO Work Phone: Urinalysis, Microscopic 3 {/HPF} MP-Nephrolog [place] [address] DO Work Phone: [phone] Urinalysis, Microscopic 2 {/HPF} 0-5 -Nephrolog [facility] 3 DO Work Phone: [phone] Urinalysis, Microscopic 9 {/HPF} Abnormal 0-5 [facility] [place] [address] [facility] Work Phone: [phone] Office Visit (Internal Medic ine)on 03-20-2022 Follow-up visit Diagnoses/Problems Assessed Otitis externa (380.10) (H60.90) History of recurrent ear infection (V12.49) (Z86.69) Orders History of recurrent ear infection, Otitis externa Otolaryngology - General Referral Evaluation and Treatment Evaluate AND Treat Status: Complete Done: 20Mar2022 Ordered;For: History of recurrent ear infection, Otitis externa; Ordered By: James Sahu Performed: Due: 18Jun2022; Last Updated By: Melisas Saldana; 03/20/2022 3:53:36 PM FAXED REFERAL TO DR RIDLEY Otitis externa Start: Cipro HC 0.2-1 % Otic Suspension; INSTILL 3 DROPS IN AFFECTED EAR(S) TWICE DAILY Rx By: James Sahu; Dispense: 0 Days ; #:1 X 10 ML Bottle; Refill: 0;For: Otitis externa; JAMIE = N; Sent To: [facility]; Last Updated By: Jose AlejandroGoLive! Mobile; 03/20/2022 3:49:16 PM Provider Impressions 1. It [...] TabletTAKE 1 TABLET DAILY. D3-50 1.25 MG (93944 UT) Oral CapsuleTAKE 1 CAPSULE ONCE DAILY [...] Vital Signs Recorded: 20Mar2022 03:33PM Heart Rate98 Fmyfdyha514 Wkcahoedo783 Height5 ft Tlxcpd409 lb BMI Rbwxlhqqrz84.94 kg/m2 BSA Calculated1.96 Tobacco Usea) Yes Patient [...] discharge. Jeanette (more content not included)... Normal [employer] Tobacco Screening.on 022 Fall risk assessment a) No falls within the last year [facility] Work Phone: Tobacco use status [facility] a) Yes [facility] Work Phone: [phone] Tobacco Screening. Yes [facility] Work Phone: Complete Blood Count + Diffe rentialon 12-03-2021 Basophils/100 WBC (Bld) 0.4 % 0.0 - 2.0 [facility] Work Phone: [phone] Erythrocyte distribution width (RBC) [Ratio] 13.0 % See Below [facility] Work Phone: [phone] Comment on above: Reference Range: 11. 5 - 14.5 Hematocrit (Bld) [Volume fraction] 42.6 % See Below [facility] Work Phone: [phone] Comment on above: Reference Range: 36. 0 - 46.0 Hemoglobin (Bld) [Mass/Vol] 15.0 g/dL See Below [facility] Work Phone: [phone] Comment on above: Reference Range: 12. 0 - 16.0 Lymphocytes/100 WBC (Bld) 35.1 % See Below [facility] Work Phone: [phone] Comment on above: Reference Range: 13. 0 - 44.0 MCHC (RBC) [Mass/Vol] 35.1 g/dL See Below [facility] Work Phone: [phone] Comment on above: Reference Range: 32. 0 - 36.0 MCV (RBC) [Entitic vol] 91 fL 80 - 100 [facility] Work Phone: [phone] Monocytes/100 WBC (Bld) 7.5 % 2.0 - 10.0 [facility] Work Phone: [phone] Neutrophils/100 WBC (Bld) 55.5 % See Below [facility] Work Phone: [phone] Comment on above: Reference Range: 40. 0 - 80.0 Platelets (Bld) [#/Vol] 303 10*3/uL 150 - 450 [facility] Work Phone: [phone] RBC (Bld) [#/Vol] 4.70 {x10E12/L} See Below [facility] Work Phone: [phone] Comment on above: Reference Range: 4.0 0 - 5.20 WBC (Bld) [#/Vol] 8.0 10*3/uL 4.4 - 11.3 [facility] Work Phone: [phone] Complete Blood Count + Differential 0.00 {x10E9/L} See Below [facility] Work Phone: [phone] Comment on above: Reference Range: 0.0 0 - 0.10 Complete Blood Count + Differential 0.10 {x10E9/L} See Below [facility] Work Phone: [phone] Comment on above: Reference Range: 0.0 0 - 0.70 Complete Blood Count + Differential 0.60 {x10E9/L} See Below [facility] Work Phone: [phone] Comment on above: Reference Range: 0.1 0 - 1.00 Complete Blood Count + Differential 2.80 {x10E9/L} See Below [facility] Work Phone: [phone] Comment on above: Reference Range: 1.2 0 - 4.80 Complete Blood Count + Differential 4.40 {x10E9/L} See Below [facility] Work Phone: [phone] Comment on above: Reference Range: 1.2 0 - 7.70 Percent differential counts (%) should be interpreted in the context of the absolute cell counts (cells/L). Complete Blood Count + Differential 1.5 % 0.0 - 6.0 [facility] Work Phone: [phone] Hemoglobin A1Con 12-03-2021 Glucose [Mass/Vol] 258 mg/dL [facility] Work Phone: [phone] HbA1c (Bld) [Mass fraction] 10.6 % Abnormal [facility] Work Phone: [phone] Comment on above: Diagnosis of Diabete s-Adults Non-Diabetic: < or = 5.6% Increased risk for developing diabetes: 5.7-6.4% Diagnostic of diabetes: > or = 6.5%. Monitoring of Diabetes Age (y) Therapeutic Goal (%) Adults: >18 <7.0 Pediatrics: 13-18 <7.5 7-12 <8.0 0- 6 7.5-8.5 [employer]. Diabetes Care 33(S1), Aug 2009. Laboratory - Chemistry and C hemistry - challengeon 12-03-2021 Albumin BCP dye [Mass/Vol] 4.3 g/dL 3.4 - 5.0 [facility] Work Phone: [phone] ALP [Catalytic activity/Vol] 73 U/L 33 - 110 [facility] Work Phone: [phone] ALT With P-5'-P [Catalytic activity/Vol] 39 U/L 7 - 45 [facility] Work Phone: [phone] Comment on above: Patients treated wit h Sulfasalazine may generate falsely decreased results for ALT. Anion gap [Moles/Vol] 14 mmol/L 10 - 20 [facility] Work Phone: [phone] AST With P-5'-P [Catalytic activity/Vol] 35 U/L 9 - 39 [facility] Work Phone: [phone] Bilirubin [Mass/Vol] 0.3 mg/dL 0.0 - 1.2 -[facility] Work Phone: [phone] Calcium [Mass/Vol] 9.7 mg/dL 8.6 - 10.3 [facility] Work Phone: [phone] Chloride [Moles/Vol] 96 mmol/L below low threshold 98 - 107 [facility] Work Phone: [phone] CO2 [Moles/Vol] 25 mmol/L 21 - 32 [facility] Work Phone: [phone] Creatinine [Mass/Vol] 0.67 mg/dL See Below [facility] Work Phone: [phone] Comment on above: Reference Range: 0.5 0 - 1.05 Glucose [Mass/Vol] 289 mg/dL above high threshold 74 - 99 [facility] Work Phone: [phone] Potassium [Moles/Vol] 4.1 mmol/L 3.5 - 5.3 [facility] Work Phone: [phone] Protein [Mass/Vol] 7.5 g/dL 6.4 - 8.2 [facility] Work Phone: [phone] Sodium [Moles/Vol] 131 mmol/L below low threshold 136 - 145 [facility] Work Phone: [phone] TSH Qn 1.05 m[IU]/L See Below [facility] Work Phone: [phone] Comment on above: Reference Range: 0.4 4 - 3.98 TSH testing is performed using different testing methodology at [facility] than at other [facility]. Direct result comparisons should only be made within the same method. Urea nitrogen [Mass/Vol] 17 mg/dL 6 - 23 [facility] Work Phone: [phone] No Panel Informationon 12-03 >90 >90 [facility] Work Phone: [phone] Comment on above: CALCULATIONS OF NICK MATED GFR ARE PERFORMED USING THE 2020 CKD-EPI STUDY REFIT EQUATION WITHOUT THE RACE VARIABLE FOR THE IDMS-TRACEABLE CREATININE METHODS.https://jasn.asnjournals.org/content//ASN .3224162774 Blood Pressure Cuff Sizeon 0 09-10-2021 Fall risk assessment a) No falls within the last year [facility] Work Phone: [phone] Tobacco use status [facility] a) Yes [facility] Work Phone: [phone] Blood Pressure Cuff Size Adult [facility] Work Phone: [phone] Blood Pressure Cuff Size Yes [facility] Work Phone: [phone] COVID-19, MOLECULARon 2020 SARS-COV-2 (KATE ID) Not Detected Normal Not Detected [facility] Comment on above: Result Comment: This test [...] at the following links: For Healthcare Providers: https://www.fda.gov/media/742581/download For Patients: https://www.fda.gov/media/100714/download COVID-19, Molecularon 2020 Interpretation and review of laboratory results Normal [facility] SARS-CoV-2 Not Detected Not Detected [facility] Comment on above: This test was perfor med under the FDA's Emergency Use Authorization (EUA). Testing was performed using the [employer] ID NOW COVID-19 assay on the ID NOW platform. This test has not been approved for use in asymptomatic patients and its performance in this patient population has not been evaluated. Negative results do not rule out the presence of SARS-CoV-2/COVID-19. Fact sheets for the EUA can be found at the following links: For Healthcare Providers: https://www.fda.gov/media/480009/download For Patients: https://www.fda.gov/media/058042/download POC CBC and Differentialon 0 10-23-2020 Basophils (Bld) [#/Vol] 0.02 10*3/uL [facility] Basophils/100 WBC (Bld) 0.3 % [facility] Eosinophils (Bld) [#/Vol] 0.16 10*3/uL [facility] Eosinophils/100 WBC (Bld) 2.2 % [facility] Erythrocyte distribution width (RBC) [Entitic vol] 12.2 % 11.6 - 14.8 % [facility] Hematocrit (Bld) [Volume fraction] 41.0 % 36.0 - 46.0 % [facility] Hemoglobin (Bld) [Mass/Vol] 14.1 g/dL 12.0 - 16.0 g/dL [facility] Immature granulocytes (Bld) [#/Vol] 0.05 10*3/uL [facility] Immature granulocytes/100 WBC (Bld) 0.70 % [facility] Comment on above: The IG parameter is the percentage of metamyelocytes, myelocytes and promyelocytes. An immature granulocyte count (IG) of 1% or more suggests the possibility of infection, an IG count of 3% is very likely related to an infection. Interpretation and review of laboratory results Abnormal [facility] Lymphocytes (Bld) [#/Vol] 2.41 10*3/uL [facility] Lymphocytes/100 WBC (Bld) 32.5 % [facility] MCH (RBC) [Entitic mass] 31.2 pg 26.0 - 34.0 pg [facility] MCHC (RBC) [Mass/Vol] 34.4 g/dL 31.0 - 37.0 g/dL [facility] MCV (RBC) [Entitic vol] 90.7 fL 80.0 - 100.0 fL [facility] Monocytes (Bld) [#/Vol] 0.60 10*3/uL [facility] Monocytes/100 WBC (Bld) 8.1 % [facility] Neutrophils (Bld) [#/Vol] 4.18 10*3/uL [facility] Neutrophils/100 WBC (Bld) 56.2 % [facility] Platelet mean volume (Bld) [Entitic vol] 9.2 fL Low 9.4 - 12.4 fL [facility] Platelets (Bld) [#/Vol] 259 10*3/uL [facility] RBC (Bld) [#/Vol] 4.52 10*6/uL [facility] WBC (Bld) [#/Vol] 7.42 10*3/uL [facility] POC Influenza A/Bon 10-24-19 Interpretation and review of laboratory results Normal [facility] POC Influenza B Ag Not Detected Not Detected [facility] POC Rapid Influenza A Ag Not Detected Not Detected [facility] POC Liver Panel Pluson 10-23 Albumin [Mass/Vol] 3.4 g/dL 3.2 - 5.2 g/dL [facility] ALP [Catalytic activity/Vol] 67 U/L 40 - 150 U/L [facility] ALT [Catalytic activity/Vol] 37 U/L 0 - 40 U/L [facility] Amylase [Catalytic activity/Vol] 56 U/L 25 - 115 U/L [facility] AST [Catalytic activity/Vol] 39 U/L 0 - 45 U/L [facility] Bilirubin [Mass/Vol] 0.6 mg/dL 0.0 - 1 .3 mg/dL [facility] Gamma glutamyl transferase [Catalytic activity/Vol] 75 U/L High 7 - 33 U/L [facility] Interpretation and review of laboratory results Abnormal [facility] Protein [Mass/Vol] 7.6 g/dL 6.0 - 8.0 g/dL [facility] POC Urinalysis Dipstick, Aut oon 10-23-2020 Bilirubin Ql (U) Negative Negative [facility] Glucose Ql (U) Negative Negative mg/dL [facility] Hemoglobin Ql (U) Negative Negative [facility] Interpretation and review of laboratory results Abnormal [facility] Ketones Ql (U) Negative Negative mg/dL [facility] Leukocyte esterase Test strip Ql (U) Negative Negative [facility] Nitrite Ql (U) Negative Negative [facility] pH (U) 7.0 [pH] [facility] Protein Ql (U) 100 Abnormal Negative mg/dL [facility] Specific gravity (U) [Rel density] 1.020 [facility] Urobilinogen Qn (U) 0.2 mg/dL <2.0 [facility] POC Venous Blood Gases with Full Panelon 10-23-2020 Base excess Calc (BldV) [Moles/Vol] 0.0 mmol/L [facility] Calcium.ionized [Mass/Vol] 4.5 mg/dL 4.5 - 5.3 mg/dL [facility] Chloride [Moles/Vol] 98 mmol/L 98 - 10 8 mmol/L [facility] CO2 (BldV) [Partial pressure] 41.6 mm[Hg] [facility] Creatinine [Mass/Vol] 0.81 mg/dL 0.40 - 1.10 [facility] GFR/1.73 sq M predicted among non-blacks MDRD (S/P/Bld) [Vol rate/Area] The eGFR should be used for monitoring renal function only and not for medication dosing. Specimens collected in a lithium heparin tube may show erroneous pO2, pCO2 and related calculations due to aerobic handling. If the most accurate venous blood gas results are needed, use a heparinized blood gas syringe. [facility] GFR/1.73 sq M.predicted MDRD (S/P/Bld) [Vol rate/Area] 84 mL/min/{1.73_m2} >=60 mL/min/1.73 m2 [facility] Glucose [Mass/Vol] 203 mg/dL High 65 - 99 mg/dL [facility] HCO3 (Bld) [Moles/Vol] 25.2 mmol/L 24.0 - 28.0 mmol/L [facility] Hematocrit (Bld) [Volume fraction] 45 % 36 - 46 % [facility] Hemoglobin (Bld) [Mass/Vol] 15.4 g/dL 12.0 - 16.0 g/dL [facility] Interpretation and review of laboratory results Abnormal [facility] Lactate [Moles/Vol] 1.9 mmol/L 0.6 - 2. 0 mmol/L [facility] Oxygen (BldV) [Partial pressure] 48 mm[Hg] High [facility] Oxygen saturation in Venous blood 83.1 % High 40.0 - 70.0 % [facility] pH (BldV) 7.39 [pH] [facility] Potassium [Moles/Vol] 4.2 mmol/L 3.5 - 5.1 mmol/L [facility] Sodium [Moles/Vol] 132 mmol/L Low 135 - 145 mmol/L [facility] Urea nitrogen [Mass/Vol] 17 mg/dL 8 - 25 mg/dL [facility] CSF CELL COUNT Aon 7 CSF COMMENT 12 CC CLEAR,COLORLESS CSF Normal [facility] CSF RBC NONE SEEN /UL Normal 0 [facility] WBC #/vol (Bld) NONE SEEN /UL Normal 0-5 [facility] CSF GLUCOSEon 12-19-2016 CSF GLUCOSE 120 H MG/DL Abnormal 40-70 [facility] CSF TOTAL PROTEIon 7 CSF TOTAL PROTEIN 27 MG/DL Normal 15-45 [facility] LUMBAR PUNCTUREon 12-19-2016 LUMBAR PUNCTURE FLUORO GUIDANCE CPT [facility] IM Normal [facility] URINE PREGNANCYon 12-19-2016 HCG.beta subunit ( test) Ql (U) Negative Normal [facility] CBC WITH DIFFon 05-27-2016 ABSOLUTE BASO 0.00 K/UL Normal 0.00-0.20 [facility] ABSOLUTE EOS 0.10 K/UL Normal 0-0.33 [facility] ABSOLUTE LYMPHOCYTE 2.90 K/UL Normal 1.1-4.8 [facility] ABSOLUTE MONOCYTE 0.70 K/UL Normal 0.2-0.7 [facility] ABSOLUTE NEUTROPHIL 7.70 K/UL Normal 1.83-8.70 [facility] Basophils Auto #/vol (Bld) 0.4 % Normal 0.0-1.5 [facility] DIFF TYPE AUTO Normal [facility] Eosinophils/100 leukocytes 0.9 % Normal 0.0-3.0 [facility] Erythrocyte distribution width Auto Ratio (RBC) 13.3 % Normal 10.9-14.3 [facility] Erythrocytes (RBC) 4.50 M/UL Normal 4.00-4.90 [facility] Hematocrit (HCT) 40.7 % Normal 37.0-47.0 [facility] Hemoglobin mass conc (Bld) 13.9 g/dL Normal 12.0-15.0 [facility] Lymphocytes/100 leukocytes 25 % Normal 24-44 [facility] MCH 30.9 pg Normal 28.0-34.0 [facility] MCHC mass conc (RBC) 34.2 MG/DL Normal 33.0-37.0 [facility] MCV 90.5 fL Normal 80-100 [facility] Monocytes/100 leukocytes 6.5 % Normal 3.4-9.0 [facility] NEUTROPHIL 67.2 % Normal 40.0-74.0 [facility] Platelets 262 10*3/uL Normal 150-450 [facility] WBC (Leukocytes) 11.5 10*3/uL Abnormal 4.5-11.0 [facility] HEPATIC FUNCTIONon 6 Alanine aminotransferase (ALT) 18 U/L Normal 10-54 [facility] Albumin 3.9 g/dL Normal 3.4-4.8 [facility] Albumin/Globulin Ratio 1.2 {ratio} Normal 1.1-2.2 [facility] ALK PHOS 54 U/L Normal 42-121 [facility] Aspartate aminotransferase (AST) 22 U/L Normal 10-41 [facility] Bilirubin (direct) 0.5 mg/dL Normal 0.3-1.5 [facility] Bilirubin (direct) 0.1 mg/dL Normal 0.0-0.5 [facility] Globulin 3.2 g/dL Normal 1.9-3.9 [facility] INDIRECT BILI 0.4 MG/DL Normal 0.0-1.0 [facility] Protein 7.1 g/dL Normal 5.9-7.8 [facility] TEGRETOLon 05-27-2016 CARBAMAZEPINE 6.9 UG/ML Normal 4-12 [facility] Vital Signs Date Time Vital Sign Value Performing Clinician Facility 06-16-2025 03:36-0500 Diastolic blood pressure 68 mm[Hg] Bren Kowalski DO Work Phone: [facility] 06-16-2025 03:36-0500 Heart rate 86 /min Bren Kowalski DO Work Phone: [facility] 06-16-2025 03:36-0500 Respiratory rate 18 /min Bren Kowalski DO Work Phone: [facility] 06-16-2025 03:36-0500 SaO2% (BldA) [Mass fraction] 95 % Bren Kowalski DO Work Phone: [phone] [place] [address] 06-16-2025 03:36-0500 Systolic blood pressure 139 mm[Hg] Bren Kowalski DO Work Phone: [facility] 06-16-2025 00:50-0500 Body height 167.6 cm Bren Kowalski DO Work Phone: [phone] [place] [address] 06-16-2025 00:50-0500 Body mass index (BMI) [Ratio] 38.58 kg/m2 Bren Kowalski DO Work Phone: [phone])[phone] [place] [address] 06-16-2025 00:50-0500 Body temperature 98.2 [degF] Bren Kowalski DO Work Phone: [facility] 06-16-2025 00:50-0500 Body weight 108.41 kg Bren Kowalski DO Work Phone: [facility] 06-07-2025 10:17-0400 Body height 168.9 cm Suzanne Jerezman [employer]ANGLE [employer] OPERATOR-[employer] WORKER Work Phone: [facility] 06-07-2025 10:17-0400 Body mass index (BMI) [Ratio] 37.6 kg/m2 Suzanne Cruz [employer]ANGLE [employer] OPERATOR-TARGET WORKER Work Phone: [facility] 06-07-2025 10:17-0400 Body weight 107.28 kg Suzanne Jerezman [employer]ANGLE ROLL OPERATOR-TARGET WORKER Work Phone: [facility] 06-07-2025 10:17-0400 Diastolic blood pressure 81 mm[Hg] Suzanne Arroyo [employer]ANGLE ROLL OPERATOR-TARGET WORKER Work Phone: [facility] 06-07-2025 10:17-0400 Heart rate 70 /min Suzanne Arroyo [employer]ANGLE [employer] OPERATOR-TARGET WORKER Work Phone: [facility] 06-07-2025 10:17-0400 Systolic blood pressure 139 mm[Hg] Suzanne Jerezman [employer]ANGLE [employer]LL OPERATOR-TARGET WORKER Work Phone: [facility] 04-19-2025 15:58-0400 Diastolic blood pressure 96 mm[Hg] Lynn Koch MANGLE ROLL OPERATOR-TARGET WORKER Work Phone: [facility] 04-19-2025 15:58-0400 Systolic blood pressure 169 mm[Hg] Lynn Koch MANGLE ROLL OPERATOR-TARGET WORKER Work Phone: [facility] 04-19-2025 14:50-0400 Body height 168.9 cm Lynn Koch MANGLE ROLL OPERATOR-TARGET WORKER Work Phone: [facility] 04-19-2025 14:50-0400 Body mass index (BMI) [Ratio] 39.06 kg/m2 Lynn Koch MANGLE ROLL OPERATOR-TARGET WORKER Work Phone: [facility] 04-19-2025 14:50-0400 Body weight 111.45 kg Lynn Koch MANGLE ROLL OPERATOR-TARGET WORKER Work Phone: [facility] 04-19-2025 14:50-0400 Heart rate 78 /min Lynn Koch MANGLE ROLL OPERATOR-TARGET WORKER Work Phone: [facility] 04-19-2025 14:50-0400 SaO2% (BldA) [Mass fraction] 97 % Lynn Koch MANGLE ROLL OPERATOR-TARGET WORKER Work Phone: [facility] 09-28-2024 12:41-0500 Body height 167.6 cm Suzanne Jerezman [employer]ANGLE ROLL OPERATOR-TARGET WORKER Work Phone: [facility] 09-28-2024 12:41-0500 Body mass index (BMI) [Ratio] 38.51 kg/m2 Suzanne Arroyo [employer]ANGLE ROLL OPERATOR-TARGET WORKER Work Phone: [facility] 09-28-2024 12:41-0500 Body weight 108.23 kg Suzanne Jerezman [employer]ANGLE ROLL OPERATOR-TARGET WORKER Work Phone: [facility] 09-28-2024 12:41-0500 Diastolic blood pressure 84 mm[Hg] Suzanne Jerezman [employer]ANGLE RO[employer] OPERATOR-TARGET WORKER Work Phone: [facility] 09-28-2024 12:41-0500 Heart rate 83 /min Suzanne Arroyo MANGLE ROLL OPERATOR-TARGET WORKER Work Phone: [facility] 09-28-2024 12:41-0500 Systolic blood pressure 139 mm[Hg] Suzanne Jerezman [employer]ANGLE [employer] OPERATOR-TARGET WORKER Work Phone: [facility] 07-08-2024 10:42-0500 Body height 167.6 cm Odell Newbill PA-C Work Phone: [facility] 07-08-2024 10:42-0500 Body mass index (BMI) [Ratio] 37.93 kg/m2 Odell Newbill PA-C Work Phone: [facility] 07-08-2024 10:42-0500 Body temperature 97.59 [degF] Odell Newbill PA-C Work Phone: [facility] 07-08-2024 10:42-0500 Body weight 106.59 kg Odell Newbill PA-C Work Phone: [facility] 07-08-2024 10:42-0500 Diastolic blood pressure 88 mm[Hg] Odell Newbill PA-C Work Phone: [facility] 07-08-2024 10:42-0500 Heart rate 80 /min Odell Newbill PA-C Work Phone: [facility] 07-08-2024 10:42-0500 Respiratory rate 16 /min Odell Newbill PA-C Work Phone: [facility] 07-08-2024 10:42-0500 SaO2% (BldA) [Mass fraction] 98 % Odell Quintonl PA-C Work Phone: [facility] 07-08-2024 10:42-0500 Systolic blood pressure 138 mm[Hg] Odellbety Alcantaral PA-C Work Phone: [facility] 06-23-2024 14:28-0500 Body height 167.6 cm Emilie Cornelius APRN-ARMANDO, DNP Work Phone: [facility] 06-23-2024 14:28-0500 Body mass index (BMI) [Ratio] 38.09 kg/m2 Emilie Cornelius APRN-ARMANDO, DNP Work Phone: [facility] 06-23-2024 14:28-0500 Body weight 107.05 kg Emilie CASTREJON, DNP Work Phone: [facility] 06-23-2024 14:28-0500 Diastolic blood pressure 76 mm[Hg] Eimlie Cornelius APRN-ARMANDO, DNP Work Phone: [facility] 06-23-2024 14:28-0500 Heart rate 73 /min Emilie CASTREJON, DNP Work Phone: [facility] 06-23-2024 14:28-0500 Systolic blood pressure 140 mm[Hg] Emilie CASTREJON, DNP Work Phone: [facility] 06-17-2024 16:00-0500 Diastolic blood pressure 94 mm[Hg] Franko Murray MD Work Phone: [facility] 06-17-2024 16:00-0500 Heart rate 80 /min Franko Murray MD Work Phone: [facility] 06-17-2024 16:00-0500 Respiratory rate 16 /min Franko Murray MD Work Phone: [facility] 06-17-2024 16:00-0500 SaO2% (BldA) [Mass fraction] 97 % Franko Murray MD Work Phone: [facility] 06-17-2024 16:00-0500 Systolic blood pressure 152 mm[Hg] Franko Murray MD Work Phone: [facility] 06-17-2024 11:47-0500 Body height 167.6 cm Franko Murray MD Work Phone: [facility] 06-17-2024 11:47-0500 Body mass index (BMI) [Ratio] 36.32 kg/m2 Franko Murray MD Work Phone: [facility] 06-17-2024 11:47-0500 Body temperature 98.01 [degF] Franko Murray MD Work Phone: [facility] 06-17-2024 11:47-0500 Body weight 102.06 kg Franko Murray MD Work Phone: [facility] 04-25-2024 12:05-0400 Body height 167.6 cm Josh Harris MANGLE ROLL OPERATOR-TARGET WORKER Work Phone: [facility] 04-25-2024 12:05-0400 Body mass index (BMI) [Ratio] 37.12 kg/m2 Josh Harris MANGLE ROLL OPERATOR-TARGET WORKER Work Phone: [facility] 04-25-2024 12:05-0400 Body temperature 97.7 [degF] Josh Harris MANGLE ROLL OPERATOR-TARGET WORKER Work Phone: [facility] 04-25-2024 12:05-0400 Body weight 104.33 kg Josh Harris MANGLE ROLL OPERATOR-TARGET WORKER Work Phone: [facility] 04-25-2024 12:05-0400 Diastolic blood pressure 77 mm[Hg] Josh Harris MANGLE ROLL OPERATOR-TARGET WORKER Work Phone: [facility] 04-25-2024 12:05-0400 Heart rate 85 /min Josh Harris MANGLE ROLL OPERATOR-TARGET WORKER Work Phone: [facility] 04-25-2024 12:05-0400 Respiratory rate 14 /min Josh Kimberly MANGLE ROLL OPERATOR-TARGET WORKER Work Phone: [facility] 04-25-2024 12:05-0400 SaO2% (BldA) [Mass fraction] 94 % Josh Kimberly MANGLE ROLL OPERATOR-TARGET WORKER Work Phone: [facility] 04-25-2024 12:05-0400 Systolic blood pressure 126 mm[Hg] Josh Kimberly MANGLE ROLL OPERATOR-TARGET WORKER Work Phone: [facility] 04-13-2024 15:21-0400 Body height 168.9 cm Josh Kimberly MANGLE ROLL OPERATOR-TARGET WORKER Work Phone: [facility] 04-13-2024 15:21-0400 Body mass index (BMI) [Ratio] 38.16 kg/m2 Josh Kimberly MANGLE ROLL OPERATOR-TARGET WORKER Work Phone: [facility] 04-13-2024 15:21-0400 Body temperature 98.2 [degF] Josh Kimberly MANGLE ROLL OPERATOR-TARGET WORKER Work Phone: [facility] 04-13-2024 15:21-0400 Body weight 108.86 kg Josh Kimberly MANGLE ROLL OPERATOR-TARGET WORKER Work Phone: [facility] 04-13-2024 15:21-0400 Diastolic blood pressure 87 mm[Hg] Josh Harris MANGLE ROLL OPERATOR-TARGET WORKER Work Phone: [facility] 04-13-2024 15:21-0400 Heart rate 81 /min Josh Jamieblossom MANGLE ROLL OPERATOR-TARGET WORKER Work Phone: [facility] 04-13-2024 15:21-0400 Respiratory rate 14 /min Josh Jamieblossom MANGLE ROLL OPERATOR-TARGET WORKER Work Phone: [facility] 04-13-2024 15:21-0400 SaO2% (BldA) [Mass fraction] 97 % Josh Jamieblossom MANGLE ROLL OPERATOR-TARGET WORKER Work Phone: [facility] 04-13-2024 15:21-0400 Systolic blood pressure 147 mm[Hg] Josh Harris APRN-TARGET WORKER Work Phone: [facility] 04-15-2023 12:51-0400 Body height 152.4 cm James Oberhauser DO Work Phone: [facility] 04-15-2023 12:51-0400 Body mass index (BMI) [Ratio] 42.77 kg/m2 James Oberhauser DO Work Phone: [facility] 04-15-2023 12:51-0400 Body weight 99.34 kg James Oberhauser DO Work Phone: [facility] 04-15-2023 12:51-0400 Diastolic blood pressure 82 mm[Hg] James Oberhauser DO Work Phone: [facility] 04-15-2023 12:51-0400 Heart rate 76 /min James Oberhauser DO Work Phone: [facility] 04-15-2023 12:51-0400 Systolic blood pressure 126 mm[Hg] James Oberhauser DO Work Phone: [facility] 08-21-2022 15:19-0500 Body height 152.4 cm James L Oberhauser Work Phone: [facility] Work Phone: 08-21-2022 15:19-0500 Body mass index (BMI) [Ratio] 44.72 kg/m2 James L Oberhauser Work Phone: [facility] Work Phone: 08-21-2022 15:19-0500 Body surface area Derived from formula 1.98 m2 James L Oberhauser Work Phone: [facility] Work Phone: 08-21-2022 15:19-0500 Body weight 103.87 kg James L Oberhauser Work Phone: [facility] Work Phone: 08-21-2022 15:19-0500 Diastolic blood pressure 86 mm[Hg] James L Oberhauser Work Phone: [facility] Work Phone: 08-21-2022 15:19-0500 Heart rate 91 /min James L Oberhauser Work Phone: [facility] Work Phone: 08-21-2022 15:19-0500 Systolic blood pressure 150 mm[Hg] James L Oberhauser Work Phone: [facility] Work Phone: 07-14-2022 11:30-0500 Body height 152.4 cm James L Oberhauser Work Phone: [facility] 3 DO Work Phone: 07-14-2022 11:30-0500 Body mass index (BMI) [Ratio] 44.72 kg/m2 James L Oberhauser Work Phone: [facility] 3 DO Work Phone: 07-14-2022 11:30-0500 Body surface area Derived from formula 1.98 m2 James L Oberhauser Work Phone: [facility] 3 DO Work Phone: 07-14-2022 11:30-0500 Body weight 103.87 kg James L Oberhauser Work Phone: [facility] 3 DO Work Phone: 07-14-2022 11:30-0500 Diastolic blood pressure 90 mm[Hg] James L Oberhauser Work Phone: [facility] 3 DO Work Phone: 07-14-2022 11:30-0500 Heart rate 106 /min James L Oberhauser Work Phone: [facility] 3 DO Work Phone: 07-14-2022 11:30-0500 SaO2% (BldA) [Mass fraction] 98 % James L Oberhauser Work Phone: [facility] 3 DO Work Phone: 07-14-2022 11:30-0500 Systolic blood pressure 160 mm[Hg] James L Oberhauser Work Phone: [facility] 3 DO Work Phone: 06-12-2022 15:23-0400 Body mass index (BMI) [Ratio] 44.37 kg/m2 James L Oberhauser Work Phone: ZB-Urjjcgw-Tkiaayj 230 DO Work Phone: 06-12-2022 15:23-0400 Body surface area Derived from formula 1.97 m2 James L Oberhauser Work Phone: EW-Moryamj-Yhmvfni 230 DO Work Phone: 06-12-2022 15:23-0400 Body weight 103.06 kg James L Oberhauser Work Phone: AE-Fmjtgrd-Xjdilns 230 DO Work Phone: 06-12-2022 15:23-0400 Diastolic blood pressure 110 mm[Hg] James L Oberhauser Work Phone: GX-Mggpcnn-Itrigpp 230 DO Work Phone: 06-12-2022 15:23-0400 Heart rate 88 /min James L Oberhauser Work Phone: KV-Wgqvoip-Dechvcn 230 DO Work Phone: 06-12-2022 15:23-0400 SaO2% (BldA) [Mass fraction] 97 % James L Oberhauser Work Phone: SL-Pzwzrhy-Efkfxwx 230 DO Work Phone: 06-12-2022 15:23-0400 Systolic blood pressure 180 mm[Hg] James L Oberhauser Work Phone: HU-Nknvina-Kpvwtza 230 DO Work Phone: 05-29-2022 09:53-0400 Body height 152.4 cm James L Oberhauser Work Phone: EU-Oaxfier-Vtlxvky 230 DO Work Phone: 05-29-2022 09:53-0400 Body mass index (BMI) [Ratio] 44.14 kg/m2 James L Oberhauser Work Phone: RR-Upldqwy-Nlurgqj 230 DO Work Phone: 05-29-2022 09:53-0400 Body surface area Derived from formula 1.97 m2 James L Oberhauser Work Phone: WA-Blkqemz-Hrbgkhi 230 DO Work Phone: 05-29-2022 09:53-0400 Body weight 102.51 kg James L Oberhauser Work Phone: EB-Mcccjko-Jrvidlj 230 DO Work Phone: 05-29-2022 09:53-0400 Diastolic blood pressure 100 mm[Hg] James L Oberhauser Work Phone: ON-Esuydpz-Sviggnf 230 DO Work Phone: 05-29-2022 09:53-0400 Heart rate 95 /min James L Oberhauser Work Phone: NT-Nfkqofo-Qjddnpb 230 DO Work Phone: 05-29-2022 09:53-0400 Systolic blood pressure 174 mm[Hg] James L Oberhauser Work Phone: DH-Iuyexmi-Mnqtbtv 230 DO Work Phone: 05-23-2022 10:34-0400 Body mass index (BMI) [Ratio] 44.49 kg/m2 James L Oberhauser Work Phone: [facility] 3 DO Work Phone: 05-23-2022 10:34-0400 Body surface area Derived from formula 1.97 m2 James L Oberhauser Work Phone: [facility] 3 DO Work Phone: 05-23-2022 10:34-0400 Body weight 103.33 kg James L Oberhauser Work Phone: [facility] 3 DO Work Phone: 05-23-2022 10:34-0400 Diastolic blood pressure 120 mm[Hg] James L Oberhauser Work Phone: [facility] 3 DO Work Phone: 05-23-2022 10:34-0400 Heart rate 90 /min James L Oberhauser Work Phone: [facility] 3 DO Work Phone: 05-23-2022 10:34-0400 SaO2% (BldA) [Mass fraction] 98 % James L Oberhauser Work Phone: [facility] 3 DO Work Phone: 05-23-2022 10:34-0400 Systolic blood pressure 204 mm[Hg] James L Oberhauser Work Phone: FG[facility]Bikpylygog[facility] 3 DO Work Phone: 05-16-2022 13:24-0400 Body height 152.4 cm James L Oberhauser Work Phone: [facility] Work Phone: 05-16-2022 13:24-0400 Body mass index (BMI) [Ratio] 44.33 kg/m2 James L Oberhauser Work Phone: [facility] Work Phone: 05-16-2022 13:24-0400 Body surface area Derived from formula 1.97 m2 James L Oberhauser Work Phone: [facility] Work Phone: 05-16-2022 13:24-0400 Body weight 102.97 kg James L Oberhauser Work Phone: [facility] Work Phone: 05-16-2022 13:24-0400 Diastolic blood pressure 97 mm[Hg] James L Oberhauser Work Phone: [facility] Work Phone: 05-16-2022 13:24-0400 Heart rate 92 /min James L Oberhauser Work Phone: [facility] Work Phone: 05-16-2022 13:24-0400 Systolic blood pressure 175 mm[Hg] James L Oberhauser Work Phone: [facility] Work Phone: 03-20-2022 15:33-0400 Body height 152.4 cm James L Oberhauser Work Phone: [facility] Work Phone: 03-20-2022 15:33-0400 Body mass index (BMI) [Ratio] 43.94 kg/m2 James L Oberhauser Work Phone: [facility] Work Phone: 03-20-2022 15:33-0400 Body surface area Derived from formula 1.96 m2 James L Oberhauser Work Phone: [facility] Work Phone: 03-20-2022 15:33-0400 Body weight 102.06 kg James L Oberhauser Work Phone: [facility] Work Phone: 03-20-2022 15:33-0400 Diastolic blood pressure 100 mm[Hg] James L Oberhauser Work Phone: [facility] Work Phone: 03-20-2022 15:33-0400 Heart rate 98 /min James L Oberhauser Work Phone: [facility] Work Phone: 03-20-2022 15:33-0400 Systolic blood pressure 178 mm[Hg] James L Oberhauser Work Phone: [facility] Work Phone: 09-10-2021 14:41-0500 Body height 170.18 cm James L Oberhauser Work Phone: [facility] Work Phone: 09-10-2021 14:41-0500 Body mass index (BMI) [Ratio] 36.34 kg/m2 James L Oberhauser Work Phone: [facility] Work Phone: 09-10-2021 14:41-0500 Body surface area Derived from formula 2.15 m2 James L Oberhauser Work Phone: [facility] Work Phone: 09-10-2021 14:41-0500 Body temperature 97.8 [degF] James L Oberhauser Work Phone: [facility] Work Phone: 09-10-2021 14:41-0500 Body weight 105.24 kg James L Oberhauser Work Phone: [facility] Work Phone: 09-10-2021 14:41-0500 Diastolic blood pressure 95 mm[Hg] James L Oberhauser Work Phone: [facility] Work Phone: 09-10-2021 14:41-0500 Heart rate 94 /min James L Oberhauser Work Phone: [facility] Work Phone: 09-10-2021 14:41-0500 Systolic blood pressure 149 mm[Hg] James L Oberhauser Work Phone: [facility] Work Phone: 10-23-2020 18:11-0400 BMI (Body Mass Index) 35.77 kg/m2 [facility] 10-23-2020 18:11-0400 Body Temperature 98.2 [degF] [facility] 10-23-2020 18:11-0400 Body weight 102.06 kg [facility] 10-23-2020 18:11-0400 BP Diastolic 101 mm[Hg] [facility] 10-23-2020 18:11-0400 BP Systolic 159 mm[Hg] [facility] 10-23-2020 18:11-0400 Height 168.9 cm [facility] 10-23-2020 18:11-0400 Pulse (Heart Rate) 92 /min [facility] 10-23-2020 18:11-0400 Pulse Oximetry 99 % [facility] 10-23-2020 18:11-0400 Respiratory Rate 18 /min [facility] Encounters Encounter Date Encounter Type Care Provider Facility Start: 06-19-2025 Evaluation and manag ement of inpatient [facility] Facility:[facility] Start: 06-19-2025 ambulatory [facility] Facility:[facility] Start: 06-16-2025 Encounter for other preprocedural examination Yair Benedict [facility] Start: 06-16-2025 End: 06-16-2025 Emergency department patient visit Bren Kowalski DO Work Phone: [facility] Comment on above: UTI (urinary tract i nfection), uncomplicated (Primary Dx); Periumbilical abdominal pain Start: 06-12-2025 End: 06-13-2025 ambulatory [facility] Facility:[facility] Start: 06-12-2025 ambulatory [facility] Facility:[facility] Start: 06-08-2025 End: 06-08-2025 ambulatory [facility] Facility:[facility] Start: 06-07-2025 End: 06-08-2025 ambulatory [facility] Start: 06-07-2025 End: 06-07-2025 Encounter for other preprocedural examination [facility] Start: 06-07-2025 End: 06-07-2025 Office outpatient visit 15 minutes Suzannelacey Arroyo MANGLE ROLL OPERATOR-TARGET WORKER Work Phone: [facility] Comment on above: Primary hypertension (Primary Dx); Hyponatremia; Pre-operative clearance Start: 06-07-2025 End: 06-07-2025 Preoperative state Suzanne Jasmin JerezCruz MANGLE ROLL OPERATOR-TARGET WORKER Work Phone: [facility] Work Phone: Start: 05-23-2025 End: 05-23-2025 ambulatory [facility] Facility:[facility] Start: 04-19-2025 End: 04-19-2025 Office outpatient visit 25 minutes Lynn Koch MANGLE ROLL OPERATOR-TARGET WORKER Work Phone: [facility] Comment on above: Type 2 diabetes anny itus without complication, without long- term current use of insulin (Primary Dx); Primary hypertension Start: 04-19-2025 End: 04-19-2025 ambulatory LYNN Shaw [facility] Ambulatory Start: 03-23-2025 End: 03-23-2025 ambulatory Suzanne Arroyo Facility:[facility] Start: 03-16-2025 ambulatory Suzanne Arroyo Facility:[facility] Start: 03-16-2025 End: 03-16-2025 ambulatory Suzanne Arroyo Facility:[facility] Start: 03-07-2025 End: 03-07-2025 ambulatory Suzanne Arroyo Facility:[facility] Start: 02-24-2025 End: 02-24-2025 ambulatory Suzanne Cruz Facility:[facility] Start: 02-03-2025 End: 02-03-2025 ambulatory Suzanne Arroyo Facility:[facility] Start: 01-05-2025 End: 01-05-2025 ambulatory Demario Reyes Facility:[facility] Start: 12-13-2024 End: 12-13-2024 ambulatory Suzanne Cruz Facility:[facility] Start: 11-23-2024 End: 11-23-2024 ambulatory Demario Reyes Facility:[facility] Start: 10-24-2024 End: 10-24-2024 Subsequent hospital visit by physician Rad External Film EF RAD EXTERNAL FILM [facility]IRTUAL Comment on above: Arrived Start: 10-24-2024 End: 10-24-2024 ambulatory SUZANNE Castellanos CRUZ [facility] Start: 10-13-2024 End: 10-13-2024 ambulatory Demario Reyes Facility:[facility] Start: 10-11-2024 End: 10-11-2024 Subsequent hospital visit by physician Jadon [facility] Comment on above: Encounter for screen ing mammogram for malignant neoplasm of breast Start: 10-11-2024 End: 10-11-2024 ambulatory SUZANNE Castellanos [facility] Start: 09-28-2024 End: 09-28-2024 Office outpatient visit 25 minutes Suzanne Arroyo MANGLE ROLL OPERATOR-TARGET WORKER Work Phone: [facility] Comment on above: Screening for colon cancer (Primary Dx); Folliculitis; Encounter for screening mammogram for malignant neoplasm of breast; Acute low back pain without sciatica, unspecified back pain laterality Start: 09-28-2024 End: 09-28-2024 ambulatory SUZANNE B [facility] Amb[facility] Start: 09-27-2024 End: 09-27-2024 ambulatory Demario Wagner See Facility:[facility] Start: 07-26-2024 End: 07-26-2024 ambulatory Demario Wagner See Facility:[facility] Start: 07-08-2024 End: 07-08-2024 Office outpatient new 45 minutes Odell Mock PA-C Work Phone: [facility] Comment on above: Acute cystitis witho ut hematuria (Primary Dx); Dysuria Start: 07-08-2024 End: 07-08-2024 ambulatory [facility] Kristy [facility] Start: 06-23-2024 End: 06-23-2024 Office outpatient visit 15 minutes Emilie CASTREJON, GAMAL Work Phone: [facility] Comment on above: Hyponatremia (Primar y Dx); Primary hypertension Start: 06-23-2024 End: 06-23-2024 ambulatory EMILIE CORNELIUS [facility] Ambulatory Start: 06-20-2024 End: 06-20-2024 ambulatory JAMES L [facility] Start: 06-17-2024 End: 06-17-2024 Emergency department patient visit Franko Murray MD Work Phone: [facility] Comment on above: Urinary tract infect ion without hematuria, site unspecified (Primary Dx); Hyponatremia Start: 04-25-2024 End: 04-25-2024 Patient encounter procedure Josh ACSTREJON Work Phone: [facility] Comment on above: Acute bronchitis, un specified organism (Primary Dx) Start: 04-13-2024 End: 04-13-2024 Patient encounter procedure Josh CASTREJON Work Phone: [facility] Comment on above: Other infective acut e otitis externa of left ear (Primary Dx) Start: 04-15-2023 End: 04-15-2023 Office outpatient visit 25 minutes James Sahu DO Work Phone: [facility] Comment on above: Type 2 diabetes anny itus without complication, without long- term current use of insulin ([facility]) (Primary Dx); Recurrent major depressive disorder, in partial remission ([facility]); Seizures ([facility]); Primary insomnia; Acute diffuse otitis externa of left ear Start: 09-05-2022 Rx Renewal James Elliott user Work Phone: [facility] Work Phone: Start: 08-21-2022 FUV, Provider: James Sahu, Status: Pen, Time: 3:20 PM James Sahu Work Phone: [facility] Work Phone: Start: 08-21-2022 Office outpatient vi sit 25 minutes James Sahu Work Phone: [facility] Work Phone: Start: 08-21-[address] James Sahu Facility:[id number] Start: 08-20-2022 Chart Update James Robertserrossi user Work Phone: [facility] Work Phone: Start: 08-18-2022 Chart Update James Robertserrossi user Work Phone: [facility] Work Phone: Start: 08-14-2022 AUDIT James Robertserrossi user Work Phone: [facility] Work Phone: Start: 07-14-2022 Office outpatient vi sit 15 minutes James Sahu Work Phone: [facility] Dar[place] 3 DO Work Phone: Start: 07-14-2022 ambulatory Ms. Emilie Cornelius Fa cility:[id number] Start: 06-25-2022 Chart Update James L Oberha user Work Phone: L[facility] [place] 3 DO Work Phone: Start: 06-13-2022 Chart Update James L Oberha user Work Phone: JL[facility]obvpgbeif[facility] [place] 3 DO Work Phone: Start: 06-12-2022 FUV, Provider: Emilie Cornelius, Status: Pen, Time: 3:30 PM James Kristy Oberhauser Work Phone: [facility] [place] 3 DO Work Phone: Start: 06-12-2022 Office outpatient vi sit 15 minutes Jamesbety Robertserhauser Work Phone: BO-Eichxoa-Ubenxuq 230 DO Work Phone: Start: 06-12-2022 ambulatory Ms. Emilie Cornelius Fa cility:[id number] Start: 06-09-2022 AUDIT James L Oberha user Work Phone: [facility] [place] 3 DO Work Phone: Start: 05-29-2022 AUDIT James L Oberha user Work Phone: [facility] Work Phone: Start: 05-29-2022 Office outpatient vi sit 15 minutes Jamesbety Robertserhauser Work Phone: FG-Kfaocit-Dpxdqfu 230 DO Work Phone: Start: 05-29-2022 ambulatory . Emilie Cornelius Fa cility:[id number] Start: 05-23-2022 Office outpatient vi sit 15 minutes James Robertserhauser Work Phone: [facility] [place] 3 DO Work Phone: Start: 05-23-[address] James Sahu Facility:[id number] Start: 05-19-2022 AUDIT James Taterossi user Work Phone: [facility] Work Phone: Start: 05-16-[address] James Sahu Facility:[id number] Start: 05-16-2022 FUHOSP, Provider: James Sahu, Status: Pen, Time: 1:20 PM James Sahu Work Phone: YZ[facility]Fvnoxfbbft[facility] [place] 3 DO Work Phone: Start: 05-16-2022 Office outpatient vi sit 25 minutes James Sahu Work Phone: [facility] Work Phone: Start: 05-14-2022 Chart Update James Elliott user Work Phone: [facility] [place] 3 DO Work Phone: Start: 04-30-2022 AUDIT James Taterossi user Work Phone: [facility] [place] 3 DO Work Phone: Start: 04-28-2022 End: 04-30-2022 Evaluation and management of inpatient Dr. James Sahu Facility:[id number] Start: 04-11-[address] James Sahu Facility:[id number] Start: 04-11-2022 Patient encounter procedure James Sahu Work Phone: [facility] Work Phone: Start: 03-20-[address] James Sahu Facility:[id number] Start: 12-06-2021 AUDIT James Elliott user Work Phone: [facility] Work Phone: Start: 12-03-2021 Chart Update James Elliott user Work Phone: [facility] Work Phone: Start: 09-10-2021 Office outpatient ne w 45 minutes James Kristy Adelina Work Phone: [facility] Work Phone: Start: 10-23-2020 End: 10-23-2020 Emergency department patient visit MALCOM SHEETS [facility] Start: 10-23-2020 End: 10-23-2020 Emergency department patient visit Malcom Sheets [place] Work Phone: [facility] Emergency Department Start: 09-28-2018 End: 09-28-2018 ambulatory [facility] Facility:[facility] Procedures Date Procedure Procedure Detail Performing [...] Study Interpretation of outside study Suzanne Arroyo MANGLE ROLL OPERATOR-TARGET WORKER Work Phone: Start: 10-11-2024 Mammography Rad Film [...] SARS-COV-2/FLU/ RSV PCR SYMPTOMATIC Josh Olivares Kimberly MANGLE ROLL OPERATOR-TARGET WORKER Work Phone: Start: 02-29-2024 Lipid 1996 panel - S oma or Plasma Josh Ayalablossom MANGLE ROLL OPERATOR-TARGET WORKER Work Phone: Start: 08-18-2022 Lipid 1996 panel - S oma or Plasma James Sahu DO Work Phone: Start: 10-23-2020 Iaadiadoo influenza [facility] Start: 10-23-2020 COVID-19, MOLECULAR Gar tatiana Misaelbety Sheets Jose Work Phone: Start: 10-23-2020 Urnls dip stick/tabl et rgnt auto w/o microscopy [facility] Start: 10-23-2020 Blood gases any comb ination ph pco2 po2 co2 hco3 [facility] Start: 10-23-2020 Albumin serum plasma /whole blood [facility] Start: 10-23-2020 Blood count complete auto&auto difrntl wbc Malcom Sheets Jose Work Phone: Start: 12-31-2017 Mammography James gordon DO Work Phone: Start: 12-19-2016 Lumbar puncture CHAOHUA SUKHDEV Procedure on back James moralez Work Phone: Plan of Treatment Date Care Activity Detail Author Start: 10-11-2027 Screening for malign ant neoplasm of colon [facility] Start: 10-11-2025 Screening for malign ant neoplasm of breast Mammogram [facility] Start: 09-07-2025 End: 09-07-2025 Patient encounter procedure 09/07/2025 10:50 AM EST Office Visit [facility] [address] [facility] [address] [place] [address] Suzanne Arroyo, MANGLE ROLL OPERATOR-TARGET WORKER [address] [facility], Dar[place] [address] [place] [address] [facility] Start: 07-19-2025 Hemoglobin A1c measurement Diabetes: Hemoglobin A1C [facility] Start: 06-07-2025 End: 06-07-2026 CBC W Auto Differential panel - Blood CBC and Auto Differential Lab Routine Pre-operative clearance Expected: 06/07/2025 (Approximate), Expires: 06/07/2026 [facility] Work Phone: Comment on above: Expected: 06/07/2025 (Approximate), Expires: 06/07/2026 Start: 06-07-2025 End: 06-07-2026 Comprehensive metabolic 2000 panel - Serum or Plasma Comprehensive metabolic panel Lab Routine Hyponatremia Expected: 06/07/2025 (Approximate), Expires: 06/07/2026 [facility] Service [facility] Work Phone: Comment on above: Expected: 06/07/2025 (Approximate), Expires: 06/07/2026 Start: 06-07-2025 End: 06-07-2026 Prothrombin time (PT) Protime-INR Lab Routine Pre-operative clearance Expected: 06/07/2025 (Approximate), Expires: 06/07/2026 [facility] Work Phone: Comment on above: Expected: 06/07/2025 (Approximate), Expires: 06/07/2026 Start: 04-19-2025 End: 04-19-2026 Comprehensive metabolic 2000 panel - Serum or Plasma [facility] Work Phone: Comment on above: Expected: 04/19/2025 (Approximate), Expires: 04/19/2026 Start: 04-19-2025 End: 04-19-2026 Hemoglobin A1c/Hemoglobin.total in Blood [facility] Service Area Work Phone: Comment on above: Expected: 04/19/2025 (Approximate), Expires: 04/19/2026 Start: 04-19-2025 End: 04-19-2026 TSH with reflex to Free T4 if abnormal [facility] Work Phone: Comment on above: Expected: 04/19/2025 (Approximate), Expires: 04/19/2026 Start: 04-10-2025 COVID-19 Vaccine ( season) COVID-19 Vaccine () [facility] Start: 04-10-2025 COVID-19 Vaccine ( season) COVID-19 Vaccine () [facility] Start: 04-10-2025 Influenza vaccination Influenza Vacc ine (#1) [facility] Start: 04-06-2025 End: 04-06-2025 Patient encounter procedure [facility] Start: 03-15-2025 Hemoglobin A1c measurement Diabetes: Hemoglobin A1C [facility] Start: 03-10-2025 Influenza vaccination Influenza Vacc ine (#1) [facility] Start: 02-28-2025 Lipid panel Lipid Panel [facility] Start: 10-11-2024 End: 10-11-2024 Patient encounter procedure 10/11/2024 2:00 PM EST Appointment [address] [address] [facility] Start: 09-28-2024 End: 09-28-2025 Cologuard colon cancer screening Cologuard colon cancer screening Lab Routine Screening for colon cancer Expected: 09/28/2024 (Approximate), Expires: 09/28/2025 [facility] Service Area Work Phone: Comment on above: Expected: 09/28/2024 (Approximate), Expires: 09/28/2025 Start: 09-28-2024 End: 11-26-2025 DBT Breast - bilateral BI mammo bilateral screening tomosynthesis Imaging Routine Encounter for screening mammogram for malignant neoplasm of breast Expected: 09/28/2024, Expires: 11/26/2025 [facility] Work Phone: Comment on above: Expected: 09/28/2024 , Expires: 11/26/2025 Start: 09-20-2024 Hemoglobin A1c measurement Diabetes: Hemoglobin A1C [facility] Start: 07-26-2024 End: 07-26-2024 Patient encounter procedure 07/26/2024 12:40 PM EST Office Visit [facility] [address] [place] [id number] James Sahu DO [address] [facility] [place] [address] [facility] Start: 07-23-2024 End: 06-23-2025 Basic metabolic 2000 panel - Serum or Plasma Basic metabolic panel Lab Routine Hyponatremia Expected: 07/23/2024 (Approximate), Expires: 06/23/2025 [facility] Service Area Work Phone: Comment on above: Expected: 07/23/2024 (Approximate), Expires: 06/23/2025 Start: 07-21-2024 End: 07-21-2024 Patient encounter procedure 07/21/2024 2:00 PM EST Office Visit [facility] Medical Office Building [address] [place] [id number] Emilie Cornelius, MANGLE ROLL OPERATOR-TARGET WORKER, [facility] [address] [facility] [address] [place] [address] [facility] Office Building Start: 06-09-2024 End: 06-09-2024 Patient encounter procedure 06/09/2024 1:20 PM EDT Office Visit [facility] [address] [place] [phone] James Sahu DO [address] [facility] [place] [address] [facility] Start: 05-31-2024 Hemoglobin A1c measurement Diabetes: Hemoglobin A1C [facility] Start: 04-10-2024 COVID-19 Vaccine ( season) COVID-19 Vaccine ( season) [facility] Start: 04-10-2024 COVID-19 Vaccine () COVID-19 Vaccine ( season) [facility] Start: 04-10-2024 Influenza vaccination Influenza Vacc ine (#1) [facility] Start: 08-18-2023 Lipid panel Lipid Panel [facility] Start: 06-11-2023 Hemoglobin A1c measurement Diabetes: Hemoglobin A1C [facility] Start: 04-15-2023 End: 04-15-2024 Comprehensive metabolic 2000 panel - Serum or Plasma Comprehensive Metabolic Panel Lab Routine Type 2 diabetes mellitus without complication, without long-term current use of insulin (CMS/HCC) Expected: 04/15/2023 (Approximate), Expires: 04/15/2024 [facility] Work Phone: Comment on above: Expected: 04/15/2023 (Approximate), Expires: 04/15/2024 Start: 04-15-2023 End: 04-15-2024 Hemoglobin A1c/Hemoglobin.total in Blood Hemoglobin A1C Lab Routine Type 2 diabetes mellitus without complication, without long-term current use of insulin (CMS/HCC) Expected: 04/15/2023 (Approximate), Expires: 04/15/2024 [facility] Service Area Work Phone: Comment on above: Expected: 04/15/2023 (Approximate), Expires: 04/15/2024 Start: 04-15-2023 End: 04-15-2024 Lipid 1996 panel - Serum or Plasma Lipid Panel Lab Routine Type 2 diabetes mellitus without complication, without long-term current use of insulin (CMS/HCC) Expected: 04/15/2023 (Approximate), Expires: 04/15/2024 [facility] Work Phone: Comment on above: Expected: 04/15/2023 (Approximate), Expires: 04/15/2024 Start: 04-10-2023 Influenza vaccination Influenza Vacc ine (#1) [facility] Start: 11-20-2022 FUV, Provider: James Sahu, Status: Pen, Time: 10:40 AM FUV, Provider: James Sahu, Status: Pen, Time: 10:40 AM [facility] Work Phone: Start: 10-02-2022 FUV, Provider: James Sahu, Status: Pen, Time: 3:00 PM FUV, Provider: James Sahu, Status: Pen, Time: 3:00 PM [facility] Work Phone: Start: 08-21-2022 FUV, Provider: James Sahu, Status: Pen, Time: 3:20 PM FUV, Provider: James Sahu, Status: Pen, Time: 3:20 PM [facility] Work Phone: Start: 08-18-2022 FUV, Provider: Emilie Cornelius, Status: Pen, Time: 10:00 AM FUV, Provider: Emilie Cornelius, Status: Pen, Time: 10:00 AM [facility] 3 DO Work Phone: Start: 07-10-2022 FUV, Provider: Emilie Cornelius, Status: Pen, Time: 2:15 PM FUV, Provider: Emilie Cornelius, Status: Pen, Time: 2:15 PM [facility] 230 DO Work Phone: Start: 06-12-2022 FUV, Provider: Emilie Cornelius, Status: Pen, Time: 3:30 PM FUV, Provider: Emilie Cornelius, Status: Pen, Time: 3:30 PM [facility] 230 DO Work Phone: Start: 05-29-2022 FUV, Provider: Emilie Cornelius, Status: Pen, Time: 10:00 AM FUV, Provider: Emilie Cornelius, Status: Pen, Time: 10:00 AM [facility] 3 DO Work Phone: Start: 05-23-2022 NPV, Provider: Emilie Cornelius, Status: Pen, Time: 10:30 AM NPV, Provider: Emilie Cornelius, Status: Pen, Time: 10:30 AM [facility] [employer] Work Phone: Start: 05-19-2022 NPV, Provider: Tom Cornelius, Status: Pen, Time: 10:30 AM NPV, Provider: Tom Cornelius, Status: Pen, Time: 10:30 AM [facility] [place] 3 DO Work Phone: Start: 05-16-2022 FUVHOSP, Provider: James Sahu, Status: Pen, Time: 1:20 PM FUVHOSP, Provider: James Sahu, Status: Pen, Time: 1:20 PM YU[facility]raunuluqk[facility] [place] 3 DO Work Phone: Start: 12-24-2021 Urine screening for protein Diabetes: Urine Protein Screening [facility] Start: 12-10-2021 FUV, Provider: James Sahu, Status: Pen, Time: 2:20 PM FUV, Provider: James Sahu, Status: Pen, Time: 2:20 PM [facility] Work Phone: Start: 2019 Zoster Vaccines (1 of 2) Zoste r Vaccines (1 of 2) [facility] Start: 12-31-2018 Screening for malign ant neoplasm of breast Mammogram [facility] Start: 1991 DTaP/Tdap/Td Vaccine s (1 - Tdap) DTaP/Tdap/Td Vaccines (1 - Tdap) [facility] Start: 1990 Screening for malign ant neoplasm of cervix [facility] Start: 02-14-1988 Hepatitis B Vaccines (1 of 3 - 19+ 3-dose series) Hepatitis B Vaccines (1 of 3 - 19+ 3-dose series) [facility] Start: 02-14-1988 Pneumococcal vaccination Pneum ococcal Vaccine (1 of 2 - PCV) [facility] Start: 1987 Hepatitis C screening Hepatitis C Sc reening [facility] Start: 1979 Diabetic foot examination Diabetes: Foot Exam [facility] Start: 1979 Glaucoma screening Diabetes: R etinopathy Screening [facility] Start: 1975 Pneumococcal Vaccine : Pediatrics (0 to 5 Years) and At-Risk Patients (6 to 64 Years) (1 - PCV) Pneumococcal Vaccine: Pediatrics (0 to 5 Years) and At-Risk Patients (6 to 64 Years) (1 - PCV) [facility] Start: 1975 Pneumococcal Vaccine : Pediatrics (0 to 5 Years) and At-Risk Patients (6 to 64 Years) (1 of 2 - PCV) Pneumococcal Vaccine: Pediatrics (0 to 5 Years) and At-Risk Patients (6 to 64 Years) (1 of 2 - PCV) [facility] Start: 1970 MMR Vaccines (1 of 1 - Standard series) MMR Vaccines (1 of 1 - Standard series) [facility] Start: 1969 COVID-19 Vaccine (#1) COVID-19 Vacci ne (#1) [facility] Start: 1969 Hepatitis B Vaccines (1 of 3 - 3-dose series) Hepatitis B Vaccines (1 of 3 - 3-dose series) [facility] Start: 1969 HIV screening HIV Screening [facility] Start: 1969 Screening for malign ant neoplasm of colon [facility] Start: 1969 Yearly Adult Physical Yearly Adult P hysical [facility] End: 06-17-2024 Bacteria identified in Urine by Culture [facility] Work Phone: Comment on above: Once (Lab) for 1 Occ urrences starting 06/17/2024 until 06/17/2024 Bacteria identified in Urine by Culture Urine Culture Microbiology Routine Acute cystitis without hematuria Dysuria 07/08/2024 10:51 AM EST [facility] Service Area Work Phone: End: 06-16-2025 Bacteria identified in Urine by Culture Urine Culture Microbiology Routine Once (Lab) for 1 Occurrences starting 06/16/2025 until 06/16/2025 [facility] Work Phone: Comment on above: Once (Lab) for 1 Occ urrences starting 06/16/2025 until 06/16/2025 Bacteria identified in Urine by Culture Urine Culture Microbiology STAT 06/16/2025 1:05 AM EST [facility] Work Phone: End: 10-11-2024 DBT Breast - bilateral [facility] Service Area Work Phone: Comment on above: Once for 1 Occurrenc es starting 10/11/2024 until 10/11/2024 End: 06-17-2024 Extra Urine [employer] Work Phone: Comment on above: Once for 1 Occurrenc es starting 06/17/2024 until 06/17/2024 End: 06-16-2025 Extra Urine [employer] Tube Extra Urine [employer] Lab Timed Once for 1 Occurrences starting 06/16/2025 until 06/16/2025 [facility] Work Phone: Comment on above: Once for 1 Occurrenc es starting 06/16/2025 until 06/16/2025 End: 06-17-2024 Urinalysis complete W Reflex Culture panel - Urine [facility] Service Area Work Phone: Comment on above: Once (Lab) for 1 Occ urrences starting 06/17/2024 until 06/17/2024 End: 06-16-2025 Urinalysis complete W Reflex Culture panel - Urine Urinalysis with Reflex Culture Lab STAT Once (Lab) for 1 Occurrences starting 06/16/2025 until 06/16/2025 [facility] Service Area Work Phone: Comment on above: Once (Lab) for 1 Occ urrences starting 06/16/2025 until 06/16/2025 Urinalysis complete W Reflex Culture panel - Urine Urinalysis with Reflex Culture Lab STAT 06/16/2025 1:05 AM [facility] Work Phone: Payers Date Payer Category Payer Managed Care (Private) [id number] [id number] 2022 Unknown 2018 Self-pay 2014 Unknown [employer] PPO [id number] 2014-Present [id number] 2014 Unknown [id number] 1969 Unknown [id number] 02 1969 Unknown [id number] 069 1969 Unknown [id number] 56 1969 Unknown [id number] 56 1969 Unknown [id number] 56 1969 Unknown [id number] 56 1969 Unknown [id number] 56 1969 Unknown [id number] [id number] 56 1969 Unknown [id number] 56 1969 Unknown [id number] 56 1969 Unknown [id number] 245 1970 Unknown [id number] 2.16.840.1.755472.3.579.2.1 245 1970 Unknown [id number] 2.16.840.1.899588.3.579.2.1 244 1970 Unknown [id number] 2.16.840.1.784167.3.579.2.1 244 1969 Unknown [id number] 2.16.840.1.562573.3.579.2.1 244 1969 Unknown [id number] 2.16.840.1.974130.3.579.2.1 244 1970 Unknown [id number] 2.16.840.1.924736.3.579.2.1 243 1970 Unknown [id number] 2.16.840.1.397535.3.579.2.1 243 1970 Unknown [id number] 2.16.840.1.030944.3.579.2.1 243 Unknown [id number] 2.16.840.1.353485.3.579.2.9 21 Unknown [id number] 2.16.840.1.049216.3.579.2.4 62 Unknown [id number] 2.16.840.1.361172.3.579.2.4 62 Unknown [id number] 2.16.840.1.542733.3.579.2.4 62 Unknown [id number] 2.16.840.1.077729.3.579.2.4 62 Unknown [id number] 2.16.840.1.897202.3.579.2.4 62 Unknown [id number] 2.16.840.1.900620.3.579.2.4 62 Unknown [id number] 2.16.840.1.167590.3.579.2.4 62 Unknown [id number] 2.16.840.1.409381.3.579.2.4 62 Unknown [id number] 2.16.840.1.247099.3.579.2.4 62 Unknown [id number] 2.16.840.1.504768.3.579.2.4 62 Unknown [id number] 2.16.840.1.542030.3.579.2.4 62 Unknown [id number] 2.16.840.1.917719.3.579.2.4 62 Unknown [id number] 2.16.840.1.247136.3.579.2.4 62 Unknown [id number] 2.16.840.1.234481.3.579.2.4 62 Unknown [id number] 2.16.840.1.001069.3.579.2.4 62 Unknown [id number] 2.16.840.1.667182.3.579.2.4 62 Unknown [id number] 2.16.840.1.318933.3.579.2.4 62 Unknown [id number] 2.16.840.1.493519.3.579.2.4 62 Unknown [id number] 2.16.840.1.046943.3.579.2.4 62 Unknown [id number] 2.16.840.1.188329.3.579.2.4 62 Unknown [id number] 2.16.840.1.211572.3.579.2.4 62 Unknown [id number] 2.16.840.1.691186.3.579.2.4 62 Unknown [id number] 2.16.840.1.947445.3.579.2.4 62 Unknown [id number] 2.16.840.1.283894.3.579.2.4 62 Unknown [id number] 2.16.840.1.282841.3.579.2.4 62 Unknown [id number] 2.16.840.1.837288.3.579.2.4 62 Unknown [id number] 2.16.840.1.077310.3.579.2.4 62 Unknown [id number] 2.16.840.1.592127.3.579.2.4 62 Social History Date Type Detail Facility Unknown if ever smoked [facility] Start: 10-23-2020 End: 12-01-2023 Tobacco smoking status NHIS Current every day smoker [facility] History of tobacco use Cigarette Smoker [facility] Start: 10-23-2020 End: 06-07-2025 Cigarettes smoked current (pack per day) - Reported [facility] Start: 10-23-2020 End: 06-07-2025 Alcohol intake Current drinker of alcohol (finding) [facility] Start: 1970 Sex Assigned At Not on file [facility] Start: 04-03-2024 End: 10-11-2024 Exposure to SARS-CoV-2 (event) Not sure [facility] Start: 04-15-2023 End: 06-23-2024 Tobacco use and exposure Smokeless tobacco non-user [facility] Work Phone: Start: 04-15-2023 End: 06-07-2025 Tobacco use panel [facility] Work Phone: Start: 06-23-2024 Tobacco smoking status NHIS Ex-smoker [facility] History of tobacco use [facility] Start: 1970 Sex assigned at Female [facility] Start: 10-11-2024 Gender identity Identifies as female gender (finding) [facility] Work Phone: Start: 10-11-2024 Sexual orientation Heterosexual (finding) [facility] Work Phone: Start: 04-19-2025 Alcohol Comment rarely [facility] Work Phone: Start: 07-05-2022 Sex Female [facility] Start: 07-05-2022 Sex Female (finding) [facility] Medical Equipment Procedure Code Equipment Code Equipment Origin al Text Equipment Identifier Dates twice a day. [id number] Start: 12-05-2021 2 strips 2 times a day as needed (Blood sugars). [id number] Start: 11-26-2023 TEST SUGARS 1-2 TIMES DAILY [id number] Start: 11-26-2023 2 strips once da grupo as needed (Blood sugars). [id number] Start: 06-21-2024 TEST SUGARS 2 TI MES DAILY [id number] Start: 06-21-2024 Functional Status Date Assessment Result Facility 06-16-2025 Functional status [facility] 06-16-2025 [facility] Work Phone: 06-16-2025 [place] - suicide s everity rating scale screener - recent [C-SSRS] [facility] Work Phone: 06-07-2025 Functional status 139/81 [facility] Work Phone: 06-07-2025 Vital signs 70 06/07/2025 10 :17 AM Emily Ochoa MA [facility] Work Phone: 06-07-2025 [facility] ionnaire 2 item (PHQ-2) [Reported] [facility] Work Phone: 06-07-2025 [facility] Work Phone: 04-19-2025 [facility] ionnaire 2 item (PHQ-2) [Reported] [facility] Work Phone: [facility] Work Phone: [facility] Clinical Notes 08-29-2021 to 06-19-2025 Bren Kowalski, DO - 06/16/2025 12:50 AM Brittany Kowalski, DO - 06/16/2025 12:50 AM LUCÍA Beebe - 06/07/2025 10:10 AM Kailee Koch APRN-ARMANDO - 04/19/2025 2:20 PM EDTAttachments Note Date & Type Note Facility 06-19-2025 Note [facility] Medical Records Department [address] [place] [address] History Physical Exam 06/19/252107 MR#: [id number] Acct: [id number] Name: REINIER MENDOZA Rep #: [id number] : 1970 55 From: Servando To MD PCP: Suzanne Cruz, HEAT TREATER HEAD-C Status:REG ER Location: ED HPI - General [...] since that time. She went to the [facility] and workup including CT at that time [...] floor and Dr. Wynn will be consulted. [facility] Medical History Lumbar stenosis with neurogenic [...] mg PO QHS BIPOLAR 05/26/2505/04 History omega 7-mfk-owh-fish oil 1,200 mg 2 cap PO DAILY [...] Verified 06/19/25 11: (more content not included)... [facility] 06-16-2025 Physician Emergency department Note HPI [...] Color, Urine Light-Yellow Appearance, Urine Clear Specific [place], Urine 1.011 pH, Urine 7.0 Protein, Urine [...] Abnormality Status --------- ------ Urinalysis with Reflex C...[[id number]] Abnormal Final result Extra Urine Childress Tube[[id number]] Please view results for these tests on [...] Randy Painter 06/16/2025 3:11 AM Dictation workstation: [id number] ED Course & MDM Diagnoses as of [...] Drug use: Never Bren Kowalski DO 06/16/25317 [facility] Work Phone: 06-16-2025 Emergency department Note [...] Color, Urine Light-Yellow Appearance, Urine Clear Specific [place], Urine 1.011 pH, Urine 7.0 Protein, Urine [...] Abnormality Status --------- ------ Urinalysis with Reflex C...[[id number]] Abnormal Final result Extra Urine Childress Tube[[id number]] Please view results for these tests on [...] Randy Painter 06/16/2025 3:11 AM Dictation workstation: [id number] ED Course & MDM Diagnoses as of [...] Kowalski DO 06/16/25317 documented in this encounter [facility] Work Phone: 06-12-2025 Note [facility] Medical Records Department [address] [place] [address] History Physical Exam 06/12/25 0716 MR#: [id number] Acct: [id number] Name: KAYLINREINIER Manjit Rep #: [id number] : 1970 55 From: Yair Benedict MD PCP: REGGIE Arias Status:[facility] Location: [place] [address] History and Physical Date of Admission: 06/12/25 MR#: [id number] Acct: [id number] Name: REINIER MENDOZA Rep #: [id number] : 1970 Provider: Dr. Yair Benedict MD Age/Sex: 55/F [place] [facility] [place]: Signed Intake Vital [...] TID PRN pain 05/26/25 06/08/25 History omega 9-yov-fhe-fish oil 1,200 mg 2 cap PO DAILY [...] you fallen in the past year?: Yes [facility] Medical History (Updated 06/08/25 @ 15:43 [...] by me, Dr. Yair Benedict MD 06/08/25 1831. Part of today???s visit was documented by Maliha Mckeon MA, acting as scribe. REINIER MENDOZA is a 55 year old F here today for lumbar spine pre op. She is scheduled for L2-4 anterior and posterior f (more content not included)... [facility] 06-07-2025 History of Present illness Narrative Subjective Patient ID: Reinier Mendoza is a 55 y.o. female who presents for Pre-op Exam (Scheduled for 06/12). HPI Here today for surgical clearance, surgery is scheduled for 06/[address] Wynn in [place] she is getting an L2-L4 fusion. In April her BP was elevated in the office and her coreg was increased to 12.5 BID. She follows with psych in [place] for bipolar, she tried to reduce her [...] for surgical clearance documented in this encounter [facility] Work Phone: 04-19-2025 History of Present [...] Father's Sister 37 documented in this encounter [facility] Work Phone: 09-28-2024 History of Present [...] diabetic eye exam, she is going to [facility] -Lab work ordered -February due for physical HTN -Continue nifedipine 90mg -Continue losartan 100 mg daily -CMP done today -Coreg 6.25mg daily Bipolar disease -Follows with psych every 2 months -Continue abilify, effexor, tegretol and lunesta documented in this encounter [facility] Work Phone: 07-08-2024 History of Present [...] hematuria [R30.0] Dysuria documented in this encounter [facility] Work Phone: 06-23-2024 Evaluation + Plan [...] and make further recommendations at that time [facility] Work Phone: 06-23-2024 Miscellaneous Notes Associated [...] at that time documented in this encounter [facility] Work Phone: 06-23-2024 History of Present [...] 06/23/24 2:41 PM documented in this encounter [facility] Work Phone: 06-23-2024 Instructions LUCÍA Campo DNP - 06/23/2024 2:30 PM EST 6 -16 ounce bottles of water a day Recheck labs in one month. documented in this encounter [facility] Work Phone: 06-17-2024 Hospital Discharge instructions [...] through Care Everywhere.Urinary Tract Infection, Adult ED (Mozambican)Hyponatremia (Mozambican)documented in this encounter [facility] Work Phone: 04-25-2024 History of Present [...] Review Audit Reviewed by Mackenzie Schneider MA (Haz Tech) on 04/25/24 at 1203 Medication Order Taking? Sig Documenting Provider Last Dose Status amoxicillin-pot clavulanate (Augmentin) 875-125 mg tablet [id number] Yes Take 1 tablet (875 mg) by mouth 2 times a day for 10 days. James Sahu, DO Taking Active ARIPiprazole (Abilify) 15 mg tablet [id number] Yes Take 0.5 tablets (7.5 mg) by mouth once daily. Historical Provider, Taking Active ascorbic acid (Vitamin C) 1,000 mg tablet [id number] Yes Take 1 tablet (1,000 mg) by mouth once daily. James Sahu, DO Taking Active aspirin 81 mg EC tablet [id number] Yes Take 1 tablet (81 mg) by mouth once daily. James Sahu, DO Taking Active blood sugar diagnostic (Accu-Chek Guide test strips) strip [id number] Yes 2 strips 2 times a day as needed (Blood sugars). James Sahu, DO Taking Active carBAMazepine (TEGretol) 200 mg tablet [id number] Yes Take 2 tablets (400 mg) by mouth 2 times a day. James Sahu DO Taking Active carvedilol (Coreg) 6.25 mg tablet [id number] Yes Take 1 tablet (6.25 mg) by mouth 2 times a day with meals. James Sahu DO Taking Active cholecalciferol (Vitamin D-3) 50 MCG (2000 UT) tablet [id number] No Take 1 tablet (2,000 Units) by mouth 2 times a day. James Sahu DO Not Taking Active ciprofloxacin-dexamethasone (Ciprodex) otic suspension [id number] Administer 4 drops into the left ear 2 times a day for 7 days. Josh Harris, MANGLE ROLL OPERATOR-TARGET WORKER 04/20/24 2359 cyanocobalamin, vitamin B-12, (Vitamin B-12) 1,000 mcg tablet extended release [id number] No Take 1 tablet (1,000 mcg) by mouth once daily. James Sahu DO Not Taking Active doxepin (SINEquan) 25 mg capsule [id number] Yes Take 1 capsule (25 mg) by mouth once daily at bedtime. Historical Provider, Taking Active glipiZIDE (Glucotrol) 5 mg tablet [id number] No Take 1 tablet (5 mg) by mouth 2 times a day before meals. Patient not taking: Reported on 04/13/2024 James Sahu DO Not Taking Active ibuprofen 200 mg tablet [id number] No Take by mouth every 6 (six) hours. James L Oberhauser, DO Not Taking Active lancets misc [id number] Yes TEST SUGARS 1-2 TIMES DAILY James Sahu, DO Taking Active losartan (Cozaar) 100 mg tablet [id number] Yes Take 1 tablet (100 mg) by mouth once daily. James Sahu, DO Taking Active magnesium gluconate (Magonate) 27.5 mg magne- sium (500 mg) tablet [id number] No Take 1 tablet (27.5 mg) by mouth once daily. James Sahu, DO Not Taking Active melatonin 3 mg tablet [id number] No Take 1 tablet (3 mg) by mouth once daily at bedtime. James Sahu, DO Not Taking Active metFORMIN XR (Glucophage-XR) 500 mg 24 hr tablet [id number] Yes Take 2 tablets (1,000 mg) by mouth 2 times a day with meals. Do not crush, chew, or split. James Sahu, DO Taking Active mirtazapine (Remeron) 15 mg tablet [id number] No Take 1 tablet (15 mg) by mouth once daily at bedtime. James Sahu, DO Not Taking Active multivit-min/iron/folic/lutein (CENTRUM SILVER WOMEN ORAL) [id number] No Take 1 tablet by mouth in the morning. James Sahu, DO Not Taking Active NIFEdipine ER (NIFEdipine CC) 90 mg 24 hr tablet [id number] Yes Take 1 tablet (90 mg) by mouth once daily. James Sahu, DO Taking Active pioglitazone (Actos) 30 mg tablet [id number] Yes Take 1 tablet (30 mg) by mouth once daily. James Sahu, DO Taking Active turmeric root extract 500 mg tablet [id number] No Take 2 tablets by mouth in the morning. James Sahu, DO Not Taking Active venlafaxine XR (Effexor-XR) 150 mg 24 hr capsule [id number] No Take 1 capsule (150 mg) by mouth 2 times a day. James Sahu, DO Not Taking Active venlafaxine XR (Effexor-XR) 75 mg 24 hr capsule [id number] Yes TAKE 1 CAPSULE BY MOUTH ONCE DAILY ALONG WITH THE 150 MG FOR TOTAL DAILY DOSE OF 225MG Historical MD Fartun Taking Active zinc sulfate (Zincate) 220 (50 Zn) MG capsule [id number] No Take by mouth. James Sahu, DO [...] Reinier's care are: none Josh Harris CNP [facility] [phone] documented in this encounter [facility] Work Phone: 04-13-2024 History of Present illness Narrative [facility] NOTE: Name: Reinier Mendoza, 54 y.o. CSN:[id number] PCP: James Sahu DO ALL: Allergies Allergen [...] by Josh Harris CNP Advanced Practice Provider [facility] I was present with [...] note. Alex BRENNAN-S documented in this encounter [facility] Work Phone: 04-15-2023 History of Present [...] [F51.01] Primary insomnia documented in this encounter [facility] Work Phone: 08-21-2022 History of Present [...] is cooking more and watching her carbs. [facility] Work Phone: 06-11-2022 History [...] hour and have not been resulted yet. GJ-Fpdbccl-Krdwhbu 230 DO Work Phone: 05-25-2022 History of [...] to prevent significant issues w/ sodium levels. AX-Xdatoay-Axqilzx 230 DO Work Phone: 05-14-2022 History of [...] that she depends on her son and ghacmbta-gq-wke to give her a ride [facility] Work Phone: 04-30-2022 Note Send Summary: Discharge Summary Providers: Provider RoleProvider Name ReferringAjit Torrez AttendingAjit Torrez [facility] Nurse PractitionerKaterina Akbar Megan L Note Recipients: James Sahu, Discharge: Summary: Admission Date: .28-Apr-2022 10:14:00 Discharge Date: 30-Apr-2022 Attending Physician at Discharge: jazmín Admission Reason: low sodium Final Discharge Diagnoses: Hyponatremia, UTI (urinary tract infection) Procedures: none Condition at Discharge: satisfactory Disposition at Discharge: home Vital Signs: T PRBPMAPSpO2 Value35.56397576/8596% Date/Time04/30 7:149 7:149 7:149 7:149 7:14 Range(35C - 36C ) (67 - 82 ) (16 - 18 ) (133 - 163 )/ (77 - 90 ) (94% - 99% ) Date: Weight/Scale Type:Height: 28-Apr-2022 14:1897.7 kg / dfv981.5 cm Physical Exam: General Appearance: AAO x [...] day (at bedtime) (more content not included)... [facility] 04-28-2022 Note History of Present I llness: [...] this patient. Objective: Objective Information: T PRBPMAPSpO2 Value35.06222423/8959771% Date/Time04/28 10: 13: 13: 13: 13: 13:00 [...] 99& on RA (more content not included)... [facility] 04-28-2022 History of Present illness Narrative Patient [...] is not the best with her diet. [facility] Work Phone: 08-29-2021 Note HNO ID: [id number] Author: Antionette Wilkerson OD Service: ? Author Type: POUNDMASTER Type: Progress Notes Filed: 08/29/2021 3:32 PM Note Text: ASSESSMENT/PLAN: 1. Myopia, bilateral - ICD9: 367.1, ICD10: H52.13 (primary diagnosis) 2. Regular astigmatism, bilateral - ICD9: 367.21, ICD10: H52.223 3. Presbyopia - ICD9: 367.4, ICD10: H52.4 Trial framed the updated saeed and she appreciated the update. Will refer for glaucoma evaluation. Recommended yearly exams. Antionette Wilkerson OD [facility] Evaluation note Diagnosis Type 2 diabetes mellitus without complication, without long-term current use of insulin (CMS/HCC)- Primary Recurrent major depressive disorder, in partial remission (CMS/HCC) Seizures ([facility]/HCC) Other convulsions Primary insomnia Persistent disorder of initiating or maintaining sleep Acute diffuse otitis externa of left ear documented in this encounter [facility] Work Phone: Evaluation note* Diagnosis Urinary tract infection without hematuria, site unspecified- Primary Hyponatremia Hyposmolality and/or hyponatremia documented in this encounter [facility] Work Phone: Evaluation note* Diagnosis Hyponatremia- Primary Hyposmolality and/or hyponatremia Primary hypertension Unspecified essential hypertension documented in this encounter [facility] Work Phone: Evaluation note* Diagnosis Hyponatremia- Primary Hyposmolality and/or hyponatremia Primary hypertension Unspecified essential hypertension Acute cystitis without hematuria- Primary Dysuria documented in this encounter [facility] Work Phone: Evaluation note* Diagnosis Other infective acute otitis externa of left ear- Primary documented in this encounter [facility] Work Phone: Evaluation note* Diagnosis Acute bronchitis, unspecified organism- Primary documented in this encounter [facility] Work Phone: Evaluation note* Diagnosis Hyponatremia- Primary Hyposmolality and/or hyponatremia Primary hypertension Unspecified essential hypertension Screening for colon cancer- Primary Special screening for malignant neoplasms, colon Folliculitis Other specified disease of hair and hair follicles Encounter for screening mammogram for malignant neoplasm of breast Acute low back pain without sciatica, unspecified back pain laterality documented in this encounter [facility] Work Phone: Evaluation note* Diagnosis Hyponatremia- Primary Hyposmolality and/or hyponatremia Primary hypertension Unspecified essential hypertension Encounter for screening mammogram for malignant neoplasm of breast documented in this encounter [facility] Work Phone: Evaluation note* Diagnosis Hyponatremia- Primary Hyposmolality and/or hyponatremia Primary hypertension Unspecified essential hypertension Type 2 diabetes mellitus without complication, without long-term current use of insulin- Primary Primary hypertension Unspecified essential hypertension documented in this encounter [facility] Work Phone: Evaluation note* Diagnosis Hyponatremia- Primary Hyposmolality and/or hyponatremia Primary hypertension Unspecified essential hypertension Primary hypertension- Primary Unspecified essential hypertension Hyponatremia Hyposmolality and/or hyponatremia Pre-operative clearance Unspecified pre-operative examination documented in this encounter [facility] Work Phone: Evaluation note* Diagnosis Hyponatremia- Primary Hyposmolality and/or hyponatremia Primary hypertension Unspecified essential hypertension UTI (urinary tract infection), uncomplicated- Primary Urinary tract infection, site not specified Periumbilical abdominal pain Abdominal pain, periumbilic documented in this encounter [facility] Work Phone: History of Present illness [...] she has been seeing Dr Gomes, in [place], [place], she has been seeing him for years, she has been off Klonopin since February of 2021, she is currently on Mirtazapine 7.5mg po daily, effexor er 150mg pobid * Does not know her fathers side history of any of her siblings. [facility] Work Phone: History of [...] the month that she was routinely in sdw438c and 180s, at this time she is running in the 140s to the 160s systolically [facility]wjjsc[facility] Darryn 3 DO Work Phone: Hospital Discharge instructions* Attachments The following attachments cannot be sent through Care Everywhere. * Abdominal pain in adults ED discharge instructions ([place]ozambican) [facility]: Reveag for referral (narrative)* Consultation (Routine) - Authorized Specialty Diagnoses / Procedures Referred By Daysi yan Referred To Contact Primary Care Procedures Follow Up In Primary Care - Established James Sahu DO [address] [facility] [place] [address] Referral ID Status Reason Start Date Expiration Date V isits Requested Visits Authorized [id number] Authorized 04/15/2023 10/12/2023 1 1 [facility] Work Phone: Reason for visit Narrative* Imaging (Routine) - Authorized Specialty Diagnoses / Procedures Referred By Contac t Referred To Contact Radiology Diagnoses Encounter for screening mammogram for malignant neoplasm of breast Procedures BI mammo bilateral screening tomosynthesis Suzanne Arroyo, MANGLE ROLL OPERATOR-TARGET WORKER [address] [facility] [address] [facility] [place] [address] Phone: tel: fax: Referral ID Status Reason Start Date Expiration Date Visits Requested Visits Authorized [id number] Authorized Perform Procedure 09/28/2024 09/28/2025 1 1 [facility] Work Phone: Hospital Course Discharge Summary No Discharge Summary Informa tion Discharge Instructions Discharge Instructions No Discharge Instructions Assessments Diagnosis Acute URI- Primary Acute upper respiratory infections of unspecified site Dehydration Hyperglycemia Other abnormal glucose Hyponatremia Hyposmolality and/or hyponatremia Advance Directives No Advanced Directives Records FoundDocuments on File Type Date Recorded Patient Photo Print Specialist Expl anation Advance Directives and Livin g [...] * 51 y/o female 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: [id number] * LOT: [id number] * EXP: 12/2022 * 52 y/o female presents for hospital f/u * Pt was hospitalized 04/28-04/30 due to bladder infection and low sodium * She states she is doing better * She is following up with Dr. Cornelius Thursday * HEAT TREATER HEAD- Hospital follow-up * Lab review 05/14/2022 Patient [...] UTI UTI sx for about 1 w [place]. Pt has back pain, frequency. Reason Comments Earache Left ear pain x 1 da y Reason Comments URI Sob, congestion, lia rrhea x 1 day Reason Comments Establish Care Sinusitis Cyst Specialty Diagnoses / Procedures Referred By Daysi t Referred To Contact Diagnoses Acute low back pain without sciatica, unspecified back pain laterality Suzanne Arroyo, MANGLE ROLL OPERATOR-TARGET WORKER [address] [address] [facility] [place] [address] Phone: tel: fax: Referral ID Status Reason Start Date Expiration Date V isits Requested Visits Authorized [id number] Pending Review 09/28/2024 09/28/2025 1 1 Reason Comments Follow-up 6 month follow up tn eds labs orderPHQ2/9:18 Reason Comments Pre-op Exam [...] secti on and content) ED PROVIDER NOTE [facility] NAME: Reinier Mendoza AGE: 50 y.o. : 1970 VISIT DATE: 10/23/2020 CSN: [id number] PCP: Physician No Chief Complaint Patient presents [...] with signage outside this patient's room. This nurse care manager performs hand hygiene and enters [...] ? No exudate ? No signs of GRAPE PRUNER / deep-space infection ? No significant gingivitis [...] file Gets together: Not on file Attends oriental orthodox service: Not on file Active member of [...] section and content) DATE CREATED AUTHOR 10/29/2020 [facility] DATE CREATED AUTHOR AUTHOR'S ORGANIZ ATION 10/31/2021 [facility] DATE CREATED AUTHOR AUTHOR'S ORGANIZ ATION 05/13/2022 [facility] DATE CREATED AUTHOR AUTHOR'S ORGANIZ ATION 07/02/2022 [facility] DATE CREATED AUTHOR AUTHOR'S ORGANIZ ATION 10/01/2022 [employer] DATE CREATED AUTHOR AUTHOR'S ORGANIZ ATION 03/12/2023 [facility] DATE CREATED AUTHOR AUTHOR'S ORGANIZ ATION 06/08/2025 [facility] DATE CREATED AUTHOR AUTHOR'S ORGANIZ ATION 06/09/2025 [facility] DATE CREATED AUTHOR AUTHOR'S ORGANIZ ATION 06/10/2025 [facility] DATE CREATED AUTHOR AUTHOR'S ORGANIZ ATION 06/19/2025 [facility] DATE CREATED AUTHOR AUTHOR'S ORGANIZ ATION 06/22/2025 [facility] Care Teams (unrecognized sec tion and content) Hydraulic Press Servicer Relationship Specialty Start Date End Date James Sahu DO [address] [facility] [place] [address] PCP - General 09/10/21 James Sahu DO [address] [facility] [place] [address] PCP - MMO ACO PCP 11/08/21 Hydraulic Press Servicer Relationship Specialty Start Date End Date James Sahu DO [address] [facility] [place] [address] PCP - General 09/10/21 James Sahu DO [address] [facility] [place] [address] PCP - MMO ACO PCP 11/08/21 Hydraulic Press Servicer Relationship Specialty Start Date End Date James Sahu DO [address] [facility] [place] [address] PCP - General 09/10/21 James Sahu DO [address] [facility] [place] [address] PCP - MMO ACO PCP 11/08/21 Hydraulic Press Servicer Relationship Specialty Start Date End Date James Sahu DO [address] [facility] [place] [address] PCP - General 09/10/21 James Sahu, DO [address] [facility] [place] [address] PCP - MMO ACO PCP 11/08/21 Hydraulic Press Servicer Relationship Specialty Start Date End Date James Sahu, [address] [place] [address] PCP - General 09/10/21 James Sahu, DO [address] [facility] [place] [address] PCP - MMO ACO PCP 11/08/21 Hydraulic Press Servicer Relationship Specialty Start Date End Date James Sahu, [address] [facility] [place] [address] PCP - General 09/10/21 James Sahu, DO [address] [facility] [place] [address] PCP - MMO ACO PCP 11/08/21 Hydraulic Press Servicer Relationship Specialty Start Date End Date James Sahu, DO [address] [facility] [place] [address] PCP - General 09/10/21 ObJames moralez DO [address] [facility] [place] [address] PCP - MMO ACO PCP 11/08/21 Hydraulic Press Servicer Relationship Specialty Start Date End Date James Sahu DO [address] [facility] [place] [address] PCP - General 09/10/21 James Sahu DO [address] [facility] [place] [address] PCP - MMO ACO PCP 11/08/21 Hydraulic Press Servicer Relationship Specialty Start Date End Date James Sahu PCP - General 09/10/21 James Sahu PCP - MMO ACO PCP 11/08/21 Hydraulic Press Servicer Relationship Specialty Start Date End Date Emilie Cornelius APRN-CNP, DNP [address] [place] [id number] PCP - MMO ACO PCP 01/08/25 Suzanne Arroyo APRN-TARGET WORKER [address] [facility], [address] [place] [id number] PCP - General Family Medicine 03/27/25 Hydraulic Press Servicer Relationship Specialty Start Date End Date Emilie Cornelius APRN-CNP, DNP [address] [address] PCP - MMO ACO PCP 01/08/25 Suzanne Arroyo, MANGLE ROLL OPERATOR-TARGET WORKER [address] [facility], [address] [place] [address] PCP - General Family Medicine 03/27/25 Hydraulic Press Servicer Relationship Specialty Start Date End Date Suzanne Arroyo APRN-ARMANDO [address] [facility], [address] [place] [address] PCP - General Family Medicine 03/27/25 Scheduled [...] BE BASED ON THE PRIMARY CLINICAL RECORDS. [employer] provides no warranty or guarantee of the accuracy or completeness of information in this document.
[2025-06-24] MEDS: Orphenadrine 60 MG/2 ML Ampul IM (14:30)
[2025-06-24 14:37] LABS: Hematocrit 33.4 % (37-47); Hemoglobin 11.7 g/dL (12.0-15.0); Immature Granulocytes Count 0.060 X10^3/uL (0.0-0.0); Mean Corp Hgb Conc 35.0 g/dL (32-36); Mean Corpuscular Volume 85.6 fL (81-99); Mean Platelet Vol. 8.5 fl (6.2-12.0); NRBC Flagged by Analyzer 0 % (0-5); Platelet Count 419 K/mm3 (150-450); RBC Distribution Width CV 12.1 % (11.6-14.6); RBC Distribution Width SD 37.8 fl (35.1-43.9); Red Blood Count 3.90 M/mm3 (4.2-5.4); White Blood Count 7.3 K/mm3 (4.4-11.0)
[2025-06-24 14:48] LABS: Anion Gap 12 (5-15); BUN 12 mg/dL (4-19); BUN/Creat Ratio 27.9 RATIO (10-20); Calcium,Total 9.7 mg/dL (7.6-11.0); Carbon Dioxide 23.8 mmol/L (21.0-32.0); Chloride 95 mmol/L (98-108); Estimated Creatinine Clearance 172.14 ml/min (50-250); Glucose 150 mg/dL (70-99); Potassium 4.1 mmol/L (3.3-5.1)
[2025-06-24] MEDS: 0.9% Saline Lock 10 ML Syringe IV (16:16)
[2025-06-24] MEDS: 0.9% Normal Saline (250mL Bag) 250 ML 15 ML IV (16:17)
[2025-06-24] MEDS: HYDROmorphone 0.5 MG/0.5 ML SYRINGE IV (16:22)
[2025-06-24] MEDS: Cefepime HCl 2 GM in 0.9% Normal Saline (100mL MB+) 100 ML IV ×2 (16:22→23:02)
--- NOTE | 2025-06-24 17:05 | NURSING ---
CPS notified of pt own cpap at bedside for hs use.
[2025-06-24] MEDS: MELATONIN 10 MG TABLET 5 MG PO (20:32)
[2025-06-24] MEDS: metFORMIN (XR) 500 MG Tablet 1000 MG PO (20:33)
[2025-06-24] MEDS: Pioglitazone Hydrochloride 30 MG Tablet PO (20:34)
[2025-06-25] VITALS (8 sets, daily range): BP systolic 152–194; BP diastolic 74–99; PULSE 66–83; RESP 16–18; TEMP 36.3–36.9; O2SAT 98–100
[2025-06-25] MEDS: Cefepime HCl 2 GM in 0.9% Normal Saline (100mL MB+) 100 ML IV ×3 (06:19→21:06)
[2025-06-25] MEDS: buPROPion (XL) 300 MG TABLET.XL PO (07:46)
[2025-06-25] MEDS: NIFEdipine 90 MG Tablet PO (07:47)
[2025-06-25] MEDS: metFORMIN (XR) 500 MG Tablet 1000 MG PO ×2 (07:48→21:09)
[2025-06-25] MEDS: Aspirin E.C. 81 MG Tablet PO (07:49)
--- NOTE | 2025-06-25 08:18 | PCM.PN.HOSP ---
Subjective Subjective No issues overnight Objective Data Objective Data Vital Signs: Vital Signs Temp Pulse Resp BP Pulse Ox O2 Del Method 97.9 F 83 16 152/74 H 98 Room Air 06/25/25 07:59 06/25/25 07:59 06/25/25 07:59 06/25/25 07:59 06/25/25 07:59 06/25/25 07:59 Oxygen Delivery Method Room Air Weight: 222 lb 7.143 oz Body Mass Index (BMI) 35.9 Intake & Output: Intake and Output for Last 24 Hours 06/24/25 06/25/25 06/26/25 03:59 03:59 03:59 Intake Total 985.50 / 985.50 100 / 100 Balance 985.50 / 985.50 100 / 100 Lab / Micro Data 06/24/25 14:17 06/24/25 14:17 Labs: Laboratory Results - last 24 hr 06/24/25 14:17: WBC 7.3, RBC 3.90 L, Hgb 11.7 L, Hct 33.4 L, MCV 85.6, MCH 30.0, MCHC 35.0, RDW Std Deviation 37.8, RDW Coeff of Randell 12.1, Plt Count 419, MPV 8.5, Immature Gran % (Auto) 0.800, Neut % (Auto) 60.7, Lymph % (Auto) 26.7, [place] % (Auto) 9.2, Eos % (Auto) 1.9, Baso % (Auto) 0.7, Absolute Neuts (auto) 4.4, Absolute Lymphs (auto) 1.95, Nucleated RBC % 0, Sodium 130 L, Potassium 4.1, Chloride 95 L, Carbon Dioxide 23.8, Anion Gap 12, BUN 12, Creatinine 0.44 L, Estim Creat Clear Calc 172.14, Est GFR (MDRD) Non-Af 113, BUN/Creatinine Ratio 27.9 H, Glucose 150 H, Calcium 9.7 06/24/25 16:14: POC Glucose 137 H 06/24/25 20:19: POC Glucose 202 H 06/25/25 06:18: POC Glucose 191 H Physical Exam Narrative General: Alert, Oriented x3, Cooperative, No apparent distress HEENT: Atraumatic, PERRLA, EOMI, Normocephalic Oral: Moist Mucosa Neck: Supple, No JVD Lungs: Diminished, Normal air movement, No rhonchi, No wheeze, No rales Cardiovascular: Regular rate, Regular Rhythm, Normal S1, Normal S2, No murmurs Abdomen: Soft, Non Tender, Non-Distended, No Hepato-splenomegaly Extremities: No edema, Capillary Refill Less than 3 Seconds Skin: No rashes, No breakdown Musculoskeletal: Mild tenderness to palpation of her right thigh/hip joint Neurological: No focal neurological deficits, moves all extremities Psych/Mental Status: Normal affect, appropriate Assessment & Plan Assessment/Plan (1) Psoas abscess, right: PLAN: Plan 1. Right psoas abscess ?She recently had laminectomy on June 12, 2025 and the incision was in the left flank. Says she had been having increased pain since then. She was found to have a UTI so she went to outside hospital ED. She was sent home on antibiotics after CT was done. ?PT/OT ? Continue with cefepime and vancomycin ? Continue with only oxycodone and Xanax no IV pain meds 2. Bipolar disorder/PTSD: On bupropion and aripiprazole, venlafaxine and carbamazepine 3. Essential hypertension: On metoprolol will monitor make adjustments as necessary 4. Type 2 diabetes mellitus: On metformin and pioglitazone. Insulin sliding scale. Accuchecks ACHS. DVT: Lovenox Charges/Coding Visit Charges Inpatient E&M: 74758 Subs Hosp L2
[2025-06-25] MEDS: 0.9% Saline Lock 10 ML Syringe IV (21:07)
[2025-06-25] MEDS: Magnesium Chloride 64 MG Delay Rel.Tablet 128 MG PO (21:08)
[2025-06-25] MEDS: Pioglitazone Hydrochloride 30 MG Tablet PO (21:10)
[2025-06-26 02:30] VITALS: BP 157/97; PULSE 73; RESP 16; TEMP 36.6; O2SAT 98
[2025-06-26] MEDS: 0.9% Saline Lock 10 ML Syringe IV ×2 (06:07→23:02)
[2025-06-26] MEDS: Cefepime HCl 2 GM in 0.9% Normal Saline (100mL MB+) 100 ML IV ×3 (06:07→23:02)
[2025-06-26] MEDS: buPROPion (XL) 300 MG TABLET.XL PO (07:42)
[2025-06-26] MEDS: Aspirin E.C. 81 MG Tablet PO (07:42)
[2025-06-26] MEDS: metFORMIN (XR) 500 MG Tablet 1000 MG PO ×2 (07:42→20:19)
[2025-06-26] MEDS: NIFEdipine 90 MG Tablet PO (07:42)
[2025-06-26 08:07] VITALS: BP 178/100; PULSE 79; RESP 16; TEMP 36.6; O2SAT 99
--- NOTE | 2025-06-26 08:19 | WOUNDNOTE ---
Addendum entered by Masha Sawyer 06/26/25 08:21: right 2nd toe Original Note: wound photo: right 3rd toe
--- NOTE | 2025-06-26 08:19 | WOUNDNOTE ---
wound photo: right 2nd toe
[2025-06-26] MEDS: Polyethylene Glycol 3350 17 GM PACKET PO ×2 (09:00→20:20)
--- NOTE | 2025-06-26 09:29 | PCM.PN.HOSP ---
Subjective Subjective No issues overnight, pain is controlled Objective Data Objective Data Vital Signs: Vital Signs Temp Pulse Resp BP Pulse Ox O2 Del Method 98 F 79 16 178/100 H 99 Room Air 06/26/25 08:07 06/26/25 08:07 06/26/25 08:07 06/26/25 08:07 06/26/25 08:07 06/26/25 08:07 Oxygen Delivery Method Room Air Weight: 222 lb 7.143 oz Body Mass Index (BMI) 35.9 Intake & Output: Intake and Output for Last 24 Hours 06/25/25 06/26/25 06/27/25 03:59 03:59 03:59 Intake Total 985.50 / 985.50 897.25 / 897.25 300 / 300 Balance 985.50 / 985.50 897.25 / 897.25 300 / 300 Lab / Micro Data 06/24/25 14:17 06/24/25 14:17 Labs: Laboratory Results - last 24 hr 06/25/25 11:08: POC Glucose 177 H 06/25/25 16:12: POC Glucose 113 H 06/25/25 21:06: POC Glucose 134 H 06/26/25 06:14: POC Glucose 154 H Physical Exam Narrative General: Alert, Oriented x3, Cooperative, No apparent distress HEENT: Atraumatic, PERRLA, EOMI, Normocephalic Oral: Moist Mucosa Neck: Supple, No JVD Lungs: Diminished, Normal air movement, No rhonchi, No wheeze, No rales Cardiovascular: Regular rate, Regular Rhythm, Normal S1, Normal S2, No murmurs Abdomen: Soft, Non Tender, Non-Distended, No Hepato-splenomegaly Extremities: No edema, Capillary Refill Less than 3 Seconds Skin: No rashes, No breakdown Musculoskeletal: Mild tenderness to palpation of her right thigh/hip joint Neurological: No focal neurological deficits, moves all extremities Psych/Mental Status: Normal affect, appropriate Assessment & Plan Assessment/Plan (1) Psoas abscess, right: PLAN: Plan 1. Right psoas abscess ?She recently had laminectomy on June 12, 2025 and the incision was in the left flank. Says she had been having increased pain since then. She was found to have a UTI so she went to outside hospital ED. She was sent home on antibiotics after CT was done. ?PT/OT, consult case management awaiting placement ? Continue with cefepime and vancomycin ? Continue with only oxycodone and Xanax no IV pain meds 2. Bipolar disorder/PTSD: On bupropion and aripiprazole, venlafaxine and carbamazepine 3. Essential hypertension: On metoprolol will monitor make adjustments as necessary 4. Type 2 diabetes mellitus: On metformin and pioglitazone. Insulin sliding scale. Accuchecks ACHS. DVT: Lovenox Charges/Coding Visit Charges Inpatient E&M: 75585 Subs Hosp L2
--- NOTE | 2025-06-26 10:56 | CASEMGMT ---
Social Work- SW met with pt to complete SDOH. SW introduced self and role; pt agreeable to meet. Pt reports no issues; SDOH triggered in error. Pt expressed annoyance at assessment being triggered in error. SW provided support and education on assessment. Pt reports plans for SNF at d/c and would like somewhere where she can vape and that has a TV in the room. Pt would also like a private room. SW educated that RNCM will provide a list of SNF providers in network. SW updated RNCM on pt requests. ANDRE Lara
--- NOTE | 2025-06-26 11:15 | CASEMGMT ---
Discharge Planning A list of?SNF providers including quality and resource use data and consistent with the patient's preferred geographic region, medical needs, and insurance network was created in CarePort Guide.? This list was provided to the RN JENNIFER. Lynn Casey, Discharge Planning Asst.
[2025-06-26 11:34] VITALS: BP 163/94; PULSE 71; RESP 16; TEMP 36.8; O2SAT 100
--- NOTE | 2025-06-26 14:19 | RAD_ITS ---
EXAM: XR Lumbosacral Spine, 2 or 3 Views CLINICAL INDICATION: POST OP TECHNIQUE: Frontal and lateral views of the lumbar spine and sacrum. COMPARISON: No relevant prior studies available. FINDINGS: VERTEBRAE: Unremarkable. No acute fracture. Normal alignment. SACRUM/COCCYX: Unremarkable as visualized. No acute fracture. DISC SPACES: Status post posterior fusion of L4-S1. Status post left-sided fusion of L3-4 and L2-3 with disc spacers. Intact hardware. Satisfactory position. SOFT TISSUES: Unremarkable. RAD/Lumbar Spine 2 or 3 Views IMPRESSION: Postoperative changes as above. Reading Location: [id number]
--- NOTE | 2025-06-26 14:25 | CASEMGMT ---
Addendum entered by Lynn Casey 06/27/25 09:26: [facility] accepted and will submit for precert. CALDERON RODRIGUEZ updated. Lynn Casey DC Planning Asst. Addendum entered by Lynn Casey 06/27/25 08:55: Call placed to Tray @ [facility]. Tray states that she should receive [facility] referrals via CarePort but didn't receive this one and asked me to send it again. When resending, it was noticed that Tray is not a recipient for [facility] referrals. Referral faxed to [phone]. Tray will look into being added to referral list. CALDERON RODRIGUEZ updated. Lynn Casey DC Planning Asst. Addendum entered by Lynn Casey 06/27/25 08:13: Msg sent via Careport to check on status of referral. Referral has been viewed but there has been no response from snf. Lynn Casey DC Planning Asst Original Note: Discharge Planning Referral sent via [facility]Port to [facility]. Lynn Casey DC Planning Asst.
[2025-06-26 14:42] VITALS: BP 173/102; PULSE 77; RESP 16; TEMP 36.3; O2SAT 100
[2025-06-26 20:06] VITALS: BP 169/92; PULSE 67; RESP 18; TEMP 36.4; O2SAT 98
[2025-06-26] MEDS: MELATONIN 10 MG TABLET 5 MG PO (20:19)
[2025-06-26] MEDS: Magnesium Chloride 64 MG Delay Rel.Tablet 128 MG PO (20:19)
[2025-06-26] MEDS: Pioglitazone Hydrochloride 30 MG Tablet PO (20:19)
[2025-06-27] VITALS (7 sets, daily range): BP systolic 157–222; BP diastolic 80–105; PULSE 59–77; RESP 16–18; TEMP 36.2–36.6; O2SAT 98–100
[2025-06-27] MEDS: 0.9% Saline Lock 10 ML Syringe IV ×3 (00:12→22:40)
[2025-06-27] MEDS: Cefepime HCl 2 GM in 0.9% Normal Saline (100mL MB+) 100 ML IV ×3 (06:38→22:34)
[2025-06-27] MEDS: buPROPion (XL) 300 MG TABLET.XL PO (07:27)
[2025-06-27] MEDS: Polyethylene Glycol 3350 17 GM PACKET PO ×2 (07:27→22:25)
[2025-06-27] MEDS: metFORMIN (XR) 500 MG Tablet 1000 MG PO ×2 (07:27→22:25)
[2025-06-27] MEDS: Aspirin E.C. 81 MG Tablet PO (07:28)
[2025-06-27] MEDS: NIFEdipine 90 MG Tablet PO (07:28)
--- NOTE | 2025-06-27 09:33 | PCM.PN.HOSP ---
Subjective Subjective Pain is controlled, no issues overnight Objective Data Objective Data Vital Signs: Vital Signs Temp Pulse Resp BP Pulse Ox O2 Del Method 97.6 F L 70 16 162/93 H 98 Room Air 06/27/25 08:16 06/27/25 08:16 06/27/25 08:16 06/27/25 08:16 06/27/25 08:16 06/27/25 08:16 Oxygen Delivery Method Room Air Weight: 222 lb 7.143 oz Body Mass Index (BMI) 35.9 Intake & Output: Intake and Output for Last 24 Hours 06/26/25 06/27/25 06/28/25 03:59 03:59 03:59 Intake Total 897.25 / 897.25 3750 / 3750 500 / 500 Balance 897.25 / 897.25 3750 / 3750 500 / 500 Lab / Micro Data 06/24/25 14:17 06/24/25 14:17 Labs: Laboratory Results - last 24 hr 06/26/25 11:21: POC Glucose 164 H 06/26/25 15:55: POC Glucose 174 H 06/26/25 20:18: POC Glucose 142 H 06/27/25 06:50: POC Glucose 162 H Radiography Diagnostic Testing: Radiology Impression Lumbar Spine X-Ray 06/26/25 14:19 IMPRESSION: Postoperative changes as above. Reading Location: [facility] Physical Exam Narrative General: Alert, Oriented x3, Cooperative, No apparent distress HEENT: Atraumatic, PERRLA, EOMI, Normocephalic Oral: Moist Mucosa Neck: Supple, No JVD Lungs: Diminished, Normal air movement, No rhonchi, No wheeze, No rales Cardiovascular: Regular rate, Regular Rhythm, Normal S1, Normal S2, No murmurs Abdomen: Soft, Non Tender, Non-Distended, No Hepato-splenomegaly Extremities: No edema, Capillary Refill Less than 3 Seconds Skin: No rashes, No breakdown Musculoskeletal: Mild tenderness to palpation of her right thigh/hip joint Neurological: No focal neurological deficits, moves all extremities Psych/Mental Status: Normal affect, appropriate Assessment & Plan Assessment/Plan (1) Psoas abscess, right: PLAN: Plan 1. Right psoas abscess ?She recently had laminectomy on June 12, 2025 and the incision was in the left flank. Says she had been having increased pain since then. She was found to have a UTI so she went to outside hospital ED. She was sent home on antibiotics after CT was done. ?PT/OT, consult case management awaiting placement ? Continue with cefepime and vancomycin ? Continue with only oxycodone and Xanax no IV pain meds 2. Bipolar disorder/PTSD: On bupropion and aripiprazole, venlafaxine and carbamazepine 3. Essential hypertension: On metoprolol will monitor make adjustments as necessary 4. Type 2 diabetes mellitus: On metformin and pioglitazone. Insulin sliding scale. Accuchecks ACHS. DVT: Lovenox Charges/Coding Visit Charges Inpatient E&M: 85110 [facility] Hosp L1
--- NOTE | 2025-06-27 16:14 | CASEMGMT ---
Pt has been accepted at [facility]. Pt has a 35% copay which is approx $150/day per SNF. RN CM into pt room, she is aware of this. Pt agreeable to proceed. Pt denies further questions at this time.
[2025-06-27] MEDS: Magnesium Chloride 64 MG Delay Rel.Tablet 128 MG PO (22:24)
[2025-06-27] MEDS: Pioglitazone Hydrochloride 30 MG Tablet PO (22:25)
[2025-06-27] MEDS: MELATONIN 10 MG TABLET 5 MG PO (22:34)
[2025-06-28 00:12] VITALS: BP 174/97; PULSE 71; RESP 16; TEMP 36.3; O2SAT 98
[2025-06-28 06:14] LABS: Hematocrit 33.5 % (37-47); Hemoglobin 11.6 g/dL (12.0-15.0); Immature Granulocytes Count 0.050 X10^3/uL (0.0-0.0); Mean Corp Hgb Conc 34.6 g/dL (32-36); Mean Corpuscular Volume 86.6 fL (81-99); Mean Platelet Vol. 8.6 fl (6.2-12.0); NRBC Flagged by Analyzer 0 % (0-5); Platelet Count 355 K/mm3 (150-450); RBC Distribution Width CV 12.1 % (11.6-14.6); RBC Distribution Width SD 37.7 fl (35.1-43.9); Red Blood Count 3.87 M/mm3 (4.2-5.4); White Blood Count 7.9 K/mm3 (4.4-11.0)
[2025-06-28] MEDS: Cefepime HCl 2 GM in 0.9% Normal Saline (100mL MB+) 100 ML IV ×2 (06:35→13:40)
[2025-06-28] MEDS: 0.9% Saline Lock 10 ML Syringe IV (06:38)
[2025-06-28 06:42] VITALS: BP 174/95; PULSE 72; RESP 16; TEMP 36.6; O2SAT 98
[2025-06-28 06:47] LABS: Anion Gap 13 (5-15); BUN 13 mg/dL (4-19); BUN/Creat Ratio 27.3 RATIO (10-20); Calcium,Total 9.1 mg/dL (7.6-11.0); Carbon Dioxide 19.3 mmol/L (21.0-32.0); Chloride 93 mmol/L (98-108); Estimated Creatinine Clearance 156.89 ml/min (50-250); Glucose 164 mg/dL (70-99); Potassium 4.2 mmol/L (3.3-5.1)
[2025-06-28 06:48] VITALS: PULSE 72
[2025-06-28] MEDS: Polyethylene Glycol 3350 17 GM PACKET PO (08:40)
[2025-06-28] MEDS: metFORMIN (XR) 500 MG Tablet 1000 MG PO (08:40)
[2025-06-28] MEDS: NIFEdipine 90 MG Tablet PO (08:41)
[2025-06-28] MEDS: Aspirin E.C. 81 MG Tablet PO (08:41)
[2025-06-28] MEDS: buPROPion (XL) 300 MG TABLET.XL PO (08:41)
[2025-06-28 08:58] VITALS: BP 153/81; PULSE 75; RESP 18; TEMP 36.5; O2SAT 100
--- NOTE | 2025-06-28 11:15 | CASEMGMT ---
Addendum entered by Elizabeth Carcamo 06/28/25 16:16: TC to Dora at [facility], left vm with referral requesting returned call. CALDERON RODRIGUEZ into pt room, pt is aware that [facility] will continue with her services and she will use her medications at home that she has already had delivered. Pt is aware that she will continue both IVs per her dc instructions, cefepime and vancomycin. Pt is aware that [facility] has not returned calls to state if they are able to see pt at home or not. She is aware that we can see if they call back by tomorrow and accept her for care as it was very difficult to find a HH agency last admission. She is aware that if they do not accept her, she will need to come into the infusion center weekly for picc dressing and labs. Pt is agreeable to this. She is aware that RN JENNIFER will touch base with her tomorrow. Pt states her picc dressing was changed this hospital admission. RN CM to f/u tomorrow. Pt denies any questions at this time. Addendum entered by Elizabeth Carcamo 06/28/25 15:56: TC to [facility], spoke with Melida, they are able to continue services with pt and pt may dc today. Uploaded dc instructions and labs and sent via [employer]. Addendum entered by Elizabeth Carcamo 06/28/25 12:22: Referral sent to [facility] at this time to continue same IV atb. Original Note: Pt nurse states pt would like to speak to RN JENNIFER. RN JENNIFER into pt room, pt states that she now wants to go back to her son's home. Asked pt what will be different this time, pt states that now she is not in pain and she can focus on the IVs. Pt is aware that the same IVs will be ordered and will be 5x/day. Pt states there is a family member who was a nurse that lives in a home combined with her son's so the person does not really have to leave the home to do her IVs for her. Pt wants the same HH agency that was set up before as well as the same infusion company. Pt is aware that this CALDERON RODRIGUEZ will speak with the hospitalist and start the referrals to [facility], [facility] and [facility]. Pt agreeable to this plan. Updated hospitalist who is agreeable to dc'ing pt today. Requested dc assistant professor of art send referral to [facility], [facility].
--- NOTE | 2025-06-28 11:58 | CASEMGMT ---
Addendum entered by Lynn Casey 06/29/25 09:47: Fax confirmation rec'd and call rec'd from Dora @ [facility]. She will touch base with nursing to see if/when they are able to start care. CALDERON RODRIGUEZ. Lynn Casey DC Planning Asst. Addendum entered by Lynn Casey 06/29/25 09:43: [facility] has not responded via CarePort or phone (vm left x3 by this proposal manager writer and x1 by CALDERON RODRIGUEZ). Referrals including DC Instructions faxed to [facility]. Lynn Casey DC Planning Asst. Original Note: Discharge Planning HH referral sent via CarePort to [facility]. Lynn Casey DC Planning Asst.
--- NOTE | 2025-06-28 14:33 | PCM.PN.ORT ---
Subjective Subjective Patient was seen 06/27/2025 for 2-week postop from anterior lumbar fusion L2-4. The patient reports minimal pain associated with the lumbar fusion however she does continue to have right sided abdominal and leg pain associated with the psoas abscess. The patient has a PICC line and is being followed by infectious disease with Dr. Bowens. The patient was initially discharged home however her family was not able to give her the help that she needed at this time and so she was readmitted with plans for transfer to a SNF. The patient has taken off all the dressings on the left sided abdominal incision. Incision is dry and healing well. She does report that the pain has been improving since starting the antibiotic. Objective Data Objective Data Vital Signs: Vital Signs Temp Pulse Resp BP Pulse Ox O2 Del Method 97.7 F L 75 18 153/81 H 100 Room Air 06/28/25 08:58 06/28/25 08:58 06/28/25 08:58 06/28/25 08:58 06/28/25 08:58 06/28/25 09:20 Oxygen Delivery Method Room Air Weight: 222 lb 7.143 oz Body Mass Index (BMI) 35.9 Intake & Output: Intake and Output for Last 24 Hours 06/26/25 06/27/25 06/28/25 23:59 23:59 23:59 Intake Total 3750 / 3750 2750 / 2750 500 / 500 Balance 3750 / 3750 2750 / 2750 500 / 500 Lab / Micro Data 06/28/25 05:48 06/28/25 05:48 Labs: Laboratory Results - last 24 hr 06/27/25 15:49: POC Glucose 178 H 06/27/25 22:41: POC Glucose 129 H 06/28/25 05:48: WBC 7.9, RBC 3.87 L, Hgb 11.6 L, Hct 33.5 L, MCV 86.6, MCH 30.0, MCHC 34.6, RDW Std Deviation 37.7, RDW Coeff of Randell 12.1, Plt Count 355, MPV 8.6, Immature Gran % (Auto) 0.600, Neut % (Auto) 61.9, Lymph % (Auto) 25.9, [place] % (Auto) 9.4, Eos % (Auto) 1.7, Baso % (Auto) 0.5, Absolute Neuts (auto) 4.9, Absolute Lymphs (auto) 2.04, Nucleated RBC % 0, Sodium 125 L, Potassium 4.2, Chloride 93 L, Carbon Dioxide 19.3 L, Anion Gap 13, BUN 13, Creatinine 0.48 L, Estim Creat Clear Calc 156.89, Est GFR (MDRD) Non-Af 111, BUN/Creatinine Ratio 27.3 H, Glucose 164 H, Calcium 9.1 06/28/25 06:40: POC Glucose 168 H 06/28/25 11:37: POC Glucose 123 H Physical Exam Narrative Neurological examination of the lower extremity showed 5X5 power. Normal sensation across all dermatomes. The patient was laying on her left side to the right side pain. Physical examination of the abdomen shows incisional dry and healing well. Const alert, oriented x3 and no apparent distress Assessment & Plan Assessment/Plan (1) Status post lumbar spinal fusion: (2) Psoas abscess, right: PLAN: Plan 2-week postop L2-4 anterior fusion. Obtained to review x-rays today which show hardware and bone grafting position. Encouraged PT when she is at the SNF. Continue follow-up with Dr. Bowens with infectious disease. She will see us back in the clinic in 4 weeks for 6-week postop. Sooner if needed for any new or worsening issues. Continue restrictions no bending, lifting, twisting. Patient is in agreement to the plan.
[2025-06-28 14:44] VITALS: BP 160/84; PULSE 77; RESP 18; TEMP 36.5; O2SAT 100
--- NOTE | 2025-06-28 15:06 | DCINST_ITS ---
Discharge Instructions DC O2, CPAP, BIPAP needs Home O2 Discharge instructions: No Dressing / Incision Discharge Activity: Return to Normal Activity Weight Bearing Status: Full weight bearing Follow Up Care Test Results: Test results from this visit will be discussed in further detail at your follow- up appointment, if applicable. Discharge Plan Admission Admit Date/Time: 06/24/25 14:04 Primary Reason for Your Visit: Generalized weakness, debility Attending Provider: Clay Gresham Primary Care Provider: Suzanne Arroyo Consulting Providers: Kentrell Galindo Discharge Orders/Prescriptions Prescriptions: New oxycodone 5 mg Tablet 5 - 10 mg PO Q6H PRN (Reason: Pain Score 4-10) 7 Days Qty: 30 0RF Continued multivitamin Tablet 1 tab PO DAILY aspirin 81 mg tablet 81 mg PO DAILY turmeric root extract 500 mg capsule 1,000 mg PO BID metformin 500 mg tablet extended release 24 hr 1,000 mg PO BID venlafaxine 150 mg capsule,extended release 24hr 150 mg PO DAILY 30 Days Qty: 30 2RF bupropion HCl 300 mg tablet extended release 24 hr 300 mg PO QAM 30 Days Qty: 30 2RF vitamin D3-vitamin K2 125 mcg (5,000 unit)-100 mcg capsule 1 cap PO DAILY omega 9-rim-hzq-fish oil [Fish Oil] 1,200 (144-216) mg capsule 2 cap PO DAILY pioglitazone 30 mg tablet 30 mg PO QHS aripiprazole 15 mg tablet 15 mg PO QHS acetaminophen 500 mg Tablet 1,000 mg PO Q6H Qty: 30 0RF meloxicam 15 mg Tablet 15 mg PO DAILY Qty: 30 0RF carvedilol 12.5 mg tablet 12.5 mg PO BID nifedipine 90 mg tablet extended release 90 mg PO DAILY valsartan 160 mg tablet 160 mg PO DAILY melatonin 5 mg capsule 5 mg PO QHS PRN carbamazepine 200 mg tablet 400 mg PO BID vancomycin 1.75 gram recon soln 1.75 g IV Q12H 41 Days Rx Instructions: stop date 08/02/25. Dx: deep surg site infection. Weekly bmp, cbc, ESR, and vanc trough. Fax to [phone]. Routine picc care per protocol. cefepime 2 gram Recon Soln 2 g IV Q8 41 Days Qty: 123 0RF Rx Instructions: stop date 08/02/25. Dx: deep surg site infection. Weekly bmp, cbc, ESR, and vanc trough. Fax to [phone]. Routine picc care per protocol. alprazolam [Xanax] 0.25 mg tablet 0.25 mg PO DAILY PRN (Reason: anxiety) Qty: 10 0RF magnesium gluconate 500 mg tablet 500 mg PO .HS Discontinued methocarbamol 500 mg Tablet 750 mg PO TID PRN (Reason: Pain/spasms) Qty: 30 0RF Patient Comments: finished this morning oxycodone 5 mg Tablet 2.5 - 5 mg PO Q6H PRN (Reason: pain) 7 Days Qty: 28 0RF Patient Comments: took last dose today oxycodone 5 mg Tablet 5 mg PO Q4H PRN PRN (Reason: Pain Score 4-10) 3 Days Qty: 15 0RF Referrals / Follow Up: Yair Benedict MD [Med Staff - Active Staff, Orthopedics] - In 1 Week Kd Bowens MD [Med Staff - Active Staff, Infectious Disease] - See Referral Note Referral Note: in two weeks Suzanne Arroyo NP-C [Primary Care Provider, Family Practice] - In 1 Week Disposition Disposition (needs filled in before D/C Order can be placed): Home Health Service
--- NOTE | 2025-06-28 15:33 | DS.PCM_ITS ---
Providers Date of Admission: 06/24/25 Date of Discharge: 06/28/25 Primary Care Physician: REGGIE Arias Reason For Visit: PSOAS MUSCLE ABSCESS Diagnosis Discharge Diagnosis (1) Status post lumbar spinal fusion: Status: Inactive Code(s): Z98.1 - Arthrodesis status (2) Psoas abscess, right: Status: Acute Code(s): K68.12 - Psoas muscle abscess Plan 1. Right psoas muscle abscess #2 bipolar disorder #3 type 2 diabetes #4 essential hypertension #5 acute generalized weakness secondary to right psoas muscle abscess with pain Medications at Discharge Home Medications multivitamin 1 tab PO DAILY SUPPLEMENT 09/22/22 aspirin 81 mg tablet 81 mg PO DAILY HEART HEALTH 11/20/23 turmeric root extract 500 mg capsule 1,000 mg PO BID SUPPLEMENT 11/20/23 metformin 500 mg tablet,extended release 24 hr 1,000 mg PO BID DIABETES 12/17/23 bupropion HCl 300 mg 24 hr tablet, extended release 300 mg PO QAM PTSD 30 days #30 tabs 05/23/25 venlafaxine 150 mg capsule,extended release 24 hr 150 mg PO DAILY BIPOLAR 30 days #30 caps 05/23/25 aripiprazole 15 mg tablet 15 mg PO QHS BIPOLAR 05/26/25 omega 0-yba-gjl-fish oil 1,200 mg (144 mg-216 mg) capsule (Fish Oil) 2 cap PO DAILY SUPPLEMENT 05/26/25 pioglitazone 30 mg tablet 30 mg PO QHS DIABETES 05/26/25 vitamin D3 125 mcg (5,000 unit)-vitamin K2 100 mcg capsule 1 cap PO DAILY SUPPLEMENT 05/26/25 acetaminophen 500 mg tablet 1,000 mg (2 x 500 mg) PO Q6H #30 tabs 06/13/25 meloxicam 15 mg tablet 15 mg PO DAILY #30 tabs 06/13/25 carbamazepine 200 mg tablet 400 mg PO BID BIPOLAR 06/19/25 carvedilol 12.5 mg tablet 12.5 mg PO BID 06/19/25 melatonin 5 mg capsule 5 mg PO QHS PRN 06/19/25 nifedipine 90 mg tablet,extended release 90 mg PO DAILY 06/19/25 valsartan 160 mg tablet 160 mg PO DAILY 06/19/25 cefepime 2 gram solution for injection 2 g IV Q8 41 days #123 ea 06/22/25 vancomycin 1.75 gram intravenous solution 1.75 g IV Q12H 41 days 06/22/25 alprazolam 0.25 mg tablet (Xanax) 0.25 mg PO DAILY PRN anxiety #10 tabs 06/23/25 magnesium gluconate 500 mg tablet 500 mg PO .HS sleep 06/24/25 oxycodone 5 mg tablet 5 - 10 mg (1 - 2 x 5 mg) PO Q6H PRN Pain Score 4-10 7 days #30 tabs 06/28/25 Hospital Course Operations None Procedures None Summary of Care Provided Minutes Spent on Discharge: 31 Hospital Course: This 55-year-old white female was seen in the emergency room at [facility] with complaints of inability to care for self at home. She had recently been discharged from the hospital here after treatment for a psoas muscle abscess. Patient was admitted to [place] [address] and seen by PT and OT, her IV antibiotics were continued, originally the plan was for the patient to go to a group home facility but she was able to increase her ADLs in the hospital and had less pain and wanted to be discharged home. On 06/28/2025, patient was seen and examined: On examination she appeared in good health and spirits, she does not appear to be in any distress. Vital signs as documented. Skin warm and dry and without overt rashes. Neck without JVD, thyroid appears normal, trachea is midline, neck is supple. Lungs clear, normal air movement was noted. Heart exam notable for regular rhythm, normal sounds and absence of murmurs, rubs or gallops. Abdomen unremarkable and without evidence of organomegaly, masses, or abdominal aortic enlargement, bowel sounds are present in all 4 quadrants, no abdominal tenderness was noted. Extremities nonedematous, no cyanosis was noted, no clubbing was noted. Neuro: Cranial nerves II through XII are grossly intact, no focal motor deficits were noted, sensation to light touch and pinprick is intact, motor exam 5/5 throughout. Psych: Patient is alert and oriented x3, she does not appear anxious or depressed, she does not appear agitated. Patient was discharged home in stable condition on 06/28/2025. Weight / BMI Weight Weight: 100.9 kg Body Mass Index (BMI) 35.9 ABG / Lab / Microbiology Data 06/28/25 05:48 06/28/25 05:48 Laboratory: Laboratory Results - last 24 hr 06/27/25 15:49: POC Glucose 178 H 06/27/25 22:41: POC Glucose 129 H 06/28/25 05:48: WBC 7.9, RBC 3.87 L, Hgb 11.6 L, Hct 33.5 L, MCV 86.6, MCH 30.0, MCHC 34.6, RDW Std Deviation 37.7, RDW Coeff of Randell 12.1, Plt Count 355, MPV 8.6, Immature Gran % (Auto) 0.600, Neut % (Auto) 61.9, Lymph % (Auto) 25.9, [place] % (Auto) 9.4, Eos % (Auto) 1.7, Baso % (Auto) 0.5, Absolute Neuts (auto) 4.9, Absolute Lymphs (auto) 2.04, Nucleated RBC % 0, Sodium 125 L, Potassium 4.2, C hloride 93 L, Carbon Dioxide 19.3 L, Anion Gap 13, BUN 13, Creatinine 0.48 L, Estim Creat Clear Calc 156.89, Est GFR (MDRD) Non-Af 111, BUN/Creatinine Ratio 27.3 H, Glucose 164 H, Calcium 9.1 06/28/25 06:40: POC Glucose 168 H 06/28/25 11:37: POC Glucose 123 H D/C Instructions Weight Bearing Status: Full weight bearing DC O2, CPAP, BIPAP Needs Home O2 Discharge instructions: No Meaningful Use Info Meaningful Use Meaningful Use Diagnoses (Choose all that apply): None applicable Discharge Plan Admission Admit Date/Time: 06/24/25 14:04 Primary Reason for Your Visit: Generalized weakness, debility Attending Provider: Clay Gresham Primary Care Provider: Suzanne Arroyo Consulting Providers: Kentrell Galindo Discharge Orders/Prescriptions Prescriptions: New oxycodone 5 mg Tablet 5 - 10 mg PO Q6H PRN (Reason: Pain Score 4-10) 7 Days Qty: 30 0RF Continued multivitamin Tablet 1 tab PO DAILY aspirin 81 mg tablet 81 mg PO DAILY turmeric root extract 500 mg capsule 1,000 mg PO BID metformin 500 mg tablet extended release 24 hr 1,000 mg PO BID venlafaxine 150 mg capsule,extended release 24hr 150 mg PO DAILY 30 Days Qty: 30 2RF bupropion HCl 300 mg tablet extended release 24 hr 300 mg PO QAM 30 Days Qty: 30 2RF vitamin D3-vitamin K2 125 mcg (5,000 unit)-100 mcg capsule 1 cap PO DAILY omega 6-fui-eal-fish oil [Fish Oil] 1,200 (144-216) mg capsule 2 cap PO DAILY pioglitazone 30 mg tablet 30 mg PO QHS aripiprazole 15 mg tablet 15 mg PO QHS acetaminophen 500 mg Tablet 1,000 mg PO Q6H Qty: 30 0RF meloxicam 15 mg Tablet 15 mg PO DAILY Qty: 30 0RF carvedilol 12.5 mg tablet 12.5 mg PO BID nifedipine 90 mg tablet extended release 90 mg PO DAILY valsartan 160 mg tablet 160 mg PO DAILY melatonin 5 mg capsule 5 mg PO QHS PRN carbamazepine 200 mg tablet 400 mg PO BID vancomycin 1.75 gram recon soln 1.75 g IV Q12H 41 Days Rx Instructions: stop date 08/02/25. Dx: deep surg site infection. Weekly bmp, cbc, ESR, and vanc trough. Fax to [phone]. Routine picc care per protocol. cefepime 2 gram Recon Soln 2 g IV Q8 41 Days Qty: 123 0RF Rx Instructions: stop date 08/02/25. Dx: deep surg site infection. Weekly bmp, cbc, ESR, and vanc trough. Fax to [phone]. Routine picc care per protocol. alprazolam [Xanax] 0.25 mg tablet 0.25 mg PO DAILY PRN (Reason: anxiety) Qty: 10 0RF magnesium gluconate 500 mg tablet 500 mg PO .HS Discontinued methocarbamol 500 mg Tablet 750 mg PO TID PRN (Reason: Pain/spasms) Qty: 30 0RF Patient Comments: finished this morning oxycodone 5 mg Tablet 2.5 - 5 mg PO Q6H PRN (Reason: pain) 7 Days Qty: 28 0RF Patient Comments: took last dose today oxycodone 5 mg Tablet 5 mg PO Q4H PRN PRN (Reason: Pain Score 4-10) 3 Days Qty: 15 0RF Referrals / Follow Up: Yair Benedict MD [Med Staff - Active Staff, Orthopedics] - In 1 Week Kd Bowens MD [Med Staff - Active Staff, Infectious Disease] - See Referral Note Referral Note: in two weeks Suzanne Arroyo, [employer]-C [Primary Care Provider, Family Practice] - In 1 Week Disposition Disposition (needs filled in before D/C Order can be placed): Home Health Service Charges/Coding Visit Charges Inpatient E&M: 85844 Disch Hosp >30min
--- NOTE | 2025-06-29 12:11 | CASEMGMT ---
Spoke with Dora at [facility] who states they could see pt on Thursday for SOC. She is aware the main reason for SN is for picc dressing changes and labs and Thursday is fine for SOC. TC to pt, she is aware. Completed RN F/U TC, see intervention.
== END 2025-06-28 17:39 | disposition home health service (06) | DRG 373 ==
LOC: ED 14:06 → MS3 14:25
PROVIDERS: Admitting Provider Family Medicine; Emergency Provider Emergency Medicine; Visit Provider Internal Medicine
DX: K68.12 Psoas muscle abscess (principal); R62.7 Adult failure to thrive; E11.40 Type 2 diabetes mellitus with diabetic neuropathy, unspecified; F31.9 Bipolar disorder, unspecified; I10 Essential (primary) hypertension; Z68.35 Body mass index [BMI] 35.0-35.9, adult; G43.909 Migraine, unspecified, not intractable, without status migrainosus; E55.9 Vitamin D deficiency, unspecified; E78.00 Pure hypercholesterolemia, unspecified; M48.061 Spinal stenosis, lumbar region without neurogenic claudication; F17.210 Nicotine dependence, cigarettes, uncomplicated; F17.290 Nicotine dependence, other tobacco product, uncomplicated; F43.10 Post-traumatic stress disorder, unspecified; Z98.1 Arthrodesis status; G89.29 Other chronic pain; R53.81 Other malaise; M62.81 Muscle weakness (generalized); Z95.9 Presence of cardiac and vascular implant and graft, unspecified; Z86.73 Personal history of transient ischemic attack (TIA), and cerebral infarction without residual deficits; Z79.82 Long term (current) use of aspirin; Z79.84 Long term (current) use of oral hypoglycemic drugs; Z79.899 Other long term (current) drug therapy; Z87.440 Personal history of urinary (tract) infections
CPT/HCPCS: 36415; 72100; 80048; 82962; 85025; 97116; 97162; 97166; 97530; 97535; 99285; A4216; J2405